=== PATIENT | male | born 1955 | race African-American/Black ===

== ENCOUNTER 2016-09-28 16:22 | Inpatient (IN) | payer MEDICAID ==
[~2016-09-28] VITALS: Ht 157.5 cm; Wt 66.0 kg
[2016-09-28 16:23] VITALS: BP 103/53
--- NOTE | 2016-09-28 16:44 | Emergency Room Report ---
History of Present Illness General Chief Complaint: Multiple Trauma/Fall Source: Patient, EMS Present Illness HPI 60 YO M BIBBOBBY with chest pain at friends house. patient states "my ribs hurt." Patient endorses smoking cocaine from a pipe prior to onset of chest pain. Also c/o SOB. Denies fever/chills, cough, abd pain. Was just discharged from outside hospital [facility] yesterday after 1 week stay. Had HD yesterday. Allergies: Coded Allergies: No Known Allergies (Unverified , 09/28/16) Patient History Past Medical History: DM, HTN Past Surgical History: none Pertinent Family History: none Social History: Reports: drug use, smoking, Denies: alcohol use Immunizations: UTD Reviewed Nursing Documentation: PMH: Agreed, PSxH: Agreed Nursing Documentation-PMH Past Medical History: No History, Except For Hx Hypertension: Yes Hx Diabetes: Yes Review of Systems All Other Systems: negative except mentioned in HPI Physical Exam Vital Signs Date Time Temp Pulse Resp B/P Pulse Ox O2 Delivery O2 Flow Rate FiO2 09/28/16 16:17 90 18 102/69 99 Room Air Sp02 EP Interpretation: reviewed, normal General Appearance: normal inspection, well appearing, no apparent distress, alert, GCS 15, non-toxic, obese, Chronically Ill Head: normocephalic, atraumatic Eyes: right eye EOMI, right eye PERRL, bilateral eye other - Hyphema of left eye. No proptosis. EOMI. PERRLA. No pain to orbit ENT: normal ENT inspection, hearing grossly normal, normal voice Neck: normal inspection, full range of motion, supple, no bony tend Respiratory: normal inspection, normal breath sounds, no respiratory distress, no retraction, no accessory muscle use, no wheezing, crackles Cardiovascular #1: regular rate, rhythm, no edema Gastrointestinal: normal inspection, normal bowel sounds, non tender, soft, no guarding, no hernia Genitourinary: no CVA tenderness Musculoskeletal: other - Pitting edema R>L Neurologic: normal inspection, alert, oriented x3, responsive, white sugar boiler III-XII nml as tested, normal gait, speech normal Psychiatric: normal inspection, judgement/insight normal, mood/affect normal Skin: normal color, no rash, other - extremely dry, excoriated skin Medical Decision Making Diagnostic Impression: Primary Impression: Chest pain Qualified Codes: R07.9 - Chest pain, unspecified Additional Impression: Cocaine abuse ER Course Chest pain s/p cocaine use. VSS. Afebrile. Recent 1 week stay for ? possibly dialysis DDx ACS, angina, cocaine induced ischemia, PTX, PNA PLAN Cardiac, O2 monitor, labs, EKG, CXR Bipap ASA Will HD if significantly abnormal labs Likely admission EKG Diagnostic Results Rate: other - bifasciular block Rhythm: NSR ST Segments: no acute changes ASA given to the pt in ED: Yes Rhythm Strip Diag. Results EP Interpretation: yes Rate: 87 Rhythm: NSR, no ectopy, other - Multiple PVCs Chest X-Ray Diagnostic Results EP Interpretation: Yes Findings: no pneumothorax, other - + cardiomegaly, R>L pulm congestion Reevaluation Time: 17:50 Last Vital Signs Date Time Temp Pulse Resp B/P Pulse Ox O2 Delivery O2 Flow Rate FiO2 09/28/16 16:17 90 18 102/69 99 Room Air Status: improved Reevaluation Impression Labs: No leuks. H&H stable. Troponin 0. SerumCr 4.7 (likely baseline). BNP 68K. Patient has not given urine for Utox. CXR shows bilateral pulm congestion, R>L EKG NSR with atrial complexes, bifascicular block A: Patient given ASA for cocaine induced chest pain. Improved with BIPAP Could not give nitro due to low BP Admitted to [facility] bed under Dr Argueta at 632p, Disposition: ADMITTED INPATIENT Condition: Serious Referrals: NOT CHOSEN JULIOCESAR/,REFERRING (PCP) KESHIA SUÁREZ M.D. Sep 28, 2016 16:44
[2016-09-28 17:15] LABS: BASOPHILS % (AUTO) 1.3 % (0.0-2.0); LYMPHOCYTES % (AUTO) 7.8 % (20.0-45.0); MEAN CORPUSCULAR HEMOGLOBIN 26.8 PG (27.0-31.0); MEAN CORPUSCULAR HGB CONC 30.8 G/DL (32.0-36.0); MEAN CORPUSCULAR VOLUME 87 FL (80-99); MEAN PLATELET VOLUME 7.7 FL (6.5-10.1); MONOCYTES % (AUTO) 8.1 % (1.0-10.0); NEUTROPHILS % (AUTO) 81.8 % (45.0-75.0); PLATELET COUNT 149 K/UL (150-450); RED BLOOD COUNT 3.93 M/UL (4.70-6.10); RED CELL DISTRIBUTION WIDTH 19.1 % (11.6-14.8); WHITE BLOOD COUNT 6.6 K/UL (4.8-10.8)
[2016-09-28 17:30] VITALS: BP 117/69
[2016-09-28 17:31] LABS: TROPONIN I < 0.30 ng/mL (<=0.30)
[2016-09-28 17:35] LABS: ALANINE AMINOTRANSFERASE 6 U/L (3-41); ALBUMIN/GLOBULIN RATIO 0.8 (1.0-2.7); ANION GAP 20 (5-15); ASPARTATE AMINO TRANSFERASE 22 U/L (5-40); CALCIUM 8.5 mg/dL (8.6-10.2); CARBON DIOXIDE 21 mEQ/L (20-30); CHLORIDE 95 mEQ/L (98-107); CREATININE 4.7 mg/dL (0.7-1.2); GLOMERULAR FILTRATION RATE 15.4 mL/min (>60); HEMOLYSIS 0; POTASSIUM 4.1 mEQ/L (3.4-4.9); SODIUM 136 mEQ/L (135-145); TOTAL PROTEIN 6.1 g/dL (6.6-8.7)
[2016-09-28 17:45] LABS: CKMB < 1.5 ng/mL (< 6.7)
[2016-09-28 17:58] LABS: BILIRUBIN,DIRECT 1.2 mg/dL (0.1-0.3)
[2016-09-28] MEDS ORDERED: Aspirin Baby 81mg ORAL ONE (18:00)
[2016-09-28 18:30] VITALS: BP 126/69
[2016-09-28] MEDS ORDERED: Miralax 17gm pkt ORAL PRN (19:30)
[2016-09-28] MEDS ORDERED: DuoNeb 0.5-3(2.5)mg/3ml neb HHN PRN (19:30)
[2016-09-28 19:34] VITALS: BP 128/77
[2016-09-28 21:45] VITALS: BP 123/68
[2016-09-28] MEDS: Heparin 5000 units/ml inj SUBQ SCH (22:30)
[2016-09-28] MEDS: NovoLOG Insulin Flexpen SUBQ SCH (22:30)
[2016-09-29] VITALS (8 sets, daily range): BP systolic 110–131; BP diastolic 54–72
[2016-09-29 06:00] LABS: BASOPHILS % (AUTO) 0.9 % (0.0-2.0); EOSINOPHILS % (AUTO) 1.2 % (0.0-3.0); LYMPHOCYTES % (AUTO) 17.1 % (20.0-45.0); MEAN CORPUSCULAR HEMOGLOBIN 26.9 PG (27.0-31.0); MEAN CORPUSCULAR HGB CONC 30.5 G/DL (32.0-36.0); MEAN CORPUSCULAR VOLUME 88 FL (80-99); MEAN PLATELET VOLUME 8.3 FL (6.5-10.1); MONOCYTES % (AUTO) 8.2 % (1.0-10.0); NEUTROPHILS % (AUTO) 72.6 % (45.0-75.0); PLATELET COUNT 112 K/UL (150-450); RED BLOOD COUNT 3.77 M/UL (4.70-6.10); RED CELL DISTRIBUTION WIDTH 19.2 % (11.6-14.8); WHITE BLOOD COUNT 6.9 K/UL (4.8-10.8)
[2016-09-29 06:29] LABS: CALCIUM 8.6 mg/dL (8.6-10.2); GLOMERULAR FILTRATION RATE 14.4 mL/min (>60); PHOSPHORUS 3.9 mg/dL (2.5-4.8); POTASSIUM 4.5 mEQ/L (3.4-4.9)
[2016-09-29] MEDS: NovoLOG Insulin Flexpen SUBQ SCH ×4 (06:30→20:53)
[2016-09-29 06:48] LABS: TROPONIN I < 0.30 ng/mL (<=0.30)
[2016-09-29] MEDS: Heparin 5000 units/ml inj SUBQ SCH ×2 (09:20→20:52)
--- NOTE | 2016-09-29 09:31 | Diagnostic Imaging Report ---
Indication: PAIN Technique: One view of the chest Comparison: none Findings: There is a right jugular tunneled dialysis catheter in place. The heart is enlarged. There is generalized bilateral interstitial congestion. No definite focal airspace consolidation. The right pleural space is clear. The left pleural space is probably clear. Impression: Cardiomegaly with evidence of congestive heart failure Dialysis catheter
--- NOTE | 2016-09-29 10:13 | Cardiac Electrophysiology PN ---
Subjective Subjective Cardiology consult dictated. [id number]. Avoid Beta blockers for cocaine use. No NC. Bifascicular block. Objective Last 24 Hour Vital Signs Date Time Temp Pulse Resp B/P Pulse Ox O2 Delivery O2 Flow Rate FiO2 09/29/16 04:00 89 09/29/16 04:00 97.9 79 18 117/61 98 Nasal Cannula 09/29/16 00:00 97.7 82 20 120/64 97 Room Air 09/29/16 00:00 76 09/28/16 21:45 97.0 86 20 123/68 100 Nasal Cannula 2.0 09/28/16 21:30 83 09/28/16 21:15 82 16 98 Facial 30 09/28/16 21:00 82 23 118/63 97 Bi-pap 30 09/28/16 19:34 85 17 128/77 100 Bi-pap 30 09/28/16 18:47 86 16 98 Facial 30 09/28/16 18:30 86 20 126/69 100 Bi-pap 30 09/28/16 18:05 83 17 100 Facial 30 09/28/16 18:02 83 17 Bi-pap 30 09/28/16 17:54 30 09/28/16 17:30 84 22 117/69 96 Room Air 09/28/16 16:23 97.0 86 21 103/53 97 Room Air 09/28/16 16:17 90 18 102/69 99 Room Air Laboratory Tests Test 09/28/16 16:48 09/29/16 03:40 White Blood Count 6.6 K/UL (4.8-10.8) 6.9 K/UL (4.8-10.8) Red Blood Count 3.93 M/UL (4.70-6.10) L 3.77 M/UL (4.70-6.10) L Hemoglobin 10.5 G/DL (14.2-18.0) L 10.2 G/DL (14.2-18.0) L Hematocrit 34.2 % (42.0-52.0) L 33.3 % (42.0-52.0) L Mean Corpuscular Volume 87 FL (80-99) 88 FL (80-99) Mean Corpuscular Hemoglobin 26.8 PG (27.0-31.0) L 26.9 PG (27.0-31.0) L Mean Corpuscular Hemoglobin Concent 30.8 G/DL (32.0-36.0) L 30.5 G/DL (32.0-36.0) L Red Cell Distribution Width 19.1 % (11.6-14.8) H 19.2 % (11.6-14.8) H Platelet Count 149 K/UL (150-450) L 112 K/UL (150-450) L Mean Platelet Volume 7.7 FL (6.5-10.1) 8.3 FL (6.5-10.1) Neutrophils (%) (Auto) 81.8 % (45.0-75.0) H 72.6 % (45.0-75.0) Lymphocytes (%) (Auto) 7.8 % (20.0-45.0) L 17.1 % (20.0-45.0) L Monocytes (%) (Auto) 8.1 % (1.0-10.0) 8.2 % (1.0-10.0) Eosinophils (%) (Auto) 1.0 % (0.0-3.0) 1.2 % (0.0-3.0) Basophils (%) (Auto) 1.3 % (0.0-2.0) 0.9 % (0.0-2.0) Sodium Level 136 mEQ/L (135-145) 139 mEQ/L (135-145) Potassium Level 4.1 mEQ/L (3.4-4.9) 4.5 mEQ/L (3.4-4.9) Chloride Level 95 mEQ/L (98-107) L 97 mEQ/L (98-107) L Carbon Dioxide Level 21 mEQ/L (20-30) 22 mEQ/L (20-30) Anion Gap 20 (5-15) H 20 (5-15) H Blood Urea Nitrogen 31 mg/dL (7-23) H 32 mg/dL (7-23) H Creatinine 4.7 mg/dL (0.7-1.2) H 5.0 mg/dL (0.7-1.2) H Estimat Glomerular Filtration Rate 15.4 mL/min (>60) 14.4 mL/min (>60) Glucose Level 75 mg/dL (74-106) 66 mg/dL (74-106) L Calcium Level 8.5 mg/dL (8.6-10.2) L 8.6 mg/dL (8.6-10.2) Total Bilirubin 1.7 mg/dL (0.0-1.2) H Direct Bilirubin 1.2 mg/dL (0.1-0.3) H Aspartate Amino Transf (AST/SGOT) 22 U/L (5-40) Alanine Aminotransferase (ALT/SGPT) 6 U/L (3-41) Alkaline Phosphatase 111 U/L (40-129) Total Creatine Kinase 57 U/L (38-174) Creatine Kinase MB < 1.5 ng/mL (< 6.7) Creatine Kinase MB Relative Index 2.6 Troponin I < 0.30 ng/mL (<=0.30) < 0.30 ng/mL (<=0.30) Pro-B-Type Natriuretic Peptide 55055 pg/mL (0-125) H Total Protein 6.1 g/dL (6.6-8.7) L Albumin 2.8 g/dL (3.5-5.2) L 2.8 g/dL (3.5-5.2) L Globulin 3.3 g/dL Albumin/Globulin Ratio 0.8 (1.0-2.7) L Phosphorus Level 3.9 mg/dL (2.5-4.8) DILIA GUERRERO Sep 29, 2016 10:13
--- NOTE | 2016-09-29 12:36 | Consultation ---
Consult Note Consult Note asked to eval for dialysis management 60 YO M BIBEMS with chest pain at friends house. patient states "my ribs hurt." Patient endorses smoking cocaine from a pipe prior to onset of chest pain. Also c/o SOB. Denies fever/chills, cough, abd pain. Was just discharged from outside hospital [facility]" yesterday after 1 week stay. Had HD yesterday. Past Medical History: DM, HTN Hx Hypertension: Yes Hx Diabetes: Yes ER Physical Exam - General Physical Exam Vital Signs Date Time Temp Pulse Resp B/P Pulse Ox O2 Delivery O2 Flow Rate FiO2 09/28/16 16:17 90 18 102/69 99 Room Air Sp02 EP Interpretation: reviewed, normal General Appearance: normal inspection, well appearing, no apparent distress, alert, GCS 15, non-toxic, obese, Chronically Ill Head: normocephalic, atraumatic Eyes: right eye EOMI, right eye PERRL, bilateral eye other - Hyphema of left eye. No proptosis. EOMI. PERRLA. 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
[2016-09-29 15:23] LABS: INR 1.4 (0.9-1.1); PROTHROMBIN TIME 14.4 SEC (9.30-11.50)
[2016-09-29 15:36] LABS: FERRITIN 711 ng/mL (10-230)
[2016-09-29 15:52] LABS: IRON 74 ug/dL (59-158); TOTAL IRON BINDING CAPACITY 209 ug/dL (250-400)
--- NOTE | 2016-09-29 15:58 | Consultation ---
History of Present Illness General Date patient seen: Sep 29, 2016 Present Illness Allergies: Coded Allergies: No Known Allergies (Unverified , 09/28/16) Patient History Healthcare decision maker Resuscitation status Advanced Directive on File Physical Exam Last 24 Hour Vital Signs Date Time Temp Pulse Resp B/P Pulse Ox O2 Delivery O2 Flow Rate FiO2 09/29/16 12:35 97.3 67 15 114/67 Room Air 09/29/16 12:35 Room Air 09/29/16 12:00 97.2 81 20 127/67 Room Air 09/29/16 08:00 98.2 82 20 131/72 96 09/29/16 08:00 96 09/29/16 04:00 89 09/29/16 04:00 97.9 79 18 117/61 98 Nasal Cannula 09/29/16 00:00 97.7 82 20 120/64 97 Room Air 09/29/16 00:00 76 09/28/16 21:45 97.0 86 20 123/68 100 Nasal Cannula 2.0 09/28/16 21:30 83 09/28/16 21:15 82 16 98 Facial 30 09/28/16 21:00 82 23 118/63 97 Bi-pap 30 09/28/16 19:34 85 17 128/77 100 Bi-pap 30 09/28/16 18:47 86 16 98 Facial 30 09/28/16 18:30 86 20 126/69 100 Bi-pap 30 09/28/16 18:05 83 17 100 Facial 30 09/28/16 18:02 83 17 Bi-pap 30 09/28/16 17:54 30 09/28/16 17:30 84 22 117/69 96 Room Air 09/28/16 16:23 97.0 86 21 103/53 97 Room Air 09/28/16 16:17 90 18 102/69 99 Room Air Laboratory Tests Test 09/28/16 16:48 09/29/16 03:40 09/29/16 14:44 White Blood Count 6.6 K/UL (4.8-10.8) 6.9 K/UL (4.8-10.8) Red Blood Count 3.93 M/UL (4.70-6.10) L 3.77 M/UL (4.70-6.10) L Hemoglobin 10.5 G/DL (14.2-18.0) L 10.2 G/DL (14.2-18.0) L Hematocrit 34.2 % (42.0-52.0) L 33.3 % (42.0-52.0) L Mean Corpuscular Volume 87 FL (80-99) 88 FL (80-99) Mean Corpuscular Hemoglobin 26.8 PG (27.0-31.0) L 26.9 PG (27.0-31.0) L Mean Corpuscular Hemoglobin Concent 30.8 G/DL (32.0-36.0) L 30.5 G/DL (32.0-36.0) L Red Cell Distribution Width 19.1 % (11.6-14.8) H 19.2 % (11.6-14.8) H Platelet Count 149 K/UL (150-450) L 112 K/UL (150-450) L Mean Platelet Volume 7.7 FL (6.5-10.1) 8.3 FL (6.5-10.1) Neutrophils (%) (Auto) 81.8 % (45.0-75.0) H 72.6 % (45.0-75.0) Lymphocytes (%) (Auto) 7.8 % (20.0-45.0) L 17.1 % (20.0-45.0) L Monocytes (%) (Auto) 8.1 % (1.0-10.0) 8.2 % (1.0-10.0) Eosinophils (%) (Auto) 1.0 % (0.0-3.0) 1.2 % (0.0-3.0) Basophils (%) (Auto) 1.3 % (0.0-2.0) 0.9 % (0.0-2.0) Sodium Level 136 mEQ/L (135-145) 139 mEQ/L (135-145) Potassium Level 4.1 mEQ/L (3.4-4.9) 4.5 mEQ/L (3.4-4.9) Chloride Level 95 mEQ/L (98-107) L 97 mEQ/L (98-107) L Carbon Dioxide Level 21 mEQ/L (20-30) 22 mEQ/L (20-30) Anion Gap 20 (5-15) H 20 (5-15) H Blood Urea Nitrogen 31 mg/dL (7-23) H 32 mg/dL (7-23) H Creatinine 4.7 mg/dL (0.7-1.2) H 5.0 mg/dL (0.7-1.2) H Estimat Glomerular Filtration Rate 15.4 mL/min (>60) 14.4 mL/min (>60) Glucose Level 75 mg/dL (74-106) 66 mg/dL (74-106) L Calcium Level 8.5 mg/dL (8.6-10.2) L 8.6 mg/dL (8.6-10.2) Total Bilirubin 1.7 mg/dL (0.0-1.2) H Direct Bilirubin 1.2 mg/dL (0.1-0.3) H Aspartate Amino Transf (AST/SGOT) 22 U/L (5-40) Alanine Aminotransferase (ALT/SGPT) 6 U/L (3-41) Alkaline Phosphatase 111 U/L (40-129) Total Creatine Kinase 57 U/L (38-174) Creatine Kinase MB < 1.5 ng/mL (< 6.7) Creatine Kinase MB Relative Index 2.6 Troponin I < 0.30 ng/mL (<=0.30) < 0.30 ng/mL (<=0.30) Pro-B-Type Natriuretic Peptide 98741 pg/mL (0-125) H Total Protein 6.1 g/dL (6.6-8.7) L Albumin 2.8 g/dL (3.5-5.2) L 2.8 g/dL (3.5-5.2) L Globulin 3.3 g/dL Albumin/Globulin Ratio 0.8 (1.0-2.7) L Neutrophils % (Manual) Pending Lymphocytes % (Manual) Pending Platelet Estimate Pending Platelet Morphology Pending Phosphorus Level 3.9 mg/dL (2.5-4.8) Erythrocyte Sedimentation Rate Pending Prothrombin Time 14.4 SEC (9.30-11.50) H Prothromb Time International Ratio 1.4 (0.9-1.1) H Iron Level 74 ug/dL (59-158) Total Iron Binding Capacity 209 ug/dL (250-400) L Percent Iron Saturation 35 % (15-50) Unsaturated Iron Binding 135 ug/dL (112-346) Ferritin 711 ng/mL (10-230) H Hepatitis A IgM Antibody Pending Hepatitis B Surface Antigen Pending Hepatitis B Core IgM Antibody Pending Hepatitis C Antibody Pending HIV (1&2) Antibody Rapid Negative (NEGATIVE) Microbiology Date/Time Source Procedure Growth Status 09/28/16 21:20 Back Gram Stain - Final Resulted 09/28/16 21:20 Back Wound Culture Pending Resulted Height (Feet): 5 Height (Inches): 2.00 Weight (Pounds): 180 Medications Current Medications Medications (Trade) Dose Ordered Sig/Lillian Route PRN Reason Start Time Stop Time Status Last Admin Dose Admin Acetaminophen (Tylenol) 650 mg Q4H PRN ORAL Fever 09/28/16 19:30 10/28/16 19:29 Albuterol/ Ipratropium (DuoNeb 0.5-3(2.5)mg/3ml) 3 ml EVERY 4 HOURS PRN HHN Shortness of Breath 09/28/16 19:30 10/03/16 19:29 Amlodipine Besylate (Norvasc) 5 mg DAILY ORAL 09/30/16 09:00 10/30/16 08:59 Dextrose (Dextrose 50%) STAT PRN IV Hypoglycemia 09/28/16 19:30 10/28/16 19:29 Heparin Sodium (Porcine) (Heparin 5000 units/ml) 5,000 units EVERY 12 HOURS SUBQ 09/28/16 21:00 10/28/16 20:59 09/29/16 09:20 Insulin Aspart (NovoLOG) BEFORE MEALS AND HS SUBQ 09/28/16 21:00 10/28/16 20:59 Ondansetron HCl (Zofran) 4 mg Q6H PRN IVP Nausea & Vomiting 09/28/16 19:30 10/28/16 19:29 Polyethylene Glycol (Miralax) 17 gm DAILYPRN PRN ORAL Constipation 09/28/16 19:30 10/28/16 19:29 Temazepam (Restoril) 15 mg HSPRN PRN ORAL Insomnia 09/28/16 19:30 10/05/16 19:29 Assessment/Plan Assessment/Plan (1) Cocaine abuse (2) Chest pain (3) CHF (4) ESRD on Hemodialysis Seen Dictated ARRON EDWARD Sep 29, 2016 15:58
[2016-09-29 15:59] LABS: ANISOCYTOSIS 2+; BAND NEUTROPHILS % (MANUAL) 0 % (0-8); BASOPHILS % (MANUAL) 0 % (0-2); EOSINOPHILS % (MANUAL) 0 % (0-3); HYPOCHROMASIA 1+; LYMPHOCYTES % (MANUAL) 15 % (20-45); NEUTROPHILS % (MANUAL) 78 % (45-75); PLATELET CLUMPS 2+; PLATELET ESTIMATE ADEQUATE; TOTAL CELLS COUNTED 100
[2016-09-29 16:00] LABS: BURR CELLS 1+
[2016-09-29 16:06] LABS: PATH BLOOD SMEAR/OMC SENT TO PATHOLOGIST
--- NOTE | 2016-09-29 17:54 | Wound Care Consultation ---
Wound Assessment Wound Assessment : Wound Present on Admission: Yes New Wound: No Status Change of Wound: No Wound Location Body Site Modif: right Wound Location Body Site: back Wound Type: traumatic injury Shari Test: Does not Shari Wound Thickness: Partial Thickness Wound Length: 0.5 Wound Width: 0.5 Wound Depth: 0.2 Percent of Wound Carter/Red: 100 Wound Drainage Description: Serosanguineous Wound Drainage Amount: Scant Wound Drainage Odor: None/Absent Tissue Surrounding Wound: Erythemic Wound General Appearance: Reddened Wound Comment #1 Right Lateral Back wound Recommendation -Keep clean and dry -Turn and reposition -Optimize nutrition -Local wound care as ordered with adaptic and dry drg -Assess and f/u accordingly for any changes MARY KAY IRIZARRY RN Sep 29, 2016 17:54
--- NOTE | 2016-09-29 18:33 | Consultation ---
History of Present Illness General Date patient seen: Sep 29, 2016 Chief Complaint: Multiple Trauma/Fall Reason for Consultation: shortness of breath after smoking cocaine use Present Illness HPI Patient is a 60 y/o man with extensive pmhx including ESRD, polysubstance abuse who presents to the emergency with c/o shortness of breath after most recent smoking cocaine use. Initial CXR in the ER reveals pulmovascular congestive changes. Patient being admitted and treated with oxygen therapy and close observation. Allergies: Coded Allergies: No Known Allergies (Unverified , 09/28/16) Patient History Healthcare decision maker Resuscitation status Advanced Directive on File Review of Systems Respiratory: Reports: BLUM, cough, orthopnea, see HPI, shortness of breath, stridor, wheezing Physical Exam General Appearance: moderate distress Lines, tubes and drains: peripheral HEENT: normocephalic, atraumatic, anicteric, PERRL Neck: non-tender, normal alignment, supple Respiratory/Chest: chest wall non-tender, decreased breath sounds, crackles/ rales, rhonchi - bilaterally Breasts: no masses Cardiovascular/Chest: normal peripheral pulses, regular rhythm, no JVD, tachycardia Abdomen: normal bowel sounds, non tender, soft, no organomegaly Genitourinary/Rectal: normal genital exam, normal rectal exam Extremities: normal range of motion, non-tender Skin Exam: palled 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, no motor/sensory deficits Last 24 Hour Vital Signs Date Time Temp Pulse Resp B/P Pulse Ox O2 Delivery O2 Flow Rate FiO2 09/29/16 17:09 98.1 71 15 117/66 Nasal Cannula 09/29/16 17:08 Room Air 2.0 30 09/29/16 17:04 Room Air 09/29/16 16:00 97.1 90 23 118/54 100 Room Air 09/29/16 16:00 71 09/29/16 12:35 97.3 67 15 114/67 Room Air 09/29/16 12:35 Room Air 09/29/16 12:00 97.2 81 20 127/67 Room Air 09/29/16 08:00 98.2 82 20 131/72 96 09/29/16 08:00 96 09/29/16 04:00 89 09/29/16 04:00 97.9 79 18 117/61 98 Nasal Cannula 09/29/16 00:00 97.7 82 20 120/64 97 Room Air 09/29/16 00:00 76 09/28/16 21:45 97.0 86 20 123/68 100 Nasal Cannula 2.0 09/28/16 21:30 83 09/28/16 21:15 82 16 98 Facial 30 09/28/16 21:00 82 23 118/63 97 Bi-pap 30 09/28/16 19:34 85 17 128/77 100 Bi-pap 30 09/28/16 18:47 86 16 98 Facial 30 Intake and Output 09/28/16 09/29/16 19:00 07:00 # Voids 2 # Bowel Movements 2 Laboratory Tests Test 09/29/16 03:40 09/29/16 14:44 White Blood Count 6.9 K/UL (4.8-10.8) Red Blood Count 3.77 M/UL (4.70-6.10) L Hemoglobin 10.2 G/DL (14.2-18.0) L Hematocrit 33.3 % (42.0-52.0) L Mean Corpuscular Volume 88 FL (80-99) Mean Corpuscular Hemoglobin 26.9 PG (27.0-31.0) L Mean Corpuscular Hemoglobin Concent 30.5 G/DL (32.0-36.0) L Red Cell Distribution Width 19.2 % (11.6-14.8) H Platelet Count 112 K/UL (150-450) L Mean Platelet Volume 8.3 FL (6.5-10.1) Neutrophils (%) (Auto) 72.6 % (45.0-75.0) Lymphocytes (%) (Auto) 17.1 % (20.0-45.0) L Monocytes (%) (Auto) 8.2 % (1.0-10.0) Eosinophils (%) (Auto) 1.2 % (0.0-3.0) Basophils (%) (Auto) 0.9 % (0.0-2.0) Differential Total Cells Counted 100 Neutrophils % (Manual) 78 % (45-75) H Lymphocytes % (Manual) 15 % (20-45) L Monocytes % (Manual) 7 % (1-10) Eosinophils % (Manual) 0 % (0-3) Basophils % (Manual) 0 % (0-2) Band Neutrophils 0 % (0-8) Platelet Estimate Adequate Platelet Morphology Clumped Platelets 2+ Hypochromasia 1+ Anisocytosis 2+ [place] Cells 1+ Sodium Level 139 mEQ/L (135-145) Potassium Level 4.5 mEQ/L (3.4-4.9) Chloride Level 97 mEQ/L (98-107) L Carbon Dioxide Level 22 mEQ/L (20-30) Anion Gap 20 (5-15) H Blood Urea Nitrogen 32 mg/dL (7-23) H Creatinine 5.0 mg/dL (0.7-1.2) H Estimat Glomerular Filtration Rate 14.4 mL/min (>60) Glucose Level 66 mg/dL (74-106) L Calcium Level 8.6 mg/dL (8.6-10.2) Phosphorus Level 3.9 mg/dL (2.5-4.8) Troponin I < 0.30 ng/mL (<=0.30) Albumin 2.8 g/dL (3.5-5.2) L Erythrocyte Sedimentation Rate 18 MM/HR (0-20) Prothrombin Time 14.4 SEC (9.30-11.50) H Prothromb Time International Ratio 1.4 (0.9-1.1) H Iron Level 74 ug/dL (59-158) Total Iron Binding Capacity 209 ug/dL (250-400) L Percent Iron Saturation 35 % (15-50) Unsaturated Iron Binding 135 ug/dL (112-346) Ferritin 711 ng/mL (10-230) H Hepatitis A IgM Antibody Pending Hepatitis B Surface Antigen Pending Hepatitis B Core IgM Antibody Pending Hepatitis C Antibody Pending HIV (1&2) Antibody Rapid Negative (NEGATIVE) Microbiology Date/Time Source Procedure Growth Status 09/28/16 21:20 Back Gram Stain - Final Resulted 09/28/16 21:20 Back Wound Culture Pending Resulted Height (Feet): 5 Height (Inches): 2.00 Weight (Pounds): 180 Medications Current Medications Medications (Trade) Dose Ordered Sig/Lillian Route PRN Reason Start Time Stop Time Status Last Admin Dose Admin Acetaminophen (Tylenol) 650 mg Q4H PRN ORAL Fever 09/28/16 19:30 10/28/16 19:29 Albuterol/ Ipratropium (DuoNeb 0.5-3(2.5)mg/3ml) 3 ml EVERY 4 HOURS PRN HHN Shortness of Breath 09/28/16 19:30 10/03/16 19:29 Amlodipine Besylate (Norvasc) 5 mg DAILY ORAL 09/30/16 09:00 10/30/16 08:59 Dextrose (Dextrose 50%) STAT PRN IV Hypoglycemia 09/28/16 19:30 10/28/16 19:29 Heparin Sodium (Porcine) (Heparin 5000 units/ml) 5,000 units EVERY 12 HOURS SUBQ 09/28/16 21:00 10/28/16 20:59 09/29/16 09:20 Insulin Aspart (NovoLOG) BEFORE MEALS AND HS SUBQ 09/28/16 21:00 10/28/16 20:59 Ondansetron HCl (Zofran) 4 mg Q6H PRN IVP Nausea & Vomiting 09/28/16 19:30 10/28/16 19:29 Polyethylene Glycol (Miralax) 17 gm DAILYPRN PRN ORAL Constipation 09/28/16 19:30 10/28/16 19:29 Temazepam (Restoril) 15 mg HSPRN PRN ORAL Insomnia 09/28/16 19:30 10/05/16 19:29 CARLOS ALBERTO HERMAN Sep 29, 2016 18:33
--- NOTE | 2016-09-29 20:03 | Cardiology Report ---
APPROVED REPORT EXAM: Two-dimensional and M-mode echocardiogram with Doppler and color Doppler. INDICATION Left ventricular function M-Mode DIMENSIONS IVSd0.9 (0.7-1.1cm)Left Atrium (MM)3.7 (1.6-4.0cm) LVDd6.4 (3.5-5.6cm)Aortic Root3.3 (2.0-3.7cm) PWd1.0 (0.7-1.1cm)Aortic Cusp Exc.1.8 (1.5-2.0cm) LVDs5.3 (2.5-4.0cm) PWs1.2 cm Moderate left ventricular enlargement. Global left ventricular hypokinesis. Worse septal apper akinetic s. Left ventricular ejection fraction estimated to be 30-35 %. No evidence of left ventricular hypertrophy. No evidence of pericardial fat or effusion. Severe right atrial enlargement by 2D. Mild right atrial enlargement by 2D. Focal aortic valve sclerosis with adequate cusp excursion Mildly thickened mitral valve leaflets with normal excursion. Mitral annulus and aortic root calcification. Pulmonic valve is well visualized. Normal tricuspid valve structure. IVC dilated at 2.7cm no physiologic collapse with respiration.RA pressure of 20mmHg. A color flow and spectral Doppler study was performed and revealed: No aortic regurgitation. Severe mitral regurgitation. Left ventricular diastolic dysfunction not obtainable due to arrhythmia. Severe tricuspid regurgitation. Tricuspid systolic velocities suggests peak right ventricular systolic pressure of 50 mmHg Consistent with moderate pulmonary hypertension. Pulmonic regurgitation present.
--- NOTE | 2016-09-29 20:28 | Consultation ---
DATE OF CONSULTATION: 09/29/2016 CARDIOLOGY CONSULTATION REFERRING PHYSICIAN: Liu Elizondo M.D. REASON FOR CONSULTATION: Chest pain. HISTORY OF PRESENT ILLNESS: The patient is a 60-year-old gentleman with history of hypertension and end-stage renal disease on hemodialysis as well as diabetes, who was just discharged from outside hospital just yesterday. The patient states that he started getting chest pain after he smoked cocaine from a pipe. The patient came to the emergency room and EKG showed sinus rhythm with PACs and right bundle-branch block and left posterior fascicular block, but no acute ST-T wave changes. Cardiology consultation was obtained for further evaluation. The patient had hemodialysis the day prior to admission. REVIEW OF SYSTEMS: Review of systems was negative other than what was mentioned in the history of present illness. PAST MEDICAL HISTORY: 1. Hypertension. 2. Diabetes. 3. End-stage renal disease, on hemodialysis. FAMILY HISTORY: Noncontributory. SOCIAL HISTORY: He uses cocaine and smokes tobacco. PHYSICAL EXAMINATION: VITAL SIGNS: Blood pressure is 117/61, pulse 79, respirations 18, and he is afebrile. HEAD AND NECK: Showed no jugular venous distention or carotid bruits. LUNGS: Clear. CARDIOVASCULAR: Shows regular S1 and S2 with no gallop or murmur. ABDOMEN: Soft and nontender. EXTREMITIES: No pitting edema. He has a dialysis access in the right chest. LABORATORY DATA: His labs showed a white count 6.9, hematocrit 10.2, hematocrit 33, and platelet count was 112,000. Sodium 139, potassium 4.5, BUN of 32, creatinine 5, and glucose of 66. BNP 8377. Troponins are negative x2. ASSESSMENT AND PLAN: 1. Chest pain after using cocaine. This was likely due to vasospasm. The patient was ruled out for myocardial infarction. EKG showed acute ST and T-wave abnormality. We will avoid beta-david in view of the patient's cocaine use. We will get an echocardiogram to evaluate for ejection fraction and wall motion abnormality. 2. History of hypertension. angiotensin receptor blockers in view of the patient's renal failure and risk of hyperkalemia, beta-david for the patient's cocaine use. The patient is on Norvasc 5 mg daily. 3. End-stage renal disease, on hemodialysis. 4. Diabetes. 5. Substance abuse with cocaine. Thank you very much, Dr. Elizondo, for allowing me to participate in the care of this patient. Please do not hesitate to contact me for any questions regarding my evaluation. Domingo Escalera M.D. DR: AR JOB#: [id number] CC:
--- NOTE | 2016-09-29 20:46 | Cardiology Report ---
APPROVED REPORT EKG Measurement Heart [id number] Sinus rhythm with premature atrial complexes with aberrant conduction Right bundle branch block Left posterior fascicular block Bifascicular block Cannot rule out Anterior infarct, age undetermined Abnormal ECG
--- NOTE | 2016-09-29 23:18 | Consultation ---
DATE OF CONSULTATION: 09/29/2016 HEMATOLOGY/ONCOLOGY CONSULTATION CONSULTING PHYSICIAN: Hugh Lopez M.D REQUESTING PHYSICIAN: Liu Elizondo M.D. REASON FOR CONSULTATION: Evaluation of anemia and thrombocytopenia. IDENTIFICATION: Dear Dr. Caro Hatfield, The patient is a pleasant 60-year-old female with past medical history significant for hypertension, diabetes, end-stage renal disease ____ at this time presents to [facility] with recently smoked cocaine prior to the chest pain. Cardiology service as well as Nephrology was consulted the patient had recently hemodialysis. The patient was noted to be anemic upon presentation with hemoglobin 10.2 and platelet count decreased to 112,000; therefore, service was consulted for further evaluation and treatment. BNP . PAST MEDICAL HISTORY: Hypertension, diabetes mellitus, oliguria, end-stage renal disease. PAST SURGICAL HISTORY: None noted. MEDICATIONS: Reviewed. ALLERGIES: No significant drug allergy. SOCIAL HISTORY: No alcohol or tobacco use however does have illicit drug use of cocaine. REVIEW OF SYSTEMS: Constitutional: No fever, chills, or night sweats. Skin: No rashes, lumps, or itching. HEENT: No headache or vision changes. Breasts: No lumps, pain, or discharge. Pulmonary: No cough, sputum, or shortness of breath. Cardiovascular: The patient does have some chest pain . Gastrointestinal: No nausea, vomiting, or diarrhea. Genitourinary: No dysuria, frequency, or urgency. Musculoskeletal: No joint swelling or muscle pain. Neurological: No dizziness, fainting, or seizures reported. PHYSICAL EXAMINATION: GENERAL: The patient is in no acute distress. VITAL SIGNS: Temperature is 97.8 degrees Fahrenheit , pulse 81, respiratory rate 20, blood pressure 127/67, and pulse oximetry 96% on room air. PULMONARY: Decreased breath sounds. CARDIOVASCULAR: Regular rate. ABDOMEN: Soft, nontender, and nondistended. EXTREMITIES: A 1+ edema. LABORATORY AND DIAGNOSTIC DATA: BUN of 32 and creatinine 5. WBC 6.9, hemoglobin 10.2, and hematocrit 33, platelet count 112,000. Troponin less than 0.02. ASSESSMENT: 1. Anemia secondary to end-stage renal disease. 2. Decreased hemoglobin and hematocrit, rule out gastrointestinal bleed. 3. Thrombocytopenia potentially secondary to underlying infection. 4. Hypertension. 5. Diabetes mellitus. 6. End-stage renal disease on hemodialysis. 7. Cocaine use history. RECOMMENDATIONS: 1. Monitor counts. 2. Transfuse if hemoglobin less than 7.5. 3. We will order HIV and hepatitis panel. 4. INR has been ordered to evaluate coagulopathy 5. Ultrasound of the abdomen ordered to rule out hepatosplenomegaly given thrombocytopenia. 6. Peripheral smear pending. 7. Anemia workup has been sent. 8. We will followup on Nephrology, Pulmonary, and Cardiology recommendation. 9. DVT prophylaxis with heparin. 10. GI prophylaxis as needed. 11. Pain control. 12. Discussed with staff. Thank you, Dr. Liu Elizondo, for this kind referral. Please do not hesitate to contact me with any further questions. Hugh Lopez M.D. DR: Deja JOB#: [id number] CC:
--- NOTE | 2016-09-30 00:17 | History and Physical Report ---
DATE OF ADMISSION: 09/28/2016 HISTORY OF PRESENT ILLNESS: The patient came in with cocaine-induced chest pain and pulmonary edema. Patient since yesterday. BNP was elevated as well, so brought down to [facility]. Basically the patient had chest pain. The patient reported that he had been smoking cocaine prior to the chest pain onset, also he is complaining of shortness of breath. Denies any nausea, vomiting, diarrhea. Denies cough. PAST MEDICAL HISTORY: Malignant hypertension, drug abuse, hypertension, diabetes, insomnia, constipation. PAST SURGICAL HISTORY: Surgery related to dialysis for access. MEDICATIONS: He is on Norvasc. ALLERGIES: No known allergies. SOCIAL HISTORY: Does have a history of drug abuse. FAMILY HISTORY: Unable to obtain. REVIEW OF SYSTEMS: HEENT: Denies headache. Respiratory: Does have shortness of breath. Denies cough. Cardiovascular: Reported chest pain for a couple of days. Gastrointestinal: . Does have occasional heartburn. Extremities: Does have generalized chronic pain. Central Nervous System: Denies change in vision or speech pattern. PHYSICAL EXAMINATION: VITAL SIGNS: Temperature is 97 degrees, pulse 86, and blood pressure is 123/63. HEENT: PERRLA. NECK: Supple. No lymphadenopathy. CHEST: Clear to auscultation. CARDIOVASCULAR: Regular rate and rhythm. No murmurs, rubs, or gallops. GASTROINTESTINAL: Soft, distended, and nontender. No organomegaly. Positive bowel sounds. EXTREMITIES: Moves all four extremities. Reflexes are equal on both sides. LABORATORY DATA: WBC of 6.6, hemoglobin 10.5, and platelets 149,000. Sodium 132, potassium 4.1, BUN of 31, creatinine 0.7, glucose 75. Chest x-ray shows possible pulmonary edema. He has elevated CPK. ASSESSMENT: 1. Pulmonary edema. 2. Chest pain, rule out congestive heart failure exacerbation. 3. End-stage renal disease on hemodialysis, the patient missed dialysis, as well as has a history of drug abuse. I have asked Dr. Mas, Dr. Duran, Dr. Rodriguez, Dr. Escalera to see the patient for the above-mentioned diagnoses and treatment. Liu Elizondo M.D. DR: Krista JOB#: [id number] CC:
[2016-09-30 00:37] VITALS: BP 129/71
--- NOTE | 2016-09-30 01:48 | Consultation ---
DATE OF CONSULTATION: PAIN MANAGEMENT CONSULTATION: CONSULTING PHYSICIAN: Rosario Rodriguez M.D. REFERRING PHYSICIAN: Liu Elizondo M.D. CHIEF COMPLAINT: Chest pain. HISTORY OF PRESENT ILLNESS: The patient is a 60-year-old male, who is being seen in the [facility] for initial comprehensive pain management consultation. The patient has a history of hypertension, end-stage renal disease on hemodialysis, diabetes, had been discharged from outside hospital Patient admits that he smoked cocaine from a pipe and started to have chest pain and was under the care of Dr. Elizondo. He had been seen by camera mechanic and this time, . PAST MEDICAL HISTORY: Hypertension, diabetes, end-stage renal disease on hemodialysis, and CHF. ALLERGIES: No known drug allergies. SOCIAL HISTORY: He is a cocaine abuser and smokes tobacco. Denies alcohol abuse. REVIEW OF SYSTEMS: Denies rash, fever, chills, sweating, dizziness, drowsiness, blurred vision, sore throat, or change in weight. No nausea, vomiting, diarrhea, or blood in the stool or urine. No bowel or bladder incontinence. No dysuria. He is complaining of chest pain. PHYSICAL EXAMINATION: GENERAL: Alert, awake, and oriented. VITAL SIGNS: Blood pressure is 129/70, heart rate 82, respiratory rate 20, and temperature 98 degrees Fahrenheit. HEENT: PERRLA. NECK: Range of motion is full in all directions. No tenderness to paracervical muscles. No adenopathy. LUNGS: Decreased breath sounds bilaterally. HEART: S1 and S2, regular. ABDOMEN: Obese. BACK: Range of motion is decreased in flexion and extension with tenderness to paraspinous and trapezius muscles. EXTREMITIES: Right upper extremity range of motion is reduced due to the catheter placement and swelling. Left upper extremity range of motion is full in all directions. Sensory is intact. Reflexes are normal. No adenopathy. Lower extremity range of motion is full in all directions. No cyanosis, no clubbing, and no edema. Sensory is intact. Reflexes are normal. No adenopathy. ASSESSMENT AND PLAN: This is a 60-year-old male with cocaine abuse, chest pain , CHF, end-stage renal disease on hemodialysis Tylenol 650 mg as needed for pain. The patient was discussed with Dr. Rodriguez and Dr. Rodriguez concurred. We will follow the patient. Thank you very much for the courtesy of this consultation. Rosario Rodriguez M.D. IVETT Henry DR: Shauna JOB#: [id number] CC: JOEY
[2016-09-30 04:00] VITALS: BP 139/80
[2016-09-30 06:14] LABS: BASOPHILS % (AUTO) 0.9 % (0.0-2.0); EOSINOPHILS % (AUTO) 0.6 % (0.0-3.0); MEAN CORPUSCULAR HEMOGLOBIN 26.8 PG (27.0-31.0); MEAN CORPUSCULAR HGB CONC 30.5 G/DL (32.0-36.0); MEAN CORPUSCULAR VOLUME 88 FL (80-99); MONOCYTES % (AUTO) 8.5 % (1.0-10.0); NEUTROPHILS % (AUTO) 78.9 % (45.0-75.0); PLATELET COUNT 153 K/UL (150-450); RED BLOOD COUNT 3.17 M/UL (4.70-6.10); RED CELL DISTRIBUTION WIDTH 19.5 % (11.6-14.8); WHITE BLOOD COUNT 8.9 K/UL (4.8-10.8)
[2016-09-30] MEDS: NovoLOG Insulin Flexpen SUBQ SCH ×4 (06:27→20:05)
[2016-09-30 06:51] LABS: TROPONIN I < 0.30 ng/mL (<=0.30)
[2016-09-30 06:58] LABS: HEMOGLOBIN A1C 5.7 % (< 6.0)
[2016-09-30 06:59] LABS: CRP QUANT 5.3 mg/dL (< 0.5); URIC ACID 3.7 mg/dL (3.0-7.5)
[2016-09-30 07:00] LABS: ALBUMIN/GLOBULIN RATIO 0.8 (1.0-2.7); CALCIUM 8.5 mg/dL (8.6-10.2); CHOLESTEROL/HDL RATIO 4.3 (3.3-4.4); GLOMERULAR FILTRATION RATE 18.5 mL/min (>60); POTASSIUM 4.6 mEQ/L (3.4-4.9); TOTAL PROTEIN 6.3 g/dL (6.6-8.7)
[2016-09-30 07:06] LABS: THYROID STIMULATING HORMONE 4.03 uIU/mL (0.300-4.500)
[2016-09-30 08:00] VITALS: BP 132/68
[2016-09-30] MEDS: Heparin 5000 units/ml inj SUBQ SCH ×2 (08:50→20:05)
[2016-09-30 08:51] LABS: BILIRUBIN,DIRECT 0.8 mg/dL (0.1-0.3)
--- NOTE | 2016-09-30 08:58 | General Progress Note ---
Assessment/Plan Problem List: (1) Cocaine abuse ICD Codes: F14.10 - Cocaine abuse, uncomplicated SNOMED: 86443557, [id number] (2) Chest pain ICD Codes: R07.9 - Chest pain, unspecified SNOMED: 75486526, [id number] Qualifiers: Qualified Codes: R07.9 - Chest pain, unspecified Status: progressing Assessment/Plan afebrile vitals stable reviewed chart and labs no cp afebrile clinically improving Subjective ROS Limited/Unobtainable: Yes Constitutional: Reports: no symptoms Allergies: Coded Allergies: No Known Allergies (Unverified , 09/28/16) Objective Last 24 Hour Vital Signs Date Time Temp Pulse Resp B/P Pulse Ox O2 Delivery O2 Flow Rate FiO2 09/30/16 08:49 96 139/80 09/30/16 04:00 96 09/30/16 04:00 98.2 114 20 139/80 94 Room Air 09/30/16 00:37 97.4 102 28 129/71 90 Room Air 09/30/16 00:00 104 09/29/16 20:00 96.8 98 23 110/60 95 Room Air 09/29/16 20:00 100 09/29/16 17:09 98.1 71 15 117/66 Nasal Cannula 09/29/16 17:08 Room Air 2.0 30 09/29/16 17:04 Room Air 09/29/16 16:00 97.1 90 23 118/54 100 Room Air 09/29/16 16:00 71 09/29/16 12:35 97.3 67 15 114/67 Room Air 09/29/16 12:35 Room Air 09/29/16 12:00 97.2 81 20 127/67 Room Air Intake and Output 09/29/16 09/30/16 19:00 07:00 Intake Total 480 ml Output Total 3100 ml Balance -3100 ml 480 ml Intake Oral 480 ml Output Hemodialysis UF 3100 ml # Voids 5 # Bowel Movements 4 5 Laboratory Tests 09/29/16 14:44: Erythrocyte Sedimentation Rate 18, Prothrombin Time 14.4H, Prothromb Time International Ratio 1.4H, Iron Level 74, Total Iron Binding Capacity 209L, Percent Iron Saturation 35, Unsaturated Iron Binding 135, Ferritin 711H, Hepatitis A IgM Antibody Negative, Hepatitis B Surface Antigen Negative, Hepatitis B Core IgM Antibody Negative, Hepatitis C Antibody <0.1, HIV (1&2) Antibody Rapid Negative 09/30/16 04:55: White Blood Count 8.9, Red Blood Count 3.17L, Hemoglobin 8.5L, Hematocrit 27.9L , Mean Corpuscular Volume 88, Mean Corpuscular Hemoglobin 26.8L, Mean Corpuscular Hemoglobin Concent 30.5L, Red Cell Distribution Width 19.5H, Platelet Count 153, Mean Platelet Volume 8.0, Neutrophils (%) (Auto) 78.9H, Lymphocytes (%) (Auto) 11.0L, Monocytes (%) (Auto) 8.5, Eosinophils (%) (Auto) 0.6, Basophils (%) (Auto) 0.9, Sodium Level 138, Potassium Level 4.6, Chloride Level 94L, Carbon Dioxide Level 27, Anion Gap 17H, Blood Urea Nitrogen 59#H, Creatinine 4.0H, Estimat Glomerular Filtration Rate 18.5, Glucose Level 78, Hemoglobin A1c 5.7, Uric Acid 3.7, Calcium Level 8.5L, Phosphorus Level 3.0, Magnesium Level 2.0, Total Bilirubin 1.5H, Direct Bilirubin [Pending], Gamma Glutamyl Transpeptidase 34, Aspartate Amino Transf (AST/SGOT) 22, Alanine Aminotransferase (ALT/SGPT) 6, Alkaline Phosphatase 108, Ammonia 59, Total Creatine Kinase 49, Troponin I < 0.30, C-Reactive Protein, Quantitative 5.3H, Pro-B-Type Natriuretic Peptide > 90946Y, Total Protein 6.3L, Albumin 2.9L, Globulin 3.4, Albumin/Globulin Ratio 0.8L, Triglycerides Level 75, Cholesterol Level 113, LDL Cholesterol 72, HDL Cholesterol 26, Cholesterol/HDL Ratio 4.3, Thyroid Stimulating Hormone (TSH) 4.030, Free Thyroxine 0.69L Height (Feet): 5 Height (Inches): 2.00 Weight (Pounds): 180 EENT: PERRL/EOMI Neck: supple Cardiovascular: normal rate Respiratory/Chest: lungs clear Abdomen: soft Liu Elizondo MD Sep 30, 2016 08:58
--- NOTE | 2016-09-30 11:06 | General Progress Note ---
Assessment/Plan Assessment/Plan (1) Cocaine abuse (2) Chest pain (3) CHF (4) ESRD on Hemodialysis Pt will be continued on current medication regimen. Pt was d/w Dr. Rodriguez and he concurred. Subjective Allergies: Coded Allergies: No Known Allergies (Unverified , 09/28/16) Subjective REVIEW OF SYSTEMS: Denies rash, fever, chills, sweating, dizziness, drowsiness, blurred vision, sore throat, or change in weight. No nausea, vomiting, diarrhea, or blood in the stool or urine. No bowel or bladder incontinence. No dysuria. SUBJECTIVE: Pt is comfortable in bed in no pain at this time. Objective Last 24 Hour Vital Signs Date Time Temp Pulse Resp B/P Pulse Ox O2 Delivery O2 Flow Rate FiO2 09/30/16 08:49 96 139/80 09/30/16 08:00 97.7 99 20 132/68 97 Room Air 09/30/16 08:00 90 09/30/16 06:41 97 19 Room Air 21 09/30/16 04:00 96 09/30/16 04:00 98.2 114 20 139/80 94 Room Air 09/30/16 00:37 97.4 102 28 129/71 90 Room Air 09/30/16 00:00 104 09/29/16 20:00 96.8 98 23 110/60 95 Room Air 09/29/16 20:00 100 09/29/16 17:09 98.1 71 15 117/66 Nasal Cannula 09/29/16 17:08 Room Air 2.0 30 09/29/16 17:04 Room Air 09/29/16 16:00 97.1 90 23 118/54 100 Room Air 09/29/16 16:00 71 09/29/16 12:35 97.3 67 15 114/67 Room Air 09/29/16 12:35 Room Air 09/29/16 12:00 97.2 81 20 127/67 Room Air Intake and Output 09/29/16 09/30/16 19:00 07:00 Intake Total 480 ml Output Total 3100 ml Balance -3100 ml 480 ml Intake Oral 480 ml Output Hemodialysis UF 3100 ml # Voids 5 # Bowel Movements 4 5 Laboratory Tests 09/29/16 14:44: Erythrocyte Sedimentation Rate 18, Prothrombin Time 14.4H, Prothromb Time International Ratio 1.4H, Iron Level 74, Total Iron Binding Capacity 209L, Percent Iron Saturation 35, Unsaturated Iron Binding 135, Ferritin 711H, Hepatitis A IgM Antibody Negative, Hepatitis B Surface Antigen Negative, Hepatitis B Core IgM Antibody Negative, Hepatitis C Antibody <0.1, HIV (1&2) Antibody Rapid Negative 09/30/16 04:55: White Blood Count 8.9, Red Blood Count 3.17L, Hemoglobin 8.5L, Hematocrit 27.9L , Mean Corpuscular Volume 88, Mean Corpuscular Hemoglobin 26.8L, Mean Corpuscular Hemoglobin Concent 30.5L, Red Cell Distribution Width 19.5H, Platelet Count 153, Mean Platelet Volume 8.0, Neutrophils (%) (Auto) 78.9H, Lymphocytes (%) (Auto) 11.0L, Monocytes (%) (Auto) 8.5, Eosinophils (%) (Auto) 0.6, Basophils (%) (Auto) 0.9, Sodium Level 138, Potassium Level 4.6, Chloride Level 94L, Carbon Dioxide Level 27, Anion Gap 17H, Blood Urea Nitrogen 59#H, Creatinine 4.0H, Estimat Glomerular Filtration Rate 18.5, Glucose Level 78, Hemoglobin A1c 5.7, Uric Acid 3.7, Calcium Level 8.5L, Phosphorus Level 3.0, Magnesium Level 2.0, Total Bilirubin 1.5H, Direct Bilirubin 0.8H, Gamma Glutamyl Transpeptidase 34, Aspartate Amino Transf (AST/SGOT) 22, Alanine Aminotransferase (ALT/SGPT) 6, Alkaline Phosphatase 108, Ammonia 59, Total Creatine Kinase 49, Troponin I < 0.30, C-Reactive Protein, Quantitative 5.3H, Pro-B-Type Natriuretic Peptide > 38945B, Total Protein 6.3L, Albumin 2.9L, Globulin 3.4, Albumin/Globulin Ratio 0.8L, Triglycerides Level 75, Cholesterol Level 113, LDL Cholesterol 72, HDL Cholesterol 26, Cholesterol/HDL Ratio 4.3, Thyroid Stimulating Hormone (TSH) 4.030, Free Thyroxine 0.69L Height (Feet): 5 Height (Inches): 2.00 Weight (Pounds): 180 Objective PHYSICAL EXAMINATION: GENERAL: Alert, awake, and oriented. HEENT: PERRLA. NECK: Range of motion is full in all directions. No tenderness to paracervical muscles. No adenopathy. LUNGS: Decreased breath sounds bilaterally. HEART: S1 and S2, regular. ABDOMEN: Obese. BACK: Range of motion is decreased in flexion and extension with tenderness to paraspinous and trapezius muscles. EXTREMITIES: No cyanosis, no clubbing, and no edema. NEURO: No changes. ARRON EDWARD Sep 30, 2016 11:06
--- NOTE | 2016-09-30 11:49 | General Progress Note ---
Assessment/Plan Assessment/Plan ASSESSMENT: 1. Anemia secondary to end-stage renal disease. Ferritin is 711 2. Decreased hemoglobin and hematocrit, rule out gastrointestinal bleed. 3. Thrombocytopenia potentially secondary to underlying infection. hep and hiv negative 4. Coagulopathy INR is 1.4 5. Diabetes mellitus. 6. End-stage renal disease on hemodialysis. 7. Cocaine use history. RECOMMENDATIONS: 1. Monitor counts. 2. Transfuse if hemoglobin less than 7.5. 4. INR has been ordered to evaluate coagulopathy--> elevated get a US abd 5. Ultrasound of the abdomen 6. Peripheral smear pending. 7. Anemia workup has been reviewed 8. We will followup on Nephrology, Pulmonary, and Cardiology recommendations 9. DVT prophylaxis with heparin. 10. GI prophylaxis as needed. 11. Pain control. 12. Discussed with staff. Thank you, Hugh Lopez MD Subjective Constitutional: Reports: no symptoms HEENT: Reports: no symptoms Cardiovascular: Reports: no symptoms Respiratory: Reports: no symptoms Gastrointestinal/Abdominal: Reports: no symptoms Genitourinary: Reports: no symptoms 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: Reports: no symptoms Endocrine: Reports: no symptoms Hematologic/Lymphatic: Reports: anemia Allergies: Coded Allergies: No Known Allergies (Unverified , 09/28/16) Subjective stable, monitoring h/h Objective Last 24 Hour Vital Signs Date Time Temp Pulse Resp B/P Pulse Ox O2 Delivery O2 Flow Rate FiO2 09/30/16 08:49 96 139/80 09/30/16 08:00 97.7 99 20 132/68 97 Room Air 09/30/16 08:00 90 09/30/16 06:41 97 19 Room Air 21 09/30/16 04:00 96 09/30/16 04:00 98.2 114 20 139/80 94 Room Air 09/30/16 00:37 97.4 102 28 129/71 90 Room Air 09/30/16 00:00 104 09/29/16 20:00 96.8 98 23 110/60 95 Room Air 09/29/16 20:00 100 09/29/16 17:09 98.1 71 15 117/66 Nasal Cannula 09/29/16 17:08 Room Air 2.0 30 09/29/16 17:04 Room Air 09/29/16 16:00 97.1 90 23 118/54 100 Room Air 12/21/16 16:00 71 09/29/16 12:35 97.3 67 15 114/67 Room Air 09/29/16 12:35 Room Air 09/29/16 12:00 97.2 81 20 127/67 Room Air Intake and Output 09/29/16 09/30/16 19:00 07:00 Intake Total 480 ml Output Total 3100 ml Balance -3100 ml 480 ml Intake Oral 480 ml Output Hemodialysis UF 3100 ml # Voids 5 # Bowel Movements 4 5 Laboratory Tests 09/29/16 14:44: Erythrocyte Sedimentation Rate 18, Prothrombin Time 14.4H, Prothromb Time International Ratio 1.4H, Iron Level 74, Total Iron Binding Capacity 209L, Percent Iron Saturation 35, Unsaturated Iron Binding 135, Ferritin 711H, Hepatitis A IgM Antibody Negative, Hepatitis B Surface Antigen Negative, Hepatitis B Core IgM Antibody Negative, Hepatitis C Antibody <0.1, HIV (1&2) Antibody Rapid Negative 09/30/16 04:55: White Blood Count 8.9, Red Blood Count 3.17L, Hemoglobin 8.5L, Hematocrit 27.9L , Mean Corpuscular Volume 88, Mean Corpuscular Hemoglobin 26.8L, Mean Corpuscular Hemoglobin Concent 30.5L, Red Cell Distribution Width 19.5H, Platelet Count 153, Mean Platelet Volume 8.0, Neutrophils (%) (Auto) 78.9H, Lymphocytes (%) (Auto) 11.0L, Monocytes (%) (Auto) 8.5, Eosinophils (%) (Auto) 0.6, Basophils (%) (Auto) 0.9, Sodium Level 138, Potassium Level 4.6, Chloride Level 94L, Carbon Dioxide Level 27, Anion Gap 17H, Blood Urea Nitrogen 59#H, Creatinine 4.0H, Estimat Glomerular Filtration Rate 18.5, Glucose Level 78, Hemoglobin A1c 5.7, Uric Acid 3.7, Calcium Level 8.5L, Phosphorus Level 3.0, Magnesium Level 2.0, Total Bilirubin 1.5H, Direct Bilirubin 0.8H, Gamma Glutamyl Transpeptidase 34, Aspartate Amino Transf (AST/SGOT) 22, Alanine Aminotransferase (ALT/SGPT) 6, Alkaline Phosphatase 108, Ammonia 59, Total Creatine Kinase 49, Troponin I < 0.30, C-Reactive Protein, Quantitative 5.3H, Pro-B-Type Natriuretic Peptide > 28552X, Total Protein 6.3L, Albumin 2.9L, Globulin 3.4, Albumin/Globulin Ratio 0.8L, Triglycerides Level 75, Cholesterol Level 113, LDL Cholesterol 72, HDL Cholesterol 26, Cholesterol/HDL Ratio 4.3, Thyroid Stimulating Hormone (TSH) 4.030, Free Thyroxine 0.69L Height (Feet): 5 Height (Inches): 2.00 Weight (Pounds): 180 General Appearance: no apparent distress EENT: normal ENT inspection Neck: normal alignment Cardiovascular: regular rhythm Respiratory/Chest: no respiratory distress Abdomen: no organomegaly Genitourinary/Rectal: normal rectal exam Extremities: normal inspection Edema: 1+ Leg (L), 1+ Leg (R) Edema: mild edema Neurologic: alert Skin: warm/dry Hugh Lopez Sep 30, 2016 11:49
[2016-09-30 12:00] VITALS: BP 124/62
--- NOTE | 2016-09-30 12:10 | Nephrology Progress Note ---
Assessment/Plan Problem List: (1) ESRD (end stage renal disease) on dialysis (2) Chest pain (3) Cocaine abuse (4) Anemia in chronic kidney disease Plan HD in AM start Epogen Watch BP nephrovite daily Subjective Subjective Some SOB Objective Objective Last 24 Hour Vital Signs Date Time Temp Pulse Resp B/P Pulse Ox O2 Delivery O2 Flow Rate FiO2 09/30/16 08:49 96 139/80 09/30/16 08:00 97.7 99 20 132/68 97 Room Air 09/30/16 08:00 90 09/30/16 06:41 97 19 Room Air 09/30/16 04:00 96 09/30/16 04:00 98.2 114 20 139/80 94 Room Air 09/30/16 00:37 97.4 102 28 129/71 90 Room Air 09/30/16 00:00 104 09/29/16 20:00 96.8 98 23 110/60 95 Room Air 09/29/16 20:00 100 09/29/16 17:09 98.1 71 15 117/66 Nasal Cannula 09/29/16 17:08 Room Air 2.0 30 09/29/16 17:04 Room Air 09/29/16 16:00 97.1 90 23 118/54 100 Room Air 09/29/16 16:00 71 09/29/16 12:35 97.3 67 15 114/67 Room Air 09/29/16 12:35 Room Air Intake and Output 09/29/16 09/30/16 19:00 07:00 Intake Total 480 ml Output Total 3100 ml Balance -3100 ml 480 ml Intake Oral 480 ml Output Hemodialysis UF 3100 ml # Voids 5 # Bowel Movements 4 5 Laboratory Tests 09/29/16 14:44: Erythrocyte Sedimentation Rate 18, Prothrombin Time 14.4H, Prothromb Time International Ratio 1.4H, Iron Level 74, Total Iron Binding Capacity 209L, Percent Iron Saturation 35, Unsaturated Iron Binding 135, Ferritin 711H, Hepatitis A IgM Antibody Negative, Hepatitis B Surface Antigen Negative, Hepatitis B Core IgM Antibody Negative, Hepatitis C Antibody <0.1, HIV (1&2) Antibody Rapid Negative 09/30/16 04:55: White Blood Count 8.9, Red Blood Count 3.17L, Hemoglobin 8.5L, Hematocrit 27.9L , Mean Corpuscular Volume 88, Mean Corpuscular Hemoglobin 26.8L, Mean Corpuscular Hemoglobin Concent 30.5L, Red Cell Distribution Width 19.5H, Platelet Count 153, Mean Platelet Volume 8.0, Neutrophils (%) (Auto) 78.9H, Lymphocytes (%) (Auto) 11.0L, Monocytes (%) (Auto) 8.5, Eosinophils (%) (Auto) 0.6, Basophils (%) (Auto) 0.9, Sodium Level 138, Potassium Level 4.6, Chloride Level 94L, Carbon Dioxide Level 27, Anion Gap 17H, Blood Urea Nitrogen 59#H, Creatinine 4.0H, Estimat Glomerular Filtration Rate 18.5, Glucose Level 78, Hemoglobin A1c 5.7, Uric Acid 3.7, Calcium Level 8.5L, Phosphorus Level 3.0, Magnesium Level 2.0, Total Bilirubin 1.5H, Direct Bilirubin 0.8H, Gamma Glutamyl Transpeptidase 34, Aspartate Amino Transf (AST/SGOT) 22, Alanine Aminotransferase (ALT/SGPT) 6, Alkaline Phosphatase 108, Ammonia 59, Total Creatine Kinase 49, Troponin I < 0.30, C-Reactive Protein, Quantitative 5.3H, Pro-B-Type Natriuretic Peptide > [id number], Total Protein 6.3L, Albumin 2.9L, Globulin 3.4, Albumin/Globulin Ratio 0.8L, Triglycerides Level 75, Cholesterol Level 113, LDL Cholesterol 72, HDL Cholesterol 26, Cholesterol/HDL Ratio 4.3, Thyroid Stimulating Hormone (TSH) 4.030, Free Thyroxine 0.69L Height (Feet): 5 Height (Inches): 2.00 Weight (Pounds): 180 Cardiovascular: regular rhythm Respiratory/Chest: rhonchi - bilaterally Extremities: other - no edema HAI BURGESS Sep 30, 2016 12:10
[2016-09-30] MEDS ORDERED: Morphine Sulfate 2mg/ml Inj IM PRN (13:45)
[2016-09-30] MEDS ORDERED: Nephrovite tab ORAL SCH (14:00)
--- NOTE | 2016-09-30 14:42 | Pulmonology Progress Note ---
Assessment/Plan Problems: (1) Acute respiratory failure (2) Anemia in chronic kidney disease (3) ESRD (end stage renal disease) on dialysis (4) Chest pain (5) Fluid overload (6) Cocaine abuse (7) Back pain Assessment/Plan HD as needed check electrolytes pain control Subjective ROS Limited/Unobtainable: Yes Interval Events: feeling better Allergies: Coded Allergies: No Known Allergies (Unverified , 09/28/16) Objective Last 24 Hour Vital Signs Date Time Temp Pulse Resp B/P Pulse Ox O2 Delivery O2 Flow Rate FiO2 09/30/16 12:00 98 09/30/16 12:00 97.7 97 21 124/62 92 Room Air 09/30/16 08:49 96 139/80 09/30/16 08:00 97.7 99 20 132/68 97 Room Air 09/30/16 08:00 90 09/30/16 06:41 97 19 Room Air 21 09/30/16 04:00 96 09/30/16 04:00 98.2 114 20 139/80 94 Room Air 09/30/16 00:37 97.4 102 28 129/71 90 Room Air 09/30/16 00:00 104 09/29/16 20:00 96.8 98 23 110/60 95 Room Air 09/29/16 20:00 100 09/29/16 17:09 98.1 71 15 117/66 Nasal Cannula 09/29/16 17:08 Room Air 2.0 30 09/29/16 17:04 Room Air 09/29/16 16:00 97.1 90 23 118/54 100 Room Air 09/29/16 16:00 71 Intake and Output 09/29/16 09/30/16 19:00 07:00 Intake Total 480 ml Output Total 3100 ml Balance -3100 ml 480 ml Intake Oral 480 ml Output Hemodialysis UF 3100 ml # Voids 5 # Bowel Movements 4 5 General Appearance: WD/WN HEENT: normocephalic, atraumatic Respiratory/Chest: chest wall non-tender, lungs clear Cardiovascular: normal peripheral pulses, normal rate Abdomen: normal bowel sounds, no organomegaly Extremities: no cyanosis 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: director of enrollment II-XII grossly normal Microbiology Date/Time Source Procedure Growth Status 09/28/16 21:20 Back Gram Stain - Final Resulted 09/28/16 21:20 Back Wound Culture - Preliminary NO GROWTH AFTER 24 HOURS Resulted Laboratory Tests 09/29/16 14:44: Erythrocyte Sedimentation Rate 18, Prothrombin Time 14.4H, Prothromb Time International Ratio 1.4H, Iron Level 74, Total Iron Binding Capacity 209L, Percent Iron Saturation 35, Unsaturated Iron Binding 135, Ferritin 711H, Hepatitis A IgM Antibody Negative, Hepatitis B Surface Antigen Negative, Hepatitis B Core IgM Antibody Negative, Hepatitis C Antibody <0.1, HIV (1&2) Antibody Rapid Negative 09/30/16 04:55: White Blood Count 8.9, Red Blood Count 3.17L, Hemoglobin 8.5L, Hematocrit 27.9L , Mean Corpuscular Volume 88, Mean Corpuscular Hemoglobin 26.8L, Mean Corpuscular Hemoglobin Concent 30.5L, Red Cell Distribution Width 19.5H, Platelet Count 153, Mean Platelet Volume 8.0, Neutrophils (%) (Auto) 78.9H, Lymphocytes (%) (Auto) 11.0L, Monocytes (%) (Auto) 8.5, Eosinophils (%) (Auto) 0.6, Basophils (%) (Auto) 0.9, Sodium Level 138, Potassium Level 4.6, Chloride Level 94L, Carbon Dioxide Level 27, Anion Gap 17H, Blood Urea Nitrogen 59#H, Creatinine 4.0H, Estimat Glomerular Filtration Rate 18.5, Glucose Level 78, Hemoglobin A1c 5.7, Uric Acid 3.7, Calcium Level 8.5L, Phosphorus Level 3.0, Magnesium Level 2.0, Total Bilirubin 1.5H, Direct Bilirubin 0.8H, Gamma Glutamyl Transpeptidase 34, Aspartate Amino Transf (AST/SGOT) 22, Alanine Aminotransferase (ALT/SGPT) 6, Alkaline Phosphatase 108, Ammonia 59, Total Creatine Kinase 49, Troponin I < 0.30, C-Reactive Protein, Quantitative 5.3H, Pro-B-Type Natriuretic Peptide > 51561I, Total Protein 6.3L, Albumin 2.9L, Globulin 3.4, Albumin/Globulin Ratio 0.8L, Triglycerides Level 75, Cholesterol Level 113, LDL Cholesterol 72, HDL Cholesterol 26, Cholesterol/HDL Ratio 4.3, Thyroid Stimulating Hormone (TSH) 4.030, Free Thyroxine 0.69L Current Medications Medications (Trade) Dose Ordered Sig/Lillian Route PRN Reason Start Time Stop Time Status Last Admin Dose Admin Acetaminophen (Tylenol) 650 mg Q4H PRN ORAL Fever 09/28/16 19:30 10/28/16 19:29 Albuterol/ Ipratropium (DuoNeb 0.5-3(2.5)mg/3ml) 3 ml EVERY 4 HOURS PRN HHN Shortness of Breath 09/28/16 19:30 10/03/16 19:29 Amlodipine Besylate (Norvasc) 5 mg DAILY ORAL 09/30/16 09:00 10/30/16 08:59 09/30/16 08:49 Dextrose (Dextrose 50%) STAT PRN IV Hypoglycemia 09/28/16 19:30 10/28/16 19:29 Epoetin Joseph (Procrit (for ESRD on dialysis)) 5,000 units TUE-TUE-TUE SUBQ 10/01/16 21:00 10/31/16 20:59 Heparin Sodium (Porcine) (Heparin 5000 units/ml) 5,000 units EVERY 12 HOURS SUBQ 09/28/16 21:00 10/28/16 20:59 09/30/16 08:50 Heparin Sodium (Porcine) (Heparin Sod 1000 units/ml 10ml) 2,000 unit ONCE PRN IV FOR HD 10/01/16 06:00 10/01/16 23:59 Insulin Aspart (NovoLOG) BEFORE MEALS AND HS SUBQ 09/28/16 21:00 10/28/16 20:59 Morphine Sulfate (Morphine Sulfate) 2 mg Q4H PRN IM For Pain 09/30/16 13:45 10/07/16 13:44 UNV Ondansetron HCl (Zofran) 4 mg Q6H PRN IVP Nausea & Vomiting 09/28/16 19:30 10/28/16 19:29 Polyethylene Glycol (Miralax) 17 gm DAILYPRN PRN ORAL Constipation 09/28/16 19:30 10/28/16 19:29 Sodium Chloride (Sodium Chloride 1000ml bag) 1,000 ml @ 500 mls/hr Q2H PRN IVLG sbp<90 during hd 10/01/16 06:00 10/01/16 23:59 Temazepam (Restoril) 15 mg HSPRN PRN ORAL Insomnia 09/28/16 19:30 10/05/16 19:29 Vitamin B Complex/ Vit C/Folic Acid 1 tab 1 tab DAILY ORAL 09/30/16 14:00 10/30/16 13:59 09/30/16 14:19 CARLOS ALBERTO HERMAN Sep 30, 2016 14:42
[2016-09-30 16:00] VITALS: BP 130/80
[2016-09-30] MEDS ORDERED: Morphine Sulfate 2mg/ml Inj IVP PRN ×3 (16:30→20:30)
[2016-09-30 19:00] VITALS: BP 111/70
[2016-09-30] MEDS ORDERED: DuoNeb 0.5-3(2.5)mg/3ml neb HHN PRN ×2 (19:30→21:00)
[2016-09-30] MEDS ORDERED: Miralax 17gm pkt ORAL PRN ×2 (19:30)
[2016-09-30] MEDS ORDERED: NovoLOG Insulin Flexpen SUBQ SCH (21:00)
[2016-09-30] MEDS ORDERED: Heparin 5000 units/ml inj SUBQ SCH (21:00)
[2016-10-01] VITALS: BP 109/64
[2016-10-01 04:00] VITALS: BP 117/68
[2016-10-01] MEDS ORDERED: Heparin Sod 1000 units/ml 10ml IV PRN (06:00)
[2016-10-01] MEDS: NovoLOG Insulin Flexpen SUBQ SCH ×4 (06:30→21:00)
[2016-10-01] MEDS ORDERED: Heparin Sod 1000 units/ml 10ml INJ ONE (07:30)
[2016-10-01 07:57] VITALS: BP 108/58
[2016-10-01] MEDS: Nephrovite tab ORAL SCH (08:22)
[2016-10-01] MEDS: Heparin 5000 units/ml inj SUBQ SCH ×2 (08:22→21:00)
--- NOTE | 2016-10-01 08:28 | General Progress Note ---
Assessment/Plan Assessment/Plan (1) Cocaine abuse (2) Chest pain (3) CHF (4) ESRD on Hemodialysis (5) Lumbar sprain s/p fall Pt will be discontinued off Morphine will be started on Lidoderm patch Q12H on Q12H off to back and tramadol 50mg q4H PRN pain, Xray of L spine will be ordered. Pt was d/w Dr. Rodriguez and he concurred. Subjective Date patient seen: Oct 01, 2016 Time patient seen: 07:30 - am Allergies: Coded Allergies: No Known Allergies (Unverified , 09/28/16) Subjective REVIEW OF SYSTEMS: Denies rash, fever, chills, sweating, dizziness, drowsiness, blurred vision, sore throat, or change in weight. No nausea, vomiting, diarrhea, or blood in the stool or urine. No bowel or bladder incontinence. No dysuria. c/o back pain SUBJECTIVE: Pt was found by nurse on the floor of bathroom after a fall now c/o back pain. He had a h/o mild back pain however due to fall it has been aggravated. Pt was started Morphine yesterday but has not requested it. Objective Last 24 Hour Vital Signs Date Time Temp Pulse Resp B/P Pulse Ox O2 Delivery O2 Flow Rate FiO2 10/01/16 08:22 98 108/58 10/01/16 07:57 97.4 98 19 108/58 98 Room Air 10/01/16 07:03 74 18 Room Air 10/01/16 04:00 97.9 88 18 117/68 97 Room Air 10/01/16 00:00 98.8 96 20 109/64 96 Room Air 09/30/16 20:12 78 19 Room Air 21 09/30/16 19:00 97.2 95 20 111/70 95 Room Air 09/30/16 16:00 98 09/30/16 16:00 97.8 99 19 130/80 97 09/30/16 12:00 98 09/30/16 12:00 97.7 97 21 124/62 92 Room Air 09/30/16 08:49 96 139/80 Intake and Output 09/30/16 10/01/16 19:00 07:00 Intake Total 800 ml 340 ml Balance 800 ml 340 ml Intake Oral 800 ml 340 ml # Voids 3 3 # Bowel Movements 4 3 Laboratory Tests 10/01/16 05:30: Urine Opiates Screen Negative, Urine Barbiturates Screen Negative, Phencyclidine (PCP) Screen Negative, Urine Amphetamines Screen Negative, Urine Benzodiazepines Screen Negative, Urine Cocaine Screen PositiveH, Urine Marijuana (THC) Screen Negative Height (Feet): 5 Height (Inches): 2.00 Weight (Pounds): 180 Objective PHYSICAL EXAMINATION: GENERAL: Alert, awake, and oriented. HEENT: PERRLA. NECK: Range of motion is full in all directions. No tenderness to paracervical muscles. No adenopathy. LUNGS: Decreased breath sounds bilaterally. HEART: S1 and S2, regular. ABDOMEN: Obese. BACK: Range of motion is decreased in flexion and extension with tenderness to paraspinous and trapezius muscles. EXTREMITIES: No cyanosis, no clubbing, and no edema. NEURO: No changes. ARRON EDWARD Oct 01, 2016 08:28
[2016-10-01] MEDS ORDERED: Nephrovite tab ORAL SCH (09:00)
--- NOTE | 2016-10-01 09:35 | Diagnostic Imaging Report ---
Indication: Abnormal renal function tests and liver function tests Technique: Shafer-scale and duplex images of the upper abdomen were obtained Comparison: None Findings: There is trace ascites fluid. Gallbladder is contracted. There is apparent no bladder wall thickening, although suspect this is an artifact of under distention. No gross gallstones demonstrated.. Sonographic Wilhelm's sign is negative. Common bile duct measures 4 mm in diameter. No intrahepatic biliary ductal dilatation. Liver is somewhat enlarged, demonstrates normal echogenicity, no focal abnormality. Portal vein and hepatic veins are patent. The hepatic veins and inferior vena cava are distended. Pancreas is unremarkable. Spleen is unremarkable. Left kidney measures 7.5 cm in length. Right kidney measures 10.5 cm length. Both kidneys demonstrate normal echogenicity. There is no hydronephrosis. There are cysts within the right kidney. A calcification is seen within the left kidney. Abdominal aorta is partially obscured by bowel gas, visualized portions are non-aneurysmal. Impression: Ascites Contracted gallbladder, limiting visualization. No gross gallstones. Apparent gallbladder wall thickening is probably artifact of under distention Negative for dilated ducts Atrophic left kidney is Distended hepatic veins and inferior vena cava, suggestive of central venous hypertension Calcification within the left kidney, may be calyceal or parenchymal. No evidence of renal obstruction on either side Incidental finding right renal cysts
[2016-10-01 11:13] VITALS: BP 110/66
--- NOTE | 2016-10-01 11:32 | General Progress Note ---
Assessment/Plan Problem List: (1) Cocaine abuse ICD Codes: F14.10 - Cocaine abuse, uncomplicated SNOMED: 35682306, [id number] (2) Chest pain ICD Codes: R07.9 - Chest pain, unspecified SNOMED: 64307367, [id number] Qualifiers: Qualified Codes: R07.9 - Chest pain, unspecified Status: progressing Assessment/Plan s/p fall vre afebrile vitals improving r/o acs Subjective ROS Limited/Unobtainable: Yes Allergies: Coded Allergies: No Known Allergies (Unverified , 09/28/16) Objective Last 24 Hour Vital Signs Date Time Temp Pulse Resp B/P Pulse Ox O2 Delivery O2 Flow Rate FiO2 10/01/16 11:13 97.6 96 20 110/66 97 Room Air 10/01/16 08:22 98 108/58 10/01/16 07:57 97.4 98 19 108/58 98 Room Air 10/01/16 07:03 74 18 Room Air 21 10/01/16 04:00 97.9 88 18 117/68 97 Room Air 10/01/16 00:00 98.8 96 20 109/64 96 Room Air 09/30/16 20:12 78 19 Room Air 21 09/30/16 19:00 97.2 95 20 111/70 95 Room Air 09/30/16 16:00 98 09/30/16 16:00 97.8 99 19 130/80 97 09/30/16 12:00 98 09/30/16 12:00 97.7 97 21 124/62 92 Room Air Intake and Output 09/30/16 10/01/16 19:00 07:00 Intake Total 800 ml 340 ml Balance 800 ml 340 ml Intake Oral 800 ml 340 ml # Voids 3 3 # Bowel Movements 4 3 Laboratory Tests 10/01/16 05:30: Urine Opiates Screen Negative, Urine Barbiturates Screen Negative, Phencyclidine (PCP) Screen Negative, Urine Amphetamines Screen Negative, Urine Benzodiazepines Screen Negative, Urine Cocaine Screen PositiveH, Urine Marijuana (THC) Screen Negative Height (Feet): 5 Height (Inches): 2.00 Weight (Pounds): 180 EENT: PERRL/EOMI Neck: supple Cardiovascular: normal rate Respiratory/Chest: lungs clear Abdomen: soft Liu Elizondo MD Oct 01, 2016 11:32
[2016-10-01 12:30] VITALS: BP 103/56
--- NOTE | 2016-10-01 13:16 | General Progress Note ---
Assessment/Plan Assessment/Plan ASSESSMENT: 1. Anemia secondary to end-stage renal disease. Ferritin is 711. On epogen 2. Decreased hemoglobin and hematocrit, rule out gastrointestinal bleed. 3. Thrombocytopenia potentially secondary to underlying infection. hep and hiv negative 4. Coagulopathy INR is 1.4 5. Diabetes mellitus. 6. End-stage renal disease on hemodialysis. 7. Cocaine use history. RECOMMENDATIONS: 1. Monitor counts. 2. Transfuse if hemoglobin less than 7.5. 3. Started on epogen 4. Does not need iron 5. Ultrasound of the abdomen reviewed 6. Peripheral smear pending. 7. Anemia workup has been reviewed 8. We will followup on Nephrology, Pulmonary, and Cardiology recommendations 9. DVT prophylaxis with heparin. 10. GI prophylaxis as needed. 11. Pain control. 12. Discussed with staff. Thank you, Hugh Lopez MD Subjective Allergies: Coded Allergies: No Known Allergies (Unverified , 09/28/16) Subjective stable, monitoring h/h Objective Last 24 Hour Vital Signs Date Time Temp Pulse Resp B/P Pulse Ox O2 Delivery O2 Flow Rate FiO2 10/01/16 11:13 97.6 96 20 110/66 97 Room Air 10/01/16 08:22 98 108/58 10/01/16 07:57 97.4 98 19 108/58 98 Room Air 10/01/16 07:03 74 18 Room Air 10/01/16 04:00 97.9 88 18 117/68 97 Room Air 10/01/16 00:00 98.8 96 20 109/64 96 Room Air 09/30/16 20:12 78 19 Room Air 09/30/16 19:00 97.2 95 20 111/70 95 Room Air 09/30/16 16:00 98 09/30/16 16:00 97.8 99 19 130/80 97 Intake and Output 09/30/16 10/01/16 19:00 07:00 Intake Total 800 ml 340 ml Balance 800 ml 340 ml Intake Oral 800 ml 340 ml # Voids 3 3 # Bowel Movements 4 3 Laboratory Tests 10/01/16 05:30: Urine Opiates Screen Negative, Urine Barbiturates Screen Negative, Phencyclidine (PCP) Screen Negative, Urine Amphetamines Screen Negative, Urine Benzodiazepines Screen Negative, Urine Cocaine Screen PositiveH, Urine Marijuana (THC) Screen Negative Height (Feet): 5 Height (Inches): 2.00 Weight (Pounds): 180 Hugh Lopez Oct 01, 2016 13:16
--- NOTE | 2016-10-01 13:23 | Nephrology Progress Note ---
Assessment/Plan Problem List: (1) ESRD (end stage renal disease) on dialysis (2) Chest pain (3) Cocaine abuse (4) Anemia in chronic kidney disease Plan HDtoday cont Epogen Watch BP Nephrovite daily Subjective Subjective In NAD Objective Objective Last 24 Hour Vital Signs Date Time Temp Pulse Resp B/P Pulse Ox O2 Delivery O2 Flow Rate FiO2 10/01/16 11:13 97.6 96 20 110/66 97 Room Air 10/01/16 08:22 98 108/58 10/01/16 07:57 97.4 98 19 108/58 98 Room Air 10/01/16 07:03 74 18 Room Air 21 10/01/16 04:00 97.9 88 18 117/68 97 Room Air 10/01/16 00:00 98.8 96 20 109/64 96 Room Air 09/30/16 20:12 78 19 Room Air 21 09/30/16 19:00 97.2 95 20 111/70 95 Room Air 09/30/16 16:00 98 09/30/16 16:00 97.8 99 19 130/80 97 Intake and Output 09/30/16 10/01/16 19:00 07:00 Intake Total 800 ml 340 ml Balance 800 ml 340 ml Intake Oral 800 ml 340 ml # Voids 3 3 # Bowel Movements 4 3 Laboratory Tests 10/01/16 05:30: Urine Opiates Screen Negative, Urine Barbiturates Screen Negative, Phencyclidine (PCP) Screen Negative, Urine Amphetamines Screen Negative, Urine Benzodiazepines Screen Negative, Urine Cocaine Screen PositiveH, Urine Marijuana (THC) Screen Negative Height (Feet): 5 Height (Inches): 2.00 Weight (Pounds): 180 Cardiovascular: normal rate Respiratory/Chest: rhonchi - bilaterally Extremities: trace edema HAI BURGESS Oct 01, 2016 13:23
[2016-10-01 16:00] VITALS: BP 109/59
--- NOTE | 2016-10-01 17:17 | Infectious Diseases Prog Note ---
Assessment/Plan Problems: (1) Colonization with VRE (vancomycin-resistant enterococcus) Assessment & Plan: keep in contact isolation (2) ESRD (end stage renal disease) on dialysis Assessment & Plan: continue HD as per renal. (3) Cocaine abuse Assessment & Plan: recommend counseling and rehab (4) Chest pain Assessment & Plan: evaluation as per primary (5) Anemia in chronic kidney disease Assessment & Plan: stable, monitor H/H transfuse as needed Subjective Allergies: Coded Allergies: No Known Allergies (Unverified , 09/28/16) Objective Vital Signs Last 24 Hour Vital Signs Date Time Temp Pulse Resp B/P Pulse Ox O2 Delivery O2 Flow Rate FiO2 10/01/16 16:45 Room Air 2.0 21 10/01/16 12:30 Room Air 2.0 21 10/01/16 12:30 97.3 93 15 103/56 10/01/16 11:13 97.6 96 20 110/66 97 Room Air 10/01/16 08:22 98 108/58 10/01/16 07:57 97.4 98 19 108/58 98 Room Air 10/01/16 07:03 74 18 Room Air 21 10/01/16 04:00 97.9 88 18 117/68 97 Room Air 10/01/16 00:00 98.8 96 20 109/64 96 Room Air 09/30/16 20:12 78 19 Room Air 21 09/30/16 19:00 97.2 95 20 111/70 95 Room Air Height (Feet): 5 Height (Inches): 2.00 Weight (Pounds): 180 Microbiology Date/Time Source Procedure Growth Status 09/28/16 20:49 Nasal Nares MRSA Culture - Final NO METHICILLIN RESISTANT STAPH AUREUS... Complete 09/28/16 21:20 Back Gram Stain - Final Resulted 09/28/16 21:20 Wound Culture - Preliminary Gram Negative Bacillus 1 Resulted 09/28/16 20:49 Rectum VRE Culture - Final Enterococcus Faecalis - Vre Complete Laboratory Tests Test 10/01/16 05:30 Urine Opiates Screen Negative (NEGATIVE) Urine Barbiturates Screen Negative (NEGATIVE) Phencyclidine (PCP) Screen Negative (NEGATIVE) Urine Amphetamines Screen Negative (NEGATIVE) Urine Benzodiazepines Screen Negative (NEGATIVE) Urine Cocaine Screen Positive (NEGATIVE) H Urine Marijuana (THC) Screen Negative (NEGATIVE) Current Medications Medications (Trade) Dose Ordered Sig/Lillian Route PRN Reason Start Time Stop Time Status Last Admin Dose Admin Acetaminophen (Tylenol) 650 mg Q4H PRN ORAL Fever 09/30/16 19:30 10/30/16 19:29 Albuterol/ Ipratropium (DuoNeb 0.5-3(2.5)mg/3ml) 3 ml Q4H PRN HHN Shortness of Breath 09/30/16 21:00 10/05/16 20:59 Amlodipine Besylate (Norvasc) 5 mg DAILY ORAL 10/01/16 09:00 10/31/16 08:59 Dextrose (Dextrose 50%) STAT PRN IV Hypoglycemia 09/30/16 19:30 10/30/16 19:29 Epoetin Joseph (Procrit (for ESRD on dialysis)) 5,000 units MON-TUE-TUE SUBQ 10/01/16 21:00 10/31/16 20:59 Heparin Sodium (Porcine) (Heparin 5000 units/ml) 5,000 units EVERY 12 HOURS SUBQ 09/30/16 21:00 10/30/16 20:59 Insulin Aspart (NovoLOG) BEFORE MEALS AND HS SUBQ 09/30/16 21:00 10/30/16 20:59 Lidocaine (Lidoderm 5% PATCH) 1 patch DAILY TDERMAL 10/01/16 09:00 10/31/16 08:59 10/01/16 08:34 Ondansetron HCl (Zofran) 4 mg Q6H PRN IVP Nausea & Vomiting 09/30/16 19:30 10/30/16 19:29 Polyethylene Glycol (Miralax) 17 gm DAILYPRN PRN ORAL Constipation 09/30/16 19:30 10/30/16 19:29 Sodium Chloride (Sodium Chloride 1000ml bag) 1,000 ml @ 500 mls/hr Q2H PRN IVLG sbp<90 during hd 10/01/16 06:00 10/31/16 05:59 Temazepam (Restoril) 15 mg HSPRN PRN ORAL Insomnia 09/30/16 19:30 10/07/16 19:29 Tramadol HCl (Ultram) 50 mg Q4H PRN ORAL moderate pain 10/01/16 08:15 10/08/16 08:14 Vitamin B Complex/ Vit C/Folic Acid (Nephrovite) 1 tab DAILY ORAL 12/23/16 09:00 10/31/16 08:59 Ivania Bhardwaj M.D. Oct 01, 2016 17:17
--- NOTE | 2016-10-01 17:19 | Pulmonology Progress Note ---
Assessment/Plan Problems: (1) Acute respiratory failure (2) Anemia in chronic kidney disease (3) ESRD (end stage renal disease) on dialysis (4) Chest pain (5) Fluid overload (6) Cocaine abuse (7) Back pain Assessment/Plan HD as needed check electrolytes pain control dc planning might need placement Subjective ROS Limited/Unobtainable: No Interval Events: back pain Allergies: Coded Allergies: No Known Allergies (Unverified , 09/28/16) Objective Last 24 Hour Vital Signs Date Time Temp Pulse Resp B/P Pulse Ox O2 Delivery O2 Flow Rate FiO2 10/01/16 16:45 Room Air 2.0 21 10/01/16 12:30 Room Air 2.0 21 10/01/16 12:30 97.3 93 15 103/56 10/01/16 11:13 97.6 96 20 110/66 97 Room Air 10/01/16 08:22 98 108/58 10/01/16 07:57 97.4 98 19 108/58 98 Room Air 10/01/16 07:03 74 18 Room Air 21 10/01/16 04:00 97.9 88 18 117/68 97 Room Air 10/01/16 00:00 98.8 96 20 109/64 96 Room Air 09/30/16 20:12 78 19 Room Air 21 09/30/16 19:00 97.2 95 20 111/70 95 Room Air Intake and Output 09/30/16 10/01/16 19:00 07:00 Intake Total 800 ml 340 ml Balance 800 ml 340 ml Intake Oral 800 ml 340 ml # Voids 3 3 # Bowel Movements 4 3 General Appearance: WD/WN HEENT: normocephalic, atraumatic Respiratory/Chest: chest wall non-tender, lungs clear Cardiovascular: normal peripheral pulses, normal rate Abdomen: normal bowel sounds, soft, non tender Genitourinary: normal external genitalia Extremities: no cyanosis Skin: no rash 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 Complete 09/28/16 21:20 Back Gram Stain - Final Resulted 09/28/16 21:20 Wound Culture - Preliminary Gram Negative Bacillus 1 Resulted 09/28/16 20:49 Rectum VRE Culture - Final Enterococcus Faecalis - Vre Complete Laboratory Tests 10/01/16 05:30: Urine Opiates Screen Negative, Urine Barbiturates Screen Negative, Phencyclidine (PCP) Screen Negative, Urine Amphetamines Screen Negative, Urine Benzodiazepines Screen Negative, Urine Cocaine Screen PositiveH, Urine Marijuana (THC) Screen Negative Current Medications Medications (Trade) Dose Ordered Sig/Lillian Route PRN Reason Start Time Stop Time Status Last Admin Dose Admin Acetaminophen (Tylenol) 650 mg Q4H PRN ORAL Fever 09/30/16 19:30 10/30/16 19:29 Albuterol/ Ipratropium (DuoNeb 0.5-3(2.5)mg/3ml) 3 ml Q4H PRN HHN Shortness of Breath 09/30/16 21:00 10/05/16 20:59 Amlodipine Besylate (Norvasc) 5 mg DAILY ORAL 10/01/16 09:00 10/31/16 08:59 Dextrose (Dextrose 50%) STAT PRN IV Hypoglycemia 09/30/16 19:30 10/30/16 19:29 Epoetin Joseph (Procrit (for ESRD on dialysis)) 5,000 units MON-WED-FRI SUBQ 10/01/16 21:00 10/31/16 20:59 Heparin Sodium (Porcine) (Heparin 5000 units/ml) 5,000 units EVERY 12 HOURS SUBQ 09/30/16 21:00 10/30/16 20:59 Insulin Aspart (NovoLOG) BEFORE MEALS AND HS SUBQ 09/30/16 21:00 10/30/16 20:59 Lidocaine (Lidoderm 5% PATCH) 1 patch DAILY TDERMAL 10/01/16 09:00 10/31/16 08:59 10/01/16 08:34 Ondansetron HCl (Zofran) 4 mg Q6H PRN IVP Nausea & Vomiting 09/30/16 19:30 10/30/16 19:29 Polyethylene Glycol (Miralax) 17 gm DAILYPRN PRN ORAL Constipation 09/30/16 19:30 10/30/16 19:29 Sodium Chloride (Sodium Chloride 1000ml bag) 1,000 ml @ 500 mls/hr Q2H PRN IVLG sbp<90 during hd 10/01/16 06:00 10/31/16 05:59 Temazepam (Restoril) 15 mg HSPRN PRN ORAL Insomnia 09/30/16 19:30 10/07/16 19:29 Tramadol HCl (Ultram) 50 mg Q4H PRN ORAL moderate pain 10/01/16 08:15 10/08/16 08:14 Vitamin B Complex/ Vit C/Folic Acid (Nephrovite) 1 tab DAILY ORAL 10/01/16 09:00 10/31/16 08:59 CARLOS ALBERTO HERMAN Oct 01, 2016 17:19
[2016-10-01] MEDS ORDERED: Epogen (for ESRD on dialysis) SUBQ SCH ×2 (21:00)
[2016-10-01] MEDS: Epogen (for ESRD on dialysis) SUBQ SCH (21:41)
[2016-10-02] VITALS: BP 146/60
--- NOTE | 2016-10-02 00:57 | Consultation ---
DATE OF CONSULTATION: CONSULTING PHYSICIAN: Ivania Bhardwaj M.D. REQUESTING PHYSICIAN: Gorge Richard D.O. REASON FOR CONSULTATION: Vancomycin-resistant enterococcus colonization in the rectum. Recommendation for antibiotics therapy. HISTORY OF PRESENT ILLNESS: The patient is a 60-year-old male with end-stage renal disease, diabetes, and hypertension, who presented to [facility] for sudden onset of chest pain. The patient was smoking cocaine before his chest pain onset. He also developed shortness of breath. Denied any cough or recent upper respiratory infection. No fever or chills. No abdominal pain. In ED, his urine screening was positive for cocaine. The patient was admitted to the hospital to rule out myocardial infarction and to be evaluated by Cardiology. He had workup including rectal swab screening and culture, which grew vancomycin-resistant enterococcus, so I was consulted by the primary provider for antibiotics recommendation and further management. PAST MEDICAL HISTORY: Significant for end-stage renal disease, diabetes, hypertension, and drug abuse. PAST SURGICAL HISTORY: Unknown. MEDICATIONS: He is on Procrit, vitamin D, Norvasc, lidocaine, tramadol, heparin, insulin, aspart, DuoNeb, Zofran, MiraLAX, Restoril, Tylenol, and dextrose. ALLERGIES: He has no known drug allergy. SOCIAL HISTORY: The patient use drugs on and off mainly cocaine and smoke tobacco. Drinks alcohol occasionally. FAMILY HISTORY: Not contributory. REVIEW OF SYSTEMS: A 12-point of system reviewed were all negative apart from the one I mentioned above in my History and Physical. PHYSICAL EXAMINATION: VITAL SIGNS: Temperature 97.3 degrees, pulse 93, respirations 15, blood pressure 103/56, and pulse oximetry 97% on room air. GENERAL: The patient is an middle-aged male laying in bed, awake, alert, oriented, getting hemodialysis, and not in distress. HEENT: Normocephalic and atraumatic. Pupils reactive to light equally. Moist oral mucosa. No exudate or thrush. NECK: Supple. No lymphadenopathy. CARDIOVASCULAR: Regular rate and rhythm. No murmur. No gallop. LUNGS: Clear bilaterally. No wheezing. No rhonchi. ABDOMEN: Soft, nontender, and nondistended. Positive bowel sounds. No hepatosplenomegaly. No ascites. EXTREMITIES: No edema. No cyanosis. LABORATORY DATA: White count 8.9, hemoglobin 8.5, hematocrit 27.9, and platelet count of 153,000. BUN of 59 and creatinine of 4. Toxicology screening positive for cocaine. Serology screening negative for hepatitis A, B, and C and negative for HIV. MICROBIOLOGY: His wound of the skin culture grew gram-negative bacillus. His rectal screening grew Enterococcus faecalis, vancomycin-resistant. IMAGING: Chest x-ray on admission showed cardiomegaly with evidence of congestive heart failure. Abdominal ultrasound showed contracted gallbladder and limiting visualization. No gross gallstones. Apparent gallbladder wall thickening is probably artifact or under distention. Negative for dilated ducts and atrophic left kidney. ASSESSMENT AND PLAN: 1. Vancomycin-resistant enterococcus colonization. Recommend no antibiotics treatment. Keep in contact isolation. 2. End-stage renal disease, on hemodialysis. Renal is following. 3. Cocaine abuse. Recommend counseling and rehabilitation. 4. Chest pain, suspect due to cocaine abuse. Management as per Cardiology. 5. Skin wounds with culture growing gram-negative rods. No need for antibiotic therapy. Continue local wound care as per wound care service. 6. Anemia and chronic kidney disease. Monitor hemoglobin and hematocrit. Transfuse as needed. Ivania Bhardwaj M.D. DR: YAZMIN JOB#: [id number] CC:
[2016-10-02 04:00] VITALS: BP 135/70
[2016-10-02] MEDS: NovoLOG Insulin Flexpen SUBQ SCH ×4 (06:30→20:27)
--- NOTE | 2016-10-02 07:41 | General Progress Note ---
Assessment/Plan Assessment/Plan ASSESSMENT: 1. Anemia secondary to end-stage renal disease. Ferritin is 711. On epogen 2. Decreased hemoglobin and hematocrit, rule out gastrointestinal bleed. 3. Thrombocytopenia potentially secondary to underlying infection. hep and hiv negative 4. Coagulopathy INR is 1.4 5. Diabetes mellitus. 6. End-stage renal disease on hemodialysis. 7. Cocaine use history. RECOMMENDATIONS: 1. Monitor counts. 2. Transfuse if hemoglobin less than 7.5. 3. Continue epogen 4. Does not need iron 5. Ultrasound of the abdomen reviewed 6. Peripheral smear shows no abnmls 7. Anemia workup has been reviewed 8. Followup on Nephrology, Pulmonary, and Cardiology recommendations 9. DVT prophylaxis with heparin sq 10. GI prophylaxis as needed. 11. Pain control. 12. Discussed with staff. Thank you, Hugh Lopez MD Subjective Constitutional: Reports: no symptoms HEENT: Reports: no symptoms Cardiovascular: Reports: no symptoms Respiratory: Reports: no symptoms Gastrointestinal/Abdominal: Reports: poor appetite Genitourinary: Reports: no symptoms 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: Reports: no symptoms Endocrine: Reports: no symptoms Hematologic/Lymphatic: Reports: anemia Allergies: Coded Allergies: No Known Allergies (Unverified , 09/28/16) Subjective stable, no hematochenzia, no bleeding Objective Last 24 Hour Vital Signs Date Time Temp Pulse Resp B/P Pulse Ox O2 Delivery O2 Flow Rate FiO2 10/02/16 04:00 96.6 90 20 135/70 94 Room Air 10/02/16 00:00 97.5 85 20 146/60 94 Room Air 10/01/16 18:43 88 18 Room Air 21 10/01/16 16:45 Room Air 2.0 21 10/01/16 16:00 97.0 96 18 109/59 94 Room Air 10/01/16 12:30 Room Air 2.0 21 10/01/16 12:30 97.3 93 15 103/56 10/01/16 11:13 97.6 96 20 110/66 97 Room Air 10/01/16 08:22 98 108/58 10/01/16 07:57 97.4 98 19 108/58 98 Room Air Intake and Output 10/01/16 10/02/16 19:00 07:00 Intake Total 240 ml 240 ml Output Total 2150 ml Balance -1910 ml 240 ml Intake Oral 240 ml 240 ml Output Urine Total 50 ml Hemodialysis UF 2100 ml # Voids 3 # Bowel Movements 3 7 Laboratory Tests 10/01/16 20:25: Stool Occult Blood [Pending] Height (Feet): 5 Height (Inches): 2.00 Weight (Pounds): 180 General Appearance: no apparent distress EENT: normal ENT inspection Neck: supple Cardiovascular: normal rate Respiratory/Chest: lungs clear Abdomen: soft Extremities: non-tender Edema: 1+ Leg (L), 1+ Leg (R) Edema: mild edema Neurologic: alert Skin: warm/dry Hugh Lopez Oct 02, 2016 07:41
[2016-10-02 08:00] VITALS: BP 104/57
[2016-10-02] MEDS: Nephrovite tab ORAL SCH (08:28)
[2016-10-02] MEDS: traMADol 50mg tab ORAL PRN (08:29)
[2016-10-02] MEDS: Heparin 5000 units/ml inj SUBQ SCH (08:30)
--- NOTE | 2016-10-02 10:28 | General Progress Note ---
Assessment/Plan Status: stable Assessment/Plan (1) ESRD (end stage renal disease) on dialysis (2) Chest pain (3) Cocaine abuse (4) Anemia in chronic kidney disease (5) ? DVT right UE Plan: Last HD 10/01 Next HD Vebnous duplex right UE Subjective ROS Limited/Unobtainable: No Constitutional: Reports: malaise Allergies: Coded Allergies: No Known Allergies (Unverified , 09/28/16) Objective Last 24 Hour Vital Signs Date Time Temp Pulse Resp B/P Pulse Ox O2 Delivery O2 Flow Rate FiO2 10/02/16 09:50 96.6 10/02/16 08:31 93 104/57 10/02/16 08:00 97.2 93 20 104/57 96 Room Air 10/02/16 04:00 96.6 90 20 135/70 94 Room Air 10/02/16 00:00 97.5 85 20 146/60 94 Room Air 10/01/16 18:43 88 18 Room Air 21 10/01/16 16:45 Room Air 2.0 21 10/01/16 16:00 97.0 96 18 109/59 94 Room Air 10/01/16 12:30 Room Air 2.0 21 10/01/16 12:30 97.3 93 15 103/56 10/01/16 11:13 97.6 96 20 110/66 97 Room Air Intake and Output 10/01/16 10/02/16 19:00 07:00 Intake Total 240 ml 240 ml Output Total 2150 ml Balance -1910 ml 240 ml Intake Oral 240 ml 240 ml Output Urine Total 50 ml Hemodialysis UF 2100 ml # Voids 3 # Bowel Movements 3 7 Laboratory Tests 10/01/16 20:25: Stool Occult Blood [Pending] Height (Feet): 5 Height (Inches): 2.00 Weight (Pounds): 180 General Appearance: no apparent distress Respiratory/Chest: decreased breath sounds Abdomen: soft Extremities: other - RUE swollen KALEY RIOS Oct 02, 2016 10:28
[2016-10-02 12:00] VITALS: BP 106/58
--- NOTE | 2016-10-02 12:58 | Pulmonology Progress Note ---
Assessment/Plan Assessment/Plan ASSESSMENT chest pain ( after cocaine abuse) 2 to vasospasm cardiomyopathy moderate pulmonary HTN severe MR severe TR acute anemia r/o GI bleeding ESRD, on HD HTN DM cocaine abuse PLAN OF CARE MS floor serial troponin negative, cardio follows, ruled out for ACS CP after cocaine abuse due to vasospasm -as per cardio, ECHO with EF 30-35%, severe MR and TR, RVSP of 50 c/w moderate pulmonary HTN BP management with CCB ,avoid BB due to cocaine use BS management with SS of insulin HH dropped ,will transfuse 2 u PRBC recommend GI eval - per PMD discretion heme follows stool OB x 2 HD as per nephro mortgage counselor on avoidance of cocaine DVT, GI prophylaxis case discussed and evaluated by supervising physician Subjective Allergies: Coded Allergies: No Known Allergies (Unverified , 09/28/16) Subjective HH down-4.9/15.9 afebrile, no leucocytosis on RA no signs of respiratory distress denies dizziness, blackout no SOB, no chest pain Objective Last 24 Hour Vital Signs Date Time Temp Pulse Resp B/P Pulse Ox O2 Delivery O2 Flow Rate FiO2 10/02/16 09:50 96.6 10/02/16 08:31 93 104/57 10/02/16 08:00 97.2 93 20 104/57 96 Room Air 10/02/16 07:38 92 20 Room Air 10/02/16 04:00 96.6 90 20 135/70 94 Room Air 10/02/16 00:00 97.5 85 20 146/60 94 Room Air 10/01/16 18:43 88 18 Room Air 21 10/01/16 16:45 Room Air 2.0 21 10/01/16 16:00 97.0 96 18 109/59 94 Room Air Intake and Output 10/01/16 10/02/16 19:00 07:00 Intake Total 240 ml 240 ml Output Total 2150 ml Balance -1910 ml 240 ml Intake Oral 240 ml 240 ml Output Urine Total 50 ml Hemodialysis UF 2100 ml # Voids 3 # Bowel Movements 3 7 General Appearance: WD/WN, no acute distress HEENT: normocephalic, atraumatic, anicteric Respiratory/Chest: chest wall non-tender, lungs clear - with moderate air entry Cardiovascular: normal rate, regular rhythm Abdomen: normal bowel sounds, soft, non tender Extremities: no edema, pedal pulses normal 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: no motor/sensory deficits, alert, oriented x 3, responsive Musculoskeletal: normal muscle bulk Laboratory Tests 10/01/16 20:25: Stool Occult Blood [Pending] Current Medications Medications (Trade) Dose Ordered Sig/Lillian Route PRN Reason Start Time Stop Time Status Last Admin Dose Admin Acetaminophen (Tylenol) 650 mg Q4H PRN ORAL Fever 09/30/16 19:30 10/30/16 19:29 Albuterol/ Ipratropium (DuoNeb 0.5-3(2.5)mg/3ml) 3 ml Q4H PRN HHN Shortness of Breath 09/30/16 21:00 10/05/16 20:59 Amlodipine Besylate (Norvasc) 5 mg DAILY ORAL 10/01/16 09:00 10/31/16 08:59 Dextrose (Dextrose 50%) STAT PRN IV Hypoglycemia 09/30/16 19:30 10/30/16 19:29 Epoetin Joseph (Procrit (for ESRD on dialysis)) 5,000 units MON-TUE-TUE SUBQ 10/01/16 21:00 10/31/16 20:59 10/01/16 21:41 Heparin Sodium (Porcine) (Heparin 5000 units/ml) 5,000 units EVERY 12 HOURS SUBQ 09/30/16 21:00 10/30/16 20:59 Insulin Aspart (NovoLOG) BEFORE MEALS AND HS SUBQ 09/30/16 21:00 10/30/16 20:59 Lidocaine (Lidoderm 5% PATCH) 1 patch DAILY TDERMAL 10/01/16 09:00 10/31/16 08:59 10/02/16 08:28 Ondansetron HCl (Zofran) 4 mg Q6H PRN IVP Nausea & Vomiting 09/30/16 19:30 10/30/16 19:29 Pantoprazole (Protonix) 40 mg EVERY 12 HOURS ORAL 10/01/16 21:00 10/31/16 20:59 10/02/16 08:30 Polyethylene Glycol (Miralax) 17 gm DAILYPRN PRN ORAL Constipation 09/30/16 19:30 10/30/16 19:29 10/02/16 08:28 Sodium Chloride (Sodium Chloride 1000ml bag) 1,000 ml @ 500 mls/hr Q2H PRN IVLG sbp<90 during hd 10/01/16 06:00 10/31/16 05:59 Temazepam (Restoril) 15 mg HSPRN PRN ORAL Insomnia 09/30/16 19:30 10/07/16 19:29 Tramadol HCl (Ultram) 50 mg Q4H PRN ORAL moderate pain 10/01/16 08:15 10/08/16 08:14 10/02/16 08:29 Vitamin B Complex/ Vit C/Folic Acid (Nephrovite) 1 tab DAILY ORAL 10/01/16 09:00 10/31/16 08:59 10/02/16 08:28 Jevon ([facility])Kate NP Oct 02, 2016 12:58
[2016-10-02 13:15] LABS: MEAN CORPUSCULAR HGB CONC 30.6 G/DL (32.0-36.0); MEAN CORPUSCULAR VOLUME 88 FL (80-99); MEAN PLATELET VOLUME 6.1 FL (6.5-10.1); PLATELET COUNT 239 K/UL (150-450); RED BLOOD COUNT 1.81 M/UL (4.70-6.10); RED CELL DISTRIBUTION WIDTH 19.6 % (11.6-14.8); WHITE BLOOD COUNT 8.4 K/UL (4.8-10.8)
--- NOTE | 2016-10-02 13:55 | General Progress Note ---
Assessment/Plan Problem List: (1) Cocaine abuse ICD Codes: F14.10 - Cocaine abuse, uncomplicated SNOMED: 68380337, [id number] (2) Chest pain ICD Codes: R07.9 - Chest pain, unspecified SNOMED: 77497447, [id number] Qualifiers: Qualified Codes: R07.9 - Chest pain, unspecified Status: progressing Assessment/Plan s/p fall pain is improviing neg trop dc planning Subjective ROS Limited/Unobtainable: Yes Constitutional: Reports: no symptoms Allergies: Coded Allergies: No Known Allergies (Unverified , 09/28/16) Objective Last 24 Hour Vital Signs Date Time Temp Pulse Resp B/P Pulse Ox O2 Delivery O2 Flow Rate FiO2 10/02/16 09:50 96.6 10/02/16 08:31 93 104/57 10/02/16 08:00 97.2 93 20 104/57 96 Room Air 10/02/16 07:38 92 20 Room Air 10/02/16 04:00 96.6 90 20 135/70 94 Room Air 10/02/16 00:00 97.5 85 20 146/60 94 Room Air 10/01/16 18:43 88 18 Room Air 21 10/01/16 16:45 Room Air 2.0 21 10/01/16 16:00 97.0 96 18 109/59 94 Room Air Intake and Output 10/01/16 10/02/16 19:00 07:00 Intake Total 240 ml 240 ml Output Total 2150 ml Balance -1910 ml 240 ml Intake Oral 240 ml 240 ml Output Urine Total 50 ml Hemodialysis UF 2100 ml # Voids 3 # Bowel Movements 3 7 Laboratory Tests 10/01/16 20:25: Stool Occult Blood [Pending] 10/02/16 13:05: White Blood Count 8.4, Red Blood Count 1.81L, Hemoglobin 4.9*L, Hematocrit 15.9L , Mean Corpuscular Volume 88, Mean Corpuscular Hemoglobin 27.0, Mean Corpuscular Hemoglobin Concent 30.6L, Red Cell Distribution Width 19.6H, Platelet Count 239, Mean Platelet Volume 6.1L, Neutrophils (%) (Auto) , Lymphocytes (%) (Auto) , Monocytes (%) (Auto) , Eosinophils (%) (Auto) , Basophils (%) (Auto) , Neutrophils % (Manual) [Pending], Lymphocytes % (Manual) [Pending], Platelet Estimate [Pending], Platelet Morphology [Pending] Height (Feet): 5 Height (Inches): 2.00 Weight (Pounds): 180 Respiratory/Chest: lungs clear Abdomen: soft Liu Elizondo MD Oct 02, 2016 13:55
[2016-10-02 14:29] LABS: BAND NEUTROPHILS % (MANUAL) 1 % (0-8); BASOPHILS % (MANUAL) 0 % (0-2); EOSINOPHILS % (MANUAL) 3 % (0-3); LYMPHOCYTES % (MANUAL) 6 % (20-45); NEUTROPHILS % (MANUAL) 87 % (45-75); PLATELET ESTIMATE ADEQUATE; PLATELET MORPHOLOGY NORMAL; TOTAL CELLS COUNTED 100
[2016-10-02 14:31] LABS: ANISOCYTOSIS 2+
[2016-10-02 14:33] LABS: HYPOCHROMASIA 2+
--- NOTE | 2016-10-02 15:18 | Consultation ---
DATE OF CONSULTATION: 10/02/2016 CHIEF COMPLAINT: Anemia and gastrointestinal bleeding. HISTORY OF PRESENT ILLNESS: This is a 60-year-old male with multiple medical problems including diabetes, hypertension, and end-stage renal disease, on hemodialysis, who was admitted to the hospital. The patient had anemia and black tarry stools, so GI consult was requested for evaluation. PAST MEDICAL HISTORY: 1. End-stage renal disease, on hemodialysis. 2. Diabetes. 3. Hypertension. 4. History of drug abuse. PAST SURGICAL HISTORY: Unknown. ALLERGIES: No known drug allergy. MEDICATIONS: Please see medication reconciliation list. SOCIAL HISTORY: The patient has prior history of drug usage including cocaine and also had history of tobacco usage. He only social drinker. FAMILY HISTORY: Noncontributory. REVIEW OF SYSTEMS: A 10-point review of systems was performed and pertinent positives in the history of present illness. PHYSICAL EXAMINATION: GENERAL: Well developed male, in no acute distress. VITAL SIGNS: Temperature is 96.6 degrees, pulse is 90, respirations 20, and blood pressure is 104/57. HEENT: Normocephalic with mild pale conjunctiva. NECK: Supple. No lymphadenopathy. CARDIOVASCULAR: Regular rhythm. Plus S1 and S2. LUNGS: Decreased breath sounds bilaterally diffusely. ABDOMEN: Soft and mildly distended. No rebound. No guarding. No peritoneal sign. EXTREMITIES: There is edema of the right arm +2. Otherwise, no other findings. LABORATORY AND DIAGNOSTIC DATA: BUN is 59 and creatinine 4.0. White count is 8.9, hemoglobin 8.5, hematocrit 27, and platelet count is 153,000. Stool OB is pending. ASSESSMENT AND PLAN: This is a 60-year-old male with end-stage renal disease, on hemodialysis, anemia, possible gastrointestinal bleeding. PLAN: PPI b.i.d. Check CBC today and transfuse if hemoglobin less than 7.5. Consider endoscopy if the patient shows signs and symptoms of active bleeding. If the stool OB becomes back positive. I want to thank, Dr. Liu Elizondo, for this kind referral. Please . Warner Bal M.D. DR: MARIJA JOB#: [id number] CC:
--- NOTE | 2016-10-02 15:58 | Consultation ---
Consult Note Assessment/Plan HH dropping dangerously low -4.9/15.9 patient needs immediate transfusion of 2 u PRBC will check CBC in am, recommend GI consult as per PMD discretions get stool OB stat Jevon ([facility]),Kate PONCE Oct 02, 2016 15:58
[2016-10-02 16:19] VITALS: BP 107/56
--- NOTE | 2016-10-02 17:52 | Infectious Diseases Prog Note ---
Assessment/Plan Problems: (1) Colonization with VRE (vancomycin-resistant enterococcus) Assessment & Plan: keep in contact isolation (2) ESRD (end stage renal disease) on dialysis Assessment & Plan: continue HD as per renal. (3) Cocaine abuse Assessment & Plan: recommend counseling and rehab (4) Chest pain Assessment & Plan: evaluation as per primary (5) Anemia in chronic kidney disease Assessment & Plan: stable, monitor H/H transfuse as needed Subjective Constitutional: Reports: no symptoms HEENT: Reports: no symptoms Respiratory: Reports: no symptoms Cardiovascular: Reports: no symptoms Gastrointestinal/Abdominal: Reports: no symptoms Genitourinary: Reports: no symptoms Neurologic: Reports: no symptoms Psychiatric: Reports: no symptoms Skin: Reports: no symptoms Allergies: Coded Allergies: No Known Allergies (Unverified , 09/28/16) Subjective he was doing well today, denied any symptoms. Objective Vital Signs Last 24 Hour Vital Signs Date Time Temp Pulse Resp B/P Pulse Ox O2 Delivery O2 Flow Rate FiO2 10/02/16 16:19 97.8 77 14 107/56 92 Room Air 10/02/16 12:00 97.0 80 20 106/58 92 Room Air 10/02/16 09:50 96.6 10/02/16 08:31 93 104/57 10/02/16 08:00 97.2 93 20 104/57 96 Room Air 10/02/16 07:38 92 20 Room Air 10/02/16 04:00 96.6 90 20 135/70 94 Room Air 10/02/16 00:00 97.5 85 20 146/60 94 Room Air 10/01/16 18:43 88 18 Room Air 21 Height (Feet): 5 Height (Inches): 2.00 Weight (Pounds): 180 General Appearance: WD/WN, no acute distress HEENT: normocephalic, atraumatic, anicteric, mucous membranes moist, supple, no JVD Respiratory/Chest: chest wall non-tender, lungs clear, normal breath sounds, no respiratory distress, no accessory muscle use Cardiovascular: normal peripheral pulses, normal rate, regular rhythm, no gallop/murmur Abdomen: normal bowel sounds, soft, non tender, no organomegaly, non distended , no mass Extremities: no cyanosis, no clubbing Skin: no rash, no lesions, ulcers Laboratory Tests Test 10/01/16 20:25 10/02/16 13:05 Stool Occult Blood Positive (NEGATIVE) White Blood Count 8.4 K/UL (4.8-10.8) Red Blood Count 1.81 M/UL (4.70-6.10) L Hemoglobin 4.9 G/DL (14.2-18.0) *L Hematocrit 15.9 % (42.0-52.0) L Mean Corpuscular Volume 88 FL (80-99) Mean Corpuscular Hemoglobin 27.0 PG (27.0-31.0) Mean Corpuscular Hemoglobin Concent 30.6 G/DL (32.0-36.0) L Red Cell Distribution Width 19.6 % (11.6-14.8) H Platelet Count 239 K/UL (150-450) Mean Platelet Volume 6.1 FL (6.5-10.1) L Neutrophils (%) (Auto) % (45.0-75.0) Lymphocytes (%) (Auto) % (20.0-45.0) Monocytes (%) (Auto) % (1.0-10.0) Eosinophils (%) (Auto) % (0.0-3.0) Basophils (%) (Auto) % (0.0-2.0) Differential Total Cells Counted 100 Neutrophils % (Manual) 87 % (45-75) H Lymphocytes % (Manual) 6 % (20-45) L Monocytes % (Manual) 3 % (1-10) Eosinophils % (Manual) 3 % (0-3) Basophils % (Manual) 0 % (0-2) Band Neutrophils 1 % (0-8) Platelet Estimate Adequate Platelet Morphology Normal Hypochromasia 2+ Anisocytosis 2+ Current Medications Medications (Trade) Dose Ordered Sig/Lillian Route PRN Reason Start Time Stop Time Status Last Admin Dose Admin Acetaminophen (Tylenol) 650 mg Q4H PRN ORAL Fever 09/30/16 19:30 10/30/16 19:29 Albuterol/ Ipratropium (DuoNeb 0.5-3(2.5)mg/3ml) 3 ml Q4H PRN HHN Shortness of Breath 09/30/16 21:00 10/05/16 20:59 Amlodipine Besylate (Norvasc) 5 mg DAILY ORAL 10/01/16 09:00 10/31/16 08:59 Dextrose (Dextrose 50%) STAT PRN IV Hypoglycemia 09/30/16 19:30 10/30/16 19:29 Epoetin Joseph (Procrit (for ESRD on dialysis)) 5,000 units TUE-TUE-TUE SUBQ 10/01/16 21:00 10/31/16 20:59 10/01/16 21:41 Insulin Aspart (NovoLOG) BEFORE MEALS AND HS SUBQ 09/30/16 21:00 10/30/16 20:59 Lidocaine (Lidoderm 5% PATCH) 1 patch DAILY TDERMAL 10/01/16 09:00 10/31/16 08:59 10/02/16 08:28 Ondansetron HCl (Zofran) 4 mg Q6H PRN IVP Nausea & Vomiting 09/30/16 19:30 10/30/16 19:29 Pantoprazole (Protonix) 40 mg EVERY 12 HOURS ORAL 10/01/16 21:00 10/31/16 20:59 10/02/16 08:30 Polyethylene Glycol (Miralax) 17 gm DAILYPRN PRN ORAL Constipation 09/30/16 19:30 10/30/16 19:29 10/02/16 08:28 Sodium Chloride (Sodium Chloride 1000ml bag) 1,000 ml @ 500 mls/hr Q2H PRN IVLG sbp<90 during hd 10/01/16 06:00 10/31/16 05:59 Temazepam (Restoril) 15 mg HSPRN PRN ORAL Insomnia 09/30/16 19:30 10/07/16 19:29 Tramadol HCl (Ultram) 50 mg Q4H PRN ORAL moderate pain 10/01/16 08:15 10/08/16 08:14 10/02/16 08:29 Vitamin B Complex/ Vit C/Folic Acid (Nephrovite) 1 tab DAILY ORAL 10/01/16 09:00 10/31/16 08:59 10/02/16 08:28 Ivania Bhardwaj M.D. Oct 02, 2016 17:52
[2016-10-02 20:00] VITALS: BP 111/58
[2016-10-03] VITALS (7 sets, daily range): BP systolic 101–135; BP diastolic 47–70
[2016-10-03] MEDS: NovoLOG Insulin Flexpen SUBQ SCH ×4 (06:30→21:00)
[2016-10-03] MEDS: Nephrovite tab ORAL SCH (08:24)
--- NOTE | 2016-10-03 08:34 | General Progress Note ---
Assessment/Plan Problem List: (1) Cocaine abuse ICD Codes: F14.10 - Cocaine abuse, uncomplicated SNOMED: 86145310, 975843163 (2) Chest pain ICD Codes: R07.9 - Chest pain, unspecified SNOMED: 31550843, 204996210 Qualifiers: Qualified Codes: R07.9 - Chest pain, unspecified Status: progressing Assessment/Plan afebrile clinically improving dc planning reviewed chart and labs Subjective ROS Limited/Unobtainable: Yes Constitutional: Reports: no symptoms Allergies: Coded Allergies: No Known Allergies (Unverified , 09/28/16) Objective Last 24 Hour Vital Signs Date Time Temp Pulse Resp B/P Pulse Ox O2 Delivery O2 Flow Rate FiO2 10/03/16 08:23 46 117/63 10/03/16 08:16 97.2 46 20 117/63 95 Room Air 10/03/16 04:00 97.0 76 16 109/56 100 Room Air 10/03/16 00:00 96.9 78 17 107/47 98 Room Air 10/02/16 20:00 96.9 47 18 111/58 100 Room Air 10/02/16 19:50 75 18 Room Air 21 10/02/16 16:19 97.8 77 14 107/56 92 Room Air 10/02/16 12:00 97.0 80 20 106/58 92 Room Air 10/02/16 09:50 96.6 Intake and Output 10/02/16 10/03/16 19:00 07:00 Intake Total 800 ml 570 ml Balance 800 ml 570 ml Intake Oral 800 ml 280 ml Blood Product 290 ml # Voids 2 2 # Bowel Movements 3 2 Laboratory Tests 10/02/16 13:05: White Blood Count 8.4, Red Blood Count 1.81L, Hemoglobin 4.9*L, Hematocrit 15.9L , Mean Corpuscular Volume 88, Mean Corpuscular Hemoglobin 27.0, Mean Corpuscular Hemoglobin Concent 30.6L, Red Cell Distribution Width 19.6H, Platelet Count 239, Mean Platelet Volume 6.1L, Neutrophils (%) (Auto) , Lymphocytes (%) (Auto) , Monocytes (%) (Auto) , Eosinophils (%) (Auto) , Basophils (%) (Auto) , Differential Total Cells Counted 100, Neutrophils % ( Manual) 87H, Lymphocytes % (Manual) 6L, Monocytes % (Manual) 3, Eosinophils % ( Manual) 3, Basophils % (Manual) 0, Band Neutrophils 1, Platelet Estimate Adequate, Platelet Morphology Normal, Hypochromasia 2+, Anisocytosis 2+ 10/03/16 06:10: Stool Occult Blood [Pending] 10/03/16 08:20: White Blood Count [Pending], Red Blood Count [Pending], Hemoglobin [Pending], Hematocrit [Pending], Mean Corpuscular Volume [Pending], Mean Corpuscular Hemoglobin [Pending], Mean Corpuscular Hemoglobin Concent [Pending], Red Cell Distribution Width [Pending], Platelet Count [Pending], Mean Platelet Volume [ Pending], Neutrophils (%) (Auto) [Pending], Lymphocytes (%) (Auto) [Pending], Monocytes (%) (Auto) [Pending], Eosinophils (%) (Auto) [Pending], Basophils (%) (Auto) [Pending], Prothrombin Time [Pending], Prothromb Time International Ratio [Pending], Activated Partial Thromboplast Time [Pending], Sodium Level [ Pending], Potassium Level [Pending], Chloride Level [Pending], Carbon Dioxide Level [Pending], Blood Urea Nitrogen [Pending], Creatinine [Pending], Estimat Glomerular Filtration Rate [Pending], Glucose Level [Pending], Uric Acid [ Pending], Calcium Level [Pending], Phosphorus Level [Pending], Total Bilirubin [ Pending], Aspartate Amino Transf (AST/SGOT) [Pending], Alanine Aminotransferase (ALT/SGPT) [Pending], Alkaline Phosphatase [Pending], Pro-B-Type Natriuretic Peptide [Pending], Total Protein [Pending], Albumin [Pending], Globulin [Pending ] Height (Feet): 5 Height (Inches): 2.00 Weight (Pounds): 180 EENT: PERRL/EOMI Neck: supple Cardiovascular: normal rate Respiratory/Chest: lungs clear Abdomen: soft Liu Elizondo MD Oct 03, 2016 08:34
[2016-10-03 08:37] LABS: MEAN CORPUSCULAR HEMOGLOBIN 28.5 PG (27.0-31.0); MEAN CORPUSCULAR HGB CONC 32.4 G/DL (32.0-36.0); MEAN CORPUSCULAR VOLUME 88 FL (80-99); MEAN PLATELET VOLUME 6.8 FL (6.5-10.1); PLATELET COUNT 263 K/UL (150-450); RED BLOOD COUNT 2.71 M/UL (4.70-6.10)
[2016-10-03 08:44] LABS: INR 1.3 (0.9-1.1); PROTHROMBIN TIME 13.2 SEC (9.30-11.50)
[2016-10-03 08:50] LABS: ALANINE AMINOTRANSFERASE 6 U/L (3-41); ALBUMIN/GLOBULIN RATIO 0.9 (1.0-2.7); ANION GAP 19 (5-15); ASPARTATE AMINO TRANSFERASE 21 U/L (5-40); CARBON DIOXIDE 24 mEQ/L (20-30); CHLORIDE 93 mEQ/L (98-107); CREATININE 4.3 mg/dL (0.7-1.2); GLOMERULAR FILTRATION RATE 17.1 mL/min (>60); HEMOLYSIS 5; PHOSPHORUS 4.1 mg/dL (2.5-4.8); SODIUM 136 mEQ/L (135-145); TOTAL PROTEIN 6.1 g/dL (6.6-8.7); URIC ACID 5.7 mg/dL (3.0-7.5)
[2016-10-03 09:39] LABS: ANISOCYTOSIS 1+; BAND NEUTROPHILS % (MANUAL) 0 % (0-8); BASOPHILS % (MANUAL) 2 % (0-2); EOSINOPHILS % (MANUAL) 3 % (0-3); HYPOCHROMASIA 3+; LYMPHOCYTES % (MANUAL) 7 % (20-45); NEUTROPHILS % (MANUAL) 83 % (45-75); PLATELET ESTIMATE ADEQUATE; PLATELET MORPHOLOGY NORMAL; POLYCHROMASIA 1+; SPHEROCYTES 1+; TOTAL CELLS COUNTED 100
[2016-10-03 09:41] LABS: BILIRUBIN,DIRECT 0.9 mg/dL (0.1-0.3)
[2016-10-03] MEDS ORDERED: Tubing Blood Filter IV ONE (09:57)
[2016-10-03] MEDS ORDERED: NS 275ml ONE (09:57)
--- NOTE | 2016-10-03 10:08 | General Progress Note ---
Assessment/Plan Problem List: (1) GIB (gastrointestinal bleeding) ICD Codes: K92.2 - Gastrointestinal hemorrhage, unspecified SNOMED: 19624101 (2) Cocaine abuse ICD Codes: F14.10 - Cocaine abuse, uncomplicated SNOMED: 01962843, 731055518 (3) ESRD (end stage renal disease) on dialysis ICD Codes: N18.6 - End stage renal disease; Z99.2 - Dependence on renal dialysis SNOMED: 362171867 (4) Anemia in chronic kidney disease ICD Codes: N18.9 - Chronic kidney disease, unspecified; D63.1 - Anemia in chronic kidney disease SNOMED: 368149546, 305588002 Assessment/Plan clear liquid ppi prn blood transfusion EGD on tuesday Subjective ROS Limited/Unobtainable: Yes Allergies: Coded Allergies: No Known Allergies (Unverified , 09/28/16) All Systems: reviewed and negative except above Objective Last 24 Hour Vital Signs Date Time Temp Pulse Resp B/P Pulse Ox O2 Delivery O2 Flow Rate FiO2 10/03/16 09:00 70 17 101/59 96 Room Air 10/03/16 08:23 46 117/63 10/03/16 08:16 97.2 46 20 117/63 95 Room Air 10/03/16 07:20 68 18 Room Air 21 10/03/16 04:00 97.0 76 16 109/56 100 Room Air 10/03/16 00:00 96.9 78 17 107/47 98 Room Air 10/02/16 20:00 96.9 47 18 111/58 100 Room Air 10/02/16 19:50 75 18 Room Air 21 10/02/16 16:19 97.8 77 14 107/56 92 Room Air 10/02/16 12:00 97.0 80 20 106/58 92 Room Air Intake and Output 10/02/16 10/03/16 19:00 07:00 Intake Total 800 ml 570 ml Balance 800 ml 570 ml Intake Oral 800 ml 280 ml Blood Product 290 ml # Voids 2 2 # Bowel Movements 3 2 Laboratory Tests 10/02/16 13:05: White Blood Count 8.4, Red Blood Count 1.81L, Hemoglobin 4.9*L, Hematocrit 15.9L , Mean Corpuscular Volume 88, Mean Corpuscular Hemoglobin 27.0, Mean Corpuscular Hemoglobin Concent 30.6L, Red Cell Distribution Width 19.6H, Platelet Count 239, Mean Platelet Volume 6.1L, Neutrophils (%) (Auto) , Lymphocytes (%) (Auto) , Monocytes (%) (Auto) , Eosinophils (%) (Auto) , Basophils (%) (Auto) , Differential Total Cells Counted 100, Neutrophils % ( Manual) 87H, Lymphocytes % (Manual) 6L, Monocytes % (Manual) 3, Eosinophils % ( Manual) 3, Basophils % (Manual) 0, Band Neutrophils 1, Platelet Estimate Adequate, Platelet Morphology Normal, Hypochromasia 2+, Anisocytosis 2+ 10/03/16 06:10: Stool Occult Blood [Pending] 10/03/16 08:20: White Blood Count 9.0, Red Blood Count 2.71L, Hemoglobin 7.7#L, Hematocrit 23.8# L, Mean Corpuscular Volume 88, Mean Corpuscular Hemoglobin 28.5, Mean Corpuscular Hemoglobin Concent 32.4, Red Cell Distribution Width 17.0H, Platelet Count 263, Mean Platelet Volume 6.8, Neutrophils (%) (Auto) , Lymphocytes (%) (Auto) , Monocytes (%) (Auto) , Eosinophils (%) (Auto) , Basophils (%) (Auto) , Differential Total Cells Counted 100, Neutrophils % ( Manual) 83H, Lymphocytes % (Manual) 7L, Monocytes % (Manual) 5, Eosinophils % ( Manual) 3, Basophils % (Manual) 2, Band Neutrophils 0, Platelet Estimate Adequate, Platelet Morphology Normal, Hypochromasia 3+, Anisocytosis 1+, Polychromasia 1+, Spherocytes 1+, Prothrombin Time 13.2H, Prothromb Time International Ratio 1.3H, Activated Partial Thromboplast Time 29, Sodium Level 136, Potassium Level 4.0, Chloride Level 93L, Carbon Dioxide Level 24, Anion Gap 19H, Blood Urea Nitrogen 98H, Creatinine 4.3H, Estimat Glomerular Filtration Rate 17.1, Glucose Level 91, Uric Acid 5.7, Calcium Level 9.0, Phosphorus Level 4.1, Total Bilirubin 1.5H, Direct Bilirubin 0.9H, Aspartate Amino Transf (AST/SGOT) 21, Alanine Aminotransferase (ALT/SGPT) 6, Alkaline Phosphatase 97, Pro-B-Type Natriuretic Peptide > 89985U, Total Protein 6.1L, Albumin 3.0L, Globulin 3.1, Albumin/Globulin Ratio 0.9L Height (Feet): 5 Height (Inches): 2.00 Weight (Pounds): 180 General Appearance: alert EENT: normal ENT inspection Neck: supple Cardiovascular: normal rate Respiratory/Chest: decreased breath sounds Abdomen: normal bowel sounds, non tender, soft Extremities: non-tender JEANETTE WILLETT Oct 03, 2016 10:08
--- NOTE | 2016-10-03 10:14 | General Progress Note ---
Assessment/Plan Assessment/Plan (1) Cocaine abuse (2) Chest pain (3) CHF (4) ESRD on Hemodialysis (5) Lumbar sprain s/p fall Pt will be continued on Lidoderm patch and tramadol, Xray results pending. Pt was d/w Dr. Rodriguez and he concurred. Subjective Date patient seen: Oct 03, 2016 Time patient seen: 09:15 - am Allergies: Coded Allergies: No Known Allergies (Unverified , 09/28/16) Subjective REVIEW OF SYSTEMS: Denies rash, fever, chills, sweating, dizziness, drowsiness, blurred vision, sore throat, or change in weight. No nausea, vomiting, diarrhea, or blood in the stool or urine. No bowel or bladder incontinence. No dysuria. c/o back pain SUBJECTIVE: Pt reports that his pain has been stable and is a 3/10. Xray results pending. Objective Last 24 Hour Vital Signs Date Time Temp Pulse Resp B/P Pulse Ox O2 Delivery O2 Flow Rate FiO2 10/03/16 09:00 70 17 101/59 96 Room Air 10/03/16 08:23 46 117/63 10/03/16 08:16 97.2 46 20 117/63 95 Room Air 10/03/16 07:20 68 18 Room Air 21 10/03/16 04:00 97.0 76 16 109/56 100 Room Air 10/03/16 00:00 96.9 78 17 107/47 98 Room Air 10/02/16 20:00 96.9 47 18 111/58 100 Room Air 10/02/16 19:50 75 18 Room Air 21 10/02/16 16:19 97.8 77 14 107/56 92 Room Air 10/02/16 12:00 97.0 80 20 106/58 92 Room Air Intake and Output 10/02/16 10/03/16 19:00 07:00 Intake Total 800 ml 570 ml Balance 800 ml 570 ml Intake Oral 800 ml 280 ml Blood Product 290 ml # Voids 2 2 # Bowel Movements 3 2 Laboratory Tests 10/02/16 13:05: White Blood Count 8.4, Red Blood Count 1.81L, Hemoglobin 4.9*L, Hematocrit 15.9L , Mean Corpuscular Volume 88, Mean Corpuscular Hemoglobin 27.0, Mean Corpuscular Hemoglobin Concent 30.6L, Red Cell Distribution Width 19.6H, Platelet Count 239, Mean Platelet Volume 6.1L, Neutrophils (%) (Auto) , Lymphocytes (%) (Auto) , Monocytes (%) (Auto) , Eosinophils (%) (Auto) , Basophils (%) (Auto) , Differential Total Cells Counted 100, Neutrophils % ( Manual) 87H, Lymphocytes % (Manual) 6L, Monocytes % (Manual) 3, Eosinophils % ( Manual) 3, Basophils % (Manual) 0, Band Neutrophils 1, Platelet Estimate Adequate, Platelet Morphology Normal, Hypochromasia 2+, Anisocytosis 2+ 10/03/16 06:10: Stool Occult Blood [Pending] 10/03/16 08:20: White Blood Count 9.0, Red Blood Count 2.71L, Hemoglobin 7.7#L, Hematocrit 23.8# L, Mean Corpuscular Volume 88, Mean Corpuscular Hemoglobin 28.5, Mean Corpuscular Hemoglobin Concent 32.4, Red Cell Distribution Width 17.0H, Platelet Count 263, Mean Platelet Volume 6.8, Neutrophils (%) (Auto) , Lymphocytes (%) (Auto) , Monocytes (%) (Auto) , Eosinophils (%) (Auto) , Basophils (%) (Auto) , Differential Total Cells Counted 100, Neutrophils % ( Manual) 83H, Lymphocytes % (Manual) 7L, Monocytes % (Manual) 5, Eosinophils % ( Manual) 3, Basophils % (Manual) 2, Band Neutrophils 0, Platelet Estimate Adequate, Platelet Morphology Normal, Hypochromasia 3+, Anisocytosis 1+, Polychromasia 1+, Spherocytes 1+, Prothrombin Time 13.2H, Prothromb Time International Ratio 1.3H, Activated Partial Thromboplast Time 29, Sodium Level 136, Potassium Level 4.0, Chloride Level 93L, Carbon Dioxide Level 24, Anion Gap 19H, Blood Urea Nitrogen 98H, Creatinine 4.3H, Estimat Glomerular Filtration Rate 17.1, Glucose Level 91, Uric Acid 5.7, Calcium Level 9.0, Phosphorus Level 4.1, Total Bilirubin 1.5H, Direct Bilirubin 0.9H, Aspartate Amino Transf (AST/SGOT) 21, Alanine Aminotransferase (ALT/SGPT) 6, Alkaline Phosphatase 97, Pro-B-Type Natriuretic Peptide > 12545O, Total Protein 6.1L, Albumin 3.0L, Globulin 3.1, Albumin/Globulin Ratio 0.9L Height (Feet): 5 Height (Inches): 2.00 Weight (Pounds): 180 Objective PHYSICAL EXAMINATION: GENERAL: Alert, awake, and oriented. HEENT: PERRLA. NECK: Range of motion is full in all directions. No tenderness to paracervical muscles. No adenopathy. LUNGS: Decreased breath sounds bilaterally. HEART: S1 and S2, regular. ABDOMEN: Obese. BACK: Range of motion is decreased in flexion and extension with tenderness to paraspinous and trapezius muscles. EXTREMITIES: No cyanosis, no clubbing, edema noted on RUE. NEURO: No changes. ARRON EDWARD Oct 03, 2016 10:14
--- NOTE | 2016-10-03 11:17 | Diagnostic Imaging Report ---
Indication: Back pain Technique: Lumbar spine 5 views Comparison: None Findings: There is no gross fracture. Lumbar alignment is within normal limits. Minimal degenerative endplate osteophytes are seen. Extensive atherosclerotic changes are noted. Punctate calcification projects over the left midabdomen. Impression: No acute osseous abnormality. Extensive atherosclerotic calcification. Punctate calcification projecting over the left mid abdomen possibly a renal calculus. Further evaluation recommended as indicated.
--- NOTE | 2016-10-03 12:21 | General Progress Note ---
Assessment/Plan Assessment/Plan ASSESSMENT: 1. Anemia secondary to end-stage renal disease. Ferritin is 711. On epogen 2. Acute drop in hgb, consider GI bleed, being seen by GI 3. Thrombocytopenia potentially secondary to underlying infection. hep and hiv negative, now better 4. Coagulopathy INR is 1.4 5. Diabetes mellitus. 6. End-stage renal disease on hemodialysis. 7. Cocaine use history. RECOMMENDATIONS: 1. Monitor counts. 2. Transfuse if hemoglobin less than 7.5. 3. Continue epogen 4. Followup GI recs 5. Ultrasound of the abdomen reviewed 6. Peripheral smear shows no abnmls 7. Anemia workup has been reviewed 8. Followup on Nephrology, Pulmonary, and Cardiology recommendations 9. DVT prophylaxis with scds 10. GI prophylaxis prn 11. Pain control. 12. Discussed with staff. Thank you, Hugh Lopez MD Subjective Constitutional: Reports: no symptoms HEENT: Reports: no symptoms Cardiovascular: Reports: no symptoms Respiratory: Reports: no symptoms Gastrointestinal/Abdominal: Reports: poor appetite Genitourinary: Reports: no symptoms 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: Reports: no symptoms Endocrine: Reports: no symptoms Hematologic/Lymphatic: Reports: anemia Allergies: Coded Allergies: No Known Allergies (Unverified , 09/28/16) Subjective H/H low yesterday, has recieved 2 units prbc Objective Last 24 Hour Vital Signs Date Time Temp Pulse Resp B/P Pulse Ox O2 Delivery O2 Flow Rate FiO2 10/03/16 11:41 97.2 77 19 110/61 95 Room Air 10/03/16 09:00 70 17 101/59 96 Room Air 10/03/16 08:23 46 117/63 10/03/16 08:16 97.2 46 20 117/63 95 Room Air 10/03/16 07:20 68 18 Room Air 21 10/03/16 04:00 97.0 76 16 109/56 100 Room Air 10/03/16 00:00 96.9 78 17 107/47 98 Room Air 10/02/16 20:00 96.9 47 18 111/58 100 Room Air 10/02/16 19:50 75 18 Room Air 21 10/02/16 16:19 97.8 77 14 107/56 92 Room Air Intake and Output 10/02/16 10/03/16 19:00 07:00 Intake Total 800 ml 570 ml Balance 800 ml 570 ml Intake Oral 800 ml 280 ml Blood Product 290 ml # Voids 2 2 # Bowel Movements 3 2 Laboratory Tests 10/02/16 13:05: White Blood Count 8.4, Red Blood Count 1.81L, Hemoglobin 4.9*L, Hematocrit 15.9L , Mean Corpuscular Volume 88, Mean Corpuscular Hemoglobin 27.0, Mean Corpuscular Hemoglobin Concent 30.6L, Red Cell Distribution Width 19.6H, Platelet Count 239, Mean Platelet Volume 6.1L, Neutrophils (%) (Auto) , Lymphocytes (%) (Auto) , Monocytes (%) (Auto) , Eosinophils (%) (Auto) , Basophils (%) (Auto) , Differential Total Cells Counted 100, Neutrophils % ( Manual) 87H, Lymphocytes % (Manual) 6L, Monocytes % (Manual) 3, Eosinophils % ( Manual) 3, Basophils % (Manual) 0, Band Neutrophils 1, Platelet Estimate Adequate, Platelet Morphology Normal, Hypochromasia 2+, Anisocytosis 2+ 10/03/16 06:10: Stool Occult Blood [Pending] 10/03/16 08:20: White Blood Count 9.0, Red Blood Count 2.71L, Hemoglobin 7.7#L, Hematocrit 23.8# L, Mean Corpuscular Volume 88, Mean Corpuscular Hemoglobin 28.5, Mean Corpuscular Hemoglobin Concent 32.4, Red Cell Distribution Width 17.0H, Platelet Count 263, Mean Platelet Volume 6.8, Neutrophils (%) (Auto) , Lymphocytes (%) (Auto) , Monocytes (%) (Auto) , Eosinophils (%) (Auto) , Basophils (%) (Auto) , Differential Total Cells Counted 100, Neutrophils % ( Manual) 83H, Lymphocytes % (Manual) 7L, Monocytes % (Manual) 5, Eosinophils % ( Manual) 3, Basophils % (Manual) 2, Band Neutrophils 0, Platelet Estimate Adequate, Platelet Morphology Normal, Hypochromasia 3+, Anisocytosis 1+, Polychromasia 1+, Spherocytes 1+, Prothrombin Time 13.2H, Prothromb Time International Ratio 1.3H, Activated Partial Thromboplast Time 29, Sodium Level 136, Potassium Level 4.0, Chloride Level 93L, Carbon Dioxide Level 24, Anion Gap 19H, Blood Urea Nitrogen 98H, Creatinine 4.3H, Estimat Glomerular Filtration Rate 17.1, Glucose Level 91, Uric Acid 5.7, Calcium Level 9.0, Phosphorus Level 4.1, Total Bilirubin 1.5H, Direct Bilirubin 0.9H, Aspartate Amino Transf (AST/SGOT) 21, Alanine Aminotransferase (ALT/SGPT) 6, Alkaline Phosphatase 97, Pro-B-Type Natriuretic Peptide > 65577B, Total Protein 6.1L, Albumin 3.0L, Globulin 3.1, Albumin/Globulin Ratio 0.9L Height (Feet): 5 Height (Inches): 2.00 Weight (Pounds): 180 General Appearance: no apparent distress EENT: TMs normal Neck: supple Cardiovascular: regular rhythm Respiratory/Chest: lungs clear Abdomen: normal bowel sounds Extremities: non-tender Edema: 1+ Leg (L), 1+ Leg (R) Edema: mild edema Neurologic: alert Skin: warm/dry Hugh Lopez Oct 03, 2016 12:21
--- NOTE | 2016-10-03 14:23 | Pulmonology Progress Note ---
Assessment/Plan Assessment/Plan ASSESSMENT chest pain ( after cocaine abuse) 2 to vasospasm cardiomyopathy moderate pulmonary HTN severe MR severe TR acute anemia r/o GI bleeding ESRD, on HD HTN DM cocaine abuse PLAN OF CARE MS floor serial troponin negative, cardio follows, ruled out for ACS CP after cocaine abuse due to vasospasm -as per cardio, ECHO with EF 30-35%, severe MR and TR, RVSP of 50 c/w moderate pulmonary HTN BP management with CCB ,avoid BB due to cocaine use BS management with SS of insulin transfuse additional unit of PRBC today GI eval noted CL diet for now EGD planned for 10/05 PPI heme follows stool OB x 2 ( #1 -positive) HD as per nephro classification counselor on avoidance of cocaine DVT, GI prophylaxis case discussed and evaluated by supervising physician Subjective Allergies: Coded Allergies: No Known Allergies (Unverified , 09/28/16) Subjective HH up after 2 u of PRBC on 10/02 till 7.7/23.8 afebrile, no leucocytosis on RA no signs of respiratory distress denies dizziness, blackout no SOB, no chest pain Objective Last 24 Hour Vital Signs Date Time Temp Pulse Resp B/P Pulse Ox O2 Delivery O2 Flow Rate FiO2 10/03/16 11:41 97.2 77 19 110/61 95 Room Air 10/03/16 09:00 70 17 101/59 96 Room Air 10/03/16 08:23 46 117/63 10/03/16 08:16 97.2 46 20 117/63 95 Room Air 10/03/16 07:20 68 18 Room Air 21 10/03/16 04:00 97.0 76 16 109/56 100 Room Air 10/03/16 00:00 96.9 78 17 107/47 98 Room Air 10/02/16 20:00 96.9 47 18 111/58 100 Room Air 10/02/16 19:50 75 18 Room Air 21 10/02/16 16:19 97.8 77 14 107/56 92 Room Air Intake and Output 10/02/16 10/03/16 18:59 06:59 Intake Total 800 ml 570 ml Balance 800 ml 570 ml Intake Oral 800 ml 280 ml Blood Product 290 ml # Voids 2 2 # Bowel Movements 3 2 Objective General Appearance: WD/WN, no acute distress HEENT: normocephalic, atraumatic, anicteric Respiratory/Chest: chest wall non-tender, lungs clear - with moderate air entry Cardiovascular: normal rate, regular rhythm Abdomen: normal bowel sounds, soft, non tender Extremities: no edema, pedal pulses normal 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: no motor/sensory deficits, alert, oriented x 3, responsive Musculoskeletal: normal muscle bulk Laboratory Tests 10/03/16 06:10: Stool Occult Blood [Pending] 10/03/16 08:20: White Blood Count 9.0, Red Blood Count 2.71L, Hemoglobin 7.7#L, Hematocrit 23.8# L, Mean Corpuscular Volume 88, Mean Corpuscular Hemoglobin 28.5, Mean Corpuscular Hemoglobin Concent 32.4, Red Cell Distribution Width 17.0H, Platelet Count 263, Mean Platelet Volume 6.8, Neutrophils (%) (Auto) , Lymphocytes (%) (Auto) , Monocytes (%) (Auto) , Eosinophils (%) (Auto) , Basophils (%) (Auto) , Differential Total Cells Counted 100, Neutrophils % ( Manual) 83H, Lymphocytes % (Manual) 7L, Monocytes % (Manual) 5, Eosinophils % ( Manual) 3, Basophils % (Manual) 2, Band Neutrophils 0, Platelet Estimate Adequate, Platelet Morphology Normal, Polychromasia 1+, Hypochromasia 3+, Anisocytosis 1+, Spherocytes 1+, Prothrombin Time 13.2H, Prothromb Time International Ratio 1.3H, Activated Partial Thromboplast Time 29, Sodium Level 136, Potassium Level 4.0, Chloride Level 93L, Carbon Dioxide Level 24, Anion Gap 19H, Blood Urea Nitrogen 98H, Creatinine 4.3H, Estimat Glomerular Filtration Rate 17.1, Glucose Level 91, Uric Acid 5.7, Calcium Level 9.0, Phosphorus Level 4.1, Total Bilirubin 1.5H, Direct Bilirubin 0.9H, Aspartate Amino Transf (AST/SGOT) 21, Alanine Aminotransferase (ALT/SGPT) 6, Alkaline Phosphatase 97, Pro-B-Type Natriuretic Peptide > 23525F, Total Protein 6.1L, Albumin 3.0L, Globulin 3.1, Albumin/Globulin Ratio 0.9L Current Medications Medications (Trade) Dose Ordered Sig/Lillian Route PRN Reason Start Time Stop Time Status Last Admin Dose Admin Acetaminophen (Tylenol) 650 mg Q4H PRN ORAL Fever 09/30/16 19:30 10/30/16 19:29 Albuterol/ Ipratropium (DuoNeb 0.5-3(2.5)mg/3ml) 3 ml Q4H PRN HHN Shortness of Breath 09/30/16 21:00 10/05/16 20:59 Amlodipine Besylate (Norvasc) 5 mg DAILY ORAL 10/01/16 09:00 10/31/16 08:59 Dextrose (Dextrose 50%) STAT PRN IV Hypoglycemia 09/30/16 19:30 10/30/16 19:29 Epoetin Joseph (Procrit (for ESRD on dialysis)) 5,000 units TUE-TUE-TUE SUBQ 10/01/16 21:00 10/31/16 20:59 10/01/16 21:41 Insulin Aspart (NovoLOG) BEFORE MEALS AND HS SUBQ 09/30/16 21:00 10/30/16 20:59 Lidocaine (Lidoderm 5% PATCH) 1 patch DAILY TDERMAL 10/01/16 09:00 10/31/16 08:59 10/03/16 08:23 Ondansetron HCl (Zofran) 4 mg Q6H PRN IVP Nausea & Vomiting 09/30/16 19:30 10/30/16 19:29 Pantoprazole (Protonix) 40 mg EVERY 12 HOURS ORAL 10/01/16 21:00 10/31/16 20:59 10/03/16 08:23 Polyethylene Glycol (Miralax) 17 gm DAILYPRN PRN ORAL Constipation 09/30/16 19:30 10/30/16 19:29 10/02/16 08:28 Sodium Chloride (Sodium Chloride 1000ml bag) 1,000 ml @ 500 mls/hr Q2H PRN IVLG sbp<90 during hd 10/01/16 06:00 10/31/16 05:59 Temazepam (Restoril) 15 mg HSPRN PRN ORAL Insomnia 09/30/16 19:30 10/07/16 19:29 Tramadol HCl (Ultram) 50 mg Q4H PRN ORAL moderate pain 10/01/16 08:15 10/08/16 08:14 10/02/16 08:29 Vitamin B Complex/ Vit C/Folic Acid (Nephrovite) 1 tab DAILY ORAL 10/01/16 09:00 10/31/16 08:59 10/03/16 08:24 Jevon ([facility])Kate NP Oct 03, 2016 14:23
--- NOTE | 2016-10-03 15:33 | General Progress Note ---
Assessment/Plan Status: stable Assessment/Plan Status: (1) ESRD (end stage renal disease) on dialysis (2) Chest pain (3) Cocaine abuse (4) Anemia in chronic kidney disease (5) ? DVT right UE (6) Cardiomyopathy: Global left ventricular hypokinesis. Worse septal apper akinetic s. Left ventricular ejection fraction estimated to be 30-35 %. Plan: Last HD 10/01 Next HD Vebnous duplex right UE add marcie inhibitors Subjective ROS Limited/Unobtainable: No Constitutional: Reports: malaise, weakness Allergies: Coded Allergies: No Known Allergies (Unverified , 09/28/16) Objective Last 24 Hour Vital Signs Date Time Temp Pulse Resp B/P Pulse Ox O2 Delivery O2 Flow Rate FiO2 10/03/16 11:41 97.2 77 19 110/61 95 Room Air 10/03/16 09:00 70 17 101/59 96 Room Air 10/03/16 08:23 46 117/63 10/03/16 08:16 97.2 46 20 117/63 95 Room Air 10/03/16 07:20 68 18 Room Air 21 10/03/16 04:00 97.0 76 16 109/56 100 Room Air 10/03/16 00:00 96.9 78 17 107/47 98 Room Air 10/02/16 20:00 96.9 47 18 111/58 100 Room Air 10/02/16 19:50 75 18 Room Air 21 10/02/16 16:19 97.8 77 14 107/56 92 Room Air Intake and Output 10/02/16 10/03/16 18:59 06:59 Intake Total 800 ml 570 ml Balance 800 ml 570 ml Intake Oral 800 ml 280 ml Blood Product 290 ml # Voids 2 2 # Bowel Movements 3 2 Laboratory Tests 10/03/16 06:10: Stool Occult Blood [Pending] 10/03/16 08:20: White Blood Count 9.0, Red Blood Count 2.71L, Hemoglobin 7.7#L, Hematocrit 23.8# L, Mean Corpuscular Volume 88, Mean Corpuscular Hemoglobin 28.5, Mean Corpuscular Hemoglobin Concent 32.4, Red Cell Distribution Width 17.0H, Platelet Count 263, Mean Platelet Volume 6.8, Neutrophils (%) (Auto) , Lymphocytes (%) (Auto) , Monocytes (%) (Auto) , Eosinophils (%) (Auto) , Basophils (%) (Auto) , Differential Total Cells Counted 100, Neutrophils % ( Manual) 83H, Lymphocytes % (Manual) 7L, Monocytes % (Manual) 5, Eosinophils % ( Manual) 3, Basophils % (Manual) 2, Band Neutrophils 0, Platelet Estimate Adequate, Platelet Morphology Normal, Polychromasia 1+, Hypochromasia 3+, Anisocytosis 1+, Spherocytes 1+, Prothrombin Time 13.2H, Prothromb Time International Ratio 1.3H, Activated Partial Thromboplast Time 29, Sodium Level 136, Potassium Level 4.0, Chloride Level 93L, Carbon Dioxide Level 24, Anion Gap 19H, Blood Urea Nitrogen 98H, Creatinine 4.3H, Estimat Glomerular Filtration Rate 17.1, Glucose Level 91, Uric Acid 5.7, Calcium Level 9.0, Phosphorus Level 4.1, Total Bilirubin 1.5H, Direct Bilirubin 0.9H, Aspartate Amino Transf (AST/SGOT) 21, Alanine Aminotransferase (ALT/SGPT) 6, Alkaline Phosphatase 97, Pro-B-Type Natriuretic Peptide > 27180C, Total Protein 6.1L, Albumin 3.0L, Globulin 3.1, Albumin/Globulin Ratio 0.9L Height (Feet): 5 Height (Inches): 2.00 Weight (Pounds): 180 General Appearance: no apparent distress Objective no change in PE KALEY RIOS Oct 03, 2016 15:33
--- NOTE | 2016-10-03 16:42 | Infectious Diseases Prog Note ---
Assessment/Plan Problems: (1) Colonization with VRE (vancomycin-resistant enterococcus) Assessment & Plan: keep in contact isolation (2) ESRD (end stage renal disease) on dialysis Assessment & Plan: continue HD as per renal. (3) Cocaine abuse Assessment & Plan: recommend counseling and rehab (4) Chest pain Assessment & Plan: evaluation as per primary (5) Anemia in chronic kidney disease Assessment & Plan: stable, monitor H/H transfuse as needed Subjective Constitutional: Reports: no symptoms HEENT: Reports: no symptoms Respiratory: Reports: no symptoms Breasts: Reports: no symptoms Cardiovascular: Reports: no symptoms Gastrointestinal/Abdominal: Reports: no symptoms Genitourinary: Reports: no symptoms Neurologic: Reports: no symptoms Psychiatric: Reports: no symptoms Skin: Reports: no symptoms Endocrine: Reports: no symptoms Hematologic: Reports: no symptoms Allergies: Coded Allergies: No Known Allergies (Unverified , 09/28/16) Subjective he was doing well today, denied any symptoms. Objective Vital Signs Last 24 Hour Vital Signs Date Time Temp Pulse Resp B/P Pulse Ox O2 Delivery O2 Flow Rate FiO2 10/03/16 11:41 97.2 77 19 110/61 95 Room Air 10/03/16 09:00 70 17 101/59 96 Room Air 10/03/16 08:23 46 117/63 10/03/16 08:16 97.2 46 20 117/63 95 Room Air 10/03/16 07:20 68 18 Room Air 21 10/03/16 04:00 97.0 76 16 109/56 100 Room Air 10/03/16 00:00 96.9 78 17 107/47 98 Room Air 10/02/16 20:00 96.9 47 18 111/58 100 Room Air 10/02/16 19:50 75 18 Room Air 21 Height (Feet): 5 Height (Inches): 2.00 Weight (Pounds): 180 General Appearance: WD/WN, no acute distress HEENT: normocephalic, atraumatic, anicteric, mucous membranes moist, PERRL Respiratory/Chest: chest wall non-tender, lungs clear, normal breath sounds, no respiratory distress, no accessory muscle use Cardiovascular: normal peripheral pulses, normal rate, regular rhythm, no gallop/murmur Abdomen: normal bowel sounds, soft, non tender, no organomegaly, non distended , no mass, no scars Skin: no rash, no lesions, no ulcers Laboratory Tests Test 10/03/16 06:10 10/03/16 08:20 Stool Occult Blood Pending White Blood Count 9.0 K/UL (4.8-10.8) Red Blood Count 2.71 M/UL (4.70-6.10) L Hemoglobin 7.7 G/DL (14.2-18.0) #L Hematocrit 23.8 % (42.0-52.0) #L Mean Corpuscular Volume 88 FL (80-99) Mean Corpuscular Hemoglobin 28.5 PG (27.0-31.0) Mean Corpuscular Hemoglobin Concent 32.4 G/DL (32.0-36.0) Red Cell Distribution Width 17.0 % (11.6-14.8) H Platelet Count 263 K/UL (150-450) Mean Platelet Volume 6.8 FL (6.5-10.1) Neutrophils (%) (Auto) % (45.0-75.0) Lymphocytes (%) (Auto) % (20.0-45.0) Monocytes (%) (Auto) % (1.0-10.0) Eosinophils (%) (Auto) % (0.0-3.0) Basophils (%) (Auto) % (0.0-2.0) Differential Total Cells Counted 100 Neutrophils % (Manual) 83 % (45-75) H Lymphocytes % (Manual) 7 % (20-45) L Monocytes % (Manual) 5 % (1-10) Eosinophils % (Manual) 3 % (0-3) Basophils % (Manual) 2 % (0-2) Band Neutrophils 0 % (0-8) Platelet Estimate Adequate Platelet Morphology Normal Polychromasia 1+ Hypochromasia 3+ Anisocytosis 1+ Spherocytes 1+ Prothrombin Time 13.2 SEC (9.30-11.50) H Prothromb Time International Ratio 1.3 (0.9-1.1) H Activated Partial Thromboplast Time 29 SEC (23-33) Sodium Level 136 mEQ/L (135-145) Potassium Level 4.0 mEQ/L (3.4-4.9) Chloride Level 93 mEQ/L (98-107) L Carbon Dioxide Level 24 mEQ/L (20-30) Anion Gap 19 (5-15) H Blood Urea Nitrogen 98 mg/dL (7-23) H Creatinine 4.3 mg/dL (0.7-1.2) H Estimat Glomerular Filtration Rate 17.1 mL/min (>60) Glucose Level 91 mg/dL (74-106) Uric Acid 5.7 mg/dL (3.0-7.5) Calcium Level 9.0 mg/dL (8.6-10.2) Phosphorus Level 4.1 mg/dL (2.5-4.8) Total Bilirubin 1.5 mg/dL (0.0-1.2) H Direct Bilirubin 0.9 mg/dL (0.1-0.3) H Aspartate Amino Transf (AST/SGOT) 21 U/L (5-40) Alanine Aminotransferase (ALT/SGPT) 6 U/L (3-41) Alkaline Phosphatase 97 U/L (40-129) Pro-B-Type Natriuretic Peptide > 73723 pg/mL (0-125) H Total Protein 6.1 g/dL (6.6-8.7) L Albumin 3.0 g/dL (3.5-5.2) L Globulin 3.1 g/dL Albumin/Globulin Ratio 0.9 (1.0-2.7) L Current Medications Medications (Trade) Dose Ordered Sig/Lillian Route PRN Reason Start Time Stop Time Status Last Admin Dose Admin Acetaminophen (Tylenol) 650 mg Q4H PRN ORAL Fever 09/30/16 19:30 10/30/16 19:29 Albuterol/ Ipratropium (DuoNeb 0.5-3(2.5)mg/3ml) 3 ml Q4H PRN HHN Shortness of Breath 09/30/16 21:00 10/05/16 20:59 Dextrose (Dextrose 50%) STAT PRN IV Hypoglycemia 09/30/16 19:30 10/30/16 19:29 Epoetin Joseph (Procrit (for ESRD on dialysis)) 5,000 units MON-WED-FRI SUBQ 10/01/16 21:00 10/31/16 20:59 10/01/16 21:41 Insulin Aspart (NovoLOG) BEFORE MEALS AND HS SUBQ 09/30/16 21:00 10/30/16 20:59 Lidocaine (Lidoderm 5% PATCH) 1 patch DAILY TDERMAL 10/01/16 09:00 10/31/16 08:59 10/03/16 08:23 Lisinopril (Zestril) 2.5 mg Q12HR ORAL 10/03/16 21:00 11/02/16 20:59 Ondansetron HCl (Zofran) 4 mg Q6H PRN IVP Nausea & Vomiting 09/30/16 19:30 10/30/16 19:29 Pantoprazole (Protonix) 40 mg EVERY 12 HOURS ORAL 10/01/16 21:00 10/31/16 20:59 10/03/16 08:23 Polyethylene Glycol (Miralax) 17 gm DAILYPRN PRN ORAL Constipation 09/30/16 19:30 10/30/16 19:29 10/02/16 08:28 Sodium Chloride (Sodium Chloride 1000ml bag) 1,000 ml @ 500 mls/hr Q2H PRN IVLG sbp<90 during hd 10/01/16 06:00 10/31/16 05:59 Temazepam (Restoril) 15 mg HSPRN PRN ORAL Insomnia 09/30/16 19:30 10/07/16 19:29 Tramadol HCl (Ultram) 50 mg Q4H PRN ORAL moderate pain 10/01/16 08:15 10/08/16 08:14 10/02/16 08:29 Vitamin B Complex/ Vit C/Folic Acid (Nephrovite) 1 tab DAILY ORAL 10/01/16 09:00 10/31/16 08:59 10/03/16 08:24 Ivania Bhardwaj M.D. Oct 03, 2016 16:42
[2016-10-03] MEDS: traMADol 50mg tab ORAL PRN (18:44)
[2016-10-03] MEDS: Lisinopril 2.5mg tab ORAL SCH (21:09)
[2016-10-04] VITALS (9 sets, daily range): BP systolic 100–165; BP diastolic 60–84
[2016-10-04] MEDS: traMADol 50mg tab ORAL PRN ×2 (05:55→17:02)
[2016-10-04] MEDS: NovoLOG Insulin Flexpen SUBQ SCH ×4 (06:30→20:42)
--- NOTE | 2016-10-04 08:15 | General Progress Note ---
Assessment/Plan Assessment/Plan (1) Cocaine abuse (2) Chest pain (3) CHF (4) ESRD on Hemodialysis (5) Lumbar sprain s/p fall Pt will be continued on Lidoderm patch and tramadol. Pt was d/w Dr. Rodriguez and he concurred. Subjective Date patient seen: Oct 04, 2016 Time patient seen: 07:00 - am Allergies: Coded Allergies: No Known Allergies (Unverified , 09/28/16) Subjective REVIEW OF SYSTEMS: Denies rash, fever, chills, sweating, dizziness, drowsiness, blurred vision, sore throat, or change in weight. No nausea, vomiting, diarrhea, or blood in the stool or urine. No bowel or bladder incontinence. No dysuria. c/o back pain SUBJECTIVE: He continues to have pain with movement which he rates a 6/10 reduced to a 4/10 on the the tramadol. Objective Last 24 Hour Vital Signs Date Time Temp Pulse Resp B/P Pulse Ox O2 Delivery O2 Flow Rate FiO2 10/04/16 08:00 97.6 63 17 100/63 97 Room Air 10/04/16 07:30 80 18 Room Air 10/04/16 04:00 97.0 84 20 124/77 97 Room Air 10/04/16 00:00 97.2 84 20 129/80 96 Room Air 10/03/16 21:09 131/69 10/03/16 19:43 97.8 10/03/16 19:00 73 16 Room Air 21 10/03/16 19:00 96.1 79 18 131/69 Room Air 10/03/16 16:35 97.8 73 18 135/70 95 Room Air 10/03/16 11:41 97.2 77 19 110/61 95 Room Air 10/03/16 09:00 70 17 101/59 96 Room Air 10/03/16 08:23 46 117/63 10/03/16 08:16 97.2 46 20 117/63 95 Room Air Intake and Output 10/03/16 10/04/16 19:00 07:00 Intake Total 710 ml 240 ml Output Total 100 ml 50 ml Balance 610 ml 190 ml Intake Oral 360 ml 240 ml Blood Product 350 ml Output Urine Total 100 ml 50 ml # Voids 1 # Bowel Movements 2 1 Laboratory Tests 10/03/16 08:20: White Blood Count 9.0, Red Blood Count 2.71L, Hemoglobin 7.7#L, Hematocrit 23.8# L, Mean Corpuscular Volume 88, Mean Corpuscular Hemoglobin 28.5, Mean Corpuscular Hemoglobin Concent 32.4, Red Cell Distribution Width 17.0H, Platelet Count 263, Mean Platelet Volume 6.8, Neutrophils (%) (Auto) , Lymphocytes (%) (Auto) , Monocytes (%) (Auto) , Eosinophils (%) (Auto) , Basophils (%) (Auto) , Differential Total Cells Counted 100, Neutrophils % ( Manual) 83H, Lymphocytes % (Manual) 7L, Monocytes % (Manual) 5, Eosinophils % ( Manual) 3, Basophils % (Manual) 2, Band Neutrophils 0, Platelet Estimate Adequate, Platelet Morphology Normal, Polychromasia 1+, Hypochromasia 3+, Anisocytosis 1+, Spherocytes 1+, Prothrombin Time 13.2H, Prothromb Time International Ratio 1.3H, Activated Partial Thromboplast Time 29, Sodium Level 136, Potassium Level 4.0, Chloride Level 93L, Carbon Dioxide Level 24, Anion Gap 19H, Blood Urea Nitrogen 98H, Creatinine 4.3H, Estimat Glomerular Filtration Rate 17.1, Glucose Level 91, Uric Acid 5.7, Calcium Level 9.0, Phosphorus Level 4.1, Total Bilirubin 1.5H, Direct Bilirubin 0.9H, Aspartate Amino Transf (AST/SGOT) 21, Alanine Aminotransferase (ALT/SGPT) 6, Alkaline Phosphatase 97, Pro-B-Type Natriuretic Peptide > 29673I, Total Protein 6.1L, Albumin 3.0L, Globulin 3.1, Albumin/Globulin Ratio 0.9L 10/04/16 01:00: Stool Occult Blood Positive Height (Feet): 5 Height (Inches): 2.00 Weight (Pounds): 180 Objective PHYSICAL EXAMINATION: GENERAL: Alert, awake, and oriented. HEENT: PERRLA. NECK: Range of motion is full in all directions. No tenderness to paracervical muscles. No adenopathy. LUNGS: Decreased breath sounds bilaterally. HEART: S1 and S2, regular. ABDOMEN: Obese. BACK: Range of motion is decreased in flexion and extension with tenderness to paraspinous and trapezius muscles. EXTREMITIES: No cyanosis, no clubbing, edema noted on RUE. NEURO: No changes. Procedure: XRAY L Spine Min 4v Impression: No acute osseous abnormality. ARRON EDWARD Oct 04, 2016 08:15
--- NOTE | 2016-10-04 08:31 | General Progress Note ---
Assessment/Plan Problem List: (1) GIB (gastrointestinal bleeding) ICD Codes: K92.2 - Gastrointestinal hemorrhage, unspecified SNOMED: 94320800 (2) Cocaine abuse ICD Codes: F14.10 - Cocaine abuse, uncomplicated SNOMED: 87170912, 237065052 (3) ESRD (end stage renal disease) on dialysis ICD Codes: N18.6 - End stage renal disease; Z99.2 - Dependence on renal dialysis SNOMED: 273084828 (4) Anemia in chronic kidney disease ICD Codes: N18.9 - Chronic kidney disease, unspecified; D63.1 - Anemia in chronic kidney disease SNOMED: 729740121, 093366526 Assessment/Plan iv ppi fu labs prn blood transfusion EGD in AM no GI team available for EGD today Subjective ROS Limited/Unobtainable: Yes Constitutional: Reports: no symptoms HEENT: Reports: no symptoms Cardiovascular: Reports: no symptoms Respiratory: Reports: no symptoms Gastrointestinal/Abdominal: Reports: black stools Genitourinary: Reports: no symptoms 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: Reports: no symptoms Endocrine: Reports: no symptoms Allergies: Coded Allergies: No Known Allergies (Unverified , 09/28/16) Objective Last 24 Hour Vital Signs Date Time Temp Pulse Resp B/P Pulse Ox O2 Delivery O2 Flow Rate FiO2 10/04/16 08:00 97.6 63 17 100/63 97 Room Air 10/04/16 07:30 80 18 Room Air 10/04/16 04:00 97.0 84 20 124/77 97 Room Air 10/04/16 00:00 97.2 84 20 129/80 96 Room Air 10/03/16 21:09 131/69 10/03/16 19:43 97.8 10/03/16 19:00 73 16 Room Air 21 10/03/16 19:00 96.1 79 18 131/69 Room Air 10/03/16 16:35 97.8 73 18 135/70 95 Room Air 10/03/16 11:41 97.2 77 19 110/61 95 Room Air 10/03/16 09:00 70 17 101/59 96 Room Air Intake and Output 10/03/16 10/04/16 19:00 07:00 Intake Total 710 ml 240 ml Output Total 100 ml 50 ml Balance 610 ml 190 ml Intake Oral 360 ml 240 ml Blood Product 350 ml Output Urine Total 100 ml 50 ml # Voids 1 # Bowel Movements 2 1 Laboratory Tests 10/04/16 01:00: Stool Occult Blood Positive Height (Feet): 5 Height (Inches): 2.00 Weight (Pounds): 180 General Appearance: alert EENT: normal ENT inspection Neck: supple Cardiovascular: normal rate Respiratory/Chest: decreased breath sounds Abdomen: normal bowel sounds, non tender, soft Extremities: non-tender JEANETTE WILLETT Oct 04, 2016 08:31
[2016-10-04] MEDS: Nephrovite tab ORAL SCH (08:40)
[2016-10-04] MEDS: Lisinopril 2.5mg tab ORAL SCH ×2 (08:41→21:13)
[2016-10-04] MEDS: Pantoprazole Inj IVP SCH ×2 (08:42→21:14)
[2016-10-04 10:25] LABS: BASOPHILS % (AUTO) 1.5 % (0.0-2.0); LYMPHOCYTES % (AUTO) 10.6 % (20.0-45.0); MEAN CORPUSCULAR HEMOGLOBIN 28.6 PG (27.0-31.0); MEAN CORPUSCULAR HGB CONC 32.8 G/DL (32.0-36.0); MEAN CORPUSCULAR VOLUME 87 FL (80-99); MEAN PLATELET VOLUME 7.9 FL (6.5-10.1); MONOCYTES % (AUTO) 7.7 % (1.0-10.0); NEUTROPHILS % (AUTO) 79.1 % (45.0-75.0); PLATELET COUNT 290 K/UL (150-450); RED BLOOD COUNT 3.27 M/UL (4.70-6.10); RED CELL DISTRIBUTION WIDTH 16.9 % (11.6-14.8); WHITE BLOOD COUNT 8.5 K/UL (4.8-10.8)
--- NOTE | 2016-10-04 12:22 | General Progress Note ---
Assessment/Plan Status: stable Assessment/Plan Status: (1) ESRD (end stage renal disease) on dialysis (2) Chest pain (3) Cocaine abuse (4) Anemia in chronic kidney disease (5) ? DVT right UE (6) Cardiomyopathy: Global left ventricular hypokinesis. Worse septal apper akinetic s. Left ventricular ejection fraction estimated to be 30-35 %. Plan: Last HD 10/01 Next HD done Vebnous duplex right UE add marcie inhibitors- resume norvasc per consultants Subjective ROS Limited/Unobtainable: No Constitutional: Reports: malaise, weakness Allergies: Coded Allergies: No Known Allergies (Unverified , 09/28/16) Objective Last 24 Hour Vital Signs Date Time Temp Pulse Resp B/P Pulse Ox O2 Delivery O2 Flow Rate FiO2 10/04/16 11:27 97.3 76 20 158/81 96 Room Air 10/04/16 08:52 97.0 80 20 113/60 95 Room Air 10/04/16 08:20 97.3 66 18 165/84 96 Room Air 10/04/16 08:20 Room Air 10/04/16 08:00 97.6 63 17 100/63 97 Room Air 10/04/16 07:30 80 18 Room Air 21 10/04/16 04:00 97.0 84 20 124/77 97 Room Air 10/04/16 00:00 97.2 84 20 129/80 96 Room Air 10/03/16 21:09 131/69 10/03/16 19:43 97.8 10/03/16 19:00 73 16 Room Air 21 10/03/16 19:00 96.1 79 18 131/69 Room Air 10/03/16 16:35 97.8 73 18 135/70 95 Room Air Intake and Output 10/03/16 10/04/16 19:00 07:00 Intake Total 710 ml 240 ml Output Total 100 ml 50 ml Balance 610 ml 190 ml Intake Oral 360 ml 240 ml Blood Product 350 ml Output Urine Total 100 ml 50 ml # Voids 1 # Bowel Movements 2 1 Laboratory Tests 10/04/16 01:00: Stool Occult Blood Positive 10/04/16 09:00: White Blood Count 8.5, Red Blood Count 3.27L, Hemoglobin 9.3L, Hematocrit 28.5L , Mean Corpuscular Volume 87, Mean Corpuscular Hemoglobin 28.6, Mean Corpuscular Hemoglobin Concent 32.8, Red Cell Distribution Width 16.9H, Platelet Count 290, Mean Platelet Volume 7.9, Neutrophils (%) (Auto) 79.1H, Lymphocytes (%) (Auto) 10.6L, Monocytes (%) (Auto) 7.7, Eosinophils (%) (Auto) 1.0, Basophils (%) (Auto) 1.5 Height (Feet): 5 Height (Inches): 2.00 Weight (Pounds): 180 General Appearance: no apparent distress Objective no change in PE KALEY RIOS Oct 04, 2016 12:22
--- NOTE | 2016-10-04 14:19 | Pulmonology Progress Note ---
Assessment/Plan Assessment/Plan ASSESSMENT chest pain ( after cocaine abuse) 2 to vasospasm cardiomyopathy moderate pulmonary HTN severe MR severe TR acute anemia, s/p blood transfusion GI bleeding ESRD, on HD HTN DM cocaine abuse PLAN OF CARE [facility] floor serial troponin negative, cardio follows, ruled out for ACS CP after cocaine abuse due to vasospasm -as per cardio, ECHO with EF 30-35%, severe MR and TR, RVSP of 50 c/w moderate pulmonary HTN BP management with CCB ,avoid BB due to cocaine use BS management with SS of insulin stool OB + x 3 GI follows EGD in am CL diet for now PPI heme follows stool OB x 2 ( #1 -positive) HD as per nephro primary counselor on avoidance of cocaine DVT, GI prophylaxis case discussed and evaluated by supervising physician Subjective Allergies: Coded Allergies: No Known Allergies (Unverified , 09/28/16) Subjective HH up to 9.3/28.5 afebrile, no leucocytosis on RA no signs of respiratory distress denies dizziness, blackout no SOB, no chest pain Objective Last 24 Hour Vital Signs Date Time Temp Pulse Resp B/P Pulse Ox O2 Delivery O2 Flow Rate FiO2 10/04/16 12:37 76 158/81 10/04/16 11:30 97.2 77 18 153/84 Room Air 10/04/16 11:30 Room Air 10/04/16 11:27 97.3 76 20 158/81 96 Room Air 10/04/16 08:52 97.0 80 20 113/60 95 Room Air 10/04/16 08:20 97.3 66 18 165/84 96 Room Air 10/04/16 08:20 Room Air 10/04/16 08:00 97.6 63 17 100/63 97 Room Air 10/04/16 07:30 80 18 Room Air 21 10/04/16 04:00 97.0 84 20 124/77 97 Room Air 10/04/16 00:00 97.2 84 20 129/80 96 Room Air 10/03/16 21:09 131/69 10/03/16 19:43 97.8 10/03/16 19:00 73 16 Room Air 21 10/03/16 19:00 96.1 79 18 131/69 Room Air 10/03/16 16:35 97.8 73 18 135/70 95 Room Air Intake and Output 10/03/16 10/04/16 19:00 07:00 Intake Total 710 ml 240 ml Output Total 100 ml 50 ml Balance 610 ml 190 ml Intake Oral 360 ml 240 ml Blood Product 350 ml Output Urine Total 100 ml 50 ml # Voids 1 # Bowel Movements 2 1 Objective General Appearance: WD/WN, no acute distress HEENT: normocephalic, atraumatic, anicteric Respiratory/Chest: chest wall non-tender, lungs clear - with moderate air entry Cardiovascular: normal rate, regular rhythm Abdomen: normal bowel sounds, soft, non tender Extremities: no edema, pedal pulses normal 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: no motor/sensory deficits, alert, oriented x 3, responsive Musculoskeletal: normal muscle bulk Laboratory Tests 10/04/16 01:00: Stool Occult Blood Positive 10/04/16 09:00: White Blood Count 8.5, Red Blood Count 3.27L, Hemoglobin 9.3L, Hematocrit 28.5L , Mean Corpuscular Volume 87, Mean Corpuscular Hemoglobin 28.6, Mean Corpuscular Hemoglobin Concent 32.8, Red Cell Distribution Width 16.9H, Platelet Count 290, Mean Platelet Volume 7.9, Neutrophils (%) (Auto) 79.1H, Lymphocytes (%) (Auto) 10.6L, Monocytes (%) (Auto) 7.7, Eosinophils (%) (Auto) 1.0, Basophils (%) (Auto) 1.5 Current Medications Medications (Trade) Dose Ordered Sig/Lillian Route PRN Reason Start Time Stop Time Status Last Admin Dose Admin Acetaminophen (Tylenol) 650 mg Q4H PRN ORAL Fever 09/30/16 19:30 10/30/16 19:29 Albuterol/ Ipratropium (DuoNeb 0.5-3(2.5)mg/3ml) 3 ml Q4H PRN HHN Shortness of Breath 09/30/16 21:00 10/05/16 20:59 Amlodipine Besylate (Norvasc) 5 mg DAILY ORAL 10/04/16 13:00 11/03/16 12:59 10/04/16 12:37 Dextrose (Dextrose 50%) STAT PRN IV Hypoglycemia 09/30/16 19:30 10/30/16 19:29 Epoetin Joseph (Procrit (for ESRD on dialysis)) 5,000 units TUE-WED-FRI SUBQ 10/01/16 21:00 10/31/16 20:59 10/01/16 21:41 Insulin Aspart (NovoLOG) BEFORE MEALS AND HS SUBQ 09/30/16 21:00 10/30/16 20:59 Lidocaine (Lidoderm 5% PATCH) 1 patch DAILY TDERMAL 10/01/16 09:00 10/31/16 08:59 10/04/16 08:40 Lisinopril (Zestril) 2.5 mg Q12HR ORAL 10/03/16 21:00 11/02/16 20:59 10/03/16 21:09 Ondansetron HCl (Zofran) 4 mg Q6H PRN IVP Nausea & Vomiting 09/30/16 19:30 10/30/16 19:29 Pantoprazole (Protonix) 40 mg EVERY 12 HOURS IVP 10/04/16 09:00 11/03/16 08:59 Polyethylene Glycol (Miralax) 17 gm DAILYPRN PRN ORAL Constipation 09/30/16 19:30 10/30/16 19:29 10/02/16 08:28 Sodium Chloride (Sodium Chloride 1000ml bag) 1,000 ml @ 500 mls/hr Q2H PRN IVLG sbp<90 during hd 10/01/16 06:00 10/31/16 05:59 Temazepam (Restoril) 15 mg HSPRN PRN ORAL Insomnia 09/30/16 19:30 10/07/16 19:29 Tramadol HCl (Ultram) 50 mg Q4H PRN ORAL moderate pain 10/01/16 08:15 10/08/16 08:14 10/04/16 05:55 Vitamin B Complex/ Vit C/Folic Acid (Nephrovite) 1 tab DAILY ORAL 10/01/16 09:00 10/31/16 08:59 10/04/16 08:40 Jevon ([facility])Kate NP Oct 04, 2016 14:19
[2016-10-04] MEDS ORDERED: DuoNeb 0.5-3(2.5)mg/3ml neb HHN PRN (15:00)
--- NOTE | 2016-10-04 15:12 | General Progress Note ---
Assessment/Plan Problem List: (1) Cocaine abuse ICD Codes: F14.10 - Cocaine abuse, uncomplicated SNOMED: 93120692, [id number] (2) Chest pain ICD Codes: R07.9 - Chest pain, unspecified SNOMED: 57656776, [id number] Qualifiers: Qualified Codes: R07.9 - Chest pain, unspecified Status: progressing Assessment/Plan on hd s/p transfusion consulted dr han upton for anemia sepsis chest pain has bleeding is getting endoscopy Subjective ROS Limited/Unobtainable: Yes Allergies: Coded Allergies: No Known Allergies (Unverified , 09/28/16) Objective Last 24 Hour Vital Signs Date Time Temp Pulse Resp B/P Pulse Ox O2 Delivery O2 Flow Rate FiO2 10/04/16 12:37 76 158/81 10/04/16 11:30 97.2 77 18 153/84 Room Air 10/04/16 11:30 Room Air 10/04/16 11:27 97.3 76 20 158/81 96 Room Air 10/04/16 08:52 97.0 80 20 113/60 95 Room Air 10/04/16 08:20 97.3 66 18 165/84 96 Room Air 10/04/16 08:20 Room Air 10/04/16 08:00 97.6 63 17 100/63 97 Room Air 10/04/16 07:30 80 18 Room Air 21 10/04/16 04:00 97.0 84 20 124/77 97 Room Air 10/04/16 00:00 97.2 84 20 129/80 96 Room Air 10/03/16 21:09 131/69 10/03/16 19:43 97.8 10/03/16 19:00 73 16 Room Air 21 10/03/16 19:00 96.1 79 18 131/69 Room Air 10/03/16 16:35 97.8 73 18 135/70 95 Room Air Intake and Output 10/03/16 10/04/16 19:00 07:00 Intake Total 710 ml 240 ml Output Total 100 ml 50 ml Balance 610 ml 190 ml Intake Oral 360 ml 240 ml Blood Product 350 ml Output Urine Total 100 ml 50 ml # Voids 1 # Bowel Movements 2 1 Laboratory Tests 10/04/16 01:00: Stool Occult Blood Positive 10/04/16 09:00: White Blood Count 8.5, Red Blood Count 3.27L, Hemoglobin 9.3L, Hematocrit 28.5L , Mean Corpuscular Volume 87, Mean Corpuscular Hemoglobin 28.6, Mean Corpuscular Hemoglobin Concent 32.8, Red Cell Distribution Width 16.9H, Platelet Count 290, Mean Platelet Volume 7.9, Neutrophils (%) (Auto) 79.1H, Lymphocytes (%) (Auto) 10.6L, Monocytes (%) (Auto) 7.7, Eosinophils (%) (Auto) 1.0, Basophils (%) (Auto) 1.5 Height (Feet): 5 Height (Inches): 2.00 Weight (Pounds): 180 General Appearance: mild distress Neck: supple Cardiovascular: normal rate Respiratory/Chest: lungs clear Liu Elizondo MD Oct 04, 2016 15:12
--- NOTE | 2016-10-04 16:59 | General Progress Note ---
Assessment/Plan Assessment/Plan ASSESSMENT: 1. Anemia secondary to end-stage renal disease. Ferritin is 711. On epogen 2. Acute drop in hgb, consider GI bleed, being seen by GI 3. Thrombocytopenia potentially secondary to underlying infection. hep and hiv - , now better 4. Coagulopathy INR is 1.4 5. Diabetes mellitus. 6. End-stage renal disease on hemodialysis. 7. Cocaine use history. RECOMMENDATIONS: 1. Monitor counts. 2. Transfuse if hemoglobin less than 7.5. 3. Continue epogen 4. Followup GI recs 5. Ultrasound of the abdomen reviewed 6. Gi recs regarding endoscopy 7. Anemia workup has been reviewed 8. Followup on Nephrology, Pulmonary, and Cardiology recommendations 9. DVT prophylaxis with scds 10. GI prophylaxis prn 11. Pain control. 12. Discussed with staff. Thank you, Hugh Lopez MD Subjective Constitutional: Reports: no symptoms HEENT: Reports: no symptoms Cardiovascular: Reports: no symptoms Respiratory: Reports: no symptoms Gastrointestinal/Abdominal: Reports: poor appetite Genitourinary: Reports: no symptoms 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: Reports: no symptoms Endocrine: Reports: no symptoms Hematologic/Lymphatic: Reports: anemia Allergies: Coded Allergies: No Known Allergies (Unverified , 09/28/16) Subjective H/H better, s/p transfusion Objective Last 24 Hour Vital Signs Date Time Temp Pulse Resp B/P Pulse Ox O2 Delivery O2 Flow Rate FiO2 10/04/16 12:37 76 158/81 10/04/16 11:30 97.2 77 18 153/84 Room Air 10/04/16 11:30 Room Air 10/04/16 11:27 97.3 76 20 158/81 96 Room Air 10/04/16 08:52 97.0 80 20 113/60 95 Room Air 10/04/16 08:20 97.3 66 18 165/84 96 Room Air 10/04/16 08:20 Room Air 10/04/16 08:00 97.6 63 17 100/63 97 Room Air 10/04/16 07:30 80 18 Room Air 21 10/04/16 04:00 97.0 84 20 124/77 97 Room Air 10/04/16 00:00 97.2 84 20 129/80 96 Room Air 10/03/16 21:09 131/69 10/03/16 19:43 97.8 10/03/16 19:00 73 16 Room Air 21 10/03/16 19:00 96.1 79 18 131/69 Room Air Intake and Output 10/03/16 10/04/16 19:00 07:00 Intake Total 710 ml 240 ml Output Total 100 ml 50 ml Balance 610 ml 190 ml Intake Oral 360 ml 240 ml Blood Product 350 ml Output Urine Total 100 ml 50 ml # Voids 1 # Bowel Movements 2 1 Laboratory Tests 10/04/16 01:00: Stool Occult Blood Positive 10/04/16 09:00: White Blood Count 8.5, Red Blood Count 3.27L, Hemoglobin 9.3L, Hematocrit 28.5L , Mean Corpuscular Volume 87, Mean Corpuscular Hemoglobin 28.6, Mean Corpuscular Hemoglobin Concent 32.8, Red Cell Distribution Width 16.9H, Platelet Count 290, Mean Platelet Volume 7.9, Neutrophils (%) (Auto) 79.1H, Lymphocytes (%) (Auto) 10.6L, Monocytes (%) (Auto) 7.7, Eosinophils (%) (Auto) 1.0, Basophils (%) (Auto) 1.5 Height (Feet): 5 Height (Inches): 2.00 Weight (Pounds): 180 General Appearance: no apparent distress EENT: normal ENT inspection Neck: supple Cardiovascular: regular rhythm Respiratory/Chest: lungs clear Abdomen: non tender Extremities: non-tender Edema: 1+ Leg (L), 1+ Leg (R) Edema: mild edema Neurologic: alert Skin: warm/dry Hugh Lopez Oct 04, 2016 16:59
--- NOTE | 2016-10-04 17:47 | Cardiac Electrophysiology PN ---
Assessment/Plan Status Narrative Moderate left ventricular enlargement. Global left ventricular hypokinesis. Worse septal apper akinetic s. Left ventricular ejection fraction estimated to be 30-35 %. No evidence of left ventricular hypertrophy. No evidence of pericardial fat or effusion. Severe right atrial enlargement by 2D. Mild right atrial enlargement by 2D. Focal aortic valve sclerosis with adequate cusp excursion Mildly thickened mitral valve leaflets with normal excursion. Mitral annulus and aortic root calcification. Pulmonic valve is well visualized. Normal tricuspid valve structure. IVC dilated at 2.7cm no physiologic collapse with respiration.RA pressure of 20mmHg. Assessment/Plan 1. Chest pain after using cocaine. This was likely due to vasospasm. The patient was ruled out for myocardial infarction. Avoid beta-david in view of the patient's cocaine use. 2. CHF with EF 30-35%.Avoid Betablocker for cocaine use. Start Hydralazine and isordil. 3. History of hypertension. Start Hydralazine and isordil.DC Norvasc. 4. End-stage renal disease, on hemodialysis. 5. Substance abuse with cocaine. 6. Anemia due to GI bleed. Stool OB positive. EGD in AM. 7. Diabetes. ZOHREH RN Subjective Subjective Alert in NAD. No chest pain or SOB. Objective Last 24 Hour Vital Signs Date Time Temp Pulse Resp B/P Pulse Ox O2 Delivery O2 Flow Rate FiO2 10/04/16 16:00 96.9 76 17 113/60 92 Room Air 10/04/16 12:37 76 158/81 10/04/16 11:30 97.2 77 18 153/84 Room Air 10/04/16 11:30 Room Air 10/04/16 11:27 97.3 76 20 158/81 96 Room Air 10/04/16 08:52 97.0 80 20 113/60 95 Room Air 10/04/16 08:20 97.3 66 18 165/84 96 Room Air 10/04/16 08:20 Room Air 10/04/16 08:00 97.6 63 17 100/63 97 Room Air 10/04/16 07:30 80 18 Room Air 21 10/04/16 04:00 97.0 84 20 124/77 97 Room Air 10/04/16 00:00 97.2 84 20 129/80 96 Room Air 10/03/16 21:09 131/69 10/03/16 19:43 97.8 10/03/16 19:00 73 16 Room Air 21 10/03/16 19:00 96.1 79 18 131/69 Room Air Intake and Output 10/03/16 10/04/16 19:00 07:00 Intake Total 710 ml 240 ml Output Total 100 ml 50 ml Balance 610 ml 190 ml Intake Oral 360 ml 240 ml Blood Product 350 ml Output Urine Total 100 ml 50 ml # Voids 1 # Bowel Movements 2 1 Laboratory Tests Test 10/04/16 01:00 10/04/16 09:00 Stool Occult Blood Positive (NEGATIVE) White Blood Count 8.5 K/UL (4.8-10.8) Red Blood Count 3.27 M/UL (4.70-6.10) L Hemoglobin 9.3 G/DL (14.2-18.0) L Hematocrit 28.5 % (42.0-52.0) L Mean Corpuscular Volume 87 FL (80-99) Mean Corpuscular Hemoglobin 28.6 PG (27.0-31.0) Mean Corpuscular Hemoglobin Concent 32.8 G/DL (32.0-36.0) Red Cell Distribution Width 16.9 % (11.6-14.8) H Platelet Count 290 K/UL (150-450) Mean Platelet Volume 7.9 FL (6.5-10.1) Neutrophils (%) (Auto) 79.1 % (45.0-75.0) H Lymphocytes (%) (Auto) 10.6 % (20.0-45.0) L Monocytes (%) (Auto) 7.7 % (1.0-10.0) Eosinophils (%) (Auto) 1.0 % (0.0-3.0) Basophils (%) (Auto) 1.5 % (0.0-2.0) Objective HEAD AND NECK: Showed no jugular venous distention or carotid bruits. LUNGS: Clear. CARDIOVASCULAR: Shows regular S1 and S2 with no gallop or murmur. ABDOMEN: Soft and nontender. EXTREMITIES: No pitting edema. He has a dialysis access in the right chest. DILIA GUERRERO Oct 04, 2016 17:47
--- NOTE | 2016-10-04 18:18 | Infectious Diseases Prog Note ---
Assessment/Plan Problems: (1) Colonization with VRE (vancomycin-resistant enterococcus) Assessment & Plan: keep in contact isolation (2) ESRD (end stage renal disease) on dialysis Assessment & Plan: continue HD as per renal. (3) Cocaine abuse Assessment & Plan: recommend counseling and rehab (4) Chest pain Assessment & Plan: evaluation as per primary (5) Anemia in chronic kidney disease Assessment & Plan: stable, monitor H/H transfuse as needed Subjective Constitutional: Reports: no symptoms HEENT: Reports: no symptoms Respiratory: Reports: no symptoms Breasts: Reports: no symptoms Cardiovascular: Reports: no symptoms Gastrointestinal/Abdominal: Reports: no symptoms Genitourinary: Reports: no symptoms Neurologic: Reports: no symptoms Psychiatric: Reports: no symptoms Skin: Reports: no symptoms Endocrine: Reports: no symptoms Allergies: Coded Allergies: No Known Allergies (Unverified , 09/28/16) Subjective he was doing well today, denied any symptoms. Objective Vital Signs Last 24 Hour Vital Signs Date Time Temp Pulse Resp B/P Pulse Ox O2 Delivery O2 Flow Rate FiO2 10/04/16 18:10 97.2 10/04/16 16:00 96.9 76 17 113/60 92 Room Air 10/04/16 12:37 76 158/81 10/04/16 11:30 97.2 77 18 153/84 Room Air 10/04/16 11:30 Room Air 10/04/16 11:27 97.3 76 20 158/81 96 Room Air 10/04/16 08:52 97.0 80 20 113/60 95 Room Air 10/04/16 08:20 97.3 66 18 165/84 96 Room Air 10/04/16 08:20 Room Air 10/04/16 08:00 97.6 63 17 100/63 97 Room Air 10/04/16 07:30 80 18 Room Air 21 10/04/16 04:00 97.0 84 20 124/77 97 Room Air 10/04/16 00:00 97.2 84 20 129/80 96 Room Air 10/03/16 21:09 131/69 10/03/16 19:00 73 16 Room Air 21 10/03/16 19:00 96.1 79 18 131/69 Room Air Height (Feet): 5 Height (Inches): 2.00 Weight (Pounds): 180 General Appearance: WD/WN, no acute distress HEENT: normocephalic, atraumatic, anicteric, mucous membranes moist Respiratory/Chest: chest wall non-tender, lungs clear, normal breath sounds, no respiratory distress, no accessory muscle use Cardiovascular: normal peripheral pulses, normal rate, regular rhythm, no gallop/murmur Abdomen: normal bowel sounds, soft, non tender, no organomegaly, non distended , no mass, no scars Extremities: no cyanosis, no clubbing Skin: no rash, no lesions, no ulcers Laboratory Tests Test 10/04/16 01:00 10/04/16 09:00 Stool Occult Blood Positive (NEGATIVE) White Blood Count 8.5 K/UL (4.8-10.8) Red Blood Count 3.27 M/UL (4.70-6.10) L Hemoglobin 9.3 G/DL (14.2-18.0) L Hematocrit 28.5 % (42.0-52.0) L Mean Corpuscular Volume 87 FL (80-99) Mean Corpuscular Hemoglobin 28.6 PG (27.0-31.0) Mean Corpuscular Hemoglobin Concent 32.8 G/DL (32.0-36.0) Red Cell Distribution Width 16.9 % (11.6-14.8) H Platelet Count 290 K/UL (150-450) Mean Platelet Volume 7.9 FL (6.5-10.1) Neutrophils (%) (Auto) 79.1 % (45.0-75.0) H Lymphocytes (%) (Auto) 10.6 % (20.0-45.0) L Monocytes (%) (Auto) 7.7 % (1.0-10.0) Eosinophils (%) (Auto) 1.0 % (0.0-3.0) Basophils (%) (Auto) 1.5 % (0.0-2.0) Current Medications Medications (Trade) Dose Ordered Sig/Lillian Route PRN Reason Start Time Stop Time Status Last Admin Dose Admin Acetaminophen (Tylenol) 650 mg Q4H PRN ORAL Fever 09/30/16 19:30 10/30/16 19:29 Albuterol/ Ipratropium (DuoNeb 0.5-3(2.5)mg/3ml) 3 ml Q4H PRN HHN Shortness of Breath 10/04/16 15:00 10/09/16 14:59 Dextrose (Dextrose 50%) STAT PRN IV Hypoglycemia 09/30/16 19:30 10/30/16 19:29 Epoetin Joseph (Procrit (for ESRD on dialysis)) 5,000 units MON-WED-TUE SUBQ 10/01/16 21:00 10/31/16 20:59 10/01/16 21:41 Insulin Aspart (NovoLOG) BEFORE MEALS AND HS SUBQ 09/30/16 21:00 10/30/16 20:59 Lidocaine (Lidoderm 5% PATCH) 1 patch DAILY TDERMAL 10/01/16 09:00 10/31/16 08:59 10/04/16 08:40 Lisinopril (Zestril) 2.5 mg Q12HR ORAL 10/03/16 21:00 11/02/16 20:59 10/03/16 21:09 Ondansetron HCl (Zofran) 4 mg Q6H PRN IVP Nausea & Vomiting 09/30/16 19:30 10/30/16 19:29 Pantoprazole (Protonix) 40 mg EVERY 12 HOURS IVP 10/04/16 09:00 11/03/16 08:59 Polyethylene Glycol (Miralax) 17 gm DAILYPRN PRN ORAL Constipation 09/30/16 19:30 10/30/16 19:29 10/02/16 08:28 Sodium Chloride (Sodium Chloride 1000ml bag) 1,000 ml @ 500 mls/hr Q2H PRN IVLG sbp<90 during hd 10/01/16 06:00 10/31/16 05:59 Temazepam (Restoril) 15 mg HSPRN PRN ORAL Insomnia 09/30/16 19:30 10/07/16 19:29 Tramadol HCl (Ultram) 50 mg Q4H PRN ORAL moderate pain 10/01/16 08:15 10/08/16 08:14 10/04/16 17:02 Vitamin B Complex/ Vit C/Folic Acid (Nephrovite) 1 tab DAILY ORAL 10/01/16 09:00 10/31/16 08:59 10/04/16 08:40 Ivania Bhardwaj M.D. Oct 04, 2016 18:18
[2016-10-04] MEDS: Epogen (for ESRD on dialysis) SUBQ SCH (21:13)
[2016-10-05] VITALS (10 sets, daily range): BP systolic 106–143; BP diastolic 60–90
[2016-10-05] MEDS: NovoLOG Insulin Flexpen SUBQ SCH ×4 (06:13→20:10)
--- NOTE | 2016-10-05 08:02 | General Progress Note ---
Assessment/Plan Assessment/Plan (1) Cocaine abuse (2) Chest pain (3) CHF (4) ESRD on Hemodialysis (5) Lumbar sprain s/p fall Pt will be continued on Lidoderm patch and tramadol. Pt was d/w Dr. Rodriguez and he concurred. Subjective Date patient seen: Oct 05, 2016 Time patient seen: 07:00 - am Allergies: Coded Allergies: No Known Allergies (Unverified , 09/28/16) Subjective REVIEW OF SYSTEMS: Denies rash, fever, chills, sweating, dizziness, drowsiness, blurred vision, sore throat, or change in weight. No nausea, vomiting, diarrhea, or blood in the stool or urine. No bowel or bladder incontinence. No dysuria. c/o back pain SUBJECTIVE: Pt reports that his pain has been stable on the medications, reducing his pain to a 3/10. Objective Last 24 Hour Vital Signs Date Time Temp Pulse Resp B/P Pulse Ox O2 Delivery O2 Flow Rate FiO2 10/05/16 04:02 98.3 69 20 111/60 97 Room Air 10/05/16 00:24 98.6 80 19 110/70 94 Room Air 10/04/16 21:56 48 14 Room Air 10/04/16 21:13 115/62 10/04/16 20:00 96.8 72 16 115/62 94 Room Air 10/04/16 18:10 97.2 10/04/16 16:00 96.9 76 17 113/60 92 Room Air 10/04/16 12:37 76 158/81 10/04/16 11:30 97.2 77 18 153/84 Room Air 10/04/16 11:30 Room Air 10/04/16 11:27 97.3 76 20 158/81 96 Room Air 10/04/16 08:52 97.0 80 20 113/60 95 Room Air 10/04/16 08:20 97.3 66 18 165/84 96 Room Air 10/04/16 08:20 Room Air Intake and Output 10/04/16 10/05/16 19:00 07:00 Intake Total 240 ml 280 ml Output Total 3245 ml 500 ml Balance -3005 ml -220 ml Intake Oral 240 ml 280 ml Output Urine Total 150 ml 500 ml Hemodialysis UF 3095 ml # Voids 3 # Bowel Movements 1 1 Laboratory Tests 10/04/16 09:00: White Blood Count 8.5, Red Blood Count 3.27L, Hemoglobin 9.3L, Hematocrit 28.5L , Mean Corpuscular Volume 87, Mean Corpuscular Hemoglobin 28.6, Mean Corpuscular Hemoglobin Concent 32.8, Red Cell Distribution Width 16.9H, Platelet Count 290, Mean Platelet Volume 7.9, Neutrophils (%) (Auto) 79.1H, Lymphocytes (%) (Auto) 10.6L, Monocytes (%) (Auto) 7.7, Eosinophils (%) (Auto) 1.0, Basophils (%) (Auto) 1.5 Height (Feet): 5 Height (Inches): 5.00 Weight (Pounds): 180 Objective PHYSICAL EXAMINATION: GENERAL: Alert, awake, and oriented. HEENT: PERRLA. NECK: Range of motion is full in all directions. No tenderness to paracervical muscles. No adenopathy. LUNGS: Decreased breath sounds bilaterally. HEART: S1 and S2, regular. ABDOMEN: Obese. BACK: Range of motion is decreased in flexion and extension with tenderness to paraspinous and trapezius muscles. EXTREMITIES: No cyanosis, no clubbing, edema noted on RUE. NEURO: No changes. ARRON EDWARD Oct 05, 2016 08:02
[2016-10-05 08:21] LABS: BASOPHILS % (AUTO) 1.1 % (0.0-2.0); EOSINOPHILS % (AUTO) 0.8 % (0.0-3.0); INR 1.2 (0.9-1.1); LYMPHOCYTES % (AUTO) 6.3 % (20.0-45.0); MEAN CORPUSCULAR HEMOGLOBIN 28.8 PG (27.0-31.0); MEAN CORPUSCULAR HGB CONC 32.7 G/DL (32.0-36.0); MEAN CORPUSCULAR VOLUME 88 FL (80-99); MEAN PLATELET VOLUME 6.8 FL (6.5-10.1); MONOCYTES % (AUTO) 9.3 % (1.0-10.0); NEUTROPHILS % (AUTO) 82.6 % (45.0-75.0); PLATELET COUNT 271 K/UL (150-450); PROTHROMBIN TIME 12.1 SEC (9.30-11.50); WHITE BLOOD COUNT 7.6 K/UL (4.8-10.8)
[2016-10-05 08:28] LABS: CALCIUM 8.8 mg/dL (8.6-10.2); CREATININE 3.6 mg/dL (0.7-1.2); POTASSIUM 3.8 mEQ/L (3.4-4.9)
[2016-10-05] MEDS ORDERED: LR 1000ml 1,000 ML IVLG SCH (08:37)
--- NOTE | 2016-10-05 08:37 | Anethesia Preoperative Eval ---
Anesthesia Pre-op PMH/ROS General Date of Evaluation: Oct 05, 2016 Anesthesiologist: Ryan ASA Score: ASA 3 Mallampati Score Class I : Soft palate, uvula, fauces, pillars visible Class II: Soft palate, uvula, fauces visible Class III: Soft palate, base of uvula visible Class IV: Only hard plate visible Mallampati Classification: Class II Surgeon: Valeriano Diagnosis: GI bleed Surgical Procedure: EGD Anesthesia History: none Family History: no anesthesia problems Allergies: Coded Allergies: No Known Allergies (Unverified , 09/28/16) Medications: see eMAR Past Medical History Cardiovascular: Reports: HTN, Denies: CAD, [place], arrhythmia, other, valve dz Pulmonary: Denies: COPD, CHRISTIAN, asthma, other Gastrointestinal/Genitourinary: Reports: ESRD - on HD, GERD, other - GI bleed, Denies: CRI 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: Denies: CVA, TIA, dementia, depression/anxiety, other Endocrine: Reports: DM, Denies: hypothyroidism, other, steroids HEENT: Denies: [place] (L), [place] (R), cataract (L), cataract (R), glaucoma, other Hematology/Immune: Reports: anemia - acute on chronic, Denies: DVT, bleeding disorder, other Musculoskeletal/Integumentary: Denies: DDD, DJD, OA, RA, edema, other PSxH Narrative: Denies Anesthesia Pre-op Phys. Exam Physician Exam Last Vital Signs Date Time Temp Pulse Resp B/P Pulse Ox O2 Delivery O2 Flow Rate FiO2 10/05/16 08:00 97.0 92 20 113/70 95 Room Air 10/04/16 07:30 21 10/01/16 16:45 2.0 Constitutional: NAD Cardiovascular: RRR Respiratory: CTA Airway Exam Mallampati Score: Class II MO: full ROM: full Anesthesia Pre-op A/P Labs Hematology Test 10/04/16 09:00 10/05/16 07:10 White Blood Count 8.5 K/UL (4.8-10.8) 7.6 K/UL (4.8-10.8) Red Blood Count 3.27 M/UL (4.70-6.10) L 2.90 M/UL (4.70-6.10) L Hemoglobin 9.3 G/DL (14.2-18.0) L 8.4 G/DL (14.2-18.0) L Hematocrit 28.5 % (42.0-52.0) L 25.6 % (42.0-52.0) L Mean Corpuscular Volume 87 FL (80-99) 88 FL (80-99) Mean Corpuscular Hemoglobin 28.6 PG (27.0-31.0) 28.8 PG (27.0-31.0) Mean Corpuscular Hemoglobin Concent 32.8 G/DL (32.0-36.0) 32.7 G/DL (32.0-36.0) Red Cell Distribution Width 16.9 % (11.6-14.8) H 18.0 % (11.6-14.8) H Platelet Count 290 K/UL (150-450) 271 K/UL (150-450) Mean Platelet Volume 7.9 FL (6.5-10.1) 6.8 FL (6.5-10.1) Neutrophils (%) (Auto) 79.1 % (45.0-75.0) H 82.6 % (45.0-75.0) H Lymphocytes (%) (Auto) 10.6 % (20.0-45.0) L 6.3 % (20.0-45.0) L Monocytes (%) (Auto) 7.7 % (1.0-10.0) 9.3 % (1.0-10.0) Eosinophils (%) (Auto) 1.0 % (0.0-3.0) 0.8 % (0.0-3.0) Basophils (%) (Auto) 1.5 % (0.0-2.0) 1.1 % (0.0-2.0) Coagulation Test 10/05/16 07:10 Prothrombin Time 12.1 SEC (9.30-11.50) H Prothromb Time International Ratio 1.2 (0.9-1.1) H Activated Partial Thromboplast Time 30 SEC (23-33) Chemistry Test 10/05/16 07:10 Sodium Level 134 mEQ/L (135-145) L Potassium Level 3.8 mEQ/L (3.4-4.9) Chloride Level 90 mEQ/L (98-107) L Carbon Dioxide Level 29 mEQ/L (20-30) Anion Gap 15 (5-15) Blood Urea Nitrogen 58 mg/dL (7-23) H Creatinine 3.6 mg/dL (0.7-1.2) H Estimat Glomerular Filtration Rate 21.0 mL/min (>60) Glucose Level 72 mg/dL (74-106) L Calcium Level 8.8 mg/dL (8.6-10.2) Studies Pre-op Studies: EKG - st Risk Assessment & Plan Assessment: ASA IIIE Plan: MAC Status Change Before Surgery: No Pre-Antibiotics Drug: N/a ZAFAR ALMEIDA M.D. Oct 05, 2016 08:36
--- NOTE | 2016-10-05 08:37 | Immediate Post-Op Evaluation ---
Immediate Post-Op Evalulation Immediate Post-Op Evalulation Procedure: EGD Date of Evaluation: Oct 05, 2016 Time of Evaluation: 09:24 IV Fluids: 100 Blood Products: 0 Estimated Blood Loss: 0 Urinary Output: 0 Blood Pressure Systolic: 127 Blood Pressure Diastolic: 65 Pulse Rate: 70 Respiratory Rate: 17 O2 Sat by Pulse Oximetry: 99 Temperature (Fahrenheit): 97.1 Pain Score (1-10): 0 Nausea: No Vomiting: No Complications 0 Patient Status: awake, reacts, patent, none Hydration Status: adequate Drug: N/A ZAFAR ALMEIDA M.D. Oct 05, 2016 08:37
--- NOTE | 2016-10-05 08:37 | 48 Hour Post Anesthesia Eval ---
Post Anesthesia Evaluation Procedure: EGD Date of Evaluation: Oct 05, 2016 Blood Pressure Systolic: 138 0: 88 Pulse Rate: 77 Respiratory Rate: 17 O2 Sat by Pulse Oximetry: 96 Airway: patent Nausea: No Vomiting: No Pain Intensity: 0 Hydration Status: adequate Cardiopulmonary Status: at baseline Mental Status/LOC: patient returned to baseline Post-Anesthesia Complications: 0 Follow-up care needed: N/A - further care as per primary team ZAFAR ALMEIDA M.D. Oct 05, 2016 08:37
[2016-10-05] MEDS ORDERED: Labetalol 5mg/ml 20ml vial IV PRN (08:45)
[2016-10-05] MEDS ORDERED: DiphenhydrAMINE 50mg/ml Inj IVP PRN (08:45)
[2016-10-05] MEDS ORDERED: NS 550ML IV ONE (08:55)
--- NOTE | 2016-10-05 08:59 | Pre-Procedure Note/Attestation ---
Pre-Procedure Note/Attestation Complete Prior to Procedure Planned Procedure: not applicable Procedure Narrative: egd Indications for Procedure Pre-Operative Diagnosis: gib Attestation I attest that I discussed the nature of the procedure; its benefits; risks and complications; and alternatives (and the risks and benefits of such alternatives ), prior to the procedure, with the patient (or the patient's legal corporate sales representative). I attest that, if there was a reasonable possibility of needing a blood transfusion, the patient (or the patient's legal corporate sales representative) was given the [facility] standardized written summary, pursuant to the Adán No Blood Safety Act ([place] Health and Safety Code # 1645, as amended). I attest that I re-evaluated the patient just prior to the surgery and that there has been no change in the patient's H&P, except as documented below: JEANETTE WILLETT Oct 05, 2016 08:59
[2016-10-05] MEDS ORDERED: Propofol 10mg/ml 20ml IV ONE (09:00)
[2016-10-05] MEDS ORDERED: Lidocaine 1% MPF 10mg/ml 5ml ONE (09:00)
--- NOTE | 2016-10-05 09:22 | Endoscopy Procedure Note ---
Endoscopy Procedure Note Indication for Procedure: gib Procedures Performed: EGD Operative Findings/Diagnosis: gastritis Specimen: yes Pt Tolerated Procedure Well: Yes Estimated Blood Loss: none Anesthesiologist: roland Anesthesia: MAC Implant(s) used?: No 50 yrs or older w/o bx or poly: Not Applicable 10yrs. F/U not recommended: Not Applicable JEANETTE WILLETT Oct 05, 2016 09:22
[2016-10-05 10:17] LABS: OTHERS PATHOLOGIST COMMENT
[2016-10-05] MEDS: Pantoprazole Inj IVP SCH ×2 (10:18→20:41)
[2016-10-05] MEDS: Lisinopril 2.5mg tab ORAL SCH ×2 (10:18→20:41)
[2016-10-05] MEDS: Nephrovite tab ORAL SCH (10:18)
--- NOTE | 2016-10-05 12:45 | Nephrology Progress Note ---
Assessment/Plan Problem List: (1) ESRD (end stage renal disease) on dialysis (2) Chest pain (3) Cocaine abuse (4) Anemia in chronic kidney disease Assessment R central stenosis ? Plan HD tomorrow cont Epogen Watch BP Discussed with RN consider vascular eval for R arm Subjective Subjective In NAD Objective Objective Last 24 Hour Vital Signs Date Time Temp Pulse Resp B/P Pulse Ox O2 Delivery O2 Flow Rate FiO2 10/05/16 11:28 98.2 75 20 116/68 95 Room Air 10/05/16 10:18 134/65 10/05/16 09:45 97.5 65 21 134/65 99 Nasal Cannula 3.0 10/05/16 09:30 74 21 143/90 99 Simple Mask 6.0 10/05/16 09:26 71 16 132/75 99 Simple Mask 6.0 10/05/16 09:26 77 17 96 10/05/16 09:21 97.1 69 16 127/65 99 Simple Mask 6.0 10/05/16 08:00 97.0 92 20 113/70 95 Room Air 10/05/16 07:48 90 14 Room Air 10/05/16 04:02 98.3 69 20 111/60 97 Room Air 10/05/16 00:24 98.6 80 19 110/70 94 Room Air 10/04/16 21:56 48 14 Room Air 10/04/16 21:13 115/62 10/04/16 20:00 96.8 72 16 115/62 94 Room Air 10/04/16 18:10 97.2 10/04/16 16:00 96.9 76 17 113/60 92 Room Air Intake and Output 10/04/16 10/05/16 19:00 07:00 Intake Total 240 ml 280 ml Output Total 3245 ml 500 ml Balance -3005 ml -220 ml Intake Oral 240 ml 280 ml Output Urine Total 150 ml 500 ml Hemodialysis UF 3095 ml # Voids 3 # Bowel Movements 1 1 Laboratory Tests 10/05/16 07:10: White Blood Count 7.6, Red Blood Count 2.90L, Hemoglobin 8.4L, Hematocrit 25.6L , Mean Corpuscular Volume 88, Mean Corpuscular Hemoglobin 28.8, Mean Corpuscular Hemoglobin Concent 32.7, Red Cell Distribution Width 18.0H, Platelet Count 271, Mean Platelet Volume 6.8, Neutrophils (%) (Auto) 82.6H, Lymphocytes (%) (Auto) 6.3L, Monocytes (%) (Auto) 9.3, Eosinophils (%) (Auto) 0.8, Basophils (%) (Auto) 1.1, Prothrombin Time 12.1H, Prothromb Time International Ratio 1.2H, Activated Partial Thromboplast Time 30, Sodium Level 134L, Potassium Level 3.8, Chloride Level 90L, Carbon Dioxide Level 29, Anion Gap 15, Blood Urea Nitrogen 58H, Creatinine 3.6H, Estimat Glomerular Filtration Rate 21.0, Glucose Level 72L, Calcium Level 8.8 Height (Feet): 5 Height (Inches): 5.00 Weight (Pounds): 180 Cardiovascular: normal rate Respiratory/Chest: lungs clear Extremities: severe edema - R HAI Painting Oct 05, 2016 12:45
--- NOTE | 2016-10-05 13:56 | General Progress Note ---
Assessment/Plan Assessment/Plan ASSESSMENT: 1. Anemia secondary to end-stage renal disease. Ferritin is 711. Remains on epogen 2. Acute drop in hgb, consider GI bleed, being seen by GI 3. Thrombocytopenia potentially secondary to underlying infection. hep and hiv - , now better 4. Coagulopathy INR is 1.4 5. Diabetes mellitus. 6. End-stage renal disease on hemodialysis. 7. Cocaine use history. RECOMMENDATIONS: 1. Monitor counts. 2. Transfuse if hemoglobin less than 7.5. 3. Continue epogen 4. Followup GI recs 5. Ultrasound of the abdomen reviewed 6. Gi recs regarding endoscopy 7. Anemia workup has been reviewed 8. Followup on Nephrology, Pulmonary, and Cardiology recommendations 9. DVT prophylaxis with scds 10. GI prophylaxis prn 11. Pain control. 12. Discussed with staff. Thank you, Hugh Lopez MD Subjective Constitutional: Reports: no symptoms HEENT: Reports: no symptoms Cardiovascular: Reports: no symptoms Respiratory: Reports: no symptoms Gastrointestinal/Abdominal: Reports: poor appetite Genitourinary: Reports: no symptoms 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: Reports: no symptoms Endocrine: Reports: no symptoms Hematologic/Lymphatic: Reports: anemia Allergies: Coded Allergies: No Known Allergies (Unverified , 09/28/16) Subjective H/H is better, is s/p transfusion Objective Last 24 Hour Vital Signs Date Time Temp Pulse Resp B/P Pulse Ox O2 Delivery O2 Flow Rate FiO2 10/05/16 11:28 98.2 75 20 116/68 95 Room Air 10/05/16 10:18 134/65 10/05/16 09:45 97.5 65 21 134/65 99 Nasal Cannula 3.0 10/05/16 09:30 74 21 143/90 99 Simple Mask 6.0 10/05/16 09:26 71 16 132/75 99 Simple Mask 6.0 10/05/16 09:26 77 17 96 10/05/16 09:21 97.1 69 16 127/65 99 Simple Mask 6.0 10/05/16 08:00 97.0 92 20 113/70 95 Room Air 10/05/16 07:48 90 14 Room Air 10/05/16 04:02 98.3 69 20 111/60 97 Room Air 10/05/16 00:24 98.6 80 19 110/70 94 Room Air 10/04/16 21:56 48 14 Room Air 10/04/16 21:13 115/62 10/04/16 20:00 96.8 72 16 115/62 94 Room Air 10/04/16 18:10 97.2 10/04/16 16:00 96.9 76 17 113/60 92 Room Air Intake and Output 10/04/16 10/05/16 19:00 07:00 Intake Total 240 ml 280 ml Output Total 3245 ml 500 ml Balance -3005 ml -220 ml Intake Oral 240 ml 280 ml Output Urine Total 150 ml 500 ml Hemodialysis UF 3095 ml # Voids 3 # Bowel Movements 1 1 Laboratory Tests 10/05/16 07:10: White Blood Count 7.6, Red Blood Count 2.90L, Hemoglobin 8.4L, Hematocrit 25.6L , Mean Corpuscular Volume 88, Mean Corpuscular Hemoglobin 28.8, Mean Corpuscular Hemoglobin Concent 32.7, Red Cell Distribution Width 18.0H, Platelet Count 271, Mean Platelet Volume 6.8, Neutrophils (%) (Auto) 82.6H, Lymphocytes (%) (Auto) 6.3L, Monocytes (%) (Auto) 9.3, Eosinophils (%) (Auto) 0.8, Basophils (%) (Auto) 1.1, Prothrombin Time 12.1H, Prothromb Time International Ratio 1.2H, Activated Partial Thromboplast Time 30, Sodium Level 134L, Potassium Level 3.8, Chloride Level 90L, Carbon Dioxide Level 29, Anion Gap 15, Blood Urea Nitrogen 58H, Creatinine 3.6H, Estimat Glomerular Filtration Rate 21.0, Glucose Level 72L, Calcium Level 8.8 Height (Feet): 5 Height (Inches): 5.00 Weight (Pounds): 180 General Appearance: no apparent distress EENT: normal ENT inspection Neck: normal alignment Cardiovascular: regular rhythm Respiratory/Chest: normal breath sounds Abdomen: non tender Extremities: non-tender Edema: no edema noted Leg (L), no edema noted Leg (R) Hugh Lopez Oct 05, 2016 13:56
[2016-10-05] MEDS ORDERED: Nulytely 4L ORAL ONE (15:00)
--- NOTE | 2016-10-05 15:06 | General Progress Note ---
Assessment/Plan Problem List: (1) Cocaine abuse ICD Codes: F14.10 - Cocaine abuse, uncomplicated SNOMED: 71122095, [id number] (2) Chest pain ICD Codes: R07.9 - Chest pain, unspecified SNOMED: 33270482, [id number] Qualifiers: Qualified Codes: R07.9 - Chest pain, unspecified Status: progressing Assessment/Plan on hd gi bleeding scope by gi reviewed chart and labs afebrile vitals stable no cp Subjective ROS Limited/Unobtainable: Yes Allergies: Coded Allergies: No Known Allergies (Unverified , 09/28/16) Objective Last 24 Hour Vital Signs Date Time Temp Pulse Resp B/P Pulse Ox O2 Delivery O2 Flow Rate FiO2 10/05/16 11:28 98.2 75 20 116/68 95 Room Air 10/05/16 10:18 134/65 10/05/16 09:45 97.5 65 21 134/65 99 Nasal Cannula 3.0 10/05/16 09:30 74 21 143/90 99 Simple Mask 6.0 10/05/16 09:26 71 16 132/75 99 Simple Mask 6.0 10/05/16 09:26 77 17 96 10/05/16 09:21 97.1 69 16 127/65 99 Simple Mask 6.0 10/05/16 08:00 97.0 92 20 113/70 95 Room Air 10/05/16 07:48 90 14 Room Air 10/05/16 04:02 98.3 69 20 111/60 97 Room Air 10/05/16 00:24 98.6 80 19 110/70 94 Room Air 10/04/16 21:56 48 14 Room Air 10/04/16 21:13 115/62 10/04/16 20:00 96.8 72 16 115/62 94 Room Air 10/04/16 18:10 97.2 10/04/16 16:00 96.9 76 17 113/60 92 Room Air Intake and Output 10/04/16 10/05/16 19:00 07:00 Intake Total 240 ml 280 ml Output Total 3245 ml 500 ml Balance -3005 ml -220 ml Intake Oral 240 ml 280 ml Output Urine Total 150 ml 500 ml Hemodialysis UF 3095 ml # Voids 3 # Bowel Movements 1 1 Laboratory Tests 10/05/16 07:10: White Blood Count 7.6, Red Blood Count 2.90L, Hemoglobin 8.4L, Hematocrit 25.6L , Mean Corpuscular Volume 88, Mean Corpuscular Hemoglobin 28.8, Mean Corpuscular Hemoglobin Concent 32.7, Red Cell Distribution Width 18.0H, Platelet Count 271, Mean Platelet Volume 6.8, Neutrophils (%) (Auto) 82.6H, Lymphocytes (%) (Auto) 6.3L, Monocytes (%) (Auto) 9.3, Eosinophils (%) (Auto) 0.8, Basophils (%) (Auto) 1.1, Prothrombin Time 12.1H, Prothromb Time International Ratio 1.2H, Activated Partial Thromboplast Time 30, Sodium Level 134L, Potassium Level 3.8, Chloride Level 90L, Carbon Dioxide Level 29, Anion Gap 15, Blood Urea Nitrogen 58H, Creatinine 3.6H, Estimat Glomerular Filtration Rate 21.0, Glucose Level 72L, Calcium Level 8.8 Height (Feet): 5 Height (Inches): 5.00 Weight (Pounds): 180 EENT: PERRL/EOMI Neck: supple Cardiovascular: normal rate Respiratory/Chest: lungs clear Abdomen: soft Liu Elizondo MD Oct 05, 2016 15:06
--- NOTE | 2016-10-05 15:46 | Pulmonology Progress Note ---
Assessment/Plan Problems: (1) Acute respiratory failure Assessment & Plan: improved (2) Anemia in chronic kidney disease (3) ESRD (end stage renal disease) on dialysis (4) Chest pain (5) Fluid overload (6) Cocaine abuse (7) Back pain Assessment/Plan HD as needed check electrolytes pain control EGD done, results pending dc planning might need placement Subjective ROS Limited/Unobtainable: No Allergies: Coded Allergies: No Known Allergies (Unverified , 09/28/16) Objective Last 24 Hour Vital Signs Date Time Temp Pulse Resp B/P Pulse Ox O2 Delivery O2 Flow Rate FiO2 10/05/16 11:28 98.2 75 20 116/68 95 Room Air 10/05/16 10:18 134/65 10/05/16 09:45 97.5 65 21 134/65 99 Nasal Cannula 3.0 10/05/16 09:30 74 21 143/90 99 Simple Mask 6.0 10/05/16 09:26 71 16 132/75 99 Simple Mask 6.0 10/05/16 09:26 77 17 96 10/05/16 09:21 97.1 69 16 127/65 99 Simple Mask 6.0 10/05/16 08:00 97.0 92 20 113/70 95 Room Air 10/05/16 07:48 90 14 Room Air 10/05/16 04:02 98.3 69 20 111/60 97 Room Air 10/05/16 00:24 98.6 80 19 110/70 94 Room Air 10/04/16 21:56 48 14 Room Air 10/04/16 21:13 115/62 10/04/16 20:00 96.8 72 16 115/62 94 Room Air 10/04/16 18:10 97.2 10/04/16 16:00 96.9 76 17 113/60 92 Room Air Intake and Output 10/04/16 10/05/16 19:00 07:00 Intake Total 240 ml 280 ml Output Total 3245 ml 500 ml Balance -3005 ml -220 ml Intake Oral 240 ml 280 ml Output Urine Total 150 ml 500 ml Hemodialysis UF 3095 ml # Voids 3 # Bowel Movements 1 1 General Appearance: WD/WN HEENT: normocephalic, atraumatic Respiratory/Chest: chest wall non-tender, lungs clear Cardiovascular: normal peripheral pulses, normal rate Abdomen: normal bowel sounds, soft, non tender Extremities: no cyanosis Skin: no rash 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, no motor/sensory deficits Laboratory Tests 10/05/16 07:10: White Blood Count 7.6, Red Blood Count 2.90L, Hemoglobin 8.4L, Hematocrit 25.6L , Mean Corpuscular Volume 88, Mean Corpuscular Hemoglobin 28.8, Mean Corpuscular Hemoglobin Concent 32.7, Red Cell Distribution Width 18.0H, Platelet Count 271, Mean Platelet Volume 6.8, Neutrophils (%) (Auto) 82.6H, Lymphocytes (%) (Auto) 6.3L, Monocytes (%) (Auto) 9.3, Eosinophils (%) (Auto) 0.8, Basophils (%) (Auto) 1.1, Prothrombin Time 12.1H, Prothromb Time International Ratio 1.2H, Activated Partial Thromboplast Time 30, Sodium Level 134L, Potassium Level 3.8, Chloride Level 90L, Carbon Dioxide Level 29, Anion Gap 15, Blood Urea Nitrogen 58H, Creatinine 3.6H, Estimat Glomerular Filtration Rate 21.0, Glucose Level 72L, Calcium Level 8.8 Current Medications Medications (Trade) Dose Ordered Sig/Lillian Route PRN Reason Start Time Stop Time Status Last Admin Dose Admin Acetaminophen (Tylenol) 650 mg Q4H PRN ORAL Fever 09/30/16 19:30 10/30/16 19:29 Acetaminophen (Tylenol) 650 mg Q4H PRN ORAL Mild Pain (Pain Scale 1-3) 10/05/16 08:45 10/05/16 17:00 Albuterol/ Ipratropium (DuoNeb 0.5-3(2.5)mg/3ml) 3 ml Q4H PRN HHN Shortness of Breath 10/04/16 15:00 10/09/16 14:59 Dextrose (Dextrose 50%) STAT PRN IV Hypoglycemia 09/30/16 19:30 10/30/16 19:29 Diphenhydramine HCl 25 mg 25 mg Q15M PRN IVP Itching 10/05/16 08:45 10/05/16 17:00 Epoetin Joseph (Procrit (for ESRD on dialysis)) 5,000 units TUE-TUE-TUE SUBQ 10/01/16 21:00 10/31/16 20:59 10/04/16 21:13 Heparin Sodium (Porcine) (Heparin 5000 units/ml) 5,000 units POSTHD INJ 10/06/16 14:00 11/05/16 13:59 Heparin Sodium (Porcine) (Heparin Sod 1000 units/ml 10ml) 2,000 unit ONCE ONCE IV 10/06/16 14:00 10/06/16 14:01 Hydralazine HCl (Apresoline) 5 mg Q30M PRN IV SBP>160/DBP>90 10/05/16 08:45 10/05/16 17:00 Insulin Aspart (NovoLOG) BEFORE MEALS AND HS SUBQ 09/30/16 21:00 10/30/16 20:59 Labetalol HCl (Normodyne) 5 mg Q10M PRN IV SBP>160 / DBP>90 10/05/16 08:45 10/05/16 17:00 Lactated Ringer's 1,000 ml @ 10 mls/hr Q24H IVLG 10/05/16 08:37 10/05/16 17:00 Lidocaine (Lidoderm 5% PATCH) 1 patch DAILY TDERMAL 10/01/16 09:00 10/31/16 08:59 10/05/16 10:21 Lisinopril (Zestril) 2.5 mg Q12HR ORAL 10/03/16 21:00 11/02/16 20:59 10/05/16 10:18 Ondansetron HCl (Zofran) 4 mg Q1H PRN IVP Nausea & Vomiting 10/05/16 08:45 10/05/16 17:00 Ondansetron HCl (Zofran) 4 mg Q6H PRN IVP Nausea & Vomiting 09/30/16 19:30 10/30/16 19:29 Pantoprazole (Protonix) 40 mg EVERY 12 HOURS IVP 10/04/16 09:00 11/03/16 08:59 10/05/16 10:18 Polyethylene Glycol (Miralax) 17 gm DAILYPRN PRN ORAL Constipation 09/30/16 19:30 10/30/16 19:29 10/02/16 08:28 Sodium Chloride (Sodium Chloride 1000ml bag) 1,000 ml @ 500 mls/hr Q2H PRN IVLG sbp<90 during hd 10/01/16 06:00 10/31/16 05:59 Sodium Chloride (Sodium Chloride 1000ml bag) 1,000 ml @ 500 mls/hr Q2H PRN IVLG sbp<90 during hd 10/06/16 14:00 11/05/16 13:59 Temazepam (Restoril) 15 mg HSPRN PRN ORAL Insomnia 09/30/16 19:30 10/07/16 19:29 Tramadol HCl (Ultram) 50 mg Q4H PRN ORAL moderate pain 10/01/16 08:15 10/08/16 08:14 10/04/16 17:02 Vitamin B Complex/ Vit C/Folic Acid (Nephrovite) 1 tab DAILY ORAL 10/01/16 09:00 10/31/16 08:59 10/05/16 10:18 CARLOS ALBERTO HERMAN Oct 05, 2016 15:46
--- NOTE | 2016-10-05 17:36 | Cardiac Electrophysiology PN ---
Assessment/Plan Status Narrative Moderate left ventricular enlargement. Global left ventricular hypokinesis. Worse septal apper akinetic s. Left ventricular ejection fraction estimated to be 30-35 %. No evidence of left ventricular hypertrophy. No evidence of pericardial fat or effusion. Severe right atrial enlargement by 2D. Mild right atrial enlargement by 2D. Focal aortic valve sclerosis with adequate cusp excursion Mildly thickened mitral valve leaflets with normal excursion. Mitral annulus and aortic root calcification. Pulmonic valve is well visualized. Normal tricuspid valve structure. IVC dilated at 2.7cm no physiologic collapse with respiration.RA pressure of 20mmHg. Assessment/Plan 1. Chest pain after using cocaine. This was likely due to vasospasm. The patient was ruled out for myocardial infarction. Avoid beta-david in view of the patient's cocaine use. 2. CHF with EF 30-35%.Avoid Betablocker for cocaine use. On Lisinopril 2.5 bid. 3. History of hypertension. On Lisinopril 2.5 bid. 4. End-stage renal disease, on hemodialysis. 5. Substance abuse with cocaine. 6. Anemia due to GI bleed. Stool OB positive. Had EGD today. Going for colonoscopy in AM. 7. Diabetes. ZOHREH RN Subjective Subjective Alert in NAD. No chest pain or SOB.Had EGD today. Awaiting Colonoscopy tomorrow. Objective Last 24 Hour Vital Signs Date Time Temp Pulse Resp B/P Pulse Ox O2 Delivery O2 Flow Rate FiO2 10/05/16 16:00 96.9 73 17 106/62 94 Room Air 10/05/16 11:28 98.2 75 20 116/68 95 Room Air 10/05/16 10:18 134/65 10/05/16 09:45 97.5 65 21 134/65 99 Nasal Cannula 3.0 10/05/16 09:30 74 21 143/90 99 Simple Mask 6.0 10/05/16 09:26 71 16 132/75 99 Simple Mask 6.0 10/05/16 09:26 77 17 96 10/05/16 09:21 97.1 69 16 127/65 99 Simple Mask 6.0 10/05/16 08:00 97.0 92 20 113/70 95 Room Air 10/05/16 07:48 90 14 Room Air 10/05/16 04:02 98.3 69 20 111/60 97 Room Air 10/05/16 00:24 98.6 80 19 110/70 94 Room Air 10/04/16 21:56 48 14 Room Air 10/04/16 21:13 115/62 10/04/16 20:00 96.8 72 16 115/62 94 Room Air 10/04/16 18:10 97.2 Intake and Output 10/04/16 10/05/16 19:00 07:00 Intake Total 240 ml 280 ml Output Total 3245 ml 500 ml Balance -3005 ml -220 ml Intake Oral 240 ml 280 ml Output Urine Total 150 ml 500 ml Hemodialysis UF 3095 ml # Voids 3 # Bowel Movements 1 1 Laboratory Tests Test 10/05/16 07:10 White Blood Count 7.6 K/UL (4.8-10.8) Red Blood Count 2.90 M/UL (4.70-6.10) L Hemoglobin 8.4 G/DL (14.2-18.0) L Hematocrit 25.6 % (42.0-52.0) L Mean Corpuscular Volume 88 FL (80-99) Mean Corpuscular Hemoglobin 28.8 PG (27.0-31.0) Mean Corpuscular Hemoglobin Concent 32.7 G/DL (32.0-36.0) Red Cell Distribution Width 18.0 % (11.6-14.8) H Platelet Count 271 K/UL (150-450) Mean Platelet Volume 6.8 FL (6.5-10.1) Neutrophils (%) (Auto) 82.6 % (45.0-75.0) H Lymphocytes (%) (Auto) 6.3 % (20.0-45.0) L Monocytes (%) (Auto) 9.3 % (1.0-10.0) Eosinophils (%) (Auto) 0.8 % (0.0-3.0) Basophils (%) (Auto) 1.1 % (0.0-2.0) Prothrombin Time 12.1 SEC (9.30-11.50) H Prothromb Time International Ratio 1.2 (0.9-1.1) H Activated Partial Thromboplast Time 30 SEC (23-33) Sodium Level 134 mEQ/L (135-145) L Potassium Level 3.8 mEQ/L (3.4-4.9) Chloride Level 90 mEQ/L (98-107) L Carbon Dioxide Level 29 mEQ/L (20-30) Anion Gap 15 (5-15) Blood Urea Nitrogen 58 mg/dL (7-23) H Creatinine 3.6 mg/dL (0.7-1.2) H Estimat Glomerular Filtration Rate 21.0 mL/min (>60) Glucose Level 72 mg/dL (74-106) L Calcium Level 8.8 mg/dL (8.6-10.2) Objective HEAD AND NECK: Showed no jugular venous distention or carotid bruits. LUNGS: Clear. CARDIOVASCULAR: Shows regular S1 and S2 with no gallop or murmur. ABDOMEN: Soft and nontender. EXTREMITIES: No pitting edema. He has a dialysis access in the right chest. DILIA GUERRERO Oct 05, 2016 17:36
--- NOTE | 2016-10-05 18:20 | Infectious Diseases Prog Note ---
Assessment/Plan Problems: (1) Colonization with VRE (vancomycin-resistant enterococcus) Assessment & Plan: keep in contact isolation (2) ESRD (end stage renal disease) on dialysis Assessment & Plan: continue HD as per renal. (3) Cocaine abuse Assessment & Plan: recommend counseling and rehab (4) Chest pain Assessment & Plan: evaluation as per primary (5) Anemia in chronic kidney disease Assessment & Plan: stable, monitor H/H transfuse as needed Subjective Constitutional: Reports: no symptoms HEENT: Reports: no symptoms Respiratory: Reports: no symptoms Breasts: Reports: no symptoms Cardiovascular: Reports: no symptoms Gastrointestinal/Abdominal: Reports: no symptoms Genitourinary: Reports: no symptoms Neurologic: Reports: no symptoms Psychiatric: Reports: no symptoms Allergies: Coded Allergies: No Known Allergies (Unverified , 09/28/16) Subjective he was doing well today, denied any symptoms. Objective Vital Signs Last 24 Hour Vital Signs Date Time Temp Pulse Resp B/P Pulse Ox O2 Delivery O2 Flow Rate FiO2 10/05/16 16:00 96.9 73 17 106/62 94 Room Air 10/05/16 11:28 98.2 75 20 116/68 95 Room Air 10/05/16 10:18 134/65 10/05/16 09:45 97.5 65 21 134/65 99 Nasal Cannula 3.0 10/05/16 09:30 74 21 143/90 99 Simple Mask 6.0 10/05/16 09:26 71 16 132/75 99 Simple Mask 6.0 10/05/16 09:26 77 17 96 10/05/16 09:21 97.1 69 16 127/65 99 Simple Mask 6.0 10/05/16 08:00 97.0 92 20 113/70 95 Room Air 10/05/16 07:48 90 14 Room Air 10/05/16 04:02 98.3 69 20 111/60 97 Room Air 10/05/16 00:24 98.6 80 19 110/70 94 Room Air 10/04/16 21:56 48 14 Room Air 10/04/16 21:13 115/62 10/04/16 20:00 96.8 72 16 115/62 94 Room Air Height (Feet): 5 Height (Inches): 5.00 Weight (Pounds): 180 General Appearance: WD/WN, no acute distress HEENT: normocephalic, atraumatic, anicteric, mucous membranes moist Respiratory/Chest: chest wall non-tender, lungs clear, normal breath sounds, no respiratory distress, no accessory muscle use Cardiovascular: normal peripheral pulses, normal rate, regular rhythm, no gallop/murmur Abdomen: normal bowel sounds, soft, non tender, no organomegaly, non distended , no mass Extremities: no cyanosis, no clubbing Skin: no rash, no lesions, no ulcers Laboratory Tests Test 10/05/16 07:10 White Blood Count 7.6 K/UL (4.8-10.8) Red Blood Count 2.90 M/UL (4.70-6.10) L Hemoglobin 8.4 G/DL (14.2-18.0) L Hematocrit 25.6 % (42.0-52.0) L Mean Corpuscular Volume 88 FL (80-99) Mean Corpuscular Hemoglobin 28.8 PG (27.0-31.0) Mean Corpuscular Hemoglobin Concent 32.7 G/DL (32.0-36.0) Red Cell Distribution Width 18.0 % (11.6-14.8) H Platelet Count 271 K/UL (150-450) Mean Platelet Volume 6.8 FL (6.5-10.1) Neutrophils (%) (Auto) 82.6 % (45.0-75.0) H Lymphocytes (%) (Auto) 6.3 % (20.0-45.0) L Monocytes (%) (Auto) 9.3 % (1.0-10.0) Eosinophils (%) (Auto) 0.8 % (0.0-3.0) Basophils (%) (Auto) 1.1 % (0.0-2.0) Prothrombin Time 12.1 SEC (9.30-11.50) H Prothromb Time International Ratio 1.2 (0.9-1.1) H Activated Partial Thromboplast Time 30 SEC (23-33) Sodium Level 134 mEQ/L (135-145) L Potassium Level 3.8 mEQ/L (3.4-4.9) Chloride Level 90 mEQ/L (98-107) L Carbon Dioxide Level 29 mEQ/L (20-30) Anion Gap 15 (5-15) Blood Urea Nitrogen 58 mg/dL (7-23) H Creatinine 3.6 mg/dL (0.7-1.2) H Estimat Glomerular Filtration Rate 21.0 mL/min (>60) Glucose Level 72 mg/dL (74-106) L Calcium Level 8.8 mg/dL (8.6-10.2) Current Medications Medications (Trade) Dose Ordered Sig/Lillian Route PRN Reason Start Time Stop Time Status Last Admin Dose Admin Acetaminophen (Tylenol) 650 mg Q4H PRN ORAL Fever 09/30/16 19:30 10/30/16 19:29 Albuterol/ Ipratropium 3 ml 3 ml Q4H PRN HHN Shortness of Breath 10/04/16 15:00 10/09/16 14:59 Dextrose (Dextrose 50%) STAT PRN IV Hypoglycemia 09/30/16 19:30 10/30/16 19:29 Epoetin Joseph (Procrit (for ESRD on dialysis)) 5,000 units MON-WED-FRI SUBQ 10/01/16 21:00 10/31/16 20:59 10/04/16 21:13 Heparin Sodium (Porcine) (Heparin 5000 units/ml) 5,000 units POSTHD INJ 10/06/16 14:00 11/05/16 13:59 Heparin Sodium (Porcine) (Heparin Sod 1000 units/ml 10ml) 2,000 unit ONCE ONCE IV 10/06/16 14:00 10/06/16 14:01 Insulin Aspart (NovoLOG) BEFORE MEALS AND HS SUBQ 09/30/16 21:00 10/30/16 20:59 Lidocaine (Lidoderm 5% PATCH) 1 patch DAILY TDERMAL 10/01/16 09:00 10/31/16 08:59 10/05/16 10:21 Lisinopril (Zestril) 2.5 mg Q12HR ORAL 10/03/16 21:00 11/02/16 20:59 10/05/16 10:18 Ondansetron HCl (Zofran) 4 mg Q6H PRN IVP Nausea & Vomiting 09/30/16 19:30 10/30/16 19:29 Pantoprazole (Protonix) 40 mg EVERY 12 HOURS IVP 10/04/16 09:00 11/03/16 08:59 10/05/16 10:18 Polyethylene Glycol (Miralax) 17 gm DAILYPRN PRN ORAL Constipation 09/30/16 19:30 10/30/16 19:29 10/02/16 08:28 Sodium Chloride (Sodium Chloride 1000ml bag) 1,000 ml @ 500 mls/hr Q2H PRN IVLG sbp<90 during hd 10/01/16 06:00 10/31/16 05:59 Sodium Chloride (Sodium Chloride 1000ml bag) 1,000 ml @ 500 mls/hr Q2H PRN IVLG sbp<90 during hd 10/06/16 14:00 11/05/16 13:59 Temazepam (Restoril) 15 mg HSPRN PRN ORAL Insomnia 09/30/16 19:30 10/07/16 19:29 Tramadol HCl (Ultram) 50 mg Q4H PRN ORAL moderate pain 10/01/16 08:15 10/08/16 08:14 10/04/16 17:02 Vitamin B Complex/ Vit C/Folic Acid (Nephrovite) 1 tab DAILY ORAL 10/01/16 09:00 10/31/16 08:59 10/05/16 10:18 Ivania Bhardwaj M.D. Oct 05, 2016 18:20
--- NOTE | 2016-10-05 18:58 | Procedure Note ---
DATE OF PROCEDURE: 10/05/2016 SURGEON: Warner Bal M.D. PROCEDURE: Upper endoscopy with biopsy. ANESTHESIOLOGIST: Dr. Quiroz. INSTRUMENT: Olympus adult flexible upper endoscope. INDICATION: Upper gastrointestinal bleeding. REASON FOR PROCEDURE: The procedure, risks, benefits, and possible consequences, including hemorrhage, aspiration, perforation and infection, and alternative treatments, were explained to the patient/legal guardian by Dr. Warner Bal and the patient/legal guardian understood and accepted these risks. DESCRIPTION OF PROCEDURE: After informed consent was obtained and the patient was adequately sedated, Olympus upper endoscope was advanced from mouth into the second portion of the duodenum and retroflexion was performed in the stomach. The patient had diffuse gastritis, highly suspicious for portal hypertensive gastropathy. Random biopsy from antrum and body of the stomach was obtained to rule out H. pylori infection and also for diagnosis of portal hypertensive gastropathy. Otherwise, there is no evidence of obvious GI bleeding. No esophageal varices. No gastric varices. No obvious ulceration was seen. The patient tolerated the procedure without any complication. SUMMARY OF FINDINGS: Gastritis status post biopsy. No obvious upper gastrointestinal bleeding at this time. RECOMMENDATIONS: Colonoscopy tomorrow. I want to thank, Dr. Liu Elizondo, for this kind referral. Warner Bal M.D. DR: STEFANIA JOB#: [id number] CC: Liu Elizondo M.D.; Fax#: [phone]
[2016-10-05] MEDS: traMADol 50mg tab ORAL PRN (20:43)
[2016-10-05] MEDS ORDERED: Magnesium Citrate Liq Btl ORAL ONE (23:00)
[2016-10-06] VITALS (7 sets, daily range): BP systolic 91–140; BP diastolic 55–79
[2016-10-06] MEDS: NovoLOG Insulin Flexpen SUBQ SCH ×4 (06:30→21:46)
[2016-10-06 07:26] LABS: CREATININE 3.9 mg/dL (0.7-1.2); GLOMERULAR FILTRATION RATE 19.1 mL/min (>60); PHOSPHORUS 4.7 mg/dL (2.5-4.8); POTASSIUM 3.9 mEQ/L (3.4-4.9)
[2016-10-06 07:27] LABS: BASOPHILS % (AUTO) 1.2 % (0.0-2.0); EOSINOPHILS % (AUTO) 0.7 % (0.0-3.0); LYMPHOCYTES % (AUTO) 7.4 % (20.0-45.0); MEAN CORPUSCULAR HEMOGLOBIN 29.6 PG (27.0-31.0); MEAN CORPUSCULAR HGB CONC 31.5 G/DL (32.0-36.0); MEAN CORPUSCULAR VOLUME 94 FL (80-99); MEAN PLATELET VOLUME 6.6 FL (6.5-10.1); MONOCYTES % (AUTO) 7.1 % (1.0-10.0); NEUTROPHILS % (AUTO) 83.7 % (45.0-75.0); PLATELET COUNT 325 K/UL (150-450); RED BLOOD COUNT 3.04 M/UL (4.70-6.10); RED CELL DISTRIBUTION WIDTH 24.1 % (11.6-14.8); WHITE BLOOD COUNT 10.3 K/UL (4.8-10.8)
--- NOTE | 2016-10-06 07:52 | General Progress Note ---
Assessment/Plan Assessment/Plan (1) Cocaine abuse (2) Chest pain (3) CHF (4) ESRD on Hemodialysis (5) Lumbar sprain s/p fall Pt will be continued on Lidoderm patch and tramadol. Pt was d/w Dr. Rodriguez and he concurred. Subjective Date patient seen: Oct 06, 2016 Time patient seen: 07:00 - am Allergies: Coded Allergies: No Known Allergies (Unverified , 09/28/16) Subjective REVIEW OF SYSTEMS: Denies rash, fever, chills, sweating, dizziness, drowsiness, blurred vision, sore throat, or change in weight. No nausea, vomiting, diarrhea, or blood in the stool or urine. No bowel or bladder incontinence. No dysuria. c/o back pain SUBJECTIVE: The pain has been at a moderate level and tolerable on the Tramadol and Lidoderm patch. He has no new complaints. Objective Last 24 Hour Vital Signs Date Time Temp Pulse Resp B/P Pulse Ox O2 Delivery O2 Flow Rate FiO2 10/06/16 04:00 97.9 69 20 129/76 98 Room Air 10/06/16 00:00 95.7 88 20 136/73 98 Room Air 10/05/16 21:47 96.9 10/05/16 20:41 130/69 10/05/16 20:00 97.6 84 16 108/67 100 Room Air 10/05/16 19:52 73 16 Room Air 10/05/16 16:00 96.9 73 17 106/62 94 Room Air 10/05/16 11:28 98.2 75 20 116/68 95 Room Air 10/05/16 10:18 134/65 10/05/16 09:45 97.5 65 21 134/65 99 Nasal Cannula 3.0 10/05/16 09:30 74 21 143/90 99 Simple Mask 6.0 10/05/16 09:26 71 16 132/75 99 Simple Mask 6.0 10/05/16 09:26 77 17 96 10/05/16 09:21 97.1 69 16 127/65 99 Simple Mask 6.0 10/05/16 08:00 97.0 92 20 113/70 95 Room Air Intake and Output 10/05/16 10/06/16 19:00 07:00 Intake Total 340 ml 2880 ml Output Total 100 ml Balance 240 ml 2880 ml Intake Oral 240 ml 2880 ml IV Total 100 ml Output Urine Total 100 ml # Voids 2 # Bowel Movements 12 Laboratory Tests 10/06/16 06:00: White Blood Count 10.3, Red Blood Count 3.04L, Hemoglobin 9.0L, Hematocrit 28.6L , Mean Corpuscular Volume 94, Mean Corpuscular Hemoglobin 29.6, Mean Corpuscular Hemoglobin Concent 31.5L, Red Cell Distribution Width 24.1H, Platelet Count 325, Mean Platelet Volume 6.6, Neutrophils (%) (Auto) 83.7H, Lymphocytes (%) (Auto) 7.4L, Monocytes (%) (Auto) 7.1, Eosinophils (%) (Auto) 0.7, Basophils (%) (Auto) 1.2, Sodium Level 133L, Potassium Level 3.9, Chloride Level 88L, Carbon Dioxide Level 27, Anion Gap 18H, Blood Urea Nitrogen 60H, Creatinine 3.9H, Estimat Glomerular Filtration Rate 19.1, Glucose Level 66L, Calcium Level 9.0, Phosphorus Level 4.7 Height (Feet): 5 Height (Inches): 5.00 Weight (Pounds): 180 Objective PHYSICAL EXAMINATION: GENERAL: Alert, awake, and oriented. HEENT: PERRLA. NECK: Range of motion is full in all directions. No tenderness to paracervical muscles. No adenopathy. LUNGS: Decreased breath sounds bilaterally. HEART: S1 and S2, regular. ABDOMEN: Obese. BACK: Range of motion is decreased in flexion and extension with tenderness to paraspinous and trapezius muscles. EXTREMITIES: No cyanosis, no clubbing, edema noted on RUE. NEURO: No changes. ARRON EDWARD Oct 06, 2016 07:52
[2016-10-06] MEDS: Nephrovite tab ORAL SCH (08:52)
[2016-10-06] MEDS: Lisinopril 2.5mg tab ORAL SCH ×2 (08:52→21:00)
[2016-10-06] MEDS: Pantoprazole Inj IVP SCH (09:00)
[2016-10-06] MEDS ORDERED: Fleet's Enema 133ml RECTAL ONE (10:00)
--- NOTE | 2016-10-06 10:13 | General Progress Note ---
Assessment/Plan Problem List: (1) GIB (gastrointestinal bleeding) ICD Codes: K92.2 - Gastrointestinal hemorrhage, unspecified SNOMED: 26365598 (2) Cocaine abuse ICD Codes: F14.10 - Cocaine abuse, uncomplicated SNOMED: 14571242, 745762266 (3) ESRD (end stage renal disease) on dialysis ICD Codes: N18.6 - End stage renal disease; Z99.2 - Dependence on renal dialysis SNOMED: 189255460 (4) Anemia in chronic kidney disease ICD Codes: N18.9 - Chronic kidney disease, unspecified; D63.1 - Anemia in chronic kidney disease SNOMED: 150263849, 404024240 Assessment/Plan colonoscopy was canceled todat due to chest pain D/W cardiology resume diet f Subjective ROS Limited/Unobtainable: Yes Allergies: Coded Allergies: No Known Allergies (Unverified , 09/28/16) Subjective c/p chest pain Objective Last 24 Hour Vital Signs Date Time Temp Pulse Resp B/P Pulse Ox O2 Delivery O2 Flow Rate FiO2 10/06/16 08:00 96.6 72 18 108/70 97 Room Air 10/06/16 04:00 97.9 69 20 129/76 98 Room Air 10/06/16 00:00 95.7 88 20 136/73 98 Room Air 10/05/16 21:47 96.9 10/05/16 20:41 130/69 10/05/16 20:00 97.6 84 16 108/67 100 Room Air 10/05/16 19:52 73 16 Room Air 10/05/16 16:00 96.9 73 17 106/62 94 Room Air 10/05/16 11:28 98.2 75 20 116/68 95 Room Air 10/05/16 10:18 134/65 Intake and Output 10/05/16 10/06/16 18:59 06:59 Intake Total 340 ml 2880 ml Output Total 100 ml Balance 240 ml 2880 ml Intake Oral 240 ml 2880 ml IV Total 100 ml Output Urine Total 100 ml # Voids 2 # Bowel Movements 12 Laboratory Tests 10/06/16 06:00: White Blood Count 10.3, Red Blood Count 3.04L, Hemoglobin 9.0L, Hematocrit 28.6L , Mean Corpuscular Volume 94, Mean Corpuscular Hemoglobin 29.6, Mean Corpuscular Hemoglobin Concent 31.5L, Red Cell Distribution Width 24.1H, Platelet Count 325, Mean Platelet Volume 6.6, Neutrophils (%) (Auto) 83.7H, Lymphocytes (%) (Auto) 7.4L, Monocytes (%) (Auto) 7.1, Eosinophils (%) (Auto) 0.7, Basophils (%) (Auto) 1.2, Sodium Level 133L, Potassium Level 3.9, Chloride Level 88L, Carbon Dioxide Level 27, Anion Gap 18H, Blood Urea Nitrogen 60H, Creatinine 3.9H, Estimat Glomerular Filtration Rate 19.1, Glucose Level 66L, Calcium Level 9.0, Phosphorus Level 4.7 Height (Feet): 5 Height (Inches): 5.00 Weight (Pounds): 180 General Appearance: alert EENT: normal ENT inspection Neck: supple Cardiovascular: normal rate Respiratory/Chest: decreased breath sounds Abdomen: normal bowel sounds, non tender, soft Extremities: non-tender JEANETTE WILLETT Oct 06, 2016 10:13
[2016-10-06 10:43] LABS: TROPONIN I < 0.30 ng/mL (<=0.30)
--- NOTE | 2016-10-06 13:13 | General Progress Note ---
Assessment/Plan Problem List: (1) Cocaine abuse ICD Codes: F14.10 - Cocaine abuse, uncomplicated SNOMED: 80643236, 756058444 (2) Chest pain ICD Codes: R07.9 - Chest pain, unspecified SNOMED: 58750667, 130128864 Qualifiers: Qualified Codes: R07.9 - Chest pain, unspecified Status: progressing Assessment/Plan he had chest pain and porcedure was cancelled due ot cp check trop Subjective ROS Limited/Unobtainable: Yes Allergies: Coded Allergies: No Known Allergies (Unverified , 09/28/16) Objective Last 24 Hour Vital Signs Date Time Temp Pulse Resp B/P Pulse Ox O2 Delivery O2 Flow Rate FiO2 10/06/16 08:00 96.6 72 18 108/70 97 Room Air 10/06/16 04:00 97.9 69 20 129/76 98 Room Air 10/06/16 00:00 95.7 88 20 136/73 98 Room Air 10/05/16 21:47 96.9 10/05/16 20:41 130/69 10/05/16 20:00 97.6 84 16 108/67 100 Room Air 10/05/16 19:52 73 16 Room Air 10/05/16 16:00 96.9 73 17 106/62 94 Room Air Intake and Output 10/05/16 10/06/16 18:59 06:59 Intake Total 340 ml 2880 ml Output Total 100 ml Balance 240 ml 2880 ml Intake Oral 240 ml 2880 ml IV Total 100 ml Output Urine Total 100 ml # Voids 2 # Bowel Movements 12 Laboratory Tests 10/06/16 06:00: White Blood Count 10.3, Red Blood Count 3.04L, Hemoglobin 9.0L, Hematocrit 28.6L , Mean Corpuscular Volume 94, Mean Corpuscular Hemoglobin 29.6, Mean Corpuscular Hemoglobin Concent 31.5L, Red Cell Distribution Width 24.1H, Platelet Count 325, Mean Platelet Volume 6.6, Neutrophils (%) (Auto) 83.7H, Lymphocytes (%) (Auto) 7.4L, Monocytes (%) (Auto) 7.1, Eosinophils (%) (Auto) 0.7, Basophils (%) (Auto) 1.2, Sodium Level 133L, Potassium Level 3.9, Chloride Level 88L, Carbon Dioxide Level 27, Anion Gap 18H, Blood Urea Nitrogen 60H, Creatinine 3.9H, Estimat Glomerular Filtration Rate 19.1, Glucose Level 66L, Calcium Level 9.0, Phosphorus Level 4.7 10/06/16 10:20: Troponin I < 0.30 Height (Feet): 5 Height (Inches): 5.00 Weight (Pounds): 180 Cardiovascular: normal rate Liu Elizondo MD Oct 06, 2016 13:12
--- NOTE | 2016-10-06 13:32 | Pulmonology Progress Note ---
Assessment/Plan Problems: (1) Chest pain Assessment & Plan: cardiac vs noncardiac (2) Acute respiratory failure Assessment & Plan: improved (3) Anemia in chronic kidney disease (4) ESRD (end stage renal disease) on dialysis (5) Fluid overload (6) Cocaine abuse (7) Back pain Assessment/Plan cardiac evaluation HD as needed check electrolytes pain control Ekg now Subjective ROS Limited/Unobtainable: No Interval Events: brought to telemetry because of chest pain Allergies: Coded Allergies: No Known Allergies (Unverified , 09/28/16) Objective Last 24 Hour Vital Signs Date Time Temp Pulse Resp B/P Pulse Ox O2 Delivery O2 Flow Rate FiO2 10/06/16 12:00 96.4 78 18 106/57 99 Room Air 10/06/16 08:00 96.6 72 18 108/70 97 Room Air 10/06/16 04:00 97.9 69 20 129/76 98 Room Air 10/06/16 00:00 95.7 88 20 136/73 98 Room Air 10/05/16 21:47 96.9 10/05/16 20:41 130/69 10/05/16 20:00 97.6 84 16 108/67 100 Room Air 10/05/16 19:52 73 16 Room Air 10/05/16 16:00 96.9 73 17 106/62 94 Room Air Intake and Output 10/05/16 10/06/16 19:00 07:00 Intake Total 340 ml 2880 ml Output Total 100 ml Balance 240 ml 2880 ml Intake Oral 240 ml 2880 ml IV Total 100 ml Output Urine Total 100 ml # Voids 2 # Bowel Movements 12 General Appearance: WD/WN HEENT: normocephalic, atraumatic Respiratory/Chest: chest wall non-tender, lungs clear Cardiovascular: normal peripheral pulses, normal rate Abdomen: normal bowel sounds, soft, non tender Genitourinary: normal external genitalia Skin: no rash 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: energy assistant II-XII grossly normal Laboratory Tests 10/06/16 06:00: White Blood Count 10.3, Red Blood Count 3.04L, Hemoglobin 9.0L, Hematocrit 28.6L , Mean Corpuscular Volume 94, Mean Corpuscular Hemoglobin 29.6, Mean Corpuscular Hemoglobin Concent 31.5L, Red Cell Distribution Width 24.1H, Platelet Count 325, Mean Platelet Volume 6.6, Neutrophils (%) (Auto) 83.7H, Lymphocytes (%) (Auto) 7.4L, Monocytes (%) (Auto) 7.1, Eosinophils (%) (Auto) 0.7, Basophils (%) (Auto) 1.2, Sodium Level 133L, Potassium Level 3.9, Chloride Level 88L, Carbon Dioxide Level 27, Anion Gap 18H, Blood Urea Nitrogen 60H, Creatinine 3.9H, Estimat Glomerular Filtration Rate 19.1, Glucose Level 66L, Calcium Level 9.0, Phosphorus Level 4.7 10/06/16 10:20: Troponin I < 0.30 Current Medications Medications (Trade) Dose Ordered Sig/Lillian Route PRN Reason Start Time Stop Time Status Last Admin Dose Admin Acetaminophen (Tylenol) 650 mg Q4H PRN ORAL Fever 10/06/16 15:30 11/05/16 15:29 UNV Dextrose (Dextrose 50%) STAT PRN IV Hypoglycemia 10/06/16 19:30 11/05/16 19:29 UNV Epoetin Joseph (Procrit (for ESRD on dialysis)) 5,000 units MON-WED-TUE SUBQ 10/06/16 21:00 11/05/16 20:59 UNV Insulin Aspart (NovoLOG) BEFORE MEALS AND HS SUBQ 10/06/16 16:30 11/05/16 16:29 UNV Lidocaine (Lidoderm 5% PATCH) 1 patch DAILY TDERMAL 10/07/16 09:00 11/06/16 08:59 UNV Lisinopril (Zestril) 2.5 mg Q12HR ORAL 10/06/16 21:00 11/05/16 20:59 UNV Sodium Chloride 1,000 ml @ 500 mls/hr Q2H PRN IVLG sbp<90 during hd 10/06/16 13:30 11/05/16 13:29 UNV Sodium Chloride (Sodium Chloride 1000ml bag) 1,000 ml @ 500 mls/hr Q2H PRN IVLG sbp<90 during hd 10/06/16 14:00 11/05/16 13:59 UNV CARLOS ALBERTO HERMAN Oct 06, 2016 13:32
[2016-10-06] MEDS ORDERED: Heparin 5000 units/ml inj INJ SCH ×2 (14:00)
[2016-10-06] MEDS ORDERED: Heparin Sod 1000 units/ml 10ml IV PRN (14:00)
[2016-10-06] MEDS ORDERED: Heparin Sod 1000 units/ml 10ml IV ONE (14:00)
[2016-10-06] MEDS ORDERED: NS 275ml ONE (14:20)
[2016-10-06] MEDS ORDERED: Tubing Blood Filter IV ONE (14:20)
[2016-10-06] MEDS ORDERED: DuoNeb 0.5-3(2.5)mg/3ml neb HHN PRN (15:00)
--- NOTE | 2016-10-06 15:23 | Cardiac Electrophysiology PN ---
Assessment/Plan Status Narrative Moderate left ventricular enlargement. Global left ventricular hypokinesis. Worse septal apper akinetic s. Left ventricular ejection fraction estimated to be 30-35 %. No evidence of left ventricular hypertrophy. No evidence of pericardial fat or effusion. Severe right atrial enlargement by 2D. Mild right atrial enlargement by 2D. Focal aortic valve sclerosis with adequate cusp excursion Mildly thickened mitral valve leaflets with normal excursion. Mitral annulus and aortic root calcification. Pulmonic valve is well visualized. Normal tricuspid valve structure. IVC dilated at 2.7cm no physiologic collapse with respiration.RA pressure of 20mmHg. Assessment/Plan 1. Chest pain after using cocaine. Was likely due to vasospasm. The patient was ruled out for myocardial infarction. Avoid beta-david in view of the patient's cocaine use. Had recurrence of chest pain before Colonoscopy.ECG and troponin was negative. Will schedule for nuclear stress test in AM. 2. Severe Cardiomyopathy with EF 30-35%.Avoid Betablocker for cocaine use. On Lisinopril 2.5 bid and dialysis. 3. History of hypertension. On Lisinopril 2.5 bid. 4. End-stage renal disease, on hemodialysis. 5. Substance abuse with cocaine. 6. Anemia due to GI bleed. Stool OB positive. Had EGD. Colonoscopy after stress test. 7. Diabetes. ZOHREH RN and Dr. Bal Subjective Subjective Had chest pain earlier prior to colonoscopy and was transferred to [facility]. Had dialysis today. No SOB.Had EGD yesterday. Colonoscopy today cancelled for CP. Objective Last 24 Hour Vital Signs Date Time Temp Pulse Resp B/P Pulse Ox O2 Delivery O2 Flow Rate FiO2 10/06/16 13:10 Room Air 3.0 21 10/06/16 13:10 96.7 75 18 109/55 99 Room Air 10/06/16 12:00 96.7 71 18 140/79 99 Room Air 10/06/16 08:00 96.6 72 18 108/70 97 Room Air 10/06/16 04:00 97.9 69 20 129/76 98 Room Air 10/06/16 00:00 95.7 88 20 136/73 98 Room Air 10/05/16 21:47 96.9 10/05/16 20:41 130/69 10/05/16 20:00 97.6 84 16 108/67 100 Room Air 10/05/16 19:52 73 16 Room Air 10/05/16 16:00 96.9 73 17 106/62 94 Room Air Intake and Output 10/05/16 10/06/16 19:00 07:00 Intake Total 340 ml 2880 ml Output Total 100 ml Balance 240 ml 2880 ml Intake Oral 240 ml 2880 ml IV Total 100 ml Output Urine Total 100 ml # Voids 2 # Bowel Movements 12 Laboratory Tests Test 10/06/16 06:00 10/06/16 10:20 White Blood Count 10.3 K/UL (4.8-10.8) Red Blood Count 3.04 M/UL (4.70-6.10) L Hemoglobin 9.0 G/DL (14.2-18.0) L Hematocrit 28.6 % (42.0-52.0) L Mean Corpuscular Volume 94 FL (80-99) Mean Corpuscular Hemoglobin 29.6 PG (27.0-31.0) Mean Corpuscular Hemoglobin Concent 31.5 G/DL (32.0-36.0) L Red Cell Distribution Width 24.1 % (11.6-14.8) H Platelet Count 325 K/UL (150-450) Mean Platelet Volume 6.6 FL (6.5-10.1) Neutrophils (%) (Auto) 83.7 % (45.0-75.0) H Lymphocytes (%) (Auto) 7.4 % (20.0-45.0) L Monocytes (%) (Auto) 7.1 % (1.0-10.0) Eosinophils (%) (Auto) 0.7 % (0.0-3.0) Basophils (%) (Auto) 1.2 % (0.0-2.0) Sodium Level 133 mEQ/L (135-145) L Potassium Level 3.9 mEQ/L (3.4-4.9) Chloride Level 88 mEQ/L (98-107) L Carbon Dioxide Level 27 mEQ/L (20-30) Anion Gap 18 (5-15) H Blood Urea Nitrogen 60 mg/dL (7-23) H Creatinine 3.9 mg/dL (0.7-1.2) H Estimat Glomerular Filtration Rate 19.1 mL/min (>60) Glucose Level 66 mg/dL (74-106) L Calcium Level 9.0 mg/dL (8.6-10.2) Phosphorus Level 4.7 mg/dL (2.5-4.8) Troponin I < 0.30 ng/mL (<=0.30) Objective HEAD AND NECK: Showed no jugular venous distention or carotid bruits. LUNGS: Clear. CARDIOVASCULAR: Shows regular S1 and S2 with no gallop or murmur. ABDOMEN: Soft and nontender. EXTREMITIES: No pitting edema. He has a dialysis access in the right chest. DILIA GUERRERO Oct 06, 2016 15:23
--- NOTE | 2016-10-06 16:04 | General Progress Note ---
Assessment/Plan Status: stable Assessment/Plan Status: (1) ESRD (end stage renal disease) on dialysis (2) Chest pain (3) Cocaine abuse (4) Anemia in chronic kidney disease (5) ? DVT right UE (6) Cardiomyopathy: Global left ventricular hypokinesis. Worse septal apper akinetic s. Left ventricular ejection fraction estimated to be 30-35 %. Plan: Last HD 10/01 Next HD done Vebnous duplex right UE Onace inhibitors- per consultants ? DC planning Subjective ROS Limited/Unobtainable: No Constitutional: Reports: malaise Allergies: Coded Allergies: No Known Allergies (Unverified , 09/28/16) Objective Last 24 Hour Vital Signs Date Time Temp Pulse Resp B/P Pulse Ox O2 Delivery O2 Flow Rate FiO2 10/06/16 13:10 Room Air 3.0 21 10/06/16 13:10 96.7 75 18 109/55 99 Room Air 10/06/16 12:00 96.7 71 18 140/79 99 Room Air 10/06/16 08:00 96.6 72 18 108/70 97 Room Air 10/06/16 04:00 97.9 69 20 129/76 98 Room Air 10/06/16 00:00 95.7 88 20 136/73 98 Room Air 10/05/16 21:47 96.9 10/05/16 20:41 130/69 10/05/16 20:00 97.6 84 16 108/67 100 Room Air 10/05/16 19:52 73 16 Room Air Intake and Output 10/05/16 10/06/16 19:00 07:00 Intake Total 340 ml 2880 ml Output Total 100 ml Balance 240 ml 2880 ml Intake Oral 240 ml 2880 ml IV Total 100 ml Output Urine Total 100 ml # Voids 2 # Bowel Movements 12 Laboratory Tests 10/06/16 06:00: White Blood Count 10.3, Red Blood Count 3.04L, Hemoglobin 9.0L, Hematocrit 28.6L , Mean Corpuscular Volume 94, Mean Corpuscular Hemoglobin 29.6, Mean Corpuscular Hemoglobin Concent 31.5L, Red Cell Distribution Width 24.1H, Platelet Count 325, Mean Platelet Volume 6.6, Neutrophils (%) (Auto) 83.7H, Lymphocytes (%) (Auto) 7.4L, Monocytes (%) (Auto) 7.1, Eosinophils (%) (Auto) 0.7, Basophils (%) (Auto) 1.2, Sodium Level 133L, Potassium Level 3.9, Chloride Level 88L, Carbon Dioxide Level 27, Anion Gap 18H, Blood Urea Nitrogen 60H, Creatinine 3.9H, Estimat Glomerular Filtration Rate 19.1, Glucose Level 66L, Calcium Level 9.0, Phosphorus Level 4.7 10/06/16 10:20: Troponin I < 0.30 Height (Feet): 5 Height (Inches): 5.00 Weight (Pounds): 180 General Appearance: no apparent distress Objective no change in PE KALEY RIOS Oct 06, 2016 16:04
--- NOTE | 2016-10-06 16:53 | General Progress Note ---
Assessment/Plan Assessment/Plan ASSESSMENT: 1. Anemia secondary to end-stage renal disease. Ferritin is 711. Remains on epogen 2. Acute drop in hgb, consider GI bleed, to have colo/egd after cardiac eval 3. Thrombocytopenia potentially secondary to underlying infection. hep and hiv - , now better 4. Coagulopathy INR is 1.4 5. Diabetes mellitus. 6. End-stage renal disease on hemodialysis. 7. Cocaine use history. RECOMMENDATIONS: 1. Monitor counts. 2. Transfuse if hemoglobin less than 7.5. 3. Continue epogen 4. Followup GI recs 5. Ultrasound of the abdomen reviewed 6. Gi recs regarding endoscopy 7. Anemia workup has been reviewed 8. Followup on Nephrology, Pulmonary, and Cardiology recommendations 9. DVT prophylaxis with scds 10. GI prophylaxis prn 11. Pain control. 12. staff. Thank you, Hugh Lopez MD Subjective Constitutional: Reports: no symptoms HEENT: Reports: no symptoms Cardiovascular: Reports: no symptoms Respiratory: Reports: no symptoms Gastrointestinal/Abdominal: Reports: poor appetite Genitourinary: Reports: no symptoms 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: Reports: no symptoms Endocrine: Reports: no symptoms Hematologic/Lymphatic: Reports: anemia Allergies: Coded Allergies: No Known Allergies (Unverified , 09/28/16) Subjective H/H is stable, pending stress test in am Objective Last 24 Hour Vital Signs Date Time Temp Pulse Resp B/P Pulse Ox O2 Delivery O2 Flow Rate FiO2 10/06/16 16:00 97.5 87 20 91/60 93 Room Air 10/06/16 13:10 Room Air 3.0 21 10/06/16 13:10 96.7 75 18 109/55 99 Room Air 10/06/16 12:00 96.7 71 18 140/79 99 Room Air 10/06/16 08:00 96.6 72 18 108/70 97 Room Air 10/06/16 04:00 97.9 69 20 129/76 98 Room Air 10/06/16 00:00 95.7 88 20 136/73 98 Room Air 10/05/16 21:47 96.9 10/05/16 20:41 130/69 10/05/16 20:00 97.6 84 16 108/67 100 Room Air 10/05/16 19:52 73 16 Room Air Intake and Output 10/05/16 10/06/16 19:00 07:00 Intake Total 340 ml 2880 ml Output Total 100 ml Balance 240 ml 2880 ml Intake Oral 240 ml 2880 ml IV Total 100 ml Output Urine Total 100 ml # Voids 2 # Bowel Movements 12 Laboratory Tests 10/06/16 06:00: White Blood Count 10.3, Red Blood Count 3.04L, Hemoglobin 9.0L, Hematocrit 28.6L , Mean Corpuscular Volume 94, Mean Corpuscular Hemoglobin 29.6, Mean Corpuscular Hemoglobin Concent 31.5L, Red Cell Distribution Width 24.1H, Platelet Count 325, Mean Platelet Volume 6.6, Neutrophils (%) (Auto) 83.7H, Lymphocytes (%) (Auto) 7.4L, Monocytes (%) (Auto) 7.1, Eosinophils (%) (Auto) 0.7, Basophils (%) (Auto) 1.2, Sodium Level 133L, Potassium Level 3.9, Chloride Level 88L, Carbon Dioxide Level 27, Anion Gap 18H, Blood Urea Nitrogen 60H, Creatinine 3.9H, Estimat Glomerular Filtration Rate 19.1, Glucose Level 66L, Calcium Level 9.0, Phosphorus Level 4.7 10/06/16 10:20: Troponin I < 0.30 Height (Feet): 5 Height (Inches): 5.00 Weight (Pounds): 180 General Appearance: no apparent distress EENT: TMs normal Neck: normal alignment Cardiovascular: regular rhythm Respiratory/Chest: normal breath sounds Abdomen: no mass Extremities: non-tender Edema: 1+ Leg (L), 1+ Leg (R) Edema: mild edema Neurologic: alert Skin: warm/dry Hugh Lopez Oct 06, 2016 16:53
[2016-10-06] MEDS: traMADol 50mg tab ORAL PRN (17:06)
--- NOTE | 2016-10-06 17:54 | Infectious Diseases Prog Note ---
Assessment/Plan Problems: (1) Colonization with VRE (vancomycin-resistant enterococcus) Assessment & Plan: keep in contact isolation (2) ESRD (end stage renal disease) on dialysis Assessment & Plan: continue HD as per renal. (3) Cocaine abuse Assessment & Plan: recommend counseling and rehab (4) Chest pain Assessment & Plan: evaluation as per primary (5) Anemia in chronic kidney disease Assessment & Plan: stable, monitor H/H transfuse as needed Subjective Constitutional: Reports: no symptoms HEENT: Reports: no symptoms Respiratory: Reports: no symptoms Breasts: Reports: no symptoms Cardiovascular: Reports: no symptoms Gastrointestinal/Abdominal: Reports: no symptoms Genitourinary: Reports: no symptoms Neurologic: Reports: no symptoms Psychiatric: Reports: no symptoms Skin: Reports: no symptoms Endocrine: Reports: no symptoms Allergies: Coded Allergies: No Known Allergies (Unverified , 09/28/16) Subjective he was doing well today, denied any symptoms. Objective Vital Signs Last 24 Hour Vital Signs Date Time Temp Pulse Resp B/P Pulse Ox O2 Delivery O2 Flow Rate FiO2 10/06/16 16:00 97.5 87 20 91/60 93 Room Air 10/06/16 13:10 Room Air 3.0 21 10/06/16 13:10 96.7 75 18 109/55 99 Room Air 10/06/16 12:00 96.7 71 18 140/79 99 Room Air 10/06/16 08:00 96.6 72 18 108/70 97 Room Air 10/06/16 04:00 97.9 69 20 129/76 98 Room Air 10/06/16 00:00 95.7 88 20 136/73 98 Room Air 10/05/16 21:47 96.9 10/05/16 20:41 130/69 10/05/16 20:00 97.6 84 16 108/67 100 Room Air 10/05/16 19:52 73 16 Room Air Height (Feet): 5 Height (Inches): 5.00 Weight (Pounds): 180 General Appearance: WD/WN, no acute distress HEENT: normocephalic, atraumatic, anicteric, mucous membranes moist Respiratory/Chest: chest wall non-tender, lungs clear, normal breath sounds, no respiratory distress, no accessory muscle use Cardiovascular: normal peripheral pulses, normal rate, regular rhythm, no gallop/murmur Abdomen: normal bowel sounds, soft, non tender, no organomegaly, non distended , no mass Extremities: no cyanosis, no clubbing Skin: no rash, no lesions Laboratory Tests Test 10/06/16 06:00 10/06/16 10:20 White Blood Count 10.3 K/UL (4.8-10.8) Red Blood Count 3.04 M/UL (4.70-6.10) L Hemoglobin 9.0 G/DL (14.2-18.0) L Hematocrit 28.6 % (42.0-52.0) L Mean Corpuscular Volume 94 FL (80-99) Mean Corpuscular Hemoglobin 29.6 PG (27.0-31.0) Mean Corpuscular Hemoglobin Concent 31.5 G/DL (32.0-36.0) L Red Cell Distribution Width 24.1 % (11.6-14.8) H Platelet Count 325 K/UL (150-450) Mean Platelet Volume 6.6 FL (6.5-10.1) Neutrophils (%) (Auto) 83.7 % (45.0-75.0) H Lymphocytes (%) (Auto) 7.4 % (20.0-45.0) L Monocytes (%) (Auto) 7.1 % (1.0-10.0) Eosinophils (%) (Auto) 0.7 % (0.0-3.0) Basophils (%) (Auto) 1.2 % (0.0-2.0) Sodium Level 133 mEQ/L (135-145) L Potassium Level 3.9 mEQ/L (3.4-4.9) Chloride Level 88 mEQ/L (98-107) L Carbon Dioxide Level 27 mEQ/L (20-30) Anion Gap 18 (5-15) H Blood Urea Nitrogen 60 mg/dL (7-23) H Creatinine 3.9 mg/dL (0.7-1.2) H Estimat Glomerular Filtration Rate 19.1 mL/min (>60) Glucose Level 66 mg/dL (74-106) L Calcium Level 9.0 mg/dL (8.6-10.2) Phosphorus Level 4.7 mg/dL (2.5-4.8) Troponin I < 0.30 ng/mL (<=0.30) Current Medications Medications (Trade) Dose Ordered Sig/Lillian Route PRN Reason Start Time Stop Time Status Last Admin Dose Admin Acetaminophen (Tylenol) 650 mg Q4H PRN ORAL Fever 10/06/16 15:30 11/05/16 15:29 Albuterol/ Ipratropium (DuoNeb 0.5-3(2.5)mg/3ml) 3 ml Q4H PRN HHN Shortness of Breath 10/06/16 15:00 10/11/16 14:59 Dextrose (Dextrose 50%) STAT PRN IV Hypoglycemia 10/06/16 19:30 11/05/16 19:29 Epoetin Joseph (Procrit (for ESRD on dialysis)) 5,000 units MON-WED-TUE SUBQ 10/06/16 21:00 11/05/16 20:59 Heparin Sodium (Porcine) (Heparin 5000 units/ml) 5,000 units POSTHD INJ 10/06/16 14:00 10/06/16 23:59 Heparin Sodium (Porcine) (Heparin Sod 1000 units/ml 10ml) 2,000 unit ONCE PRN IV FOR HD 10/06/16 14:00 10/06/16 23:59 Insulin Aspart (NovoLOG) BEFORE MEALS AND HS SUBQ 10/06/16 16:30 11/05/16 16:29 Lidocaine (Lidoderm 5% PATCH) 1 patch DAILY TDERMAL 10/07/16 09:00 11/06/16 08:59 Lisinopril (Zestril) 2.5 mg Q12HR ORAL 10/06/16 21:00 11/05/16 20:59 Ondansetron HCl (Zofran) 4 mg Q6H PRN IVP Nausea & Vomiting 10/06/16 13:30 11/05/16 13:29 Pantoprazole (Protonix) 40 mg DAILY ORAL 10/07/16 09:00 11/06/16 08:59 Polyethylene Glycol (Miralax) 17 gm DAILYPRN PRN ORAL Constipation 10/06/16 19:30 11/05/16 19:29 Sodium Chloride (Sodium Chloride 1000ml bag) 1,000 ml @ 500 mls/hr Q2H PRN IVLG sbp<90 during hd 10/06/16 13:30 10/06/16 23:59 Temazepam (Restoril) 15 mg HSPRN PRN ORAL Insomnia 10/06/16 19:30 10/13/16 19:29 Tramadol HCl (Ultram) 50 mg Q4H PRN ORAL moderate pain 10/06/16 16:15 10/13/16 16:14 10/06/16 17:06 Vitamin B Complex/ Vit C/Folic Acid (Nephrovite) 1 tab DAILY ORAL 10/07/16 09:00 11/06/16 08:59 Ivania Bhardwaj M.D. Oct 06, 2016 17:54
[2016-10-06] MEDS: Epogen (for ESRD on dialysis) SUBQ SCH (21:53)
[2016-10-07 00:24] VITALS: BP 118/68
[2016-10-07 04:10] VITALS: BP 103/58
[2016-10-07] MEDS: NovoLOG Insulin Flexpen SUBQ SCH ×4 (06:52→21:00)
[2016-10-07 08:13] LABS: BASOPHILS % (AUTO) 1.1 % (0.0-2.0); EOSINOPHILS % (AUTO) 1.3 % (0.0-3.0); LYMPHOCYTES % (AUTO) 7.6 % (20.0-45.0); MEAN CORPUSCULAR HEMOGLOBIN 29.5 PG (27.0-31.0); MEAN CORPUSCULAR HGB CONC 31.2 G/DL (32.0-36.0); MEAN CORPUSCULAR VOLUME 95 FL (80-99); MONOCYTES % (AUTO) 9.5 % (1.0-10.0); NEUTROPHILS % (AUTO) 80.6 % (45.0-75.0); PLATELET COUNT 288 K/UL (150-450); RED BLOOD COUNT 2.82 M/UL (4.70-6.10); RED CELL DISTRIBUTION WIDTH 24.4 % (11.6-14.8); WHITE BLOOD COUNT 7.5 K/UL (4.8-10.8)
--- NOTE | 2016-10-07 08:20 | General Progress Note ---
Assessment/Plan Assessment/Plan ASSESSMENT: 1. Anemia secondary to end-stage renal disease. Ferritin is 711. Remains on epogen 2. Acute drop in hgb, consider GI bleed, to have colo/egd after cardiac eval 3. Thrombocytopenia potentially secondary to underlying infection. hep and hiv - , now better 4. Coagulopathy INR is 1.2, improved 5. Diabetes mellitus. 6. End-stage renal disease on hemodialysis. 7. Cocaine use history. RECOMMENDATIONS: 1. Monitor counts. 2. Transfuse if hemoglobin less than 7.5. 3. Continue epogen 4. Followup GI recs 5. Ultrasound of the abdomen reviewed 6. Gi recs regarding endoscopy 7. Anemia workup has been reviewed 8. Followup on Nephrology, Pulmonary, and Cardiology recommendations 9. DVT prophylaxis with scds 10. GI prophylaxis prn 11. Pain control. 12. staff. Thank you, Hugh Lopez MD Subjective Constitutional: Reports: no symptoms HEENT: Reports: no symptoms Cardiovascular: Reports: no symptoms Respiratory: Reports: no symptoms Gastrointestinal/Abdominal: Reports: poor appetite Genitourinary: Reports: no symptoms 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: Reports: no symptoms Endocrine: Reports: no symptoms Hematologic/Lymphatic: Reports: anemia Allergies: Coded Allergies: No Known Allergies (Unverified , 09/28/16) Subjective awake, alert and oriented Objective Last 24 Hour Vital Signs Date Time Temp Pulse Resp B/P Pulse Ox O2 Delivery O2 Flow Rate FiO2 10/07/16 04:10 98.7 86 19 103/58 93 Room Air 10/07/16 00:24 98.3 95 20 118/68 97 Room Air 10/07/16 00:22 80 10/06/16 21:00 97/60 10/06/16 20:00 97.6 92 21 97/60 100 Room Air 10/06/16 19:56 102 10/06/16 19:42 82 18 Room Air 21 10/06/16 16:00 97.5 87 20 91/60 93 Room Air 10/06/16 13:10 Room Air 3.0 21 10/06/16 13:10 96.7 75 18 109/55 99 Room Air 10/06/16 12:00 96.7 71 18 140/79 99 Room Air Intake and Output 10/06/16 10/07/16 19:00 07:00 Intake Total 660 ml Output Total 2600 ml 300 ml Balance -1940 ml -300 ml Intake Oral 660 ml Output Urine Total 300 ml Hemodialysis UF 2600 ml # Voids 3 2 # Bowel Movements 7 Laboratory Tests 10/06/16 10:20: Troponin I < 0.30 10/07/16 07:35: White Blood Count [Pending], Red Blood Count [Pending], Hemoglobin [Pending], Hematocrit [Pending], Mean Corpuscular Volume [Pending], Mean Corpuscular Hemoglobin [Pending], Mean Corpuscular Hemoglobin Concent [Pending], Red Cell Distribution Width [Pending], Platelet Count [Pending], Mean Platelet Volume [ Pending], Neutrophils (%) (Auto) [Pending], Lymphocytes (%) (Auto) [Pending], Monocytes (%) (Auto) [Pending], Eosinophils (%) (Auto) [Pending], Basophils (%) (Auto) [Pending], Sodium Level [Pending], Potassium Level [Pending], Chloride Level [Pending], Carbon Dioxide Level [Pending], Blood Urea Nitrogen [Pending], Creatinine [Pending], Estimat Glomerular Filtration Rate [Pending], Glucose Level [Pending], Uric Acid [Pending], Calcium Level [Pending], Phosphorus Level [Pending], Magnesium Level [Pending], Total Bilirubin [Pending], Aspartate Amino Transf (AST/SGOT) [Pending], Alanine Aminotransferase (ALT/SGPT) [Pending] , Alkaline Phosphatase [Pending], C-Reactive Protein, Quantitative [Pending], Pro-B-Type Natriuretic Peptide [Pending], Total Protein [Pending], Albumin [ Pending], Globulin [Pending] Height (Feet): 5 Height (Inches): 5.00 Weight (Pounds): 180 General Appearance: no apparent distress EENT: normal ENT inspection Neck: normal alignment Cardiovascular: regular rhythm Respiratory/Chest: normal breath sounds Abdomen: soft Extremities: non-tender Edema: no edema noted Leg (L), no edema noted Leg (R) Edema: mild edema Neurologic: alert Skin: warm/dry Hugh Lopez Oct 07, 2016 08:20
[2016-10-07 08:21] LABS: CALCIUM 8.6 mg/dL (8.6-10.2); CREATININE 3.8 mg/dL (0.7-1.2); CRP QUANT 2.8 mg/dL (< 0.5); GLOMERULAR FILTRATION RATE 19.8 mL/min (>60); MAGNESIUM 1.8 mg/dL (1.7-2.5); PHOSPHORUS 4.5 mg/dL (2.5-4.8); TOTAL PROTEIN 6.2 g/dL (6.6-8.7); URIC ACID 5.4 mg/dL (3.0-7.5)
[2016-10-07 08:24] VITALS: BP 117/67
[2016-10-07] MEDS: Nephrovite tab ORAL SCH (09:09)
[2016-10-07] MEDS: Lisinopril 2.5mg tab ORAL SCH ×2 (09:09→21:00)
--- NOTE | 2016-10-07 11:00 | GI Progress Note ---
Assessment/Plan Problems: (1) GIB (gastrointestinal bleeding) ICD Codes: K92.2 - Gastrointestinal hemorrhage, unspecified SNOMED: 25453570 (2) Cocaine abuse ICD Codes: F14.10 - Cocaine abuse, uncomplicated SNOMED: 05778747, 568217146 (3) Anemia in chronic kidney disease ICD Codes: N18.9 - Chronic kidney disease, unspecified; D63.1 - Anemia in chronic kidney disease SNOMED: 771910344, 650570802 (4) Chest pain ICD Codes: R07.9 - Chest pain, unspecified SNOMED: 23773406, 716287110 Qualifiers: Qualified Codes: R07.9 - Chest pain, unspecified Status: unchanged Status Narrative Discussed with Dr. Bal. Assessment/Plan colonoscopy was yesterday due to chest pain stress test pending today D/W cardiology cardiac diet monitor H&H, transfuse prn OB stool positive x 3 ppi fu labs Subjective Subjective chest pain Objective Last 24 Hour Vital Signs Date Time Temp Pulse Resp B/P Pulse Ox O2 Delivery O2 Flow Rate FiO2 10/07/16 09:09 117/67 10/07/16 08:24 96.9 93 20 117/67 98 Room Air 10/07/16 08:00 107 10/07/16 04:10 98.7 86 19 103/58 93 Room Air 10/07/16 00:24 98.3 95 20 118/68 97 Room Air 10/07/16 00:22 80 10/06/16 21:00 97/60 10/06/16 20:00 97.6 92 21 97/60 100 Room Air 10/06/16 19:56 102 10/06/16 19:42 82 18 Room Air 21 10/06/16 16:00 97.5 87 20 91/60 93 Room Air 10/06/16 13:10 Room Air 3.0 21 10/06/16 13:10 96.7 75 18 109/55 99 Room Air 10/06/16 12:00 96.7 71 18 140/79 99 Room Air Intake and Output 10/06/16 10/07/16 19:00 07:00 Intake Total 660 ml Output Total 2600 ml 300 ml Balance -1940 ml -300 ml Intake Oral 660 ml Output Urine Total 300 ml Hemodialysis UF 2600 ml # Voids 3 2 # Bowel Movements 7 Laboratory Tests Test 10/07/16 07:35 White Blood Count 7.5 K/UL (4.8-10.8) Red Blood Count 2.82 M/UL (4.70-6.10) L Hemoglobin 8.3 G/DL (14.2-18.0) L Hematocrit 26.7 % (42.0-52.0) L Mean Corpuscular Volume 95 FL (80-99) Mean Corpuscular Hemoglobin 29.5 PG (27.0-31.0) Mean Corpuscular Hemoglobin Concent 31.2 G/DL (32.0-36.0) L Red Cell Distribution Width 24.4 % (11.6-14.8) H Platelet Count 288 K/UL (150-450) Mean Platelet Volume 7.0 FL (6.5-10.1) Neutrophils (%) (Auto) 80.6 % (45.0-75.0) H Lymphocytes (%) (Auto) 7.6 % (20.0-45.0) L Monocytes (%) (Auto) 9.5 % (1.0-10.0) Eosinophils (%) (Auto) 1.3 % (0.0-3.0) Basophils (%) (Auto) 1.1 % (0.0-2.0) Sodium Level 139 mEQ/L (135-145) Potassium Level 4.0 mEQ/L (3.4-4.9) Chloride Level 95 mEQ/L (98-107) L Carbon Dioxide Level 27 mEQ/L (20-30) Anion Gap 17 (5-15) H Blood Urea Nitrogen 44 mg/dL (7-23) H Creatinine 3.8 mg/dL (0.7-1.2) H Estimat Glomerular Filtration Rate 19.8 mL/min (>60) Glucose Level 86 mg/dL (74-106) Uric Acid 5.4 mg/dL (3.0-7.5) Calcium Level 8.6 mg/dL (8.6-10.2) Phosphorus Level 4.5 mg/dL (2.5-4.8) Magnesium Level 1.8 mg/dL (1.7-2.5) Total Bilirubin 1.8 mg/dL (0.0-1.2) H Direct Bilirubin 1.0 mg/dL (0.1-0.3) H Aspartate Amino Transf (AST/SGOT) 20 U/L (5-40) Alanine Aminotransferase (ALT/SGPT) 7 U/L (3-41) Alkaline Phosphatase 123 U/L (40-129) C-Reactive Protein, Quantitative 2.8 mg/dL (< 0.5) H Pro-B-Type Natriuretic Peptide 42016 pg/mL (0-125) H Total Protein 6.2 g/dL (6.6-8.7) L Albumin 3.1 g/dL (3.5-5.2) L Globulin 3.1 g/dL Albumin/Globulin Ratio 1.0 (1.0-2.7) Height (Feet): 5 Height (Inches): 5.00 Weight (Pounds): 180 General Appearance: no apparent distress, alert, obese Cardiovascular: normal rate Respiratory/Chest: no respiratory distress Abdominal Exam: normal bowel sounds, non tender, soft Sole Lucio N.Hernesto Oct 07, 2016 11:00
[2016-10-07 11:59] VITALS: BP 123/74
--- NOTE | 2016-10-07 12:00 | Pulmonology Progress Note ---
Assessment/Plan Problems: (1) Chest pain Assessment & Plan: cardiac vs noncardiac (2) Acute respiratory failure Assessment & Plan: improved (3) Anemia in chronic kidney disease (4) ESRD (end stage renal disease) on dialysis (5) Fluid overload (6) Cocaine abuse (7) Back pain Assessment/Plan cardiac evaluation HD as needed check electrolytes pain control Ekg now stress test today EGD and colonoscopy after stress test. Subjective ROS Limited/Unobtainable: No Constitutional: Reports: no symptoms HEENT: Repors: no symptoms Respiratory: Reports: no symptoms Allergies: Coded Allergies: No Known Allergies (Unverified , 09/28/16) Objective Last 24 Hour Vital Signs Date Time Temp Pulse Resp B/P Pulse Ox O2 Delivery O2 Flow Rate FiO2 10/07/16 09:09 117/67 10/07/16 08:24 96.9 93 20 117/67 98 Room Air 10/07/16 08:00 107 10/07/16 04:10 98.7 86 19 103/58 93 Room Air 10/07/16 00:24 98.3 95 20 118/68 97 Room Air 10/07/16 00:22 80 10/06/16 21:00 97/60 10/06/16 20:00 97.6 92 21 97/60 100 Room Air 10/06/16 19:56 102 10/06/16 19:42 82 18 Room Air 21 10/06/16 16:00 97.5 87 20 91/60 93 Room Air 10/06/16 13:10 Room Air 3.0 21 10/06/16 13:10 96.7 75 18 109/55 99 Room Air 10/06/16 12:00 96.7 71 18 140/79 99 Room Air Intake and Output 10/06/16 10/07/16 19:00 07:00 Intake Total 660 ml Output Total 2600 ml 300 ml Balance -1940 ml -300 ml Intake Oral 660 ml Output Urine Total 300 ml Hemodialysis UF 2600 ml # Voids 3 2 # Bowel Movements 7 General Appearance: WD/WN Respiratory/Chest: chest wall non-tender, lungs clear Cardiovascular: normal peripheral pulses, normal rate Abdomen: normal bowel sounds, soft, non tender Skin: no rash 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: 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 grossly normal Laboratory Tests 10/07/16 07:35: White Blood Count 7.5, Red Blood Count 2.82L, Hemoglobin 8.3L, Hematocrit 26.7L , Mean Corpuscular Volume 95, Mean Corpuscular Hemoglobin 29.5, Mean Corpuscular Hemoglobin Concent 31.2L, Red Cell Distribution Width 24.4H, Platelet Count 288, Mean Platelet Volume 7.0, Neutrophils (%) (Auto) 80.6H, Lymphocytes (%) (Auto) 7.6L, Monocytes (%) (Auto) 9.5, Eosinophils (%) (Auto) 1.3, Basophils (%) (Auto) 1.1, Sodium Level 139, Potassium Level 4.0, Chloride Level 95L, Carbon Dioxide Level 27, Anion Gap 17H, Blood Urea Nitrogen 44H, Creatinine 3.8H, Estimat Glomerular Filtration Rate 19.8, Glucose Level 86, Uric Acid 5.4, Calcium Level 8.6, Phosphorus Level 4.5, Magnesium Level 1.8, Total Bilirubin 1.8H, Direct Bilirubin 1.0H, Aspartate Amino Transf (AST/SGOT) 20, Alanine Aminotransferase (ALT/SGPT) 7, Alkaline Phosphatase 123, C-Reactive Protein, Quantitative 2.8H, Pro-B-Type Natriuretic Peptide 76901X, Total Protein 6.2L, Albumin 3.1L, Globulin 3.1, Albumin/Globulin Ratio 1.0 Current Medications Medications (Trade) Dose Ordered Sig/Lillian Route PRN Reason Start Time Stop Time Status Last Admin Dose Admin Acetaminophen (Tylenol) 650 mg Q4H PRN ORAL Fever 10/06/16 15:30 11/05/16 15:29 Albuterol/ Ipratropium (DuoNeb 0.5-3(2.5)mg/3ml) 3 ml Q4H PRN HHN Shortness of Breath 10/06/16 15:00 10/11/16 14:59 Dextrose (Dextrose 50%) STAT PRN IV Hypoglycemia 10/06/16 19:30 11/05/16 19:29 Epoetin Joseph (Procrit (for ESRD on dialysis)) 5,000 units MON-WED-TUE SUBQ 10/06/16 21:00 11/05/16 20:59 10/06/16 21:53 Insulin Aspart (NovoLOG) BEFORE MEALS AND HS SUBQ 10/06/16 16:30 11/05/16 16:29 Lidocaine (Lidoderm 5% PATCH) 1 patch DAILY TDERMAL 10/07/16 09:00 11/06/16 08:59 10/07/16 09:10 Lisinopril (Zestril) 2.5 mg Q12HR ORAL 10/06/16 21:00 11/05/16 20:59 10/07/16 09:09 Ondansetron HCl (Zofran) 4 mg Q6H PRN IVP Nausea & Vomiting 10/06/16 13:30 11/05/16 13:29 Pantoprazole (Protonix) 40 mg DAILY ORAL 10/07/16 09:00 11/06/16 08:59 10/07/16 09:09 Polyethylene Glycol (Miralax) 17 gm DAILYPRN PRN ORAL Constipation 10/06/16 19:30 11/05/16 19:29 Temazepam (Restoril) 15 mg HSPRN PRN ORAL Insomnia 10/06/16 19:30 10/13/16 19:29 Tramadol HCl (Ultram) 50 mg Q4H PRN ORAL moderate pain 10/06/16 16:15 10/13/16 16:14 10/06/16 17:06 Vitamin B Complex/ Vit C/Folic Acid (Nephrovite) 1 tab DAILY ORAL 10/07/16 09:00 11/06/16 08:59 10/07/16 09:09 CARLOS ALBERTO HERMAN Oct 07, 2016 12:00
[2016-10-07] MEDS ORDERED: Adenosine 90 mg/30mL vial IVP ONE (13:45)
[2016-10-07 16:00] VITALS: BP 118/73
--- NOTE | 2016-10-07 16:06 | Nephrology Progress Note ---
Assessment/Plan Problem List: (1) ESRD (end stage renal disease) on dialysis (2) Chest pain (3) Cocaine abuse (4) Anemia in chronic kidney disease Plan HD tomorrow cont Epogen follow labs Subjective Subjective In NAD Objective Objective Last 24 Hour Vital Signs Date Time Temp Pulse Resp B/P Pulse Ox O2 Delivery O2 Flow Rate FiO2 10/07/16 13:45 94 10/07/16 11:59 97.0 94 20 123/74 96 Room Air 10/07/16 09:09 117/67 10/07/16 08:24 96.9 93 20 117/67 98 Room Air 10/07/16 08:00 107 10/07/16 07:09 88 18 Room Air 21 10/07/16 04:10 98.7 86 19 103/58 93 Room Air 10/07/16 00:24 98.3 95 20 118/68 97 Room Air 10/07/16 00:22 80 10/06/16 21:00 97/60 10/06/16 20:00 97.6 92 21 97/60 100 Room Air 10/06/16 19:56 102 10/06/16 19:42 82 18 Room Air 21 Intake and Output 10/06/16 10/07/16 19:00 07:00 Intake Total 660 ml Output Total 2600 ml 300 ml Balance -1940 ml -300 ml Intake Oral 660 ml Output Urine Total 300 ml Hemodialysis UF 2600 ml # Voids 3 2 # Bowel Movements 7 Laboratory Tests 10/07/16 07:35: White Blood Count 7.5, Red Blood Count 2.82L, Hemoglobin 8.3L, Hematocrit 26.7L , Mean Corpuscular Volume 95, Mean Corpuscular Hemoglobin 29.5, Mean Corpuscular Hemoglobin Concent 31.2L, Red Cell Distribution Width 24.4H, Platelet Count 288, Mean Platelet Volume 7.0, Neutrophils (%) (Auto) 80.6H, Lymphocytes (%) (Auto) 7.6L, Monocytes (%) (Auto) 9.5, Eosinophils (%) (Auto) 1.3, Basophils (%) (Auto) 1.1, Sodium Level 139, Potassium Level 4.0, Chloride Level 95L, Carbon Dioxide Level 27, Anion Gap 17H, Blood Urea Nitrogen 44H, Creatinine 3.8H, Estimat Glomerular Filtration Rate 19.8, Glucose Level 86, Uric Acid 5.4, Calcium Level 8.6, Phosphorus Level 4.5, Magnesium Level 1.8, Total Bilirubin 1.8H, Direct Bilirubin 1.0H, Aspartate Amino Transf (AST/SGOT) 20, Alanine Aminotransferase (ALT/SGPT) 7, Alkaline Phosphatase 123, C-Reactive Protein, Quantitative 2.8H, Pro-B-Type Natriuretic Peptide 64753G, Total Protein 6.2L, Albumin 3.1L, Globulin 3.1, Albumin/Globulin Ratio 1.0 Height (Feet): 5 Height (Inches): 5.00 Weight (Pounds): 180 Cardiovascular: normal rate Respiratory/Chest: lungs clear Extremities: moderate edema HAI BURGESS Oct 07, 2016 16:06
--- NOTE | 2016-10-07 16:34 | General Progress Note ---
Assessment/Plan Problem List: (1) Cocaine abuse ICD Codes: F14.10 - Cocaine abuse, uncomplicated SNOMED: 96724651, 134056522 (2) Chest pain ICD Codes: R07.9 - Chest pain, unspecified SNOMED: 61767486, 106124343 Qualifiers: Qualified Codes: R07.9 - Chest pain, unspecified Status: progressing Assessment/Plan chest pain intermettent gi bleeding check h/h endoscopy per gi reviewed chart and labs Subjective ROS Limited/Unobtainable: Yes Constitutional: Reports: no symptoms Allergies: Coded Allergies: No Known Allergies (Unverified , 09/28/16) Objective Last 24 Hour Vital Signs Date Time Temp Pulse Resp B/P Pulse Ox O2 Delivery O2 Flow Rate FiO2 10/07/16 16:00 97.9 107 22 118/73 92 Room Air 10/07/16 13:45 94 10/07/16 11:59 97.0 94 20 123/74 96 Room Air 10/07/16 09:09 117/67 10/07/16 08:24 96.9 93 20 117/67 98 Room Air 10/07/16 08:00 107 10/07/16 07:09 88 18 Room Air 21 10/07/16 04:10 98.7 86 19 103/58 93 Room Air 10/07/16 00:24 98.3 95 20 118/68 97 Room Air 10/07/16 00:22 80 10/06/16 21:00 97/60 10/06/16 20:00 97.6 92 21 97/60 100 Room Air 10/06/16 19:56 102 10/06/16 19:42 82 18 Room Air 21 Intake and Output 10/06/16 10/07/16 19:00 07:00 Intake Total 660 ml Output Total 2600 ml 300 ml Balance -1940 ml -300 ml Intake Oral 660 ml Output Urine Total 300 ml Hemodialysis UF 2600 ml # Voids 3 2 # Bowel Movements 7 Laboratory Tests 10/07/16 07:35: White Blood Count 7.5, Red Blood Count 2.82L, Hemoglobin 8.3L, Hematocrit 26.7L , Mean Corpuscular Volume 95, Mean Corpuscular Hemoglobin 29.5, Mean Corpuscular Hemoglobin Concent 31.2L, Red Cell Distribution Width 24.4H, Platelet Count 288, Mean Platelet Volume 7.0, Neutrophils (%) (Auto) 80.6H, Lymphocytes (%) (Auto) 7.6L, Monocytes (%) (Auto) 9.5, Eosinophils (%) (Auto) 1.3, Basophils (%) (Auto) 1.1, Sodium Level 139, Potassium Level 4.0, Chloride Level 95L, Carbon Dioxide Level 27, Anion Gap 17H, Blood Urea Nitrogen 44H, Creatinine 3.8H, Estimat Glomerular Filtration Rate 19.8, Glucose Level 86, Uric Acid 5.4, Calcium Level 8.6, Phosphorus Level 4.5, Magnesium Level 1.8, Total Bilirubin 1.8H, Direct Bilirubin 1.0H, Aspartate Amino Transf (AST/SGOT) 20, Alanine Aminotransferase (ALT/SGPT) 7, Alkaline Phosphatase 123, C-Reactive Protein, Quantitative 2.8H, Pro-B-Type Natriuretic Peptide 89254J, Total Protein 6.2L, Albumin 3.1L, Globulin 3.1, Albumin/Globulin Ratio 1.0 Height (Feet): 5 Height (Inches): 5.00 Weight (Pounds): 180 EENT: PERRL/EOMI Neck: supple Cardiovascular: normal rate Respiratory/Chest: lungs clear Abdomen: soft Liu Elizondo MD Oct 07, 2016 16:34
--- NOTE | 2016-10-07 16:39 | Cardiac Electrophysiology PN ---
Assessment/Plan Status Narrative Moderate left ventricular enlargement. Global left ventricular hypokinesis. Worse septal apper akinetic s. Left ventricular ejection fraction estimated to be 30-35 %. No evidence of left ventricular hypertrophy. No evidence of pericardial fat or effusion. Severe right atrial enlargement by 2D. Mild right atrial enlargement by 2D. Focal aortic valve sclerosis with adequate cusp excursion Mildly thickened mitral valve leaflets with normal excursion. Mitral annulus and aortic root calcification. Pulmonic valve is well visualized. Normal tricuspid valve structure. IVC dilated at 2.7cm no physiologic collapse with respiration.RA pressure of 20mmHg. Assessment/Plan 1. Chest pain after using cocaine. Was likely due to vasospasm. The patient was ruled out for myocardial infarction. Avoid beta-david in view of the patient's cocaine use. Had recurrence of chest pain before Colonoscopy.ECG and troponin was negative. Awaiting nuclear stress test today. 2. Severe Cardiomyopathy with EF 30-35%.Avoid Betablocker for cocaine use. On Lisinopril 2.5 bid and dialysis. 3. History of hypertension. On Lisinopril 2.5 bid. 4. End-stage renal disease, on hemodialysis. 5. Substance abuse with cocaine. 6. Anemia due to GI bleed. Stool OB positive. Had EGD. Colonoscopy after stress test. 7. Diabetes. ZOHREH RN and Dr. Bal Subjective Subjective Awaiting the last part of his stress test. No chest pain. Had dialysis yesterday. No SOB. Objective Last 24 Hour Vital Signs Date Time Temp Pulse Resp B/P Pulse Ox O2 Delivery O2 Flow Rate FiO2 10/07/16 16:00 97.9 107 22 118/73 92 Room Air 10/07/16 13:45 94 10/07/16 11:59 97.0 94 20 123/74 96 Room Air 10/07/16 09:09 117/67 10/07/16 08:24 96.9 93 20 117/67 98 Room Air 10/07/16 08:00 107 10/07/16 07:09 88 18 Room Air 21 10/07/16 04:10 98.7 86 19 103/58 93 Room Air 10/07/16 00:24 98.3 95 20 118/68 97 Room Air 10/07/16 00:22 80 10/06/16 21:00 97/60 10/06/16 20:00 97.6 92 21 97/60 100 Room Air 10/06/16 19:56 102 10/06/16 19:42 82 18 Room Air 21 Intake and Output 10/06/16 10/07/16 19:00 07:00 Intake Total 660 ml Output Total 2600 ml 300 ml Balance -1940 ml -300 ml Intake Oral 660 ml Output Urine Total 300 ml Hemodialysis UF 2600 ml # Voids 3 2 # Bowel Movements 7 Laboratory Tests Test 10/07/16 07:35 White Blood Count 7.5 K/UL (4.8-10.8) Red Blood Count 2.82 M/UL (4.70-6.10) L Hemoglobin 8.3 G/DL (14.2-18.0) L Hematocrit 26.7 % (42.0-52.0) L Mean Corpuscular Volume 95 FL (80-99) Mean Corpuscular Hemoglobin 29.5 PG (27.0-31.0) Mean Corpuscular Hemoglobin Concent 31.2 G/DL (32.0-36.0) L Red Cell Distribution Width 24.4 % (11.6-14.8) H Platelet Count 288 K/UL (150-450) Mean Platelet Volume 7.0 FL (6.5-10.1) Neutrophils (%) (Auto) 80.6 % (45.0-75.0) H Lymphocytes (%) (Auto) 7.6 % (20.0-45.0) L Monocytes (%) (Auto) 9.5 % (1.0-10.0) Eosinophils (%) (Auto) 1.3 % (0.0-3.0) Basophils (%) (Auto) 1.1 % (0.0-2.0) Sodium Level 139 mEQ/L (135-145) Potassium Level 4.0 mEQ/L (3.4-4.9) Chloride Level 95 mEQ/L (98-107) L Carbon Dioxide Level 27 mEQ/L (20-30) Anion Gap 17 (5-15) H Blood Urea Nitrogen 44 mg/dL (7-23) H Creatinine 3.8 mg/dL (0.7-1.2) H Estimat Glomerular Filtration Rate 19.8 mL/min (>60) Glucose Level 86 mg/dL (74-106) Uric Acid 5.4 mg/dL (3.0-7.5) Calcium Level 8.6 mg/dL (8.6-10.2) Phosphorus Level 4.5 mg/dL (2.5-4.8) Magnesium Level 1.8 mg/dL (1.7-2.5) Total Bilirubin 1.8 mg/dL (0.0-1.2) H Direct Bilirubin 1.0 mg/dL (0.1-0.3) H Aspartate Amino Transf (AST/SGOT) 20 U/L (5-40) Alanine Aminotransferase (ALT/SGPT) 7 U/L (3-41) Alkaline Phosphatase 123 U/L (40-129) C-Reactive Protein, Quantitative 2.8 mg/dL (< 0.5) H Pro-B-Type Natriuretic Peptide 44705 pg/mL (0-125) H Total Protein 6.2 g/dL (6.6-8.7) L Albumin 3.1 g/dL (3.5-5.2) L Globulin 3.1 g/dL Albumin/Globulin Ratio 1.0 (1.0-2.7) Objective HEAD AND NECK: Showed no jugular venous distention or carotid bruits. LUNGS: Clear. CARDIOVASCULAR: Shows regular S1 and S2 with no gallop or murmur. ABDOMEN: Soft and nontender. EXTREMITIES: No pitting edema. Dialysis access in the right chest. DILIA GUERRERO Oct 07, 2016 16:39
--- NOTE | 2016-10-07 17:17 | Infectious Diseases Prog Note ---
Assessment/Plan Problems: (1) Colonization with VRE (vancomycin-resistant enterococcus) Assessment & Plan: keep in contact isolation (2) ESRD (end stage renal disease) on dialysis Assessment & Plan: continue HD as per renal. (3) Cocaine abuse Assessment & Plan: recommend counseling and rehab (4) Chest pain Assessment & Plan: evaluation as per primary (5) Anemia in chronic kidney disease Assessment & Plan: stable, monitor H/H transfuse as needed Subjective Constitutional: Reports: no symptoms HEENT: Reports: no symptoms Respiratory: Reports: no symptoms Breasts: Reports: no symptoms Cardiovascular: Reports: no symptoms Gastrointestinal/Abdominal: Reports: no symptoms Genitourinary: Reports: no symptoms Neurologic: Reports: no symptoms Psychiatric: Reports: no symptoms Skin: Reports: no symptoms Allergies: Coded Allergies: No Known Allergies (Unverified , 09/28/16) Subjective he was doing well today, denied any symptoms. Objective Vital Signs Last 24 Hour Vital Signs Date Time Temp Pulse Resp B/P Pulse Ox O2 Delivery O2 Flow Rate FiO2 10/07/16 16:00 97.9 107 22 118/73 92 Room Air 10/07/16 13:45 94 10/07/16 11:59 97.0 94 20 123/74 96 Room Air 10/07/16 09:09 117/67 10/07/16 08:24 96.9 93 20 117/67 98 Room Air 10/07/16 08:00 107 10/07/16 07:09 88 18 Room Air 21 10/07/16 04:10 98.7 86 19 103/58 93 Room Air 10/07/16 00:24 98.3 95 20 118/68 97 Room Air 10/07/16 00:22 80 10/06/16 21:00 97/60 10/06/16 20:00 97.6 92 21 97/60 100 Room Air 10/06/16 19:56 102 10/06/16 19:42 82 18 Room Air 21 Height (Feet): 5 Height (Inches): 5.00 Weight (Pounds): 180 General Appearance: WD/WN, no acute distress HEENT: normocephalic, atraumatic, anicteric, mucous membranes moist Respiratory/Chest: chest wall non-tender, lungs clear, normal breath sounds, no respiratory distress, no accessory muscle use Cardiovascular: normal peripheral pulses, normal rate, regular rhythm, no gallop/murmur Abdomen: normal bowel sounds, soft, non tender, no organomegaly, non distended , no mass, no scars Extremities: no cyanosis, no clubbing Skin: no rash, no lesions Laboratory Tests Test 10/07/16 07:35 White Blood Count 7.5 K/UL (4.8-10.8) Red Blood Count 2.82 M/UL (4.70-6.10) L Hemoglobin 8.3 G/DL (14.2-18.0) L Hematocrit 26.7 % (42.0-52.0) L Mean Corpuscular Volume 95 FL (80-99) Mean Corpuscular Hemoglobin 29.5 PG (27.0-31.0) Mean Corpuscular Hemoglobin Concent 31.2 G/DL (32.0-36.0) L Red Cell Distribution Width 24.4 % (11.6-14.8) H Platelet Count 288 K/UL (150-450) Mean Platelet Volume 7.0 FL (6.5-10.1) Neutrophils (%) (Auto) 80.6 % (45.0-75.0) H Lymphocytes (%) (Auto) 7.6 % (20.0-45.0) L Monocytes (%) (Auto) 9.5 % (1.0-10.0) Eosinophils (%) (Auto) 1.3 % (0.0-3.0) Basophils (%) (Auto) 1.1 % (0.0-2.0) Sodium Level 139 mEQ/L (135-145) Potassium Level 4.0 mEQ/L (3.4-4.9) Chloride Level 95 mEQ/L (98-107) L Carbon Dioxide Level 27 mEQ/L (20-30) Anion Gap 17 (5-15) H Blood Urea Nitrogen 44 mg/dL (7-23) H Creatinine 3.8 mg/dL (0.7-1.2) H Estimat Glomerular Filtration Rate 19.8 mL/min (>60) Glucose Level 86 mg/dL (74-106) Uric Acid 5.4 mg/dL (3.0-7.5) Calcium Level 8.6 mg/dL (8.6-10.2) Phosphorus Level 4.5 mg/dL (2.5-4.8) Magnesium Level 1.8 mg/dL (1.7-2.5) Total Bilirubin 1.8 mg/dL (0.0-1.2) H Direct Bilirubin 1.0 mg/dL (0.1-0.3) H Aspartate Amino Transf (AST/SGOT) 20 U/L (5-40) Alanine Aminotransferase (ALT/SGPT) 7 U/L (3-41) Alkaline Phosphatase 123 U/L (40-129) C-Reactive Protein, Quantitative 2.8 mg/dL (< 0.5) H Pro-B-Type Natriuretic Peptide 03041 pg/mL (0-125) H Total Protein 6.2 g/dL (6.6-8.7) L Albumin 3.1 g/dL (3.5-5.2) L Globulin 3.1 g/dL Albumin/Globulin Ratio 1.0 (1.0-2.7) Current Medications Medications (Trade) Dose Ordered Sig/Lillian Route PRN Reason Start Time Stop Time Status Last Admin Dose Admin Acetaminophen (Tylenol) 650 mg Q4H PRN ORAL Fever 10/06/16 15:30 11/05/16 15:29 Albuterol/ Ipratropium (DuoNeb 0.5-3(2.5)mg/3ml) 3 ml Q4H PRN HHN Shortness of Breath 10/06/16 15:00 10/11/16 14:59 Dextrose (Dextrose 50%) STAT PRN IV Hypoglycemia 10/06/16 19:30 11/05/16 19:29 Epoetin Joseph (Procrit (for ESRD on dialysis)) 5,000 units TUE-TUE-TUE SUBQ 10/06/16 21:00 11/05/16 20:59 10/06/16 21:53 Heparin Sodium (Porcine) (Heparin Sod 1000 units/ml 10ml) 2,000 unit ONCE IV 10/08/16 06:00 10/08/16 23:59 Insulin Aspart (NovoLOG) BEFORE MEALS AND HS SUBQ 10/06/16 16:30 11/05/16 16:29 Lidocaine (Lidoderm 5% PATCH) 1 patch DAILY TDERMAL 10/07/16 09:00 11/06/16 08:59 10/07/16 09:10 Lisinopril (Zestril) 2.5 mg Q12HR ORAL 10/06/16 21:00 11/05/16 20:59 10/07/16 09:09 Ondansetron HCl (Zofran) 4 mg Q6H PRN IVP Nausea & Vomiting 10/06/16 13:30 11/05/16 13:29 Pantoprazole (Protonix) 40 mg DAILY ORAL 10/07/16 09:00 11/06/16 08:59 10/07/16 09:09 Polyethylene Glycol (Miralax) 17 gm DAILYPRN PRN ORAL Constipation 10/06/16 19:30 11/05/16 19:29 Sodium Chloride (Sodium Chloride 1000ml bag) 1,000 ml @ 500 mls/hr Q2H PRN IVLG sbp<90 during hd 10/08/16 06:00 10/08/16 23:59 Temazepam (Restoril) 15 mg HSPRN PRN ORAL Insomnia 10/06/16 19:30 10/13/16 19:29 Tramadol HCl 50 mg 50 mg Q4H PRN ORAL moderate pain 10/06/16 16:15 10/13/16 16:14 10/06/16 17:06 Vitamin B Complex/ Vit C/Folic Acid (Nephrovite) 1 tab DAILY ORAL 10/07/16 09:00 11/06/16 08:59 10/07/16 09:09 Ivania Bhardwaj M.D. Oct 07, 2016 17:17
[2016-10-07] MEDS: traMADol 50mg tab ORAL PRN (18:20)
[2016-10-07 20:00] VITALS: BP 112/56
[2016-10-08] VITALS: BP 135/86
[2016-10-08 04:00] VITALS: BP 124/72
[2016-10-08] MEDS ORDERED: Heparin Sod 1000 units/ml 10ml IV SCH (06:00)
[2016-10-08] MEDS: NovoLOG Insulin Flexpen SUBQ SCH ×4 (06:30→21:00)
[2016-10-08 07:32] LABS: BASOPHILS % (AUTO) 1.4 % (0.0-2.0); EOSINOPHILS % (AUTO) 1.3 % (0.0-3.0); LYMPHOCYTES % (AUTO) 11.2 % (20.0-45.0); MEAN CORPUSCULAR HEMOGLOBIN 29.2 PG (27.0-31.0); MEAN CORPUSCULAR HGB CONC 30.2 G/DL (32.0-36.0); MEAN CORPUSCULAR VOLUME 97 FL (80-99); MONOCYTES % (AUTO) 6.9 % (1.0-10.0); NEUTROPHILS % (AUTO) 79.3 % (45.0-75.0); PLATELET COUNT 319 K/UL (150-450); RED BLOOD COUNT 2.87 M/UL (4.70-6.10); RED CELL DISTRIBUTION WIDTH 25.5 % (11.6-14.8); WHITE BLOOD COUNT 7.7 K/UL (4.8-10.8)
[2016-10-08 07:43] LABS: INR 1.2 (0.9-1.1); PROTHROMBIN TIME 12.2 SEC (9.30-11.50)
[2016-10-08 07:56] LABS: CALCIUM 9.1 mg/dL (8.6-10.2); CREATININE 4.8 mg/dL (0.7-1.2); PHOSPHORUS 4.3 mg/dL (2.5-4.8); POTASSIUM 4.1 mEQ/L (3.4-4.9)
[2016-10-08 08:00] VITALS: BP 125/70
[2016-10-08] MEDS: Nephrovite tab ORAL SCH (08:32)
[2016-10-08] MEDS: Lisinopril 2.5mg tab ORAL SCH ×2 (08:33→21:00)
--- NOTE | 2016-10-08 08:45 | General Progress Note ---
Assessment/Plan Assessment/Plan (1) Cocaine abuse (2) Chest pain (3) CHF (4) ESRD on Hemodialysis (5) Lumbar sprain s/p fall Pt will be continued on Lidoderm patch and tramadol. Pt was d/w Dr. Rodriguez and he concurred. Subjective Date patient seen: Oct 08, 2016 Time patient seen: 07:00 - am Allergies: Coded Allergies: No Known Allergies (Unverified , 09/28/16) Subjective REVIEW OF SYSTEMS: Denies rash, fever, chills, sweating, dizziness, drowsiness, blurred vision, sore throat, or change in weight. No nausea, vomiting, diarrhea, or blood in the stool or urine. No bowel or bladder incontinence. No dysuria. c/o back pain SUBJECTIVE: His pain has been stable on the medications. At this time he is having Dialysis. Objective Last 24 Hour Vital Signs Date Time Temp Pulse Resp B/P Pulse Ox O2 Delivery O2 Flow Rate FiO2 10/08/16 08:33 117/89 10/08/16 04:00 88 10/08/16 04:00 97.0 95 20 124/72 94 Room Air 10/08/16 00:00 95 10/08/16 00:00 97.5 103 18 135/86 96 Room Air 10/07/16 21:00 112/56 10/07/16 20:00 97.7 94 19 112/56 98 Room Air 10/07/16 19:01 86 10/07/16 18:30 94 18 Room Air 21 10/07/16 16:00 97.9 107 22 118/73 92 Room Air 10/07/16 13:45 94 10/07/16 11:59 97.0 94 20 123/74 96 Room Air 10/07/16 09:09 117/67 Intake and Output 10/07/16 10/08/16 19:00 07:00 Intake Total 120 ml 260 ml Balance 120 ml 260 ml Intake Oral 120 ml 260 ml # Voids 1 # Bowel Movements 3 Laboratory Tests 10/08/16 06:30: White Blood Count 7.7, Red Blood Count 2.87L, Hemoglobin 8.4L, Hematocrit 27.7L , Mean Corpuscular Volume 97, Mean Corpuscular Hemoglobin 29.2, Mean Corpuscular Hemoglobin Concent 30.2L, Red Cell Distribution Width 25.5H, Platelet Count 319, Mean Platelet Volume 7.0, Neutrophils (%) (Auto) 79.3H, Lymphocytes (%) (Auto) 11.2L, Monocytes (%) (Auto) 6.9, Eosinophils (%) (Auto) 1.3, Basophils (%) (Auto) 1.4, Prothrombin Time 12.2H, Prothromb Time International Ratio 1.2H, Activated Partial Thromboplast Time 30, Sodium Level 137, Potassium Level 4.1, Chloride Level 95L, Carbon Dioxide Level 25, Anion Gap 17H, Blood Urea Nitrogen 48H, Creatinine 4.8H, Estimat Glomerular Filtration Rate 15.0, Glucose Level 94, Calcium Level 9.1, Phosphorus Level 4.3 Height (Feet): 5 Height (Inches): 5.00 Weight (Pounds): 180 Objective PHYSICAL EXAMINATION: GENERAL: Alert, awake, and oriented. HEENT: PERRLA. NECK: Range of motion is full in all directions. No tenderness to paracervical muscles. No adenopathy. LUNGS: Decreased breath sounds bilaterally. HEART: S1 and S2, regular. ABDOMEN: Obese. BACK: Range of motion is decreased in flexion and extension with tenderness to paraspinous and trapezius muscles. EXTREMITIES: No cyanosis, no clubbing, edema noted on RUE. NEURO: No changes. ARRON EDWARD Oct 08, 2016 08:45
--- NOTE | 2016-10-08 10:33 | GI Progress Note ---
Assessment/Plan Problems: (1) GIB (gastrointestinal bleeding) ICD Codes: K92.2 - Gastrointestinal hemorrhage, unspecified SNOMED: 46842455 (2) Cocaine abuse ICD Codes: F14.10 - Cocaine abuse, uncomplicated SNOMED: 23962863, 263660325 (3) Anemia in chronic kidney disease ICD Codes: N18.9 - Chronic kidney disease, unspecified; D63.1 - Anemia in chronic kidney disease SNOMED: 149026621, 543635579 (4) Chest pain ICD Codes: R07.9 - Chest pain, unspecified SNOMED: 22347111, 693344715 Qualifiers: Qualified Codes: R07.9 - Chest pain, unspecified Status: unchanged Status Narrative Discussed with Dr. Bal. Assessment/Plan plan for colonoscopy after stress test D/W cardiology cardiac diet monitor H&H, transfuse prn OB stool positive x 3 ppi fu labs Subjective Subjective chest pain Objective Last 24 Hour Vital Signs Date Time Temp Pulse Resp B/P Pulse Ox O2 Delivery O2 Flow Rate FiO2 10/08/16 08:40 Room Air 3.0 21 10/08/16 08:33 117/89 10/08/16 08:00 97.0 98 20 125/70 97 Room Air 10/08/16 04:00 88 10/08/16 04:00 97.0 95 20 124/72 94 Room Air 10/08/16 00:00 95 10/08/16 00:00 97.5 103 18 135/86 96 Room Air 10/07/16 21:00 112/56 10/07/16 20:00 97.7 94 19 112/56 98 Room Air 10/07/16 19:01 86 10/07/16 18:30 94 18 Room Air 21 10/07/16 16:00 97.9 107 22 118/73 92 Room Air 10/07/16 13:45 94 10/07/16 11:59 97.0 94 20 123/74 96 Room Air Intake and Output 10/07/16 10/08/16 19:00 07:00 Intake Total 120 ml 260 ml Balance 120 ml 260 ml Intake Oral 120 ml 260 ml # Voids 1 # Bowel Movements 3 Laboratory Tests Test 10/08/16 06:30 White Blood Count 7.7 K/UL (4.8-10.8) Red Blood Count 2.87 M/UL (4.70-6.10) L Hemoglobin 8.4 G/DL (14.2-18.0) L Hematocrit 27.7 % (42.0-52.0) L Mean Corpuscular Volume 97 FL (80-99) Mean Corpuscular Hemoglobin 29.2 PG (27.0-31.0) Mean Corpuscular Hemoglobin Concent 30.2 G/DL (32.0-36.0) L Red Cell Distribution Width 25.5 % (11.6-14.8) H Platelet Count 319 K/UL (150-450) Mean Platelet Volume 7.0 FL (6.5-10.1) Neutrophils (%) (Auto) 79.3 % (45.0-75.0) H Lymphocytes (%) (Auto) 11.2 % (20.0-45.0) L Monocytes (%) (Auto) 6.9 % (1.0-10.0) Eosinophils (%) (Auto) 1.3 % (0.0-3.0) Basophils (%) (Auto) 1.4 % (0.0-2.0) Prothrombin Time 12.2 SEC (9.30-11.50) H Prothromb Time International Ratio 1.2 (0.9-1.1) H Activated Partial Thromboplast Time 30 SEC (23-33) Sodium Level 137 mEQ/L (135-145) Potassium Level 4.1 mEQ/L (3.4-4.9) Chloride Level 95 mEQ/L (98-107) L Carbon Dioxide Level 25 mEQ/L (20-30) Anion Gap 17 (5-15) H Blood Urea Nitrogen 48 mg/dL (7-23) H Creatinine 4.8 mg/dL (0.7-1.2) H Estimat Glomerular Filtration Rate 15.0 mL/min (>60) Glucose Level 94 mg/dL (74-106) Calcium Level 9.1 mg/dL (8.6-10.2) Phosphorus Level 4.3 mg/dL (2.5-4.8) Height (Feet): 5 Height (Inches): 5.00 Weight (Pounds): 180 General Appearance: no apparent distress, alert Cardiovascular: normal rate Respiratory/Chest: normal breath sounds, no respiratory distress Abdominal Exam: normal bowel sounds, non tender, soft Lucio,Sole Sebastian N.P. Oct 08, 2016 10:33
[2016-10-08 12:00] VITALS: BP 129/67
--- NOTE | 2016-10-08 13:40 | General Progress Note ---
Assessment/Plan Assessment/Plan ASSESSMENT: 1. Anemia secondary to end-stage renal disease. Ferritin is 711. Remains on epogen 2. Acute drop in hgb, consider GI bleed, to have colo/egd after cardiac eval 3. Thrombocytopenia potentially secondary to underlying infection. hep and hiv - , now better 4. Coagulopathy INR is 1.2, improved 5. Diabetes mellitus. 6. End-stage renal disease on hemodialysis. 7. Cocaine use history. RECOMMENDATIONS: 1. Monitor counts. 2. Transfuse if hemoglobin less than 7.5. 3. Continue epogen 4. Followup GI recs re endoscopy 5. Ultrasound of the abdomen reviewed 6. Anemia workup has been reviewed 7. Followup on Nephrology, Pulmonary, and Cardiology recommendations 8. Transfuse if plts <20k 9. DVT prophylaxis with scds 10. GI prophylaxis ppi 11. Pain control. 12. staff. Thank you, Hugh Lopez MD Subjective Constitutional: Reports: no symptoms HEENT: Reports: no symptoms Cardiovascular: Reports: no symptoms Respiratory: Reports: no symptoms Gastrointestinal/Abdominal: Reports: poor appetite Genitourinary: Reports: no symptoms 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: Reports: no symptoms Endocrine: Reports: no symptoms Hematologic/Lymphatic: Reports: anemia Allergies: Coded Allergies: No Known Allergies (Unverified , 09/28/16) Subjective awake, stable, no events Objective Last 24 Hour Vital Signs Date Time Temp Pulse Resp B/P Pulse Ox O2 Delivery O2 Flow Rate FiO2 10/08/16 12:08 Room Air 10/08/16 12:00 97.5 107 20 129/67 95 Room Air 10/08/16 12:00 97 10/08/16 08:40 Room Air 3.0 21 10/08/16 08:33 117/89 10/08/16 08:00 97.0 98 20 125/70 97 Room Air 10/08/16 08:00 97 10/08/16 07:30 97 20 Room Air 21 10/08/16 04:00 88 10/08/16 04:00 97.0 95 20 124/72 94 Room Air 10/08/16 00:00 95 10/08/16 00:00 97.5 103 18 135/86 96 Room Air 10/07/16 21:00 112/56 10/07/16 20:00 97.7 94 19 112/56 98 Room Air 10/07/16 19:01 86 10/07/16 18:30 94 18 Room Air 21 10/07/16 16:00 97.9 107 22 118/73 92 Room Air 10/07/16 13:45 94 Intake and Output 10/07/16 10/08/16 19:00 07:00 Intake Total 120 ml 260 ml Balance 120 ml 260 ml Intake Oral 120 ml 260 ml # Voids 1 # Bowel Movements 3 Laboratory Tests 10/08/16 06:30: White Blood Count 7.7, Red Blood Count 2.87L, Hemoglobin 8.4L, Hematocrit 27.7L , Mean Corpuscular Volume 97, Mean Corpuscular Hemoglobin 29.2, Mean Corpuscular Hemoglobin Concent 30.2L, Red Cell Distribution Width 25.5H, Platelet Count 319, Mean Platelet Volume 7.0, Neutrophils (%) (Auto) 79.3H, Lymphocytes (%) (Auto) 11.2L, Monocytes (%) (Auto) 6.9, Eosinophils (%) (Auto) 1.3, Basophils (%) (Auto) 1.4, Prothrombin Time 12.2H, Prothromb Time International Ratio 1.2H, Activated Partial Thromboplast Time 30, Sodium Level 137, Potassium Level 4.1, Chloride Level 95L, Carbon Dioxide Level 25, Anion Gap 17H, Blood Urea Nitrogen 48H, Creatinine 4.8H, Estimat Glomerular Filtration Rate 15.0, Glucose Level 94, Calcium Level 9.1, Phosphorus Level 4.3 Height (Feet): 5 Height (Inches): 5.00 Weight (Pounds): 180 General Appearance: no apparent distress EENT: normal ENT inspection Neck: supple Cardiovascular: regular rhythm Respiratory/Chest: lungs clear Abdomen: normal bowel sounds Extremities: normal range of motion Edema: 1+ Leg (L), 1+ Leg (R) Edema: mild edema Neurologic: alert Skin: warm/dry Hugh Lopez Oct 08, 2016 13:40
--- NOTE | 2016-10-08 15:06 | Cardiac Electrophysiology PN ---
Assessment/Plan Status Narrative Moderate left ventricular enlargement. Global left ventricular hypokinesis. Worse septal apper akinetic s. Left ventricular ejection fraction estimated to be 30-35 %. No evidence of left ventricular hypertrophy. No evidence of pericardial fat or effusion. Severe right atrial enlargement by 2D. Mild right atrial enlargement by 2D. Focal aortic valve sclerosis with adequate cusp excursion Mildly thickened mitral valve leaflets with normal excursion. Mitral annulus and aortic root calcification. Pulmonic valve is well visualized. Normal tricuspid valve structure. IVC dilated at 2.7cm no physiologic collapse with respiration.RA pressure of 20mmHg. Assessment/Plan 1. Chest pain after using cocaine, likely due to vasospasm. The patient was ruled out for myocardial infarction. Avoid beta-david in view of the patient's cocaine use. Had recurrence of chest pain before Colonoscopy.ECG and troponin was negative. Awaiting nuclear stress test result. 2. Severe Cardiomyopathy with EF 30-35%.Avoid Betablocker for cocaine use. On Lisinopril 2.5 bid and dialysis. 3. History of hypertension. On Lisinopril 2.5 bid. 4. End-stage renal disease, on hemodialysis. 5. Substance abuse with cocaine. 6. Anemia due to GI bleed. Stool OB positive. Had EGD. Colonoscopy after stress test. 7. Diabetes. ZOHREH RN and Dr. Bal Subjective Subjective Had last part of his stress test. No chest pain. Had dialysis today. No SOB.Results pending. Objective Last 24 Hour Vital Signs Date Time Temp Pulse Resp B/P Pulse Ox O2 Delivery O2 Flow Rate FiO2 10/08/16 12:08 Room Air 10/08/16 12:00 97.5 107 20 129/67 95 Room Air 10/08/16 12:00 97 10/08/16 08:40 Room Air 3.0 21 10/08/16 08:33 117/89 10/08/16 08:00 97.0 98 20 125/70 97 Room Air 10/08/16 08:00 97 10/08/16 07:30 97 20 Room Air 21 10/08/16 04:00 88 10/08/16 04:00 97.0 95 20 124/72 94 Room Air 10/08/16 00:00 95 10/08/16 00:00 97.5 103 18 135/86 96 Room Air 10/07/16 21:00 112/56 1229/16 20:00 97.7 94 19 112/56 98 Room Air 10/07/16 19:01 86 10/07/16 18:30 94 18 Room Air 21 10/07/16 16:00 97.9 107 22 118/73 92 Room Air Intake and Output 10/07/16 10/08/16 19:00 07:00 Intake Total 120 ml 260 ml Balance 120 ml 260 ml Intake Oral 120 ml 260 ml # Voids 1 # Bowel Movements 3 Laboratory Tests Test 10/08/16 06:30 White Blood Count 7.7 K/UL (4.8-10.8) Red Blood Count 2.87 M/UL (4.70-6.10) L Hemoglobin 8.4 G/DL (14.2-18.0) L Hematocrit 27.7 % (42.0-52.0) L Mean Corpuscular Volume 97 FL (80-99) Mean Corpuscular Hemoglobin 29.2 PG (27.0-31.0) Mean Corpuscular Hemoglobin Concent 30.2 G/DL (32.0-36.0) L Red Cell Distribution Width 25.5 % (11.6-14.8) H Platelet Count 319 K/UL (150-450) Mean Platelet Volume 7.0 FL (6.5-10.1) Neutrophils (%) (Auto) 79.3 % (45.0-75.0) H Lymphocytes (%) (Auto) 11.2 % (20.0-45.0) L Monocytes (%) (Auto) 6.9 % (1.0-10.0) Eosinophils (%) (Auto) 1.3 % (0.0-3.0) Basophils (%) (Auto) 1.4 % (0.0-2.0) Prothrombin Time 12.2 SEC (9.30-11.50) H Prothromb Time International Ratio 1.2 (0.9-1.1) H Activated Partial Thromboplast Time 30 SEC (23-33) Sodium Level 137 mEQ/L (135-145) Potassium Level 4.1 mEQ/L (3.4-4.9) Chloride Level 95 mEQ/L (98-107) L Carbon Dioxide Level 25 mEQ/L (20-30) Anion Gap 17 (5-15) H Blood Urea Nitrogen 48 mg/dL (7-23) H Creatinine 4.8 mg/dL (0.7-1.2) H Estimat Glomerular Filtration Rate 15.0 mL/min (>60) Glucose Level 94 mg/dL (74-106) Calcium Level 9.1 mg/dL (8.6-10.2) Phosphorus Level 4.3 mg/dL (2.5-4.8) Objective HEAD AND NECK: Showed no jugular venous distention or carotid bruits. LUNGS: Clear. CARDIOVASCULAR: Shows regular S1 and S2 with no gallop or murmur. ABDOMEN: Soft and nontender. EXTREMITIES: No pitting edema. Dialysis access in the right chest. DILIA GUERRERO Oct 08, 2016 15:06
--- NOTE | 2016-10-08 15:13 | Pulmonology Progress Note ---
Assessment/Plan Problems: (1) Chest pain Assessment & Plan: cardiac vs noncardiac (2) Acute respiratory failure Assessment & Plan: improved (3) Anemia in chronic kidney disease (4) ESRD (end stage renal disease) on dialysis (5) Fluid overload (6) Cocaine abuse (7) Back pain Assessment/Plan cardiac evaluation appreciated HD as needed check electrolytes pain control Ekg now stress test is negative Subjective ROS Limited/Unobtainable: No Constitutional: Reports: no symptoms Allergies: Coded Allergies: No Known Allergies (Unverified , 09/28/16) Objective Last 24 Hour Vital Signs Date Time Temp Pulse Resp B/P Pulse Ox O2 Delivery O2 Flow Rate FiO2 10/08/16 12:08 Room Air 10/08/16 12:00 97.5 107 20 129/67 95 Room Air 10/08/16 12:00 97 10/08/16 08:40 Room Air 3.0 21 10/08/16 08:33 117/89 10/08/16 08:00 97.0 98 20 125/70 97 Room Air 10/08/16 08:00 97 10/08/16 07:30 97 20 Room Air 21 10/08/16 04:00 88 10/08/16 04:00 97.0 95 20 124/72 94 Room Air 10/08/16 00:00 95 10/08/16 00:00 97.5 103 18 135/86 96 Room Air 10/07/16 21:00 112/56 10/07/16 20:00 97.7 94 19 112/56 98 Room Air 10/07/16 19:01 86 10/07/16 18:30 94 18 Room Air 21 10/07/16 16:00 97.9 107 22 118/73 92 Room Air Intake and Output 10/07/16 10/08/16 19:00 07:00 Intake Total 120 ml 260 ml Balance 120 ml 260 ml Intake Oral 120 ml 260 ml # Voids 1 # Bowel Movements 3 General Appearance: WD/WN HEENT: normocephalic Respiratory/Chest: chest wall non-tender Cardiovascular: normal peripheral pulses, normal rate Abdomen: normal bowel sounds, no organomegaly Extremities: no cyanosis Skin: no rash Laboratory Tests 10/08/16 06:30: White Blood Count 7.7, Red Blood Count 2.87L, Hemoglobin 8.4L, Hematocrit 27.7L , Mean Corpuscular Volume 97, Mean Corpuscular Hemoglobin 29.2, Mean Corpuscular Hemoglobin Concent 30.2L, Red Cell Distribution Width 25.5H, Platelet Count 319, Mean Platelet Volume 7.0, Neutrophils (%) (Auto) 79.3H, Lymphocytes (%) (Auto) 11.2L, Monocytes (%) (Auto) 6.9, Eosinophils (%) (Auto) 1.3, Basophils (%) (Auto) 1.4, Prothrombin Time 12.2H, Prothromb Time International Ratio 1.2H, Activated Partial Thromboplast Time 30, Sodium Level 137, Potassium Level 4.1, Chloride Level 95L, Carbon Dioxide Level 25, Anion Gap 17H, Blood Urea Nitrogen 48H, Creatinine 4.8H, Estimat Glomerular Filtration Rate 15.0, Glucose Level 94, Calcium Level 9.1, Phosphorus Level 4.3 Current Medications Medications (Trade) Dose Ordered Sig/Lillian Route PRN Reason Start Time Stop Time Status Last Admin Dose Admin Acetaminophen (Tylenol) 650 mg Q4H PRN ORAL Fever 10/06/16 15:30 11/05/16 15:29 Albuterol/ Ipratropium (DuoNeb 0.5-3(2.5)mg/3ml) 3 ml Q4H PRN HHN Shortness of Breath 10/06/16 15:00 10/11/16 14:59 Dextrose (Dextrose 50%) STAT PRN IV Hypoglycemia 10/06/16 19:30 11/05/16 19:29 Epoetin Joseph (Procrit (for ESRD on dialysis)) 5,000 units MON-TUE-TUE SUBQ 10/06/16 21:00 11/05/16 20:59 10/06/16 21:53 Heparin Sodium (Porcine) (Heparin Sod 1000 units/ml 10ml) 2,000 unit ONCE IV 10/08/16 06:00 10/08/16 23:59 Insulin Aspart (NovoLOG) BEFORE MEALS AND HS SUBQ 10/06/16 16:30 11/05/16 16:29 Lidocaine (Lidoderm 5% PATCH) 1 patch DAILY TDERMAL 10/07/16 09:00 11/06/16 08:59 10/08/16 08:33 Lisinopril (Zestril) 2.5 mg Q12HR ORAL 10/06/16 21:00 11/05/16 20:59 10/07/16 09:09 Ondansetron HCl (Zofran) 4 mg Q6H PRN IVP Nausea & Vomiting 10/06/16 13:30 11/05/16 13:29 Pantoprazole (Protonix) 40 mg ACBREAKFAST ORAL 10/09/16 06:30 11/06/16 08:59 Polyethylene Glycol (Miralax) 17 gm DAILYPRN PRN ORAL Constipation 10/06/16 19:30 11/05/16 19:29 Sodium Chloride (Sodium Chloride 1000ml bag) 1,000 ml @ 500 mls/hr Q2H PRN IVLG sbp<90 during hd 10/08/16 06:00 10/08/16 23:59 Temazepam (Restoril) 15 mg HSPRN PRN ORAL Insomnia 10/06/16 19:30 10/13/16 19:29 Tramadol HCl 50 mg 50 mg Q4H PRN ORAL moderate pain 10/06/16 16:15 10/13/16 16:14 10/07/16 18:20 Vitamin B Complex/ Vit C/Folic Acid (Nephrovite) 1 tab DAILY ORAL 10/07/16 09:00 11/06/16 08:59 10/08/16 08:32 CARLOS ALBERTO HERMAN Oct 08, 2016 15:12
[2016-10-08 16:00] VITALS: BP 113/63
[2016-10-08] MEDS: traMADol 50mg tab ORAL PRN ×2 (16:06→21:48)
--- NOTE | 2016-10-08 16:20 | Nephrology Progress Note ---
Assessment/Plan Problem List: (1) ESRD (end stage renal disease) on dialysis (2) Chest pain (3) Cocaine abuse (4) Anemia in chronic kidney disease Plan dialyzed today cont Epogen follow labs Subjective Subjective In NAD Objective Objective Last 24 Hour Vital Signs Date Time Temp Pulse Resp B/P Pulse Ox O2 Delivery O2 Flow Rate FiO2 10/08/16 12:08 Room Air 10/08/16 12:00 97.5 107 20 129/67 95 Room Air 10/08/16 12:00 97 10/08/16 08:40 Room Air 3.0 21 10/08/16 08:33 117/89 10/08/16 08:00 97.0 98 20 125/70 97 Room Air 10/08/16 08:00 97 10/08/16 07:30 97 20 Room Air 21 10/08/16 04:00 88 10/08/16 04:00 97.0 95 20 124/72 94 Room Air 10/08/16 00:00 95 10/08/16 00:00 97.5 103 18 135/86 96 Room Air 10/07/16 21:00 112/56 10/07/16 20:00 97.7 94 19 112/56 98 Room Air 10/07/16 19:01 86 10/07/16 18:30 94 18 Room Air 21 Intake and Output 10/07/16 10/08/16 19:00 07:00 Intake Total 120 ml 260 ml Balance 120 ml 260 ml Intake Oral 120 ml 260 ml # Voids 1 # Bowel Movements 3 Laboratory Tests 10/08/16 06:30: White Blood Count 7.7, Red Blood Count 2.87L, Hemoglobin 8.4L, Hematocrit 27.7L , Mean Corpuscular Volume 97, Mean Corpuscular Hemoglobin 29.2, Mean Corpuscular Hemoglobin Concent 30.2L, Red Cell Distribution Width 25.5H, Platelet Count 319, Mean Platelet Volume 7.0, Neutrophils (%) (Auto) 79.3H, Lymphocytes (%) (Auto) 11.2L, Monocytes (%) (Auto) 6.9, Eosinophils (%) (Auto) 1.3, Basophils (%) (Auto) 1.4, Prothrombin Time 12.2H, Prothromb Time International Ratio 1.2H, Activated Partial Thromboplast Time 30, Sodium Level 137, Potassium Level 4.1, Chloride Level 95L, Carbon Dioxide Level 25, Anion Gap 17H, Blood Urea Nitrogen 48H, Creatinine 4.8H, Estimat Glomerular Filtration Rate 15.0, Glucose Level 94, Calcium Level 9.1, Phosphorus Level 4.3 Height (Feet): 5 Height (Inches): 5.00 Weight (Pounds): 180 Cardiovascular: normal rate Respiratory/Chest: lungs clear Extremities: trace edema HAI BURGESS Oct 08, 2016 16:20
--- NOTE | 2016-10-08 16:41 | General Progress Note ---
Assessment/Plan Problem List: (1) Cocaine abuse ICD Codes: F14.10 - Cocaine abuse, uncomplicated SNOMED: 91024571, [id number] (2) Chest pain ICD Codes: R07.9 - Chest pain, unspecified SNOMED: 59636035, [id number] Qualifiers: Qualified Codes: R07.9 - Chest pain, unspecified Status: progressing Assessment/Plan bleeding endoscopy per gi check h/h r/o acs reviewed chart and labs Subjective ROS Limited/Unobtainable: Yes Constitutional: Reports: no symptoms Allergies: Coded Allergies: No Known Allergies (Unverified , 09/28/16) Objective Last 24 Hour Vital Signs Date Time Temp Pulse Resp B/P Pulse Ox O2 Delivery O2 Flow Rate FiO2 10/08/16 12:08 Room Air 10/08/16 12:00 97.5 107 20 129/67 95 Room Air 10/08/16 12:00 97 10/08/16 08:40 Room Air 3.0 21 10/08/16 08:33 117/89 10/08/16 08:00 97.0 98 20 125/70 97 Room Air 10/08/16 08:00 97 10/08/16 07:30 97 20 Room Air 21 10/08/16 04:00 88 10/08/16 04:00 97.0 95 20 124/72 94 Room Air 10/08/16 00:00 95 10/08/16 00:00 97.5 103 18 135/86 96 Room Air 10/07/16 21:00 112/56 10/07/16 20:00 97.7 94 19 112/56 98 Room Air 10/07/16 19:01 86 10/07/16 18:30 94 18 Room Air 21 Intake and Output 10/07/16 10/08/16 19:00 07:00 Intake Total 120 ml 260 ml Balance 120 ml 260 ml Intake Oral 120 ml 260 ml # Voids 1 # Bowel Movements 3 Laboratory Tests 10/08/16 06:30: White Blood Count 7.7, Red Blood Count 2.87L, Hemoglobin 8.4L, Hematocrit 27.7L , Mean Corpuscular Volume 97, Mean Corpuscular Hemoglobin 29.2, Mean Corpuscular Hemoglobin Concent 30.2L, Red Cell Distribution Width 25.5H, Platelet Count 319, Mean Platelet Volume 7.0, Neutrophils (%) (Auto) 79.3H, Lymphocytes (%) (Auto) 11.2L, Monocytes (%) (Auto) 6.9, Eosinophils (%) (Auto) 1.3, Basophils (%) (Auto) 1.4, Prothrombin Time 12.2H, Prothromb Time International Ratio 1.2H, Activated Partial Thromboplast Time 30, Sodium Level 137, Potassium Level 4.1, Chloride Level 95L, Carbon Dioxide Level 25, Anion Gap 17H, Blood Urea Nitrogen 48H, Creatinine 4.8H, Estimat Glomerular Filtration Rate 15.0, Glucose Level 94, Calcium Level 9.1, Phosphorus Level 4.3 Height (Feet): 5 Height (Inches): 5.00 Weight (Pounds): 180 EENT: PERRL/EOMI Cardiovascular: normal rate Abdomen: soft Liu Elizondo MD Oct 08, 2016 16:41
--- NOTE | 2016-10-08 17:43 | Infectious Diseases Prog Note ---
Assessment/Plan Problems: (1) Colonization with VRE (vancomycin-resistant enterococcus) Assessment & Plan: keep in contact isolation (2) ESRD (end stage renal disease) on dialysis Assessment & Plan: continue HD as per renal. (3) Cocaine abuse Assessment & Plan: recommend counseling and rehab (4) Chest pain Assessment & Plan: evaluation as per primary (5) Anemia in chronic kidney disease Assessment & Plan: stable, monitor H/H transfuse as needed Subjective Constitutional: Reports: no symptoms HEENT: Reports: no symptoms Respiratory: Reports: no symptoms Breasts: Reports: no symptoms Cardiovascular: Reports: no symptoms Gastrointestinal/Abdominal: Reports: no symptoms Genitourinary: Reports: no symptoms Neurologic: Reports: no symptoms Psychiatric: Reports: no symptoms Skin: Reports: no symptoms Endocrine: Reports: no symptoms Allergies: Coded Allergies: No Known Allergies (Unverified , 09/28/16) Subjective he was doing well today, denied any symptoms. Objective Vital Signs Last 24 Hour Vital Signs Date Time Temp Pulse Resp B/P Pulse Ox O2 Delivery O2 Flow Rate FiO2 10/08/16 16:00 96.4 94 13 113/63 95 10/08/16 12:08 Room Air 10/08/16 12:00 97.5 107 20 129/67 95 Room Air 10/08/16 12:00 97 10/08/16 08:40 Room Air 3.0 21 10/08/16 08:33 117/89 10/08/16 08:00 97.0 98 20 125/70 97 Room Air 10/08/16 08:00 97 10/08/16 07:30 97 20 Room Air 21 10/08/16 04:00 88 10/08/16 04:00 97.0 95 20 124/72 94 Room Air 10/08/16 00:00 95 10/08/16 00:00 97.5 103 18 135/86 96 Room Air 10/07/16 21:00 112/56 10/07/16 20:00 97.7 94 19 112/56 98 Room Air 10/07/16 19:01 86 10/07/16 18:30 94 18 Room Air 21 Height (Feet): 5 Height (Inches): 5.00 Weight (Pounds): 180 General Appearance: WD/WN, no acute distress HEENT: normocephalic, atraumatic, anicteric Respiratory/Chest: chest wall non-tender, lungs clear, normal breath sounds, no respiratory distress, no accessory muscle use Cardiovascular: normal peripheral pulses, normal rate, regular rhythm, no gallop/murmur Abdomen: normal bowel sounds, soft, non tender, no organomegaly, non distended , no mass Extremities: no cyanosis, no clubbing Skin: no rash, no lesions, no ulcers Laboratory Tests Test 10/08/16 06:30 White Blood Count 7.7 K/UL (4.8-10.8) Red Blood Count 2.87 M/UL (4.70-6.10) L Hemoglobin 8.4 G/DL (14.2-18.0) L Hematocrit 27.7 % (42.0-52.0) L Mean Corpuscular Volume 97 FL (80-99) Mean Corpuscular Hemoglobin 29.2 PG (27.0-31.0) Mean Corpuscular Hemoglobin Concent 30.2 G/DL (32.0-36.0) L Red Cell Distribution Width 25.5 % (11.6-14.8) H Platelet Count 319 K/UL (150-450) Mean Platelet Volume 7.0 FL (6.5-10.1) Neutrophils (%) (Auto) 79.3 % (45.0-75.0) H Lymphocytes (%) (Auto) 11.2 % (20.0-45.0) L Monocytes (%) (Auto) 6.9 % (1.0-10.0) Eosinophils (%) (Auto) 1.3 % (0.0-3.0) Basophils (%) (Auto) 1.4 % (0.0-2.0) Prothrombin Time 12.2 SEC (9.30-11.50) H Prothromb Time International Ratio 1.2 (0.9-1.1) H Activated Partial Thromboplast Time 30 SEC (23-33) Sodium Level 137 mEQ/L (135-145) Potassium Level 4.1 mEQ/L (3.4-4.9) Chloride Level 95 mEQ/L (98-107) L Carbon Dioxide Level 25 mEQ/L (20-30) Anion Gap 17 (5-15) H Blood Urea Nitrogen 48 mg/dL (7-23) H Creatinine 4.8 mg/dL (0.7-1.2) H Estimat Glomerular Filtration Rate 15.0 mL/min (>60) Glucose Level 94 mg/dL (74-106) Calcium Level 9.1 mg/dL (8.6-10.2) Phosphorus Level 4.3 mg/dL (2.5-4.8) Current Medications Medications (Trade) Dose Ordered Sig/Lillian Route PRN Reason Start Time Stop Time Status Last Admin Dose Admin Acetaminophen (Tylenol) 650 mg Q4H PRN ORAL Fever 10/06/16 15:30 11/05/16 15:29 Albuterol/ Ipratropium (DuoNeb 0.5-3(2.5)mg/3ml) 3 ml Q4H PRN HHN Shortness of Breath 10/06/16 15:00 10/11/16 14:59 Dextrose (Dextrose 50%) STAT PRN IV Hypoglycemia 10/06/16 19:30 11/05/16 19:29 Epoetin Joseph (Procrit (for ESRD on dialysis)) 5,000 units TUE-TUE-TUE SUBQ 10/06/16 21:00 11/05/16 20:59 10/06/16 21:53 Heparin Sodium (Porcine) (Heparin Sod 1000 units/ml 10ml) 2,000 unit ONCE IV 10/08/16 06:00 10/08/16 23:59 Insulin Aspart (NovoLOG) BEFORE MEALS AND HS SUBQ 10/06/16 16:30 11/05/16 16:29 Lidocaine (Lidoderm 5% PATCH) 1 patch DAILY TDERMAL 10/07/16 09:00 11/06/16 08:59 10/08/16 08:33 Lisinopril (Zestril) 2.5 mg Q12HR ORAL 10/06/16 21:00 11/05/16 20:59 10/07/16 09:09 Ondansetron HCl (Zofran) 4 mg Q6H PRN IVP Nausea & Vomiting 10/06/16 13:30 11/05/16 13:29 Pantoprazole (Protonix) 40 mg ACBREAKFAST ORAL 10/09/16 06:30 11/06/16 08:59 Polyethylene Glycol (Miralax) 17 gm DAILYPRN PRN ORAL Constipation 10/06/16 19:30 11/05/16 19:29 Sodium Chloride (Sodium Chloride 1000ml bag) 1,000 ml @ 500 mls/hr Q2H PRN IVLG sbp<90 during hd 10/08/16 06:00 10/08/16 23:59 Temazepam (Restoril) 15 mg HSPRN PRN ORAL Insomnia 10/06/16 19:30 10/13/16 19:29 Tramadol HCl 50 mg 50 mg Q4H PRN ORAL moderate pain 10/06/16 16:15 10/13/16 16:14 10/08/16 16:06 Vitamin B Complex/ Vit C/Folic Acid (Nephrovite) 1 tab DAILY ORAL 10/07/16 09:00 11/06/16 08:59 10/08/16 08:32 Ivania Bhardwaj M.D. Oct 08, 2016 17:43
[2016-10-08 20:06] VITALS: BP 112/65
[2016-10-08] MEDS: Epogen (for ESRD on dialysis) SUBQ SCH (21:41)
[2016-10-09 00:22] VITALS: BP 108/65
[2016-10-09 04:09] VITALS: BP 119/65
[2016-10-09] MEDS: NovoLOG Insulin Flexpen SUBQ SCH ×4 (06:15→20:33)
[2016-10-09] MEDS: traMADol 50mg tab ORAL PRN (06:15)
[2016-10-09 07:04] LABS: BASOPHILS % (AUTO) 1.1 % (0.0-2.0); EOSINOPHILS % (AUTO) 1.4 % (0.0-3.0); LYMPHOCYTES % (AUTO) 12.9 % (20.0-45.0); MEAN CORPUSCULAR HEMOGLOBIN 30.1 PG (27.0-31.0); MEAN CORPUSCULAR HGB CONC 30.7 G/DL (32.0-36.0); MEAN CORPUSCULAR VOLUME 98 FL (80-99); MEAN PLATELET VOLUME 6.7 FL (6.5-10.1); MONOCYTES % (AUTO) 10.2 % (1.0-10.0); NEUTROPHILS % (AUTO) 74.4 % (45.0-75.0); PLATELET COUNT 292 K/UL (150-450); RED BLOOD COUNT 2.76 M/UL (4.70-6.10); RED CELL DISTRIBUTION WIDTH 25.2 % (11.6-14.8); WHITE BLOOD COUNT 6.1 K/UL (4.8-10.8)
[2016-10-09 07:33] LABS: CALCIUM 8.9 mg/dL (8.6-10.2); CREATININE 4.2 mg/dL (0.7-1.2); GLOMERULAR FILTRATION RATE 17.6 mL/min (>60); POTASSIUM 3.9 mEQ/L (3.4-4.9)
[2016-10-09 08:07] VITALS: BP 122/79
[2016-10-09] MEDS: Lisinopril 2.5mg tab ORAL SCH ×2 (08:45→20:27)
[2016-10-09] MEDS: Nephrovite tab ORAL SCH (08:45)
[2016-10-09 11:17] VITALS: BP 133/78
--- NOTE | 2016-10-09 12:15 | General Progress Note ---
Assessment/Plan Assessment/Plan ASSESSMENT: 1. Anemia secondary to end-stage renal disease. Ferritin is 711. Is on epogen 2. Acute drop in hgb, consider GI bleed, to have colo/egd after cardiac eval, currently stable 3. Thrombocytopenia potentially secondary to underlying infection. hep and hiv - , now better 4. Coagulopathy INR is 1.2, improved 5. Diabetes mellitus. 6. End-stage renal disease on hemodialysis. 7. Cocaine use history. RECOMMENDATIONS: 1. Monitor counts. 2. Transfuse if hemoglobin less than 7.5. 3. Continue epogen 4. Followup GI recs re endoscopy 5. Ultrasound of the abdomen reviewed 6. Anemia workup has been reviewed 7. Followup on Nephrology, Pulmonary, and Cardiology recommendations 8. Transfuse if plts <20k 9. DVT prophylaxis with scds 10. GI prophylaxis ppi 11. Pain control. 12. staff. Thank you, Hugh Lopez MD Subjective Constitutional: Reports: no symptoms HEENT: Reports: no symptoms Cardiovascular: Reports: no symptoms Respiratory: Reports: no symptoms Gastrointestinal/Abdominal: Reports: poor appetite Genitourinary: Reports: no symptoms 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: Reports: no symptoms Endocrine: Reports: no symptoms Hematologic/Lymphatic: Reports: anemia Allergies: Coded Allergies: No Known Allergies (Unverified , 09/28/16) Subjective awake, stable, no events, no complaints Objective Last 24 Hour Vital Signs Date Time Temp Pulse Resp B/P Pulse Ox O2 Delivery O2 Flow Rate FiO2 10/09/16 11:17 97.6 101 20 133/78 100 Room Air 10/09/16 08:45 122/79 10/09/16 08:11 105 20 Room Air 10/09/16 08:07 97.2 99 20 122/79 100 Room Air 10/09/16 08:00 104 10/09/16 04:09 98.3 83 20 119/65 97 Room Air 10/09/16 04:00 88 10/09/16 00:22 97.5 92 19 108/65 95 Room Air 10/09/16 00:00 105 10/08/16 21:00 119/69 10/08/16 20:08 95 20 Room Air 10/08/16 20:06 97.5 95 15 112/65 93 Room Air 10/08/16 20:00 94 12/30/16 16:00 96.4 94 13 113/63 95 10/08/16 16:00 93 Intake and Output 10/08/16 10/09/16 19:00 07:00 Intake Total 240 ml 240 ml Output Total 2600 ml 300 ml Balance -2360 ml -60 ml Intake Oral 240 ml 240 ml Output Urine Total 300 ml Hemodialysis UF 2600 ml # Voids 3 4 Laboratory Tests 10/09/16 06:25: White Blood Count 6.1, Red Blood Count 2.76L, Hemoglobin 8.3L, Hematocrit 27.1L , Mean Corpuscular Volume 98, Mean Corpuscular Hemoglobin 30.1, Mean Corpuscular Hemoglobin Concent 30.7L, Red Cell Distribution Width 25.2H, Platelet Count 292, Mean Platelet Volume 6.7, Neutrophils (%) (Auto) 74.4, Lymphocytes (%) (Auto) 12.9L, Monocytes (%) (Auto) 10.2H, Eosinophils (%) (Auto ) 1.4, Basophils (%) (Auto) 1.1, Sodium Level 139, Potassium Level 3.9, Chloride Level 94L, Carbon Dioxide Level 30, Anion Gap 15, Blood Urea Nitrogen 34H, Creatinine 4.2H, Estimat Glomerular Filtration Rate 17.6, Glucose Level 87 , Calcium Level 8.9 Height (Feet): 5 Height (Inches): 5.00 Weight (Pounds): 180 General Appearance: no apparent distress EENT: TMs normal Neck: supple Cardiovascular: regular rhythm Respiratory/Chest: no accessory muscle use Abdomen: no organomegaly Extremities: non-tender Edema: 1+ Leg (L), 1+ Leg (R) Edema: mild edema Neurologic: alert Skin: warm/dry Hugh Lopez Oct 09, 2016 12:15
--- NOTE | 2016-10-09 12:48 | Pulmonology Progress Note ---
Assessment/Plan Problems: (1) Chest pain Assessment & Plan: cardiac vs noncardiac (2) Acute respiratory failure Assessment & Plan: improved (3) Anemia in chronic kidney disease (4) ESRD (end stage renal disease) on dialysis (5) Fluid overload (6) Cocaine abuse (7) Back pain Assessment/Plan cardiac evaluation appreciated HD as needed check electrolytes pain control Ekg now med/surg if ok with Cardio dc planning Subjective ROS Limited/Unobtainable: No Constitutional: Reports: no symptoms HEENT: Repors: no symptoms Respiratory: Reports: no symptoms Cardiovascular: Reports: no symptoms Allergies: Coded Allergies: No Known Allergies (Unverified , 09/28/16) Objective Last 24 Hour Vital Signs Date Time Temp Pulse Resp B/P Pulse Ox O2 Delivery O2 Flow Rate FiO2 10/09/16 11:17 97.6 101 20 133/78 100 Room Air 10/09/16 08:45 122/79 10/09/16 08:11 105 20 Room Air 10/09/16 08:07 97.2 99 20 122/79 100 Room Air 10/09/16 08:00 104 10/09/16 04:09 98.3 83 20 119/65 97 Room Air 10/09/16 04:00 88 10/09/16 00:22 97.5 92 19 108/65 95 Room Air 10/09/16 00:00 105 10/08/16 21:00 119/69 10/08/16 20:08 95 20 Room Air 10/08/16 20:06 97.5 95 15 112/65 93 Room Air 10/08/16 20:00 94 10/08/16 16:00 96.4 94 13 113/63 95 10/08/16 16:00 93 Intake and Output 10/08/16 10/09/16 19:00 07:00 Intake Total 240 ml 240 ml Output Total 2600 ml 300 ml Balance -2360 ml -60 ml Intake Oral 240 ml 240 ml Output Urine Total 300 ml Hemodialysis UF 2600 ml # Voids 3 4 General Appearance: WD/WN Respiratory/Chest: chest wall non-tender, lungs clear Cardiovascular: normal peripheral pulses, regular rhythm Abdomen: normal bowel sounds, soft, non tender Extremities: no cyanosis Skin: no rash Laboratory Tests 10/09/16 06:25: White Blood Count 6.1, Red Blood Count 2.76L, Hemoglobin 8.3L, Hematocrit 27.1L , Mean Corpuscular Volume 98, Mean Corpuscular Hemoglobin 30.1, Mean Corpuscular Hemoglobin Concent 30.7L, Red Cell Distribution Width 25.2H, Platelet Count 292, Mean Platelet Volume 6.7, Neutrophils (%) (Auto) 74.4, Lymphocytes (%) (Auto) 12.9L, Monocytes (%) (Auto) 10.2H, Eosinophils (%) (Auto ) 1.4, Basophils (%) (Auto) 1.1, Sodium Level 139, Potassium Level 3.9, Chloride Level 94L, Carbon Dioxide Level 30, Anion Gap 15, Blood Urea Nitrogen 34H, Creatinine 4.2H, Estimat Glomerular Filtration Rate 17.6, Glucose Level 87 , Calcium Level 8.9 Current Medications Medications (Trade) Dose Ordered Sig/Lillian Route PRN Reason Start Time Stop Time Status Last Admin Dose Admin Acetaminophen (Tylenol) 650 mg Q4H PRN ORAL Fever 10/06/16 15:30 11/05/16 15:29 Albuterol/ Ipratropium (DuoNeb 0.5-3(2.5)mg/3ml) 3 ml Q4H PRN HHN Shortness of Breath 10/06/16 15:00 10/11/16 14:59 Dextrose (Dextrose 50%) STAT PRN IV Hypoglycemia 10/06/16 19:30 11/05/16 19:29 Epoetin Joseph (Procrit (for ESRD on dialysis)) 5,000 units TUE-WED-TUE SUBQ 10/06/16 21:00 11/05/16 20:59 10/08/16 21:41 Insulin Aspart (NovoLOG) BEFORE MEALS AND HS SUBQ 10/06/16 16:30 11/05/16 16:29 Lidocaine (Lidoderm 5% PATCH) 1 patch DAILY TDERMAL 10/07/16 09:00 11/06/16 08:59 10/09/16 08:45 Lisinopril (Zestril) 2.5 mg Q12HR ORAL 10/06/16 21:00 11/05/16 20:59 10/09/16 08:45 Ondansetron HCl (Zofran) 4 mg Q6H PRN IVP Nausea & Vomiting 10/06/16 13:30 11/05/16 13:29 Pantoprazole (Protonix) 40 mg ACBREAKFAST ORAL 10/09/16 06:30 11/06/16 08:59 10/09/16 06:15 Polyethylene Glycol (Miralax) 17 gm DAILYPRN PRN ORAL Constipation 10/06/16 19:30 11/05/16 19:29 Temazepam (Restoril) 15 mg HSPRN PRN ORAL Insomnia 10/06/16 19:30 10/13/16 19:29 Tramadol HCl (Ultram) 50 mg Q4H PRN ORAL moderate pain 10/06/16 16:15 10/13/16 16:14 10/09/16 06:15 Vitamin B Complex/ Vit C/Folic Acid (Nephrovite) 1 tab DAILY ORAL 10/07/16 09:00 11/06/16 08:59 10/09/16 08:45 CARLOS ALBERTO HERMAN Oct 09, 2016 12:48
--- NOTE | 2016-10-09 14:31 | Cardiac Electrophysiology PN ---
Assessment/Plan Status Narrative Moderate left ventricular enlargement. Global left ventricular hypokinesis. Worse septal apper akinetic s. Left ventricular ejection fraction estimated to be 30-35 %. No evidence of left ventricular hypertrophy. No evidence of pericardial fat or effusion. Severe right atrial enlargement by 2D. Mild right atrial enlargement by 2D. Focal aortic valve sclerosis with adequate cusp excursion Mildly thickened mitral valve leaflets with normal excursion. Mitral annulus and aortic root calcification. Pulmonic valve is well visualized. Normal tricuspid valve structure. IVC dilated at 2.7cm no physiologic collapse with respiration.RA pressure of 20mmHg. Assessment/Plan 1. Chest pain after using cocaine, likely due to vasospasm. Ruled out for myocardial infarction. Avoid beta-david in view of cocaine use. Had recurrence of chest pain before Colonoscopy.ECG and troponin was negative. Nuclear stress test showed no significant ischemia. 2. Severe Cardiomyopathy with EF 30-35%.Avoid Betablocker for cocaine use. On Lisinopril 2.5 bid and dialysis. 3. History of hypertension. On Lisinopril 2.5 bid. 4. End-stage renal disease, on hemodialysis. 5. Substance abuse with cocaine. 6. Anemia due to GI bleed. Stool OB positive. Had EGD. OK to proceed with Colonoscopy. 7. Diabetes. DW RN Subjective Subjective No chest pain. Had dialysis yesterday. No SOB. Objective Last 24 Hour Vital Signs Date Time Temp Pulse Resp B/P Pulse Ox O2 Delivery O2 Flow Rate FiO2 10/09/16 12:00 100 10/09/16 11:17 97.6 101 20 133/78 100 Room Air 10/09/16 08:45 122/79 10/09/16 08:11 105 20 Room Air 10/09/16 08:07 97.2 99 20 122/79 100 Room Air 10/09/16 08:00 104 10/09/16 04:09 98.3 83 20 119/65 97 Room Air 10/09/16 04:00 88 10/09/16 00:22 97.5 92 19 108/65 95 Room Air 10/09/16 00:00 105 10/08/16 21:00 119/69 10/08/16 20:08 95 20 Room Air 10/08/16 20:06 97.5 95 15 112/65 93 Room Air 10/08/16 20:00 94 10/08/16 16:00 96.4 94 13 113/63 95 10/08/16 16:00 93 Intake and Output 10/08/16 10/09/16 19:00 07:00 Intake Total 240 ml 240 ml Output Total 2600 ml 300 ml Balance -2360 ml -60 ml Intake Oral 240 ml 240 ml Output Urine Total 300 ml Hemodialysis UF 2600 ml # Voids 3 4 Laboratory Tests Test 10/09/16 06:25 White Blood Count 6.1 K/UL (4.8-10.8) Red Blood Count 2.76 M/UL (4.70-6.10) L Hemoglobin 8.3 G/DL (14.2-18.0) L Hematocrit 27.1 % (42.0-52.0) L Mean Corpuscular Volume 98 FL (80-99) Mean Corpuscular Hemoglobin 30.1 PG (27.0-31.0) Mean Corpuscular Hemoglobin Concent 30.7 G/DL (32.0-36.0) L Red Cell Distribution Width 25.2 % (11.6-14.8) H Platelet Count 292 K/UL (150-450) Mean Platelet Volume 6.7 FL (6.5-10.1) Neutrophils (%) (Auto) 74.4 % (45.0-75.0) Lymphocytes (%) (Auto) 12.9 % (20.0-45.0) L Monocytes (%) (Auto) 10.2 % (1.0-10.0) H Eosinophils (%) (Auto) 1.4 % (0.0-3.0) Basophils (%) (Auto) 1.1 % (0.0-2.0) Sodium Level 139 mEQ/L (135-145) Potassium Level 3.9 mEQ/L (3.4-4.9) Chloride Level 94 mEQ/L (98-107) L Carbon Dioxide Level 30 mEQ/L (20-30) Anion Gap 15 (5-15) Blood Urea Nitrogen 34 mg/dL (7-23) H Creatinine 4.2 mg/dL (0.7-1.2) H Estimat Glomerular Filtration Rate 17.6 mL/min (>60) Glucose Level 87 mg/dL (74-106) Calcium Level 8.9 mg/dL (8.6-10.2) Current Medications Medications (Trade) Dose Ordered Sig/Lillian Route PRN Reason Start Time Stop Time Status Last Admin Dose Admin Acetaminophen (Tylenol) 650 mg Q4H PRN ORAL Fever 10/06/16 15:30 11/05/16 15:29 Albuterol/ Ipratropium (DuoNeb 0.5-3(2.5)mg/3ml) 3 ml Q4H PRN HHN Shortness of Breath 10/06/16 15:00 10/11/16 14:59 Dextrose (Dextrose 50%) STAT PRN IV Hypoglycemia 10/06/16 19:30 11/05/16 19:29 Epoetin Joseph (Procrit (for ESRD on dialysis)) 5,000 units MON-TUE-TUE SUBQ 10/06/16 21:00 11/05/16 20:59 10/08/16 21:41 Insulin Aspart (NovoLOG) BEFORE MEALS AND HS SUBQ 10/06/16 16:30 11/05/16 16:29 Lidocaine (Lidoderm 5% PATCH) 1 patch DAILY TDERMAL 10/07/16 09:00 11/06/16 08:59 10/09/16 08:45 Lisinopril (Zestril) 2.5 mg Q12HR ORAL 10/06/16 21:00 11/05/16 20:59 10/09/16 08:45 Ondansetron HCl (Zofran) 4 mg Q6H PRN IVP Nausea & Vomiting 10/06/16 13:30 11/05/16 13:29 Pantoprazole (Protonix) 40 mg ACBREAKFAST ORAL 10/09/16 06:30 11/06/16 08:59 10/09/16 06:15 Polyethylene Glycol (Miralax) 17 gm DAILYPRN PRN ORAL Constipation 10/06/16 19:30 11/05/16 19:29 Temazepam (Restoril) 15 mg HSPRN PRN ORAL Insomnia 10/06/16 19:30 10/13/16 19:29 Tramadol HCl (Ultram) 50 mg Q4H PRN ORAL moderate pain 10/06/16 16:15 10/13/16 16:14 10/09/16 06:15 Vitamin B Complex/ Vit C/Folic Acid (Nephrovite) 1 tab DAILY ORAL 10/07/16 09:00 11/06/16 08:59 10/09/16 08:45 Objective HEAD AND NECK: Showed no jugular venous distention or carotid bruits. LUNGS: Clear. CARDIOVASCULAR: Shows regular S1 and S2 with no gallop or murmur. ABDOMEN: Soft and nontender. EXTREMITIES: No pitting edema. Dialysis access in the right chest. DILIA GUERRERO Oct 09, 2016 14:31
--- NOTE | 2016-10-09 14:37 | Diagnostic Imaging Report ---
Indications: Chest pain, hypertension, 60-year-old male Technique: Single day single isotope protocol utilized. Initially, resting images obtained using IV administration 10.5 millicuries 99M technetium Myoview. Subsequently, patient underwent adenosine stress testing. See cardiology report for details. During adenosine infusion, IV administration 30.5 mCi 99 M technetium Myoview. SPECT and planar images obtained. SPECT images gated to 8 phases of the cardiac cycle were also obtained, and reformatted into cine images for evaluation of ejection fraction. Comparison: None Findings: Per cardiology report, patient experienced no symptoms. Per cardiology report, resting EKG demonstrates normal sinus rhythm with PVCs. No ST changes are reported during infusion. Imaging demonstrates questionable slightly decreased perfusion of anteroseptal wall which does not change on the resting images. No reversible post stress perfusion defects are demonstrated. There is left ventricular dilatation on both image acquisitions. Calculated post stress ejection fraction 32%. There is global decreased wall motion Impression: Nonischemic clinical response to pharmacologic stress, per cardiology report Nonischemic electrocardiographic response to pharmacologic stress, per cardiology report Very questionable anteroseptal fixed perfusion defect, possibly representing an infarct if real, but no findings to suggest ischemia, at level of stress achieved. Calculated post stress ejection fraction 32%. Note that the is degree of left ventricular dilatation and degree of ejection fraction and wall motion abnormality is out of proportion to the perfusion abnormality. The possibility of nonischemic cardiomyopathy should be considered
--- NOTE | 2016-10-09 15:02 | General Progress Note ---
Assessment/Plan Assessment/Plan Assessment/Plan Problems: (1) GIB (gastrointestinal bleeding) ICD Codes: K92.2 - Gastrointestinal hemorrhage, unspecified SNOMED: 67563291 (2) Cocaine abuse ICD Codes: F14.10 - Cocaine abuse, uncomplicated SNOMED: 88310543, 947627750 (3) Anemia in chronic kidney disease ICD Codes: N18.9 - Chronic kidney disease, unspecified; D63.1 - Anemia in chronic kidney disease SNOMED: 761974782, 220465987 (4) Chest pain ICD Codes: R07.9 - Chest pain, unspecified SNOMED: 99438064, 612732185 Qualifiers: Qualified Codes: R07.9 - Chest pain, unspecified Status: unchanged Assessment/Plan plan for colonoscopy after stress test D/W cardiology cardiac diet monitor H&H, transfuse prn OB stool positive x 3 ppi fu labs Subjective Allergies: Coded Allergies: No Known Allergies (Unverified , 09/28/16) Subjective Feels OK no abd pain tolerating PO (+) BM Objective Last 24 Hour Vital Signs Date Time Temp Pulse Resp B/P Pulse Ox O2 Delivery O2 Flow Rate FiO2 10/09/16 12:00 100 10/09/16 11:17 97.6 101 20 133/78 100 Room Air 10/09/16 08:45 122/79 10/09/16 08:11 105 20 Room Air 10/09/16 08:07 97.2 99 20 122/79 100 Room Air 10/09/16 08:00 104 10/09/16 04:09 98.3 83 20 119/65 97 Room Air 10/09/16 04:00 88 10/09/16 00:22 97.5 92 19 108/65 95 Room Air 10/09/16 00:00 105 10/08/16 21:00 119/69 10/08/16 20:08 95 20 Room Air 10/08/16 20:06 97.5 95 15 112/65 93 Room Air 10/08/16 20:00 94 10/08/16 16:00 96.4 94 13 113/63 95 10/08/16 16:00 93 Intake and Output 10/08/16 10/09/16 19:00 07:00 Intake Total 240 ml 240 ml Output Total 2600 ml 300 ml Balance -2360 ml -60 ml Intake Oral 240 ml 240 ml Output Urine Total 300 ml Hemodialysis UF 2600 ml # Voids 3 4 Laboratory Tests 10/09/16 06:25: White Blood Count 6.1, Red Blood Count 2.76L, Hemoglobin 8.3L, Hematocrit 27.1L , Mean Corpuscular Volume 98, Mean Corpuscular Hemoglobin 30.1, Mean Corpuscular Hemoglobin Concent 30.7L, Red Cell Distribution Width 25.2H, Platelet Count 292, Mean Platelet Volume 6.7, Neutrophils (%) (Auto) 74.4, Lymphocytes (%) (Auto) 12.9L, Monocytes (%) (Auto) 10.2H, Eosinophils (%) (Auto ) 1.4, Basophils (%) (Auto) 1.1, Sodium Level 139, Potassium Level 3.9, Chloride Level 94L, Carbon Dioxide Level 30, Anion Gap 15, Blood Urea Nitrogen 34H, Creatinine 4.2H, Estimat Glomerular Filtration Rate 17.6, Glucose Level 87 , Calcium Level 8.9 Height (Feet): 5 Height (Inches): 5.00 Weight (Pounds): 180 Objective WDWN NCAT Supple CTA RR soft ND NT no edema non focal ONESIMO PERALES Oct 09, 2016 15:02
--- NOTE | 2016-10-09 15:08 | General Progress Note ---
Assessment/Plan Problem List: (1) Cocaine abuse ICD Codes: F14.10 - Cocaine abuse, uncomplicated SNOMED: 67856679, 320376319 (2) Chest pain ICD Codes: R07.9 - Chest pain, unspecified SNOMED: 53448216, 502242474 Qualifiers: Qualified Codes: R07.9 - Chest pain, unspecified Status: progressing Assessment/Plan afebrile no wheezing vitals stable no cp moniter for bleeding Subjective ROS Limited/Unobtainable: Yes Allergies: Coded Allergies: No Known Allergies (Unverified , 09/28/16) Objective Last 24 Hour Vital Signs Date Time Temp Pulse Resp B/P Pulse Ox O2 Delivery O2 Flow Rate FiO2 10/09/16 12:00 100 10/09/16 11:17 97.6 101 20 133/78 100 Room Air 10/09/16 08:45 122/79 10/09/16 08:11 105 20 Room Air 10/09/16 08:07 97.2 99 20 122/79 100 Room Air 10/09/16 08:00 104 10/09/16 04:09 98.3 83 20 119/65 97 Room Air 10/09/16 04:00 88 10/09/16 00:22 97.5 92 19 108/65 95 Room Air 10/09/16 00:00 105 10/08/16 21:00 119/69 10/08/16 20:08 95 20 Room Air 10/08/16 20:06 97.5 95 15 112/65 93 Room Air 10/08/16 20:00 94 10/08/16 16:00 96.4 94 13 113/63 95 10/08/16 16:00 93 Intake and Output 10/08/16 10/09/16 19:00 07:00 Intake Total 240 ml 240 ml Output Total 2600 ml 300 ml Balance -2360 ml -60 ml Intake Oral 240 ml 240 ml Output Urine Total 300 ml Hemodialysis UF 2600 ml # Voids 3 4 Laboratory Tests 10/09/16 06:25: White Blood Count 6.1, Red Blood Count 2.76L, Hemoglobin 8.3L, Hematocrit 27.1L , Mean Corpuscular Volume 98, Mean Corpuscular Hemoglobin 30.1, Mean Corpuscular Hemoglobin Concent 30.7L, Red Cell Distribution Width 25.2H, Platelet Count 292, Mean Platelet Volume 6.7, Neutrophils (%) (Auto) 74.4, Lymphocytes (%) (Auto) 12.9L, Monocytes (%) (Auto) 10.2H, Eosinophils (%) (Auto ) 1.4, Basophils (%) (Auto) 1.1, Sodium Level 139, Potassium Level 3.9, Chloride Level 94L, Carbon Dioxide Level 30, Anion Gap 15, Blood Urea Nitrogen 34H, Creatinine 4.2H, Estimat Glomerular Filtration Rate 17.6, Glucose Level 87 , Calcium Level 8.9 Height (Feet): 5 Height (Inches): 5.00 Weight (Pounds): 180 EENT: PERRL/EOMI Neck: supple Cardiovascular: normal rate Respiratory/Chest: lungs clear Abdomen: soft Liu Elizondo MD Oct 09, 2016 15:08
--- NOTE | 2016-10-09 15:33 | General Progress Note ---
Assessment/Plan Status: unchanged Assessment/Plan Status: (1) ESRD (end stage renal disease) on dialysis (2) Chest pain (3) Cocaine abuse (4) Anemia in chronic kidney disease (5) ? DVT right UE (6) Cardiomyopathy: Global left ventricular hypokinesis. Worse septal apper akinetic s. Left ventricular ejection fraction estimated to be 30-35 %. Plan: Next HD Tuesday10/11/16 Vebnous duplex right UE On marcie inhibitors- per consultants ? DC planning Subjective ROS Limited/Unobtainable: No Allergies: Coded Allergies: No Known Allergies (Unverified , 09/28/16) Objective Last 24 Hour Vital Signs Date Time Temp Pulse Resp B/P Pulse Ox O2 Delivery O2 Flow Rate FiO2 10/09/16 12:00 100 10/09/16 11:17 97.6 101 20 133/78 100 Room Air 10/09/16 08:45 122/79 10/09/16 08:11 105 20 Room Air 10/09/16 08:07 97.2 99 20 122/79 100 Room Air 10/09/16 08:00 104 10/09/16 04:09 98.3 83 20 119/65 97 Room Air 10/09/16 04:00 88 10/09/16 00:22 97.5 92 19 108/65 95 Room Air 10/09/16 00:00 105 10/08/16 21:00 119/69 10/08/16 20:08 95 20 Room Air 10/08/16 20:06 97.5 95 15 112/65 93 Room Air 10/08/16 20:00 94 10/08/16 16:00 96.4 94 13 113/63 95 10/08/16 16:00 93 Intake and Output 10/08/16 10/09/16 19:00 07:00 Intake Total 240 ml 240 ml Output Total 2600 ml 300 ml Balance -2360 ml -60 ml Intake Oral 240 ml 240 ml Output Urine Total 300 ml Hemodialysis UF 2600 ml # Voids 3 4 Laboratory Tests 10/09/16 06:25: White Blood Count 6.1, Red Blood Count 2.76L, Hemoglobin 8.3L, Hematocrit 27.1L , Mean Corpuscular Volume 98, Mean Corpuscular Hemoglobin 30.1, Mean Corpuscular Hemoglobin Concent 30.7L, Red Cell Distribution Width 25.2H, Platelet Count 292, Mean Platelet Volume 6.7, Neutrophils (%) (Auto) 74.4, Lymphocytes (%) (Auto) 12.9L, Monocytes (%) (Auto) 10.2H, Eosinophils (%) (Auto ) 1.4, Basophils (%) (Auto) 1.1, Sodium Level 139, Potassium Level 3.9, Chloride Level 94L, Carbon Dioxide Level 30, Anion Gap 15, Blood Urea Nitrogen 34H, Creatinine 4.2H, Estimat Glomerular Filtration Rate 17.6, Glucose Level 87 , Calcium Level 8.9 Height (Feet): 5 Height (Inches): 5.00 Weight (Pounds): 180 General Appearance: mild distress Respiratory/Chest: decreased breath sounds Abdomen: soft Edema: other - right upper ext swollen Objective no change in PE KALEY RIOS Oct 09, 2016 15:33
[2016-10-09 16:00] VITALS: BP 131/77
--- NOTE | 2016-10-09 18:00 | Infectious Diseases Prog Note ---
Assessment/Plan Problems: (1) Colonization with VRE (vancomycin-resistant enterococcus) Assessment & Plan: keep in contact isolation (2) ESRD (end stage renal disease) on dialysis Assessment & Plan: continue HD as per renal. (3) Cocaine abuse Assessment & Plan: recommend counseling and rehab (4) Chest pain Assessment & Plan: had stress test , cardiology is following (5) Anemia in chronic kidney disease Assessment & Plan: stable, monitor H/H transfuse as needed Subjective Constitutional: Reports: no symptoms HEENT: Reports: no symptoms Respiratory: Reports: no symptoms Cardiovascular: Reports: no symptoms Gastrointestinal/Abdominal: Reports: no symptoms Genitourinary: Reports: no symptoms Neurologic: Reports: no symptoms Psychiatric: Reports: no symptoms Skin: Reports: no symptoms Allergies: Coded Allergies: No Known Allergies (Unverified , 09/28/16) Subjective he was doing well today, denied any symptoms. Objective Vital Signs Last 24 Hour Vital Signs Date Time Temp Pulse Resp B/P Pulse Ox O2 Delivery O2 Flow Rate FiO2 10/09/16 12:00 100 10/09/16 11:17 97.6 101 20 133/78 100 Room Air 10/09/16 08:45 122/79 10/09/16 08:11 105 20 Room Air 10/09/16 08:07 97.2 99 20 122/79 100 Room Air 10/09/16 08:00 104 10/09/16 04:09 98.3 83 20 119/65 97 Room Air 10/09/16 04:00 88 10/09/16 00:22 97.5 92 19 108/65 95 Room Air 10/09/16 00:00 105 10/08/16 21:00 119/69 10/08/16 20:08 95 20 Room Air 10/08/16 20:06 97.5 95 15 112/65 93 Room Air 10/08/16 20:00 94 Height (Feet): 5 Height (Inches): 5.00 Weight (Pounds): 180 General Appearance: WD/WN, no acute distress HEENT: normocephalic, atraumatic, anicteric, mucous membranes moist Respiratory/Chest: chest wall non-tender, lungs clear, normal breath sounds, no respiratory distress, no accessory muscle use Cardiovascular: normal peripheral pulses, normal rate, no gallop/murmur Abdomen: normal bowel sounds, soft, non tender, no organomegaly, non distended , no mass, no scars Extremities: no cyanosis Laboratory Tests Test 10/09/16 06:25 White Blood Count 6.1 K/UL (4.8-10.8) Red Blood Count 2.76 M/UL (4.70-6.10) L Hemoglobin 8.3 G/DL (14.2-18.0) L Hematocrit 27.1 % (42.0-52.0) L Mean Corpuscular Volume 98 FL (80-99) Mean Corpuscular Hemoglobin 30.1 PG (27.0-31.0) Mean Corpuscular Hemoglobin Concent 30.7 G/DL (32.0-36.0) L Red Cell Distribution Width 25.2 % (11.6-14.8) H Platelet Count 292 K/UL (150-450) Mean Platelet Volume 6.7 FL (6.5-10.1) Neutrophils (%) (Auto) 74.4 % (45.0-75.0) Lymphocytes (%) (Auto) 12.9 % (20.0-45.0) L Monocytes (%) (Auto) 10.2 % (1.0-10.0) H Eosinophils (%) (Auto) 1.4 % (0.0-3.0) Basophils (%) (Auto) 1.1 % (0.0-2.0) Sodium Level 139 mEQ/L (135-145) Potassium Level 3.9 mEQ/L (3.4-4.9) Chloride Level 94 mEQ/L (98-107) L Carbon Dioxide Level 30 mEQ/L (20-30) Anion Gap 15 (5-15) Blood Urea Nitrogen 34 mg/dL (7-23) H Creatinine 4.2 mg/dL (0.7-1.2) H Estimat Glomerular Filtration Rate 17.6 mL/min (>60) Glucose Level 87 mg/dL (74-106) Calcium Level 8.9 mg/dL (8.6-10.2) Current Medications Medications (Trade) Dose Ordered Sig/Lillian Route PRN Reason Start Time Stop Time Status Last Admin Dose Admin Acetaminophen (Tylenol) 650 mg Q4H PRN ORAL Fever 10/06/16 15:30 11/05/16 15:29 Albuterol/ Ipratropium (DuoNeb 0.5-3(2.5)mg/3ml) 3 ml Q4H PRN HHN Shortness of Breath 10/06/16 15:00 10/11/16 14:59 Dextrose (Dextrose 50%) STAT PRN IV Hypoglycemia 10/06/16 19:30 11/05/16 19:29 Epoetin Joseph (Procrit (for ESRD on dialysis)) 5,000 units TUE-TUE-TUE SUBQ 10/06/16 21:00 11/05/16 20:59 10/08/16 21:41 Insulin Aspart (NovoLOG) BEFORE MEALS AND HS SUBQ 10/06/16 16:30 11/05/16 16:29 Lidocaine (Lidoderm 5% PATCH) 1 patch DAILY TDERMAL 10/07/16 09:00 11/06/16 08:59 10/09/16 08:45 Lisinopril (Zestril) 2.5 mg Q12HR ORAL 10/06/16 21:00 11/05/16 20:59 10/09/16 08:45 Ondansetron HCl (Zofran) 4 mg Q6H PRN IVP Nausea & Vomiting 10/06/16 13:30 11/05/16 13:29 Pantoprazole (Protonix) 40 mg ACBREAKFAST ORAL 10/09/16 06:30 11/06/16 08:59 10/09/16 06:15 Polyethylene Glycol (Miralax) 17 gm DAILYPRN PRN ORAL Constipation 10/06/16 19:30 11/05/16 19:29 Temazepam (Restoril) 15 mg HSPRN PRN ORAL Insomnia 10/06/16 19:30 10/13/16 19:29 Tramadol HCl (Ultram) 50 mg Q4H PRN ORAL moderate pain 10/06/16 16:15 10/13/16 16:14 10/09/16 06:15 Vitamin B Complex/ Vit C/Folic Acid (Nephrovite) 1 tab DAILY ORAL 10/07/16 09:00 11/06/16 08:59 10/09/16 08:45 Ivania Bhardwaj M.D. Oct 09, 2016 18:00
[2016-10-09 20:00] VITALS: BP 129/81
[2016-10-10 00:32] VITALS: BP 123/71
[2016-10-10 04:14] VITALS: BP 121/74
[2016-10-10] MEDS: NovoLOG Insulin Flexpen SUBQ SCH ×4 (06:30→20:35)
[2016-10-10 07:56] VITALS: BP 121/66
[2016-10-10] MEDS: Nephrovite tab ORAL SCH (08:21)
[2016-10-10] MEDS: Lisinopril 2.5mg tab ORAL SCH ×2 (08:21→20:26)
--- NOTE | 2016-10-10 09:44 | General Progress Note ---
Assessment/Plan Assessment/Plan ASSESSMENT: 1. Anemia secondary to end-stage renal disease. Ferritin is 711. Is on epogen 2. Acute drop in hgb, consider GI bleed, to have colo/egd after cardiac eval, currently stable 3. Thrombocytopenia potentially secondary to underlying infection. hep and hiv - , now better 4. Coagulopathy INR is 1.2, improved 5. Diabetes mellitus. 6. End-stage renal disease on hemodialysis. 7. Cocaine use history. RECOMMENDATIONS: 1. Monitor counts. 2. Transfuse if hemoglobin <7.5. 3. Continue epogen 4. Followup GI recs re endoscopy 5. Ultrasound of the abdomen reviewed 6. Anemia workup reviewed 7. Followup on Nephrology, Pulmonary, and Cardiology recs 8. Transfuse if plts <20k 9. DVT prophylaxis with scds 10. GI prophylaxis ppi 11. Pain control. 12. staff. Thank you, Jean-Claude Lopez MD Subjective Constitutional: Reports: no symptoms HEENT: Reports: no symptoms Cardiovascular: Reports: no symptoms Respiratory: Reports: no symptoms Gastrointestinal/Abdominal: Reports: no symptoms Genitourinary: Reports: no symptoms 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: Reports: no symptoms Endocrine: Reports: no symptoms Hematologic/Lymphatic: Reports: anemia Allergies: Coded Allergies: No Known Allergies (Unverified , 09/28/16) Subjective stable, no fevers, or chills reported Objective Last 24 Hour Vital Signs Date Time Temp Pulse Resp B/P Pulse Ox O2 Delivery O2 Flow Rate FiO2 10/10/16 08:21 121/66 10/10/16 07:56 96.6 106 20 121/66 93 Room Air 10/10/16 07:50 106 18 Room Air 10/10/16 04:14 98.3 86 20 121/74 94 Room Air 10/10/16 03:57 104 10/10/16 00:32 98.5 99 21 123/71 96 Room Air 10/09/16 23:57 105 10/09/16 20:27 131/77 10/09/16 20:00 93 10/09/16 20:00 98.3 99 20 129/81 99 Room Air 10/09/16 19:00 92 18 Room Air 10/09/16 16:00 97.2 98 20 131/77 100 Room Air 10/09/16 16:00 97 10/09/16 12:00 100 10/09/16 11:17 97.6 101 20 133/78 100 Room Air Intake and Output 10/09/16 10/10/16 19:00 07:00 Intake Total 440 ml 200 ml Output Total 500 ml Balance 440 ml -300 ml Intake Oral 440 ml 200 ml Output Urine Total 500 ml # Voids 2 1 # Bowel Movements 1 Height (Feet): 5 Height (Inches): 5.00 Weight (Pounds): 180 General Appearance: no apparent distress EENT: TMs normal Neck: supple Cardiovascular: regular rhythm Respiratory/Chest: chest wall non-tender Abdomen: soft Genitourinary/Rectal: heme negative stool Extremities: non-tender Edema: no edema noted Leg (L), no edema noted Leg (R) Edema: mild edema Neurologic: alert Skin: warm/dry JEAN-CLAUDE LOPEZ Oct 10, 2016 09:44
--- NOTE | 2016-10-10 10:29 | General Progress Note ---
Assessment/Plan Assessment/Plan (1) Cocaine abuse (2) Chest pain (3) CHF (4) ESRD on Hemodialysis (5) Lumbar sprain s/p fall Pt will be continued on Lidoderm patch and tramadol. Pt was d/w Dr. Rodriguez and he concurred. Subjective Date patient seen: Oct 10, 2016 Time patient seen: 09:00 - am Allergies: Coded Allergies: No Known Allergies (Unverified , 09/28/16) Subjective REVIEW OF SYSTEMS: Denies rash, fever, chills, sweating, dizziness, drowsiness, blurred vision, sore throat, or change in weight. No nausea, vomiting, diarrhea, or blood in the stool or urine. No bowel or bladder incontinence. No dysuria. c/o back pain SUBJECTIVE: Pain has been unchanged and he uses the tramadol as needed. Objective Last 24 Hour Vital Signs Date Time Temp Pulse Resp B/P Pulse Ox O2 Delivery O2 Flow Rate FiO2 10/10/16 08:21 121/66 10/10/16 07:56 96.6 106 20 121/66 93 Room Air 10/10/16 07:50 106 18 Room Air 10/10/16 04:14 98.3 86 20 121/74 94 Room Air 10/10/16 03:57 104 10/10/16 00:32 98.5 99 21 123/71 96 Room Air 10/09/16 23:57 105 10/09/16 20:27 131/77 10/09/16 20:00 93 10/09/16 20:00 98.3 99 20 129/81 99 Room Air 10/09/16 19:00 92 18 Room Air 10/09/16 16:00 97.2 98 20 131/77 100 Room Air 10/09/16 16:00 97 10/09/16 12:00 100 10/09/16 11:17 97.6 101 20 133/78 100 Room Air Intake and Output 10/09/16 10/10/16 19:00 07:00 Intake Total 440 ml 200 ml Output Total 500 ml Balance 440 ml -300 ml Intake Oral 440 ml 200 ml Output Urine Total 500 ml # Voids 2 1 # Bowel Movements 1 Height (Feet): 5 Height (Inches): 5.00 Weight (Pounds): 180 Objective PHYSICAL EXAMINATION: GENERAL: Alert, awake, and oriented. HEENT: PERRLA. NECK: Range of motion is full in all directions. No tenderness to paracervical muscles. No adenopathy. LUNGS: Decreased breath sounds bilaterally. HEART: S1 and S2, regular. ABDOMEN: Obese. BACK: Range of motion is decreased in flexion and extension with tenderness to paraspinous and trapezius muscles. EXTREMITIES: No cyanosis, no clubbing, edema noted on RUE. NEURO: No changes. ARRON EDWARD Oct 10, 2016 10:29
[2016-10-10 11:41] VITALS: BP 123/74
--- NOTE | 2016-10-10 12:48 | General Progress Note ---
Assessment/Plan Assessment/Plan Assessment/Plan Problems: (1) GIB (gastrointestinal bleeding) ICD Codes: K92.2 - Gastrointestinal hemorrhage, unspecified SNOMED: 77977745 (2) Cocaine abuse ICD Codes: F14.10 - Cocaine abuse, uncomplicated SNOMED: 02833942, 137568834 (3) Anemia in chronic kidney disease ICD Codes: N18.9 - Chronic kidney disease, unspecified; D63.1 - Anemia in chronic kidney disease SNOMED: 499764126, 005931031 (4) Chest pain ICD Codes: R07.9 - Chest pain, unspecified SNOMED: 71498774, 664648259 Qualifiers: Qualified Codes: R07.9 - Chest pain, unspecified Status: unchanged Assessment/Plan plan for colonoscopy after stress test D/W cardiology cardiac diet monitor H&H, transfuse prn OB stool positive x 3 ppi fu labs Subjective Allergies: Coded Allergies: No Known Allergies (Unverified , 09/28/16) Subjective Feels OK no abd pain tolerating PO (+) BM Objective Last 24 Hour Vital Signs Date Time Temp Pulse Resp B/P Pulse Ox O2 Delivery O2 Flow Rate FiO2 10/10/16 11:41 96.8 96 20 123/74 94 Room Air 10/10/16 08:21 121/66 10/10/16 08:00 117 10/10/16 07:56 96.6 106 20 121/66 93 Room Air 10/10/16 07:50 106 18 Room Air 10/10/16 04:14 98.3 86 20 121/74 94 Room Air 10/10/16 03:57 104 10/10/16 00:32 98.5 99 21 123/71 96 Room Air 10/09/16 23:57 105 10/09/16 20:27 131/77 10/09/16 20:00 93 10/09/16 20:00 98.3 99 20 129/81 99 Room Air 10/09/16 19:00 92 18 Room Air 10/09/16 16:00 97.2 98 20 131/77 100 Room Air 10/09/16 16:00 97 Intake and Output 10/09/16 10/10/16 19:00 07:00 Intake Total 440 ml 200 ml Output Total 500 ml Balance 440 ml -300 ml Intake Oral 440 ml 200 ml Output Urine Total 500 ml # Voids 2 1 # Bowel Movements 1 Height (Feet): 5 Height (Inches): 5.00 Weight (Pounds): 180 Objective WDWN NCAT Supple CTA RR soft ND NT no edema non focal ONESIMO PERALES Oct 10, 2016 12:48
[2016-10-10] MEDS: Analgesic Balm 15gm TOPIC SCH ×3 (12:57→20:36)
[2016-10-10 16:00] VITALS: BP 120/72
[2016-10-10 20:00] VITALS: BP 111/79
[2016-10-10] MEDS: traMADol 50mg tab ORAL PRN (20:26)
[2016-10-11 00:16] VITALS: BP 115/74
[2016-10-11 04:08] VITALS: BP 121/74
[2016-10-11] MEDS ORDERED: Heparin Sod 1000 units/ml 10ml IV SCH (06:00)
[2016-10-11] MEDS: NovoLOG Insulin Flexpen SUBQ SCH ×4 (06:29→21:00)
[2016-10-11 08:06] LABS: INR 1.3 (0.9-1.1); PROTHROMBIN TIME 12.9 SEC (9.30-11.50)
[2016-10-11 09:00] VITALS: BP 132/79
--- NOTE | 2016-10-11 10:03 | General Progress Note ---
Assessment/Plan Assessment/Plan (1) Cocaine abuse (2) Chest pain (3) CHF (4) ESRD on Hemodialysis (5) Lumbar sprain s/p fall Pt will be continued on Bengay cream, Lidoderm patch and tramadol. Pt was d/w Dr. Rodriguez and he concurred. Subjective Date patient seen: Oct 11, 2016 Time patient seen: 07:15 - am Allergies: Coded Allergies: No Known Allergies (Unverified , 09/28/16) Subjective REVIEW OF SYSTEMS: Denies rash, fever, chills, sweating, dizziness, drowsiness, blurred vision, sore throat, or change in weight. No nausea, vomiting, diarrhea, or blood in the stool or urine. No bowel or bladder incontinence. No dysuria. c/o back pain SUBJECTIVE: His pain has been better tolerated on the Bengay cream and uses the Tramadol reducing his pain from a 5/10 to a 1/10. Objective Last 24 Hour Vital Signs Date Time Temp Pulse Resp B/P Pulse Ox O2 Delivery O2 Flow Rate FiO2 10/11/16 08:35 88 18 Room Air 10/11/16 04:08 98.3 88 21 121/74 96 Room Air 10/11/16 04:00 103 10/11/16 00:16 98.6 97 20 115/74 98 Room Air 10/10/16 20:26 111/79 10/10/16 20:00 97.3 101 31 111/79 97 Room Air 10/10/16 20:00 99 10/10/16 19:31 98 18 Room Air 10/10/16 16:00 96.3 101 23 120/72 100 Room Air 10/10/16 16:00 93 10/10/16 12:00 100 10/10/16 11:41 96.8 96 20 123/74 94 Room Air Intake and Output 10/10/16 10/11/16 19:00 07:00 Intake Total 390 ml 200 ml Output Total 100 ml Balance 390 ml 100 ml Intake Oral 390 ml 200 ml Output Urine Total 100 ml # Voids 1 4 # Bowel Movements 1 1 Laboratory Tests 10/11/16 06:30: Prothrombin Time 12.9H, Prothromb Time International Ratio 1.3H, Activated Partial Thromboplast Time 29 Height (Feet): 5 Height (Inches): 5.00 Weight (Pounds): 180 Objective PHYSICAL EXAMINATION: GENERAL: Alert, awake, and oriented. HEENT: PERRLA. NECK: Range of motion is full in all directions. No tenderness to paracervical muscles. No adenopathy. LUNGS: Decreased breath sounds bilaterally. HEART: S1 and S2, regular. ABDOMEN: Obese. BACK: Range of motion is decreased in flexion and extension with tenderness to paraspinous and trapezius muscles. EXTREMITIES: No cyanosis, no clubbing, edema noted on RUE. NEURO: No changes. ARRON EDWARD Oct 11, 2016 10:03
[2016-10-11] MEDS: Nephrovite tab ORAL SCH (10:33)
[2016-10-11] MEDS: Analgesic Balm 15gm TOPIC SCH ×4 (10:36→21:19)
[2016-10-11] MEDS: Lisinopril 2.5mg tab ORAL SCH ×2 (10:38→21:18)
--- NOTE | 2016-10-11 11:03 | General Progress Note ---
Assessment/Plan Assessment/Plan ASSESSMENT: 1. Anemia secondary to end-stage renal disease. Ferritin is 711. Is on epogen and HD prn 2. Acute drop in hgb, consider GI bleed, to have colo/egd after cardiac eval, currently stable 3. Thrombocytopenia potentially secondary to underlying infection. hep and hiv - , now better 4. Coagulopathy INR is 1.2, improved 5. Diabetes mellitus. 6. End-stage renal disease on hemodialysis. 7. Cocaine use history. RECOMMENDATIONS: 1. Monitor counts. 2. Transfuse if hemoglobin less than 7.5. 3. Continue epogen 4. Followup GI recs re endoscopy 5. Ultrasound of the abdomen reviewed 6. Anemia workup has been reviewed 7. Followup on Nephrology, Pulmonary, and Cardiology recs 8. Transfuse if plts <20k 9. DVT prophylaxis with scds 10. GI prophylaxis ppi 11. Pain control. 12. staff. Thank you, Hugh Lopez MD Subjective Constitutional: Reports: no symptoms HEENT: Reports: no symptoms Cardiovascular: Reports: no symptoms Respiratory: Reports: no symptoms Gastrointestinal/Abdominal: Reports: poor appetite Genitourinary: Reports: no symptoms 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: Reports: no symptoms Endocrine: Reports: no symptoms Hematologic/Lymphatic: Reports: anemia Allergies: Coded Allergies: No Known Allergies (Unverified , 09/28/16) Subjective awake, pain better controlled, no complaints Objective Last 24 Hour Vital Signs Date Time Temp Pulse Resp B/P Pulse Ox O2 Delivery O2 Flow Rate FiO2 10/11/16 10:38 132/79 10/11/16 08:35 88 18 Room Air 10/11/16 04:08 98.3 88 21 121/74 96 Room Air 10/11/16 04:00 103 10/11/16 00:16 98.6 97 20 115/74 98 Room Air 10/10/16 20:26 111/79 10/10/16 20:00 97.3 101 31 111/79 97 Room Air 10/10/16 20:00 99 10/10/16 19:31 98 18 Room Air 10/10/16 16:00 96.3 101 23 120/72 100 Room Air 10/10/16 16:00 93 10/10/16 12:00 100 10/10/16 11:41 96.8 96 20 123/74 94 Room Air Intake and Output 10/10/16 10/11/16 19:00 07:00 Intake Total 390 ml 200 ml Output Total 100 ml Balance 390 ml 100 ml Intake Oral 390 ml 200 ml Output Urine Total 100 ml # Voids 1 4 # Bowel Movements 1 1 Laboratory Tests 10/11/16 06:30: Prothrombin Time 12.9H, Prothromb Time International Ratio 1.3H, Activated Partial Thromboplast Time 29 Height (Feet): 5 Height (Inches): 5.00 Weight (Pounds): 180 General Appearance: no apparent distress EENT: TMs normal Neck: non-tender Cardiovascular: regular rhythm Respiratory/Chest: normal breath sounds Abdomen: non tender Extremities: non-tender Edema: no edema noted Leg (L), no edema noted Leg (R) Edema: mild edema Neurologic: alert Skin: normal pigmentation Hugh Lopez Oct 11, 2016 11:02
--- NOTE | 2016-10-11 11:22 | General Progress Note ---
Assessment/Plan Status: unchanged Assessment/Plan Status: (1) ESRD (end stage renal disease) on dialysis (2) Chest pain (3) Cocaine abuse (4) Anemia in chronic kidney disease (5) ? DVT right UE (6) Cardiomyopathy: Global left ventricular hypokinesis. Worse septal apper akinetic s. Left ventricular ejection fraction estimated to be 30-35 %. Plan: Next HD Tuesday10/11/16- is held as the permacath is out ! Will be replaced on 10/12 per radiology Vebnous duplex right UE On marcie inhibitors- per consultants ? DC planning Subjective ROS Limited/Unobtainable: No Constitutional: Reports: malaise, weakness Allergies: Coded Allergies: No Known Allergies (Unverified , 09/28/16) Objective Last 24 Hour Vital Signs Date Time Temp Pulse Resp B/P Pulse Ox O2 Delivery O2 Flow Rate FiO2 10/11/16 10:38 132/79 10/11/16 08:35 88 18 Room Air 10/11/16 04:08 98.3 88 21 121/74 96 Room Air 10/11/16 04:00 103 10/11/16 00:16 98.6 97 20 115/74 98 Room Air 10/10/16 20:26 111/79 10/10/16 20:00 97.3 101 31 111/79 97 Room Air 10/10/16 20:00 99 10/10/16 19:31 98 18 Room Air 10/10/16 16:00 96.3 101 23 120/72 100 Room Air 10/10/16 16:00 93 10/10/16 12:00 100 10/10/16 11:41 96.8 96 20 123/74 94 Room Air Intake and Output 10/10/16 10/11/16 19:00 07:00 Intake Total 390 ml 200 ml Output Total 100 ml Balance 390 ml 100 ml Intake Oral 390 ml 200 ml Output Urine Total 100 ml # Voids 1 4 # Bowel Movements 1 1 Laboratory Tests 10/11/16 06:30: Prothrombin Time 12.9H, Prothromb Time International Ratio 1.3H, Activated Partial Thromboplast Time 29 Height (Feet): 5 Height (Inches): 5.00 Weight (Pounds): 180 General Appearance: no apparent distress Respiratory/Chest: other - permacath out since last night Abdomen: distended Objective no change in PE FOULADIAN,KALEY Oct 11, 2016 11:22
--- NOTE | 2016-10-11 11:36 | General Progress Note ---
Assessment/Plan Problem List: (1) Cocaine abuse ICD Codes: F14.10 - Cocaine abuse, uncomplicated SNOMED: 53109869, 197195608 (2) Chest pain ICD Codes: R07.9 - Chest pain, unspecified SNOMED: 68305625, 489483398 Qualifiers: Qualified Codes: R07.9 - Chest pain, unspecified Status: progressing Assessment/Plan pulled out permacath replacement per renal reviewed chart and labs gi bleed moniter Subjective ROS Limited/Unobtainable: Yes Allergies: Coded Allergies: No Known Allergies (Unverified , 09/28/16) Objective Last 24 Hour Vital Signs Date Time Temp Pulse Resp B/P Pulse Ox O2 Delivery O2 Flow Rate FiO2 10/11/16 10:38 132/79 10/11/16 08:35 88 18 Room Air 10/11/16 04:08 98.3 88 21 121/74 96 Room Air 10/11/16 04:00 103 10/11/16 00:16 98.6 97 20 115/74 98 Room Air 10/10/16 20:26 111/79 10/10/16 20:00 97.3 101 31 111/79 97 Room Air 10/10/16 20:00 99 10/10/16 19:31 98 18 Room Air 10/10/16 16:00 96.3 101 23 120/72 100 Room Air 10/10/16 16:00 93 10/10/16 12:00 100 10/10/16 11:41 96.8 96 20 123/74 94 Room Air Intake and Output 10/10/16 10/11/16 19:00 07:00 Intake Total 390 ml 200 ml Output Total 100 ml Balance 390 ml 100 ml Intake Oral 390 ml 200 ml Output Urine Total 100 ml # Voids 1 4 # Bowel Movements 1 1 Laboratory Tests 10/11/16 06:30: Prothrombin Time 12.9H, Prothromb Time International Ratio 1.3H, Activated Partial Thromboplast Time 29 Height (Feet): 5 Height (Inches): 5.00 Weight (Pounds): 180 General Appearance: confused Cardiovascular: normal rate Respiratory/Chest: lungs clear Abdomen: soft Liu Elizondo MD Oct 11, 2016 11:36
[2016-10-11 13:00] VITALS: BP 138/72
--- NOTE | 2016-10-11 14:35 | Pulmonology Progress Note ---
Assessment/Plan Problems: (1) Chest pain Assessment & Plan: stress study was negative (2) Acute respiratory failure Assessment & Plan: improved (3) Anemia in chronic kidney disease (4) ESRD (end stage renal disease) on dialysis (5) Fluid overload (6) Cocaine abuse (7) Back pain Assessment/Plan Hd access fell off, Needs a new access cardiac evaluation appreciated HD as needed med/surg if ok with Cardio Subjective ROS Limited/Unobtainable: No Constitutional: Reports: no symptoms HEENT: Repors: no symptoms Respiratory: Reports: no symptoms Allergies: Coded Allergies: No Known Allergies (Unverified , 09/28/16) Objective Last 24 Hour Vital Signs Date Time Temp Pulse Resp B/P Pulse Ox O2 Delivery O2 Flow Rate FiO2 10/11/16 10:38 132/79 10/11/16 08:35 88 18 Room Air 10/11/16 04:08 98.3 88 21 121/74 96 Room Air 10/11/16 04:00 103 10/11/16 00:16 98.6 97 20 115/74 98 Room Air 10/10/16 20:26 111/79 10/10/16 20:00 97.3 101 31 111/79 97 Room Air 10/10/16 20:00 99 10/10/16 19:31 98 18 Room Air 10/10/16 16:00 96.3 101 23 120/72 100 Room Air 10/10/16 16:00 93 Intake and Output 10/10/16 10/11/16 19:00 07:00 Intake Total 390 ml 200 ml Output Total 100 ml Balance 390 ml 100 ml Intake Oral 390 ml 200 ml Output Urine Total 100 ml # Voids 1 4 # Bowel Movements 1 1 General Appearance: WD/WN HEENT: normocephalic, atraumatic Respiratory/Chest: chest wall non-tender, lungs clear Cardiovascular: normal peripheral pulses, normal rate Abdomen: normal bowel sounds, soft, non tender Genitourinary: normal external genitalia Extremities: no cyanosis Skin: no rash, no lesions 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 Laboratory Tests 10/11/16 06:30: Prothrombin Time 12.9H, Prothromb Time International Ratio 1.3H, Activated Partial Thromboplast Time 29 Current Medications Medications (Trade) Dose Ordered Sig/Lillian Route PRN Reason Start Time Stop Time Status Last Admin Dose Admin Acetaminophen (Tylenol) 650 mg Q4H PRN ORAL Fever 10/06/16 15:30 11/05/16 15:29 10/10/16 06:37 Albuterol/ Ipratropium (DuoNeb 0.5-3(2.5)mg/3ml) 3 ml Q4H PRN HHN Shortness of Breath 10/06/16 15:00 10/11/16 14:59 Dextrose (Dextrose 50%) STAT PRN IV Hypoglycemia 10/06/16 19:30 11/05/16 19:29 Epoetin Joseph (Procrit (for ESRD on dialysis)) 5,000 units MON-WED-TUE SUBQ 10/06/16 21:00 11/05/16 20:59 10/08/16 21:41 Heparin Sodium (Porcine) (Heparin Sod 1000 units/ml 10ml) 2,000 unit ONCE IV 10/11/16 06:00 10/11/16 18:00 Insulin Aspart (NovoLOG) BEFORE MEALS AND HS SUBQ 10/06/16 16:30 11/05/16 16:29 Lidocaine (Lidoderm 5% PATCH) 1 patch DAILY TDERMAL 10/07/16 09:00 11/06/16 08:59 10/11/16 10:35 Lisinopril (Zestril) 2.5 mg Q12HR ORAL 10/06/16 21:00 11/05/16 20:59 10/11/16 10:38 Menthol/Methyl Salicylate (Bengay) 1 applic FOUR TIMES A DAY TOPIC 10/10/16 13:00 11/09/16 12:59 10/11/16 10:36 Ondansetron HCl (Zofran) 4 mg Q6H PRN IVP Nausea & Vomiting 10/06/16 13:30 11/05/16 13:29 Pantoprazole 40 mg 40 mg ACBREAKFAST ORAL 10/09/16 06:30 11/06/16 08:59 10/11/16 06:39 Polyethylene Glycol (Miralax) 17 gm DAILYPRN PRN ORAL Constipation 10/06/16 19:30 11/05/16 19:29 Sodium Chloride (Sodium Chloride 1000ml bag) 1,000 ml @ 500 mls/hr Q2H PRN IVLG sbp<90 during hd 10/11/16 06:00 10/11/16 18:00 Temazepam (Restoril) 15 mg HSPRN PRN ORAL Insomnia 10/06/16 19:30 10/13/16 19:29 Tramadol HCl (Ultram) 50 mg Q4H PRN ORAL moderate pain 10/06/16 16:15 10/13/16 16:14 10/10/16 20:26 Vitamin B Complex/ Vit C/Folic Acid (Nephrovite) 1 tab DAILY ORAL 10/07/16 09:00 11/06/16 08:59 10/11/16 10:33 CARLOS ALBERTO HERMAN Oct 11, 2016 14:35
--- NOTE | 2016-10-11 15:06 | Infectious Diseases Prog Note ---
Assessment/Plan Problems: (1) Colonization with VRE (vancomycin-resistant enterococcus) Assessment & Plan: keep in contact isolation (2) ESRD (end stage renal disease) on dialysis Assessment & Plan: continue HD as per renal. (3) Cocaine abuse Assessment & Plan: recommend counseling and rehab (4) Chest pain Assessment & Plan: had stress test , cardiology is following (5) Anemia in chronic kidney disease Assessment & Plan: stable, monitor H/H transfuse as needed Subjective Constitutional: Reports: no symptoms HEENT: Reports: no symptoms Respiratory: Reports: no symptoms Breasts: Reports: no symptoms Cardiovascular: Reports: no symptoms Gastrointestinal/Abdominal: Reports: no symptoms Genitourinary: Reports: no symptoms Neurologic: Reports: no symptoms Psychiatric: Reports: no symptoms Skin: Reports: no symptoms Endocrine: Reports: no symptoms Hematologic: Reports: no symptoms Allergies: Coded Allergies: No Known Allergies (Unverified , 09/28/16) Subjective he was doing well today, denied any symptoms. Objective Vital Signs Last 24 Hour Vital Signs Date Time Temp Pulse Resp B/P Pulse Ox O2 Delivery O2 Flow Rate FiO2 10/11/16 10:38 132/79 10/11/16 08:35 88 18 Room Air 10/11/16 04:08 98.3 88 21 121/74 96 Room Air 10/11/16 04:00 103 10/11/16 00:16 98.6 97 20 115/74 98 Room Air 10/10/16 20:26 111/79 10/10/16 20:00 97.3 101 31 111/79 97 Room Air 10/10/16 20:00 99 10/10/16 19:31 98 18 Room Air 10/10/16 16:00 96.3 101 23 120/72 100 Room Air 10/10/16 16:00 93 Height (Feet): 5 Height (Inches): 5.00 Weight (Pounds): 180 General Appearance: WD/WN, no acute distress HEENT: normocephalic, atraumatic, anicteric Respiratory/Chest: chest wall non-tender, lungs clear, normal breath sounds, no respiratory distress, no accessory muscle use Cardiovascular: normal peripheral pulses, normal rate, regular rhythm Abdomen: normal bowel sounds, soft, non tender, no organomegaly, non distended , no mass Extremities: no cyanosis, no clubbing Skin: no rash, no lesions Laboratory Tests Test 10/11/16 06:30 Prothrombin Time 12.9 SEC (9.30-11.50) H Prothromb Time International Ratio 1.3 (0.9-1.1) H Activated Partial Thromboplast Time 29 SEC (23-33) Current Medications Medications (Trade) Dose Ordered Sig/Lillian Route PRN Reason Start Time Stop Time Status Last Admin Dose Admin Acetaminophen (Tylenol) 650 mg Q4H PRN ORAL Fever 10/06/16 15:30 11/05/16 15:29 10/10/16 06:37 Dextrose (Dextrose 50%) STAT PRN IV Hypoglycemia 10/06/16 19:30 11/05/16 19:29 Epoetin Joseph (Procrit (for ESRD on dialysis)) 5,000 units MON-TUE-TUE SUBQ 10/06/16 21:00 11/05/16 20:59 10/08/16 21:41 Heparin Sodium (Porcine) (Heparin Sod 1000 units/ml 10ml) 2,000 unit ONCE IV 10/11/16 06:00 10/11/16 18:00 Insulin Aspart (NovoLOG) BEFORE MEALS AND HS SUBQ 10/06/16 16:30 11/05/16 16:29 Lidocaine (Lidoderm 5% PATCH) 1 patch DAILY TDERMAL 10/07/16 09:00 11/06/16 08:59 10/11/16 10:35 Lisinopril (Zestril) 2.5 mg Q12HR ORAL 10/06/16 21:00 11/05/16 20:59 10/11/16 10:38 Menthol/Methyl Salicylate (Bengay) 1 applic FOUR TIMES A DAY TOPIC 10/10/16 13:00 11/09/16 12:59 10/11/16 14:45 Ondansetron HCl (Zofran) 4 mg Q6H PRN IVP Nausea & Vomiting 10/06/16 13:30 11/05/16 13:29 Pantoprazole 40 mg 40 mg ACBREAKFAST ORAL 10/09/16 06:30 11/06/16 08:59 10/11/16 06:39 Polyethylene Glycol (Miralax) 17 gm DAILYPRN PRN ORAL Constipation 10/06/16 19:30 11/05/16 19:29 Sodium Chloride (Sodium Chloride 1000ml bag) 1,000 ml @ 500 mls/hr Q2H PRN IVLG sbp<90 during hd 10/11/16 06:00 10/11/16 18:00 Temazepam (Restoril) 15 mg HSPRN PRN ORAL Insomnia 10/06/16 19:30 10/13/16 19:29 Tramadol HCl (Ultram) 50 mg Q4H PRN ORAL moderate pain 10/06/16 16:15 10/13/16 16:14 10/10/16 20:26 Vitamin B Complex/ Vit C/Folic Acid (Nephrovite) 1 tab DAILY ORAL 10/07/16 09:00 11/06/16 08:59 10/11/16 10:33 Ivania Bhardwaj M.D. Oct 11, 2016 15:06
--- NOTE | 2016-10-11 15:55 | General Progress Note ---
Assessment/Plan Assessment/Plan Assessment/Plan Problems: (1) GIB (gastrointestinal bleeding) ICD Codes: K92.2 - Gastrointestinal hemorrhage, unspecified SNOMED: 07078544 (2) Cocaine abuse ICD Codes: F14.10 - Cocaine abuse, uncomplicated SNOMED: 55158890, 450935968 (3) Anemia in chronic kidney disease ICD Codes: N18.9 - Chronic kidney disease, unspecified; D63.1 - Anemia in chronic kidney disease SNOMED: 864347408, 295609412 (4) Chest pain ICD Codes: R07.9 - Chest pain, unspecified SNOMED: 82096008, 139454032 Qualifiers: Qualified Codes: R07.9 - Chest pain, unspecified Status: unchanged Assessment/Plan plan for colonoscopy this week D/W cardiology cardiac diet monitor H&H, transfuse prn ppi fu labs Subjective Allergies: Coded Allergies: No Known Allergies (Unverified , 09/28/16) Subjective Feels OK no abd pain tolerating PO (+) BM Objective Last 24 Hour Vital Signs Date Time Temp Pulse Resp B/P Pulse Ox O2 Delivery O2 Flow Rate FiO2 10/11/16 10:38 132/79 10/11/16 08:35 88 18 Room Air 10/11/16 04:08 98.3 88 21 121/74 96 Room Air 10/11/16 04:00 103 10/11/16 00:16 98.6 97 20 115/74 98 Room Air 10/10/16 20:26 111/79 10/10/16 20:00 97.3 101 31 111/79 97 Room Air 10/10/16 20:00 99 10/10/16 19:31 98 18 Room Air 10/10/16 16:00 96.3 101 23 120/72 100 Room Air 10/10/16 16:00 93 Intake and Output 10/10/16 10/11/16 19:00 07:00 Intake Total 390 ml 200 ml Output Total 100 ml Balance 390 ml 100 ml Intake Oral 390 ml 200 ml Output Urine Total 100 ml # Voids 1 4 # Bowel Movements 1 1 Laboratory Tests 10/11/16 06:30: Prothrombin Time 12.9H, Prothromb Time International Ratio 1.3H, Activated Partial Thromboplast Time 29 Height (Feet): 5 Height (Inches): 5.00 Weight (Pounds): 180 Objective WDWN NCAT Supple CTA RR soft ND NT no edema non focal ONESIMO PERALES Oct 11, 2016 15:55
[2016-10-11 16:00] VITALS: BP 137/83
--- NOTE | 2016-10-11 16:08 | Cardiac Electrophysiology PN ---
Assessment/Plan Status Narrative Moderate left ventricular enlargement. Global left ventricular hypokinesis. Worse septal apper akinetic s. Left ventricular ejection fraction estimated to be 30-35 %. No evidence of left ventricular hypertrophy. No evidence of pericardial fat or effusion. Severe right atrial enlargement by 2D. Mild right atrial enlargement by 2D. Focal aortic valve sclerosis with adequate cusp excursion Mildly thickened mitral valve leaflets with normal excursion. Mitral annulus and aortic root calcification. Pulmonic valve is well visualized. Normal tricuspid valve structure. IVC dilated at 2.7cm no physiologic collapse with respiration.RA pressure of 20mmHg. Assessment/Plan 1. Chest pain after cocaine, due to vasospasm. Ruled out for myocardial infarction. Avoid beta-david in view of cocaine use. Had chest pain before Colonoscopy but Nuclear stress test showed no significant ischemia. 2. Severe Cardiomyopathy with EF 30-35%.Avoid Beta david for cocaine use. On Lisinopril 2.5 bid and dialysis. 3. History of hypertension. On Lisinopril 2.5 bid. 4. End-stage renal disease, on hemodialysis. 5. Substance abuse with cocaine. 6. Anemia due to GI bleed. Stool OB positive. S/P EGD. OK to proceed with Colonoscopy. 7. Diabetes. DW RN Subjective Subjective No chest pain or SOB. Getting prep for colonoscopy tomorrow. Objective Last 24 Hour Vital Signs Date Time Temp Pulse Resp B/P Pulse Ox O2 Delivery O2 Flow Rate FiO2 10/11/16 10:38 132/79 10/11/16 08:35 88 18 Room Air 10/11/16 04:08 98.3 88 21 121/74 96 Room Air 10/11/16 04:00 103 10/11/16 00:16 98.6 97 20 115/74 98 Room Air 10/10/16 20:26 111/79 10/10/16 20:00 97.3 101 31 111/79 97 Room Air 10/10/16 20:00 99 10/10/16 19:31 98 18 Room Air Intake and Output 10/10/16 10/11/16 19:00 07:00 Intake Total 390 ml 200 ml Output Total 100 ml Balance 390 ml 100 ml Intake Oral 390 ml 200 ml Output Urine Total 100 ml # Voids 1 4 # Bowel Movements 1 1 Laboratory Tests Test 10/11/16 06:30 Prothrombin Time 12.9 SEC (9.30-11.50) H Prothromb Time International Ratio 1.3 (0.9-1.1) H Activated Partial Thromboplast Time 29 SEC (23-33) Objective HEAD AND NECK: Showed no jugular venous distention or carotid bruits. LUNGS: Clear. CARDIOVASCULAR: Regular S1 and S2 with no gallop or murmur. ABDOMEN: Soft and nontender. EXTREMITIES: No pitting edema. Dialysis access in the right chest. DILIA GUERRERO Oct 11, 2016 16:08
[2016-10-11 20:00] VITALS: BP 144/75
[2016-10-11] MEDS: Epogen (for ESRD on dialysis) SUBQ SCH (21:18)
[2016-10-12] VITALS (11 sets, daily range): BP systolic 108–137; BP diastolic 66–92
[2016-10-12] MEDS: NovoLOG Insulin Flexpen SUBQ SCH ×5 (06:14→22:05)
[2016-10-12 06:34] LABS: BASOPHILS % (AUTO) 2.1 % (0.0-2.0); EOSINOPHILS % (AUTO) 1.6 % (0.0-3.0); LYMPHOCYTES % (AUTO) 9.2 % (20.0-45.0); MEAN CORPUSCULAR HEMOGLOBIN 29.7 PG (27.0-31.0); MEAN CORPUSCULAR HGB CONC 29.1 G/DL (32.0-36.0); MEAN CORPUSCULAR VOLUME 102 FL (80-99); MEAN PLATELET VOLUME 6.2 FL (6.5-10.1); NEUTROPHILS % (AUTO) 77.1 % (45.0-75.0); PLATELET COUNT 388 K/UL (150-450); RED BLOOD COUNT 2.98 M/UL (4.70-6.10); RED CELL DISTRIBUTION WIDTH 24.3 % (11.6-14.8); WHITE BLOOD COUNT 7.5 K/UL (4.8-10.8)
[2016-10-12 06:53] LABS: ALBUMIN/GLOBULIN RATIO 0.9 (1.0-2.7); CALCIUM 9.5 mg/dL (8.6-10.2); CREATININE 6.3 mg/dL (0.7-1.2); MAGNESIUM 1.8 mg/dL (1.7-2.5); PHOSPHORUS 5.9 mg/dL (2.5-4.8); POTASSIUM 5.2 mEQ/L (3.4-4.9); TOTAL PROTEIN 6.9 g/dL (6.6-8.7)
[2016-10-12 07:10] LABS: BILIRUBIN,DIRECT 0.8 mg/dL (0.1-0.3)
--- NOTE | 2016-10-12 08:18 | General Progress Note ---
Assessment/Plan Assessment/Plan (1) Cocaine abuse (2) Chest pain (3) CHF (4) ESRD on Hemodialysis (5) Lumbar sprain s/p fall We will order Xray of thoracic spine. Pt will be continued on Bengay cream, Lidoderm patch and tramadol. Pt was d/w Dr. Rodriguez and he concurred. Subjective Date patient seen: Oct 12, 2016 Time patient seen: 07:15 - am Allergies: Coded Allergies: No Known Allergies (Unverified , 09/28/16) Subjective REVIEW OF SYSTEMS: Denies rash, fever, chills, sweating, dizziness, drowsiness, blurred vision, sore throat, or change in weight. No nausea, vomiting, diarrhea, or blood urine. No bowel or bladder incontinence. No dysuria. c/o back pain SUBJECTIVE: Patient reports that he started to have mid back pain which is worse with getting from a sitting to standing position. He will be going for colonoscopy as per GI due to GI bleed. Objective Last 24 Hour Vital Signs Date Time Temp Pulse Resp B/P Pulse Ox O2 Delivery O2 Flow Rate FiO2 10/12/16 04:13 97.0 100 20 115/77 96 Room Air 10/12/16 03:34 93 10/12/16 00:25 97.0 119 20 131/86 99 Room Air 10/12/16 00:11 96 10/11/16 21:18 144/75 10/11/16 20:00 104 10/11/16 20:00 97.1 96 19 144/75 95 Room Air 10/11/16 19:47 90 20 Room Air 21 10/11/16 16:18 87 10/11/16 16:00 97.6 94 21 137/83 96 Room Air 10/11/16 13:00 97.5 110 18 138/72 95 Room Air 10/11/16 12:04 112 10/11/16 10:38 132/79 10/11/16 09:00 95.0 114 20 132/79 94 Room Air 10/11/16 08:35 88 18 Room Air Intake and Output 10/11/16 10/12/16 18:59 06:59 Intake Total 600 ml Output Total 110 ml Balance 490 ml Intake Oral 600 ml Output Urine Total 110 ml # Voids 2 3 # Bowel Movements 2 2 Laboratory Tests 10/12/16 05:45: White Blood Count 7.5, Red Blood Count 2.98L, Hemoglobin 8.8L, Hematocrit 30.3L , Mean Corpuscular Volume 102H, Mean Corpuscular Hemoglobin 29.7, Mean Corpuscular Hemoglobin Concent 29.1L, Red Cell Distribution Width 24.3H, Platelet Count 388, Mean Platelet Volume 6.2L, Neutrophils (%) (Auto) 77.1H, Lymphocytes (%) (Auto) 9.2L, Monocytes (%) (Auto) 10.0, Eosinophils (%) (Auto) 1.6, Basophils (%) (Auto) 2.1H, Sodium Level 135, Potassium Level 5.2H, Chloride Level 88L, Carbon Dioxide Level 26, Anion Gap 21H, Blood Urea Nitrogen 53H, Creatinine 6.3H, Estimat Glomerular Filtration Rate 11.0, Glucose Level 84 , Calcium Level 9.5, Phosphorus Level 5.9H, Magnesium Level 1.8, Total Bilirubin 1.6H, Direct Bilirubin 0.8H, Aspartate Amino Transf (AST/SGOT) 17, Alanine Aminotransferase (ALT/SGPT) 7, Alkaline Phosphatase 136H, Total Protein 6.9, Albumin 3.3L, Globulin 3.6, Albumin/Globulin Ratio 0.9L Height (Feet): 5 Height (Inches): 5.00 Weight (Pounds): 180 Objective PHYSICAL EXAMINATION: GENERAL: Alert, awake, and oriented. HEENT: PERRLA. NECK: Range of motion is full in all directions. No tenderness to paracervical muscles. No adenopathy. LUNGS: Decreased breath sounds bilaterally. HEART: S1 and S2, regular. ABDOMEN: Obese. BACK: Range of motion is decreased in flexion and extension with tenderness to paraspinous and trapezius muscles. EXTREMITIES: No cyanosis, no clubbing, edema noted on RUE. NEURO: No changes. ARRON EDWARD Oct 12, 2016 08:18
[2016-10-12] MEDS: Nephrovite tab ORAL SCH (08:30)
[2016-10-12] MEDS: Analgesic Balm 15gm TOPIC SCH ×4 (08:31→21:12)
[2016-10-12] MEDS: Lisinopril 2.5mg tab ORAL SCH ×2 (08:34→21:21)
--- NOTE | 2016-10-12 08:52 | General Progress Note ---
Assessment/Plan Assessment/Plan ASSESSMENT: 1. Anemia secondary to end-stage renal disease. Ferritin is 711. Is on epogen and HD prn 2. Acute drop in hgb, consider GI bleed, has been cleared by cards, pending today colo 3. Thrombocytopenia potentially secondary to underlying infection. hep and hiv - , now better 4. Coagulopathy INR is 1.2, improved 5. Diabetes mellitus. 6. End-stage renal disease on hemodialysis. 7. Cocaine use history. RECOMMENDATIONS: 1. Monitor counts. 2. Transfuse if hemoglobin less than 7.5. 3. Continue epogen 4. Followup GI recs re endoscopy (today colo potentially) 5. Ultrasound of the abdomen reviewed 6. Anemia workup has been reviewed 7. Followup on Nephrology, Pulmonary, and Cardiology recs 8. Transfuse if plts <20k 9. DVT prophylaxis with scds 10. GI prophylaxis ppi 11. Pain control. 12. staff. Thank you, Hugh Lopez MD Subjective Constitutional: Reports: no symptoms HEENT: Reports: no symptoms Cardiovascular: Reports: no symptoms Respiratory: Reports: no symptoms Gastrointestinal/Abdominal: Reports: poor appetite Genitourinary: Reports: no symptoms 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: Reports: no symptoms Endocrine: Reports: no symptoms Hematologic/Lymphatic: Reports: anemia Allergies: Coded Allergies: No Known Allergies (Unverified , 09/28/16) Subjective awake, pain better controlled, no complaints, plan for colo today Objective Last 24 Hour Vital Signs Date Time Temp Pulse Resp B/P Pulse Ox O2 Delivery O2 Flow Rate FiO2 10/12/16 08:34 122/83 10/12/16 04:13 97.0 100 20 115/77 96 Room Air 10/12/16 03:34 93 10/12/16 00:25 97.0 119 20 131/86 99 Room Air 10/12/16 00:11 96 10/11/16 21:18 144/75 10/11/16 20:00 104 10/11/16 20:00 97.1 96 19 144/75 95 Room Air 10/11/16 19:47 90 20 Room Air 21 10/11/16 16:18 87 10/11/16 16:00 97.6 94 21 137/83 96 Room Air 10/11/16 13:00 97.5 110 18 138/72 95 Room Air 10/11/16 12:04 112 10/11/16 10:38 132/79 10/11/16 09:00 95.0 114 20 132/79 94 Room Air Intake and Output 10/11/16 10/12/16 19:00 07:00 Intake Total 600 ml Output Total 110 ml Balance 490 ml Intake Oral 600 ml Output Urine Total 110 ml # Voids 2 3 # Bowel Movements 2 2 Laboratory Tests 10/12/16 05:45: White Blood Count 7.5, Red Blood Count 2.98L, Hemoglobin 8.8L, Hematocrit 30.3L , Mean Corpuscular Volume 102H, Mean Corpuscular Hemoglobin 29.7, Mean Corpuscular Hemoglobin Concent 29.1L, Red Cell Distribution Width 24.3H, Platelet Count 388, Mean Platelet Volume 6.2L, Neutrophils (%) (Auto) 77.1H, Lymphocytes (%) (Auto) 9.2L, Monocytes (%) (Auto) 10.0, Eosinophils (%) (Auto) 1.6, Basophils (%) (Auto) 2.1H, Sodium Level 135, Potassium Level 5.2H, Chloride Level 88L, Carbon Dioxide Level 26, Anion Gap 21H, Blood Urea Nitrogen 53H, Creatinine 6.3H, Estimat Glomerular Filtration Rate 11.0, Glucose Level 84 , Calcium Level 9.5, Phosphorus Level 5.9H, Magnesium Level 1.8, Total Bilirubin 1.6H, Direct Bilirubin 0.8H, Aspartate Amino Transf (AST/SGOT) 17, Alanine Aminotransferase (ALT/SGPT) 7, Alkaline Phosphatase 136H, Total Protein 6.9, Albumin 3.3L, Globulin 3.6, Albumin/Globulin Ratio 0.9L Height (Feet): 5 Height (Inches): 5.00 Weight (Pounds): 180 General Appearance: no apparent distress EENT: TMs normal Neck: supple Cardiovascular: regular rhythm Respiratory/Chest: lungs clear Abdomen: non tender Extremities: non-tender Edema: no edema noted Leg (L), no edema noted Leg (R) Edema: mild edema Neurologic: alert Skin: warm/dry Hugh Lopez Oct 12, 2016 08:52
--- NOTE | 2016-10-12 10:06 | GI Progress Note ---
Assessment/Plan Problems: (1) GIB (gastrointestinal bleeding) ICD Codes: K92.2 - Gastrointestinal hemorrhage, unspecified SNOMED: 07528682 (2) Cocaine abuse ICD Codes: F14.10 - Cocaine abuse, uncomplicated SNOMED: 33288675, 728985228 (3) Anemia in chronic kidney disease ICD Codes: N18.9 - Chronic kidney disease, unspecified; D63.1 - Anemia in chronic kidney disease SNOMED: 868451682, 291077740 (4) Chest pain ICD Codes: R07.9 - Chest pain, unspecified SNOMED: 22034105, 224202794 Qualifiers: Qualified Codes: R07.9 - Chest pain, unspecified Status: stable Status Narrative Discussed with Dr. Bal. Assessment/Plan colonoscopy scheduled for tomorrow stress test negative D/W cardiology cardiac diet monitor H&H, transfuse prn OB stool positive x 3 ppi fu labs Subjective Subjective denies any symptoms Objective Last 24 Hour Vital Signs Date Time Temp Pulse Resp B/P Pulse Ox O2 Delivery O2 Flow Rate FiO2 10/12/16 08:34 122/83 10/12/16 04:13 97.0 100 20 115/77 96 Room Air 10/12/16 03:34 93 10/12/16 00:25 97.0 119 20 131/86 99 Room Air 10/12/16 00:11 96 10/11/16 21:18 144/75 10/11/16 20:00 104 10/11/16 20:00 97.1 96 19 144/75 95 Room Air 10/11/16 19:47 90 20 Room Air 21 10/11/16 16:18 87 10/11/16 16:00 97.6 94 21 137/83 96 Room Air 10/11/16 13:00 97.5 110 18 138/72 95 Room Air 10/11/16 12:04 112 10/11/16 10:38 132/79 Intake and Output 10/11/16 10/12/16 19:00 07:00 Intake Total 600 ml Output Total 110 ml Balance 490 ml Intake Oral 600 ml Output Urine Total 110 ml # Voids 2 3 # Bowel Movements 2 2 Laboratory Tests Test 10/12/16 05:45 White Blood Count 7.5 K/UL (4.8-10.8) Red Blood Count 2.98 M/UL (4.70-6.10) L Hemoglobin 8.8 G/DL (14.2-18.0) L Hematocrit 30.3 % (42.0-52.0) L Mean Corpuscular Volume 102 FL (80-99) H Mean Corpuscular Hemoglobin 29.7 PG (27.0-31.0) Mean Corpuscular Hemoglobin Concent 29.1 G/DL (32.0-36.0) L Red Cell Distribution Width 24.3 % (11.6-14.8) H Platelet Count 388 K/UL (150-450) Mean Platelet Volume 6.2 FL (6.5-10.1) L Neutrophils (%) (Auto) 77.1 % (45.0-75.0) H Lymphocytes (%) (Auto) 9.2 % (20.0-45.0) L Monocytes (%) (Auto) 10.0 % (1.0-10.0) Eosinophils (%) (Auto) 1.6 % (0.0-3.0) Basophils (%) (Auto) 2.1 % (0.0-2.0) H Sodium Level 135 mEQ/L (135-145) Potassium Level 5.2 mEQ/L (3.4-4.9) H Chloride Level 88 mEQ/L (98-107) L Carbon Dioxide Level 26 mEQ/L (20-30) Anion Gap 21 (5-15) H Blood Urea Nitrogen 53 mg/dL (7-23) H Creatinine 6.3 mg/dL (0.7-1.2) H Estimat Glomerular Filtration Rate 11.0 mL/min (>60) Glucose Level 84 mg/dL (74-106) Calcium Level 9.5 mg/dL (8.6-10.2) Phosphorus Level 5.9 mg/dL (2.5-4.8) H Magnesium Level 1.8 mg/dL (1.7-2.5) Total Bilirubin 1.6 mg/dL (0.0-1.2) H Direct Bilirubin 0.8 mg/dL (0.1-0.3) H Aspartate Amino Transf (AST/SGOT) 17 U/L (5-40) Alanine Aminotransferase (ALT/SGPT) 7 U/L (3-41) Alkaline Phosphatase 136 U/L (40-129) H Total Protein 6.9 g/dL (6.6-8.7) Albumin 3.3 g/dL (3.5-5.2) L Globulin 3.6 g/dL Albumin/Globulin Ratio 0.9 (1.0-2.7) L Height (Feet): 5 Height (Inches): 5.00 Weight (Pounds): 180 General Appearance: no apparent distress, alert, overweight Cardiovascular: normal rate Respiratory/Chest: normal breath sounds, no respiratory distress Abdominal Exam: normal bowel sounds, non tender, soft Sole Lucio N.PTanvir Oct 12, 2016 10:06
[2016-10-12] MEDS ORDERED: Heparin 2000 units/Ns 1000ml INJ PRN (10:15)
[2016-10-12] MEDS ORDERED: Lidocaine 1% Plain 30 ml INJ PRN (10:15)
[2016-10-12] MEDS ORDERED: Sodium Bicarbonate 8.4% 50ml Inj IV PRN (10:15)
[2016-10-12] MEDS ORDERED: Heparin Sod 1000 units/ml 10ml ONE (12:42)
--- NOTE | 2016-10-12 13:39 | Diagnostic Imaging Report ---
APPROVED REPORT CPT Code: 49778 Present Symptoms Upper Extremity Pain: Right Upper Extremity Edema: Right RIGHT UPPER EXTREMITY: Venous imaging reveals patency of the internal jugular, subclavian, axillary and brachial veins. The cephalic vein was also patent. Doppler indicates normal spontaneous flow within these venous segments. The basilic vein is thrombosed.
--- NOTE | 2016-10-12 14:52 | Diagnostic Imaging Report ---
Indication: Patient requires hemodialysis. Findings: After the indications, procedure, risks, complications, and alternatives of the procedure were explained, written informed consent was obtained. The neck was prepped with alcohol. All elements of maximal sterile barrier technique were followed including usage of a cap, mask, sterile gown, sterile gloves, hand hygiene and a large sterile sheet. 1% lidocaine was used to anesthetize the skin. Sonographic evaluation of the neck was performed demonstrating a patent and compressible jugular vein. Access was obtained under real-time ultrasound guidance using an 18 gauge needle and a digital image was saved in archive. An 035 wire was then advanced into the vein. Needle exchanged or a dilator. A temporary hemodialysis catheter was then advanced over the wire such that the tip resides in the SVC. Wire was removed. Catheter was secured to the skin using 2-0 Prolene suture. Both ports aspirate and flush easily. Fluoroscopic imaging was utilized to negotiate the 035 wire into the IVC. Final position of the hemodialysis catheter was confirmed by fluoroscopy. Total fluoroscopic time 1.3 minutes. The catheter is cleared for use. Impression: Successful placement of left jugular hemodialysis catheter.
--- NOTE | 2016-10-12 14:56 | General Progress Note ---
Assessment/Plan Problem List: (1) Cocaine abuse ICD Codes: F14.10 - Cocaine abuse, uncomplicated SNOMED: 61244584, 453081412 (2) Chest pain ICD Codes: R07.9 - Chest pain, unspecified SNOMED: 44679984, 523175067 Qualifiers: Qualified Codes: R07.9 - Chest pain, unspecified Status: progressing Assessment/Plan esrd on hd chest pain gi bleed reviewed chart and labs check h/h Subjective ROS Limited/Unobtainable: Yes Constitutional: Reports: no symptoms Allergies: Coded Allergies: No Known Allergies (Unverified , 09/28/16) Objective Last 24 Hour Vital Signs Date Time Temp Pulse Resp B/P Pulse Ox O2 Delivery O2 Flow Rate FiO2 10/12/16 12:28 98 28 2.0 10/12/16 12:00 97.9 98 18 108/69 97 Room Air 10/12/16 08:34 122/83 10/12/16 08:00 97.0 104 18 122/83 Room Air 10/12/16 04:13 97.0 100 20 115/77 96 Room Air 10/12/16 03:34 93 10/12/16 00:25 97.0 119 20 131/86 99 Room Air 10/12/16 00:11 96 10/11/16 21:18 144/75 10/11/16 20:00 104 10/11/16 20:00 97.1 96 19 144/75 95 Room Air 10/11/16 19:47 90 20 Room Air 21 10/11/16 16:18 87 10/11/16 16:00 97.6 94 21 137/83 96 Room Air Intake and Output 10/11/16 10/12/16 18:59 06:59 Intake Total 600 ml Output Total 110 ml Balance 490 ml Intake Oral 600 ml Output Urine Total 110 ml # Voids 2 3 # Bowel Movements 2 2 Laboratory Tests 10/12/16 05:45: White Blood Count 7.5, Red Blood Count 2.98L, Hemoglobin 8.8L, Hematocrit 30.3L , Mean Corpuscular Volume 102H, Mean Corpuscular Hemoglobin 29.7, Mean Corpuscular Hemoglobin Concent 29.1L, Red Cell Distribution Width 24.3H, Platelet Count 388, Mean Platelet Volume 6.2L, Neutrophils (%) (Auto) 77.1H, Lymphocytes (%) (Auto) 9.2L, Monocytes (%) (Auto) 10.0, Eosinophils (%) (Auto) 1.6, Basophils (%) (Auto) 2.1H, Sodium Level 135, Potassium Level 5.2H, Chloride Level 88L, Carbon Dioxide Level 26, Anion Gap 21H, Blood Urea Nitrogen 53H, Creatinine 6.3H, Estimat Glomerular Filtration Rate 11.0, Glucose Level 84 , Calcium Level 9.5, Phosphorus Level 5.9H, Magnesium Level 1.8, Total Bilirubin 1.6H, Direct Bilirubin 0.8H, Aspartate Amino Transf (AST/SGOT) 17, Alanine Aminotransferase (ALT/SGPT) 7, Alkaline Phosphatase 136H, Total Protein 6.9, Albumin 3.3L, Globulin 3.6, Albumin/Globulin Ratio 0.9L Height (Feet): 5 Height (Inches): 5.00 Weight (Pounds): 180 General Appearance: confused EENT: PERRL/EOMI Cardiovascular: normal rate Respiratory/Chest: lungs clear Liu Elizondo MD Oct 12, 2016 14:56
--- NOTE | 2016-10-12 15:28 | General Progress Note ---
Assessment/Plan Status: stable Assessment/Plan Status: (1) ESRD (end stage renal disease) on dialysis (2) Chest pain (3) Cocaine abuse (4) Anemia in chronic kidney disease (5) ? DVT right UE (6) Cardiomyopathy: Global left ventricular hypokinesis. Worse septal apper akinetic s. Left ventricular ejection fraction estimated to be 30-35 %. Plan: Next HD Tuesday10/11/16- was held as the permacath is out ! had dialysis access placed today and is due for dialysis today- On marcie inhibitors- per consultants ? DC planning Subjective ROS Limited/Unobtainable: No Constitutional: Reports: malaise, weakness Allergies: Coded Allergies: No Known Allergies (Unverified , 09/28/16) Objective Last 24 Hour Vital Signs Date Time Temp Pulse Resp B/P Pulse Ox O2 Delivery O2 Flow Rate FiO2 10/12/16 12:28 98 28 2.0 10/12/16 12:00 97.9 98 18 108/69 97 Room Air 10/12/16 08:34 122/83 10/12/16 08:00 97.0 104 18 122/83 Room Air 10/12/16 04:13 97.0 100 20 115/77 96 Room Air 10/12/16 03:34 93 10/12/16 00:25 97.0 119 20 131/86 99 Room Air 10/12/16 00:11 96 10/11/16 21:18 144/75 10/11/16 20:00 104 10/11/16 20:00 97.1 96 19 144/75 95 Room Air 10/11/16 19:47 90 20 Room Air 21 10/11/16 16:18 87 10/11/16 16:00 97.6 94 21 137/83 96 Room Air Intake and Output 10/11/16 10/12/16 18:59 06:59 Intake Total 600 ml Output Total 110 ml Balance 490 ml Intake Oral 600 ml Output Urine Total 110 ml # Voids 2 3 # Bowel Movements 2 2 Laboratory Tests 10/12/16 05:45: White Blood Count 7.5, Red Blood Count 2.98L, Hemoglobin 8.8L, Hematocrit 30.3L , Mean Corpuscular Volume 102H, Mean Corpuscular Hemoglobin 29.7, Mean Corpuscular Hemoglobin Concent 29.1L, Red Cell Distribution Width 24.3H, Platelet Count 388, Mean Platelet Volume 6.2L, Neutrophils (%) (Auto) 77.1H, Lymphocytes (%) (Auto) 9.2L, Monocytes (%) (Auto) 10.0, Eosinophils (%) (Auto) 1.6, Basophils (%) (Auto) 2.1H, Sodium Level 135, Potassium Level 5.2H, Chloride Level 88L, Carbon Dioxide Level 26, Anion Gap 21H, Blood Urea Nitrogen 53H, Creatinine 6.3H, Estimat Glomerular Filtration Rate 11.0, Glucose Level 84 , Calcium Level 9.5, Phosphorus Level 5.9H, Magnesium Level 1.8, Total Bilirubin 1.6H, Direct Bilirubin 0.8H, Aspartate Amino Transf (AST/SGOT) 17, Alanine Aminotransferase (ALT/SGPT) 7, Alkaline Phosphatase 136H, Total Protein 6.9, Albumin 3.3L, Globulin 3.6, Albumin/Globulin Ratio 0.9L Height (Feet): 5 Height (Inches): 5.00 Weight (Pounds): 180 General Appearance: no apparent distress Neck: other - left Jugular dialysis access- Objective no change in PE KALEY RIOS Oct 12, 2016 15:28
--- NOTE | 2016-10-12 15:39 | Pulmonology Progress Note ---
Assessment/Plan Problems: (1) Chest pain Assessment & Plan: stress study was negative (2) Acute respiratory failure Assessment & Plan: improved (3) Anemia in chronic kidney disease (4) ESRD (end stage renal disease) on dialysis (5) Fluid overload (6) Cocaine abuse (7) Back pain Assessment/Plan Hd access fell off, Needs a new access cardiac evaluation appreciated HD as needed med/surg if ok with Cardio Subjective Constitutional: Reports: anorexia, fatigue Allergies: Coded Allergies: No Known Allergies (Unverified , 09/28/16) Objective Last 24 Hour Vital Signs Date Time Temp Pulse Resp B/P Pulse Ox O2 Delivery O2 Flow Rate FiO2 10/12/16 12:40 94 28 129/82 100 Nasal Cannula 2.0 10/12/16 12:35 94 30 125/90 99 Nasal Cannula 2.0 10/12/16 12:28 98 28 133/92 100 Nasal Cannula 2.0 10/12/16 12:28 98 28 2.0 10/12/16 12:00 97.9 98 18 108/69 97 Room Air 10/12/16 08:34 122/83 10/12/16 08:00 97.0 104 18 122/83 Room Air 10/12/16 04:13 97.0 100 20 115/77 96 Room Air 10/12/16 03:34 93 10/12/16 00:25 97.0 119 20 131/86 99 Room Air 10/12/16 00:11 96 10/11/16 21:18 144/75 10/11/16 20:00 104 10/11/16 20:00 97.1 96 19 144/75 95 Room Air 10/11/16 19:47 90 20 Room Air 21 10/11/16 16:18 87 10/11/16 16:00 97.6 94 21 137/83 96 Room Air Intake and Output 10/11/16 10/12/16 19:00 07:00 Intake Total 600 ml Output Total 110 ml Balance 490 ml Intake Oral 600 ml Output Urine Total 110 ml # Voids 2 3 # Bowel Movements 2 2 General Appearance: no acute distress HEENT: normocephalic, atraumatic, anicteric, PERRL Respiratory/Chest: chest wall non-tender, lungs clear, normal breath sounds Cardiovascular: normal peripheral pulses, normal rate, regular rhythm Abdomen: normal bowel sounds, soft, non tender, no organomegaly Genitourinary: normal external genitalia Extremities: no cyanosis Skin: no rash, no lesions 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: 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 grossly normal, no motor/sensory deficits Laboratory Tests 10/12/16 05:45: White Blood Count 7.5, Red Blood Count 2.98L, Hemoglobin 8.8L, Hematocrit 30.3L , Mean Corpuscular Volume 102H, Mean Corpuscular Hemoglobin 29.7, Mean Corpuscular Hemoglobin Concent 29.1L, Red Cell Distribution Width 24.3H, Platelet Count 388, Mean Platelet Volume 6.2L, Neutrophils (%) (Auto) 77.1H, Lymphocytes (%) (Auto) 9.2L, Monocytes (%) (Auto) 10.0, Eosinophils (%) (Auto) 1.6, Basophils (%) (Auto) 2.1H, Sodium Level 135, Potassium Level 5.2H, Chloride Level 88L, Carbon Dioxide Level 26, Anion Gap 21H, Blood Urea Nitrogen 53H, Creatinine 6.3H, Estimat Glomerular Filtration Rate 11.0, Glucose Level 84 , Calcium Level 9.5, Phosphorus Level 5.9H, Magnesium Level 1.8, Total Bilirubin 1.6H, Direct Bilirubin 0.8H, Aspartate Amino Transf (AST/SGOT) 17, Alanine Aminotransferase (ALT/SGPT) 7, Alkaline Phosphatase 136H, Total Protein 6.9, Albumin 3.3L, Globulin 3.6, Albumin/Globulin Ratio 0.9L Current Medications Medications (Trade) Dose Ordered Sig/Lillian Route PRN Reason Start Time Stop Time Status Last Admin Dose Admin Acetaminophen (Tylenol) 650 mg Q4H PRN ORAL Fever 10/06/16 15:30 11/05/16 15:29 10/10/16 06:37 Bisacodyl (Dulcolax) 10 mg ONCE ONCE ORAL 10/12/16 16:00 10/12/16 16:01 Dextrose (Dextrose 50%) STAT PRN IV Hypoglycemia 10/06/16 19:30 11/05/16 19:29 Epoetin Joseph (Procrit (for ESRD on dialysis)) 5,000 units MON-WED-TUE SUBQ 10/06/16 21:00 11/05/16 20:59 10/11/16 21:18 Heparin Sodium/ Sodium Chloride (Heparin 2000 units/Ns 1000ml premix) 2,000 unit ONCE ONCE INJ 10/12/16 10:15 10/12/16 10:16 UNV Insulin Aspart (NovoLOG) BEFORE MEALS AND HS SUBQ 10/06/16 16:30 11/05/16 16:29 Lidocaine (Lidoderm 5% PATCH) 1 patch DAILY TDERMAL 10/07/16 09:00 11/06/16 08:59 10/12/16 08:31 Lidocaine HCl (Xylocaine 1% 30ml) 30 ml ONCE ONCE INJ 10/12/16 10:15 10/12/16 10:16 UNV Lisinopril (Zestril) 2.5 mg Q12HR ORAL 10/06/16 21:00 11/05/16 20:59 10/12/16 08:34 Menthol/Methyl Salicylate (Bengay) 1 applic FOUR TIMES A DAY TOPIC 10/10/16 13:00 11/09/16 12:59 10/12/16 08:31 Ondansetron HCl (Zofran) 4 mg Q6H PRN IVP Nausea & Vomiting 10/06/16 13:30 11/05/16 13:29 Pantoprazole (Protonix) 40 mg ACBREAKFAST ORAL 10/09/16 06:30 11/06/16 08:59 10/12/16 06:12 Polyethylene Glycol (Miralax) 17 gm DAILYPRN PRN ORAL Constipation 10/06/16 19:30 11/05/16 19:29 Polyethylene Glycol (Miralax) 238 gm ONCE ONCE ORAL 10/12/16 16:00 10/12/16 16:01 Sodium Bicarbonate (Sodium Bicarbonate) 50 ml ONCE ONCE IV 10/12/16 10:15 10/12/16 10:16 UNV Temazepam (Restoril) 15 mg HSPRN PRN ORAL Insomnia 10/06/16 19:30 10/13/16 19:29 Tramadol HCl (Ultram) 50 mg Q4H PRN ORAL moderate pain 10/06/16 16:15 10/13/16 16:14 10/10/16 20:26 Vitamin B Complex/ Vit C/Folic Acid (Nephrovite) 1 tab DAILY ORAL 10/07/16 09:00 11/06/16 08:59 10/12/16 08:30 CARLOS ALBERTO HERMAN Oct 12, 2016 15:39
[2016-10-12] MEDS ORDERED: Polyethylene Glycol 238gm bottle ORAL ONE (16:00)
[2016-10-12] MEDS ORDERED: Bisacodyl EC 5mg tab ORAL ONE (16:00)
--- NOTE | 2016-10-12 16:29 | Cardiac Electrophysiology PN ---
Assessment/Plan Status Narrative Moderate left ventricular enlargement. Global left ventricular hypokinesis. Worse septal apper akinetic s. Left ventricular ejection fraction estimated to be 30-35 %. No evidence of left ventricular hypertrophy. No evidence of pericardial fat or effusion. Severe right atrial enlargement by 2D. Mild right atrial enlargement by 2D. Focal aortic valve sclerosis with adequate cusp excursion Mildly thickened mitral valve leaflets with normal excursion. Mitral annulus and aortic root calcification. Pulmonic valve is well visualized. Normal tricuspid valve structure. IVC dilated at 2.7cm no physiologic collapse with respiration.RA pressure of 20mmHg. Assessment/Plan 1. Chest pain after cocaine, due to vasospasm. Ruled out for myocardial infarction. Avoid beta-david in view of cocaine use. Had chest pain before Colonoscopy but Nuclear stress test showed no significant ischemia. 2. Severe Cardiomyopathy with EF 30-35%. Avoid Beta david for cocaine use. On Lisinopril 2.5 bid and dialysis. 3. History of hypertension. On Lisinopril 2.5 bid. 4. End-stage renal disease, on hemodialysis. 5. Substance abuse with cocaine. 6. Anemia due to GI bleed. Stool OB positive. S/P EGD.Refused Colonoscopy. 7. Diabetes. ZOHREH RN DC tele. Subjective Subjective No chest pain or SOB. In SR with PVCs.Getting dialysis now.Complains of back pain. Objective Last 24 Hour Vital Signs Date Time Temp Pulse Resp B/P Pulse Ox O2 Delivery O2 Flow Rate FiO2 10/12/16 12:40 94 28 129/82 100 Nasal Cannula 2.0 10/12/16 12:35 94 30 125/90 99 Nasal Cannula 2.0 10/12/16 12:28 98 28 133/92 100 Nasal Cannula 2.0 10/12/16 12:28 98 28 2.0 10/12/16 12:00 97.9 98 18 108/69 97 Room Air 10/12/16 09:44 93 10/12/16 08:34 122/83 10/12/16 08:00 97.0 104 18 122/83 Room Air 10/12/16 04:13 97.0 100 20 115/77 96 Room Air 10/12/16 03:34 93 10/12/16 00:25 97.0 119 20 131/86 99 Room Air 10/12/16 00:11 96 10/11/16 21:18 144/75 12/17 20:00 104 10/11/16 20:00 97.1 96 19 144/75 95 Room Air 10/11/16 19:47 90 20 Room Air 21 Intake and Output 10/11/16 10/12/16 19:00 07:00 Intake Total 600 ml Output Total 110 ml Balance 490 ml Intake Oral 600 ml Output Urine Total 110 ml # Voids 2 3 # Bowel Movements 2 2 Laboratory Tests Test 10/12/16 05:45 White Blood Count 7.5 K/UL (4.8-10.8) Red Blood Count 2.98 M/UL (4.70-6.10) L Hemoglobin 8.8 G/DL (14.2-18.0) L Hematocrit 30.3 % (42.0-52.0) L Mean Corpuscular Volume 102 FL (80-99) H Mean Corpuscular Hemoglobin 29.7 PG (27.0-31.0) Mean Corpuscular Hemoglobin Concent 29.1 G/DL (32.0-36.0) L Red Cell Distribution Width 24.3 % (11.6-14.8) H Platelet Count 388 K/UL (150-450) Mean Platelet Volume 6.2 FL (6.5-10.1) L Neutrophils (%) (Auto) 77.1 % (45.0-75.0) H Lymphocytes (%) (Auto) 9.2 % (20.0-45.0) L Monocytes (%) (Auto) 10.0 % (1.0-10.0) Eosinophils (%) (Auto) 1.6 % (0.0-3.0) Basophils (%) (Auto) 2.1 % (0.0-2.0) H Sodium Level 135 mEQ/L (135-145) Potassium Level 5.2 mEQ/L (3.4-4.9) H Chloride Level 88 mEQ/L (98-107) L Carbon Dioxide Level 26 mEQ/L (20-30) Anion Gap 21 (5-15) H Blood Urea Nitrogen 53 mg/dL (7-23) H Creatinine 6.3 mg/dL (0.7-1.2) H Estimat Glomerular Filtration Rate 11.0 mL/min (>60) Glucose Level 84 mg/dL (74-106) Calcium Level 9.5 mg/dL (8.6-10.2) Phosphorus Level 5.9 mg/dL (2.5-4.8) H Magnesium Level 1.8 mg/dL (1.7-2.5) Total Bilirubin 1.6 mg/dL (0.0-1.2) H Direct Bilirubin 0.8 mg/dL (0.1-0.3) H Aspartate Amino Transf (AST/SGOT) 17 U/L (5-40) Alanine Aminotransferase (ALT/SGPT) 7 U/L (3-41) Alkaline Phosphatase 136 U/L (40-129) H Total Protein 6.9 g/dL (6.6-8.7) Albumin 3.3 g/dL (3.5-5.2) L Globulin 3.6 g/dL Albumin/Globulin Ratio 0.9 (1.0-2.7) L Objective HEAD AND NECK: Showed no jugular venous distention or carotid bruits. LUNGS: Clear. CARDIOVASCULAR: Regular S1 and S2 with no gallop or murmur. ABDOMEN: Soft and nontender. EXTREMITIES: No pitting edema. Dialysis access in the right chest. DILIA GUERRERO Oct 12, 2016 16:29
--- NOTE | 2016-10-12 17:20 | Infectious Diseases Prog Note ---
Assessment/Plan Problems: (1) Colonization with VRE (vancomycin-resistant enterococcus) Assessment & Plan: keep in contact isolation (2) ESRD (end stage renal disease) on dialysis Assessment & Plan: continue HD as per renal. (3) Cocaine abuse Assessment & Plan: recommend counseling and rehab (4) Chest pain Assessment & Plan: had stress test , cardiology is following (5) Anemia in chronic kidney disease Assessment & Plan: stable, monitor H/H transfuse as needed Subjective Constitutional: Reports: no symptoms HEENT: Reports: no symptoms Respiratory: Reports: no symptoms Breasts: Reports: no symptoms Cardiovascular: Reports: no symptoms Gastrointestinal/Abdominal: Reports: no symptoms Genitourinary: Reports: no symptoms Neurologic: Reports: no symptoms Psychiatric: Reports: no symptoms Skin: Reports: no symptoms Endocrine: Reports: no symptoms Allergies: Coded Allergies: No Known Allergies (Unverified , 09/28/16) Subjective he was doing well today, denied any symptoms. Objective Vital Signs Last 24 Hour Vital Signs Date Time Temp Pulse Resp B/P Pulse Ox O2 Delivery O2 Flow Rate FiO2 10/12/16 16:30 Room Air 2.0 21 10/12/16 16:00 97.5 113 22 137/78 97 Room Air 10/12/16 13:12 93 10/12/16 12:40 94 28 129/82 100 Nasal Cannula 2.0 10/12/16 12:35 94 30 125/90 99 Nasal Cannula 2.0 10/12/16 12:28 98 28 133/92 100 Nasal Cannula 2.0 10/12/16 12:28 98 28 2.0 10/12/16 12:00 97.9 98 18 108/69 97 Room Air 10/12/16 09:44 93 10/12/16 08:34 122/83 10/12/16 08:00 97.0 104 18 122/83 Room Air 10/12/16 04:13 97.0 100 20 115/77 96 Room Air 10/12/16 03:34 93 10/12/16 00:25 97.0 119 20 131/86 99 Room Air 10/12/16 00:11 96 10/11/16 21:18 144/75 10/11/16 20:00 104 10/11/16 20:00 97.1 96 19 144/75 95 Room Air 10/11/16 19:47 90 20 Room Air 21 Height (Feet): 5 Height (Inches): 5.00 Weight (Pounds): 180 General Appearance: WD/WN, no acute distress HEENT: normocephalic, atraumatic, anicteric, mucous membranes moist Respiratory/Chest: chest wall non-tender, lungs clear, normal breath sounds, no respiratory distress, no accessory muscle use Cardiovascular: normal peripheral pulses, normal rate, regular rhythm, no gallop/murmur Abdomen: normal bowel sounds, soft, non tender, no organomegaly, non distended , no mass Extremities: no cyanosis, no clubbing Skin: no rash, no lesions, no ulcers Laboratory Tests Test 10/12/16 05:45 White Blood Count 7.5 K/UL (4.8-10.8) Red Blood Count 2.98 M/UL (4.70-6.10) L Hemoglobin 8.8 G/DL (14.2-18.0) L Hematocrit 30.3 % (42.0-52.0) L Mean Corpuscular Volume 102 FL (80-99) H Mean Corpuscular Hemoglobin 29.7 PG (27.0-31.0) Mean Corpuscular Hemoglobin Concent 29.1 G/DL (32.0-36.0) L Red Cell Distribution Width 24.3 % (11.6-14.8) H Platelet Count 388 K/UL (150-450) Mean Platelet Volume 6.2 FL (6.5-10.1) L Neutrophils (%) (Auto) 77.1 % (45.0-75.0) H Lymphocytes (%) (Auto) 9.2 % (20.0-45.0) L Monocytes (%) (Auto) 10.0 % (1.0-10.0) Eosinophils (%) (Auto) 1.6 % (0.0-3.0) Basophils (%) (Auto) 2.1 % (0.0-2.0) H Sodium Level 135 mEQ/L (135-145) Potassium Level 5.2 mEQ/L (3.4-4.9) H Chloride Level 88 mEQ/L (98-107) L Carbon Dioxide Level 26 mEQ/L (20-30) Anion Gap 21 (5-15) H Blood Urea Nitrogen 53 mg/dL (7-23) H Creatinine 6.3 mg/dL (0.7-1.2) H Estimat Glomerular Filtration Rate 11.0 mL/min (>60) Glucose Level 84 mg/dL (74-106) Calcium Level 9.5 mg/dL (8.6-10.2) Phosphorus Level 5.9 mg/dL (2.5-4.8) H Magnesium Level 1.8 mg/dL (1.7-2.5) Total Bilirubin 1.6 mg/dL (0.0-1.2) H Direct Bilirubin 0.8 mg/dL (0.1-0.3) H Aspartate Amino Transf (AST/SGOT) 17 U/L (5-40) Alanine Aminotransferase (ALT/SGPT) 7 U/L (3-41) Alkaline Phosphatase 136 U/L (40-129) H Total Protein 6.9 g/dL (6.6-8.7) Albumin 3.3 g/dL (3.5-5.2) L Globulin 3.6 g/dL Albumin/Globulin Ratio 0.9 (1.0-2.7) L Current Medications Medications (Trade) Dose Ordered Sig/Lillian Route PRN Reason Start Time Stop Time Status Last Admin Dose Admin Acetaminophen (Tylenol) 650 mg Q4H PRN ORAL Fever 10/06/16 15:30 11/05/16 15:29 10/10/16 06:37 Dextrose (Dextrose 50%) STAT PRN IV Hypoglycemia 10/06/16 19:30 11/05/16 19:29 Epoetin Joseph (Procrit (for ESRD on dialysis)) 5,000 units TUE-TUE-TUE SUBQ 10/06/16 21:00 11/05/16 20:59 10/11/16 21:18 Heparin Sodium/ Sodium Chloride (Heparin 2000 units/Ns 1000ml premix) 2,000 unit ONCE ONCE INJ 10/12/16 10:15 10/12/16 10:16 UNV Insulin Aspart (NovoLOG) BEFORE MEALS AND HS SUBQ 10/06/16 16:30 11/05/16 16:29 Lidocaine (Lidoderm 5% PATCH) 1 patch DAILY TDERMAL 10/07/16 09:00 11/06/16 08:59 10/12/16 08:31 Lidocaine HCl (Xylocaine 1% 30ml) 30 ml ONCE ONCE INJ 10/12/16 10:15 1/3/17 10:16 UNV Lisinopril (Zestril) 2.5 mg Q12HR ORAL 10/06/16 21:00 11/05/16 20:59 10/12/16 08:34 Menthol/Methyl Salicylate (Bengay) 1 applic FOUR TIMES A DAY TOPIC 10/10/16 13:00 11/09/16 12:59 10/12/16 08:31 Ondansetron HCl (Zofran) 4 mg Q6H PRN IVP Nausea & Vomiting 10/06/16 13:30 11/05/16 13:29 Pantoprazole (Protonix) 40 mg ACBREAKFAST ORAL 10/09/16 06:30 11/06/16 08:59 10/12/16 06:12 Polyethylene Glycol (Miralax) 17 gm DAILYPRN PRN ORAL Constipation 10/06/16 19:30 11/05/16 19:29 Sodium Bicarbonate (Sodium Bicarbonate) 50 ml ONCE ONCE IV 10/12/16 10:15 10/12/16 10:16 UNV Temazepam (Restoril) 15 mg HSPRN PRN ORAL Insomnia 10/06/16 19:30 10/13/16 19:29 Tramadol HCl (Ultram) 50 mg Q4H PRN ORAL moderate pain 10/06/16 16:15 10/13/16 16:14 10/10/16 20:26 Vitamin B Complex/ Vit C/Folic Acid (Nephrovite) 1 tab DAILY ORAL 10/07/16 09:00 11/06/16 08:59 10/12/16 08:30 Ivania Bhardwaj M.D. Oct 12, 2016 17:20
[2016-10-12] MEDS: Miralax 17gm pkt ORAL PRN ×3 (18:48→21:13)
[2016-10-13] VITALS (10 sets, daily range): BP systolic 121–139; BP diastolic 56–90
--- NOTE | 2016-10-13 05:52 | General Progress Note ---
Assessment/Plan Assessment/Plan ASSESSMENT: 1. Anemia secondary to end-stage renal disease. Ferritin is 711. Is on epogen and HD prn 2. Acute drop in hgb, consider GI bleed, has been cleared by cards, pending colo 3. Thrombocytopenia potentially secondary to underlying infection. hep and hiv - , now improved 4. Coagulopathy INR is 1.2, improved 5. Diabetes mellitus. 6. End-stage renal disease on hemodialysis. 7. Cocaine use history. RECOMMENDATIONS: 1. Monitor counts. 2. Transfuse if hemoglobin less than 7.5. 3. Continue epogen 4. Followup GI recs re endoscopy (today colo potentially) 5. Ultrasound of the abdomen reviewed 6. Anemia workup has reviewed 7. Followup on Nephrology, Pulmonary, GI, Cardiology recs 8. Transfuse if plts <20k 9. DVT prophylaxis with scds 10. GI prophylaxis ppi 11. Pain control. 12. staff. Thank you, Hugh Lopez MD Subjective Constitutional: Reports: no symptoms HEENT: Reports: mouth pain Cardiovascular: Reports: no symptoms Respiratory: Reports: no symptoms Gastrointestinal/Abdominal: Reports: poor appetite Genitourinary: Reports: no symptoms 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: Reports: no symptoms Endocrine: Reports: no symptoms Hematologic/Lymphatic: Reports: anemia Allergies: Coded Allergies: No Known Allergies (Unverified , 09/28/16) Subjective awake, pain better controlled, no complaints, plan for colo today Objective Last 24 Hour Vital Signs Date Time Temp Pulse Resp B/P Pulse Ox O2 Delivery O2 Flow Rate FiO2 10/13/16 04:01 96.9 101 20 124/67 Room Air 10/13/16 00:00 97.0 94 20 121/68 94 Room Air 10/12/16 21:21 114/80 10/12/16 21:18 96.4 107 20 114/80 92 Room Air 10/12/16 20:00 97.5 103 19 120/70 96 Room Air 10/12/16 19:05 Room Air 2.0 21 10/12/16 18:59 97.5 75 19 119/66 Room Air 10/12/16 16:30 Room Air 2.0 21 10/12/16 16:00 97.5 113 22 137/78 97 Room Air 10/12/16 16:00 94 10/12/16 13:12 93 10/12/16 12:40 94 28 129/82 100 Nasal Cannula 2.0 10/12/16 12:35 94 30 125/90 99 Nasal Cannula 2.0 10/12/16 12:28 98 28 133/92 100 Nasal Cannula 2.0 10/12/16 12:28 98 28 2.0 10/12/16 12:00 97.9 98 18 108/69 97 Room Air 10/12/16 09:44 93 10/12/16 08:34 122/83 10/12/16 08:00 97.0 104 18 122/83 Room Air Intake and Output 10/12/16 10/13/16 19:00 07:00 Intake Total 450 ml Output Total 2100 ml Balance 450 ml -2100 ml Intake Oral 450 ml Hemodialysis UF 2100 ml # Voids 1 1 # Bowel Movements 1 7 Height (Feet): 5 Height (Inches): 5.00 Weight (Pounds): 180 General Appearance: no apparent distress EENT: TMs normal Neck: supple Cardiovascular: regular rhythm Respiratory/Chest: lungs clear Abdomen: soft Extremities: non-tender Edema: mild edema Neurologic: alert Skin: warm/dry Hugh Lopez Oct 13, 2016 05:52
[2016-10-13 06:18] LABS: BASOPHILS % (AUTO) 1.6 % (0.0-2.0); EOSINOPHILS % (AUTO) 2.1 % (0.0-3.0); LYMPHOCYTES % (AUTO) 9.4 % (20.0-45.0); MEAN CORPUSCULAR HEMOGLOBIN 30.7 PG (27.0-31.0); MEAN CORPUSCULAR HGB CONC 29.7 G/DL (32.0-36.0); MEAN CORPUSCULAR VOLUME 104 FL (80-99); MEAN PLATELET VOLUME 6.7 FL (6.5-10.1); MONOCYTES % (AUTO) 14.5 % (1.0-10.0); NEUTROPHILS % (AUTO) 72.4 % (45.0-75.0); PLATELET COUNT 350 K/UL (150-450); RED BLOOD COUNT 2.94 M/UL (4.70-6.10); RED CELL DISTRIBUTION WIDTH 24.3 % (11.6-14.8); WHITE BLOOD COUNT 8.9 K/UL (4.8-10.8)
--- NOTE | 2016-10-13 08:07 | General Progress Note ---
Assessment/Plan Assessment/Plan (1) Cocaine abuse (2) Chest pain (3) CHF (4) ESRD on Hemodialysis (5) Lumbar sprain s/p fall Xray of thoracic spine results pending. Pt will be continued on Bengay cream, Lidoderm patch and tramadol. Pt was d/w Dr. Rodriguez and he concurred. Subjective Date patient seen: Oct 13, 2016 Time patient seen: 07:15 - am Allergies: Coded Allergies: No Known Allergies (Unverified , 09/28/16) Subjective REVIEW OF SYSTEMS: Denies rash, fever, chills, sweating, dizziness, drowsiness, blurred vision, sore throat, or change in weight. No nausea, vomiting, diarrhea, or blood urine. No bowel or bladder incontinence. No dysuria. c/o back pain SUBJECTIVE: Pt is sitting up in chair. He continues to have pain which he rates a 5/10 and is tolerated on the Lidoderm patch, Bengay and Tramadol as needed. Xray of T spine was taken however results are pending. Objective Last 24 Hour Vital Signs Date Time Temp Pulse Resp B/P Pulse Ox O2 Delivery O2 Flow Rate FiO2 10/13/16 04:01 96.9 101 20 124/67 Room Air 10/13/16 00:00 97.0 94 20 121/68 94 Room Air 10/12/16 21:21 114/80 10/12/16 21:18 96.4 107 20 114/80 92 Room Air 10/12/16 20:00 97.5 103 19 120/70 96 Room Air 10/12/16 19:05 Room Air 2.0 10/12/16 18:59 97.5 75 19 119/66 Room Air 10/12/16 16:30 Room Air 2.0 21 10/12/16 16:00 97.5 113 22 137/78 97 Room Air 10/12/16 16:00 94 10/12/16 13:12 93 10/12/16 12:40 94 28 129/82 100 Nasal Cannula 2.0 10/12/16 12:35 94 30 125/90 99 Nasal Cannula 2.0 10/12/16 12:28 98 28 133/92 100 Nasal Cannula 2.0 10/12/16 12:28 98 28 2.0 10/12/16 12:00 97.9 98 18 108/69 97 Room Air 10/12/16 09:44 93 10/12/16 08:34 122/83 Intake and Output 10/12/16 10/13/16 19:00 07:00 Intake Total 450 ml Output Total 2100 ml Balance 450 ml -2100 ml Intake Oral 450 ml Hemodialysis UF 2100 ml # Voids 1 1 # Bowel Movements 1 8 Laboratory Tests 10/13/16 04:45: White Blood Count 8.9, Red Blood Count 2.94L, Hemoglobin 9.0L, Hematocrit 30.4L , Mean Corpuscular Volume 104H, Mean Corpuscular Hemoglobin 30.7, Mean Corpuscular Hemoglobin Concent 29.7L, Red Cell Distribution Width 24.3H, Platelet Count 350, Mean Platelet Volume 6.7, Neutrophils (%) (Auto) 72.4, Lymphocytes (%) (Auto) 9.4L, Monocytes (%) (Auto) 14.5H, Eosinophils (%) (Auto) 2.1, Basophils (%) (Auto) 1.6 Height (Feet): 5 Height (Inches): 2.00 Weight (Pounds): 73 Objective PHYSICAL EXAMINATION: GENERAL: Alert, awake, and oriented. HEENT: PERRLA. NECK: Range of motion is full in all directions. No tenderness to paracervical muscles. No adenopathy. LUNGS: Decreased breath sounds bilaterally. HEART: S1 and S2, regular. ABDOMEN: Obese. BACK: Range of motion is decreased in flexion and extension with tenderness to paraspinous and trapezius muscles. EXTREMITIES: No cyanosis, no clubbing, edema noted on RUE. NEURO: No changes. ARRON EDWARD Oct 13, 2016 08:07
--- NOTE | 2016-10-13 08:17 | Anethesia Preoperative Eval ---
Anesthesia Pre-op PMH/ROS General Date of Evaluation: Oct 13, 2016 Time of Evaluation: 08:17 Anesthesiologist: rosibel ASA Score: ASA 4 Mallampati Score Class I : Soft palate, uvula, fauces, pillars visible Class II: Soft palate, uvula, fauces visible Class III: Soft palate, base of uvula visible Class IV: Only hard plate visible Mallampati Classification: Class III Surgeon: maria c Diagnosis: anemia Surgical Procedure: colonoscopy Social History: drug use - cocaine use Family History: no anesthesia problems Allergies: Coded Allergies: No Known Allergies (Unverified , 09/28/16) Medications: see eMAR Past Medical History Cardiovascular: Reports: HTN Pulmonary: Denies: COPD, CHRISTIAN, asthma, other Gastrointestinal/Genitourinary: Reports: ESRD 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: Denies: CVA, TIA, dementia, depression/anxiety, other Endocrine: Reports: DM HEENT: Denies: UNALAKLEET (L), UNALAKLEET (R), cataract (L), cataract (R), glaucoma, other Hematology/Immune: Reports: anemia - s/p blood transfusion Musculoskeletal/Integumentary: Denies: DDD, DJD, OA, RA, edema, other PMH Narrative: 1. Chest pain after cocaine, due to vasospasm. Ruled out for myocardial infarction. Avoid beta-david in view of cocaine use. Had chest pain before Colonoscopy but Nuclear stress test showed no significant ischemia. 2. Severe Cardiomyopathy with EF 30-35%. Avoid Beta david for cocaine use. On Lisinopril 2.5 bid and dialysis. 3. History of hypertension. On Lisinopril 2.5 bid. 4. End-stage renal disease, on hemodialysis. 5. Substance abuse with cocaine. 6. Anemia due to GI bleed. Stool OB positive. S/P EGD. 7. Diabetes. Anesthesia Pre-op Phys. Exam Physician Exam Last Vital Signs Date Time Temp Pulse Resp B/P Pulse Ox O2 Delivery O2 Flow Rate FiO2 10/13/16 04:01 96.9 101 20 124/67 Room Air 10/13/16 00:00 94 10/12/16 19:05 2.0 21 Airway Exam Mallampati Score: Class II Anesthesia Pre-op A/P Labs Hematology Test 10/13/16 04:45 White Blood Count 8.9 K/UL (4.8-10.8) Red Blood Count 2.94 M/UL (4.70-6.10) L Hemoglobin 9.0 G/DL (14.2-18.0) L Hematocrit 30.4 % (42.0-52.0) L Mean Corpuscular Volume 104 FL (80-99) H Mean Corpuscular Hemoglobin 30.7 PG (27.0-31.0) Mean Corpuscular Hemoglobin Concent 29.7 G/DL (32.0-36.0) L Red Cell Distribution Width 24.3 % (11.6-14.8) H Platelet Count 350 K/UL (150-450) Mean Platelet Volume 6.7 FL (6.5-10.1) Neutrophils (%) (Auto) 72.4 % (45.0-75.0) Lymphocytes (%) (Auto) 9.4 % (20.0-45.0) L Monocytes (%) (Auto) 14.5 % (1.0-10.0) H Eosinophils (%) (Auto) 2.1 % (0.0-3.0) Basophils (%) (Auto) 1.6 % (0.0-2.0) Risk Assessment & Plan Plan: mac Status Change Before Surgery: No Pre-Antibiotics Drug: none REJI DELVALLE CRNA Oct 13, 2016 08:17
--- NOTE | 2016-10-13 08:38 | Pre-Procedure Note/Attestation ---
Pre-Procedure Note/Attestation Complete Prior to Procedure Planned Procedure: not applicable Procedure Narrative: colonoscopy Indications for Procedure Pre-Operative Diagnosis: gib Attestation I attest that I discussed the nature of the procedure; its benefits; risks and complications; and alternatives (and the risks and benefits of such alternatives ), prior to the procedure, with the patient (or the patient's legal veterans employment representative). I attest that, if there was a reasonable possibility of needing a blood transfusion, the patient (or the patient's legal veterans employment representative) was given the [facility] standardized written summary, pursuant to the [place]án No Blood Safety Act ([place] Health and Safety Code # 1645, as amended). I attest that I re-evaluated the patient just prior to the surgery and that there has been no change in the patient's H&P, except as documented below: JEANETTE WILLETT Oct 13, 2016 08:38
[2016-10-13] MEDS ORDERED: NS 550ML IV ONE (08:48)
[2016-10-13] MEDS: Lisinopril 2.5mg tab ORAL SCH ×2 (09:00→21:02)
--- NOTE | 2016-10-13 09:10 | Endoscopy Procedure Note ---
Endoscopy Procedure Note Indication for Procedure: anemia Procedures Performed: colonoscopy Operative Findings/Diagnosis: 2 polyps Specimen: yes Pt Tolerated Procedure Well: Yes Estimated Blood Loss: none Anesthesiologist: rosie Anesthesia: MAC Implant(s) used?: No 50 yrs or older w/o bx or poly: Not Applicable 10yrs. F/U not recommended: Not Applicable JEANETTE WILLETT Oct 13, 2016 09:10
[2016-10-13 09:34] LABS: CALCIUM 9.3 mg/dL (8.6-10.2); CREATININE 5.2 mg/dL (0.7-1.2); GLOMERULAR FILTRATION RATE 13.7 mL/min (>60); POTASSIUM 4.4 mEQ/L (3.4-4.9)
[2016-10-13 09:36] LABS: INR 1.4 (0.9-1.1); PROTHROMBIN TIME 14.3 SEC (9.30-11.50)
--- NOTE | 2016-10-13 09:46 | 48 Hour Post Anesthesia Eval ---
Post Anesthesia Evaluation Procedure: EGD Date of Evaluation: Oct 13, 2016 Time of Evaluation: 09:44 Blood Pressure Systolic: 129 0: 67 Pulse Rate: 70 Respiratory Rate: 14 O2 Sat by Pulse Oximetry: 100 Airway: patent Nausea: No Vomiting: No Hydration Status: adequate Mental Status/LOC: patient returned to baseline Post-Anesthesia Complications: none Follow-up care needed: N/A REJI DELVALLE CRNA Oct 13, 2016 09:46
[2016-10-13] MEDS ORDERED: Lidocaine 1% MPF 10mg/ml 5ml ONE (10:00)
[2016-10-13] MEDS ORDERED: Propofol 10mg/ml 20ml IV ONE (10:00)
[2016-10-13] MEDS: Analgesic Balm 15gm TOPIC SCH ×4 (11:10→21:00)
[2016-10-13] MEDS: Nephrovite tab ORAL SCH (11:10)
[2016-10-13] MEDS: NovoLOG Insulin Flexpen SUBQ SCH ×3 (11:30→21:00)
--- NOTE | 2016-10-13 11:30 | Immediate Post-Op Evaluation ---
Immediate Post-Op Evalulation Immediate Post-Op Evalulation Procedure: EGD Date of Evaluation: Oct 13, 2016 Time of Evaluation: 09:20 IV Fluids: 200 Blood Pressure Systolic: 143 Blood Pressure Diastolic: 92 Pulse Rate: 90 Respiratory Rate: 14 O2 Sat by Pulse Oximetry: 99 Temperature (Fahrenheit): 96.9 Nausea: No Vomiting: No Complications none Patient Status: awake, reacts, patent Hydration Status: adequate Drug: none REJI DELVALLE CRNA Oct 13, 2016 11:30
--- NOTE | 2016-10-13 12:30 | General Progress Note ---
Assessment/Plan Status: stable Assessment/Plan Status: (1) ESRD (end stage renal disease) on dialysis (2) Chest pain (3) Cocaine abuse (4) Anemia in chronic kidney disease (5) ? DVT right UE (6) Cardiomyopathy: Global left ventricular hypokinesis. Worse septal apper akinetic s. Left ventricular ejection fraction estimated to be 30-35 %. Plan: Next HD Tuesday10/11/16- was held as the permacath is out ! had dialysis access placed 10/12 and dialysed 10/12 next HD 10/14 On marcie inhibitors- per consultants ? DC planning Subjective ROS Limited/Unobtainable: No Constitutional: Reports: malaise Allergies: Coded Allergies: No Known Allergies (Unverified , 09/28/16) Objective Last 24 Hour Vital Signs Date Time Temp Pulse Resp B/P Pulse Ox O2 Delivery O2 Flow Rate FiO2 10/13/16 11:30 90 14 99 10/13/16 10:15 97.0 86 20 128/66 98 Simple Mask 5.0 10/13/16 10:00 84 20 127/64 98 Simple Mask 5.0 10/13/16 09:46 70 14 100 10/13/16 09:25 86 20 133/61 98 Simple Mask 5.0 10/13/16 09:20 96.8 87 20 139/79 98 Simple Mask 5.0 10/13/16 08:47 97.8 85 20 129/67 94 Room Air 10/13/16 04:01 96.9 101 20 124/67 Room Air 10/13/16 00:00 97.0 94 20 121/68 94 Room Air 10/12/16 21:21 114/80 10/12/16 21:18 96.4 107 20 114/80 92 Room Air 10/12/16 20:00 97.5 103 19 120/70 96 Room Air 10/12/16 19:05 Room Air 2.0 10/12/16 18:59 97.5 75 19 119/66 Room Air 10/12/16 16:30 Room Air 2.0 10/12/16 16:00 97.5 113 22 137/78 97 Room Air 10/12/16 16:00 94 10/12/16 13:12 93 10/12/16 12:40 94 28 129/82 100 Nasal Cannula 2.0 10/12/16 12:35 94 30 125/90 99 Nasal Cannula 2.0 Intake and Output 10/12/16 10/13/16 19:00 07:00 Intake Total 450 ml Output Total 2100 ml Balance 450 ml -2100 ml Intake Oral 450 ml Hemodialysis UF 2100 ml # Voids 1 1 # Bowel Movements 1 8 Laboratory Tests 10/13/16 04:45: White Blood Count 8.9, Red Blood Count 2.94L, Hemoglobin 9.0L, Hematocrit 30.4L , Mean Corpuscular Volume 104H, Mean Corpuscular Hemoglobin 30.7, Mean Corpuscular Hemoglobin Concent 29.7L, Red Cell Distribution Width 24.3H, Platelet Count 350, Mean Platelet Volume 6.7, Neutrophils (%) (Auto) 72.4, Lymphocytes (%) (Auto) 9.4L, Monocytes (%) (Auto) 14.5H, Eosinophils (%) (Auto) 2.1, Basophils (%) (Auto) 1.6 10/13/16 08:40: Prothrombin Time 14.3H, Prothromb Time International Ratio 1.4H, Activated Partial Thromboplast Time 29, Sodium Level 136, Potassium Level 4.4, Chloride Level 90L, Carbon Dioxide Level 25, Anion Gap 21H, Blood Urea Nitrogen 39H, Creatinine 5.2H, Estimat Glomerular Filtration Rate 13.7, Glucose Level 83, Calcium Level 9.3 Height (Feet): 5 Height (Inches): 2.00 Weight (Pounds): 73 General Appearance: no apparent distress Objective no change in PE KALEY RIOS Oct 13, 2016 12:30
--- NOTE | 2016-10-13 12:47 | Procedure Note ---
DATE OF PROCEDURE: 10/13/2016 SURGEON: Warner Bal M.D. PROCEDURE: Upper endoscopy with biopsy and colonoscopy with snare polypectomy and biopsy. ANESTHESIA: Per CHIEF CONTROLLER TOWER, Jody. INSTRUMENT: Olympus adult flexible colonoscope. INDICATION: Anemia. DESCRIPTION OF PROCEDURE: The procedure, risks, benefits, and possible consequences, including hemorrhage, aspiration, perforation and infection, and alternative treatments, were explained to the patient/legal guardian by Dr. Warner Bal and the patient/legal guardian understood and accepted these risks. After informed consent was obtained and the patient was adequately sedated, first rectal exam was performed, which was normal. Then, the scope was advanced from the rectum into the cecum documented by appendiceal orifice, ileocecal valve, and right upper quadrant palpation. Quality of prep was very good. The patient has significant diverticulosis both in the left and right of course left more than right. He has severe diverticulosis. There was two polyps in this colonoscopy examination, one diminutive polyp in the ascending colon, removed with the cold biopsy forcep technique, and another polyp which was about centimeters sessile in the transverse colon, removed with the snare polypectomy technique. There is no further polyp seen. There is no active bleeding at this time. Retroflexion of rectum showed evidence of medium-sized internal hemorrhoids. SUMMARY OF FINDINGS: 1. Significant diverticulosis. 2. Two polyps removed, see above for details. 3. Internal hemorrhoids. RECOMMENDATIONS: 1. Follow up biopsy results and treat accordingly. 2. Recommend repeat colonoscopy in three years. I want to thank, Dr. Elizondo, for this kind referral. Please see copies of Dr. Elizondo. Warner Bal M.D. DR: MARIJA JOB#: [id number] CC: JOEY
--- NOTE | 2016-10-13 14:53 | General Progress Note ---
Assessment/Plan Problem List: (1) Cocaine abuse ICD Codes: F14.10 - Cocaine abuse, uncomplicated SNOMED: 63115999, [id number] (2) Chest pain ICD Codes: R07.9 - Chest pain, unspecified SNOMED: 82885851, [id number] Qualifiers: Qualified Codes: R07.9 - Chest pain, unspecified Status: progressing Assessment/Plan chest pain esrd on hd check lytes chekc h/h Subjective ROS Limited/Unobtainable: Yes Constitutional: Reports: no symptoms Allergies: Coded Allergies: No Known Allergies (Unverified , 09/28/16) Objective Last 24 Hour Vital Signs Date Time Temp Pulse Resp B/P Pulse Ox O2 Delivery O2 Flow Rate FiO2 10/13/16 12:00 97.8 105 20 133/86 99 Room Air 10/13/16 11:30 90 14 99 10/13/16 10:15 97.0 86 20 128/66 98 Simple Mask 5.0 10/13/16 10:00 84 20 127/64 98 Simple Mask 5.0 10/13/16 09:46 70 14 100 10/13/16 09:25 86 20 133/61 98 Simple Mask 5.0 10/13/16 09:20 96.8 87 20 139/79 98 Simple Mask 5.0 10/13/16 08:47 97.8 85 20 129/67 94 Room Air 10/13/16 04:01 96.9 101 20 124/67 Room Air 10/13/16 00:00 97.0 94 20 121/68 94 Room Air 10/12/16 21:21 114/80 10/12/16 21:18 96.4 107 20 114/80 92 Room Air 10/12/16 20:00 97.5 103 19 120/70 96 Room Air 10/12/16 19:05 Room Air 2.0 21 10/12/16 18:59 97.5 75 19 119/66 Room Air 10/12/16 16:30 Room Air 2.0 21 10/12/16 16:00 97.5 113 22 137/78 97 Room Air 10/12/16 16:00 94 Intake and Output 10/12/16 10/13/16 19:00 07:00 Intake Total 450 ml Output Total 2100 ml Balance 450 ml -2100 ml Intake Oral 450 ml Hemodialysis UF 2100 ml # Voids 1 1 # Bowel Movements 1 8 Laboratory Tests 10/13/16 04:45: White Blood Count 8.9, Red Blood Count 2.94L, Hemoglobin 9.0L, Hematocrit 30.4L , Mean Corpuscular Volume 104H, Mean Corpuscular Hemoglobin 30.7, Mean Corpuscular Hemoglobin Concent 29.7L, Red Cell Distribution Width 24.3H, Platelet Count 350, Mean Platelet Volume 6.7, Neutrophils (%) (Auto) 72.4, Lymphocytes (%) (Auto) 9.4L, Monocytes (%) (Auto) 14.5H, Eosinophils (%) (Auto) 2.1, Basophils (%) (Auto) 1.6 10/13/16 08:40: Prothrombin Time 14.3H, Prothromb Time International Ratio 1.4H, Activated Partial Thromboplast Time 29, Sodium Level 136, Potassium Level 4.4, Chloride Level 90L, Carbon Dioxide Level 25, Anion Gap 21H, Blood Urea Nitrogen 39H, Creatinine 5.2H, Estimat Glomerular Filtration Rate 13.7, Glucose Level 83, Calcium Level 9.3 Height (Feet): 5 Height (Inches): 2.00 Weight (Pounds): 73 EENT: PERRL/EOMI Neck: supple Cardiovascular: normal rate Respiratory/Chest: lungs clear Abdomen: soft Liu Elizondo MD Oct 13, 2016 14:53
--- NOTE | 2016-10-13 16:07 | Cardiac Electrophysiology PN ---
Assessment/Plan Status Narrative Moderate left ventricular enlargement. Global left ventricular hypokinesis. Worse septal apper akinetic s. Left ventricular ejection fraction estimated to be 30-35 %. No evidence of left ventricular hypertrophy. No evidence of pericardial fat or effusion. Severe right atrial enlargement by 2D. Mild right atrial enlargement by 2D. Focal aortic valve sclerosis with adequate cusp excursion Mildly thickened mitral valve leaflets with normal excursion. Mitral annulus and aortic root calcification. Pulmonic valve is well visualized. Normal tricuspid valve structure. IVC dilated at 2.7cm no physiologic collapse with respiration.RA pressure of 20mmHg. Assessment/Plan 1. Chest pain due to cocaine vasospasm. Ruled out for myocardial infarction. Avoid beta-david in view of cocaine use. Nuclear stress test showed no significant ischemia. 2. Severe Cardiomyopathy with EF 30-35%. Avoid Beta david for cocaine use. On Lisinopril 2.5 bid and dialysis. 3. History of hypertension. On Lisinopril 2.5 bid. 4. End-stage renal disease, on hemodialysis. 5. Substance abuse with cocaine. 6. Anemia due to GI bleed. Stool OB positive. S/P EGD.Refused Colonoscopy. 7. Diabetes. ZOHREH RN Offtele. Subjective Subjective No chest pain or SOB. Transferred to nonmonitored bed.Complains of back pain. Objective Last 24 Hour Vital Signs Date Time Temp Pulse Resp B/P Pulse Ox O2 Delivery O2 Flow Rate FiO2 10/13/16 12:00 97.8 105 20 133/86 99 Room Air 10/13/16 11:30 90 14 99 10/13/16 10:15 97.0 86 20 128/66 98 Simple Mask 5.0 10/13/16 10:00 84 20 127/64 98 Simple Mask 5.0 10/13/16 09:46 70 14 100 10/13/16 09:25 86 20 133/61 98 Simple Mask 5.0 10/13/16 09:20 96.8 87 20 139/79 98 Simple Mask 5.0 10/13/16 08:47 97.8 85 20 129/67 94 Room Air 10/13/16 04:01 96.9 101 20 124/67 Room Air 10/13/16 00:00 97.0 94 20 121/68 94 Room Air 10/12/16 21:21 114/80 10/12/16 21:18 96.4 107 20 114/80 92 Room Air 10/12/16 20:00 97.5 103 19 120/70 96 Room Air 10/12/16 19:05 Room Air 2.0 21 10/12/16 18:59 97.5 75 19 119/66 Room Air 10/12/16 16:30 Room Air 2.0 21 Intake and Output 10/12/16 10/13/16 19:00 07:00 Intake Total 450 ml Output Total 2100 ml Balance 450 ml -2100 ml Intake Oral 450 ml Hemodialysis UF 2100 ml # Voids 1 1 # Bowel Movements 1 8 Laboratory Tests Test 10/13/16 04:45 10/13/16 08:40 White Blood Count 8.9 K/UL (4.8-10.8) Red Blood Count 2.94 M/UL (4.70-6.10) L Hemoglobin 9.0 G/DL (14.2-18.0) L Hematocrit 30.4 % (42.0-52.0) L Mean Corpuscular Volume 104 FL (80-99) H Mean Corpuscular Hemoglobin 30.7 PG (27.0-31.0) Mean Corpuscular Hemoglobin Concent 29.7 G/DL (32.0-36.0) L Red Cell Distribution Width 24.3 % (11.6-14.8) H Platelet Count 350 K/UL (150-450) Mean Platelet Volume 6.7 FL (6.5-10.1) Neutrophils (%) (Auto) 72.4 % (45.0-75.0) Lymphocytes (%) (Auto) 9.4 % (20.0-45.0) L Monocytes (%) (Auto) 14.5 % (1.0-10.0) H Eosinophils (%) (Auto) 2.1 % (0.0-3.0) Basophils (%) (Auto) 1.6 % (0.0-2.0) Prothrombin Time 14.3 SEC (9.30-11.50) H Prothromb Time International Ratio 1.4 (0.9-1.1) H Activated Partial Thromboplast Time 29 SEC (23-33) Sodium Level 136 mEQ/L (135-145) Potassium Level 4.4 mEQ/L (3.4-4.9) Chloride Level 90 mEQ/L (98-107) L Carbon Dioxide Level 25 mEQ/L (20-30) Anion Gap 21 (5-15) H Blood Urea Nitrogen 39 mg/dL (7-23) H Creatinine 5.2 mg/dL (0.7-1.2) H Estimat Glomerular Filtration Rate 13.7 mL/min (>60) Glucose Level 83 mg/dL (74-106) Calcium Level 9.3 mg/dL (8.6-10.2) Objective HEAD AND NECK: Showed no jugular venous distention or carotid bruits. LUNGS: Clear. CARDIOVASCULAR: Regular S1 and S2 with no gallop or murmur. ABDOMEN: Soft and nontender. EXTREMITIES: No pitting edema. Dialysis access in the right chest. DILIA GUERRERO Oct 13, 2016 16:07
--- NOTE | 2016-10-13 17:19 | Infectious Diseases Prog Note ---
Assessment/Plan Problems: (1) Colonization with VRE (vancomycin-resistant enterococcus) Assessment & Plan: keep in contact isolation (2) ESRD (end stage renal disease) on dialysis Assessment & Plan: continue HD as per renal. (3) Cocaine abuse Assessment & Plan: recommend counseling and rehab (4) Chest pain Assessment & Plan: had stress test , cardiology is following (5) Anemia in chronic kidney disease Assessment & Plan: stable, monitor H/H transfuse as needed (6) GIB (gastrointestinal bleeding) Assessment & Plan: monitor H/H transfuse blood as needed Subjective Constitutional: Reports: no symptoms HEENT: Reports: no symptoms Respiratory: Reports: no symptoms Breasts: Reports: no symptoms Cardiovascular: Reports: no symptoms Gastrointestinal/Abdominal: Reports: no symptoms Genitourinary: Reports: no symptoms Neurologic: Reports: no symptoms Psychiatric: Reports: no symptoms Skin: Reports: no symptoms Allergies: Coded Allergies: No Known Allergies (Unverified , 09/28/16) Subjective he was doing well today, denied any symptoms. Objective Vital Signs Last 24 Hour Vital Signs Date Time Temp Pulse Resp B/P Pulse Ox O2 Delivery O2 Flow Rate FiO2 10/13/16 12:00 97.8 105 20 133/86 99 Room Air 10/13/16 11:30 90 14 99 10/13/16 10:15 97.0 86 20 128/66 98 Simple Mask 5.0 10/13/16 10:00 84 20 127/64 98 Simple Mask 5.0 10/13/16 09:46 70 14 100 10/13/16 09:25 86 20 133/61 98 Simple Mask 5.0 10/13/16 09:20 96.8 87 20 139/79 98 Simple Mask 5.0 10/13/16 08:47 97.8 85 20 129/67 94 Room Air 10/13/16 04:01 96.9 101 20 124/67 Room Air 10/13/16 00:00 97.0 94 20 121/68 94 Room Air 10/12/16 21:21 114/80 10/12/16 21:18 96.4 107 20 114/80 92 Room Air 10/12/16 20:00 97.5 103 19 120/70 96 Room Air 10/12/16 19:05 Room Air 2.0 21 10/12/16 18:59 97.5 75 19 119/66 Room Air Height (Feet): 5 Height (Inches): 2.00 Weight (Pounds): 73 General Appearance: WD/WN, no acute distress HEENT: normocephalic, atraumatic, anicteric, mucous membranes moist Respiratory/Chest: chest wall non-tender, lungs clear, normal breath sounds, no respiratory distress, no accessory muscle use Cardiovascular: normal peripheral pulses, normal rate, regular rhythm, no gallop/murmur Abdomen: normal bowel sounds, soft, non tender, no organomegaly, non distended , no mass Extremities: no cyanosis, no clubbing Skin: no rash, no lesions Laboratory Tests Test 10/13/16 04:45 10/13/16 08:40 White Blood Count 8.9 K/UL (4.8-10.8) Red Blood Count 2.94 M/UL (4.70-6.10) L Hemoglobin 9.0 G/DL (14.2-18.0) L Hematocrit 30.4 % (42.0-52.0) L Mean Corpuscular Volume 104 FL (80-99) H Mean Corpuscular Hemoglobin 30.7 PG (27.0-31.0) Mean Corpuscular Hemoglobin Concent 29.7 G/DL (32.0-36.0) L Red Cell Distribution Width 24.3 % (11.6-14.8) H Platelet Count 350 K/UL (150-450) Mean Platelet Volume 6.7 FL (6.5-10.1) Neutrophils (%) (Auto) 72.4 % (45.0-75.0) Lymphocytes (%) (Auto) 9.4 % (20.0-45.0) L Monocytes (%) (Auto) 14.5 % (1.0-10.0) H Eosinophils (%) (Auto) 2.1 % (0.0-3.0) Basophils (%) (Auto) 1.6 % (0.0-2.0) Prothrombin Time 14.3 SEC (9.30-11.50) H Prothromb Time International Ratio 1.4 (0.9-1.1) H Activated Partial Thromboplast Time 29 SEC (23-33) Sodium Level 136 mEQ/L (135-145) Potassium Level 4.4 mEQ/L (3.4-4.9) Chloride Level 90 mEQ/L (98-107) L Carbon Dioxide Level 25 mEQ/L (20-30) Anion Gap 21 (5-15) H Blood Urea Nitrogen 39 mg/dL (7-23) H Creatinine 5.2 mg/dL (0.7-1.2) H Estimat Glomerular Filtration Rate 13.7 mL/min (>60) Glucose Level 83 mg/dL (74-106) Calcium Level 9.3 mg/dL (8.6-10.2) Current Medications Medications (Trade) Dose Ordered Sig/Lillian Route PRN Reason Start Time Stop Time Status Last Admin Dose Admin Acetaminophen (Tylenol) 650 mg Q4H PRN ORAL Fever 10/06/16 15:30 11/05/16 15:29 10/10/16 06:37 Dextrose (Dextrose 50%) STAT PRN IV Hypoglycemia 10/06/16 19:30 11/05/16 19:29 Epoetin Jsoeph (Procrit (for ESRD on dialysis)) 5,000 units TUE-TUE-TUE SUBQ 10/06/16 21:00 11/05/16 20:59 10/11/16 21:18 Insulin Aspart (NovoLOG) BEFORE MEALS AND HS SUBQ 10/06/16 16:30 11/05/16 16:29 Lidocaine (Lidoderm 5% PATCH) 1 patch DAILY TDERMAL 10/07/16 09:00 11/06/16 08:59 10/13/16 11:10 Lidocaine HCl (Xylocaine 1% 30ml) 30 ml ONCE PRN INJ FOR PICC LINE INSERTION 10/12/16 10:15 10/13/16 23:59 Lisinopril (Zestril) 2.5 mg Q12HR ORAL 10/06/16 21:00 11/05/16 20:59 10/12/16 21:21 Menthol/Methyl Salicylate (Bengay) 1 applic FOUR TIMES A DAY TOPIC 10/10/16 13:00 11/09/16 12:59 10/13/16 11:10 Ondansetron HCl (Zofran) 4 mg Q6H PRN IVP Nausea & Vomiting 10/06/16 13:30 11/05/16 13:29 Pantoprazole (Protonix) 40 mg ACBREAKFAST ORAL 10/09/16 06:30 1/28/17 08:59 10/12/16 06:12 Polyethylene Glycol (Miralax) 17 gm DAILYPRN PRN ORAL Constipation 10/06/16 19:30 11/05/16 19:29 10/12/16 21:13 Temazepam (Restoril) 15 mg HSPRN PRN ORAL Insomnia 10/06/16 19:30 10/13/16 19:29 Vitamin B Complex/ Vit C/Folic Acid (Nephrovite) 1 tab DAILY ORAL 10/07/16 09:00 11/06/16 08:59 10/13/16 11:10 Ivania Bhardwaj M.D. Oct 13, 2016 17:19
--- NOTE | 2016-10-13 18:11 | Pulmonology Progress Note ---
Assessment/Plan Problems: (1) Chest pain Assessment & Plan: stress study was negative (2) Acute respiratory failure Assessment & Plan: improved (3) Anemia in chronic kidney disease (4) ESRD (end stage renal disease) on dialysis (5) Fluid overload (6) Cocaine abuse (7) Back pain Assessment/Plan Hd access fell off, Needs a new access cardiac evaluation appreciated HD as needed med/surg if ok with Cardio Subjective ROS Limited/Unobtainable: No Cardiovascular: Reports: chest pain, palpitations Allergies: Coded Allergies: No Known Allergies (Unverified , 09/28/16) Objective Last 24 Hour Vital Signs Date Time Temp Pulse Resp B/P Pulse Ox O2 Delivery O2 Flow Rate FiO2 10/13/16 16:00 97.2 47 18 127/90 95 Room Air 10/13/16 12:00 97.8 105 20 133/86 99 Room Air 10/13/16 11:30 90 14 99 10/13/16 10:15 97.0 86 20 128/66 98 Simple Mask 5.0 10/13/16 10:00 84 20 127/64 98 Simple Mask 5.0 10/13/16 09:46 70 14 100 10/13/16 09:25 86 20 133/61 98 Simple Mask 5.0 10/13/16 09:20 96.8 87 20 139/79 98 Simple Mask 5.0 10/13/16 08:47 97.8 85 20 129/67 94 Room Air 10/13/16 04:01 96.9 101 20 124/67 Room Air 10/13/16 00:00 97.0 94 20 121/68 94 Room Air 10/12/16 21:21 114/80 10/12/16 21:18 96.4 107 20 114/80 92 Room Air 10/12/16 20:00 97.5 103 19 120/70 96 Room Air 10/12/16 19:05 Room Air 2.0 21 10/12/16 18:59 97.5 75 19 119/66 Room Air Intake and Output 10/12/16 10/13/16 19:00 07:00 Intake Total 450 ml Output Total 2100 ml Balance 450 ml -2100 ml Intake Oral 450 ml Hemodialysis UF 2100 ml # Voids 1 1 # Bowel Movements 1 8 General Appearance: no acute distress HEENT: normocephalic, atraumatic, anicteric, PERRL Respiratory/Chest: chest wall non-tender, lungs clear, no respiratory distress Cardiovascular: normal peripheral pulses, normal rate, regular rhythm, no JVD Abdomen: normal bowel sounds, soft, non tender, no organomegaly Genitourinary: normal external genitalia Extremities: no cyanosis Skin: no rash, no lesions 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: 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 grossly normal, no motor/sensory deficits Laboratory Tests 10/13/16 04:45: White Blood Count 8.9, Red Blood Count 2.94L, Hemoglobin 9.0L, Hematocrit 30.4L , Mean Corpuscular Volume 104H, Mean Corpuscular Hemoglobin 30.7, Mean Corpuscular Hemoglobin Concent 29.7L, Red Cell Distribution Width 24.3H, Platelet Count 350, Mean Platelet Volume 6.7, Neutrophils (%) (Auto) 72.4, Lymphocytes (%) (Auto) 9.4L, Monocytes (%) (Auto) 14.5H, Eosinophils (%) (Auto) 2.1, Basophils (%) (Auto) 1.6 10/13/16 08:40: Prothrombin Time 14.3H, Prothromb Time International Ratio 1.4H, Activated Partial Thromboplast Time 29, Sodium Level 136, Potassium Level 4.4, Chloride Level 90L, Carbon Dioxide Level 25, Anion Gap 21H, Blood Urea Nitrogen 39H, Creatinine 5.2H, Estimat Glomerular Filtration Rate 13.7, Glucose Level 83, Calcium Level 9.3 Current Medications Medications (Trade) Dose Ordered Sig/Lillian Route PRN Reason Start Time Stop Time Status Last Admin Dose Admin Acetaminophen (Tylenol) 650 mg Q4H PRN ORAL Fever 10/06/16 15:30 11/05/16 15:29 10/10/16 06:37 Dextrose (Dextrose 50%) STAT PRN IV Hypoglycemia 10/06/16 19:30 11/05/16 19:29 Epoetin Joseph (Procrit (for ESRD on dialysis)) 5,000 units MON-WED-TUE SUBQ 10/06/16 21:00 11/05/16 20:59 10/11/16 21:18 Insulin Aspart (NovoLOG) BEFORE MEALS AND HS SUBQ 10/06/16 16:30 11/05/16 16:29 Lidocaine (Lidoderm 5% PATCH) 1 patch DAILY TDERMAL 10/07/16 09:00 11/06/16 08:59 10/13/16 11:10 Lidocaine HCl (Xylocaine 1% 30ml) 30 ml ONCE PRN INJ FOR PICC LINE INSERTION 10/12/16 10:15 10/13/16 23:59 Lisinopril (Zestril) 2.5 mg Q12HR ORAL 10/06/16 21:00 11/05/16 20:59 10/12/16 21:21 Menthol/Methyl Salicylate (Bengay) 1 applic FOUR TIMES A DAY TOPIC 10/10/16 13:00 11/09/16 12:59 10/13/16 11:10 Ondansetron HCl (Zofran) 4 mg Q6H PRN IVP Nausea & Vomiting 10/06/16 13:30 11/05/16 13:29 Pantoprazole (Protonix) 40 mg ACBREAKFAST ORAL 10/09/16 06:30 11/06/16 08:59 10/12/16 06:12 Polyethylene Glycol (Miralax) 17 gm DAILYPRN PRN ORAL Constipation 10/06/16 19:30 11/05/16 19:29 10/12/16 21:13 Temazepam (Restoril) 15 mg HSPRN PRN ORAL Insomnia 10/06/16 19:30 10/13/16 19:29 Vitamin B Complex/ Vit C/Folic Acid (Nephrovite) 1 tab DAILY ORAL 10/07/16 09:00 11/06/16 08:59 10/13/16 11:10 CARLOS ALBERTO HERMAN Oct 13, 2016 18:11
--- NOTE | 2016-10-13 21:59 | Nephrology Progress Note ---
Assessment/Plan Problem List: (1) ESRD (end stage renal disease) on dialysis (2) Chest pain (3) Cocaine abuse (4) Anemia in chronic kidney disease Plan dialysis on 10/11 Dr Mas follows Subjective Subjective Pt was seen on 10/10/16 note is missing Objective Objective Last 24 Hour Vital Signs Date Time Temp Pulse Resp B/P Pulse Ox O2 Delivery O2 Flow Rate FiO2 10/13/16 21:02 126/56 10/13/16 20:15 96.6 69 20 126/56 99 Room Air 10/13/16 16:00 97.2 47 18 127/90 95 Room Air 10/13/16 12:00 97.8 105 20 133/86 99 Room Air 10/13/16 11:30 90 14 99 10/13/16 10:15 97.0 86 20 128/66 98 Simple Mask 5.0 10/13/16 10:00 84 20 127/64 98 Simple Mask 5.0 10/13/16 09:46 70 14 100 10/13/16 09:25 86 20 133/61 98 Simple Mask 5.0 10/13/16 09:20 96.8 87 20 139/79 98 Simple Mask 5.0 10/13/16 08:47 97.8 85 20 129/67 94 Room Air 10/13/16 04:01 96.9 101 20 124/67 Room Air 10/13/16 00:00 97.0 94 20 121/68 94 Room Air Intake and Output 10/12/16 10/13/16 19:00 07:00 Intake Total 450 ml Output Total 2100 ml Balance 450 ml -2100 ml Intake Oral 450 ml Hemodialysis UF 2100 ml # Voids 1 1 # Bowel Movements 1 8 Laboratory Tests 10/13/16 04:45: White Blood Count 8.9, Red Blood Count 2.94L, Hemoglobin 9.0L, Hematocrit 30.4L , Mean Corpuscular Volume 104H, Mean Corpuscular Hemoglobin 30.7, Mean Corpuscular Hemoglobin Concent 29.7L, Red Cell Distribution Width 24.3H, Platelet Count 350, Mean Platelet Volume 6.7, Neutrophils (%) (Auto) 72.4, Lymphocytes (%) (Auto) 9.4L, Monocytes (%) (Auto) 14.5H, Eosinophils (%) (Auto) 2.1, Basophils (%) (Auto) 1.6 1/4/17 08:40: Prothrombin Time 14.3H, Prothromb Time International Ratio 1.4H, Activated Partial Thromboplast Time 29, Sodium Level 136, Potassium Level 4.4, Chloride Level 90L, Carbon Dioxide Level 25, Anion Gap 21H, Blood Urea Nitrogen 39H, Creatinine 5.2H, Estimat Glomerular Filtration Rate 13.7, Glucose Level 83, Calcium Level 9.3 Height (Feet): 5 Height (Inches): 2.00 Weight (Pounds): 73 HAI BURGESS Oct 13, 2016 21:59
[2016-10-13] MEDS: Epogen (for ESRD on dialysis) SUBQ SCH (22:30)
[2016-10-14] VITALS (8 sets, daily range): BP systolic 105–130; BP diastolic 56–68
[2016-10-14] MEDS: NovoLOG Insulin Flexpen SUBQ SCH ×4 (06:08→21:00)
[2016-10-14 07:08] LABS: BASOPHILS % (AUTO) 1.1 % (0.0-2.0); EOSINOPHILS % (AUTO) 2.4 % (0.0-3.0); MEAN CORPUSCULAR HEMOGLOBIN 31.2 PG (27.0-31.0); MEAN CORPUSCULAR HGB CONC 30.1 G/DL (32.0-36.0); MEAN CORPUSCULAR VOLUME 104 FL (80-99); MEAN PLATELET VOLUME 6.2 FL (6.5-10.1); MONOCYTES % (AUTO) 8.9 % (1.0-10.0); NEUTROPHILS % (AUTO) 77.5 % (45.0-75.0); PLATELET COUNT 345 K/UL (150-450); RED BLOOD COUNT 2.65 M/UL (4.70-6.10); RED CELL DISTRIBUTION WIDTH 24.2 % (11.6-14.8); WHITE BLOOD COUNT 7.8 K/UL (4.8-10.8)
[2016-10-14 07:21] LABS: ALBUMIN/GLOBULIN RATIO 0.8 (1.0-2.7); CREATININE 5.8 mg/dL (0.7-1.2); GLOMERULAR FILTRATION RATE 12.1 mL/min (>60); POTASSIUM 4.1 mEQ/L (3.4-4.9); TOTAL PROTEIN 6.2 g/dL (6.6-8.7)
--- NOTE | 2016-10-14 08:34 | General Progress Note ---
Assessment/Plan Assessment/Plan (1) Cocaine abuse (2) Chest pain (3) CHF (4) ESRD on Hemodialysis (5) Lumbar sprain s/p fall (6) T spine compression fracture MRI of T spine w/o contrast ordered to evaluate T7 compression fx. Pt will be continued on Bengay cream, Lidoderm patch and tramadol. Pt was d/w Dr. Rodriguez and he concurred. Subjective Date patient seen: Oct 14, 2016 Time patient seen: 07:15 - am Allergies: Coded Allergies: No Known Allergies (Unverified , 09/28/16) Subjective REVIEW OF SYSTEMS: Denies rash, fever, chills, sweating, dizziness, drowsiness, blurred vision, sore throat, or change in weight. No nausea, vomiting, diarrhea, or blood urine. No bowel or bladder incontinence. No dysuria. c/o back pain SUBJECTIVE: Pain has been stable on the current medications. Xray was reviewed with patient and d/w him about MRI. Objective Last 24 Hour Vital Signs Date Time Temp Pulse Resp B/P Pulse Ox O2 Delivery O2 Flow Rate FiO2 10/14/16 04:00 97.9 97 18 130/58 97 Room Air 10/14/16 00:00 98.0 105 20 113/68 92 Room Air 10/13/16 21:02 126/56 10/13/16 20:15 96.6 69 20 126/56 99 Room Air 10/13/16 16:00 97.2 47 18 127/90 95 Room Air 10/13/16 12:00 97.8 105 20 133/86 99 Room Air 10/13/16 11:30 90 14 99 10/13/16 10:15 97.0 86 20 128/66 98 Simple Mask 5.0 10/13/16 10:00 84 20 127/64 98 Simple Mask 5.0 10/13/16 09:46 70 14 100 10/13/16 09:25 86 20 133/61 98 Simple Mask 5.0 10/13/16 09:20 96.8 87 20 139/79 98 Simple Mask 5.0 10/13/16 08:47 97.8 85 20 129/67 94 Room Air Intake and Output 10/13/16 10/14/16 19:00 07:00 Intake Total 240 ml 660 ml Balance 240 ml 660 ml Intake Oral 240 ml 660 ml # Voids 3 # Bowel Movements 2 1 Laboratory Tests 10/13/16 08:40: Prothrombin Time 14.3H, Prothromb Time International Ratio 1.4H, Activated Partial Thromboplast Time 29, Sodium Level 136, Potassium Level 4.4, Chloride Level 90L, Carbon Dioxide Level 25, Anion Gap 21H, Blood Urea Nitrogen 39H, Creatinine 5.2H, Estimat Glomerular Filtration Rate 13.7, Glucose Level 83, Calcium Level 9.3 10/14/16 05:35: Sodium Level 134L, Potassium Level 4.1, Chloride Level 91L, Carbon Dioxide Level 25, Anion Gap 18H, Blood Urea Nitrogen 42H, Creatinine 5.8H, Estimat Glomerular Filtration Rate 12.1, Glucose Level 88, Calcium Level 9.0, White Blood Count 7.8, Red Blood Count 2.65L, Hemoglobin 8.3L, Hematocrit 27.5L, Mean Corpuscular Volume 104H, Mean Corpuscular Hemoglobin 31.2H, Mean Corpuscular Hemoglobin Concent 30.1L, Red Cell Distribution Width 24.2H, Platelet Count 345 , Mean Platelet Volume 6.2L, Neutrophils (%) (Auto) 77.5H, Lymphocytes (%) (Auto ) 10.0L, Monocytes (%) (Auto) 8.9, Eosinophils (%) (Auto) 2.4, Basophils (%) ( Auto) 1.1, Total Bilirubin 2.0H, Direct Bilirubin 1.0H, Aspartate Amino Transf ( AST/SGOT) 15, Alanine Aminotransferase (ALT/SGPT) 6, Alkaline Phosphatase 134H, Total Protein 6.2L, Albumin 2.9L, Globulin 3.3, Albumin/Globulin Ratio 0.8L Height (Feet): 5 Height (Inches): 2.00 Weight (Pounds): 73 Objective PHYSICAL EXAMINATION: GENERAL: Alert, awake, and oriented. HEENT: PERRLA. NECK: Range of motion is full in all directions. No tenderness to paracervical muscles. No adenopathy. LUNGS: Decreased breath sounds bilaterally. HEART: S1 and S2, regular. ABDOMEN: Obese. BACK: Range of motion is decreased in flexion and extension with tenderness to paraspinous and trapezius muscles. EXTREMITIES: No cyanosis, no clubbing, edema noted on RUE. NEURO: No changes. Xray of T spine: Impression: T7 compression fracture age indeterminate. ARRON EDWARD. Oct 14, 2016 08:34
[2016-10-14] MEDS: Lisinopril 2.5mg tab ORAL SCH ×4 (08:54→22:31)
[2016-10-14] MEDS: Nephrovite tab ORAL SCH (08:54)
[2016-10-14] MEDS: Analgesic Balm 15gm TOPIC SCH ×5 (08:54→21:51)
--- NOTE | 2016-10-14 10:23 | General Progress Note ---
Assessment/Plan Status: stable Assessment/Plan Status: (1) ESRD (end stage renal disease) on dialysis (2) Chest pain (3) Cocaine abuse (4) Anemia in chronic kidney disease (5) ? DVT right UE (6) Cardiomyopathy: Global left ventricular hypokinesis. Worse septal apper akinetic s. Left ventricular ejection fraction estimated to be 30-35 %. Plan: Next HD Tuesday10/11/16- was held as the permacath is out ! had dialysis access placed 10/12 and dialysed 10/12 HD 10/14 due shortly On marcie inhibitors- per consultants ? DC planning Subjective ROS Limited/Unobtainable: No Constitutional: Reports: malaise, weakness Allergies: Coded Allergies: No Known Allergies (Unverified , 09/28/16) Objective Last 24 Hour Vital Signs Date Time Temp Pulse Resp B/P Pulse Ox O2 Delivery O2 Flow Rate FiO2 10/14/16 08:43 98.2 52 20 110/63 93 Room Air 10/14/16 04:00 97.9 97 18 130/58 97 Room Air 10/14/16 00:00 98.0 105 20 113/68 92 Room Air 10/13/16 21:02 126/56 10/13/16 20:15 96.6 69 20 126/56 99 Room Air 10/13/16 16:00 97.2 47 18 127/90 95 Room Air 10/13/16 12:00 97.8 105 20 133/86 99 Room Air 10/13/16 11:30 90 14 99 Intake and Output 10/13/16 10/14/16 19:00 07:00 Intake Total 240 ml 660 ml Balance 240 ml 660 ml Intake Oral 240 ml 660 ml # Voids 3 # Bowel Movements 2 1 Laboratory Tests 10/14/16 05:35: White Blood Count 7.8, Red Blood Count 2.65L, Hemoglobin 8.3L, Hematocrit 27.5L , Mean Corpuscular Volume 104H, Mean Corpuscular Hemoglobin 31.2H, Mean Corpuscular Hemoglobin Concent 30.1L, Red Cell Distribution Width 24.2H, Platelet Count 345, Mean Platelet Volume 6.2L, Neutrophils (%) (Auto) 77.5H, Lymphocytes (%) (Auto) 10.0L, Monocytes (%) (Auto) 8.9, Eosinophils (%) (Auto) 2.4, Basophils (%) (Auto) 1.1, Sodium Level 134L, Potassium Level 4.1, Chloride Level 91L, Carbon Dioxide Level 25, Anion Gap 18H, Blood Urea Nitrogen 42H, Creatinine 5.8H, Estimat Glomerular Filtration Rate 12.1, Glucose Level 88, Calcium Level 9.0, Total Bilirubin 2.0H, Direct Bilirubin 1.0H, Aspartate Amino Transf (AST/SGOT) 15, Alanine Aminotransferase (ALT/SGPT) 6, Alkaline Phosphatase 134H, Total Protein 6.2L, Albumin 2.9L, Globulin 3.3, Albumin/ Globulin Ratio 0.8L Height (Feet): 5 Height (Inches): 2.00 Weight (Pounds): 73 General Appearance: no apparent distress Objective no change in PE KALEY RIOS Oct 14, 2016 10:23
--- NOTE | 2016-10-14 11:45 | GI Progress Note ---
Assessment/Plan Problems: (1) GIB (gastrointestinal bleeding) ICD Codes: K92.2 - Gastrointestinal hemorrhage, unspecified SNOMED: 60879295 (2) Cocaine abuse ICD Codes: F14.10 - Cocaine abuse, uncomplicated SNOMED: 53415016, 950783703 (3) Anemia in chronic kidney disease ICD Codes: N18.9 - Chronic kidney disease, unspecified; D63.1 - Anemia in chronic kidney disease SNOMED: 730168378, 144511906 (4) Chest pain ICD Codes: R07.9 - Chest pain, unspecified SNOMED: 14068764, [id number] Qualifiers: Qualified Codes: R07.9 - Chest pain, unspecified Status: stable Status Narrative Discussed with Dr. Bal. Assessment/Plan SUMMARY OF FINDINGS: 1. Significant diverticulosis. 2. Two polyps removed, see above for details. 3. Internal hemorrhoids. RECOMMENDATIONS: ok for DC per GI standpoint cardiac diet monitor H&H, transfuse prn PPI fu biopsy for HP repeat colon x 3 years fu labs fu outpatient The patient was seen and examined at bedside and all new and available data was reviewed in the patients chart. I agree with the above findings, impression and plan. (Patient seen earlier today. Signature stamp does not reflect patient encounter time.). -Warner Bal MD Subjective Subjective denies any symptoms Objective Last 24 Hour Vital Signs Date Time Temp Pulse Resp B/P Pulse Ox O2 Delivery O2 Flow Rate FiO2 10/14/16 08:43 98.2 52 20 110/63 93 Room Air 10/14/16 04:00 97.9 97 18 130/58 97 Room Air 10/14/16 00:00 98.0 105 20 113/68 92 Room Air 10/13/16 21:02 126/56 10/13/16 20:15 96.6 69 20 126/56 99 Room Air 10/13/16 16:00 97.2 47 18 127/90 95 Room Air 10/13/16 12:00 97.8 105 20 133/86 99 Room Air Intake and Output 10/13/16 10/14/16 19:00 07:00 Intake Total 240 ml 660 ml Balance 240 ml 660 ml Intake Oral 240 ml 660 ml # Voids 3 # Bowel Movements 2 1 Laboratory Tests Test 10/14/16 05:35 White Blood Count 7.8 K/UL (4.8-10.8) Red Blood Count 2.65 M/UL (4.70-6.10) L Hemoglobin 8.3 G/DL (14.2-18.0) L Hematocrit 27.5 % (42.0-52.0) L Mean Corpuscular Volume 104 FL (80-99) H Mean Corpuscular Hemoglobin 31.2 PG (27.0-31.0) H Mean Corpuscular Hemoglobin Concent 30.1 G/DL (32.0-36.0) L Red Cell Distribution Width 24.2 % (11.6-14.8) H Platelet Count 345 K/UL (150-450) Mean Platelet Volume 6.2 FL (6.5-10.1) L Neutrophils (%) (Auto) 77.5 % (45.0-75.0) H Lymphocytes (%) (Auto) 10.0 % (20.0-45.0) L Monocytes (%) (Auto) 8.9 % (1.0-10.0) Eosinophils (%) (Auto) 2.4 % (0.0-3.0) Basophils (%) (Auto) 1.1 % (0.0-2.0) Sodium Level 134 mEQ/L (135-145) L Potassium Level 4.1 mEQ/L (3.4-4.9) Chloride Level 91 mEQ/L (98-107) L Carbon Dioxide Level 25 mEQ/L (20-30) Anion Gap 18 (5-15) H Blood Urea Nitrogen 42 mg/dL (7-23) H Creatinine 5.8 mg/dL (0.7-1.2) H Estimat Glomerular Filtration Rate 12.1 mL/min (>60) Glucose Level 88 mg/dL (74-106) Calcium Level 9.0 mg/dL (8.6-10.2) Total Bilirubin 2.0 mg/dL (0.0-1.2) H Direct Bilirubin 1.0 mg/dL (0.1-0.3) H Aspartate Amino Transf (AST/SGOT) 15 U/L (5-40) Alanine Aminotransferase (ALT/SGPT) 6 U/L (3-41) Alkaline Phosphatase 134 U/L (40-129) H Total Protein 6.2 g/dL (6.6-8.7) L Albumin 2.9 g/dL (3.5-5.2) L Globulin 3.3 g/dL Albumin/Globulin Ratio 0.8 (1.0-2.7) L Height (Feet): 5 Height (Inches): 2.00 Weight (Pounds): 73 General Appearance: no apparent distress, alert Cardiovascular: normal rate Respiratory/Chest: normal breath sounds, no respiratory distress Abdominal Exam: normal bowel sounds, non tender Sole Lucio N.PTanvir Oct 14, 2016 11:44 WARNER BAL Oct 14, 2016 14:04
--- NOTE | 2016-10-14 12:53 | General Progress Note ---
Assessment/Plan Problem List: (1) Cocaine abuse ICD Codes: F14.10 - Cocaine abuse, uncomplicated SNOMED: 57332214, 043863995 (2) Chest pain ICD Codes: R07.9 - Chest pain, unspecified SNOMED: 07530159, 147768081 Qualifiers: Qualified Codes: R07.9 - Chest pain, unspecified Status: progressing Assessment/Plan afebrile no cp no bleeding vitals stable no source of bleeding check h/h Subjective ROS Limited/Unobtainable: Yes Constitutional: Reports: no symptoms Allergies: Coded Allergies: No Known Allergies (Unverified , 09/28/16) Objective Last 24 Hour Vital Signs Date Time Temp Pulse Resp B/P Pulse Ox O2 Delivery O2 Flow Rate FiO2 10/14/16 12:06 98.0 98 20 114/67 97 Room Air 10/14/16 08:43 98.2 52 20 110/63 93 Room Air 10/14/16 04:00 97.9 97 18 130/58 97 Room Air 10/14/16 00:00 98.0 105 20 113/68 92 Room Air 10/13/16 21:02 126/56 10/13/16 20:15 96.6 69 20 126/56 99 Room Air 10/13/16 16:00 97.2 47 18 127/90 95 Room Air Intake and Output 10/13/16 10/14/16 19:00 07:00 Intake Total 240 ml 660 ml Balance 240 ml 660 ml Intake Oral 240 ml 660 ml # Voids 3 # Bowel Movements 2 1 Laboratory Tests 10/14/16 05:35: White Blood Count 7.8, Red Blood Count 2.65L, Hemoglobin 8.3L, Hematocrit 27.5L , Mean Corpuscular Volume 104H, Mean Corpuscular Hemoglobin 31.2H, Mean Corpuscular Hemoglobin Concent 30.1L, Red Cell Distribution Width 24.2H, Platelet Count 345, Mean Platelet Volume 6.2L, Neutrophils (%) (Auto) 77.5H, Lymphocytes (%) (Auto) 10.0L, Monocytes (%) (Auto) 8.9, Eosinophils (%) (Auto) 2.4, Basophils (%) (Auto) 1.1, Sodium Level 134L, Potassium Level 4.1, Chloride Level 91L, Carbon Dioxide Level 25, Anion Gap 18H, Blood Urea Nitrogen 42H, Creatinine 5.8H, Estimat Glomerular Filtration Rate 12.1, Glucose Level 88, Calcium Level 9.0, Total Bilirubin 2.0H, Direct Bilirubin 1.0H, Aspartate Amino Transf (AST/SGOT) 15, Alanine Aminotransferase (ALT/SGPT) 6, Alkaline Phosphatase 134H, Total Protein 6.2L, Albumin 2.9L, Globulin 3.3, Albumin/ Globulin Ratio 0.8L Height (Feet): 5 Height (Inches): 2.00 Weight (Pounds): 73 EENT: PERRL/EOMI Cardiovascular: normal rate Respiratory/Chest: lungs clear Abdomen: soft Liu Elizondo MD Oct 14, 2016 12:53
[2016-10-14] MEDS: traMADol 50mg tab ORAL PRN (14:21)
--- NOTE | 2016-10-14 16:54 | General Progress Note ---
Assessment/Plan Assessment/Plan ASSESSMENT: 1. Anemia secondary to end-stage renal disease. Ferritin is 711. Is on epogen and HD prn 2. Acute drop in hgb, consider GI bleed, has been cleared by cards, pending colo 3. Thrombocytopenia potentially secondary to underlying infection. hep and hiv - , now improved 4. Coagulopathy INR is 1.2, improved 5. Diabetes mellitus. 6. End-stage renal disease on hemodialysis. 7. Cocaine use history. RECOMMENDATIONS: 1. Monitor counts. 2. Transfuse if hemoglobin less than 7.5. 3. Continue epogen 4. Followup GI recs - now s/p colo 5. Ultrasound of the abdomen reviewed 6. Anemia workup has reviewed 7. Followup on Nephrology, Pulmonary, GI, Cards recs 8. Transfuse if plts <20k 9. DVT prophylaxis with scds 10. GI prophylaxis ppi 11. Pain control. 12. staff. Thank you, Hugh Lopez MD Subjective Constitutional: Reports: no symptoms Cardiovascular: Reports: no symptoms Respiratory: Reports: no symptoms Gastrointestinal/Abdominal: Reports: poor appetite Genitourinary: Reports: no symptoms 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: Reports: no symptoms Endocrine: Reports: no symptoms Hematologic/Lymphatic: Reports: anemia Allergies: Coded Allergies: No Known Allergies (Unverified , 09/28/16) Subjective awake, pain better controlled, no complaints, not bleeding Objective Last 24 Hour Vital Signs Date Time Temp Pulse Resp B/P Pulse Ox O2 Delivery O2 Flow Rate FiO2 10/14/16 16:10 97.7 80 16 111/56 94 Room Air 10/14/16 15:20 98.0 10/14/16 13:30 Room Air 10/14/16 13:30 98.1 90 18 119/65 98 Room Air 10/14/16 12:06 98.0 98 20 114/67 97 Room Air 10/14/16 08:43 98.2 52 20 110/63 93 Room Air 10/14/16 04:00 97.9 97 18 130/58 97 Room Air 10/14/16 00:00 98.0 105 20 113/68 92 Room Air 10/13/16 21:02 126/56 10/13/16 20:15 96.6 69 20 126/56 99 Room Air Intake and Output 10/13/16 10/14/16 19:00 07:00 Intake Total 240 ml 660 ml Balance 240 ml 660 ml Intake Oral 240 ml 660 ml # Voids 3 # Bowel Movements 2 1 Laboratory Tests 10/14/16 05:35: White Blood Count 7.8, Red Blood Count 2.65L, Hemoglobin 8.3L, Hematocrit 27.5L , Mean Corpuscular Volume 104H, Mean Corpuscular Hemoglobin 31.2H, Mean Corpuscular Hemoglobin Concent 30.1L, Red Cell Distribution Width 24.2H, Platelet Count 345, Mean Platelet Volume 6.2L, Neutrophils (%) (Auto) 77.5H, Lymphocytes (%) (Auto) 10.0L, Monocytes (%) (Auto) 8.9, Eosinophils (%) (Auto) 2.4, Basophils (%) (Auto) 1.1, Sodium Level 134L, Potassium Level 4.1, Chloride Level 91L, Carbon Dioxide Level 25, Anion Gap 18H, Blood Urea Nitrogen 42H, Creatinine 5.8H, Estimat Glomerular Filtration Rate 12.1, Glucose Level 88, Calcium Level 9.0, Total Bilirubin 2.0H, Direct Bilirubin 1.0H, Aspartate Amino Transf (AST/SGOT) 15, Alanine Aminotransferase (ALT/SGPT) 6, Alkaline Phosphatase 134H, Total Protein 6.2L, Albumin 2.9L, Globulin 3.3, Albumin/ Globulin Ratio 0.8L Height (Feet): 5 Height (Inches): 2.00 Weight (Pounds): 73 General Appearance: no apparent distress EENT: TMs normal Neck: supple Cardiovascular: normal rate Respiratory/Chest: normal breath sounds Abdomen: non tender Extremities: non-tender Edema: 1+ Leg (L), 1+ Leg (R) Edema: mild edema Neurologic: alert Skin: warm/dry Hugh Lopez Oct 14, 2016 16:53
--- NOTE | 2016-10-14 17:01 | Infectious Diseases Prog Note ---
Assessment/Plan Problems: (1) Colonization with VRE (vancomycin-resistant enterococcus) Assessment & Plan: keep in contact isolation (2) ESRD (end stage renal disease) on dialysis Assessment & Plan: continue HD as per renal. (3) Cocaine abuse Assessment & Plan: recommend counseling and rehab (4) Chest pain Assessment & Plan: had stress test , cardiology is following (5) Anemia in chronic kidney disease Assessment & Plan: stable, monitor H/H transfuse as needed (6) GIB (gastrointestinal bleeding) Assessment & Plan: monitor H/H transfuse blood as needed Subjective Constitutional: Reports: no symptoms HEENT: Reports: no symptoms Respiratory: Reports: no symptoms Breasts: Reports: no symptoms Cardiovascular: Reports: no symptoms Gastrointestinal/Abdominal: Reports: no symptoms Genitourinary: Reports: no symptoms Neurologic: Reports: no symptoms Psychiatric: Reports: no symptoms Skin: Reports: no symptoms Endocrine: Reports: no symptoms Hematologic: Reports: no symptoms Musculoskeletal: Reports: no symptoms Allergies: Coded Allergies: No Known Allergies (Unverified , 09/28/16) Subjective he was doing well today, denied any symptoms. Objective Vital Signs Last 24 Hour Vital Signs Date Time Temp Pulse Resp B/P Pulse Ox O2 Delivery O2 Flow Rate FiO2 10/14/16 16:10 97.7 80 16 111/56 94 Room Air 10/14/16 15:20 98.0 10/14/16 13:30 Room Air 10/14/16 13:30 98.1 90 18 119/65 98 Room Air 10/14/16 12:06 98.0 98 20 114/67 97 Room Air 10/14/16 08:43 98.2 52 20 110/63 93 Room Air 10/14/16 04:00 97.9 97 18 130/58 97 Room Air 10/14/16 00:00 98.0 105 20 113/68 92 Room Air 10/13/16 21:02 126/56 10/13/16 20:15 96.6 69 20 126/56 99 Room Air Height (Feet): 5 Height (Inches): 2.00 Weight (Pounds): 73 General Appearance: WD/WN, no acute distress HEENT: normocephalic, atraumatic, anicteric, mucous membranes moist Respiratory/Chest: chest wall non-tender, lungs clear, normal breath sounds, no respiratory distress, no accessory muscle use Cardiovascular: normal peripheral pulses, normal rate, regular rhythm, no gallop/murmur Abdomen: normal bowel sounds, soft, non tender, no organomegaly, non distended , no mass Extremities: no cyanosis, no clubbing Skin: no rash, no lesions, no ulcers Laboratory Tests Test 10/14/16 05:35 White Blood Count 7.8 K/UL (4.8-10.8) Red Blood Count 2.65 M/UL (4.70-6.10) L Hemoglobin 8.3 G/DL (14.2-18.0) L Hematocrit 27.5 % (42.0-52.0) L Mean Corpuscular Volume 104 FL (80-99) H Mean Corpuscular Hemoglobin 31.2 PG (27.0-31.0) H Mean Corpuscular Hemoglobin Concent 30.1 G/DL (32.0-36.0) L Red Cell Distribution Width 24.2 % (11.6-14.8) H Platelet Count 345 K/UL (150-450) Mean Platelet Volume 6.2 FL (6.5-10.1) L Neutrophils (%) (Auto) 77.5 % (45.0-75.0) H Lymphocytes (%) (Auto) 10.0 % (20.0-45.0) L Monocytes (%) (Auto) 8.9 % (1.0-10.0) Eosinophils (%) (Auto) 2.4 % (0.0-3.0) Basophils (%) (Auto) 1.1 % (0.0-2.0) Sodium Level 134 mEQ/L (135-145) L Potassium Level 4.1 mEQ/L (3.4-4.9) Chloride Level 91 mEQ/L (98-107) L Carbon Dioxide Level 25 mEQ/L (20-30) Anion Gap 18 (5-15) H Blood Urea Nitrogen 42 mg/dL (7-23) H Creatinine 5.8 mg/dL (0.7-1.2) H Estimat Glomerular Filtration Rate 12.1 mL/min (>60) Glucose Level 88 mg/dL (74-106) Calcium Level 9.0 mg/dL (8.6-10.2) Total Bilirubin 2.0 mg/dL (0.0-1.2) H Direct Bilirubin 1.0 mg/dL (0.1-0.3) H Aspartate Amino Transf (AST/SGOT) 15 U/L (5-40) Alanine Aminotransferase (ALT/SGPT) 6 U/L (3-41) Alkaline Phosphatase 134 U/L (40-129) H Total Protein 6.2 g/dL (6.6-8.7) L Albumin 2.9 g/dL (3.5-5.2) L Globulin 3.3 g/dL Albumin/Globulin Ratio 0.8 (1.0-2.7) L Current Medications Medications (Trade) Dose Ordered Sig/Lillian Route PRN Reason Start Time Stop Time Status Last Admin Dose Admin Acetaminophen (Tylenol) 650 mg Q4H PRN ORAL Fever 10/06/16 15:30 11/05/16 15:29 10/10/16 06:37 Dextrose (Dextrose 50%) STAT PRN IV Hypoglycemia 10/06/16 19:30 11/05/16 19:29 Epoetin Joseph (Procrit (for ESRD on dialysis)) 5,000 units TUE-TUE-TUE SUBQ 10/06/16 21:00 11/05/16 20:59 10/13/16 22:30 Insulin Aspart (NovoLOG) BEFORE MEALS AND HS SUBQ 10/06/16 16:30 11/05/16 16:29 Lidocaine (Lidoderm 5% PATCH) 1 patch DAILY TDERMAL 10/07/16 09:00 11/06/16 08:59 10/14/16 08:54 Lisinopril (Zestril) 2.5 mg Q12HR ORAL 10/06/16 21:00 11/05/16 20:59 10/13/16 21:02 Menthol/Methyl Salicylate (Bengay) 1 applic FOUR TIMES A DAY TOPIC 10/10/16 13:00 11/09/16 12:59 10/14/16 11:54 Ondansetron HCl (Zofran) 4 mg Q6H PRN IVP Nausea & Vomiting 10/06/16 13:30 11/05/16 13:29 Pantoprazole (Protonix) 40 mg ACBREAKFAST ORAL 10/09/16 06:30 11/06/16 08:59 10/14/16 06:31 Polyethylene Glycol (Miralax) 17 gm DAILYPRN PRN ORAL Constipation 10/06/16 19:30 11/05/16 19:29 10/12/16 21:13 Temazepam (Restoril) 15 mg HSPRN PRN ORAL Insomnia 10/14/16 08:15 10/21/16 08:14 Tramadol HCl (Ultram) 50 mg Q4H PRN ORAL moderate to severe pain 10/14/16 08:15 10/21/16 08:14 10/14/16 14:21 Vitamin B Complex/ Vit C/Folic Acid (Nephrovite) 1 tab DAILY ORAL 10/07/16 09:00 11/06/16 08:59 10/14/16 08:54 Ivania Bhardwaj M.D. Oct 14, 2016 17:01
--- NOTE | 2016-10-14 18:28 | Cardiac Electrophysiology PN ---
Assessment/Plan Status Narrative Moderate left ventricular enlargement. Global left ventricular hypokinesis. Worse septal apper akinetic s. Left ventricular ejection fraction estimated to be 30-35 %. No evidence of left ventricular hypertrophy. No evidence of pericardial fat or effusion. Severe right atrial enlargement by 2D. Mild right atrial enlargement by 2D. Focal aortic valve sclerosis with adequate cusp excursion Mildly thickened mitral valve leaflets with normal excursion. Mitral annulus and aortic root calcification. Pulmonic valve is well visualized. Normal tricuspid valve structure. IVC dilated at 2.7cm no physiologic collapse with respiration.RA pressure of 20mmHg. Assessment/Plan 1. Chest pain due to cocaine vasospasm. Ruled out for myocardial infarction. Avoid beta-david in view of cocaine use. Nuclear stress test showed no significant ischemia. 2. Severe Cardiomyopathy with EF 30-35%. Avoid Beta david for cocaine use. On Lisinopril 2.5 bid and dialysis. 3. History of hypertension. On Lisinopril 2.5 bid. 4. End-stage renal disease, on hemodialysis. 5. Substance abuse with cocaine. 6. Anemia due to GI bleed. Stool OB positive. S/P EGD.Refused Colonoscopy. 7. Diabetes. ZOHREH RN Off tele. OK to transfer Subjective Subjective No chest pain or SOB. Objective Last 24 Hour Vital Signs Date Time Temp Pulse Resp B/P Pulse Ox O2 Delivery O2 Flow Rate FiO2 10/14/16 16:30 98.0 93 16 111/60 96 Room Air 10/14/16 16:30 Room Air 10/14/16 16:10 97.7 80 16 111/56 94 Room Air 10/14/16 15:20 98.0 10/14/16 13:30 Room Air 10/14/16 13:30 98.1 90 18 119/65 98 Room Air 10/14/16 12:06 98.0 98 20 114/67 97 Room Air 10/14/16 08:43 98.2 52 20 110/63 93 Room Air 10/14/16 04:00 97.9 97 18 130/58 97 Room Air 10/14/16 00:00 98.0 105 20 113/68 92 Room Air 10/13/16 21:02 126/56 10/13/16 20:15 96.6 69 20 126/56 99 Room Air Intake and Output 10/13/16 10/14/16 19:00 07:00 Intake Total 240 ml 660 ml Balance 240 ml 660 ml Intake Oral 240 ml 660 ml # Voids 3 # Bowel Movements 2 1 Laboratory Tests Test 10/14/16 05:35 White Blood Count 7.8 K/UL (4.8-10.8) Red Blood Count 2.65 M/UL (4.70-6.10) L Hemoglobin 8.3 G/DL (14.2-18.0) L Hematocrit 27.5 % (42.0-52.0) L Mean Corpuscular Volume 104 FL (80-99) H Mean Corpuscular Hemoglobin 31.2 PG (27.0-31.0) H Mean Corpuscular Hemoglobin Concent 30.1 G/DL (32.0-36.0) L Red Cell Distribution Width 24.2 % (11.6-14.8) H Platelet Count 345 K/UL (150-450) Mean Platelet Volume 6.2 FL (6.5-10.1) L Neutrophils (%) (Auto) 77.5 % (45.0-75.0) H Lymphocytes (%) (Auto) 10.0 % (20.0-45.0) L Monocytes (%) (Auto) 8.9 % (1.0-10.0) Eosinophils (%) (Auto) 2.4 % (0.0-3.0) Basophils (%) (Auto) 1.1 % (0.0-2.0) Sodium Level 134 mEQ/L (135-145) L Potassium Level 4.1 mEQ/L (3.4-4.9) Chloride Level 91 mEQ/L (98-107) L Carbon Dioxide Level 25 mEQ/L (20-30) Anion Gap 18 (5-15) H Blood Urea Nitrogen 42 mg/dL (7-23) H Creatinine 5.8 mg/dL (0.7-1.2) H Estimat Glomerular Filtration Rate 12.1 mL/min (>60) Glucose Level 88 mg/dL (74-106) Calcium Level 9.0 mg/dL (8.6-10.2) Total Bilirubin 2.0 mg/dL (0.0-1.2) H Direct Bilirubin 1.0 mg/dL (0.1-0.3) H Aspartate Amino Transf (AST/SGOT) 15 U/L (5-40) Alanine Aminotransferase (ALT/SGPT) 6 U/L (3-41) Alkaline Phosphatase 134 U/L (40-129) H Total Protein 6.2 g/dL (6.6-8.7) L Albumin 2.9 g/dL (3.5-5.2) L Globulin 3.3 g/dL Albumin/Globulin Ratio 0.8 (1.0-2.7) L Objective HEAD AND NECK: No jugular venous distention or carotid bruits. LUNGS: Clear. CARDIOVASCULAR: Regular S1 and S2 with no gallop or murmur. ABDOMEN: Soft and nontender. EXTREMITIES: No pitting edema. Dialysis access in the right chest. DILIA GUERRERO Oct 14, 2016 18:28
--- NOTE | 2016-10-14 18:33 | Pulmonology Progress Note ---
Assessment/Plan Problems: (1) Chest pain Assessment & Plan: stress study was negative (2) Acute respiratory failure Assessment & Plan: improved (3) Anemia in chronic kidney disease (4) ESRD (end stage renal disease) on dialysis (5) Fluid overload (6) Cocaine abuse (7) Back pain Assessment/Plan Hd access fell off, Needs a new access cardiac evaluation appreciated HD as needed med/surg if ok with Cardio Subjective ROS Limited/Unobtainable: No Cardiovascular: Reports: chest pain Allergies: Coded Allergies: No Known Allergies (Unverified , 09/28/16) Objective Last 24 Hour Vital Signs Date Time Temp Pulse Resp B/P Pulse Ox O2 Delivery O2 Flow Rate FiO2 10/14/16 16:30 98.0 93 16 111/60 96 Room Air 10/14/16 16:30 Room Air 10/14/16 16:10 97.7 80 16 111/56 94 Room Air 10/14/16 15:20 98.0 10/14/16 13:30 Room Air 10/14/16 13:30 98.1 90 18 119/65 98 Room Air 10/14/16 12:06 98.0 98 20 114/67 97 Room Air 10/14/16 08:43 98.2 52 20 110/63 93 Room Air 10/14/16 04:00 97.9 97 18 130/58 97 Room Air 10/14/16 00:00 98.0 105 20 113/68 92 Room Air 10/13/16 21:02 126/56 10/13/16 20:15 96.6 69 20 126/56 99 Room Air Intake and Output 10/13/16 10/14/16 19:00 07:00 Intake Total 240 ml 660 ml Balance 240 ml 660 ml Intake Oral 240 ml 660 ml # Voids 3 # Bowel Movements 2 1 General Appearance: no acute distress HEENT: normocephalic, atraumatic, PERRL Respiratory/Chest: chest wall non-tender, decreased breath sounds, accessory muscle use Cardiovascular: normal peripheral pulses, normal rate, regular rhythm, no JVD Abdomen: normal bowel sounds, soft, non tender, no organomegaly Genitourinary: normal external genitalia Extremities: no cyanosis 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: levi maker II-XII grossly normal, no motor/sensory deficits Laboratory Tests 10/14/16 05:35: White Blood Count 7.8, Red Blood Count 2.65L, Hemoglobin 8.3L, Hematocrit 27.5L , Mean Corpuscular Volume 104H, Mean Corpuscular Hemoglobin 31.2H, Mean Corpuscular Hemoglobin Concent 30.1L, Red Cell Distribution Width 24.2H, Platelet Count 345, Mean Platelet Volume 6.2L, Neutrophils (%) (Auto) 77.5H, Lymphocytes (%) (Auto) 10.0L, Monocytes (%) (Auto) 8.9, Eosinophils (%) (Auto) 2.4, Basophils (%) (Auto) 1.1, Sodium Level 134L, Potassium Level 4.1, Chloride Level 91L, Carbon Dioxide Level 25, Anion Gap 18H, Blood Urea Nitrogen 42H, Creatinine 5.8H, Estimat Glomerular Filtration Rate 12.1, Glucose Level 88, Calcium Level 9.0, Total Bilirubin 2.0H, Direct Bilirubin 1.0H, Aspartate Amino Transf (AST/SGOT) 15, Alanine Aminotransferase (ALT/SGPT) 6, Alkaline Phosphatase 134H, Total Protein 6.2L, Albumin 2.9L, Globulin 3.3, Albumin/ Globulin Ratio 0.8L Current Medications Medications (Trade) Dose Ordered Sig/Lillian Route PRN Reason Start Time Stop Time Status Last Admin Dose Admin Acetaminophen (Tylenol) 650 mg Q4H PRN ORAL Fever 10/06/16 15:30 11/05/16 15:29 10/10/16 06:37 Dextrose (Dextrose 50%) STAT PRN IV Hypoglycemia 10/06/16 19:30 11/05/16 19:29 Epoetin Joseph (Procrit (for ESRD on dialysis)) 5,000 units TUE-TUE-TUE SUBQ 10/06/16 21:00 11/05/16 20:59 10/13/16 22:30 Insulin Aspart (NovoLOG) BEFORE MEALS AND HS SUBQ 10/06/16 16:30 11/05/16 16:29 Lidocaine (Lidoderm 5% PATCH) 1 patch DAILY TDERMAL 10/07/16 09:00 11/06/16 08:59 10/14/16 08:54 Lisinopril (Zestril) 2.5 mg Q12HR ORAL 10/06/16 21:00 11/05/16 20:59 10/13/16 21:02 Menthol/Methyl Salicylate (Bengay) 1 applic FOUR TIMES A DAY TOPIC 10/10/16 13:00 11/09/16 12:59 10/14/16 11:54 Ondansetron HCl (Zofran) 4 mg Q6H PRN IVP Nausea & Vomiting 10/06/16 13:30 11/05/16 13:29 Pantoprazole (Protonix) 40 mg ACBREAKFAST ORAL 10/09/16 06:30 11/06/16 08:59 10/14/16 06:31 Polyethylene Glycol (Miralax) 17 gm DAILYPRN PRN ORAL Constipation 10/06/16 19:30 11/05/16 19:29 10/12/16 21:13 Temazepam (Restoril) 15 mg HSPRN PRN ORAL Insomnia 10/14/16 08:15 10/21/16 08:14 Tramadol HCl (Ultram) 50 mg Q4H PRN ORAL moderate to severe pain 10/14/16 08:15 10/21/16 08:14 10/14/16 14:21 Vitamin B Complex/ Vit C/Folic Acid (Nephrovite) 1 tab DAILY ORAL 10/07/16 09:00 11/06/16 08:59 10/14/16 08:54 CARLOS ALBERTO HERMAN Oct 14, 2016 18:33
[2016-10-15] VITALS: BP 109/57
[2016-10-15 04:00] VITALS: BP_SYST 110; BP_SYST 114; BP_DIAS 48; BP_DIAS 76
[2016-10-15] MEDS: NovoLOG Insulin Flexpen SUBQ SCH ×4 (06:10→21:00)
[2016-10-15 08:00] VITALS: BP 115/62
[2016-10-15] MEDS: Nephrovite tab ORAL SCH (08:44)
--- NOTE | 2016-10-15 09:30 | Pulmonology Progress Note ---
Assessment/Plan Assessment/Plan ASSESSMENT atypical chest pain ( after cocaine abuse) 2 to vasospasm severe cardiomyopathy moderate pulmonary HTN severe MR severe TR acute anemia 2 to GI bleeding and anemia of chronic disease s/p blood transfusion s/p EGD and colonoscopy ESRD, on HD HTN DM cocaine abuse T 7 vertebral compression fracture PLAN OF CARE [facility] floor serial troponin negative, cardio follows, ruled out for ACS CP after cocaine abuse due to vasospasm -as per cardio, ECHO with EF 30-35%, severe MR and TR, RVSP of 50 c/w moderate pulmonary HTN stress test no significant ischemia as per cardio O2 HHN prn CXR with cardiomegaly, CHF BP management with CCB ,avoid BB due to cocaine use BS management with SS of insulin stool OB + x 3 GI follows s/p EGD and colon with findings of diverticulosis, 2 polyps, s/p biopsy, internal hemorrhoids gastric biopsy no H pylori, no dysplasia, no metaplasia PPI heme follows stool OB + x 3 monitor HH, transfuse prn , remains in baseline on EPO, continue HD as per nephro hepatitis panel negative Abdominal US + ascites MTI T spine -positive for acute or subacute T7 vertebral body compression fracture, pain management, pain specialist follows Venous Duplex RUE negative 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 on avoidance of cocaine DVT, GI prophylaxis case discussed and evaluated by supervising physician Subjective Allergies: Coded Allergies: No Known Allergies (Unverified , 09/28/16) Subjective afebrile, no leucocytosis on RA no signs of respiratory distress denies dizziness, blackout no SOB, no chest pain s/p EGD and colon, HH stable Objective Last 24 Hour Vital Signs Date Time Temp Pulse Resp B/P Pulse Ox O2 Delivery O2 Flow Rate FiO2 10/15/16 04:00 96.6 89 19 110/76 95 Room Air 10/15/16 00:00 97.3 92 20 109/57 98 Room Air 10/14/16 21:00 105/63 10/14/16 21:00 105/63 10/14/16 20:00 97.0 85 14 105/63 96 Room Air 10/14/16 16:30 98.0 93 16 111/60 96 Room Air 10/14/16 16:30 Room Air 10/14/16 16:10 97.7 80 16 111/56 94 Room Air 10/14/16 15:20 98.0 10/14/16 13:30 Room Air 10/14/16 13:30 98.1 90 18 119/65 98 Room Air 10/14/16 12:06 98.0 98 20 114/67 97 Room Air Intake and Output 10/14/16 10/15/16 19:00 07:00 Intake Total 600 ml 640 ml Output Total 2340 ml Balance -1740 ml 640 ml Intake Oral 600 ml 640 ml Hemodialysis UF 2340 ml # Voids 1 1 # Bowel Movements 1 Objective General Appearance: WD/WN, no acute distress HEENT: normocephalic, atraumatic, anicteric Respiratory/Chest: chest wall non-tender, lungs clear with moderate air entry Cardiovascular: normal rate, regular rhythm Abdomen: normal bowel sounds, soft, non tender Extremities: no edema, pedal pulses normal 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: no motor/sensory deficits, alert, oriented x 3, responsive Musculoskeletal: normal muscle bulk Current Medications Medications (Trade) Dose Ordered Sig/Lillian Route PRN Reason Start Time Stop Time Status Last Admin Dose Admin Acetaminophen (Tylenol) 650 mg Q4H PRN ORAL Fever 10/06/16 15:30 11/05/16 15:29 10/10/16 06:37 Dextrose (Dextrose 50%) STAT PRN IV Hypoglycemia 10/06/16 19:30 11/05/16 19:29 Epoetin Joseph (Procrit (for ESRD on dialysis)) 5,000 units MON-WED-FRI SUBQ 10/06/16 21:00 11/05/16 20:59 10/13/16 22:30 Insulin Aspart (NovoLOG) BEFORE MEALS AND HS SUBQ 10/06/16 16:30 11/05/16 16:29 Lidocaine (Lidoderm 5% PATCH) 1 patch DAILY TDERMAL 10/07/16 09:00 11/06/16 08:59 10/15/16 08:44 Lisinopril (Zestril) 2.5 mg Q12HR ORAL 10/06/16 21:00 11/05/16 20:59 10/13/16 21:02 Menthol/Methyl Salicylate (Bengay) 1 applic FOUR TIMES A DAY TOPIC 10/10/16 13:00 11/09/16 12:59 10/14/16 18:34 Ondansetron HCl (Zofran) 4 mg Q6H PRN IVP Nausea & Vomiting 10/06/16 13:30 11/05/16 13:29 Pantoprazole (Protonix) 40 mg ACBREAKFAST ORAL 10/09/16 06:30 11/06/16 08:59 10/15/16 05:45 Polyethylene Glycol (Miralax) 17 gm DAILYPRN PRN ORAL Constipation 10/06/16 19:30 11/05/16 19:29 10/12/16 21:13 Temazepam (Restoril) 15 mg HSPRN PRN ORAL Insomnia 10/14/16 08:15 10/21/16 08:14 Tramadol HCl (Ultram) 50 mg Q4H PRN ORAL moderate to severe pain 10/14/16 08:15 10/21/16 08:14 10/14/16 14:21 Vitamin B Complex/ Vit C/Folic Acid (Nephrovite) 1 tab DAILY ORAL 10/07/16 09:00 11/06/16 08:59 10/15/16 08:44 [facility])Kate NP Oct 15, 2016 09:30
--- NOTE | 2016-10-15 09:51 | Cardiac Electrophysiology PN ---
Assessment/Plan Status Narrative Moderate left ventricular enlargement. Global left ventricular hypokinesis. Worse septal apper akinetic s. Left ventricular ejection fraction estimated to be 30-35 %. No evidence of left ventricular hypertrophy. No evidence of pericardial fat or effusion. Severe right atrial enlargement by 2D. Mild right atrial enlargement by 2D. Focal aortic valve sclerosis with adequate cusp excursion Mildly thickened mitral valve leaflets with normal excursion. Mitral annulus and aortic root calcification. Pulmonic valve is well visualized. Normal tricuspid valve structure. IVC dilated at 2.7cm no physiologic collapse with respiration.RA pressure of 20mmHg. Assessment/Plan 1. Chest pain due to cocaine vasospasm. Ruled out for myocardial infarction. Nuclear stress test showed no significant ischemia.Avoid beta-david in view of cocaine use. 2. Severe Cardiomyopathy with EF 30-35%. Avoid Beta david for cocaine use. On Lisinopril 2.5 bid and dialysis. 3. History of hypertension. On Lisinopril 2.5 bid. 4. End-stage renal disease, on hemodialysis. 5. Substance abuse with cocaine. 6. Anemia due to GI bleed. Stool OB positive. S/P EGD and colonoscopy that showed significant diverticulosis, Two polyps removed and Internal hemorrhoid per Dr Bal 7. Diabetes. DW RN Subjective Subjective Feeling better. No chest pain or SOB.Had dialysis yesterday. RN at bedside. Objective Last 24 Hour Vital Signs Date Time Temp Pulse Resp B/P Pulse Ox O2 Delivery O2 Flow Rate FiO2 10/15/16 08:00 97.9 87 18 115/62 96 Room Air 10/15/16 04:00 96.6 89 19 110/76 95 Room Air 10/15/16 00:00 97.3 92 20 109/57 98 Room Air 10/14/16 21:00 105/63 10/14/16 21:00 105/63 10/14/16 20:00 97.0 85 14 105/63 96 Room Air 10/14/16 16:30 98.0 93 16 111/60 96 Room Air 10/14/16 16:30 Room Air 10/14/16 16:10 97.7 80 16 111/56 94 Room Air 10/14/16 15:20 98.0 10/14/16 13:30 Room Air 10/14/16 13:30 98.1 90 18 119/65 98 Room Air 10/14/16 12:06 98.0 98 20 114/67 97 Room Air Intake and Output 10/14/16 10/15/16 19:00 07:00 Intake Total 600 ml 640 ml Output Total 2340 ml Balance -1740 ml 640 ml Intake Oral 600 ml 640 ml Hemodialysis UF 2340 ml # Voids 1 1 # Bowel Movements 1 Labs Test 10/14/16 05:35 White Blood Count 7.8 K/UL (4.8-10.8) Red Blood Count 2.65 M/UL (4.70-6.10) Hemoglobin 8.3 G/DL (14.2-18.0) Hematocrit 27.5 % (42.0-52.0) Mean Corpuscular Volume 104 FL (80-99) Mean Corpuscular Hemoglobin 31.2 PG (27.0-31.0) Mean Corpuscular Hemoglobin Concent 30.1 G/DL (32.0-36.0) Red Cell Distribution Width 24.2 % (11.6-14.8) Platelet Count 345 K/UL (150-450) Mean Platelet Volume 6.2 FL (6.5-10.1) Neutrophils (%) (Auto) 77.5 % (45.0-75.0) Lymphocytes (%) (Auto) 10.0 % (20.0-45.0) Monocytes (%) (Auto) 8.9 % (1.0-10.0) Eosinophils (%) (Auto) 2.4 % (0.0-3.0) Basophils (%) (Auto) 1.1 % (0.0-2.0) Sodium Level 134 mEQ/L (135-145) Potassium Level 4.1 mEQ/L (3.4-4.9) Chloride Level 91 mEQ/L (98-107) Carbon Dioxide Level 25 mEQ/L (20-30) Anion Gap 18 (5-15) Blood Urea Nitrogen 42 mg/dL (7-23) Creatinine 5.8 mg/dL (0.7-1.2) Estimat Glomerular Filtration Rate 12.1 mL/min (>60) Glucose Level 88 mg/dL (74-106) Calcium Level 9.0 mg/dL (8.6-10.2) Total Bilirubin 2.0 mg/dL (0.0-1.2) Direct Bilirubin 1.0 mg/dL (0.1-0.3) Aspartate Amino Transf (AST/SGOT) 15 U/L (5-40) Alanine Aminotransferase (ALT/SGPT) 6 U/L (3-41) Alkaline Phosphatase 134 U/L (40-129) Total Protein 6.2 g/dL (6.6-8.7) Albumin 2.9 g/dL (3.5-5.2) Globulin 3.3 g/dL Albumin/Globulin Ratio 0.8 (1.0-2.7) Objective HEAD AND NECK: No jugular venous distention or carotid bruits. LUNGS: Clear. CARDIOVASCULAR: Regular S1 and S2 with no gallop or murmur. ABDOMEN: Soft and nontender. EXTREMITIES: No pitting edema. Dialysis access in the right chest. DILIA GUERRERO Oct 15, 2016 09:51
--- NOTE | 2016-10-15 09:57 | Diagnostic Imaging Report ---
Indication: 60-year-old male inpatient with back pain x1 week, possible vertebral body compression fracture Technique: Sagittal T1 fast spin echo, sagittal T2 fast echo, sagittal STIR, axial T1, axial T2 FRFSE , axial T2 fat saturated images were obtained through the thoracic spine Comparison: Reference made to plain radiographs dated 10/12/2016 Findings: There is a wedge compression fracture deformity of the T7 vertebral body, resulting in approximately 40% height loss anteriorly. There is minimal resultant focal kyphotic deformity at this level There is minimal retropulsion of the superior-posterior wall, by a few millimeters. This does not significantly impinge upon the spinal canal. There is marrow edema, manifested by decreased T1 and increased STIR signal. Within the T10 vertebral body, there is a 14 mm long axis dimension focus of signal abnormality. This is isointense on the T1-weighted images, but is high signal on the T2 and STIR images. The remainder of the vertebral body marrow signal is normal. The remaining vertebral body heights are preserved. The remaining bony alignment is normal. No significant disc bulge or protrusion, spinal stenosis, or neural foraminal stenosis. The included extraspinal soft tissues are unremarkable. Impression: Positive for acute or subacute T7 vertebral body compression fracture. If clinically indicated, this would be amenable to percutaneous kyphoplasty. T10 vertebral body 14 mm abnormal high T2 signal focus. While possibly an atypical hemangioma, the possibility of neoplasm such as metastatic disease should also be considered. Consider bone scanning for better characterization. Findings discussed by phone with Dr. Elizondo at the time of interpretation
--- NOTE | 2016-10-15 10:18 | General Progress Note ---
Assessment/Plan Assessment/Plan (1) Cocaine abuse (2) Chest pain (3) CHF (4) ESRD on Hemodialysis (5) Lumbar sprain s/p fall (6) T spine compression fracture We will ordered Whole body bone scan to r/o hemangioma vs neoplasm at T10. Kyphoplasty as per spinal surgeon. Pt will be continued on Bengay cream, Lidoderm patch and tramadol. Pt was d/w Dr. Rodriguez and he concurred. Subjective Date patient seen: Oct 15, 2016 Time patient seen: 08:15 - am Allergies: Coded Allergies: No Known Allergies (Unverified , 09/28/16) Subjective REVIEW OF SYSTEMS: Denies rash, fever, chills, sweating, dizziness, drowsiness, blurred vision, sore throat, or change in weight. No nausea, vomiting, diarrhea, or blood urine. No bowel or bladder incontinence. No dysuria. c/o back pain SUBJECTIVE: His pain has been stable. MRI was reviewed with patient acute thoracic spine compression 40% height loss and hemangioma noted at T10 possible neoplasm recommending bone scan. Dr. Elizondo has requested Dr. Mitchell to asses for need of Kypholasty for compression fx. Objective Last 24 Hour Vital Signs Date Time Temp Pulse Resp B/P Pulse Ox O2 Delivery O2 Flow Rate FiO2 10/15/16 08:00 97.9 87 18 115/62 96 Room Air 10/15/16 04:00 96.6 89 19 110/76 95 Room Air 10/15/16 00:00 97.3 92 20 109/57 98 Room Air 10/14/16 21:00 105/63 10/14/16 21:00 105/63 10/14/16 20:00 97.0 85 14 105/63 96 Room Air 10/14/16 16:30 98.0 93 16 111/60 96 Room Air 10/14/16 16:30 Room Air 10/14/16 16:10 97.7 80 16 111/56 94 Room Air 10/14/16 15:20 98.0 10/14/16 13:30 Room Air 10/14/16 13:30 98.1 90 18 119/65 98 Room Air 10/14/16 12:06 98.0 98 20 114/67 97 Room Air Intake and Output 10/14/16 10/15/16 19:00 07:00 Intake Total 600 ml 640 ml Output Total 2340 ml Balance -1740 ml 640 ml Intake Oral 600 ml 640 ml Hemodialysis UF 2340 ml # Voids 1 1 # Bowel Movements 1 Height (Feet): 5 Height (Inches): 2.00 Weight (Pounds): 176 Objective PHYSICAL EXAMINATION: GENERAL: Alert, awake, and oriented. HEENT: PERRLA. NECK: Range of motion is full in all directions. No tenderness to paracervical muscles. No adenopathy. LUNGS: Decreased breath sounds bilaterally. HEART: S1 and S2, regular. ABDOMEN: Obese. BACK: Range of motion is decreased in flexion and extension with tenderness to paraspinous and trapezius muscles. EXTREMITIES: No cyanosis, no clubbing, edema noted on RUE. NEURO: No changes. Procedure: MRI T Spine no Contrast Impression: Positive for acute or subacute T7 vertebral body compression fracture. T10 vertebral body 14 mm abnormal high T2 signal focus. While possibly an atypical hemangioma, the possibility of neoplasm such as metastatic disease should also be considered. ARRON EDWARD Oct 15, 2016 10:18
[2016-10-15 12:00] VITALS: BP 108/68
[2016-10-15] MEDS: Analgesic Balm 15gm TOPIC SCH ×3 (13:00→21:00)
--- NOTE | 2016-10-15 13:10 | GI Progress Note ---
Assessment/Plan Problems: (1) GIB (gastrointestinal bleeding) ICD Codes: K92.2 - Gastrointestinal hemorrhage, unspecified SNOMED: 66213384 (2) Cocaine abuse ICD Codes: F14.10 - Cocaine abuse, uncomplicated SNOMED: 69634167, 328213914 (3) Anemia in chronic kidney disease ICD Codes: N18.9 - Chronic kidney disease, unspecified; D63.1 - Anemia in chronic kidney disease SNOMED: 394998062, 862509773 (4) Chest pain ICD Codes: R07.9 - Chest pain, unspecified SNOMED: 16626731, 935431371 Qualifiers: Qualified Codes: R07.9 - Chest pain, unspecified Status: stable Status Narrative Discussed with Dr. Bal. Assessment/Plan SUMMARY OF FINDINGS: 1. Significant diverticulosis. 2. Two polyps removed, see above for details. 3. Internal hemorrhoids. RECOMMENDATIONS: ok for DC per GI standpoint cardiac diet monitor H&H, transfuse prn PPI fu biopsy for HP repeat colon x 3 years fu labs fu with PCP Subjective Subjective denies any GI symptoms. back pain Objective Last 24 Hour Vital Signs Date Time Temp Pulse Resp B/P Pulse Ox O2 Delivery O2 Flow Rate FiO2 10/15/16 08:00 97.9 87 18 115/62 96 Room Air 10/15/16 04:00 96.6 89 19 110/76 95 Room Air 10/15/16 00:00 97.3 92 20 109/57 98 Room Air 10/14/16 21:00 105/63 10/14/16 21:00 105/63 10/14/16 20:00 97.0 85 14 105/63 96 Room Air 10/14/16 16:30 98.0 93 16 111/60 96 Room Air 10/14/16 16:30 Room Air 10/14/16 16:10 97.7 80 16 111/56 94 Room Air 10/14/16 15:20 98.0 10/14/16 13:30 Room Air 10/14/16 13:30 98.1 90 18 119/65 98 Room Air Intake and Output 10/14/16 10/15/16 19:00 07:00 Intake Total 600 ml 640 ml Output Total 2340 ml Balance -1740 ml 640 ml Intake Oral 600 ml 640 ml Hemodialysis UF 2340 ml # Voids 1 1 # Bowel Movements 1 Height (Feet): 5 Height (Inches): 2.00 Weight (Pounds): 176 General Appearance: no apparent distress, alert Cardiovascular: normal rate Respiratory/Chest: normal breath sounds, no respiratory distress Abdominal Exam: normal bowel sounds, non tender, soft Sole Lucio N.P. Oct 15, 2016 13:10
--- NOTE | 2016-10-15 13:30 | General Progress Note ---
Assessment/Plan Status: stable Status Narrative Positive for acute or subacute T7 vertebral body compression fracture. Assessment/Plan Status: (1) ESRD (end stage renal disease) on dialysis (2) Chest pain (3) Cocaine abuse (4) Anemia in chronic kidney disease (5) ? DVT right UE (6) Cardiomyopathy: Global left ventricular hypokinesis. Worse septal apper akinetic s. Left ventricular ejection fraction estimated to be 30-35 %. MR: Positive for acute or subacute T7 vertebral body compression fracture. Plan: had dialysis access placed / HD 10/16 in am- Due Kyphoplasty On marcie inhibitors- per consultants ? DC planning Subjective ROS Limited/Unobtainable: No Constitutional: Reports: malaise 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: Reports: other - back pain Allergies: Coded Allergies: No Known Allergies (Unverified , 09/28/16) Objective Last 24 Hour Vital Signs Date Time Temp Pulse Resp B/P Pulse Ox O2 Delivery O2 Flow Rate FiO2 10/15/16 08:00 97.9 87 18 115/62 96 Room Air 10/15/16 04:00 96.6 89 19 110/76 95 Room Air 10/15/16 00:00 97.3 92 20 109/57 98 Room Air 10/14/16 21:00 105/63 10/14/16 21:00 105/63 10/14/16 20:00 97.0 85 14 105/63 96 Room Air 10/14/16 16:30 98.0 93 16 111/60 96 Room Air 10/14/16 16:30 Room Air 10/14/16 16:10 97.7 80 16 111/56 94 Room Air 10/14/16 15:20 98.0 10/14/16 13:30 Room Air 10/14/16 13:30 98.1 90 18 119/65 98 Room Air Intake and Output 10/14/16 10/15/16 19:00 07:00 Intake Total 600 ml 640 ml Output Total 2340 ml Balance -1740 ml 640 ml Intake Oral 600 ml 640 ml Hemodialysis UF 2340 ml # Voids 1 1 # Bowel Movements 1 Height (Feet): 5 Height (Inches): 2.00 Weight (Pounds): 176 General Appearance: no apparent distress, mild distress Neurologic: other - back pain Objective no change in PE KALEY RIOS Oct 15, 2016 13:30
--- NOTE | 2016-10-15 14:42 | Consultation ---
Consult Note Consult Note NEUROLOGY CONSULTATION: Full note dictated #[id number] 60 y/ o, RH, BM with PH of HTN, DM, ESRD on HD, and polysubstance abuse with THC and Crack Cocaine. He was hospitalized at another hospital a few days prior to hospitalization at [facility] on 09/29/16. He has had some mid back pain since he came here. He denies any specific trauma to his back. He had a MRI of the T spine performed on 10/14/16 which revealed an acute vs subacute T7 vertebral body compression fracture. A T10 vertebral body 14 mm abnormal high T2 signal focus, most probably an atypical hemangioma vs a neoplasm. He denies any weakness in his legs, myelopathic discomfort or problems with incontinence. ON EXAM: Point tenderness over mid-spine on percussion. Globally absent reflexes. IMPRESSION: T 7 compression fracture with no involvement of spinal cord. REC: Agree with spine surgery evaluation. Decision regarding kyphoplasty after evaluation by Dr. Mitchell. Patricia Barron M.D., M.S.P.H. PATRICIA BARRON Oct 15, 2016 14:42
--- NOTE | 2016-10-15 15:58 | General Progress Note ---
Assessment/Plan Problem List: (1) Cocaine abuse ICD Codes: F14.10 - Cocaine abuse, uncomplicated SNOMED: 20377842, 235790403 (2) Chest pain ICD Codes: R07.9 - Chest pain, unspecified SNOMED: 61577486, 226760878 Qualifiers: Qualified Codes: R07.9 - Chest pain, unspecified Status: progressing Assessment/Plan back pain has acute t7 compression fx consulted dr evelyne aceves for above radiology dr ayala might do the hyphoplasty as well once cleared by dr stubbs not stable for transfer due to above Subjective ROS Limited/Unobtainable: Yes Constitutional: Reports: no symptoms Allergies: Coded Allergies: No Known Allergies (Unverified , 09/28/16) Objective Last 24 Hour Vital Signs Date Time Temp Pulse Resp B/P Pulse Ox O2 Delivery O2 Flow Rate FiO2 10/15/16 12:00 96.6 16 108/68 97 Room Air 10/15/16 08:00 97.9 87 18 115/62 96 Room Air 10/15/16 04:00 96.6 89 19 110/76 95 Room Air 10/15/16 00:00 97.3 92 20 109/57 98 Room Air 10/14/16 21:00 105/63 10/14/16 21:00 105/63 10/14/16 20:00 97.0 85 14 105/63 96 Room Air 10/14/16 16:30 98.0 93 16 111/60 96 Room Air 10/14/16 16:30 Room Air 10/14/16 16:10 97.7 80 16 111/56 94 Room Air Intake and Output 10/14/16 10/15/16 19:00 07:00 Intake Total 600 ml 640 ml Output Total 2340 ml Balance -1740 ml 640 ml Intake Oral 600 ml 640 ml Hemodialysis UF 2340 ml # Voids 1 1 # Bowel Movements 1 Height (Feet): 5 Height (Inches): 2.00 Weight (Pounds): 176 EENT: PERRL/EOMI Neck: supple Cardiovascular: normal rate Respiratory/Chest: lungs clear Abdomen: soft Liu Elizondo MD Oct 15, 2016 15:57
[2016-10-15 16:30] VITALS: BP 118/71
--- NOTE | 2016-10-15 16:49 | Infectious Diseases Prog Note ---
Assessment/Plan Problems: (1) Colonization with VRE (vancomycin-resistant enterococcus) Assessment & Plan: keep in contact isolation (2) ESRD (end stage renal disease) on dialysis Assessment & Plan: continue HD as per renal. (3) Cocaine abuse Assessment & Plan: recommend counseling and rehab (4) Chest pain Assessment & Plan: had stress test , cardiology is following (5) Anemia in chronic kidney disease Assessment & Plan: stable, monitor H/H transfuse as needed (6) GIB (gastrointestinal bleeding) Assessment & Plan: monitor H/H transfuse blood as needed Subjective Constitutional: Reports: no symptoms HEENT: Reports: no symptoms Respiratory: Reports: no symptoms Breasts: Reports: no symptoms Cardiovascular: Reports: no symptoms Gastrointestinal/Abdominal: Reports: no symptoms Genitourinary: Reports: no symptoms Neurologic: Reports: no symptoms Psychiatric: Reports: no symptoms Skin: Reports: no symptoms Endocrine: Reports: no symptoms Hematologic: Reports: no symptoms Allergies: Coded Allergies: No Known Allergies (Unverified , 09/28/16) Subjective he was doing well today, denied any symptoms. Objective Vital Signs Last 24 Hour Vital Signs Date Time Temp Pulse Resp B/P Pulse Ox O2 Delivery O2 Flow Rate FiO2 10/15/16 12:00 96.6 16 108/68 97 Room Air 10/15/16 08:00 97.9 87 18 115/62 96 Room Air 10/15/16 04:00 96.6 89 19 110/76 95 Room Air 10/15/16 00:00 97.3 92 20 109/57 98 Room Air 10/14/16 21:00 105/63 10/14/16 21:00 105/63 10/14/16 20:00 97.0 85 14 105/63 96 Room Air Height (Feet): 5 Height (Inches): 2.00 Weight (Pounds): 176 General Appearance: WD/WN, no acute distress HEENT: normocephalic, atraumatic, anicteric, mucous membranes moist Respiratory/Chest: chest wall non-tender, lungs clear, normal breath sounds, no respiratory distress Cardiovascular: normal peripheral pulses, normal rate, regular rhythm, no gallop/murmur Abdomen: normal bowel sounds, soft, non tender, no organomegaly, non distended , no mass Extremities: no cyanosis, no clubbing Skin: no rash, no lesions, no ulcers Current Medications Medications (Trade) Dose Ordered Sig/Lillian Route PRN Reason Start Time Stop Time Status Last Admin Dose Admin Acetaminophen (Tylenol) 650 mg Q4H PRN ORAL Fever 10/06/16 15:30 11/05/16 15:29 10/10/16 06:37 Dextrose (Dextrose 50%) STAT PRN IV Hypoglycemia 10/06/16 19:30 11/05/16 19:29 Epoetin Joseph (Procrit (for ESRD on dialysis)) 5,000 units TUE-TUE-TUE SUBQ 10/06/16 21:00 11/05/16 20:59 10/13/16 22:30 Insulin Aspart (NovoLOG) BEFORE MEALS AND HS SUBQ 10/06/16 16:30 11/05/16 16:29 Lidocaine (Lidoderm 5% PATCH) 1 patch DAILY TDERMAL 10/07/16 09:00 11/06/16 08:59 10/15/16 08:44 Lisinopril (Zestril) 2.5 mg Q12HR ORAL 10/06/16 21:00 11/05/16 20:59 10/13/16 21:02 Menthol/Methyl Salicylate (Bengay) 1 applic FOUR TIMES A DAY TOPIC 10/10/16 13:00 11/09/16 12:59 10/14/16 18:34 Ondansetron HCl (Zofran) 4 mg Q6H PRN IVP Nausea & Vomiting 10/06/16 13:30 11/05/16 13:29 Pantoprazole (Protonix) 40 mg ACBREAKFAST ORAL 10/09/16 06:30 11/06/16 08:59 10/15/16 05:45 Polyethylene Glycol (Miralax) 17 gm DAILYPRN PRN ORAL Constipation 10/06/16 19:30 11/05/16 19:29 10/12/16 21:13 Temazepam (Restoril) 15 mg HSPRN PRN ORAL Insomnia 10/14/16 08:15 10/21/16 08:14 Tramadol HCl (Ultram) 50 mg Q4H PRN ORAL moderate to severe pain 10/14/16 08:15 10/21/16 08:14 10/14/16 14:21 Vitamin B Complex/ Vit C/Folic Acid (Nephrovite) 1 tab DAILY ORAL 10/07/16 09:00 11/06/16 08:59 10/15/16 08:44 Ivania Bhardwaj M.D. Oct 15, 2016 16:49
--- NOTE | 2016-10-15 18:58 | General Progress Note ---
Progress Note Progress Note Consulted by Dr. Shearer for possible T7 Kyphoplasty Mr. Hines is a pleasant 60-year-old male. He experienced sudden onset of mid back pain while in an outside hospital recently. This was not associated with any trauma. He describes the pain as radiating slightly to the left ribs, but not to the lower extremities. It has improved somewhat since the intial onset but is still severe. MRI performed today demonstrates an acute or subacute T7 compression fracture, with mild posterior retropulsion. On exam, he is tender in the expected region of the mid thoracic spine I feel he is a good candidate for kyphoplasty. Benefits, alternatives, and risks , including but not limited to hemorrhage, infection, nerve damage, clinical failure discussed with patient, all questions answered. He wishes to proceed. Understands Dr. Elkins likely to perform. DEVAN MALIK M.D. Oct 15, 2016 18:58
--- NOTE | 2016-10-15 18:59 | Pre-Procedure Note/Attestation ---
Pre-Procedure Note/Attestation Complete Prior to Procedure Planned Procedure: not applicable Procedure Narrative: T7 kyphoplasty Indications for Procedure Pre-Operative Diagnosis: Acute T7 compression fx Attestation I attest that I discussed the nature of the procedure; its benefits; risks and complications; and alternatives (and the risks and benefits of such alternatives ), prior to the procedure, with the patient (or the patient's legal auto service representative). I attest that, if there was a reasonable possibility of needing a blood transfusion, the patient (or the patient's legal auto service representative) was given the [facility] standardized written summary, pursuant to the Ad[place] No Blood Safety Act ([place] Health and Safety Code # 1645, as amended). I attest that I re-evaluated the patient just prior to the surgery and that there has been no change in the patient's H&P, except as documented below: DEVAN MALIK M.D. Oct 15, 2016 18:59
--- NOTE | 2016-10-15 19:49 | General Progress Note ---
Assessment/Plan Assessment/Plan ASSESSMENT: 1. Anemia secondary to end-stage renal disease. Ferritin is 711. Is on epogen and HD prn 2. Acute drop in hgb, consider GI bleed, has been cleared by cards, pending colo 3. Thrombocytopenia potentially secondary to underlying infection. hep and hiv - , now improved 4. Coagulopathy INR is 1.2, improved 5. Diabetes mellitus. 6. End-stage renal disease on hemodialysis. 7. Cocaine use history. RECOMMENDATIONS: 1. Monitor counts. 2. Transfuse if hemoglobin less than 7.5. 3. Continue epogen 4. Followup GI recs - is now s/p colo 5. Ultrasound of the abdomen has been reviewed 6. Anemia workup has reviewed 7. Followup on Nephrology, Pulmonary, GI, Cards recs 8. Transfuse if plts <20k 9. DVT prophylaxis with scds 10. GI prophylaxis ppi 11. Pain control. 12. staff. Thank you, Hugh Lopez MD Subjective Constitutional: Reports: no symptoms HEENT: Reports: no symptoms Cardiovascular: Reports: no symptoms Respiratory: Reports: no symptoms Gastrointestinal/Abdominal: Reports: poor appetite Genitourinary: Reports: no symptoms 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: Reports: no symptoms Endocrine: Reports: no symptoms Hematologic/Lymphatic: Reports: anemia Allergies: Coded Allergies: No Known Allergies (Unverified , 09/28/16) Subjective awake, pain better controlled, is not bleeding Objective Last 24 Hour Vital Signs Date Time Temp Pulse Resp B/P Pulse Ox O2 Delivery O2 Flow Rate FiO2 10/15/16 16:30 96.9 18 118/71 95 Room Air 10/15/16 12:00 96.6 16 108/68 97 Room Air 10/15/16 08:00 97.9 87 18 115/62 96 Room Air 10/15/16 04:00 96.6 89 19 110/76 95 Room Air 10/15/16 00:00 97.3 92 20 109/57 98 Room Air 10/14/16 21:00 105/63 10/14/16 21:00 105/63 10/14/16 20:00 97.0 85 14 105/63 96 Room Air Intake and Output 10/14/16 10/15/16 19:00 07:00 Intake Total 600 ml 640 ml Output Total 2340 ml Balance -1740 ml 640 ml Intake Oral 600 ml 640 ml Hemodialysis UF 2340 ml # Voids 1 1 # Bowel Movements 1 Height (Feet): 5 Height (Inches): 2.00 Weight (Pounds): 176 General Appearance: no apparent distress EENT: normal ENT inspection Neck: supple Cardiovascular: regular rhythm Respiratory/Chest: no respiratory distress Abdomen: non tender Extremities: non-tender Edema: no edema noted Leg (L), no edema noted Leg (R) Edema: mild edema Neurologic: no motor/sensory deficits Skin: warm/dry Hugh Lopez Oct 15, 2016 19:49
--- NOTE | 2016-10-15 20:17 | Consultation ---
DATE OF CONSULTATION: 10/15/2016 NEUROLOGY CONSULTATION CONSULTING PHYSICIAN: Mario Alberto Barron M.D. REQUESTING PHYSICIAN: Liu Elizondo M.D. HISTORY: Mr. Demetrius Hines is a 60-year-old, right-handed, black gentleman, who does have a past history of hypertension, diabetes mellitus, end-stage renal disease for which he is hemodialysis dependent and polysubstance abuse with tetrahydrocannabinols and crack cocaine. He was functioning relatively well until the middle of September 2016 when he was taken to the [facility] for pain and discomfort involving his back, he was evaluated there and then sent home but he re-presented to [facility] on 09/29/2016 for the same problem. The pain is predominantly in his mid back and does not spread elsewhere. He denies any specific trauma to his back. He has been worked up for this problem and an MRI scan of the thoracic spine was performed on 10/14/2016. MRI scan revealed an acute versus subacute T7 vertebral body compression fracture. In addition, at the T10 vertebral body a 40 mm abnormal high T2 signal focus was also seen thought to be an atypical hemangioma versus a neoplasm. This consultation was requested to evaluate the patient from a neurological point of view for his T7 vertebral compression fracture. The patient feels that his back pain has improved significantly in the last day or so. He has never noticed any weakness in his legs, any myelopathic discomfort, specifically sharp shooting pain going from his back downwards, or problems with controlling his sphincters. PAST MEDICAL HISTORY: Significant for hypertension, diabetes mellitus, end-stage renal disease for which he is on hemodialysis, polysubstance abuse with cannabinoids and crack cocaine. FAMILY HISTORY: Significant for high blood pressure and diabetes mellitus in other family members. PERSONAL HISTORY: Home: He lives alone. 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 Habits: He used to smoke cigarettes but has stopped smoking for quite some time. He does drink alcohol from time to time. He also consumes tetrahydrocannabinol and crack cocaine on a regular basis. PRESENT MEDICATIONS: Include tramadol, temazepam, Protonix, Lidoderm patch, Nephro-Joseph, Procrit, Zestril, MiraLAX, Aspartinsulin, Tylenol, and Zofran. PHYSICAL EXAMINATION: GENERAL: He is a well-developed, well-nourished, pleasant black gentleman, lying in bed, in no acute distress. VITAL SIGNS: Pulse 98 per minute, blood pressure 108/68 mmHg, respirations 16 per minute, temperature 96.6 degrees Fahrenheit. HEAD: Normocephalic and atraumatic. EENT: Examination benign NECK: No neck rigidity was observed. NEUROLOGICAL EXAMINATION: MENTAL STATUS EXAMINATION: He was alert and awake. He was oriented to self, hospital, and October. He did not know the date, year, or name of the hospital. He was able to recall 3/3 words immediately, but could only remember 2/3 words in 1 minute and 3 minutes. He knew that Obama was President, but could not remember presidents prior to that. His mathematical skills were impaired. His visuospatial function was also impaired. SPEECH: He had no dysarthria. LANGUAGE: He had anomia for low frequency words. CRANIAL NERVE EXAMINATION: II: The visual glaser were intact in the right eye. In the left eye vision was poor . III, IV & : External ocular movements are full in the right eye and restricted in the left eye. V: He had normal facial sensations and the temporales, masseters, and pterygoids function normally. VII: He had normal facial expressions and no facial asymmetry. VIII: He was able to hear well bilaterally and had no nystagmus. IX: The palate moved symmetrically on phonation. X: He had no hoarseness of voice. XI: The sternocleidomastoids and trapezii functioned normally. XII: The tongue was in the midline without any fasciculations or atrophy. MOTOR SYSTEM: The tone was normal in all four extremities. Examination of muscle mass revealed no definite focal wasting however it should be noticed that his right upper extremity was significantly swollen. Examination of power revealed grade 5/5 power in all muscle groups tested. SENSORY EXAMINATION: He had intact sensations to pinprick, light touch, and graphesthesia. COORDINATION: He performed well on [id number] and [id number]-[id number] testing. REFLEXES: 0 at the biceps, triceps, brachioradialis, knees, and ankles. The plantar responses were flexor bilaterally. STANCE: He stood up with contact guard. GAIT: He walked well with contact guard. DIAGNOSTIC IMPRESSION: 1. Mr. Demetrius Hines is a 60-year-old, right-handed, black gentleman, with past history of hypertension, diabetes mellitus, end-stage renal disease, and polysubstance abuse with tetrahydrocannabinol and cocaine who was hospitalized at another hospital prior to his hospitalization at [facility] on 09/29/2016. When he came in he did have some mid back pain which was quite severe for the first few days, but has been much better in the last few days. He was evaluated for this pain and was found to have a T7 compression fracture. 2. On neurological examination, at this time, he does have significant problems with orientation, recent and remote memory, higher cognitive function, and language. He also has point tenderness over his mid thoracic spine predominantly in the T6 and T7 region. In addition, the deep tendon reflexes are globally absent. 3. An MRI scan of thoracic spine revealed an acute versus subacute T7 vertebral body compression fracture with reduction of the vertebral height by approximately 40%, a T10 vertebral body abnormal high T2 signal area is also seen which most probably represents either a hemangioma or a neoplasm. 4. The patient's history and neurological examination are most compatible with a T7 compression fracture which is most probably traumatic in nature. He does not demonstrate any signs of spinal cord dysfunction at this point in time. RECOMMENDATIONS: 1. Agree with management thus far. 2. Depending on how symptomatic the patient is, a decision may have to be made as to whether a kyphoplasty should be performed or not. 3. The patient is going to be seen by Dr. Matty Mitchell for spinal evaluation and at that time the patient was told to make a decision as to whether he wants a kyphoplasty or not. Thank you for entrusting me with the care of Mr. Hines. I shall follow him with you. Mario Alberto Barron M.D., M.S.P.H. DR: Shlomo JOB#: [id number] JOEY
[2016-10-15] MEDS: Epogen (for ESRD on dialysis) SUBQ SCH (20:58)
[2016-10-16] VITALS: BP 114/66
[2016-10-16 04:00] VITALS: BP 121/76
[2016-10-16] MEDS: traMADol 50mg tab ORAL PRN (05:40)
[2016-10-16] MEDS: NovoLOG Insulin Flexpen SUBQ SCH ×4 (06:08→20:25)
[2016-10-16 07:17] LABS: CALCIUM 9.2 mg/dL (8.6-10.2); GLOMERULAR FILTRATION RATE 14.4 mL/min (>60); POTASSIUM 5.4 mEQ/L (3.4-4.9)
[2016-10-16 07:21] LABS: BASOPHILS % (AUTO) 2.8 % (0.0-2.0); EOSINOPHILS % (AUTO) 3.8 % (0.0-3.0); LYMPHOCYTES % (AUTO) 9.6 % (20.0-45.0); MEAN CORPUSCULAR HEMOGLOBIN 31.6 PG (27.0-31.0); MEAN CORPUSCULAR HGB CONC 29.8 G/DL (32.0-36.0); MEAN CORPUSCULAR VOLUME 106 FL (80-99); MEAN PLATELET VOLUME 6.9 FL (6.5-10.1); MONOCYTES % (AUTO) 19.3 % (1.0-10.0); NEUTROPHILS % (AUTO) 64.5 % (45.0-75.0); PLATELET COUNT 437 K/UL (150-450); RED BLOOD COUNT 2.89 M/UL (4.70-6.10); RED CELL DISTRIBUTION WIDTH 24.1 % (11.6-14.8); WHITE BLOOD COUNT 6.8 K/UL (4.8-10.8)
[2016-10-16 08:00] VITALS: BP 135/58
[2016-10-16] MEDS: Lisinopril 2.5mg tab ORAL SCH ×2 (09:00→20:27)
[2016-10-16] MEDS: Nephrovite tab ORAL SCH (09:00)
[2016-10-16] MEDS: Analgesic Balm 15gm TOPIC SCH ×4 (09:11→20:27)
[2016-10-16] MEDS ORDERED: DuoNeb 0.5-3(2.5)mg/3ml neb HHN PRN (09:15)
--- NOTE | 2016-10-16 09:18 | Pulmonology Progress Note ---
Assessment/Plan Assessment/Plan ASSESSMENT atypical chest pain ( after cocaine abuse) 2 to vasospasm severe cardiomyopathy moderate pulmonary HTN severe MR severe TR acute anemia 2 to GI bleeding and anemia of chronic disease s/p blood transfusion s/p EGD and colonoscopy ESRD, on HD HTN DM cocaine abuse T 7 vertebral compression fracture -acute vs subacute PLAN OF CARE MS floor serial troponin negative, cardio follows, ruled out for ACS CP after cocaine abuse due to vasospasm -as per cardio, ECHO with EF 30-35%, severe MR and TR, RVSP of 50 c/w moderate pulmonary HTN stress test no significant ischemia as per cardio O2 HHN prn CXR with cardiomegaly, CHF BP management with CCB ,avoid BB due to cocaine use BS management with SS of insulin stool OB + x 3 GI follows s/p EGD and colon with findings of diverticulosis, 2 polyps, s/p biopsy, internal hemorrhoids gastric biopsy no H pylori, no dysplasia, no metaplasia PPI heme follows stool OB + x 3 monitor HH, transfuse prn , remains in baseline on EPO, continue HD as per nephro hyperkalemia management - as per nephro hepatitis panel negative Abdominal US + ascites MTI T spine -positive for acute or subacute T7 vertebral body compression fracture, pain management, pain specialist follows Venous Duplex RUE negative 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 on avoidance of cocaine DVT, GI prophylaxis case discussed and evaluated by supervising physician Subjective Allergies: Coded Allergies: No Known Allergies (Unverified , 09/28/16) Subjective afebrile, no leucocytosis on RA no signs of respiratory distress denies dizziness, blackout no SOB, no chest pain HH stable , at baseline still c/o back pain Objective Last 24 Hour Vital Signs Date Time Temp Pulse Resp B/P Pulse Ox O2 Delivery O2 Flow Rate FiO2 10/16/16 06:39 96.9 10/16/16 04:00 97.5 18 121/76 95 Room Air 10/16/16 00:00 97.3 18 114/66 96 Room Air 10/15/16 16:30 96.9 18 118/71 95 Room Air 10/15/16 12:00 96.6 16 108/68 97 Room Air Intake and Output 10/15/16 10/16/16 19:00 07:00 Intake Total 740 ml 600 ml Balance 740 ml 600 ml Intake Oral 740 ml 600 ml # Voids 3 3 # Bowel Movements 2 Objective General Appearance: WD/WN, no acute distress HEENT: normocephalic, atraumatic, anicteric Respiratory/Chest: chest wall non-tender, lungs clear with moderate air entry Cardiovascular: normal rate, regular rhythm Abdomen: normal bowel sounds, soft, non tender Extremities: no edema, pedal pulses normal 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: no motor/sensory deficits, alert, oriented x 3, responsive Musculoskeletal: normal muscle bulk Laboratory Tests 10/16/16 05:00: White Blood Count 6.8, Red Blood Count 2.89L, Hemoglobin 9.1L, Hematocrit 30.6L , Mean Corpuscular Volume 106H, Mean Corpuscular Hemoglobin 31.6H, Mean Corpuscular Hemoglobin Concent 29.8L, Red Cell Distribution Width 24.1H, Platelet Count 437, Mean Platelet Volume 6.9, Neutrophils (%) (Auto) 64.5, Lymphocytes (%) (Auto) 9.6L, Monocytes (%) (Auto) 19.3H, Eosinophils (%) (Auto) 3.8H, Basophils (%) (Auto) 2.8H, Sodium Level 134L, Potassium Level 5.4H, Chloride Level 94L, Carbon Dioxide Level 19L, Anion Gap 21H, Blood Urea Nitrogen 29H, Creatinine 5.0H, Estimat Glomerular Filtration Rate 14.4, Glucose Level 63L, Calcium Level 9.2, Phosphorus Level 4.3 Current Medications Medications (Trade) Dose Ordered Sig/Lillian Route PRN Reason Start Time Stop Time Status Last Admin Dose Admin Acetaminophen (Tylenol) 650 mg Q4H PRN ORAL Fever 10/06/16 15:30 11/05/16 15:29 10/10/16 06:37 Dextrose (Dextrose 50%) STAT PRN IV Hypoglycemia 10/06/16 19:30 11/05/16 19:29 Epoetin Joseph (Procrit (for ESRD on dialysis)) 5,000 units MON-WED-FRI SUBQ 10/06/16 21:00 11/05/16 20:59 10/15/16 20:58 Insulin Aspart (NovoLOG) BEFORE MEALS AND HS SUBQ 10/06/16 16:30 11/05/16 16:29 Lidocaine (Lidoderm 5% PATCH) 1 patch DAILY TDERMAL 10/07/16 09:00 11/06/16 08:59 10/16/16 09:11 Lisinopril (Zestril) 2.5 mg Q12HR ORAL 10/06/16 21:00 11/05/16 20:59 10/13/16 21:02 Menthol/Methyl Salicylate (Bengay) 1 applic FOUR TIMES A DAY TOPIC 10/10/16 13:00 11/09/16 12:59 10/16/16 09:11 Ondansetron HCl (Zofran) 4 mg Q6H PRN IVP Nausea & Vomiting 10/06/16 13:30 11/05/16 13:29 Pantoprazole (Protonix) 40 mg ACBREAKFAST ORAL 10/09/16 06:30 11/06/16 08:59 10/16/16 05:41 Polyethylene Glycol (Miralax) 17 gm DAILYPRN PRN ORAL Constipation 10/06/16 19:30 11/05/16 19:29 10/12/16 21:13 Temazepam (Restoril) 15 mg HSPRN PRN ORAL Insomnia 10/14/16 08:15 10/21/16 08:14 Tramadol HCl (Ultram) 50 mg Q4H PRN ORAL moderate to severe pain 10/14/16 08:15 10/21/16 08:14 10/16/16 05:40 Vitamin B Complex/ Vit C/Folic Acid (Nephrovite) 1 tab DAILY ORAL 10/07/16 09:00 11/06/16 08:59 10/15/16 08:44 Jevon ([facility])Kate NP Oct 16, 2016 09:18
--- NOTE | 2016-10-16 10:23 | General Progress Note ---
Assessment/Plan Status: stable Assessment/Plan Status: (1) ESRD (end stage renal disease) on dialysis (2) Chest pain (3) Cocaine abuse (4) Anemia in chronic kidney disease (5) ? DVT right UE (6) Cardiomyopathy: Global left ventricular hypokinesis. Worse septal apper akinetic s. Left ventricular ejection fraction estimated to be 30-35 %. MR: Positive for acute or subacute T7 vertebral body compression fracture. Plan: had dialysis access placed 10/12 HD 10/16 will begin shortly Due Kyphoplasty On marcie inhibitors- per consultants ? DC planning after Kyphoplasty? Subjective ROS Limited/Unobtainable: No Constitutional: Reports: malaise Allergies: Coded Allergies: No Known Allergies (Unverified , 09/28/16) Objective Last 24 Hour Vital Signs Date Time Temp Pulse Resp B/P Pulse Ox O2 Delivery O2 Flow Rate FiO2 10/16/16 06:39 96.9 10/16/16 04:00 97.5 18 121/76 95 Room Air 10/16/16 00:00 97.3 18 114/66 96 Room Air 10/15/16 16:30 96.9 18 118/71 95 Room Air 10/15/16 12:00 96.6 16 108/68 97 Room Air Intake and Output 10/15/16 10/16/16 19:00 07:00 Intake Total 740 ml 600 ml Balance 740 ml 600 ml Intake Oral 740 ml 600 ml # Voids 3 3 # Bowel Movements 2 Laboratory Tests 10/16/16 05:00: White Blood Count 6.8, Red Blood Count 2.89L, Hemoglobin 9.1L, Hematocrit 30.6L , Mean Corpuscular Volume 106H, Mean Corpuscular Hemoglobin 31.6H, Mean Corpuscular Hemoglobin Concent 29.8L, Red Cell Distribution Width 24.1H, Platelet Count 437, Mean Platelet Volume 6.9, Neutrophils (%) (Auto) 64.5, Lymphocytes (%) (Auto) 9.6L, Monocytes (%) (Auto) 19.3H, Eosinophils (%) (Auto) 3.8H, Basophils (%) (Auto) 2.8H, Sodium Level 134L, Potassium Level 5.4H, Chloride Level 94L, Carbon Dioxide Level 19L, Anion Gap 21H, Blood Urea Nitrogen 29H, Creatinine 5.0H, Estimat Glomerular Filtration Rate 14.4, Glucose Level 63L, Calcium Level 9.2, Phosphorus Level 4.3 Height (Feet): 5 Height (Inches): 2.00 Weight (Pounds): 165 General Appearance: no apparent distress Objective no change in PE KALEY RIOS Oct 16, 2016 10:23
--- NOTE | 2016-10-16 10:25 | General Progress Note ---
Assessment/Plan Assessment/Plan ASSESSMENT: 1. Anemia secondary to end-stage renal disease. Ferritin is 711. Is on epogen and HD prn basis 2. Acute drop in hgb, consider GI bleed, has been cleared by cards, pending colo 3. Thrombocytopenia potentially secondary to underlying infection. hep and hiv - , now improved 4. Coagulopathy INR is 1.2, improved 5. Diabetes mellitus. 6. End-stage renal disease on hemodialysis. 7. Cocaine use history. RECOMMENDATIONS: 1. Monitor counts. 2. Transfuse if hemoglobin less than 7.0 3. Continue epogen 4. Followup GI recs - is now s/p colo 5. Ultrasound of the abdomen has been reviewed 6. Anemia workup has reviewed 7. Followup on Nephrology, Pulmonary, GI, Cards recs 8. Transfuse if plts <20k 9. DVT prophylaxis with scds 10. GI prophylaxis ppi 11. Pain control. 12. staff. Thank you, Jean-Claude Lopez MD Subjective Constitutional: Reports: no symptoms HEENT: Reports: no symptoms Cardiovascular: Reports: no symptoms Respiratory: Reports: no symptoms Gastrointestinal/Abdominal: Reports: poor appetite Genitourinary: Reports: no symptoms 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: Reports: no symptoms Endocrine: Reports: no symptoms Hematologic/Lymphatic: Reports: anemia Allergies: Coded Allergies: No Known Allergies (Unverified , 09/28/16) Subjective stable, no fevers, or chills reported. no bleeding Objective Last 24 Hour Vital Signs Date Time Temp Pulse Resp B/P Pulse Ox O2 Delivery O2 Flow Rate FiO2 10/16/16 06:39 96.9 10/16/16 04:00 97.5 18 121/76 95 Room Air 10/16/16 00:00 97.3 18 114/66 96 Room Air 10/15/16 16:30 96.9 18 118/71 95 Room Air 10/15/16 12:00 96.6 16 108/68 97 Room Air Intake and Output 10/15/16 10/16/16 19:00 07:00 Intake Total 740 ml 600 ml Balance 740 ml 600 ml Intake Oral 740 ml 600 ml # Voids 3 3 # Bowel Movements 2 Laboratory Tests 10/16/16 05:00: White Blood Count 6.8, Red Blood Count 2.89L, Hemoglobin 9.1L, Hematocrit 30.6L , Mean Corpuscular Volume 106H, Mean Corpuscular Hemoglobin 31.6H, Mean Corpuscular Hemoglobin Concent 29.8L, Red Cell Distribution Width 24.1H, Platelet Count 437, Mean Platelet Volume 6.9, Neutrophils (%) (Auto) 64.5, Lymphocytes (%) (Auto) 9.6L, Monocytes (%) (Auto) 19.3H, Eosinophils (%) (Auto) 3.8H, Basophils (%) (Auto) 2.8H, Sodium Level 134L, Potassium Level 5.4H, Chloride Level 94L, Carbon Dioxide Level 19L, Anion Gap 21H, Blood Urea Nitrogen 29H, Creatinine 5.0H, Estimat Glomerular Filtration Rate 14.4, Glucose Level 63L, Calcium Level 9.2, Phosphorus Level 4.3 Height (Feet): 5 Height (Inches): 2.00 Weight (Pounds): 165 General Appearance: no apparent distress EENT: pharynx normal Neck: supple Cardiovascular: regular rhythm Respiratory/Chest: lungs clear Abdomen: non tender Extremities: normal inspection Edema: 1+ Leg (L), 1+ Leg (R) Edema: mild edema Neurologic: alert Skin: warm/dry JEAN-CLAUDE LOPEZ Oct 16, 2016 10:25
[2016-10-16 11:57] VITALS: BP 115/71
--- NOTE | 2016-10-16 12:26 | General Progress Note ---
Assessment/Plan Problem List: (1) Cocaine abuse ICD Codes: F14.10 - Cocaine abuse, uncomplicated SNOMED: 63477552, [id number] (2) Chest pain ICD Codes: R07.9 - Chest pain, unspecified SNOMED: 08400176, [id number] Qualifiers: Qualified Codes: R07.9 - Chest pain, unspecified Status: progressing Assessment/Plan vitals stable acute compression fracture kyphoplasty by radiologist Subjective ROS Limited/Unobtainable: Yes Constitutional: Reports: no symptoms Allergies: Coded Allergies: No Known Allergies (Unverified , 09/28/16) Objective Last 24 Hour Vital Signs Date Time Temp Pulse Resp B/P Pulse Ox O2 Delivery O2 Flow Rate FiO2 10/16/16 11:57 97.0 21 115/71 97 Room Air 10/16/16 08:00 96.8 20 135/58 96 Room Air 10/16/16 06:39 96.9 10/16/16 04:00 97.5 18 121/76 95 Room Air 10/16/16 00:00 97.3 18 114/66 96 Room Air 10/15/16 16:30 96.9 18 118/71 95 Room Air Intake and Output 10/15/16 10/16/16 19:00 07:00 Intake Total 740 ml 600 ml Balance 740 ml 600 ml Intake Oral 740 ml 600 ml # Voids 3 3 # Bowel Movements 2 Laboratory Tests 10/16/16 05:00: White Blood Count 6.8, Red Blood Count 2.89L, Hemoglobin 9.1L, Hematocrit 30.6L , Mean Corpuscular Volume 106H, Mean Corpuscular Hemoglobin 31.6H, Mean Corpuscular Hemoglobin Concent 29.8L, Red Cell Distribution Width 24.1H, Platelet Count 437, Mean Platelet Volume 6.9, Neutrophils (%) (Auto) 64.5, Lymphocytes (%) (Auto) 9.6L, Monocytes (%) (Auto) 19.3H, Eosinophils (%) (Auto) 3.8H, Basophils (%) (Auto) 2.8H, Sodium Level 134L, Potassium Level 5.4H, Chloride Level 94L, Carbon Dioxide Level 19L, Anion Gap 21H, Blood Urea Nitrogen 29H, Creatinine 5.0H, Estimat Glomerular Filtration Rate 14.4, Glucose Level 63L, Calcium Level 9.2, Phosphorus Level 4.3 Height (Feet): 5 Height (Inches): 2.00 Weight (Pounds): 165 General Appearance: lethargic EENT: PERRL/EOMI Neck: supple Cardiovascular: normal rate Respiratory/Chest: lungs clear Abdomen: soft Liu Elizondo MD Oct 16, 2016 12:26
--- NOTE | 2016-10-16 13:21 | Cardiac Electrophysiology PN ---
Assessment/Plan Status Narrative Moderate left ventricular enlargement. Global left ventricular hypokinesis. Worse septal apper akinetic s. Left ventricular ejection fraction estimated to be 30-35 %. No evidence of left ventricular hypertrophy. No evidence of pericardial fat or effusion. Severe right atrial enlargement by 2D. Mild right atrial enlargement by 2D. Focal aortic valve sclerosis with adequate cusp excursion Mildly thickened mitral valve leaflets with normal excursion. Mitral annulus and aortic root calcification. Pulmonic valve is well visualized. Normal tricuspid valve structure. IVC dilated at 2.7cm no physiologic collapse with respiration.RA pressure of 20mmHg. Assessment/Plan 1. Chest pain due to cocaine vasospasm. Ruled out for myocardial infarction. Nuclear stress test showed no significant ischemia.Avoid beta-david in view of cocaine use. 2. Severe Cardiomyopathy with EF 30-35%. Avoid Beta david for cocaine use. On Lisinopril 2.5 bid and dialysis. 3. History of hypertension. On Lisinopril 2.5 bid. 4. End-stage renal disease, on hemodialysis. 5. Substance abuse with cocaine. 6. Anemia due to GI bleed. Stool OB positive. S/P EGD and colonoscopy that showed significant diverticulosis, Two polyps removed and Internal hemorrhoid per Dr Bal 7. Diabetes. 8. Back pain getting Kyphoplasty next week. ZOHREH RN Subjective Subjective Still has back pain. No chest pain or SOB. Getting dialysis. Scheduled for kyphoplasty next week. Objective Last 24 Hour Vital Signs Date Time Temp Pulse Resp B/P Pulse Ox O2 Delivery O2 Flow Rate FiO2 10/16/16 11:57 97.0 21 115/71 97 Room Air 10/16/16 08:00 96.8 20 135/58 96 Room Air 10/16/16 06:39 96.9 10/16/16 04:00 97.5 18 121/76 95 Room Air 10/16/16 00:00 97.3 18 114/66 96 Room Air 10/15/16 16:30 96.9 18 118/71 95 Room Air Intake and Output 10/15/16 10/16/16 19:00 07:00 Intake Total 740 ml 600 ml Balance 740 ml 600 ml Intake Oral 740 ml 600 ml # Voids 3 3 # Bowel Movements 2 Laboratory Tests Test 10/16/16 05:00 White Blood Count 6.8 K/UL (4.8-10.8) Red Blood Count 2.89 M/UL (4.70-6.10) L Hemoglobin 9.1 G/DL (14.2-18.0) L Hematocrit 30.6 % (42.0-52.0) L Mean Corpuscular Volume 106 FL (80-99) H Mean Corpuscular Hemoglobin 31.6 PG (27.0-31.0) H Mean Corpuscular Hemoglobin Concent 29.8 G/DL (32.0-36.0) L Red Cell Distribution Width 24.1 % (11.6-14.8) H Platelet Count 437 K/UL (150-450) Mean Platelet Volume 6.9 FL (6.5-10.1) Neutrophils (%) (Auto) 64.5 % (45.0-75.0) Lymphocytes (%) (Auto) 9.6 % (20.0-45.0) L Monocytes (%) (Auto) 19.3 % (1.0-10.0) H Eosinophils (%) (Auto) 3.8 % (0.0-3.0) H Basophils (%) (Auto) 2.8 % (0.0-2.0) H Sodium Level 134 mEQ/L (135-145) L Potassium Level 5.4 mEQ/L (3.4-4.9) H Chloride Level 94 mEQ/L (98-107) L Carbon Dioxide Level 19 mEQ/L (20-30) L Anion Gap 21 (5-15) H Blood Urea Nitrogen 29 mg/dL (7-23) H Creatinine 5.0 mg/dL (0.7-1.2) H Estimat Glomerular Filtration Rate 14.4 mL/min (>60) Glucose Level 63 mg/dL (74-106) L Calcium Level 9.2 mg/dL (8.6-10.2) Phosphorus Level 4.3 mg/dL (2.5-4.8) Objective HEAD AND NECK: No jugular venous distention or carotid bruits. LUNGS: Clear. CARDIOVASCULAR: Regular S1 and S2 with no gallop or murmur. ABDOMEN: Soft and nontender. EXTREMITIES: No pitting edema. Dialysis access in the right chest. DILIA GUERRERO Oct 16, 2016 13:21
--- NOTE | 2016-10-16 14:22 | Neurology Progress Note ---
Interim History Interim History Interim History Mr. Hines feels about the same as yesterday. The back pain is about the same. The legs are strong. He denies any new neurologic symptoms. He is undergoing HD now. Review of Systems Neuro Review of Systems Benign. Objective Physical Exam Last Vital Signs Date Time Temp Pulse Resp B/P Pulse Ox O2 Delivery O2 Flow Rate FiO2 10/16/16 12:45 Room Air 10/16/16 11:57 97.0 21 115/71 97 10/15/16 08:00 87 10/13/16 10:15 5.0 10/12/16 19:05 21 Laboratory Tests Test 10/16/16 05:00 White Blood Count 6.8 K/UL (4.8-10.8) Red Blood Count 2.89 M/UL (4.70-6.10) L Hemoglobin 9.1 G/DL (14.2-18.0) L Hematocrit 30.6 % (42.0-52.0) L Mean Corpuscular Volume 106 FL (80-99) H Mean Corpuscular Hemoglobin 31.6 PG (27.0-31.0) H Mean Corpuscular Hemoglobin Concent 29.8 G/DL (32.0-36.0) L Red Cell Distribution Width 24.1 % (11.6-14.8) H Platelet Count 437 K/UL (150-450) Mean Platelet Volume 6.9 FL (6.5-10.1) Neutrophils (%) (Auto) 64.5 % (45.0-75.0) Lymphocytes (%) (Auto) 9.6 % (20.0-45.0) L Monocytes (%) (Auto) 19.3 % (1.0-10.0) H Eosinophils (%) (Auto) 3.8 % (0.0-3.0) H Basophils (%) (Auto) 2.8 % (0.0-2.0) H Sodium Level 134 mEQ/L (135-145) L Potassium Level 5.4 mEQ/L (3.4-4.9) H Chloride Level 94 mEQ/L (98-107) L Carbon Dioxide Level 19 mEQ/L (20-30) L Anion Gap 21 (5-15) H Blood Urea Nitrogen 29 mg/dL (7-23) H Creatinine 5.0 mg/dL (0.7-1.2) H Estimat Glomerular Filtration Rate 14.4 mL/min (>60) Glucose Level 63 mg/dL (74-106) L Calcium Level 9.2 mg/dL (8.6-10.2) Phosphorus Level 4.3 mg/dL (2.5-4.8) Neurologic Exam Objective PHYSICAL EXAMINATION: GENERAL: He is a well-developed, well-nourished, pleasant black gentleman, lying in bed, in no acute distress. HEAD: Normocephalic and atraumatic. EENT: Examination benign NECK: No neck rigidity was observed. NEUROLOGICAL EXAMINATION: MENTAL STATUS EXAMINATION: He was alert and awake. He was oriented to self, hospital, and October. He did not know the date, year , or name of the hospital. He was able to recall 3/3 words immediately, but could only remember 2/3 words in 1 minute and 3 minutes. He knew that Obkulwinder was President, but could not remember presidents prior to that. His mathematical skills were impaired. His visuospatial function was also impaired. SPEECH: He had no dysarthria. LANGUAGE: He had anomia for low frequency words. CRANIAL NERVE EXAMINATION: II: The visual glaser were intact in the right eye. In the left eye vision was poor . III, IV & : External ocular movements are full in the right eye and restricted in the left eye. V: He had normal facial sensations and the temporales, masseters, and pterygoids function normally. VII: He had normal facial expressions and no facial asymmetry. VIII: He was able to hear well bilaterally and had no nystagmus. IX: The palate moved symmetrically on phonation. X: He had no hoarseness of voice. XI: The sternocleidomastoids and trapezii functioned normally. XII: The tongue was in the midline without any fasciculations or atrophy. MOTOR SYSTEM: The tone was normal in all four extremities. Examination of muscle mass revealed no definite focal wasting however it should be noticed that his right upper extremity was significantly swollen. Examination of power revealed grade 5/5 power in all muscle groups tested. SENSORY EXAMINATION: He had intact sensations to pinprick, light touch, and graphesthesia. COORDINATION: He performed well on [id number] and [id number]-[id number] testing. REFLEXES: 0 at the biceps, triceps, brachioradialis, knees, and ankles. The plantar responses were flexor bilaterally. STANCE & GAIT: Could not be tested as he was undergoing HD. Impression/Recommendations Diagnostic Impression 1. Mr. Demetrius Hines is a 60-year-old, right-handed, black gentleman, with past history of hypertension, diabetes mellitus, end-stage renal disease, and polysubstance abuse with tetrahydrocannabinol and cocaine who was hospitalized at another hospital prior to his hospitalization at [facility] on 09/29/2016. When he came in he did have some mid back pain which was quite severe for the first few days, but has been much better in the last few days. He was evaluated for this pain and was found to have a T7 compression fracture. 2. He feels about the same as yesterday and has not developed any new neurologic symptoms. 3. On neurological examination, at this time, he does have significant problems with orientation, recent and remote memory, higher cognitive function, and language. He also has point tenderness over his mid thoracic spine predominantly in the T6 and T7 region. In addition, the deep tendon reflexes are globally absent. 4. An MRI scan of thoracic spine revealed an acute versus subacute T7 vertebral body compression fracture with reduction of the vertebral height by approximately 40%, a T10 vertebral body abnormal high T2 signal area is also seen which most probably represents either a hemangioma or a neoplasm. 5. The patient's history and neurological examination are most compatible with a T7 compression fracture which is most probably traumatic in nature. He does not demonstrate any signs of spinal cord dysfunction at this point in time. Recommendations 1. Continue present management. 2. Arrange kyphoplasty by radiologist as patient is still in significant pain and desires getting it. Patricia Barron M.D., M.S.P.Neema. PATRICIA BARRON Oct 16, 2016 14:22
--- NOTE | 2016-10-16 15:16 | Infectious Diseases Prog Note ---
Assessment/Plan Problems: (1) Colonization with VRE (vancomycin-resistant enterococcus) Assessment & Plan: keep in contact isolation (2) ESRD (end stage renal disease) on dialysis Assessment & Plan: continue HD as per renal. (3) Cocaine abuse Assessment & Plan: recommend counseling and rehab (4) Chest pain Assessment & Plan: had stress test , cardiology is following (5) Anemia in chronic kidney disease Assessment & Plan: stable, monitor H/H transfuse as needed (6) GIB (gastrointestinal bleeding) Assessment & Plan: monitor H/H transfuse blood as needed Subjective Constitutional: Reports: no symptoms HEENT: Reports: no symptoms Respiratory: Reports: no symptoms Breasts: Reports: no symptoms Cardiovascular: Reports: no symptoms Gastrointestinal/Abdominal: Reports: no symptoms Genitourinary: Reports: no symptoms Neurologic: Reports: no symptoms Psychiatric: Reports: no symptoms Skin: Reports: no symptoms Endocrine: Reports: no symptoms Allergies: Coded Allergies: No Known Allergies (Unverified , 09/28/16) Subjective he was doing well today, denied any symptoms. Objective Vital Signs Last 24 Hour Vital Signs Date Time Temp Pulse Resp B/P Pulse Ox O2 Delivery O2 Flow Rate FiO2 10/16/16 12:45 Room Air 10/16/16 11:57 97.0 21 115/71 97 Room Air 10/16/16 08:00 96.8 20 135/58 96 Room Air 10/16/16 06:39 96.9 10/16/16 04:00 97.5 18 121/76 95 Room Air 10/16/16 00:00 97.3 18 114/66 96 Room Air 10/15/16 16:30 96.9 18 118/71 95 Room Air Height (Feet): 5 Height (Inches): 2.00 Weight (Pounds): 165 General Appearance: WD/WN, no acute distress HEENT: normocephalic, atraumatic, anicteric, mucous membranes moist Respiratory/Chest: chest wall non-tender, lungs clear, normal breath sounds, no respiratory distress, no accessory muscle use Cardiovascular: normal peripheral pulses, normal rate, regular rhythm, no gallop/murmur Abdomen: normal bowel sounds, soft, non tender, no organomegaly, non distended , no mass Extremities: no cyanosis, no clubbing Skin: no rash, no lesions Laboratory Tests Test 10/16/16 05:00 White Blood Count 6.8 K/UL (4.8-10.8) Red Blood Count 2.89 M/UL (4.70-6.10) L Hemoglobin 9.1 G/DL (14.2-18.0) L Hematocrit 30.6 % (42.0-52.0) L Mean Corpuscular Volume 106 FL (80-99) H Mean Corpuscular Hemoglobin 31.6 PG (27.0-31.0) H Mean Corpuscular Hemoglobin Concent 29.8 G/DL (32.0-36.0) L Red Cell Distribution Width 24.1 % (11.6-14.8) H Platelet Count 437 K/UL (150-450) Mean Platelet Volume 6.9 FL (6.5-10.1) Neutrophils (%) (Auto) 64.5 % (45.0-75.0) Lymphocytes (%) (Auto) 9.6 % (20.0-45.0) L Monocytes (%) (Auto) 19.3 % (1.0-10.0) H Eosinophils (%) (Auto) 3.8 % (0.0-3.0) H Basophils (%) (Auto) 2.8 % (0.0-2.0) H Sodium Level 134 mEQ/L (135-145) L Potassium Level 5.4 mEQ/L (3.4-4.9) H Chloride Level 94 mEQ/L (98-107) L Carbon Dioxide Level 19 mEQ/L (20-30) L Anion Gap 21 (5-15) H Blood Urea Nitrogen 29 mg/dL (7-23) H Creatinine 5.0 mg/dL (0.7-1.2) H Estimat Glomerular Filtration Rate 14.4 mL/min (>60) Glucose Level 63 mg/dL (74-106) L Calcium Level 9.2 mg/dL (8.6-10.2) Phosphorus Level 4.3 mg/dL (2.5-4.8) Current Medications Medications (Trade) Dose Ordered Sig/Lillian Route PRN Reason Start Time Stop Time Status Last Admin Dose Admin Acetaminophen (Tylenol) 650 mg Q4H PRN ORAL Fever 10/06/16 15:30 11/05/16 15:29 10/10/16 06:37 Albuterol/ Ipratropium (DuoNeb 0.5-3(2.5)mg/3ml) 3 ml Q4H PRN HHN Shortness of Breath 10/16/16 09:15 10/21/16 09:14 Dextrose (Dextrose 50%) STAT PRN IV Hypoglycemia 10/06/16 19:30 11/05/16 19:29 Epoetin Joseph (Procrit (for ESRD on dialysis)) 5,000 units TUE-TUE-TUE SUBQ 10/06/16 21:00 11/05/16 20:59 10/15/16 20:58 Insulin Aspart (NovoLOG) BEFORE MEALS AND HS SUBQ 10/06/16 16:30 11/05/16 16:29 Lidocaine (Lidoderm 5% PATCH) 1 patch DAILY TDERMAL 10/07/16 09:00 11/06/16 08:59 10/16/16 09:11 Lisinopril (Zestril) 2.5 mg Q12HR ORAL 10/06/16 21:00 11/05/16 20:59 10/13/16 21:02 Menthol/Methyl Salicylate (Bengay) 1 applic FOUR TIMES A DAY TOPIC 10/10/16 13:00 11/09/16 12:59 10/16/16 09:11 Ondansetron HCl (Zofran) 4 mg Q6H PRN IVP Nausea & Vomiting 10/06/16 13:30 11/05/16 13:29 Pantoprazole (Protonix) 40 mg ACBREAKFAST ORAL 10/09/16 06:30 11/06/16 08:59 10/16/16 05:41 Polyethylene Glycol (Miralax) 17 gm DAILYPRN PRN ORAL Constipation 10/06/16 19:30 11/05/16 19:29 10/12/16 21:13 Temazepam (Restoril) 15 mg HSPRN PRN ORAL Insomnia 10/14/16 08:15 10/21/16 08:14 Tramadol HCl (Ultram) 50 mg Q4H PRN ORAL moderate to severe pain 10/14/16 08:15 10/21/16 08:14 10/16/16 05:40 Vitamin B Complex/ Vit C/Folic Acid (Nephrovite) 1 tab DAILY ORAL 10/07/16 09:00 11/06/16 08:59 10/15/16 08:44 Ivania Bhardwaj M.D. Oct 16, 2016 15:16
[2016-10-16 15:45] VITALS: BP 123/56
--- NOTE | 2016-10-16 18:28 | Consultation ---
Consult Note Consult Note T7 compression fx. multiple medical issues. Full note dictated Assessment/Plan Kyphoplasty being scheduled by interventional radiology next week I discussed with patient that due to medical comorbidities, he is high risk for procedure and alternative is bracing. Pt indicated that he wants to proceed with kyphoplast and does not want a brace. ALEXANDRA CHANDRA Oct 16, 2016 18:28
[2016-10-16 20:08] VITALS: BP 123/73
[2016-10-17] VITALS: BP 126/70
--- NOTE | 2016-10-17 01:07 | Consultation ---
DATE OF CONSULTATION: 10/16/2016 SPINE SURGICAL CONSULTATION: REASON FOR CONSULTATION: Spinal compression fracture. HISTORY OF PRESENT ILLNESS: The patient is a 60-year-old gentleman, who was admitted to the hospital with cocaine induced chest pain, pulmonary edema with renal failure, who has been complaining of back pain during the course of workup. It was identified that the patient does have a mid thoracic (T7) compression fracture. The patient is scheduled to undergo kyphoplasty next week per Interventional Radiology. Spine surgical consultation was requested. The patient does not have any neurologic complaints. PAST MEDICAL HISTORY: Significant for malignant hypertension, drug abuse includes a lot of cocaine, hypertension, diabetes, insomnia, constipation, renal failure, cardiac dysfunction with ejection fraction of 30 to 35. PAST SURGICAL HISTORY: Related to dialysis and access. MEDICATIONS: I have reviewed the medication reconciliation report. ALLERGIES: No known drug allergies. PHYSICAL EXAMINATION: GENERAL: The patient is lying flat in the hospital bed. He is complaining of back pain. EXTREMITIES: Formal range of motion was not performed due to the patient's severe pain. I attempted to examine the patient's lower extremities. He does have full sensation in his lower extremities. He does not appear to have any obvious weakness. However, he became upset at the fact that I was examining his lower extremities where his complaint is in the back only. The reflexes appear symmetric. No evidence of Babinski or clonus. DIAGNOSTIC DATA: MRI of the thoracic spine reviewed confirming mid level thoracic compression fracture approximately at or about T7. This appears to be acute on chronic. DIAGNOSES: 1. Spinal compression fracture, mid thoracic level at or about T7, which appears to be subacute. 2. History of hypertension. 3. Hyperthermia, per the records. 4. Cardiac dysfunction, being followed by Cardiology. 5. Renal failure. PLAN: I had a discussion with the patient discussing his options, bracing versus kyphoplasty. The patient is eager to have a kyphoplasty. I did explain that he is at high risk for this procedure. However, he would like to still proceed with this. The kyphoplasty has been scheduled by Interventional Radiology to be performed this upcoming week. At this point, no specific other spine surgical intervention is required. I will sign off. Please reconsult if still necessary. Matty Karo Mitchell DR: Vanessa JOB#: [id number] CC:
[2016-10-17 04:00] VITALS: BP 131/75
[2016-10-17] MEDS: NovoLOG Insulin Flexpen SUBQ SCH ×4 (06:30→21:00)
--- NOTE | 2016-10-17 07:14 | General Progress Note ---
Assessment/Plan Assessment/Plan ASSESSMENT: 1. Anemia secondary to end-stage renal disease. Ferritin is 711. Is on epogen and HD prn basis 2. Acute drop in hgb, consider GI bleed, has been cleared by cards, pending colo 3. Thrombocytopenia potentially secondary to underlying infection. hep and hiv - , now improved 4. Coagulopathy INR is 1.2, improved 5. Diabetes mellitus. 6. End-stage renal disease on hemodialysis. 7. Cocaine use history. RECOMMENDATIONS: 1. Monitor counts. 2. Transfuse if hemoglobin < 7.0 3. Continue epogen 4. Followup GI recs - is now s/p colo 5. Ultrasound of the abdomen has been reviewed 6. Anemia workup has reviewed 7. Followup on Nephrology, Pulmonary, GI, Cards recs 8. Transfuse if plts <20k 9. DVT prophylaxis with scds 10. GI prophylaxis ppi 11. Pain control. 12. staff. Thank you, Jean-Calude Lopez MD Subjective Constitutional: Reports: no symptoms HEENT: Reports: no symptoms Cardiovascular: Reports: no symptoms Respiratory: Reports: no symptoms Gastrointestinal/Abdominal: Reports: poor appetite Genitourinary: Reports: no symptoms 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: Reports: no symptoms Endocrine: Reports: no symptoms Hematologic/Lymphatic: Reports: anemia Allergies: Coded Allergies: No Known Allergies (Unverified , 09/28/16) Subjective stable, no fevers, not bleeding Objective Last 24 Hour Vital Signs Date Time Temp Pulse Resp B/P Pulse Ox O2 Delivery O2 Flow Rate FiO2 10/17/16 04:00 97.5 97 20 131/75 96 Room Air 10/17/16 00:00 97.7 99 20 126/70 96 Room Air 10/16/16 22:35 102 18 Room Air 10/16/16 20:27 123/73 10/16/16 20:08 97.9 92 21 123/73 94 Room Air 10/16/16 15:45 96.9 94 18 123/56 97 Room Air 10/16/16 15:45 Room Air 10/16/16 12:45 Room Air 10/16/16 11:57 97.0 21 115/71 97 Room Air 10/16/16 08:00 96.8 20 135/58 96 Room Air Intake and Output 10/16/16 10/17/16 19:00 07:00 Intake Total 360 ml 598 ml Output Total 1790 ml Balance -1430 ml 598 ml Intake Oral 360 ml 598 ml Hemodialysis UF 1790 ml # Voids 2 2 # Bowel Movements 1 Height (Feet): 5 Height (Inches): 2.00 Weight (Pounds): 161 General Appearance: no apparent distress EENT: TMs normal Neck: normal alignment Cardiovascular: regular rhythm Respiratory/Chest: lungs clear Abdomen: normal bowel sounds Extremities: non-tender Edema: 1+ Leg (L), 1+ Leg (R) Edema: mild edema Neurologic: alert Skin: warm/dry JEAN-CLAUDE LOPEZ Oct 17, 2016 07:14
[2016-10-17 08:00] VITALS: BP 121/73
[2016-10-17] MEDS: Nephrovite tab ORAL SCH (09:06)
[2016-10-17] MEDS: Lisinopril 2.5mg tab ORAL SCH ×2 (09:06→21:21)
[2016-10-17] MEDS: Analgesic Balm 15gm TOPIC SCH ×4 (09:10→21:00)
--- NOTE | 2016-10-17 09:54 | General Progress Note ---
Assessment/Plan Assessment/Plan (1) Cocaine abuse (2) Chest pain (3) CHF (4) ESRD on Hemodialysis (5) Lumbar sprain s/p fall (6) T spine compression fracture Whole body bone scan results pending. Kyphoplasty as per spinal surgeon. Pt will be continued on Bengay cream, Lidoderm patch and tramadol. Pt was d/w Dr. Rodriguez and he concurred. Subjective Date patient seen: Oct 17, 2016 Time patient seen: 08:45 - am Allergies: Coded Allergies: No Known Allergies (Unverified , 09/28/16) Subjective REVIEW OF SYSTEMS: Denies rash, fever, chills, sweating, dizziness, drowsiness, blurred vision, sore throat, or change in weight. No nausea, vomiting, diarrhea, or blood urine. No bowel or bladder incontinence. No dysuria. c/o back pain SUBJECTIVE: Pt was seen by surgeon and will be sent for kyphoplasty Body scan pending. Pain is tolerated on the medications. Objective Last 24 Hour Vital Signs Date Time Temp Pulse Resp B/P Pulse Ox O2 Delivery O2 Flow Rate FiO2 10/17/16 09:06 121/73 10/17/16 08:00 96.4 97 20 121/73 97 Room Air 10/17/16 07:55 81 18 Room Air 21 10/17/16 04:00 97.5 97 20 131/75 96 Room Air 10/17/16 00:00 97.7 99 20 126/70 96 Room Air 10/16/16 22:35 102 18 Room Air 10/16/16 20:27 123/73 10/16/16 20:08 97.9 92 21 123/73 94 Room Air 10/16/16 15:45 96.9 94 18 123/56 97 Room Air 10/16/16 15:45 Room Air 10/16/16 12:45 Room Air 10/16/16 11:57 97.0 21 115/71 97 Room Air Intake and Output 10/16/16 10/17/16 19:00 07:00 Intake Total 360 ml 598 ml Output Total 1790 ml Balance -1430 ml 598 ml Intake Oral 360 ml 598 ml Hemodialysis UF 1790 ml # Voids 2 2 # Bowel Movements 1 Height (Feet): 5 Height (Inches): 2.00 Weight (Pounds): 161 Objective PHYSICAL EXAMINATION: GENERAL: Alert, awake, and oriented. HEENT: PERRLA. NECK: Range of motion is full in all directions. No tenderness to paracervical muscles. No adenopathy. LUNGS: Decreased breath sounds bilaterally. HEART: S1 and S2, regular. ABDOMEN: Obese. BACK: Range of motion is decreased in flexion and extension with tenderness to paraspinous and trapezius muscles. EXTREMITIES: No cyanosis, no clubbing, edema noted on RUE. NEURO: No changes. Procedure: MRI T Spine no Contrast Impression: Positive for acute or subacute T7 vertebral body compression fracture. T10 vertebral body 14 mm abnormal high T2 signal focus. While possibly an atypical hemangioma, the possibility of neoplasm such as metastatic disease should also be considered. ARRON EDWARD Oct 17, 2016 09:54
--- NOTE | 2016-10-17 10:02 | General Progress Note ---
Assessment/Plan Status: stable Assessment/Plan Status: (1) ESRD (end stage renal disease) on dialysis (2) Chest pain (3) Cocaine abuse (4) Anemia in chronic kidney disease (5) ? DVT right UE (6) Cardiomyopathy: Global left ventricular hypokinesis. Worse septal apper akinetic s. Left ventricular ejection fraction estimated to be 30-35 %. MR: Positive for acute or subacute T7 vertebral body compression fracture. Plan: had dialysis access placed 10/12 HD 10/16 next 10/19 Due Kyphoplasty On marcie inhibitors- per consultants ? DC planning after Kyphoplasty? Subjective ROS Limited/Unobtainable: Yes Allergies: Coded Allergies: No Known Allergies (Unverified , 09/28/16) Objective Last 24 Hour Vital Signs Date Time Temp Pulse Resp B/P Pulse Ox O2 Delivery O2 Flow Rate FiO2 10/17/16 09:06 121/73 10/17/16 08:00 96.4 97 20 121/73 97 Room Air 10/17/16 07:55 81 18 Room Air 21 10/17/16 04:00 97.5 97 20 131/75 96 Room Air 10/17/16 00:00 97.7 99 20 126/70 96 Room Air 10/16/16 22:35 102 18 Room Air 10/16/16 20:27 123/73 10/16/16 20:08 97.9 92 21 123/73 94 Room Air 10/16/16 15:45 96.9 94 18 123/56 97 Room Air 10/16/16 15:45 Room Air 10/16/16 12:45 Room Air 10/16/16 11:57 97.0 21 115/71 97 Room Air Intake and Output 10/16/16 10/17/16 19:00 07:00 Intake Total 360 ml 598 ml Output Total 1790 ml Balance -1430 ml 598 ml Intake Oral 360 ml 598 ml Hemodialysis UF 1790 ml # Voids 2 2 # Bowel Movements 1 Height (Feet): 5 Height (Inches): 2.00 Weight (Pounds): 161 General Appearance: no apparent distress Objective no change in PE KALEY RIOS Oct 17, 2016 10:02
--- NOTE | 2016-10-17 10:31 | Diagnostic Imaging Report ---
Indication: Back pain Findings: 2 views of the thoracic spine were obtained. There is a fracture of the T7 vertebra which is diminished in height. Acuity of this injury is unknown. Please correlate clinically. The bones appears osteopenic. There is no malalignment. Mild calcification of aorta noted. Impression: T7 vertebral compression fracture age indeterminate. Consider MR for further evaluation as warranted.
--- NOTE | 2016-10-17 11:55 | General Progress Note ---
Assessment/Plan Problem List: (1) GIB (gastrointestinal bleeding) ICD Codes: K92.2 - Gastrointestinal hemorrhage, unspecified SNOMED: 28512988 (2) Cocaine abuse ICD Codes: F14.10 - Cocaine abuse, uncomplicated SNOMED: 87384703, 906958766 (3) ESRD (end stage renal disease) on dialysis ICD Codes: N18.6 - End stage renal disease; Z99.2 - Dependence on renal dialysis SNOMED: 665675631 (4) Anemia in chronic kidney disease ICD Codes: N18.9 - Chronic kidney disease, unspecified; D63.1 - Anemia in chronic kidney disease SNOMED: 276147335, 582589196 Assessment/Plan s/p EGD and colonoscopy no active GIB fu labs Subjective ROS Limited/Unobtainable: Yes Allergies: Coded Allergies: No Known Allergies (Unverified , 09/28/16) Subjective no event Objective Last 24 Hour Vital Signs Date Time Temp Pulse Resp B/P Pulse Ox O2 Delivery O2 Flow Rate FiO2 10/17/16 09:06 121/73 10/17/16 08:00 96.4 97 20 121/73 97 Room Air 10/17/16 07:55 81 18 Room Air 21 10/17/16 04:00 97.5 97 20 131/75 96 Room Air 10/17/16 00:00 97.7 99 20 126/70 96 Room Air 10/16/16 22:35 102 18 Room Air 10/16/16 20:27 123/73 10/16/16 20:08 97.9 92 21 123/73 94 Room Air 10/16/16 15:45 96.9 94 18 123/56 97 Room Air 10/16/16 15:45 Room Air 10/16/16 12:45 Room Air 10/16/16 11:57 97.0 21 115/71 97 Room Air Intake and Output 10/16/16 10/17/16 19:00 07:00 Intake Total 360 ml 598 ml Output Total 1790 ml Balance -1430 ml 598 ml Intake Oral 360 ml 598 ml Hemodialysis UF 1790 ml # Voids 2 2 # Bowel Movements 1 Height (Feet): 5 Height (Inches): 2.00 Weight (Pounds): 161 General Appearance: alert EENT: normal ENT inspection Neck: supple Cardiovascular: normal rate Respiratory/Chest: decreased breath sounds Abdomen: normal bowel sounds, non tender, soft Extremities: non-tender JEANETTE WILLETT Oct 17, 2016 11:55
[2016-10-17 12:00] VITALS: BP 117/73
--- NOTE | 2016-10-17 13:29 | Pulmonology Progress Note ---
Assessment/Plan Assessment/Plan ASSESSMENT atypical chest pain ( after cocaine abuse) 2 to vasospasm severe cardiomyopathy moderate pulmonary HTN severe MR severe TR acute anemia 2 to GI bleeding and anemia of chronic disease s/p blood transfusion s/p EGD and colonoscopy ESRD, on HD HTN DM cocaine abuse T 7 vertebral compression fracture -acute vs subacute PLAN OF CARE MS floor serial troponin negative, cardio follows, ruled out for ACS CP after cocaine abuse due to vasospasm -as per cardio, ECHO with EF 30-35%, severe MR and TR, RVSP of 50 c/w moderate pulmonary HTN stress test no significant ischemia as per cardio O2 HHN prn CXR with cardiomegaly, CHF BP management with CCB ,avoid BB due to cocaine use BS management with SS of insulin stool OB + x 3 GI follows s/p EGD and colon with findings of diverticulosis, 2 polyps, s/p biopsy, internal hemorrhoids gastric biopsy no H pylori, no dysplasia, no metaplasia PPI heme follows stool OB + x 3 monitor HH, transfuse prn , remains in baseline on EPO, continue HD as per nephro hyperkalemia management - as per nephro hepatitis panel negative Abdominal US + ascites MTI T spine -positive for acute or subacute T7 vertebral body compression fracture, pain management, pain specialist follows Venous Duplex RUE negative juvenile counselor on avoidance of cocaine DVT, GI prophylaxis dc plan as per PMD case discussed and evaluated by supervising physician Subjective Allergies: Coded Allergies: No Known Allergies (Unverified , 09/28/16) Subjective afebrile, no leucocytosis on RA no signs of respiratory distress denies dizziness, blackout no SOB, no chest pain HH stable , at baseline intermittent c/o back pain Objective Last 24 Hour Vital Signs Date Time Temp Pulse Resp B/P Pulse Ox O2 Delivery O2 Flow Rate FiO2 10/17/16 09:06 121/73 10/17/16 08:00 96.4 97 20 121/73 97 Room Air 10/17/16 07:55 81 18 Room Air 21 10/17/16 04:00 97.5 97 20 131/75 96 Room Air 10/17/16 00:00 97.7 99 20 126/70 96 Room Air 10/16/16 22:35 102 18 Room Air 10/16/16 20:27 123/73 10/16/16 20:08 97.9 92 21 123/73 94 Room Air 10/16/16 15:45 96.9 94 18 123/56 97 Room Air 10/16/16 15:45 Room Air Intake and Output 10/16/16 10/17/16 19:00 07:00 Intake Total 360 ml 598 ml Output Total 1790 ml Balance -1430 ml 598 ml Intake Oral 360 ml 598 ml Hemodialysis UF 1790 ml # Voids 2 2 # Bowel Movements 1 Objective General Appearance: WD/WN, no acute distress HEENT: normocephalic, atraumatic, anicteric Respiratory/Chest: chest wall non-tender, lungs clear with moderate air entry Cardiovascular: normal rate, regular rhythm Abdomen: normal bowel sounds, soft, non tender Extremities: no edema, pedal pulses normal 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: no motor/sensory deficits, alert, oriented x 3, responsive Musculoskeletal: normal muscle bulk Current Medications Medications (Trade) Dose Ordered Sig/Lillian Route PRN Reason Start Time Stop Time Status Last Admin Dose Admin Acetaminophen (Tylenol) 650 mg Q4H PRN ORAL Fever 10/06/16 15:30 11/05/16 15:29 10/10/16 06:37 Albuterol/ Ipratropium (DuoNeb 0.5-3(2.5)mg/3ml) 3 ml Q4H PRN HHN Shortness of Breath 10/16/16 09:15 10/21/16 09:14 Dextrose (Dextrose 50%) STAT PRN IV Hypoglycemia 10/06/16 19:30 11/05/16 19:29 Epoetin Joseph (Procrit (for ESRD on dialysis)) 5,000 units TUE-TUE-TUE SUBQ 10/06/16 21:00 11/05/16 20:59 10/15/16 20:58 Insulin Aspart (NovoLOG) BEFORE MEALS AND HS SUBQ 10/06/16 16:30 11/05/16 16:29 Lidocaine (Lidoderm 5% PATCH) 1 patch DAILY TDERMAL 10/07/16 09:00 11/06/16 08:59 10/17/16 09:07 Lisinopril (Zestril) 2.5 mg Q12HR ORAL 10/06/16 21:00 11/05/16 20:59 10/17/16 09:06 Menthol/Methyl Salicylate (Bengay) 1 applic FOUR TIMES A DAY TOPIC 10/10/16 13:00 11/09/16 12:59 10/17/16 09:10 Ondansetron HCl (Zofran) 4 mg Q6H PRN IVP Nausea & Vomiting 10/06/16 13:30 11/05/16 13:29 Pantoprazole (Protonix) 40 mg ACBREAKFAST ORAL 10/09/16 06:30 11/06/16 08:59 10/17/16 06:56 Polyethylene Glycol (Miralax) 17 gm DAILYPRN PRN ORAL Constipation 10/06/16 19:30 11/05/16 19:29 10/12/16 21:13 Temazepam (Restoril) 15 mg HSPRN PRN ORAL Insomnia 10/14/16 08:15 10/21/16 08:14 10/17/16 02:33 Tramadol HCl (Ultram) 50 mg Q4H PRN ORAL moderate to severe pain 10/14/16 08:15 10/21/16 08:14 10/16/16 05:40 Vitamin B Complex/ Vit C/Folic Acid (Nephrovite) 1 tab DAILY ORAL 10/07/16 09:00 11/06/16 08:59 10/17/16 09:06 Jevon ([facility])Kate NP Oct 17, 2016 13:29
--- NOTE | 2016-10-17 13:34 | Neurology Progress Note ---
Interim History Interim History Interim History Mr. Hines feels a little better. The back pain is better - but still bothersome. The legs are strong. He denies any new neurologic symptoms. He specifically denies any new weakness, numbness, speech or language problems. Review of Systems Neuro Review of Systems Benign. Objective Physical Exam Last Vital Signs Date Time Temp Pulse Resp B/P Pulse Ox O2 Delivery O2 Flow Rate FiO2 10/17/16 09:06 121/73 10/17/16 08:00 96.4 97 20 97 Room Air 10/17/16 07:55 21 10/13/16 10:15 5.0 Neurologic Exam Objective PHYSICAL EXAMINATION: GENERAL: He is a well-developed, well-nourished, pleasant black gentleman, sitting on a commode, in no acute distress. HEAD: Normocephalic and atraumatic. EENT: Examination benign NECK: No neck rigidity was observed. NEUROLOGICAL EXAMINATION: MENTAL STATUS EXAMINATION: He was alert and awake. He was oriented to self, hospital, and October. He did not know the date, year , or name of the hospital. He was able to recall 3/3 words immediately, but could only remember 2/3 words in 1 minute and 3 minutes. He knew that Obama was President, but could not remember presidents prior to that. His mathematical skills were impaired. His visuospatial function was also impaired. SPEECH: He had no dysarthria. LANGUAGE: He had anomia for low frequency words. CRANIAL NERVE EXAMINATION: II: The visual glaser were intact in the right eye. In the left eye vision was poor . III, IV & : External ocular movements are full in the right eye and restricted in the left eye. V: He had normal facial sensations and the temporales, masseters, and pterygoids function normally. VII: He had normal facial expressions and no facial asymmetry. VIII: He was able to hear well bilaterally and had no nystagmus. IX: The palate moved symmetrically on phonation. X: He had no hoarseness of voice. XI: The sternocleidomastoids and trapezii functioned normally. XII: The tongue was in the midline without any fasciculations or atrophy. MOTOR SYSTEM: The tone was normal in all four extremities. Examination of muscle mass revealed no definite focal wasting however it should be noticed that his right upper extremity was significantly swollen. Examination of power revealed grade 5/5 power in all muscle groups tested. SENSORY EXAMINATION: He had intact sensations to pinprick, light touch, and graphesthesia. COORDINATION: He performed well on [id number] and [id number] testing. REFLEXES: 0 at the biceps, triceps, brachioradialis, knees, and ankles. The plantar responses were flexor bilaterally. STANCE & GAIT: Were deferred as he was on the commode. Impression/Recommendations Diagnostic Impression 1. Mr. Demetrius Hines is a 60-year-old, right-handed, black gentleman, with past history of hypertension, diabetes mellitus, end-stage renal disease, and polysubstance abuse with tetrahydrocannabinol and cocaine who was hospitalized at another hospital prior to his hospitalization at [facility] on 09/29/2016. When he came in he did have some mid back pain which was quite severe for the first few days, but has been much better in the last few days. He was evaluated for this pain and was found to have a T7 compression fracture. 2. He feels a little better with regards to the back pain and has not developed any new neurologic symptoms. 3. On neurological examination, at this time, he does have significant problems with orientation, recent and remote memory, higher cognitive function, and language. He also has point tenderness over his mid thoracic spine predominantly in the T6 and T7 region. In addition, the deep tendon reflexes are globally absent. 4. An MRI scan of thoracic spine revealed an acute versus subacute T7 vertebral body compression fracture with reduction of the vertebral height by approximately 40%, a T10 vertebral body abnormal high T2 signal area is also seen which most probably represents either a hemangioma or a neoplasm. 5. The patient's history and neurological examination are most compatible with a T7 compression fracture which is most probably traumatic in nature. He does not demonstrate any signs of spinal cord dysfunction at this point in time. Recommendations 1. Continue present management. 2. Kyphoplasty by radiologist as patient is still in significant pain and desires getting it. Patricia Barron M.D., M.S.P.PATRICIA ANGUIANO Oct 17, 2016 13:34
--- NOTE | 2016-10-17 13:53 | Cardiac Electrophysiology PN ---
Assessment/Plan Status Narrative Moderate left ventricular enlargement. Global left ventricular hypokinesis. Worse septal apper akinetic s. Left ventricular ejection fraction estimated to be 30-35 %. No evidence of left ventricular hypertrophy. No evidence of pericardial fat or effusion. Severe right atrial enlargement by 2D. Mild right atrial enlargement by 2D. Focal aortic valve sclerosis with adequate cusp excursion Mildly thickened mitral valve leaflets with normal excursion. Mitral annulus and aortic root calcification. Pulmonic valve is well visualized. Normal tricuspid valve structure. IVC dilated at 2.7cm no physiologic collapse with respiration.RA pressure of 20mmHg. Assessment/Plan 1. Chest pain due to cocaine vasospasm. Ruled out for myocardial infarction. Nuclear stress test showed no significant ischemia. Avoid beta-david in view of cocaine use. 2. Severe Cardiomyopathy with EF 30-35%. Off Beta david for cocaine use. On Lisinopril 2.5 bid and dialysis. 3. History of hypertension. On Lisinopril 2.5 bid. 4. End-stage renal disease, on hemodialysis. 5. Substance abuse with cocaine. 6. Anemia due to GI bleed. Stool OB positive. S/P EGD and colonoscopy that showed significant diverticulosis, Two polyps removed and Internal hemorrhoid per Dr Bal 7. Diabetes. 8. Back pain, awaiting Kyphoplasty by radiology as MRI scan of thoracic spine revealed an acute versus subacute T7 vertebral body compression fracture with reduction of the vertebral height by approximately 40%, ZOHREH RN Subjective Subjective Still has back pain but better. No chest pain or SOB. S/P dialysis yesterday. Scheduled for kyphoplasty next week. Objective Last 24 Hour Vital Signs Date Time Temp Pulse Resp B/P Pulse Ox O2 Delivery O2 Flow Rate FiO2 10/17/16 09:06 121/73 10/17/16 08:00 96.4 97 20 121/73 97 Room Air 10/17/16 07:55 81 18 Room Air 21 10/17/16 04:00 97.5 97 20 131/75 96 Room Air 10/17/16 00:00 97.7 99 20 126/70 96 Room Air 10/16/16 22:35 102 18 Room Air 10/16/16 20:27 123/73 10/16/16 20:08 97.9 92 21 123/73 94 Room Air 10/16/16 15:45 96.9 94 18 123/56 97 Room Air 10/16/16 15:45 Room Air Intake and Output 10/16/16 10/17/16 19:00 07:00 Intake Total 360 ml 598 ml Output Total 1790 ml Balance -1430 ml 598 ml Intake Oral 360 ml 598 ml Hemodialysis UF 1790 ml # Voids 2 2 # Bowel Movements 1 Labs Test 10/16/16 05:00 White Blood Count 6.8 K/UL (4.8-10.8) Red Blood Count 2.89 M/UL (4.70-6.10) Hemoglobin 9.1 G/DL (14.2-18.0) Hematocrit 30.6 % (42.0-52.0) Mean Corpuscular Volume 106 FL (80-99) Mean Corpuscular Hemoglobin 31.6 PG (27.0-31.0) Mean Corpuscular Hemoglobin Concent 29.8 G/DL (32.0-36.0) Red Cell Distribution Width 24.1 % (11.6-14.8) Platelet Count 437 K/UL (150-450) Mean Platelet Volume 6.9 FL (6.5-10.1) Neutrophils (%) (Auto) 64.5 % (45.0-75.0) Lymphocytes (%) (Auto) 9.6 % (20.0-45.0) Monocytes (%) (Auto) 19.3 % (1.0-10.0) Eosinophils (%) (Auto) 3.8 % (0.0-3.0) Basophils (%) (Auto) 2.8 % (0.0-2.0) Sodium Level 134 mEQ/L (135-145) Potassium Level 5.4 mEQ/L (3.4-4.9) Chloride Level 94 mEQ/L (98-107) Carbon Dioxide Level 19 mEQ/L (20-30) Anion Gap 21 (5-15) Blood Urea Nitrogen 29 mg/dL (7-23) Creatinine 5.0 mg/dL (0.7-1.2) Estimat Glomerular Filtration Rate 14.4 mL/min (>60) Glucose Level 63 mg/dL (74-106) Calcium Level 9.2 mg/dL (8.6-10.2) Phosphorus Level 4.3 mg/dL (2.5-4.8) Current Medications Medications (Trade) Dose Ordered Sig/Lillian Route PRN Reason Start Time Stop Time Status Last Admin Dose Admin Acetaminophen (Tylenol) 650 mg Q4H PRN ORAL Fever 10/06/16 15:30 11/05/16 15:29 10/10/16 06:37 Albuterol/ Ipratropium (DuoNeb 0.5-3(2.5)mg/3ml) 3 ml Q4H PRN HHN Shortness of Breath 10/16/16 09:15 10/21/16 09:14 Dextrose (Dextrose 50%) STAT PRN IV Hypoglycemia 10/06/16 19:30 11/05/16 19:29 Epoetin Joseph (Procrit (for ESRD on dialysis)) 5,000 units MON-WED-TUE SUBQ 10/06/16 21:00 11/05/16 20:59 10/15/16 20:58 Insulin Aspart (NovoLOG) BEFORE MEALS AND HS SUBQ 10/06/16 16:30 11/05/16 16:29 Lidocaine (Lidoderm 5% PATCH) 1 patch DAILY TDERMAL 10/07/16 09:00 11/06/16 08:59 10/17/16 09:07 Lisinopril (Zestril) 2.5 mg Q12HR ORAL 10/06/16 21:00 11/05/16 20:59 10/17/16 09:06 Menthol/Methyl Salicylate (Bengay) 1 applic FOUR TIMES A DAY TOPIC 10/10/16 13:00 11/09/16 12:59 10/17/16 09:10 Ondansetron HCl (Zofran) 4 mg Q6H PRN IVP Nausea & Vomiting 10/06/16 13:30 11/05/16 13:29 Pantoprazole (Protonix) 40 mg ACBREAKFAST ORAL 10/09/16 06:30 11/06/16 08:59 10/17/16 06:56 Polyethylene Glycol (Miralax) 17 gm DAILYPRN PRN ORAL Constipation 10/06/16 19:30 11/05/16 19:29 10/12/16 21:13 Temazepam (Restoril) 15 mg HSPRN PRN ORAL Insomnia 10/14/16 08:15 10/21/16 08:14 10/17/16 02:33 Tramadol HCl (Ultram) 50 mg Q4H PRN ORAL moderate to severe pain 10/14/16 08:15 10/21/16 08:14 10/16/16 05:40 Vitamin B Complex/ Vit C/Folic Acid (Nephrovite) 1 tab DAILY ORAL 10/07/16 09:00 11/06/16 08:59 10/17/16 09:06 Objective HEAD AND NECK: No jugular venous distention or carotid bruits. LUNGS: Clear. CARDIOVASCULAR: Regular S1 and S2 with no gallop or murmur. ABDOMEN: Soft and nontender. EXTREMITIES: No pitting edema. Dialysis access in the right chest. DILIA GUERRERO Oct 17, 2016 13:53
[2016-10-17 16:00] VITALS: BP 115/70
--- NOTE | 2016-10-17 18:16 | Infectious Diseases Prog Note ---
Assessment/Plan Problems: (1) Colonization with VRE (vancomycin-resistant enterococcus) Assessment & Plan: keep in contact isolation (2) ESRD (end stage renal disease) on dialysis Assessment & Plan: continue HD as per renal. (3) Cocaine abuse Assessment & Plan: recommend counseling and rehab (4) Chest pain Assessment & Plan: had stress test , cardiology is following (5) Anemia in chronic kidney disease Assessment & Plan: stable, monitor H/H transfuse as needed (6) GIB (gastrointestinal bleeding) Assessment & Plan: monitor H/H transfuse blood as needed Subjective Constitutional: Reports: no symptoms HEENT: Reports: no symptoms Respiratory: Reports: no symptoms Breasts: Reports: no symptoms Cardiovascular: Reports: no symptoms Gastrointestinal/Abdominal: Reports: no symptoms Genitourinary: Reports: no symptoms Neurologic: Reports: no symptoms Psychiatric: Reports: no symptoms Skin: Reports: no symptoms Endocrine: Reports: no symptoms Allergies: Coded Allergies: No Known Allergies (Unverified , 09/28/16) Subjective he was doing well today, denied any symptoms. Objective Vital Signs Last 24 Hour Vital Signs Date Time Temp Pulse Resp B/P Pulse Ox O2 Delivery O2 Flow Rate FiO2 10/17/16 16:00 97.2 101 20 115/70 93 Room Air 10/17/16 12:00 96.6 108 20 117/73 100 Room Air 10/17/16 09:06 121/73 10/17/16 08:00 96.4 97 20 121/73 97 Room Air 10/17/16 07:55 81 18 Room Air 21 10/17/16 04:00 97.5 97 20 131/75 96 Room Air 10/17/16 00:00 97.7 99 20 126/70 96 Room Air 10/16/16 22:35 102 18 Room Air 10/16/16 20:27 123/73 10/16/16 20:08 97.9 92 21 123/73 94 Room Air Height (Feet): 5 Height (Inches): 2.00 Weight (Pounds): 161 General Appearance: WD/WN, no acute distress HEENT: normocephalic Respiratory/Chest: normal breath sounds, no respiratory distress, no accessory muscle use Cardiovascular: normal peripheral pulses, normal rate, regular rhythm Abdomen: normal bowel sounds, soft, non tender, no organomegaly, non distended , no mass Extremities: no cyanosis, no clubbing Skin: no rash, no lesions, no ulcers Current Medications Medications (Trade) Dose Ordered Sig/Lillian Route PRN Reason Start Time Stop Time Status Last Admin Dose Admin Acetaminophen (Tylenol) 650 mg Q4H PRN ORAL Fever 10/06/16 15:30 11/05/16 15:29 10/10/16 06:37 Albuterol/ Ipratropium (DuoNeb 0.5-3(2.5)mg/3ml) 3 ml Q4H PRN HHN Shortness of Breath 10/16/16 09:15 10/21/16 09:14 Dextrose (Dextrose 50%) STAT PRN IV Hypoglycemia 10/06/16 19:30 11/05/16 19:29 Epoetin Joseph (Procrit (for ESRD on dialysis)) 5,000 units TUE-TUE-TUE SUBQ 10/06/16 21:00 11/05/16 20:59 10/15/16 20:58 Insulin Aspart (NovoLOG) BEFORE MEALS AND HS SUBQ 10/06/16 16:30 11/05/16 16:29 Lidocaine (Lidoderm 5% PATCH) 1 patch DAILY TDERMAL 10/07/16 09:00 11/06/16 08:59 10/17/16 09:07 Lisinopril (Zestril) 2.5 mg Q12HR ORAL 10/06/16 21:00 11/05/16 20:59 10/17/16 09:06 Menthol/Methyl Salicylate (Bengay) 1 applic FOUR TIMES A DAY TOPIC 10/10/16 13:00 11/09/16 12:59 10/17/16 09:10 Ondansetron HCl (Zofran) 4 mg Q6H PRN IVP Nausea & Vomiting 10/06/16 13:30 11/05/16 13:29 Pantoprazole (Protonix) 40 mg ACBREAKFAST ORAL 10/09/16 06:30 11/06/16 08:59 10/17/16 06:56 Polyethylene Glycol (Miralax) 17 gm DAILYPRN PRN ORAL Constipation 10/06/16 19:30 11/05/16 19:29 10/12/16 21:13 Temazepam (Restoril) 15 mg HSPRN PRN ORAL Insomnia 10/14/16 08:15 10/21/16 08:14 10/17/16 02:33 Tramadol HCl (Ultram) 50 mg Q4H PRN ORAL moderate to severe pain 10/14/16 08:15 10/21/16 08:14 10/16/16 05:40 Vitamin B Complex/ Vit C/Folic Acid (Nephrovite) 1 tab DAILY ORAL 10/07/16 09:00 11/06/16 08:59 10/17/16 09:06 Ivania Bhardwaj M.D. Oct 17, 2016 18:16
[2016-10-17 20:00] VITALS: BP 135/59
[2016-10-18] VITALS (7 sets, daily range): BP systolic 106–128; BP diastolic 60–90
[2016-10-18 04:40] LABS: BASOPHILS % (AUTO) 2.6 % (0.0-2.0); EOSINOPHILS % (AUTO) 1.5 % (0.0-3.0); LYMPHOCYTES % (AUTO) 8.5 % (20.0-45.0); MEAN CORPUSCULAR HEMOGLOBIN 31.9 PG (27.0-31.0); MEAN CORPUSCULAR HGB CONC 29.1 G/DL (32.0-36.0); MEAN CORPUSCULAR VOLUME 110 FL (80-99); MEAN PLATELET VOLUME 5.8 FL (6.5-10.1); MONOCYTES % (AUTO) 11.3 % (1.0-10.0); NEUTROPHILS % (AUTO) 76.2 % (45.0-75.0); PLATELET COUNT 359 K/UL (150-450); RED BLOOD COUNT 2.59 M/UL (4.70-6.10); RED CELL DISTRIBUTION WIDTH 23.7 % (11.6-14.8); WHITE BLOOD COUNT 8.6 K/UL (4.8-10.8)
[2016-10-18 04:54] LABS: INR 1.3 (0.9-1.1); PROTHROMBIN TIME 13.3 SEC (9.30-11.50)
[2016-10-18] MEDS: NovoLOG Insulin Flexpen SUBQ SCH ×4 (06:22→20:25)
[2016-10-18 07:20] LABS: CALCIUM 9.3 mg/dL (8.6-10.2); CREATININE 5.3 mg/dL (0.7-1.2); CRP QUANT 4.1 mg/dL (< 0.5); GLOMERULAR FILTRATION RATE 13.5 mL/min (>60); MAGNESIUM 1.7 mg/dL (1.7-2.5); PHOSPHORUS 4.3 mg/dL (2.5-4.8); POTASSIUM 4.3 mEQ/L (3.4-4.9); TOTAL PROTEIN 6.5 g/dL (6.6-8.7)
[2016-10-18 07:53] LABS: BILIRUBIN,DIRECT 1.1 mg/dL (0.1-0.3)
--- NOTE | 2016-10-18 08:33 | General Progress Note ---
Assessment/Plan Assessment/Plan (1) Cocaine abuse (2) Chest pain (3) CHF (4) ESRD on Hemodialysis (5) Lumbar sprain s/p fall (6) T spine compression fracture Whole body bone scan results pending. Kyphoplasty as per spinal surgeon. Pt will be continued on Bengay cream, Lidoderm patch and tramadol. Pt was d/w Dr. Rodriguez and he concurred. Subjective Date patient seen: Oct 18, 2016 Time patient seen: 07:45 - am Allergies: Coded Allergies: No Known Allergies (Unverified , 09/28/16) Subjective REVIEW OF SYSTEMS: Denies rash, fever, chills, sweating, dizziness, drowsiness, blurred vision, sore throat, or change in weight. No nausea, vomiting, diarrhea, or blood urine. No bowel or bladder incontinence. No dysuria. c/o back pain SUBJECTIVE: Pain is a 4/10. Whole body scan pending results. Objective Last 24 Hour Vital Signs Date Time Temp Pulse Resp B/P Pulse Ox O2 Delivery O2 Flow Rate FiO2 10/18/16 04:00 97.6 102 19 126/74 95 Room Air 10/18/16 00:00 97.7 105 20 128/80 95 Room Air 10/17/16 21:21 135/59 10/17/16 20:13 98 18 Room Air 21 10/17/16 20:00 98.3 72 20 135/59 97 Room Air 10/17/16 16:00 97.2 101 20 115/70 93 Room Air 10/17/16 12:00 96.6 108 20 117/73 100 Room Air 10/17/16 09:06 121/73 Intake and Output 10/17/16 10/18/16 19:00 07:00 Intake Total 350 ml 440 ml Balance 350 ml 440 ml Intake Oral 350 ml 440 ml # Voids 2 2 # Bowel Movements 2 Laboratory Tests 10/18/16 03:40: White Blood Count 8.6, Red Blood Count 2.59L, Hemoglobin 8.3L, Hematocrit 28.4L , Mean Corpuscular Volume 110H, Mean Corpuscular Hemoglobin 31.9H, Mean Corpuscular Hemoglobin Concent 29.1L, Red Cell Distribution Width 23.7H, Platelet Count 359, Mean Platelet Volume 5.8L, Neutrophils (%) (Auto) 76.2H, Lymphocytes (%) (Auto) 8.5L, Monocytes (%) (Auto) 11.3H, Eosinophils (%) (Auto) 1.5, Basophils (%) (Auto) 2.6H, Prothrombin Time 13.3H, Prothromb Time International Ratio 1.3H, Activated Partial Thromboplast Time 31, Sodium Level 130L, Potassium Level 4.3, Chloride Level 88L, Carbon Dioxide Level 22, Anion Gap 20H, Blood Urea Nitrogen 28H, Creatinine 5.3H, Estimat Glomerular Filtration Rate 13.5, Glucose Level 96, Uric Acid 6.0, Calcium Level 9.3, Phosphorus Level 4.3, Magnesium Level 1.7, Total Bilirubin 2.4H, Direct Bilirubin 1.1H, Aspartate Amino Transf (AST/SGOT) 16, Alanine Aminotransferase ( ALT/SGPT) 7, Alkaline Phosphatase 131H, C-Reactive Protein, Quantitative 4.1H, Pro-B-Type Natriuretic Peptide 11182J, Total Protein 6.5L, Albumin 3.3L, Globulin 3.2, Albumin/Globulin Ratio 1.0 Height (Feet): 5 Height (Inches): 2.00 Weight (Pounds): 162 Objective PHYSICAL EXAMINATION: GENERAL: Alert, awake, and oriented. HEENT: PERRLA. NECK: Range of motion is full in all directions. No tenderness to paracervical muscles. No adenopathy. LUNGS: Decreased breath sounds bilaterally. HEART: S1 and S2, regular. ABDOMEN: Obese. BACK: Range of motion is decreased in flexion and extension with tenderness to paraspinous and trapezius muscles. EXTREMITIES: No cyanosis, no clubbing, edema noted on RUE. NEURO: No changes. Procedure: MRI T Spine no Contrast Impression: Positive for acute or subacute T7 vertebral body compression fracture. T10 vertebral body 14 mm abnormal high T2 signal focus. While possibly an atypical hemangioma, the possibility of neoplasm such as metastatic disease should also be considered. ARRON EDWARD Oct 18, 2016 08:33
[2016-10-18] MEDS: Nephrovite tab ORAL SCH (08:54)
[2016-10-18] MEDS: Lisinopril 2.5mg tab ORAL SCH ×2 (08:56→20:25)
[2016-10-18] MEDS: traMADol 50mg tab ORAL PRN (08:57)
[2016-10-18] MEDS: Analgesic Balm 15gm TOPIC SCH ×4 (08:58→20:27)
--- NOTE | 2016-10-18 10:09 | General Progress Note ---
Assessment/Plan Status: stable Assessment/Plan Status: (1) ESRD (end stage renal disease) on dialysis (2) Chest pain (3) Cocaine abuse (4) Anemia in chronic kidney disease (5) ? DVT right UE (6) Cardiomyopathy: Global left ventricular hypokinesis. Worse septal apper akinetic s. Left ventricular ejection fraction estimated to be 30-35 %. MR: Positive for acute or subacute T7 vertebral body compression fracture. Plan: had dialysis access placed 10/12 HD 10/16 next 10/19 Due Kyphoplasty On marcie inhibitors- per consultants ? DC planning after Kyphoplasty? Subjective ROS Limited/Unobtainable: No Allergies: Coded Allergies: No Known Allergies (Unverified , 09/28/16) Objective Last 24 Hour Vital Signs Date Time Temp Pulse Resp B/P Pulse Ox O2 Delivery O2 Flow Rate FiO2 10/18/16 08:56 120/71 10/18/16 08:20 80 18 Room Air 21 10/18/16 08:00 97.0 101 20 120/ 98 Room Air 10/18/16 04:00 97.6 102 19 126/74 95 Room Air 10/18/16 00:00 97.7 105 20 128/80 95 Room Air 10/17/16 21:21 135/59 10/17/16 20:13 98 18 Room Air 21 10/17/16 20:00 98.3 72 20 135/59 97 Room Air 10/17/16 16:00 97.2 101 20 115/70 93 Room Air 10/17/16 12:00 96.6 108 20 117/73 100 Room Air Intake and Output 10/17/16 10/18/16 19:00 07:00 Intake Total 350 ml 440 ml Balance 350 ml 440 ml Intake Oral 350 ml 440 ml # Voids 2 2 # Bowel Movements 2 Laboratory Tests 10/18/16 03:40: White Blood Count 8.6, Red Blood Count 2.59L, Hemoglobin 8.3L, Hematocrit 28.4L , Mean Corpuscular Volume 110H, Mean Corpuscular Hemoglobin 31.9H, Mean Corpuscular Hemoglobin Concent 29.1L, Red Cell Distribution Width 23.7H, Platelet Count 359, Mean Platelet Volume 5.8L, Neutrophils (%) (Auto) 76.2H, Lymphocytes (%) (Auto) 8.5L, Monocytes (%) (Auto) 11.3H, Eosinophils (%) (Auto) 1.5, Basophils (%) (Auto) 2.6H, Prothrombin Time 13.3H, Prothromb Time International Ratio 1.3H, Activated Partial Thromboplast Time 31, Sodium Level 130L, Potassium Level 4.3, Chloride Level 88L, Carbon Dioxide Level 22, Anion Gap 20H, Blood Urea Nitrogen 28H, Creatinine 5.3H, Estimat Glomerular Filtration Rate 13.5, Glucose Level 96, Uric Acid 6.0, Calcium Level 9.3, Phosphorus Level 4.3, Magnesium Level 1.7, Total Bilirubin 2.4H, Direct Bilirubin 1.1H, Aspartate Amino Transf (AST/SGOT) 16, Alanine Aminotransferase ( ALT/SGPT) 7, Alkaline Phosphatase 131H, C-Reactive Protein, Quantitative 4.1H, Pro-B-Type Natriuretic Peptide 67719H, Total Protein 6.5L, Albumin 3.3L, Globulin 3.2, Albumin/Globulin Ratio 1.0 Height (Feet): 5 Height (Inches): 2.00 Weight (Pounds): 162 General Appearance: no apparent distress Objective no change in PE KALEY RIOS Oct 18, 2016 10:09
--- NOTE | 2016-10-18 11:10 | GI Progress Note ---
Assessment/Plan Problems: (1) GIB (gastrointestinal bleeding) ICD Codes: K92.2 - Gastrointestinal hemorrhage, unspecified SNOMED: 60220383 (2) Cocaine abuse ICD Codes: F14.10 - Cocaine abuse, uncomplicated SNOMED: 83001078, 123250847 (3) Anemia in chronic kidney disease ICD Codes: N18.9 - Chronic kidney disease, unspecified; D63.1 - Anemia in chronic kidney disease SNOMED: 177480001, 235922311 (4) Chest pain ICD Codes: R07.9 - Chest pain, unspecified SNOMED: 92102135, [id number] Qualifiers: Qualified Codes: R07.9 - Chest pain, unspecified Status: unchanged Status Narrative Discussed with Dr. Bal. Assessment/Plan SUMMARY OF FINDINGS: 1. Significant diverticulosis. 2. Two polyps removed, see above for details. 3. Internal hemorrhoids. RECOMMENDATIONS: ok for DC per GI standpoint cardiac diet monitor H&H, transfuse prn PPI fu biopsy for HP repeat colon x 3 years fu labs fu with PCP Subjective Subjective denies any GI symptoms. back pain Objective Last 24 Hour Vital Signs Date Time Temp Pulse Resp B/P Pulse Ox O2 Delivery O2 Flow Rate FiO2 10/18/16 08:56 120/71 10/18/16 08:20 80 18 Room Air 21 10/18/16 08:00 97.0 101 20 120/ 98 Room Air 10/18/16 04:00 97.6 102 19 126/74 95 Room Air 10/18/16 00:00 97.7 105 20 128/80 95 Room Air 10/17/16 21:21 135/59 10/17/16 20:13 98 18 Room Air 21 10/17/16 20:00 98.3 72 20 135/59 97 Room Air 10/17/16 16:00 97.2 101 20 115/70 93 Room Air 10/17/16 12:00 96.6 108 20 117/73 100 Room Air Intake and Output 10/17/16 10/18/16 19:00 07:00 Intake Total 350 ml 440 ml Balance 350 ml 440 ml Intake Oral 350 ml 440 ml # Voids 2 2 # Bowel Movements 2 Laboratory Tests Test 10/18/16 03:40 White Blood Count 8.6 K/UL (4.8-10.8) Red Blood Count 2.59 M/UL (4.70-6.10) L Hemoglobin 8.3 G/DL (14.2-18.0) L Hematocrit 28.4 % (42.0-52.0) L Mean Corpuscular Volume 110 FL (80-99) H Mean Corpuscular Hemoglobin 31.9 PG (27.0-31.0) H Mean Corpuscular Hemoglobin Concent 29.1 G/DL (32.0-36.0) L Red Cell Distribution Width 23.7 % (11.6-14.8) H Platelet Count 359 K/UL (150-450) Mean Platelet Volume 5.8 FL (6.5-10.1) L Neutrophils (%) (Auto) 76.2 % (45.0-75.0) H Lymphocytes (%) (Auto) 8.5 % (20.0-45.0) L Monocytes (%) (Auto) 11.3 % (1.0-10.0) H Eosinophils (%) (Auto) 1.5 % (0.0-3.0) Basophils (%) (Auto) 2.6 % (0.0-2.0) H Prothrombin Time 13.3 SEC (9.30-11.50) H Prothromb Time International Ratio 1.3 (0.9-1.1) H Activated Partial Thromboplast Time 31 SEC (23-33) Sodium Level 130 mEQ/L (135-145) L Potassium Level 4.3 mEQ/L (3.4-4.9) Chloride Level 88 mEQ/L (98-107) L Carbon Dioxide Level 22 mEQ/L (20-30) Anion Gap 20 (5-15) H Blood Urea Nitrogen 28 mg/dL (7-23) H Creatinine 5.3 mg/dL (0.7-1.2) H Estimat Glomerular Filtration Rate 13.5 mL/min (>60) Glucose Level 96 mg/dL (74-106) Uric Acid 6.0 mg/dL (3.0-7.5) Calcium Level 9.3 mg/dL (8.6-10.2) Phosphorus Level 4.3 mg/dL (2.5-4.8) Magnesium Level 1.7 mg/dL (1.7-2.5) Total Bilirubin 2.4 mg/dL (0.0-1.2) H Direct Bilirubin 1.1 mg/dL (0.1-0.3) H Aspartate Amino Transf (AST/SGOT) 16 U/L (5-40) Alanine Aminotransferase (ALT/SGPT) 7 U/L (3-41) Alkaline Phosphatase 131 U/L (40-129) H C-Reactive Protein, Quantitative 4.1 mg/dL (< 0.5) H Pro-B-Type Natriuretic Peptide 08668 pg/mL (0-125) H Total Protein 6.5 g/dL (6.6-8.7) L Albumin 3.3 g/dL (3.5-5.2) L Globulin 3.2 g/dL Albumin/Globulin Ratio 1.0 (1.0-2.7) Height (Feet): 5 Height (Inches): 2.00 Weight (Pounds): 162 General Appearance: alert Cardiovascular: normal rate Respiratory/Chest: normal breath sounds, no respiratory distress Abdominal Exam: normal bowel sounds, non tender, soft Sole Lucio N.PTanvir Oct 18, 2016 11:10
--- NOTE | 2016-10-18 12:39 | General Progress Note ---
Assessment/Plan Assessment/Plan ASSESSMENT: 1. Anemia secondary to end-stage renal disease. Ferritin is 711. Is on epogen and HD prn basis 2. Acute drop in hgb, consider GI bleed, has been cleared by cards, pending colo 3. Thrombocytopenia potentially secondary to underlying infection. hep and hiv - , now has improved 4. Coagulopathy INR is 1.2, improved 5. Diabetes mellitus. 6. End-stage renal disease on hemodialysis. 7. Cocaine use history. RECOMMENDATIONS: 1. Monitor counts. 2. Transfuse if hemoglobin < 7.0 3. Continue epogen 4. Followup GI recs - is now s/p colo 5. Ultrasound of the abdomen has been reviewed 6. Anemia workup has reviewed 7. Followup on Nephrology, Pulmonary, GI, Cards recs 8. Transfuse if plts <20k 9. DVT prophylaxis with scds 10. GI prophylaxis ppi 11. Pain control. 12. staff. Thank you, Hugh Lopez MD Subjective Constitutional: Reports: no symptoms HEENT: Reports: no symptoms Cardiovascular: Reports: no symptoms Respiratory: Reports: no symptoms Gastrointestinal/Abdominal: Reports: no symptoms Genitourinary: Reports: no symptoms 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: Reports: no symptoms Endocrine: Reports: no symptoms Hematologic/Lymphatic: Reports: anemia Allergies: Coded Allergies: No Known Allergies (Unverified , 09/28/16) Subjective awake, not bleeding Objective Last 24 Hour Vital Signs Date Time Temp Pulse Resp B/P Pulse Ox O2 Delivery O2 Flow Rate FiO2 10/18/16 12:10 97.0 100 19 122/64 98 Room Air 10/18/16 08:56 120/71 10/18/16 08:20 80 18 Room Air 21 10/18/16 08:05 97.0 101 20 120/71 98 Room Air 10/18/16 04:00 97.6 102 19 126/74 95 Room Air 10/18/16 00:00 97.7 105 20 128/80 95 Room Air 10/17/16 21:21 135/59 10/17/16 20:13 98 18 Room Air 21 10/17/16 20:00 98.3 72 20 135/59 97 Room Air 10/17/16 16:00 97.2 101 20 115/70 93 Room Air Intake and Output 10/17/16 10/18/16 19:00 07:00 Intake Total 350 ml 440 ml Balance 350 ml 440 ml Intake Oral 350 ml 440 ml # Voids 2 2 # Bowel Movements 2 Laboratory Tests 10/18/16 03:40: White Blood Count 8.6, Red Blood Count 2.59L, Hemoglobin 8.3L, Hematocrit 28.4L , Mean Corpuscular Volume 110H, Mean Corpuscular Hemoglobin 31.9H, Mean Corpuscular Hemoglobin Concent 29.1L, Red Cell Distribution Width 23.7H, Platelet Count 359, Mean Platelet Volume 5.8L, Neutrophils (%) (Auto) 76.2H, Lymphocytes (%) (Auto) 8.5L, Monocytes (%) (Auto) 11.3H, Eosinophils (%) (Auto) 1.5, Basophils (%) (Auto) 2.6H, Prothrombin Time 13.3H, Prothromb Time International Ratio 1.3H, Activated Partial Thromboplast Time 31, Sodium Level 130L, Potassium Level 4.3, Chloride Level 88L, Carbon Dioxide Level 22, Anion Gap 20H, Blood Urea Nitrogen 28H, Creatinine 5.3H, Estimat Glomerular Filtration Rate 13.5, Glucose Level 96, Uric Acid 6.0, Calcium Level 9.3, Phosphorus Level 4.3, Magnesium Level 1.7, Total Bilirubin 2.4H, Direct Bilirubin 1.1H, Aspartate Amino Transf (AST/SGOT) 16, Alanine Aminotransferase ( ALT/SGPT) 7, Alkaline Phosphatase 131H, C-Reactive Protein, Quantitative 4.1H, Pro-B-Type Natriuretic Peptide 17652A, Total Protein 6.5L, Albumin 3.3L, Globulin 3.2, Albumin/Globulin Ratio 1.0 Height (Feet): 5 Height (Inches): 2.00 Weight (Pounds): 162 General Appearance: no apparent distress EENT: normal ENT inspection Neck: normal alignment Cardiovascular: regular rhythm Respiratory/Chest: normal breath sounds Abdomen: soft Extremities: non-tender Edema: 1+ Leg (L), 1+ Leg (R) Edema: mild edema Neurologic: alert Skin: warm/dry Hugh Lopez Oct 18, 2016 12:39
--- NOTE | 2016-10-18 12:46 | Neurology Progress Note ---
Interim History Interim History Interim History Mr. Hines feels a little better. He was sitting at the edge of his bed eating his lunch. The back pain is better - but still bothersome. The legs are strong. He denies any new neurologic symptoms. He specifically denies any new weakness, numbness, speech or language problems. Review of Systems Neuro Review of Systems Benign. Objective Physical Exam Last Vital Signs Date Time Temp Pulse Resp B/P Pulse Ox O2 Delivery O2 Flow Rate FiO2 10/18/16 12:10 97.0 100 19 122/64 98 Room Air 10/18/16 08:20 21 10/13/16 10:15 5.0 Laboratory Tests Test 10/18/16 03:40 White Blood Count 8.6 K/UL (4.8-10.8) Red Blood Count 2.59 M/UL (4.70-6.10) L Hemoglobin 8.3 G/DL (14.2-18.0) L Hematocrit 28.4 % (42.0-52.0) L Mean Corpuscular Volume 110 FL (80-99) H Mean Corpuscular Hemoglobin 31.9 PG (27.0-31.0) H Mean Corpuscular Hemoglobin Concent 29.1 G/DL (32.0-36.0) L Red Cell Distribution Width 23.7 % (11.6-14.8) H Platelet Count 359 K/UL (150-450) Mean Platelet Volume 5.8 FL (6.5-10.1) L Neutrophils (%) (Auto) 76.2 % (45.0-75.0) H Lymphocytes (%) (Auto) 8.5 % (20.0-45.0) L Monocytes (%) (Auto) 11.3 % (1.0-10.0) H Eosinophils (%) (Auto) 1.5 % (0.0-3.0) Basophils (%) (Auto) 2.6 % (0.0-2.0) H Prothrombin Time 13.3 SEC (9.30-11.50) H Prothromb Time International Ratio 1.3 (0.9-1.1) H Activated Partial Thromboplast Time 31 SEC (23-33) Sodium Level 130 mEQ/L (135-145) L Potassium Level 4.3 mEQ/L (3.4-4.9) Chloride Level 88 mEQ/L (98-107) L Carbon Dioxide Level 22 mEQ/L (20-30) Anion Gap 20 (5-15) H Blood Urea Nitrogen 28 mg/dL (7-23) H Creatinine 5.3 mg/dL (0.7-1.2) H Estimat Glomerular Filtration Rate 13.5 mL/min (>60) Glucose Level 96 mg/dL (74-106) Uric Acid 6.0 mg/dL (3.0-7.5) Calcium Level 9.3 mg/dL (8.6-10.2) Phosphorus Level 4.3 mg/dL (2.5-4.8) Magnesium Level 1.7 mg/dL (1.7-2.5) Total Bilirubin 2.4 mg/dL (0.0-1.2) H Direct Bilirubin 1.1 mg/dL (0.1-0.3) H Aspartate Amino Transf (AST/SGOT) 16 U/L (5-40) Alanine Aminotransferase (ALT/SGPT) 7 U/L (3-41) Alkaline Phosphatase 131 U/L (40-129) H C-Reactive Protein, Quantitative 4.1 mg/dL (< 0.5) H Pro-B-Type Natriuretic Peptide 99978 pg/mL (0-125) H Total Protein 6.5 g/dL (6.6-8.7) L Albumin 3.3 g/dL (3.5-5.2) L Globulin 3.2 g/dL Albumin/Globulin Ratio 1.0 (1.0-2.7) Neurologic Exam Objective PHYSICAL EXAMINATION: GENERAL: He is a well-developed, well-nourished, pleasant black gentleman, sitting at the edge of his bed, in no acute distress. HEAD: Normocephalic and atraumatic. EENT: Examination benign NECK: No neck rigidity was observed. NEUROLOGICAL EXAMINATION: MENTAL STATUS EXAMINATION: He was alert and awake. He was oriented to self, hospital, and October 18, 2016. He did not know the name of the hospital. He was able to recall 3/3 words immediately, but could only remember 2/3 words in 1 minute and 3 minutes. He knew that Obama was President, but could not remember presidents prior to that. His mathematical skills were impaired. His visuospatial function was also impaired. SPEECH: He had no dysarthria. LANGUAGE: He had anomia for low frequency words. CRANIAL NERVE EXAMINATION: II: The visual glaser were intact in the right eye. In the left eye vision was poor . III, IV & : External ocular movements are full in the right eye and restricted in the left eye. V: He had normal facial sensations and the temporales, masseters, and pterygoids function normally. VII: He had normal facial expressions and no facial asymmetry. VIII: He was able to hear well bilaterally and had no nystagmus. IX: The palate moved symmetrically on phonation. X: He had no hoarseness of voice. XI: The sternocleidomastoids and trapezii functioned normally. XII: The tongue was in the midline without any fasciculations or atrophy. MOTOR SYSTEM: The tone was normal in all four extremities. Examination of muscle mass revealed no definite focal wasting however it should be noticed that his right upper extremity was significantly swollen. Examination of power revealed grade 5/5 power in all muscle groups tested. SENSORY EXAMINATION: He had intact sensations to pinprick, light touch, and graphesthesia. COORDINATION: He performed well on [id number] and [id number] testing. REFLEXES: 0 at the biceps, triceps, brachioradialis, knees, and ankles. The plantar responses were flexor bilaterally. STANCE: He stood up with contact guard. GAIT: He walked well with contact guard. Impression/Recommendations Diagnostic Impression 1. Mr. Demetrius Hines is a 60-year-old, right-handed, black gentleman, with past history of hypertension, diabetes mellitus, end-stage renal disease, and polysubstance abuse with tetrahydrocannabinol and cocaine who was hospitalized at another hospital prior to his hospitalization at [facility] on 09/29/2016. When he came in he did have some mid back pain which was quite severe for the first few days, but has been much better in the last few days. He was evaluated for this pain and was found to have a T7 compression fracture. 2. He feels a little better with regards to the back pain and has not developed any new neurologic symptoms. 3. On neurological examination, at this time, he does have problems with recent and remote memory, higher cognitive function, and language. He also has point tenderness over his mid thoracic spine predominantly in the T6 and T7 region. In addition, the deep tendon reflexes are globally absent. 4. An MRI scan of thoracic spine revealed an acute versus subacute T7 vertebral body compression fracture with reduction of the vertebral height by approximately 40%, a T10 vertebral body abnormal high T2 signal area is also seen which most probably represents either a hemangioma or a neoplasm. 5. The patient's history and neurological examination are most compatible with a T7 compression fracture which is most probably traumatic in nature. He does not demonstrate any signs of spinal cord dysfunction at this point in time. Recommendations 1. Continue present management. 2. Kyphoplasty by radiologist as patient is still in significant pain and desires getting it. Patricia Barron M.D., M.S.P.H. PATRICIA BARRON Oct 18, 2016 12:46
--- NOTE | 2016-10-18 13:03 | General Progress Note ---
Assessment/Plan Problem List: (1) Cocaine abuse ICD Codes: F14.10 - Cocaine abuse, uncomplicated SNOMED: 27448942, 131960426 (2) Chest pain ICD Codes: R07.9 - Chest pain, unspecified SNOMED: 92722925, [id number] Qualifiers: Qualified Codes: R07.9 - Chest pain, unspecified Assessment/Plan vitals stable acute compression fracture t7 kyphoplasty by radiologist Subjective Constitutional: Reports: no symptoms Allergies: Coded Allergies: No Known Allergies (Unverified , 09/28/16) Objective Last 24 Hour Vital Signs Date Time Temp Pulse Resp B/P Pulse Ox O2 Delivery O2 Flow Rate FiO2 10/18/16 12:10 97.0 100 19 122/64 98 Room Air 10/18/16 08:56 120/71 10/18/16 08:20 80 18 Room Air 21 10/18/16 08:05 97.0 101 20 120/71 98 Room Air 10/18/16 04:00 97.6 102 19 126/74 95 Room Air 10/18/16 00:00 97.7 105 20 128/80 95 Room Air 10/17/16 21:21 135/59 10/17/16 20:13 98 18 Room Air 21 10/17/16 20:00 98.3 72 20 135/59 97 Room Air 10/17/16 16:00 97.2 101 20 115/70 93 Room Air Intake and Output 10/17/16 10/18/16 19:00 07:00 Intake Total 350 ml 440 ml Balance 350 ml 440 ml Intake Oral 350 ml 440 ml # Voids 2 2 # Bowel Movements 2 Laboratory Tests 10/18/16 03:40: White Blood Count 8.6, Red Blood Count 2.59L, Hemoglobin 8.3L, Hematocrit 28.4L , Mean Corpuscular Volume 110H, Mean Corpuscular Hemoglobin 31.9H, Mean Corpuscular Hemoglobin Concent 29.1L, Red Cell Distribution Width 23.7H, Platelet Count 359, Mean Platelet Volume 5.8L, Neutrophils (%) (Auto) 76.2H, Lymphocytes (%) (Auto) 8.5L, Monocytes (%) (Auto) 11.3H, Eosinophils (%) (Auto) 1.5, Basophils (%) (Auto) 2.6H, Prothrombin Time 13.3H, Prothromb Time International Ratio 1.3H, Activated Partial Thromboplast Time 31, Sodium Level 130L, Potassium Level 4.3, Chloride Level 88L, Carbon Dioxide Level 22, Anion Gap 20H, Blood Urea Nitrogen 28H, Creatinine 5.3H, Estimat Glomerular Filtration Rate 13.5, Glucose Level 96, Uric Acid 6.0, Calcium Level 9.3, Phosphorus Level 4.3, Magnesium Level 1.7, Total Bilirubin 2.4H, Direct Bilirubin 1.1H, Aspartate Amino Transf (AST/SGOT) 16, Alanine Aminotransferase ( ALT/SGPT) 7, Alkaline Phosphatase 131H, C-Reactive Protein, Quantitative 4.1H, Pro-B-Type Natriuretic Peptide 79276I, Total Protein 6.5L, Albumin 3.3L, Globulin 3.2, Albumin/Globulin Ratio 1.0 Height (Feet): 5 Height (Inches): 2.00 Weight (Pounds): 162 Abdomen: soft Liu Elizondo MD Oct 18, 2016 13:03
--- NOTE | 2016-10-18 15:54 | Diagnostic Imaging Report ---
Indication: Pain Technique: 25 mCi of technetium 99 M-MDP was injected intravenously. A whole-body bone scan was then performed in anterior and posterior projections. Several spot images were also obtained. Comparison: MRI thoracic spine 10/14/16 Findings: . Focus of abnormal uptake demonstrated within the mid thoracic spine at T7 corresponding to the fracture demonstrated on recent MRI. Note was also made of abnormality at T10 which appears normal on this exam. Metastatic disease is not likely to be present at T10. Otherwise, there is normal uptake demonstrated throughout the axial skeleton. There are no focal lesions identified to indicate metastatic neoplasm. Impression: T7 uptake corresponding to relatively recent fracture. Negative exam otherwise. No evidence of metastatic neoplasm
--- NOTE | 2016-10-18 17:05 | Infectious Diseases Prog Note ---
Assessment/Plan Problems: (1) Colonization with VRE (vancomycin-resistant enterococcus) Assessment & Plan: keep in contact isolation (2) ESRD (end stage renal disease) on dialysis Assessment & Plan: continue HD as per renal. (3) Cocaine abuse Assessment & Plan: recommend counseling and rehab (4) Chest pain Assessment & Plan: had stress test , cardiology is following (5) Anemia in chronic kidney disease Assessment & Plan: stable, monitor H/H transfuse as needed (6) GIB (gastrointestinal bleeding) Assessment & Plan: due to diverticulosis and polyps, S/P EGD/colonoscopy , monitor H/H and transfuse blood as needed Subjective Constitutional: Reports: no symptoms HEENT: Reports: no symptoms Respiratory: Reports: no symptoms Breasts: Reports: no symptoms Cardiovascular: Reports: no symptoms Gastrointestinal/Abdominal: Reports: no symptoms Genitourinary: Reports: no symptoms Neurologic: Reports: no symptoms Psychiatric: Reports: no symptoms Skin: Reports: no symptoms Endocrine: Reports: no symptoms Hematologic: Reports: no symptoms Allergies: Coded Allergies: No Known Allergies (Unverified , 09/28/16) Subjective he was up in bed, doing well , denied any fever or chills, no diarrhea Objective Vital Signs Last 24 Hour Vital Signs Date Time Temp Pulse Resp B/P Pulse Ox O2 Delivery O2 Flow Rate FiO2 10/18/16 12:10 97.0 100 19 122/64 98 Room Air 10/18/16 08:56 120/71 10/18/16 08:20 80 18 Room Air 21 10/18/16 08:05 97.0 101 20 120/71 98 Room Air 10/18/16 04:00 97.6 102 19 126/74 95 Room Air 10/18/16 00:00 97.7 105 20 128/80 95 Room Air 10/17/16 21:21 135/59 10/17/16 20:13 98 18 Room Air 21 10/17/16 20:00 98.3 72 20 135/59 97 Room Air Height (Feet): 5 Height (Inches): 2.00 Weight (Pounds): 162 General Appearance: WD/WN, no acute distress HEENT: normocephalic, atraumatic, anicteric Respiratory/Chest: chest wall non-tender, lungs clear, normal breath sounds, no respiratory distress, no accessory muscle use Cardiovascular: normal peripheral pulses, normal rate, regular rhythm, no gallop/murmur Abdomen: normal bowel sounds, soft, non tender, no organomegaly, non distended , no mass Extremities: no cyanosis, no clubbing Skin: no rash, no lesions, no ulcers Laboratory Tests Test 10/18/16 03:40 White Blood Count 8.6 K/UL (4.8-10.8) Red Blood Count 2.59 M/UL (4.70-6.10) L Hemoglobin 8.3 G/DL (14.2-18.0) L Hematocrit 28.4 % (42.0-52.0) L Mean Corpuscular Volume 110 FL (80-99) H Mean Corpuscular Hemoglobin 31.9 PG (27.0-31.0) H Mean Corpuscular Hemoglobin Concent 29.1 G/DL (32.0-36.0) L Red Cell Distribution Width 23.7 % (11.6-14.8) H Platelet Count 359 K/UL (150-450) Mean Platelet Volume 5.8 FL (6.5-10.1) L Neutrophils (%) (Auto) 76.2 % (45.0-75.0) H Lymphocytes (%) (Auto) 8.5 % (20.0-45.0) L Monocytes (%) (Auto) 11.3 % (1.0-10.0) H Eosinophils (%) (Auto) 1.5 % (0.0-3.0) Basophils (%) (Auto) 2.6 % (0.0-2.0) H Prothrombin Time 13.3 SEC (9.30-11.50) H Prothromb Time International Ratio 1.3 (0.9-1.1) H Activated Partial Thromboplast Time 31 SEC (23-33) Sodium Level 130 mEQ/L (135-145) L Potassium Level 4.3 mEQ/L (3.4-4.9) Chloride Level 88 mEQ/L (98-107) L Carbon Dioxide Level 22 mEQ/L (20-30) Anion Gap 20 (5-15) H Blood Urea Nitrogen 28 mg/dL (7-23) H Creatinine 5.3 mg/dL (0.7-1.2) H Estimat Glomerular Filtration Rate 13.5 mL/min (>60) Glucose Level 96 mg/dL (74-106) Uric Acid 6.0 mg/dL (3.0-7.5) Calcium Level 9.3 mg/dL (8.6-10.2) Phosphorus Level 4.3 mg/dL (2.5-4.8) Magnesium Level 1.7 mg/dL (1.7-2.5) Total Bilirubin 2.4 mg/dL (0.0-1.2) H Direct Bilirubin 1.1 mg/dL (0.1-0.3) H Aspartate Amino Transf (AST/SGOT) 16 U/L (5-40) Alanine Aminotransferase (ALT/SGPT) 7 U/L (3-41) Alkaline Phosphatase 131 U/L (40-129) H C-Reactive Protein, Quantitative 4.1 mg/dL (< 0.5) H Pro-B-Type Natriuretic Peptide 19720 pg/mL (0-125) H Total Protein 6.5 g/dL (6.6-8.7) L Albumin 3.3 g/dL (3.5-5.2) L Globulin 3.2 g/dL Albumin/Globulin Ratio 1.0 (1.0-2.7) Current Medications Medications (Trade) Dose Ordered Sig/Lillian Route PRN Reason Start Time Stop Time Status Last Admin Dose Admin Acetaminophen (Tylenol) 650 mg Q4H PRN ORAL Fever 10/06/16 15:30 11/05/16 15:29 10/10/16 06:37 Albuterol/ Ipratropium (DuoNeb 0.5-3(2.5)mg/3ml) 3 ml Q4H PRN HHN Shortness of Breath 10/16/16 09:15 10/21/16 09:14 Dextrose (Dextrose 50%) STAT PRN IV Hypoglycemia 10/06/16 19:30 11/05/16 19:29 Epoetin Joseph (Procrit (for ESRD on dialysis)) 5,000 units MON-WED-TUE SUBQ 10/06/16 21:00 11/05/16 20:59 10/15/16 20:58 Insulin Aspart (NovoLOG) BEFORE MEALS AND HS SUBQ 10/06/16 16:30 11/05/16 16:29 Lidocaine (Lidoderm 5% PATCH) 1 patch DAILY TDERMAL 10/07/16 09:00 11/06/16 08:59 10/17/16 09:07 Lisinopril (Zestril) 2.5 mg Q12HR ORAL 10/06/16 21:00 11/05/16 20:59 10/18/16 08:56 Menthol/Methyl Salicylate (Bengay) 1 applic FOUR TIMES A DAY TOPIC 10/10/16 13:00 11/09/16 12:59 10/17/16 09:10 Ondansetron HCl (Zofran) 4 mg Q6H PRN IVP Nausea & Vomiting 10/06/16 13:30 11/05/16 13:29 Pantoprazole (Protonix) 40 mg ACBREAKFAST ORAL 10/09/16 06:30 11/06/16 08:59 10/18/16 05:58 Polyethylene Glycol (Miralax) 17 gm DAILYPRN PRN ORAL Constipation 10/06/16 19:30 11/05/16 19:29 10/12/16 21:13 Temazepam (Restoril) 15 mg HSPRN PRN ORAL Insomnia 10/14/16 08:15 10/21/16 08:14 10/17/16 02:33 Tramadol HCl (Ultram) 50 mg Q4H PRN ORAL moderate to severe pain 10/14/16 08:15 10/21/16 08:14 10/18/16 08:57 Vitamin B Complex/ Vit C/Folic Acid (Nephrovite) 1 tab DAILY ORAL 10/07/16 09:00 11/06/16 08:59 10/18/16 08:54 Ivania Bhardwaj M.D. Oct 18, 2016 17:05
--- NOTE | 2016-10-18 17:34 | Pulmonology Progress Note ---
Assessment/Plan Problems: (1) Chest pain Assessment & Plan: stress study was negative (2) Acute respiratory failure Assessment & Plan: improved (3) Anemia in chronic kidney disease (4) ESRD (end stage renal disease) on dialysis (5) Fluid overload (6) Cocaine abuse (7) Back pain Assessment/Plan Hd access fell off, Needs a new access cardiac evaluation appreciated HD as needed med/surg if ok with Cardio Subjective ROS Limited/Unobtainable: Yes Cardiovascular: Reports: chest pain, palpitations Musculoskeletal: Reports: pain, stiffness Allergies: Coded Allergies: No Known Allergies (Unverified , 09/28/16) Objective Last 24 Hour Vital Signs Date Time Temp Pulse Resp B/P Pulse Ox O2 Delivery O2 Flow Rate FiO2 10/18/16 12:10 97.0 100 19 122/64 98 Room Air 10/18/16 08:56 120/71 10/18/16 08:20 80 18 Room Air 21 10/18/16 08:05 97.0 101 20 120/71 98 Room Air 10/18/16 04:00 97.6 102 19 126/74 95 Room Air 10/18/16 00:00 97.7 105 20 128/80 95 Room Air 10/17/16 21:21 135/59 10/17/16 20:13 98 18 Room Air 21 10/17/16 20:00 98.3 72 20 135/59 97 Room Air Intake and Output 10/17/16 10/18/16 19:00 07:00 Intake Total 350 ml 440 ml Balance 350 ml 440 ml Intake Oral 350 ml 440 ml # Voids 2 2 # Bowel Movements 2 General Appearance: no acute distress HEENT: normocephalic, atraumatic, anicteric, PERRL Respiratory/Chest: chest wall non-tender, decreased breath sounds, accessory muscle use Cardiovascular: normal peripheral pulses, normal rate, regular rhythm, no JVD Abdomen: normal bowel sounds, soft, non tender, no organomegaly Genitourinary: normal external genitalia Extremities: no cyanosis Skin: no rash, no lesions 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: caddymaster II-XII grossly normal, no motor/sensory deficits Laboratory Tests 10/18/16 03:40: White Blood Count 8.6, Red Blood Count 2.59L, Hemoglobin 8.3L, Hematocrit 28.4L , Mean Corpuscular Volume 110H, Mean Corpuscular Hemoglobin 31.9H, Mean Corpuscular Hemoglobin Concent 29.1L, Red Cell Distribution Width 23.7H, Platelet Count 359, Mean Platelet Volume 5.8L, Neutrophils (%) (Auto) 76.2H, Lymphocytes (%) (Auto) 8.5L, Monocytes (%) (Auto) 11.3H, Eosinophils (%) (Auto) 1.5, Basophils (%) (Auto) 2.6H, Prothrombin Time 13.3H, Prothromb Time International Ratio 1.3H, Activated Partial Thromboplast Time 31, Sodium Level 130L, Potassium Level 4.3, Chloride Level 88L, Carbon Dioxide Level 22, Anion Gap 20H, Blood Urea Nitrogen 28H, Creatinine 5.3H, Estimat Glomerular Filtration Rate 13.5, Glucose Level 96, Uric Acid 6.0, Calcium Level 9.3, Phosphorus Level 4.3, Magnesium Level 1.7, Total Bilirubin 2.4H, Direct Bilirubin 1.1H, Aspartate Amino Transf (AST/SGOT) 16, Alanine Aminotransferase ( ALT/SGPT) 7, Alkaline Phosphatase 131H, C-Reactive Protein, Quantitative 4.1H, Pro-B-Type Natriuretic Peptide 27358N, Total Protein 6.5L, Albumin 3.3L, Globulin 3.2, Albumin/Globulin Ratio 1.0 Current Medications Medications (Trade) Dose Ordered Sig/Lillian Route PRN Reason Start Time Stop Time Status Last Admin Dose Admin Acetaminophen (Tylenol) 650 mg Q4H PRN ORAL Fever 10/06/16 15:30 11/05/16 15:29 10/10/16 06:37 Albuterol/ Ipratropium (DuoNeb 0.5-3(2.5)mg/3ml) 3 ml Q4H PRN HHN Shortness of Breath 10/16/16 09:15 10/21/16 09:14 Dextrose (Dextrose 50%) STAT PRN IV Hypoglycemia 10/06/16 19:30 11/05/16 19:29 Epoetin Joseph (Procrit (for ESRD on dialysis)) 5,000 units MON-WED-FRI SUBQ 10/06/16 21:00 11/05/16 20:59 10/15/16 20:58 Insulin Aspart (NovoLOG) BEFORE MEALS AND HS SUBQ 10/06/16 16:30 11/05/16 16:29 Lidocaine (Lidoderm 5% PATCH) 1 patch DAILY TDERMAL 10/07/16 09:00 11/06/16 08:59 10/17/16 09:07 Lisinopril (Zestril) 2.5 mg Q12HR ORAL 10/06/16 21:00 11/05/16 20:59 10/18/16 08:56 Menthol/Methyl Salicylate (Bengay) 1 applic FOUR TIMES A DAY TOPIC 10/10/16 13:00 11/09/16 12:59 10/17/16 09:10 Ondansetron HCl (Zofran) 4 mg Q6H PRN IVP Nausea & Vomiting 10/06/16 13:30 11/05/16 13:29 Pantoprazole (Protonix) 40 mg ACBREAKFAST ORAL 10/09/16 06:30 11/06/16 08:59 10/18/16 05:58 Polyethylene Glycol (Miralax) 17 gm DAILYPRN PRN ORAL Constipation 10/06/16 19:30 11/05/16 19:29 10/12/16 21:13 Temazepam (Restoril) 15 mg HSPRN PRN ORAL Insomnia 10/14/16 08:15 10/21/16 08:14 10/17/16 02:33 Tramadol HCl (Ultram) 50 mg Q4H PRN ORAL moderate to severe pain 10/14/16 08:15 10/21/16 08:14 10/18/16 08:57 Vitamin B Complex/ Vit C/Folic Acid (Nephrovite) 1 tab DAILY ORAL 10/07/16 09:00 11/06/16 08:59 10/18/16 08:54 CARLOS ALBERTO HERMAN Oct 18, 2016 17:33
[2016-10-18] MEDS: Epogen (for ESRD on dialysis) SUBQ SCH (22:02)
[2016-10-19] VITALS (8 sets, daily range): BP systolic 115–130; BP diastolic 66–76
[2016-10-19] MEDS: NovoLOG Insulin Flexpen SUBQ SCH ×4 (06:22→20:33)
[2016-10-19 07:42] LABS: BASOPHILS % (AUTO) 1.7 % (0.0-2.0); LYMPHOCYTES % (AUTO) 11.2 % (20.0-45.0); MEAN CORPUSCULAR HEMOGLOBIN 30.5 PG (27.0-31.0); MEAN CORPUSCULAR HGB CONC 28.1 G/DL (32.0-36.0); MEAN CORPUSCULAR VOLUME 109 FL (80-99); MONOCYTES % (AUTO) 12.7 % (1.0-10.0); NEUTROPHILS % (AUTO) 72.3 % (45.0-75.0); PLATELET COUNT 423 K/UL (150-450); RED BLOOD COUNT 2.77 M/UL (4.70-6.10); RED CELL DISTRIBUTION WIDTH 22.5 % (11.6-14.8); WHITE BLOOD COUNT 7.7 K/UL (4.8-10.8)
[2016-10-19 08:05] LABS: CALCIUM 9.4 mg/dL (8.6-10.2); CREATININE 6.3 mg/dL (0.7-1.2); POTASSIUM 4.5 mEQ/L (3.4-4.9)
[2016-10-19] MEDS: Analgesic Balm 15gm TOPIC SCH ×4 (08:23→20:30)
--- NOTE | 2016-10-19 08:24 | General Progress Note ---
Assessment/Plan Assessment/Plan (1) Cocaine abuse (2) Chest pain (3) CHF (4) ESRD on Hemodialysis (5) Lumbar sprain s/p fall (6) T spine compression fracture Kyphoplasty pending. Pt will be continued on Bengay cream, Lidoderm patch and tramadol. Pt was d/w Dr. Rodriguez and he concurred. Subjective Date patient seen: Oct 19, 2016 Time patient seen: 08:15 - am Allergies: Coded Allergies: No Known Allergies (Unverified , 09/28/16) Subjective REVIEW OF SYSTEMS: Denies rash, fever, chills, sweating, dizziness, drowsiness, blurred vision, sore throat, or change in weight. No nausea, vomiting, diarrhea, or blood urine. No bowel or bladder incontinence. No dysuria. c/o back pain SUBJECTIVE: His pain has been stable using the tramadol as needed. Having dialysis today. Objective Last 24 Hour Vital Signs Date Time Temp Pulse Resp B/P Pulse Ox O2 Delivery O2 Flow Rate FiO2 10/19/16 06:30 Room Air 10/19/16 06:20 97.0 98 20 130/66 93 Room Air 10/19/16 04:00 97.2 95 20 126/72 100 Room Air 10/19/16 00:00 96.1 102 22 122/66 90 Room Air 10/18/16 20:25 126/78 10/18/16 20:00 95 18 126/90 98 Room Air 10/18/16 19:30 90 20 Room Air 21 10/18/16 16:00 18 106/60 98 Room Air 10/18/16 12:10 97.0 100 19 122/64 98 Room Air 10/18/16 08:56 120/71 Intake and Output 10/18/16 10/19/16 19:00 07:00 Intake Total 400 ml 150 ml Output Total 50 ml Balance 400 ml 100 ml Intake Oral 400 ml 150 ml Output Urine Total 50 ml # Voids 1 2 # Bowel Movements 1 Laboratory Tests 10/19/16 06:35: White Blood Count 7.7, Red Blood Count 2.77L, Hemoglobin 8.5L, Hematocrit 30.1L , Mean Corpuscular Volume 109H, Mean Corpuscular Hemoglobin 30.5, Mean Corpuscular Hemoglobin Concent 28.1L, Red Cell Distribution Width 22.5H, Platelet Count 423, Mean Platelet Volume 6.0L, Neutrophils (%) (Auto) 72.3, Lymphocytes (%) (Auto) 11.2L, Monocytes (%) (Auto) 12.7H, Eosinophils (%) (Auto ) 2.0, Basophils (%) (Auto) 1.7, Sodium Level 132L, Potassium Level 4.5, Chloride Level 90L, Carbon Dioxide Level 22, Anion Gap 20H, Blood Urea Nitrogen 36H, Creatinine 6.3H, Estimat Glomerular Filtration Rate 11.0, Glucose Level 89 , Calcium Level 9.4 Height (Feet): 5 Height (Inches): 2.00 Weight (Pounds): 163 Objective PHYSICAL EXAMINATION: GENERAL: Alert, awake, and oriented. HEENT: PERRLA. NECK: Range of motion is full in all directions. No tenderness to paracervical muscles. No adenopathy. LUNGS: Decreased breath sounds bilaterally. HEART: S1 and S2, regular. ABDOMEN: Obese. BACK: Range of motion is decreased in flexion and extension with tenderness to paraspinous and trapezius muscles. EXTREMITIES: No cyanosis, no clubbing, edema noted on RUE. NEURO: No changes. Procedure: NM Bone Scan Whole body Impression: T7 uptake corresponding to relatively recent fracture. Negative exam otherwise. No evidence of metastatic neoplasm ARRON EDWARD Oct 19, 2016 08:24
[2016-10-19] MEDS: Lisinopril 2.5mg tab ORAL SCH ×2 (10:29→20:30)
[2016-10-19] MEDS: Nephrovite tab ORAL SCH (10:29)
--- NOTE | 2016-10-19 11:06 | General Progress Note ---
Assessment/Plan Status: stable Assessment/Plan Status: (1) ESRD (end stage renal disease) on dialysis (2) Chest pain (3) Cocaine abuse (4) Anemia in chronic kidney disease (5) ? DVT right UE (6) Cardiomyopathy: Global left ventricular hypokinesis. Worse septal apper akinetic s. Left ventricular ejection fraction estimated to be 30-35 %. MR: Positive for acute or subacute T7 vertebral body compression fracture. Plan: had dialysis access placed 10/12 HD 10/16 next 10/19- done- Due Kyphoplasty ?? On marcie inhibitors- per consultants ? DC planning after Kyphoplasty? Subjective ROS Limited/Unobtainable: No Allergies: Coded Allergies: No Known Allergies (Unverified , 09/28/16) Objective Last 24 Hour Vital Signs Date Time Temp Pulse Resp B/P Pulse Ox O2 Delivery O2 Flow Rate FiO2 10/19/16 10:29 127/66 10/19/16 09:39 Room Air 10/19/16 09:37 97.2 102 18 127/66 94 Room Air 10/19/16 08:00 96.3 98 18 123/68 95 Room Air 10/19/16 07:55 102 20 Room Air 21 10/19/16 06:30 Room Air 10/19/16 06:20 97.0 98 20 130/66 93 Room Air 10/19/16 04:00 97.2 95 20 126/72 100 Room Air 10/19/16 00:00 96.1 102 22 122/66 90 Room Air 10/18/16 20:25 126/78 10/18/16 20:00 95 18 126/90 98 Room Air 10/18/16 19:30 90 20 Room Air 21 10/18/16 16:00 18 106/60 98 Room Air 10/18/16 12:10 97.0 100 19 122/64 98 Room Air Intake and Output 10/18/16 10/19/16 18:59 06:59 Intake Total 400 ml 150 ml Output Total 50 ml Balance 400 ml 100 ml Intake Oral 400 ml 150 ml Output Urine Total 50 ml # Voids 1 2 # Bowel Movements 1 Laboratory Tests 10/19/16 06:35: White Blood Count 7.7, Red Blood Count 2.77L, Hemoglobin 8.5L, Hematocrit 30.1L , Mean Corpuscular Volume 109H, Mean Corpuscular Hemoglobin 30.5, Mean Corpuscular Hemoglobin Concent 28.1L, Red Cell Distribution Width 22.5H, Platelet Count 423, Mean Platelet Volume 6.0L, Neutrophils (%) (Auto) 72.3, Lymphocytes (%) (Auto) 11.2L, Monocytes (%) (Auto) 12.7H, Eosinophils (%) (Auto ) 2.0, Basophils (%) (Auto) 1.7, Sodium Level 132L, Potassium Level 4.5, Chloride Level 90L, Carbon Dioxide Level 22, Anion Gap 20H, Blood Urea Nitrogen 36H, Creatinine 6.3H, Estimat Glomerular Filtration Rate 11.0, Glucose Level 89 , Calcium Level 9.4 Height (Feet): 5 Height (Inches): 2.00 Weight (Pounds): 163 General Appearance: no apparent distress Respiratory/Chest: decreased breath sounds Objective no change in PE KALEY RIOS Oct 19, 2016 11:06
--- NOTE | 2016-10-19 11:31 | GI Progress Note ---
Assessment/Plan Problems: (1) GIB (gastrointestinal bleeding) ICD Codes: K92.2 - Gastrointestinal hemorrhage, unspecified SNOMED: 99821536 (2) Cocaine abuse ICD Codes: F14.10 - Cocaine abuse, uncomplicated SNOMED: 54562047, 553252867 (3) Anemia in chronic kidney disease ICD Codes: N18.9 - Chronic kidney disease, unspecified; D63.1 - Anemia in chronic kidney disease SNOMED: 668653483, 736798000 (4) Chest pain ICD Codes: R07.9 - Chest pain, unspecified SNOMED: 25119439, 405434357 Qualifiers: Qualified Codes: R07.9 - Chest pain, unspecified Status: unchanged Status Narrative Discussed with Dr. Bal. Assessment/Plan SUMMARY OF FINDINGS: 1. Significant diverticulosis. 2. Two polyps removed, see above for details. 3. Internal hemorrhoids. RECOMMENDATIONS: ok for DC per GI standpoint cardiac diet monitor H&H, transfuse prn PPI fu biopsy for HP >> negative repeat colon x 3 years fu labs fu with PCP Subjective Subjective denies any GI symptoms. back pain Objective Last 24 Hour Vital Signs Date Time Temp Pulse Resp B/P Pulse Ox O2 Delivery O2 Flow Rate FiO2 10/19/16 10:29 127/66 10/19/16 09:39 Room Air 10/19/16 09:37 97.2 102 18 127/66 94 Room Air 10/19/16 08:00 96.3 98 18 123/68 95 Room Air 10/19/16 07:55 102 20 Room Air 21 10/19/16 06:30 Room Air 10/19/16 06:20 97.0 98 20 130/66 93 Room Air 10/19/16 04:00 97.2 95 20 126/72 100 Room Air 10/19/16 00:00 96.1 102 22 122/66 90 Room Air 10/18/16 20:25 126/78 10/18/16 20:00 95 18 126/90 98 Room Air 10/18/16 19:30 90 20 Room Air 21 10/18/16 16:00 18 106/60 98 Room Air 10/18/16 12:10 97.0 100 19 122/64 98 Room Air Intake and Output 10/18/16 10/19/16 19:00 07:00 Intake Total 400 ml 150 ml Output Total 50 ml Balance 400 ml 100 ml Intake Oral 400 ml 150 ml Output Urine Total 50 ml # Voids 1 2 # Bowel Movements 1 Laboratory Tests Test 10/19/16 06:35 White Blood Count 7.7 K/UL (4.8-10.8) Red Blood Count 2.77 M/UL (4.70-6.10) L Hemoglobin 8.5 G/DL (14.2-18.0) L Hematocrit 30.1 % (42.0-52.0) L Mean Corpuscular Volume 109 FL (80-99) H Mean Corpuscular Hemoglobin 30.5 PG (27.0-31.0) Mean Corpuscular Hemoglobin Concent 28.1 G/DL (32.0-36.0) L Red Cell Distribution Width 22.5 % (11.6-14.8) H Platelet Count 423 K/UL (150-450) Mean Platelet Volume 6.0 FL (6.5-10.1) L Neutrophils (%) (Auto) 72.3 % (45.0-75.0) Lymphocytes (%) (Auto) 11.2 % (20.0-45.0) L Monocytes (%) (Auto) 12.7 % (1.0-10.0) H Eosinophils (%) (Auto) 2.0 % (0.0-3.0) Basophils (%) (Auto) 1.7 % (0.0-2.0) Sodium Level 132 mEQ/L (135-145) L Potassium Level 4.5 mEQ/L (3.4-4.9) Chloride Level 90 mEQ/L (98-107) L Carbon Dioxide Level 22 mEQ/L (20-30) Anion Gap 20 (5-15) H Blood Urea Nitrogen 36 mg/dL (7-23) H Creatinine 6.3 mg/dL (0.7-1.2) H Estimat Glomerular Filtration Rate 11.0 mL/min (>60) Glucose Level 89 mg/dL (74-106) Calcium Level 9.4 mg/dL (8.6-10.2) Height (Feet): 5 Height (Inches): 2.00 Weight (Pounds): 163 General Appearance: no apparent distress, alert Cardiovascular: normal rate Respiratory/Chest: normal breath sounds, no respiratory distress Abdominal Exam: normal bowel sounds, non tender Lucio,Sole Sebastian N.P. Oct 19, 2016 11:31
--- NOTE | 2016-10-19 11:34 | General Progress Note ---
Assessment/Plan Problem List: (1) Cocaine abuse ICD Codes: F14.10 - Cocaine abuse, uncomplicated SNOMED: 81515820, [id number] (2) Chest pain ICD Codes: R07.9 - Chest pain, unspecified SNOMED: 45386242, [id number] Qualifiers: Qualified Codes: R07.9 - Chest pain, unspecified Status: progressing Assessment/Plan acute compression fracture t7 kyphoplasty by radiologist insurance wants up to transfer the patient to contracted hospital so i gave order to transfer to contracted hospital if ok w dr stubbs Subjective Allergies: Coded Allergies: No Known Allergies (Unverified , 09/28/16) Subjective back pain Objective Last 24 Hour Vital Signs Date Time Temp Pulse Resp B/P Pulse Ox O2 Delivery O2 Flow Rate FiO2 10/19/16 10:29 127/66 10/19/16 09:39 Room Air 10/19/16 09:37 97.2 102 18 127/66 94 Room Air 10/19/16 08:00 96.3 98 18 123/68 95 Room Air 10/19/16 07:55 102 20 Room Air 21 10/19/16 06:30 Room Air 10/19/16 06:20 97.0 98 20 130/66 93 Room Air 10/19/16 04:00 97.2 95 20 126/72 100 Room Air 10/19/16 00:00 96.1 102 22 122/66 90 Room Air 10/18/16 20:25 126/78 10/18/16 20:00 95 18 126/90 98 Room Air 10/18/16 19:30 90 20 Room Air 21 10/18/16 16:00 18 106/60 98 Room Air 10/18/16 12:10 97.0 100 19 122/64 98 Room Air Intake and Output 10/18/16 10/19/16 19:00 07:00 Intake Total 400 ml 150 ml Output Total 50 ml Balance 400 ml 100 ml Intake Oral 400 ml 150 ml Output Urine Total 50 ml # Voids 1 2 # Bowel Movements 1 Laboratory Tests 10/19/16 06:35: White Blood Count 7.7, Red Blood Count 2.77L, Hemoglobin 8.5L, Hematocrit 30.1L , Mean Corpuscular Volume 109H, Mean Corpuscular Hemoglobin 30.5, Mean Corpuscular Hemoglobin Concent 28.1L, Red Cell Distribution Width 22.5H, Platelet Count 423, Mean Platelet Volume 6.0L, Neutrophils (%) (Auto) 72.3, Lymphocytes (%) (Auto) 11.2L, Monocytes (%) (Auto) 12.7H, Eosinophils (%) (Auto ) 2.0, Basophils (%) (Auto) 1.7, Sodium Level 132L, Potassium Level 4.5, Chloride Level 90L, Carbon Dioxide Level 22, Anion Gap 20H, Blood Urea Nitrogen 36H, Creatinine 6.3H, Estimat Glomerular Filtration Rate 11.0, Glucose Level 89 , Calcium Level 9.4 Height (Feet): 5 Height (Inches): 2.00 Weight (Pounds): 163 Cardiovascular: normal rate Respiratory/Chest: lungs clear Liu Elizondo MD Oct 19, 2016 11:34
--- NOTE | 2016-10-19 17:33 | General Progress Note ---
Assessment/Plan Assessment/Plan ASSESSMENT: 1. Anemia secondary to end-stage renal disease. Ferritin is 711. Is on epogen and HD prn basis 2. Acute drop in hgb, consider GI bleed, has been cleared by cards, pending colo 3. Thrombocytopenia potentially secondary to underlying infection. hep and hiv - , now has improved 4. Coagulopathy INR is 1.2, improved 5. Diabetes mellitus. 6. End-stage renal disease on hemodialysis. 7. Cocaine use history. RECOMMENDATIONS: 1. Monitor counts. 2. Transfuse if hemoglobin < 7.0 3. Continue epogen 4. Followup GI recs - is now s/p colo 5. Followup on Nephrology, Pulmonary, GI, Cards recs 6. Transfuse if plts <20k 7. DVT prophylaxis with scds 8. GI prophylaxis ppi 9. Pain control. 10. staff. Thank you, Hugh Lopez MD Subjective Constitutional: Reports: no symptoms HEENT: Reports: no symptoms Cardiovascular: Reports: no symptoms Respiratory: Reports: cough Gastrointestinal/Abdominal: Reports: no symptoms Genitourinary: Reports: no symptoms 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: Reports: no symptoms Endocrine: Reports: no symptoms Hematologic/Lymphatic: Reports: anemia Allergies: Coded Allergies: No Known Allergies (Unverified , 09/28/16) Subjective awake, is not bleeding Objective Last 24 Hour Vital Signs Date Time Temp Pulse Resp B/P Pulse Ox O2 Delivery O2 Flow Rate FiO2 10/19/16 16:00 97.3 100 20 118/75 100 Room Air 10/19/16 12:00 95.5 115 20 115/76 100 Room Air 10/19/16 10:29 127/66 10/19/16 09:39 Room Air 10/19/16 09:37 97.2 102 18 127/66 94 Room Air 10/19/16 08:00 96.3 98 18 123/68 95 Room Air 10/19/16 07:55 102 20 Room Air 21 10/19/16 06:30 Room Air 10/19/16 06:20 97.0 98 20 130/66 93 Room Air 10/19/16 04:00 97.2 95 20 126/72 100 Room Air 10/19/16 00:00 96.1 102 22 122/66 90 Room Air 10/18/16 20:25 126/78 10/18/16 20:00 95 18 126/90 98 Room Air 10/18/16 19:30 90 20 Room Air 21 Intake and Output 10/18/16 10/19/16 19:00 07:00 Intake Total 400 ml 150 ml Output Total 50 ml Balance 400 ml 100 ml Intake Oral 400 ml 150 ml Output Urine Total 50 ml # Voids 1 2 # Bowel Movements 1 Laboratory Tests 10/19/16 06:35: White Blood Count 7.7, Red Blood Count 2.77L, Hemoglobin 8.5L, Hematocrit 30.1L , Mean Corpuscular Volume 109H, Mean Corpuscular Hemoglobin 30.5, Mean Corpuscular Hemoglobin Concent 28.1L, Red Cell Distribution Width 22.5H, Platelet Count 423, Mean Platelet Volume 6.0L, Neutrophils (%) (Auto) 72.3, Lymphocytes (%) (Auto) 11.2L, Monocytes (%) (Auto) 12.7H, Eosinophils (%) (Auto ) 2.0, Basophils (%) (Auto) 1.7, Sodium Level 132L, Potassium Level 4.5, Chloride Level 90L, Carbon Dioxide Level 22, Anion Gap 20H, Blood Urea Nitrogen 36H, Creatinine 6.3H, Estimat Glomerular Filtration Rate 11.0, Glucose Level 89 , Calcium Level 9.4 Height (Feet): 5 Height (Inches): 2.00 Weight (Pounds): 163 General Appearance: alert EENT: TMs normal Neck: normal inspection Cardiovascular: regular rhythm Respiratory/Chest: normal breath sounds Abdomen: non tender Extremities: non-tender Edema: no edema noted Leg (L), no edema noted Leg (R) Edema: mild edema Neurologic: no motor/sensory deficits Skin: warm/dry Hugh Lopez Oct 19, 2016 17:33
--- NOTE | 2016-10-19 18:16 | Neurology Progress Note ---
Interim History Interim History Interim History Mr. Hines feels a little better. He was lying in bed. The back pain is better - but still bothersome. The legs are strong. He denies any new neurologic symptoms. He specifically denies any new weakness, numbness, speech or language problems. Review of Systems Neuro Review of Systems Benign. Objective Physical Exam Last Vital Signs Date Time Temp Pulse Resp B/P Pulse Ox O2 Delivery O2 Flow Rate FiO2 10/19/16 16:00 97.3 100 20 118/75 100 Room Air 10/19/16 07:55 21 10/13/16 10:15 5.0 Laboratory Tests Test 10/19/16 06:35 White Blood Count 7.7 K/UL (4.8-10.8) Red Blood Count 2.77 M/UL (4.70-6.10) L Hemoglobin 8.5 G/DL (14.2-18.0) L Hematocrit 30.1 % (42.0-52.0) L Mean Corpuscular Volume 109 FL (80-99) H Mean Corpuscular Hemoglobin 30.5 PG (27.0-31.0) Mean Corpuscular Hemoglobin Concent 28.1 G/DL (32.0-36.0) L Red Cell Distribution Width 22.5 % (11.6-14.8) H Platelet Count 423 K/UL (150-450) Mean Platelet Volume 6.0 FL (6.5-10.1) L Neutrophils (%) (Auto) 72.3 % (45.0-75.0) Lymphocytes (%) (Auto) 11.2 % (20.0-45.0) L Monocytes (%) (Auto) 12.7 % (1.0-10.0) H Eosinophils (%) (Auto) 2.0 % (0.0-3.0) Basophils (%) (Auto) 1.7 % (0.0-2.0) Sodium Level 132 mEQ/L (135-145) L Potassium Level 4.5 mEQ/L (3.4-4.9) Chloride Level 90 mEQ/L (98-107) L Carbon Dioxide Level 22 mEQ/L (20-30) Anion Gap 20 (5-15) H Blood Urea Nitrogen 36 mg/dL (7-23) H Creatinine 6.3 mg/dL (0.7-1.2) H Estimat Glomerular Filtration Rate 11.0 mL/min (>60) Glucose Level 89 mg/dL (74-106) Calcium Level 9.4 mg/dL (8.6-10.2) Neurologic Exam Objective PHYSICAL EXAMINATION: GENERAL: He is a well-developed, well-nourished, pleasant black gentleman, sitting at the edge of his bed, in no acute distress. HEAD: Normocephalic and atraumatic. EENT: Examination benign NECK: No neck rigidity was observed. NEUROLOGICAL EXAMINATION: MENTAL STATUS EXAMINATION: He was alert and awake. He was oriented to [facility], [facility], and October 19, 2016. He was able to recall 3/3 words immediately, but could only remember 2/3 words in 1 minute and 3 minutes. He knew that Obkulwinder was President, but could not remember presidents prior to that. His mathematical skills were impaired. His visuospatial function was also impaired. SPEECH: He had no dysarthria. LANGUAGE: He had anomia for low frequency words. CRANIAL NERVE EXAMINATION: II: The visual glaser were intact in the right eye. In the left eye vision was poor . III, IV & : External ocular movements are full in the right eye and restricted in the left eye. V: He had normal facial sensations and the temporales, masseters, and pterygoids function normally. VII: He had normal facial expressions and no facial asymmetry. VIII: He was able to hear well bilaterally and had no nystagmus. IX: The palate moved symmetrically on phonation. X: He had no hoarseness of voice. XI: The sternocleidomastoids and trapezii functioned normally. XII: The tongue was in the midline without any fasciculations or atrophy. MOTOR SYSTEM: The tone was normal in all four extremities. Examination of muscle mass revealed no definite focal wasting however it should be noticed that his right upper extremity was significantly swollen. Examination of power revealed grade 5/5 power in all muscle groups tested. SENSORY EXAMINATION: He had intact sensations to pinprick, light touch, and graphesthesia. COORDINATION: He performed well on [id number] and [id number] testing. REFLEXES: 0 at the biceps, triceps, brachioradialis, knees, and ankles. The plantar responses were flexor bilaterally. STANCE: He stood up with contact guard. GAIT: He walked well with contact guard. Impression/Recommendations Diagnostic Impression 1. Mr. Demetrius Hines is a 60-year-old, right-handed, black gentleman, with past history of hypertension, diabetes mellitus, end-stage renal disease, and polysubstance abuse with tetrahydrocannabinol and cocaine who was hospitalized at another hospital prior to his hospitalization at [facility] on 09/29/2016. When he came in he did have some mid back pain which was quite severe for the first few days, but has been much better in the last few days. He was evaluated for this pain and was found to have a T7 compression fracture. 2. He feels a little better with regards to the back pain and has not developed any new neurologic symptoms. 3. On neurological examination, at this time, he does have problems with recent and remote memory, higher cognitive function, and language. He also has point tenderness over his mid thoracic spine predominantly in the T6 and T7 region. In addition, the deep tendon reflexes are globally absent. 4. An MRI scan of thoracic spine revealed an acute versus subacute T7 vertebral body compression fracture with reduction of the vertebral height by approximately 40%, a T10 vertebral body abnormal high T2 signal area is also seen which most probably represents either a hemangioma or a neoplasm. 5. The patient's history and neurological examination are most compatible with a subacute T7 compression fracture which is most probably traumatic in nature. He does not demonstrate any signs of spinal cord dysfunction at this point in time. Recommendations 1. Continue present management. 2. Kyphoplasty by radiologist as patient is still in significant pain and desires getting it. Patricia Barron M.D., M.S.P.H. PATRICIA BARRON Oct 19, 2016 18:16
--- NOTE | 2016-10-19 18:22 | Pulmonology Progress Note ---
Assessment/Plan Problems: (1) Chest pain Assessment & Plan: stress study was negative (2) Acute respiratory failure Assessment & Plan: improved (3) Anemia in chronic kidney disease (4) ESRD (end stage renal disease) on dialysis (5) Fluid overload (6) Cocaine abuse (7) Back pain Assessment/Plan Hd access fell off, Needs a new access cardiac evaluation appreciated HD as needed med/surg if ok with Cardio Subjective ROS Limited/Unobtainable: No Respiratory: Reports: dry cough, shortness of breath, wheezing Musculoskeletal: Reports: pain, stiffness, swelling Allergies: Coded Allergies: No Known Allergies (Unverified , 09/28/16) Objective Last 24 Hour Vital Signs Date Time Temp Pulse Resp B/P Pulse Ox O2 Delivery O2 Flow Rate FiO2 10/19/16 16:00 97.3 100 20 118/75 100 Room Air 10/19/16 12:00 95.5 115 20 115/76 100 Room Air 10/19/16 10:29 127/66 10/19/16 09:39 Room Air 10/19/16 09:37 97.2 102 18 127/66 94 Room Air 10/19/16 08:00 96.3 98 18 123/68 95 Room Air 10/19/16 07:55 102 20 Room Air 21 10/19/16 06:30 Room Air 10/19/16 06:20 97.0 98 20 130/66 93 Room Air 10/19/16 04:00 97.2 95 20 126/72 100 Room Air 10/19/16 00:00 96.1 102 22 122/66 90 Room Air 10/18/16 20:25 126/78 10/18/16 20:00 95 18 126/90 98 Room Air 10/18/16 19:30 90 20 Room Air 21 Intake and Output 10/18/16 10/19/16 19:00 07:00 Intake Total 400 ml 150 ml Output Total 50 ml Balance 400 ml 100 ml Intake Oral 400 ml 150 ml Output Urine Total 50 ml # Voids 1 2 # Bowel Movements 1 General Appearance: no acute distress HEENT: normocephalic, atraumatic, mucous membranes moist Respiratory/Chest: chest wall non-tender, decreased breath sounds, accessory muscle use Cardiovascular: normal peripheral pulses, normal rate, regular rhythm Abdomen: normal bowel sounds, soft, non tender, no organomegaly Genitourinary: normal external genitalia Extremities: no cyanosis, no clubbing Skin: no rash, lesions 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, no motor/sensory deficits Laboratory Tests 10/19/16 06:35: White Blood Count 7.7, Red Blood Count 2.77L, Hemoglobin 8.5L, Hematocrit 30.1L , Mean Corpuscular Volume 109H, Mean Corpuscular Hemoglobin 30.5, Mean Corpuscular Hemoglobin Concent 28.1L, Red Cell Distribution Width 22.5H, Platelet Count 423, Mean Platelet Volume 6.0L, Neutrophils (%) (Auto) 72.3, Lymphocytes (%) (Auto) 11.2L, Monocytes (%) (Auto) 12.7H, Eosinophils (%) (Auto ) 2.0, Basophils (%) (Auto) 1.7, Sodium Level 132L, Potassium Level 4.5, Chloride Level 90L, Carbon Dioxide Level 22, Anion Gap 20H, Blood Urea Nitrogen 36H, Creatinine 6.3H, Estimat Glomerular Filtration Rate 11.0, Glucose Level 89 , Calcium Level 9.4 Current Medications Medications (Trade) Dose Ordered Sig/Lillian Route PRN Reason Start Time Stop Time Status Last Admin Dose Admin Acetaminophen (Tylenol) 650 mg Q4H PRN ORAL Fever 10/06/16 15:30 11/05/16 15:29 10/10/16 06:37 Albuterol/ Ipratropium (DuoNeb 0.5-3(2.5)mg/3ml) 3 ml Q4H PRN HHN Shortness of Breath 10/16/16 09:15 10/21/16 09:14 Dextrose (Dextrose 50%) STAT PRN IV Hypoglycemia 10/06/16 19:30 11/05/16 19:29 Epoetin Joseph (Procrit (for ESRD on dialysis)) 5,000 units MON-WED-FRI SUBQ 10/06/16 21:00 11/05/16 20:59 10/18/16 22:02 Insulin Aspart (NovoLOG) BEFORE MEALS AND HS SUBQ 10/06/16 16:30 11/05/16 16:29 Lidocaine (Lidoderm 5% PATCH) 1 patch DAILY TDERMAL 10/07/16 09:00 11/06/16 08:59 10/17/16 09:07 Lisinopril (Zestril) 2.5 mg Q12HR ORAL 10/06/16 21:00 11/05/16 20:59 10/19/16 10:29 Menthol/Methyl Salicylate (Bengay) 1 applic FOUR TIMES A DAY TOPIC 10/10/16 13:00 11/09/16 12:59 10/17/16 09:10 Ondansetron HCl (Zofran) 4 mg Q6H PRN IVP Nausea & Vomiting 10/06/16 13:30 11/05/16 13:29 Pantoprazole (Protonix) 40 mg ACBREAKFAST ORAL 10/09/16 06:30 11/06/16 08:59 10/18/16 05:58 Polyethylene Glycol (Miralax) 17 gm DAILYPRN PRN ORAL Constipation 10/06/16 19:30 11/05/16 19:29 10/12/16 21:13 Temazepam (Restoril) 15 mg HSPRN PRN ORAL Insomnia 10/14/16 08:15 10/21/16 08:14 10/17/16 02:33 Tramadol HCl (Ultram) 50 mg Q4H PRN ORAL moderate to severe pain 10/14/16 08:15 10/21/16 08:14 10/18/16 08:57 Vitamin B Complex/ Vit C/Folic Acid (Nephrovite) 1 tab DAILY ORAL 10/07/16 09:00 11/06/16 08:59 10/19/16 10:29 CARLOS ALBERTO HERMAN Oct 19, 2016 18:22
--- NOTE | 2016-10-19 18:25 | Infectious Diseases Prog Note ---
Assessment/Plan Problems: (1) Colonization with VRE (vancomycin-resistant enterococcus) Assessment & Plan: keep in contact isolation (2) ESRD (end stage renal disease) on dialysis Assessment & Plan: continue HD as per renal. (3) Cocaine abuse Assessment & Plan: recommend counseling and rehab (4) Chest pain Assessment & Plan: had stress test , cardiology is following (5) Anemia in chronic kidney disease Assessment & Plan: stable, monitor H/H transfuse as needed (6) GIB (gastrointestinal bleeding) Assessment & Plan: due to diverticulosis and polyps, S/P EGD/colonoscopy , monitor H/H and transfuse blood as needed Subjective Constitutional: Reports: no symptoms HEENT: Reports: no symptoms Respiratory: Reports: no symptoms Breasts: Reports: no symptoms Cardiovascular: Reports: no symptoms Gastrointestinal/Abdominal: Reports: no symptoms Genitourinary: Reports: no symptoms Neurologic: Reports: no symptoms Psychiatric: Reports: no symptoms Skin: Reports: no symptoms Allergies: Coded Allergies: No Known Allergies (Unverified , 09/28/16) Subjective he was up in bed, doing well , denied any fever or chills, no diarrhea Objective Vital Signs Last 24 Hour Vital Signs Date Time Temp Pulse Resp B/P Pulse Ox O2 Delivery O2 Flow Rate FiO2 10/19/16 16:00 97.3 100 20 118/75 100 Room Air 10/19/16 12:00 95.5 115 20 115/76 100 Room Air 10/19/16 10:29 127/66 10/19/16 09:39 Room Air 10/19/16 09:37 97.2 102 18 127/66 94 Room Air 10/19/16 08:00 96.3 98 18 123/68 95 Room Air 10/19/16 07:55 102 20 Room Air 21 10/19/16 06:30 Room Air 10/19/16 06:20 97.0 98 20 130/66 93 Room Air 10/19/16 04:00 97.2 95 20 126/72 100 Room Air 10/19/16 00:00 96.1 102 22 122/66 90 Room Air 10/18/16 20:25 126/78 10/18/16 20:00 95 18 126/90 98 Room Air 10/18/16 19:30 90 20 Room Air 21 Height (Feet): 5 Height (Inches): 2.00 Weight (Pounds): 163 General Appearance: WD/WN, no acute distress HEENT: normocephalic, atraumatic, anicteric Respiratory/Chest: chest wall non-tender, lungs clear, normal breath sounds, no respiratory distress, no accessory muscle use Cardiovascular: normal peripheral pulses, normal rate, regular rhythm, no gallop/murmur Abdomen: normal bowel sounds, soft, non tender, no organomegaly, non distended , no mass Extremities: no cyanosis, no clubbing Skin: no rash, no lesions, no ulcers Laboratory Tests Test 10/19/16 06:35 White Blood Count 7.7 K/UL (4.8-10.8) Red Blood Count 2.77 M/UL (4.70-6.10) L Hemoglobin 8.5 G/DL (14.2-18.0) L Hematocrit 30.1 % (42.0-52.0) L Mean Corpuscular Volume 109 FL (80-99) H Mean Corpuscular Hemoglobin 30.5 PG (27.0-31.0) Mean Corpuscular Hemoglobin Concent 28.1 G/DL (32.0-36.0) L Red Cell Distribution Width 22.5 % (11.6-14.8) H Platelet Count 423 K/UL (150-450) Mean Platelet Volume 6.0 FL (6.5-10.1) L Neutrophils (%) (Auto) 72.3 % (45.0-75.0) Lymphocytes (%) (Auto) 11.2 % (20.0-45.0) L Monocytes (%) (Auto) 12.7 % (1.0-10.0) H Eosinophils (%) (Auto) 2.0 % (0.0-3.0) Basophils (%) (Auto) 1.7 % (0.0-2.0) Sodium Level 132 mEQ/L (135-145) L Potassium Level 4.5 mEQ/L (3.4-4.9) Chloride Level 90 mEQ/L (98-107) L Carbon Dioxide Level 22 mEQ/L (20-30) Anion Gap 20 (5-15) H Blood Urea Nitrogen 36 mg/dL (7-23) H Creatinine 6.3 mg/dL (0.7-1.2) H Estimat Glomerular Filtration Rate 11.0 mL/min (>60) Glucose Level 89 mg/dL (74-106) Calcium Level 9.4 mg/dL (8.6-10.2) Current Medications Medications (Trade) Dose Ordered Sig/Lillian Route PRN Reason Start Time Stop Time Status Last Admin Dose Admin Acetaminophen (Tylenol) 650 mg Q4H PRN ORAL Fever 10/06/16 15:30 11/05/16 15:29 10/10/16 06:37 Albuterol/ Ipratropium (DuoNeb 0.5-3(2.5)mg/3ml) 3 ml Q4H PRN HHN Shortness of Breath 10/16/16 09:15 10/21/16 09:14 Dextrose (Dextrose 50%) STAT PRN IV Hypoglycemia 10/06/16 19:30 11/05/16 19:29 Epoetin Josehp (Procrit (for ESRD on dialysis)) 5,000 units TUE-WED-TUE SUBQ 10/06/16 21:00 11/05/16 20:59 10/18/16 22:02 Insulin Aspart (NovoLOG) BEFORE MEALS AND HS SUBQ 10/06/16 16:30 11/05/16 16:29 Lidocaine (Lidoderm 5% PATCH) 1 patch DAILY TDERMAL 10/07/16 09:00 11/06/16 08:59 10/17/16 09:07 Lisinopril (Zestril) 2.5 mg Q12HR ORAL 10/06/16 21:00 11/05/16 20:59 10/19/16 10:29 Menthol/Methyl Salicylate (Bengay) 1 applic FOUR TIMES A DAY TOPIC 10/10/16 13:00 11/09/16 12:59 10/17/16 09:10 Ondansetron HCl (Zofran) 4 mg Q6H PRN IVP Nausea & Vomiting 10/06/16 13:30 11/05/16 13:29 Pantoprazole (Protonix) 40 mg ACBREAKFAST ORAL 10/09/16 06:30 11/06/16 08:59 10/18/16 05:58 Polyethylene Glycol (Miralax) 17 gm DAILYPRN PRN ORAL Constipation 10/06/16 19:30 11/05/16 19:29 10/12/16 21:13 Temazepam (Restoril) 15 mg HSPRN PRN ORAL Insomnia 10/14/16 08:15 10/21/16 08:14 10/17/16 02:33 Tramadol HCl (Ultram) 50 mg Q4H PRN ORAL moderate to severe pain 10/14/16 08:15 10/21/16 08:14 10/18/16 08:57 Vitamin B Complex/ Vit C/Folic Acid (Nephrovite) 1 tab DAILY ORAL 10/07/16 09:00 11/06/16 08:59 10/19/16 10:29 Ivania Bhardwaj M.D. Oct 19, 2016 18:25
--- NOTE | 2016-10-19 18:38 | Cardiac Electrophysiology PN ---
Assessment/Plan Status Narrative Moderate left ventricular enlargement. Global left ventricular hypokinesis. Worse septal apper akinetic s. Left ventricular ejection fraction estimated to be 30-35 %. No evidence of left ventricular hypertrophy. No evidence of pericardial fat or effusion. Severe right atrial enlargement by 2D. Mild right atrial enlargement by 2D. Focal aortic valve sclerosis with adequate cusp excursion Mildly thickened mitral valve leaflets with normal excursion. Mitral annulus and aortic root calcification. Pulmonic valve is well visualized. Normal tricuspid valve structure. IVC dilated at 2.7cm no physiologic collapse with respiration.RA pressure of 20mmHg. Assessment/Plan 1. Chest pain due to cocaine vasospasm. Ruled out for myocardial infarction. Nuclear stress test showed no significant ischemia. Avoid beta-david in view of cocaine use. 2. Severe Cardiomyopathy with EF 30-35%. Off Beta david for cocaine use. On Lisinopril 2.5 bid and dialysis. 3. History of hypertension. On Lisinopril 2.5 bid. 4. End-stage renal disease, on hemodialysis. 5. Substance abuse with cocaine. 6. Anemia due to GI bleed. Stool OB positive. S/P EGD and colonoscopy that showed significant diverticulosis, Two polyps removed and Internal hemorrhoid per Dr Bal 7. Diabetes. 8. Back pain, awaiting Kyphoplasty by radiology as MRI scan of thoracic spine revealed an acute versus subacute T7 vertebral body compression fracture with reduction of the vertebral height by approximately 40%, DW RN Stable from cardiac standpoint Subjective Subjective Still has back pain. No chest pain or SOB. S/P dialysis yesterday. Objective Last 24 Hour Vital Signs Date Time Temp Pulse Resp B/P Pulse Ox O2 Delivery O2 Flow Rate FiO2 10/19/16 16:00 97.3 100 20 118/75 100 Room Air 10/19/16 12:00 95.5 115 20 115/76 100 Room Air 10/19/16 10:29 127/66 10/19/16 09:39 Room Air 10/19/16 09:37 97.2 102 18 127/66 94 Room Air 10/19/16 08:00 96.3 98 18 123/68 95 Room Air 10/19/16 07:55 102 20 Room Air 21 10/19/16 06:30 Room Air 10/19/16 06:20 97.0 98 20 130/66 93 Room Air 10/19/16 04:00 97.2 95 20 126/72 100 Room Air 10/19/16 00:00 96.1 102 22 122/66 90 Room Air 10/18/16 20:25 126/78 10/18/16 20:00 95 18 126/90 98 Room Air 10/18/16 19:30 90 20 Room Air 21 Intake and Output 10/18/16 10/19/16 19:00 07:00 Intake Total 400 ml 150 ml Output Total 50 ml Balance 400 ml 100 ml Intake Oral 400 ml 150 ml Output Urine Total 50 ml # Voids 1 2 # Bowel Movements 1 Laboratory Tests Test 10/19/16 06:35 White Blood Count 7.7 K/UL (4.8-10.8) Red Blood Count 2.77 M/UL (4.70-6.10) L Hemoglobin 8.5 G/DL (14.2-18.0) L Hematocrit 30.1 % (42.0-52.0) L Mean Corpuscular Volume 109 FL (80-99) H Mean Corpuscular Hemoglobin 30.5 PG (27.0-31.0) Mean Corpuscular Hemoglobin Concent 28.1 G/DL (32.0-36.0) L Red Cell Distribution Width 22.5 % (11.6-14.8) H Platelet Count 423 K/UL (150-450) Mean Platelet Volume 6.0 FL (6.5-10.1) L Neutrophils (%) (Auto) 72.3 % (45.0-75.0) Lymphocytes (%) (Auto) 11.2 % (20.0-45.0) L Monocytes (%) (Auto) 12.7 % (1.0-10.0) H Eosinophils (%) (Auto) 2.0 % (0.0-3.0) Basophils (%) (Auto) 1.7 % (0.0-2.0) Sodium Level 132 mEQ/L (135-145) L Potassium Level 4.5 mEQ/L (3.4-4.9) Chloride Level 90 mEQ/L (98-107) L Carbon Dioxide Level 22 mEQ/L (20-30) Anion Gap 20 (5-15) H Blood Urea Nitrogen 36 mg/dL (7-23) H Creatinine 6.3 mg/dL (0.7-1.2) H Estimat Glomerular Filtration Rate 11.0 mL/min (>60) Glucose Level 89 mg/dL (74-106) Calcium Level 9.4 mg/dL (8.6-10.2) Objective HEAD AND NECK: No jugular venous distention or carotid bruits. LUNGS: Clear. CARDIOVASCULAR: Regular S1 and S2 with no gallop or murmur. ABDOMEN: Soft and nontender. EXTREMITIES: No pitting edema. Dialysis access in the right chest. DILIA GUERRERO Oct 19, 2016 18:38
[2016-10-20 00:10] VITALS: BP 115/78
[2016-10-20 04:00] VITALS: BP 108/74
[2016-10-20] MEDS: traMADol 50mg tab ORAL PRN (04:26)
[2016-10-20] MEDS: NovoLOG Insulin Flexpen SUBQ SCH ×4 (06:18→21:00)
[2016-10-20 08:00] VITALS: BP 122/79
[2016-10-20] MEDS: Lisinopril 2.5mg tab ORAL SCH ×2 (08:18→22:16)
[2016-10-20] MEDS: Nephrovite tab ORAL SCH (08:18)
[2016-10-20] MEDS: Analgesic Balm 15gm TOPIC SCH ×6 (08:19→21:00)
--- NOTE | 2016-10-20 09:04 | General Progress Note ---
Assessment/Plan Assessment/Plan (1) Cocaine abuse (2) Chest pain (3) CHF (4) ESRD on Hemodialysis (5) Lumbar sprain s/p fall (6) T spine compression fracture Kyphoplasty pending. Pt will be continued on Bengay cream, Lidoderm patch and tramadol. Pt was d/w Dr. Rodriguez and he concurred. Subjective Date patient seen: Oct 20, 2016 Time patient seen: 07:45 - am Allergies: Coded Allergies: No Known Allergies (Unverified , 09/28/16) Subjective REVIEW OF SYSTEMS: Denies rash, fever, chills, sweating, dizziness, drowsiness, blurred vision, sore throat, or change in weight. No nausea, vomiting, diarrhea, or blood urine. No bowel or bladder incontinence. No dysuria. c/o back pain SUBJECTIVE: Pt reports that he continues to have pain his back worse with movement waiting for kyphoplasty procedure. Objective Last 24 Hour Vital Signs Date Time Temp Pulse Resp B/P Pulse Ox O2 Delivery O2 Flow Rate FiO2 10/20/16 08:18 122/79 10/20/16 08:00 97.6 94 19 122/79 96 Room Air 10/20/16 04:00 97.0 101 20 108/74 97 Room Air 10/20/16 00:10 97.0 106 20 115/78 95 Room Air 10/19/16 20:35 105 20 Room Air 21 10/19/16 20:30 122/66 10/19/16 19:00 97.5 100 20 122/66 100 Room Air 10/19/16 16:00 97.3 100 20 118/75 100 Room Air 10/19/16 12:00 95.5 115 20 115/76 100 Room Air 10/19/16 10:29 127/66 10/19/16 09:39 Room Air 10/19/16 09:37 97.2 102 18 127/66 94 Room Air Intake and Output 10/19/16 10/20/16 19:00 07:00 Intake Total 440 ml 120 ml Output Total 1800 ml Balance -1360 ml 120 ml Intake Oral 440 ml 120 ml Hemodialysis UF 1800 ml # Voids 4 # Bowel Movements 1 Height (Feet): 5 Height (Inches): 2.00 Weight (Pounds): 165 Objective PHYSICAL EXAMINATION: GENERAL: Alert, awake, and oriented. HEENT: PERRLA. NECK: Range of motion is full in all directions. No tenderness to paracervical muscles. No adenopathy. LUNGS: Decreased breath sounds bilaterally. HEART: S1 and S2, regular. ABDOMEN: Obese. BACK: Range of motion is decreased in flexion and extension with tenderness to paraspinous and trapezius muscles. EXTREMITIES: No cyanosis, no clubbing, edema noted on RUE. NEURO: No changes. Procedure: NM Bone Scan Whole body Impression: T7 uptake corresponding to relatively recent fracture. Negative exam otherwise. No evidence of metastatic neoplasm ARRON EDWARD Oct 20, 2016 09:04
--- NOTE | 2016-10-20 10:30 | Cardiac Electrophysiology PN ---
Assessment/Plan Status Narrative Moderate left ventricular enlargement. Global left ventricular hypokinesis. Worse septal apper akinetic s. Left ventricular ejection fraction estimated to be 30-35 %. No evidence of left ventricular hypertrophy. No evidence of pericardial fat or effusion. Severe right atrial enlargement by 2D. Mild right atrial enlargement by 2D. Focal aortic valve sclerosis with adequate cusp excursion Mildly thickened mitral valve leaflets with normal excursion. Mitral annulus and aortic root calcification. Pulmonic valve is well visualized. Normal tricuspid valve structure. IVC dilated at 2.7cm no physiologic collapse with respiration.RA pressure of 20mmHg. Assessment/Plan 1. Chest pain due to cocaine vasospasm. Ruled out for myocardial infarction. Nuclear stress test showed no significant ischemia. Avoid beta-david for cocaine use. 2. Severe Cardiomyopathy with EF 30-35%. Off Beta david for cocaine use. On Lisinopril 2.5 bid and dialysis. 3. History of hypertension. On Lisinopril 2.5 bid. 4. End-stage renal disease, on hemodialysis. 5. Substance abuse with cocaine. 6. Anemia due to GI bleed. Stool OB positive. S/P EGD and colonoscopy that showed significant diverticulosis, Two polyps removed and Internal hemorrhoid per Dr Bal 7. Diabetes. 8. Back pain, MRI scan of thoracic spine revealed an acute versus subacute T7 vertebral body compression fracture with reduction of the vertebral height by approximately 40%, Awaiting Kyphoplasty. Stable from cardiac standpoint. ZOHREH RN Subjective Subjective Still has back pain and awaiting kyphoplasty. No chest pain or SOB. RN at bedside. Objective Last 24 Hour Vital Signs Date Time Temp Pulse Resp B/P Pulse Ox O2 Delivery O2 Flow Rate FiO2 10/20/16 08:18 122/79 10/20/16 08:00 97.6 94 19 122/79 96 Room Air 10/20/16 04:00 97.0 101 20 108/74 97 Room Air 10/20/16 00:10 97.0 106 20 115/78 95 Room Air 10/19/16 20:35 105 20 Room Air 21 10/19/16 20:30 122/66 10/19/16 19:00 97.5 100 20 122/66 100 Room Air 10/19/16 16:00 97.3 100 20 118/75 100 Room Air 10/19/16 12:00 95.5 115 20 115/76 100 Room Air 10/19/16 10:29 127/66 Intake and Output 10/19/16 10/20/16 19:00 07:00 Intake Total 440 ml 120 ml Output Total 1800 ml Balance -1360 ml 120 ml Intake Oral 440 ml 120 ml Hemodialysis UF 1800 ml # Voids 4 # Bowel Movements 1 Labs Test 10/19/16 06:35 White Blood Count 7.7 K/UL (4.8-10.8) Red Blood Count 2.77 M/UL (4.70-6.10) Hemoglobin 8.5 G/DL (14.2-18.0) Hematocrit 30.1 % (42.0-52.0) Mean Corpuscular Volume 109 FL (80-99) Mean Corpuscular Hemoglobin 30.5 PG (27.0-31.0) Mean Corpuscular Hemoglobin Concent 28.1 G/DL (32.0-36.0) Red Cell Distribution Width 22.5 % (11.6-14.8) Platelet Count 423 K/UL (150-450) Mean Platelet Volume 6.0 FL (6.5-10.1) Neutrophils (%) (Auto) 72.3 % (45.0-75.0) Lymphocytes (%) (Auto) 11.2 % (20.0-45.0) Monocytes (%) (Auto) 12.7 % (1.0-10.0) Eosinophils (%) (Auto) 2.0 % (0.0-3.0) Basophils (%) (Auto) 1.7 % (0.0-2.0) Sodium Level 132 mEQ/L (135-145) Potassium Level 4.5 mEQ/L (3.4-4.9) Chloride Level 90 mEQ/L (98-107) Carbon Dioxide Level 22 mEQ/L (20-30) Anion Gap 20 (5-15) Blood Urea Nitrogen 36 mg/dL (7-23) Creatinine 6.3 mg/dL (0.7-1.2) Estimat Glomerular Filtration Rate 11.0 mL/min (>60) Glucose Level 89 mg/dL (74-106) Calcium Level 9.4 mg/dL (8.6-10.2) Current Medications Medications (Trade) Dose Ordered Sig/Lillian Route PRN Reason Start Time Stop Time Status Last Admin Dose Admin Acetaminophen (Tylenol) 650 mg Q4H PRN ORAL Fever 10/06/16 15:30 11/05/16 15:29 10/10/16 06:37 Albuterol/ Ipratropium (DuoNeb 0.5-3(2.5)mg/3ml) 3 ml Q4H PRN HHN Shortness of Breath 10/16/16 09:15 10/21/16 09:14 Dextrose (Dextrose 50%) STAT PRN IV Hypoglycemia 10/06/16 19:30 11/05/16 19:29 Epoetin Joseph (Procrit (for ESRD on dialysis)) 5,000 units TUE-TUE-TUE SUBQ 10/06/16 21:00 11/05/16 20:59 10/18/16 22:02 Insulin Aspart (NovoLOG) BEFORE MEALS AND HS SUBQ 10/06/16 16:30 11/05/16 16:29 Lidocaine (Lidoderm 5% PATCH) 1 patch DAILY TDERMAL 10/07/16 09:00 11/06/16 08:59 10/20/16 08:19 Lisinopril (Zestril) 2.5 mg Q12HR ORAL 10/06/16 21:00 11/05/16 20:59 10/20/16 08:18 Menthol/Methyl Salicylate (Bengay) 1 applic FOUR TIMES A DAY TOPIC 10/10/16 13:00 11/09/16 12:59 10/20/16 08:19 Ondansetron HCl (Zofran) 4 mg Q6H PRN IVP Nausea & Vomiting 10/06/16 13:30 11/05/16 13:29 Pantoprazole (Protonix) 40 mg ACBREAKFAST ORAL 10/09/16 06:30 11/06/16 08:59 10/20/16 06:00 Polyethylene Glycol (Miralax) 17 gm DAILYPRN PRN ORAL Constipation 10/06/16 19:30 11/05/16 19:29 10/12/16 21:13 Temazepam (Restoril) 15 mg HSPRN PRN ORAL Insomnia 10/14/16 08:15 10/21/16 08:14 10/17/16 02:33 Tramadol HCl (Ultram) 50 mg Q4H PRN ORAL moderate to severe pain 10/14/16 08:15 10/21/16 08:14 10/20/16 04:26 Vitamin B Complex/ Vit C/Folic Acid (Nephrovite) 1 tab DAILY ORAL 10/07/16 09:00 11/06/16 08:59 10/20/16 08:18 Objective HEAD AND NECK: No jugular venous distention or carotid bruits. LUNGS: Clear. CARDIOVASCULAR: Regular S1 and S2 with no gallop or murmur. ABDOMEN: Soft and nontender. EXTREMITIES: No pitting edema. Dialysis access in the right chest. DILIA GUERRERO Oct 20, 2016 10:30
[2016-10-20 12:00] VITALS: BP 116/74
--- NOTE | 2016-10-20 13:43 | General Progress Note ---
Assessment/Plan Status: stable Assessment/Plan Status: (1) ESRD (end stage renal disease) on dialysis (2) Chest pain (3) Cocaine abuse (4) Anemia in chronic kidney disease (5) ? DVT right UE (6) Cardiomyopathy: Global left ventricular hypokinesis. Worse septal apper akinetic s. Left ventricular ejection fraction estimated to be 30-35 %. MR: Positive for acute or subacute T7 vertebral body compression fracture. Plan: had dialysis access placed / HD 10/19- next 10/21 On marcie inhibitors- per consultants ? DC planning ?? Kyphoplasty? Subjective ROS Limited/Unobtainable: No Constitutional: Reports: malaise Allergies: Coded Allergies: No Known Allergies (Unverified , 09/28/16) Objective Last 24 Hour Vital Signs Date Time Temp Pulse Resp B/P Pulse Ox O2 Delivery O2 Flow Rate FiO2 10/20/16 12:00 97.2 98 20 116/74 97 Room Air 10/20/16 08:18 122/79 10/20/16 08:00 97.6 94 19 122/79 96 Room Air 10/20/16 04:00 97.0 101 20 108/74 97 Room Air 10/20/16 00:10 97.0 106 20 115/78 95 Room Air 10/19/16 20:35 105 20 Room Air 21 10/19/16 20:30 122/66 10/19/16 19:00 97.5 100 20 122/66 100 Room Air 10/19/16 16:00 97.3 100 20 118/75 100 Room Air Intake and Output 10/19/16 10/20/16 19:00 07:00 Intake Total 440 ml 120 ml Output Total 1800 ml Balance -1360 ml 120 ml Intake Oral 440 ml 120 ml Hemodialysis UF 1800 ml # Voids 4 # Bowel Movements 1 Height (Feet): 5 Height (Inches): 2.00 Weight (Pounds): 165 General Appearance: no apparent distress Objective no change in PE KALEY RIOS Oct 20, 2016 13:43
[2016-10-20 16:00] VITALS: BP 122/72
--- NOTE | 2016-10-20 16:02 | GI Progress Note ---
Assessment/Plan Problems: (1) GIB (gastrointestinal bleeding) ICD Codes: K92.2 - Gastrointestinal hemorrhage, unspecified SNOMED: 50992129 (2) Cocaine abuse ICD Codes: F14.10 - Cocaine abuse, uncomplicated SNOMED: 76406397, 143275990 (3) Anemia in chronic kidney disease ICD Codes: N18.9 - Chronic kidney disease, unspecified; D63.1 - Anemia in chronic kidney disease SNOMED: 403136063, 125969821 (4) Chest pain ICD Codes: R07.9 - Chest pain, unspecified SNOMED: 14904554, 482081394 Qualifiers: Qualified Codes: R07.9 - Chest pain, unspecified Status: stable, unchanged Status Narrative Discussed with Dr. Bal. Assessment/Plan SUMMARY OF FINDINGS: 1. Significant diverticulosis. 2. Two polyps removed, see above for details. 3. Internal hemorrhoids. RECOMMENDATIONS: ok for DC per GI standpoint cardiac diet monitor H&H, transfuse prn PPI fu biopsy for HP >> negative repeat colon x 3 years fu labs fu with PCP Subjective Subjective denies any GI symptoms. back pain Objective Last 24 Hour Vital Signs Date Time Temp Pulse Resp B/P Pulse Ox O2 Delivery O2 Flow Rate FiO2 10/20/16 12:00 97.2 98 20 116/74 97 Room Air 10/20/16 08:18 122/79 10/20/16 08:00 97.6 94 19 122/79 96 Room Air 10/20/16 04:00 97.0 101 20 108/74 97 Room Air 10/20/16 00:10 97.0 106 20 115/78 95 Room Air 10/19/16 20:35 105 20 Room Air 21 10/19/16 20:30 122/66 10/19/16 19:00 97.5 100 20 122/66 100 Room Air 10/19/16 16:00 97.3 100 20 118/75 100 Room Air Intake and Output 10/19/16 10/20/16 19:00 07:00 Intake Total 440 ml 120 ml Output Total 1800 ml Balance -1360 ml 120 ml Intake Oral 440 ml 120 ml Hemodialysis UF 1800 ml # Voids 4 # Bowel Movements 1 Height (Feet): 5 Height (Inches): 2.00 Weight (Pounds): 165 General Appearance: no apparent distress, alert Cardiovascular: normal rate Respiratory/Chest: normal breath sounds, no respiratory distress Abdominal Exam: normal bowel sounds, non tender, soft Sole Lucio N.P. Oct 20, 2016 16:02
--- NOTE | 2016-10-20 17:09 | General Progress Note ---
Assessment/Plan Assessment/Plan ASSESSMENT: 1. Anemia secondary to end-stage renal disease. Ferritin is 711. Is on epogen and HD on prn basis 2. Acute drop in hgb, consider GI bleed, has been cleared by cards, pending colo 3. Thrombocytopenia potentially secondary to underlying infection. hep and hiv - , has improved 4. Coagulopathy INR is 1.2, improved 5. Diabetes mellitus. 6. End-stage renal disease on hemodialysis. 7. Cocaine use history. RECOMMENDATIONS: 1. Monitor counts. 2. Transfuse if hemoglobin < 7.0 3. Continue epogen 4. Followup GI recs - is now s/p colo 5. Followup on Nephrology, Pulmonary, GI, Cards recs 6. Transfuse if plts <20k 7. DVT prophylaxis with scds 8. GI prophylaxis ppi 9. Pain control. 10. staff. Thank you, Hugh Lopez MD Subjective Constitutional: Reports: no symptoms HEENT: Reports: no symptoms Cardiovascular: Reports: no symptoms Respiratory: Reports: no symptoms Gastrointestinal/Abdominal: Reports: poor appetite Genitourinary: Reports: no symptoms 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: Reports: no symptoms Endocrine: Reports: no symptoms Hematologic/Lymphatic: Reports: anemia Allergies: Coded Allergies: No Known Allergies (Unverified , 09/28/16) Subjective awake, is not bleeding Objective Last 24 Hour Vital Signs Date Time Temp Pulse Resp B/P Pulse Ox O2 Delivery O2 Flow Rate FiO2 10/20/16 16:00 98.1 98 20 122/72 97 Room Air 10/20/16 12:00 97.2 98 20 116/74 97 Room Air 10/20/16 08:18 122/79 10/20/16 08:00 97.6 94 19 122/79 96 Room Air 10/20/16 04:00 97.0 101 20 108/74 97 Room Air 10/20/16 00:10 97.0 106 20 115/78 95 Room Air 10/19/16 20:35 105 20 Room Air 21 10/19/16 20:30 122/66 10/19/16 19:00 97.5 100 20 122/66 100 Room Air Intake and Output 10/19/16 10/20/16 19:00 07:00 Intake Total 440 ml 120 ml Output Total 1800 ml Balance -1360 ml 120 ml Intake Oral 440 ml 120 ml Hemodialysis UF 1800 ml # Voids 4 # Bowel Movements 1 Height (Feet): 5 Height (Inches): 2.00 Weight (Pounds): 165 General Appearance: no apparent distress EENT: TMs normal Neck: supple Cardiovascular: regular rhythm Respiratory/Chest: lungs clear Abdomen: soft Extremities: non-tender Edema: no edema noted Leg (L), no edema noted Leg (R) Edema: mild edema Neurologic: alert Skin: warm/dry Hugh Lopez Oct 20, 2016 17:09
--- NOTE | 2016-10-20 18:23 | General Progress Note ---
Assessment/Plan Problem List: (1) Cocaine abuse ICD Codes: F14.10 - Cocaine abuse, uncomplicated SNOMED: 84247014, 698770369 (2) Chest pain ICD Codes: R07.9 - Chest pain, unspecified SNOMED: 26641471, 282741296 Qualifiers: Qualified Codes: R07.9 - Chest pain, unspecified Status: progressing Assessment/Plan acute compression fracture t7 kyphoplasty vitals stable no bleeding no cp Subjective ROS Limited/Unobtainable: Yes HEENT: Reports: no symptoms Allergies: Coded Allergies: No Known Allergies (Unverified , 09/28/16) Subjective back pain Objective Last 24 Hour Vital Signs Date Time Temp Pulse Resp B/P Pulse Ox O2 Delivery O2 Flow Rate FiO2 10/20/16 16:00 98.1 98 20 122/72 97 Room Air 10/20/16 12:00 97.2 98 20 116/74 97 Room Air 10/20/16 08:18 122/79 10/20/16 08:00 97.6 94 19 122/79 96 Room Air 10/20/16 07:17 101 18 Room Air 21 10/20/16 04:00 97.0 101 20 108/74 97 Room Air 10/20/16 00:10 97.0 106 20 115/78 95 Room Air 10/19/16 20:35 105 20 Room Air 21 10/19/16 20:30 122/66 10/19/16 19:00 97.5 100 20 122/66 100 Room Air Intake and Output 10/19/16 10/20/16 19:00 07:00 Intake Total 440 ml 120 ml Output Total 1800 ml Balance -1360 ml 120 ml Intake Oral 440 ml 120 ml Hemodialysis UF 1800 ml # Voids 4 # Bowel Movements 1 Height (Feet): 5 Height (Inches): 2.00 Weight (Pounds): 165 EENT: PERRL/EOMI Neck: supple Cardiovascular: normal rate Respiratory/Chest: lungs clear Liu Elizondo MD Oct 20, 2016 18:22
--- NOTE | 2016-10-20 18:25 | Neurology Progress Note ---
Interim History Interim History Interim History Mr. Hines feels about the same as yesterday. He was sitting up at the edge of he bed. The back pain is about the same - still bothersome. The legs are strong. He denies any new neurologic symptoms. He specifically denies any new weakness, numbness, speech or language problems. Review of Systems Neuro Review of Systems Benign. Objective Physical Exam Last Vital Signs Date Time Temp Pulse Resp B/P Pulse Ox O2 Delivery O2 Flow Rate FiO2 10/20/16 16:00 98.1 98 20 122/72 97 Room Air 10/20/16 07:17 21 10/13/16 10:15 5.0 Neurologic Exam Objective PHYSICAL EXAMINATION: GENERAL: He is a well-developed, well-nourished, pleasant black gentleman, sitting at the edge of his bed, in no acute distress. HEAD: Normocephalic and atraumatic. EENT: Examination benign NECK: No neck rigidity was observed. NEUROLOGICAL EXAMINATION: MENTAL STATUS EXAMINATION: He was alert and awake. He was oriented to [facility], [facility], and October 20, 2016. He was able to recall 3/3 words immediately, but could only remember 2/3 words in 1 minute and 3 minutes. He knew that Obama was President, but could not remember presidents prior to that. His mathematical skills were impaired. His visuospatial function was also impaired. SPEECH: He had no dysarthria. LANGUAGE: He had anomia for low frequency words. CRANIAL NERVE EXAMINATION: II: The visual glaser were intact in the right eye. In the left eye vision was poor . III, IV & : External ocular movements are full in the right eye and restricted in the left eye. V: He had normal facial sensations and the temporales, masseters, and pterygoids function normally. VII: He had normal facial expressions and no facial asymmetry. VIII: He was able to hear well bilaterally and had no nystagmus. IX: The palate moved symmetrically on phonation. X: He had no hoarseness of voice. XI: The sternocleidomastoids and trapezii functioned normally. XII: The tongue was in the midline without any fasciculations or atrophy. MOTOR SYSTEM: The tone was normal in all four extremities. Examination of muscle mass revealed no definite focal wasting however it should be noticed that his right upper extremity was significantly swollen. Examination of power revealed grade 5/5 power in all muscle groups tested. SENSORY EXAMINATION: He had intact sensations to pinprick, light touch, and graphesthesia. COORDINATION: He performed well on [id number] and [id number] testing. REFLEXES: 0 at the biceps, triceps, brachioradialis, knees, and ankles. The plantar responses were flexor bilaterally. STANCE: He stood up with contact guard. GAIT: He walked well with contact guard. Impression/Recommendations Diagnostic Impression 1. Mr. Demetrius Hines is a 60-year-old, right-handed, black gentleman, with past history of hypertension, diabetes mellitus, end-stage renal disease, and polysubstance abuse with tetrahydrocannabinol and cocaine who was hospitalized at another hospital prior to his hospitalization at [facility] on 09/29/2016. When he came in he did have some mid back pain which was quite severe for the first few days, but has been much better in the last few days. He was evaluated for this pain and was found to have a T7 compression fracture. 2. The back pain is stable and has not developed any new neurologic symptoms. 3. On neurological examination, at this time, he does have problems with recent and remote memory, higher cognitive function, and language. He also has point tenderness over his mid thoracic spine predominantly in the T6 and T7 region. In addition, the deep tendon reflexes are globally absent. 4. An MRI scan of thoracic spine revealed an acute versus subacute T7 vertebral body compression fracture with reduction of the vertebral height by approximately 40%, a T10 vertebral body abnormal high T2 signal area is also seen which most probably represents either a hemangioma or a neoplasm. 5. The patient's history and neurological examination are most compatible with a subacute T7 compression fracture which is most probably traumatic in nature. He does not demonstrate any signs of spinal cord dysfunction at this point in time. Recommendations 1. Continue present management. 2. Kyphoplasty by radiologist on 10/21/16. Patricia Barron M.D., M.S.P.H. PATRICIA BARRON Oct 20, 2016 18:25
--- NOTE | 2016-10-20 18:32 | Infectious Diseases Prog Note ---
Assessment/Plan Problems: (1) Colonization with VRE (vancomycin-resistant enterococcus) Assessment & Plan: keep in contact isolation (2) ESRD (end stage renal disease) on dialysis Assessment & Plan: continue HD as per renal. (3) Cocaine abuse Assessment & Plan: recommend counseling and rehab (4) Chest pain Assessment & Plan: had stress test , cardiology is following (5) Anemia in chronic kidney disease Assessment & Plan: stable, monitor H/H transfuse as needed (6) GIB (gastrointestinal bleeding) Assessment & Plan: due to diverticulosis and polyps, S/P EGD/colonoscopy , monitor H/H and transfuse blood as needed Subjective Constitutional: Reports: no symptoms HEENT: Reports: no symptoms Respiratory: Reports: no symptoms Breasts: Reports: no symptoms Cardiovascular: Reports: no symptoms Gastrointestinal/Abdominal: Reports: no symptoms Genitourinary: Reports: no symptoms Neurologic: Reports: no symptoms Psychiatric: Reports: no symptoms Skin: Reports: no symptoms Endocrine: Reports: no symptoms Hematologic: Reports: no symptoms Musculoskeletal: Reports: no symptoms Allergies: Coded Allergies: No Known Allergies (Unverified , 09/28/16) Subjective he was up in bed, doing well , denied any fever or chills, no diarrhea Objective Vital Signs Last 24 Hour Vital Signs Date Time Temp Pulse Resp B/P Pulse Ox O2 Delivery O2 Flow Rate FiO2 10/20/16 16:00 98.1 98 20 122/72 97 Room Air 10/20/16 12:00 97.2 98 20 116/74 97 Room Air 10/20/16 08:18 122/79 10/20/16 08:00 97.6 94 19 122/79 96 Room Air 10/20/16 07:17 101 18 Room Air 10/20/16 04:00 97.0 101 20 108/74 97 Room Air 10/20/16 00:10 97.0 106 20 115/78 95 Room Air 10/19/16 20:35 105 20 Room Air 21 10/19/16 20:30 122/66 10/19/16 19:00 97.5 100 20 122/66 100 Room Air Height (Feet): 5 Height (Inches): 2.00 Weight (Pounds): 165 General Appearance: WD/WN, no acute distress HEENT: normocephalic, atraumatic, anicteric Respiratory/Chest: chest wall non-tender, lungs clear, normal breath sounds, no respiratory distress, no accessory muscle use Cardiovascular: normal peripheral pulses, normal rate, regular rhythm, no gallop/murmur Abdomen: normal bowel sounds, soft, non tender, no organomegaly, non distended , no mass, no scars Skin: no rash, no lesions Current Medications Medications (Trade) Dose Ordered Sig/Lillian Route PRN Reason Start Time Stop Time Status Last Admin Dose Admin Acetaminophen (Tylenol) 650 mg Q4H PRN ORAL Fever 10/06/16 15:30 11/05/16 15:29 10/10/16 06:37 Albuterol/ Ipratropium (DuoNeb 0.5-3(2.5)mg/3ml) 3 ml Q4H PRN HHN Shortness of Breath 10/16/16 09:15 10/21/16 09:14 Dextrose (Dextrose 50%) STAT PRN IV Hypoglycemia 10/06/16 19:30 11/05/16 19:29 Epoetin Joseph (Procrit (for ESRD on dialysis)) 5,000 units TUE-TUE-TUE SUBQ 10/06/16 21:00 11/05/16 20:59 10/18/16 22:02 Insulin Aspart (NovoLOG) BEFORE MEALS AND HS SUBQ 10/06/16 16:30 11/05/16 16:29 Lidocaine (Lidoderm 5% PATCH) 1 patch DAILY TDERMAL 10/07/16 09:00 11/06/16 08:59 10/20/16 08:19 Lisinopril (Zestril) 2.5 mg Q12HR ORAL 10/06/16 21:00 11/05/16 20:59 10/20/16 08:18 Menthol/Methyl Salicylate (Bengay) 1 applic FOUR TIMES A DAY TOPIC 10/10/16 13:00 11/09/16 12:59 10/20/16 18:22 Ondansetron HCl (Zofran) 4 mg Q6H PRN IVP Nausea & Vomiting 10/06/16 13:30 11/05/16 13:29 Pantoprazole (Protonix) 40 mg ACBREAKFAST ORAL 10/09/16 06:30 11/06/16 08:59 10/20/16 06:00 Polyethylene Glycol (Miralax) 17 gm DAILYPRN PRN ORAL Constipation 10/06/16 19:30 11/05/16 19:29 10/12/16 21:13 Temazepam (Restoril) 15 mg HSPRN PRN ORAL Insomnia 10/14/16 08:15 10/21/16 08:14 10/17/16 02:33 Tramadol HCl (Ultram) 50 mg Q4H PRN ORAL moderate to severe pain 10/14/16 08:15 10/21/16 08:14 10/20/16 04:26 Vitamin B Complex/ Vit C/Folic Acid (Nephrovite) 1 tab DAILY ORAL 10/07/16 09:00 11/06/16 08:59 10/20/16 08:18 Ivania Bhardwaj M.D. Oct 20, 2016 18:32
--- NOTE | 2016-10-20 19:00 | Pulmonology Progress Note ---
Assessment/Plan Problems: (1) Chest pain Assessment & Plan: stress study was negative (2) Acute respiratory failure Assessment & Plan: improved (3) Anemia in chronic kidney disease (4) ESRD (end stage renal disease) on dialysis (5) Fluid overload (6) Cocaine abuse (7) Back pain Assessment/Plan Hd access fell off, Needs a new access cardiac evaluation appreciated HD as needed med/surg if ok with Cardio Subjective ROS Limited/Unobtainable: No Constitutional: Reports: anorexia, fatigue Respiratory: Reports: dry cough, dyspnea at rest, dyspnea on exertion, shortness of breath, wheezing Cardiovascular: Reports: chest pain, palpitations Allergies: Coded Allergies: No Known Allergies (Unverified , 09/28/16) Objective Last 24 Hour Vital Signs Date Time Temp Pulse Resp B/P Pulse Ox O2 Delivery O2 Flow Rate FiO2 10/20/16 16:00 98.1 98 20 122/72 97 Room Air 10/20/16 12:00 97.2 98 20 116/74 97 Room Air 10/20/16 08:18 122/79 10/20/16 08:00 97.6 94 19 122/79 96 Room Air 10/20/16 07:17 101 18 Room Air 21 10/20/16 04:00 97.0 101 20 108/74 97 Room Air 10/20/16 00:10 97.0 106 20 115/78 95 Room Air 10/19/16 20:35 105 20 Room Air 21 10/19/16 20:30 122/66 Intake and Output 10/19/16 10/20/16 19:00 07:00 Intake Total 440 ml 120 ml Output Total 1800 ml Balance -1360 ml 120 ml Intake Oral 440 ml 120 ml Hemodialysis UF 1800 ml # Voids 4 # Bowel Movements 1 General Appearance: no acute distress HEENT: normocephalic, atraumatic, PERRL Respiratory/Chest: decreased breath sounds, accessory muscle use Cardiovascular: normal peripheral pulses, normal rate, regular rhythm, no JVD Abdomen: normal bowel sounds, soft, non tender, no organomegaly, non distended Genitourinary: normal external genitalia Extremities: no cyanosis 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: developmental therapist II-XII grossly normal, no motor/sensory deficits Current Medications Medications (Trade) Dose Ordered Sig/Lillian Route PRN Reason Start Time Stop Time Status Last Admin Dose Admin Acetaminophen (Tylenol) 650 mg Q4H PRN ORAL Fever 10/06/16 15:30 11/05/16 15:29 10/10/16 06:37 Albuterol/ Ipratropium (DuoNeb 0.5-3(2.5)mg/3ml) 3 ml Q4H PRN HHN Shortness of Breath 10/16/16 09:15 10/21/16 09:14 Dextrose (Dextrose 50%) STAT PRN IV Hypoglycemia 10/06/16 19:30 11/05/16 19:29 Epoetin Joseph (Procrit (for ESRD on dialysis)) 5,000 units TUE-TUE-TUE SUBQ 10/06/16 21:00 11/05/16 20:59 10/18/16 22:02 Insulin Aspart (NovoLOG) BEFORE MEALS AND HS SUBQ 10/06/16 16:30 11/05/16 16:29 Lidocaine (Lidoderm 5% PATCH) 1 patch DAILY TDERMAL 10/07/16 09:00 11/06/16 08:59 10/20/16 08:19 Lisinopril (Zestril) 2.5 mg Q12HR ORAL 10/06/16 21:00 11/05/16 20:59 10/20/16 08:18 Menthol/Methyl Salicylate (Bengay) 1 applic FOUR TIMES A DAY TOPIC 10/10/16 13:00 11/09/16 12:59 10/20/16 18:22 Ondansetron HCl (Zofran) 4 mg Q6H PRN IVP Nausea & Vomiting 10/06/16 13:30 11/05/16 13:29 Pantoprazole (Protonix) 40 mg ACBREAKFAST ORAL 10/09/16 06:30 11/06/16 08:59 10/20/16 06:00 Polyethylene Glycol (Miralax) 17 gm DAILYPRN PRN ORAL Constipation 10/06/16 19:30 11/05/16 19:29 10/12/16 21:13 Temazepam (Restoril) 15 mg HSPRN PRN ORAL Insomnia 10/14/16 08:15 10/21/16 08:14 10/17/16 02:33 Tramadol HCl (Ultram) 50 mg Q4H PRN ORAL moderate to severe pain 10/14/16 08:15 10/21/16 08:14 10/20/16 04:26 Vitamin B Complex/ Vit C/Folic Acid (Nephrovite) 1 tab DAILY ORAL 10/07/16 09:00 11/06/16 08:59 10/20/16 08:18 CARLOS ALBERTO HERMAN Oct 20, 2016 19:00
[2016-10-20 20:00] VITALS: BP 120/75
[2016-10-20] MEDS: Epogen (for ESRD on dialysis) SUBQ SCH (22:16)
[2016-10-21] VITALS (16 sets, daily range): BP systolic 103–122; BP diastolic 56–84
[2016-10-21] MEDS: NovoLOG Insulin Flexpen SUBQ SCH ×4 (06:26→20:31)
[2016-10-21 07:42] LABS: BASOPHILS % (AUTO) 1.4 % (0.0-2.0); EOSINOPHILS % (AUTO) 1.7 % (0.0-3.0); LYMPHOCYTES % (AUTO) 8.7 % (20.0-45.0); MEAN CORPUSCULAR HEMOGLOBIN 32.2 PG (27.0-31.0); MEAN CORPUSCULAR HGB CONC 29.6 G/DL (32.0-36.0); MEAN CORPUSCULAR VOLUME 109 FL (80-99); MEAN PLATELET VOLUME 6.1 FL (6.5-10.1); MONOCYTES % (AUTO) 11.8 % (1.0-10.0); NEUTROPHILS % (AUTO) 76.4 % (45.0-75.0); PLATELET COUNT 351 K/UL (150-450); RED BLOOD COUNT 2.74 M/UL (4.70-6.10); RED CELL DISTRIBUTION WIDTH 22.8 % (11.6-14.8); WHITE BLOOD COUNT 7.5 K/UL (4.8-10.8)
[2016-10-21 07:57] LABS: INR 1.3 (0.9-1.1); PROTHROMBIN TIME 12.8 SEC (9.30-11.50)
[2016-10-21 08:19] LABS: ALBUMIN/GLOBULIN RATIO 0.9 (1.0-2.7); CALCIUM 9.7 mg/dL (8.6-10.2); CREATININE 5.8 mg/dL (0.7-1.2); CRP QUANT 3.8 mg/dL (< 0.5); GLOMERULAR FILTRATION RATE 12.1 mL/min (>60); PHOSPHORUS 5.2 mg/dL (2.5-4.8); POTASSIUM 4.7 mEQ/L (3.4-4.9); TOTAL PROTEIN 6.7 g/dL (6.6-8.7)
--- NOTE | 2016-10-21 08:55 | General Progress Note ---
Assessment/Plan Assessment/Plan (1) Cocaine abuse (2) Chest pain (3) CHF (4) ESRD on Hemodialysis (5) Lumbar sprain s/p fall (6) T spine compression fracture Kyphoplasty pending. Pt will be continued on Bengay cream, Lidoderm patch and tramadol. Pt was d/w Dr. Rodriguez and he concurred. Subjective Date patient seen: Oct 21, 2016 Time patient seen: 08:30 - am Allergies: Coded Allergies: No Known Allergies (Unverified , 09/28/16) Subjective REVIEW OF SYSTEMS: Denies rash, fever, chills, sweating, dizziness, drowsiness, blurred vision, sore throat, or change in weight. No nausea, vomiting, diarrhea, or blood urine. No bowel or bladder incontinence. No dysuria. c/o back pain SUBJECTIVE: No new changes as per pt the pain is reduced on the tramadol. Objective Last 24 Hour Vital Signs Date Time Temp Pulse Resp B/P Pulse Ox O2 Delivery O2 Flow Rate FiO2 10/21/16 07:15 98 18 Room Air 21 10/21/16 04:00 97.0 98 18 107/72 94 Room Air 10/21/16 00:00 97.2 100 20 106/84 98 Room Air 10/20/16 22:16 120/75 10/20/16 20:00 92 18 Room Air 21 10/20/16 20:00 98.4 93 20 120/75 98 Room Air 10/20/16 16:00 98.1 98 20 122/72 97 Room Air 10/20/16 12:00 97.2 98 20 116/74 97 Room Air Intake and Output 10/20/16 10/21/16 19:00 07:00 Intake Total 118 ml 250 ml Output Total 75 ml 150 ml Balance 43 ml 100 ml Intake Oral 118 ml 250 ml Output Urine Total 75 ml 150 ml # Voids 1 3 # Bowel Movements 1 Laboratory Tests 10/21/16 05:45: White Blood Count 7.5, Red Blood Count 2.74L, Hemoglobin 8.8L, Hematocrit 29.9L , Mean Corpuscular Volume 109H, Mean Corpuscular Hemoglobin 32.2H, Mean Corpuscular Hemoglobin Concent 29.6L, Red Cell Distribution Width 22.8H, Platelet Count 351, Mean Platelet Volume 6.1L, Neutrophils (%) (Auto) 76.4H, Lymphocytes (%) (Auto) 8.7L, Monocytes (%) (Auto) 11.8H, Eosinophils (%) (Auto) 1.7, Basophils (%) (Auto) 1.4, Prothrombin Time 12.8H, Prothromb Time International Ratio 1.3H, Activated Partial Thromboplast Time 31, Sodium Level 132L, Potassium Level 4.7, Chloride Level 90L, Carbon Dioxide Level 18L, Anion Gap 24H, Blood Urea Nitrogen 36H, Creatinine 5.8H, Estimat Glomerular Filtration Rate 12.1, Glucose Level 86, Calcium Level 9.7, Phosphorus Level 5.2H , Total Bilirubin 1.9H, Direct Bilirubin 1.0H, Aspartate Amino Transf (AST/SGOT ) 17, Alanine Aminotransferase (ALT/SGPT) 7, Alkaline Phosphatase 125, C- Reactive Protein, Quantitative 3.8H, Pro-B-Type Natriuretic Peptide 64498C, Total Protein 6.7, Albumin 3.3L, Globulin 3.4, Albumin/Globulin Ratio 0.9L Height (Feet): 5 Height (Inches): 2.00 Weight (Pounds): 162 Objective PHYSICAL EXAMINATION: GENERAL: Alert, awake, and oriented. HEENT: PERRLA. NECK: Range of motion is full in all directions. No tenderness to paracervical muscles. No adenopathy. LUNGS: Decreased breath sounds bilaterally. HEART: S1 and S2, regular. ABDOMEN: Obese. BACK: Range of motion is decreased in flexion and extension with tenderness to paraspinous and trapezius muscles. EXTREMITIES: No cyanosis, no clubbing, edema noted on RUE. NEURO: No changes. Procedure: NM Bone Scan Whole body Impression: T7 uptake corresponding to relatively recent fracture. Negative exam otherwise. No evidence of metastatic neoplasm ARRON EDWARD Oct 21, 2016 08:55
[2016-10-21] MEDS: Lisinopril 2.5mg tab ORAL SCH ×2 (09:00→20:31)
[2016-10-21] MEDS: Nephrovite tab ORAL SCH (09:00)
[2016-10-21] MEDS ORDERED: Propofol 10mg/ml 100ml btl IV ONE (09:00)
[2016-10-21] MEDS: Analgesic Balm 15gm TOPIC SCH ×4 (09:00→20:31)
[2016-10-21] MEDS ORDERED: Hydromorphone 0.5mg/0.5ml inj ONE ×2 (09:18→09:19)
--- NOTE | 2016-10-21 09:35 | Anethesia Preoperative Eval ---
Anesthesia Pre-op PMH/ROS General Date of Evaluation: Oct 21, 2016 Time of Evaluation: 09:32 Anesthesiologist: Cornell ASA Score: ASA 4 Mallampati Score Class I : Soft palate, uvula, fauces, pillars visible Class II: Soft palate, uvula, fauces visible Class III: Soft palate, base of uvula visible Class IV: Only hard plate visible Mallampati Classification: Class II Surgeon: Brittni Diagnosis: Vertebral Fracture Surgical Procedure: Kyphoplasty Anesthesia History: none Family History: no anesthesia problems Allergies: Coded Allergies: No Known Allergies (Unverified , 09/28/16) Medications: see eMAR Past Medical History Cardiovascular: Reports: CAD, HTN, other - EF 32%, Non ischemic stress test Pulmonary: Reports: COPD Gastrointestinal/Genitourinary: Reports: ESRD 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: Denies: CVA, TIA, dementia, depression/anxiety, other Endocrine: Reports: DM HEENT: Denies: [place] (L), [place] (R), cataract (L), cataract (R), glaucoma, other Hematology/Immune: Reports: anemia Musculoskeletal/Integumentary: Reports: DJD Anesthesia Pre-op Phys. Exam Physician Exam Last Vital Signs Date Time Temp Pulse Resp B/P Pulse Ox O2 Delivery O2 Flow Rate FiO2 10/21/16 08:00 97.7 99 19 119/75 98 Room Air 10/21/16 07:15 21 10/13/16 10:15 5.0 Constitutional: NAD Cardiovascular: RRR Airway Exam Mallampati Score: Class II Anesthesia Pre-op A/P Labs Hematology Test 10/21/16 05:45 White Blood Count 7.5 K/UL (4.8-10.8) Red Blood Count 2.74 M/UL (4.70-6.10) L Hemoglobin 8.8 G/DL (14.2-18.0) L Hematocrit 29.9 % (42.0-52.0) L Mean Corpuscular Volume 109 FL (80-99) H Mean Corpuscular Hemoglobin 32.2 PG (27.0-31.0) H Mean Corpuscular Hemoglobin Concent 29.6 G/DL (32.0-36.0) L Red Cell Distribution Width 22.8 % (11.6-14.8) H Platelet Count 351 K/UL (150-450) Mean Platelet Volume 6.1 FL (6.5-10.1) L Neutrophils (%) (Auto) 76.4 % (45.0-75.0) H Lymphocytes (%) (Auto) 8.7 % (20.0-45.0) L Monocytes (%) (Auto) 11.8 % (1.0-10.0) H Eosinophils (%) (Auto) 1.7 % (0.0-3.0) Basophils (%) (Auto) 1.4 % (0.0-2.0) Coagulation Test 10/21/16 05:45 Prothrombin Time 12.8 SEC (9.30-11.50) H Prothromb Time International Ratio 1.3 (0.9-1.1) H Activated Partial Thromboplast Time 31 SEC (23-33) Chemistry Test 10/21/16 05:45 Sodium Level 132 mEQ/L (135-145) L Potassium Level 4.7 mEQ/L (3.4-4.9) Chloride Level 90 mEQ/L (98-107) L Carbon Dioxide Level 18 mEQ/L (20-30) L Anion Gap 24 (5-15) H Blood Urea Nitrogen 36 mg/dL (7-23) H Creatinine 5.8 mg/dL (0.7-1.2) H Estimat Glomerular Filtration Rate 12.1 mL/min (>60) Glucose Level 86 mg/dL (74-106) Calcium Level 9.7 mg/dL (8.6-10.2) Phosphorus Level 5.2 mg/dL (2.5-4.8) H Total Bilirubin 1.9 mg/dL (0.0-1.2) H Direct Bilirubin 1.0 mg/dL (0.1-0.3) H Aspartate Amino Transf (AST/SGOT) 17 U/L (5-40) Alanine Aminotransferase (ALT/SGPT) 7 U/L (3-41) Alkaline Phosphatase 125 U/L (40-129) C-Reactive Protein, Quantitative 3.8 mg/dL (< 0.5) H Pro-B-Type Natriuretic Peptide 78216 pg/mL (0-125) H Total Protein 6.7 g/dL (6.6-8.7) Albumin 3.3 g/dL (3.5-5.2) L Globulin 3.4 g/dL Albumin/Globulin Ratio 0.9 (1.0-2.7) ERIC KIM M.D. Oct 21, 2016 09:34
[2016-10-21] MEDS ORDERED: Lidocaine 1% Plain 30 ml INJ ONE (09:37)
[2016-10-21] MEDS ORDERED: Sodium Bicarbonate 8.4% 50ml Inj ONE (09:38)
[2016-10-21] MEDS ORDERED: Ketorolac 30mg Inj IV PRN (09:45)
[2016-10-21] MEDS ORDERED: Norco 5mg/325mg tab ORAL PRN (09:45)
[2016-10-21] MEDS ORDERED: fentaNYL 100 mcg/2 mL IV PRN (09:45)
--- NOTE | 2016-10-21 11:44 | General Progress Note ---
Assessment/Plan Problem List: (1) Cocaine abuse ICD Codes: F14.10 - Cocaine abuse, uncomplicated SNOMED: 78665629, 724576564 (2) Chest pain ICD Codes: R07.9 - Chest pain, unspecified SNOMED: 95670048, [id number] Qualifiers: Qualified Codes: R07.9 - Chest pain, unspecified Status: progressing Assessment/Plan compression fracture kyphoplasty dc of [place] by dr stubbs Subjective Constitutional: Reports: no symptoms Allergies: Coded Allergies: No Known Allergies (Unverified , 09/28/16) Subjective back pain Objective Last 24 Hour Vital Signs Date Time Temp Pulse Resp B/P Pulse Ox O2 Delivery O2 Flow Rate FiO2 10/21/16 10:22 98 19 4.0 10/21/16 09:59 98 19 4.0 10/21/16 08:00 97.7 99 19 119/75 98 Room Air 10/21/16 07:15 98 18 Room Air 21 10/21/16 04:00 97.0 98 18 107/72 94 Room Air 10/21/16 00:00 97.2 100 20 106/84 98 Room Air 10/20/16 22:16 120/75 10/20/16 20:00 92 18 Room Air 21 10/20/16 20:00 98.4 93 20 120/75 98 Room Air 10/20/16 16:00 98.1 98 20 122/72 97 Room Air 10/20/16 12:00 97.2 98 20 116/74 97 Room Air Intake and Output 10/20/16 10/21/16 19:00 07:00 Intake Total 118 ml 250 ml Output Total 75 ml 150 ml Balance 43 ml 100 ml Intake Oral 118 ml 250 ml Output Urine Total 75 ml 150 ml # Voids 1 3 # Bowel Movements 1 Laboratory Tests 10/21/16 05:45: White Blood Count 7.5, Red Blood Count 2.74L, Hemoglobin 8.8L, Hematocrit 29.9L , Mean Corpuscular Volume 109H, Mean Corpuscular Hemoglobin 32.2H, Mean Corpuscular Hemoglobin Concent 29.6L, Red Cell Distribution Width 22.8H, Platelet Count 351, Mean Platelet Volume 6.1L, Neutrophils (%) (Auto) 76.4H, Lymphocytes (%) (Auto) 8.7L, Monocytes (%) (Auto) 11.8H, Eosinophils (%) (Auto) 1.7, Basophils (%) (Auto) 1.4, Prothrombin Time 12.8H, Prothromb Time International Ratio 1.3H, Activated Partial Thromboplast Time 31, Sodium Level 132L, Potassium Level 4.7, Chloride Level 90L, Carbon Dioxide Level 18L, Anion Gap 24H, Blood Urea Nitrogen 36H, Creatinine 5.8H, Estimat Glomerular Filtration Rate 12.1, Glucose Level 86, Calcium Level 9.7, Phosphorus Level 5.2H , Total Bilirubin 1.9H, Direct Bilirubin 1.0H, Aspartate Amino Transf (AST/SGOT ) 17, Alanine Aminotransferase (ALT/SGPT) 7, Alkaline Phosphatase 125, C- Reactive Protein, Quantitative 3.8H, Pro-B-Type Natriuretic Peptide 29541H, Total Protein 6.7, Albumin 3.3L, Globulin 3.4, Albumin/Globulin Ratio 0.9L Height (Feet): 5 Height (Inches): 2.00 Weight (Pounds): 162 EENT: PERRL/EOMI Neck: supple Cardiovascular: normal rate Respiratory/Chest: lungs clear Liu Elizondo MD Oct 21, 2016 11:44
--- NOTE | 2016-10-21 11:59 | Immediate Post-Op Evaluation ---
Immediate Post-Op Evalulation Immediate Post-Op Evalulation Procedure: Kyphoplasty Date of Evaluation: Oct 21, 2016 Time of Evaluation: 11:57 IV Fluids: 300 Blood Products: 0 Estimated Blood Loss: 5 Urinary Output: 0 Blood Pressure Systolic: 103 Blood Pressure Diastolic: 77 Pulse Rate: 90 Respiratory Rate: 22 O2 Sat by Pulse Oximetry: 98 Temperature (Fahrenheit): 98 Pain Score (1-10): 2 Nausea: No Vomiting: No Complications na Patient Status: awake Drug: Ancef 1 G Given Within 1 Hr of Incision: Yes Time Given: 10:00 ERIC MICHAEL M.D. Oct 21, 2016 11:59
[2016-10-21] MEDS: Hydromorphone 0.5mg/0.5ml inj IVP PRN ×2 (12:09→14:20)
[2016-10-21] MEDS ORDERED: Midazolam 2mg/2ml Inj IVP ONE (12:15)
--- NOTE | 2016-10-21 13:10 | Neurology Progress Note ---
Interim History Interim History Interim History Mr. Hines is still sedated. His cerebration is slow. He just got back from his kyphoplasty. The back pain is minimally worse. The legs feel strong. He denies any numbness in the legs. He denies any new neurologic symptoms. He specifically denies any new weakness, numbness, speech or language problems. Review of Systems Neuro Review of Systems Benign. Objective Physical Exam Last Vital Signs Date Time Temp Pulse Resp B/P Pulse Ox O2 Delivery O2 Flow Rate FiO2 10/21/16 12:46 97.2 76 20 103/56 96 Nasal Cannula 3.0 10/21/16 07:15 21 Laboratory Tests Test 10/21/16 05:45 White Blood Count 7.5 K/UL (4.8-10.8) Red Blood Count 2.74 M/UL (4.70-6.10) L Hemoglobin 8.8 G/DL (14.2-18.0) L Hematocrit 29.9 % (42.0-52.0) L Mean Corpuscular Volume 109 FL (80-99) H Mean Corpuscular Hemoglobin 32.2 PG (27.0-31.0) H Mean Corpuscular Hemoglobin Concent 29.6 G/DL (32.0-36.0) L Red Cell Distribution Width 22.8 % (11.6-14.8) H Platelet Count 351 K/UL (150-450) Mean Platelet Volume 6.1 FL (6.5-10.1) L Neutrophils (%) (Auto) 76.4 % (45.0-75.0) H Lymphocytes (%) (Auto) 8.7 % (20.0-45.0) L Monocytes (%) (Auto) 11.8 % (1.0-10.0) H Eosinophils (%) (Auto) 1.7 % (0.0-3.0) Basophils (%) (Auto) 1.4 % (0.0-2.0) Prothrombin Time 12.8 SEC (9.30-11.50) H Prothromb Time International Ratio 1.3 (0.9-1.1) H Activated Partial Thromboplast Time 31 SEC (23-33) Sodium Level 132 mEQ/L (135-145) L Potassium Level 4.7 mEQ/L (3.4-4.9) Chloride Level 90 mEQ/L (98-107) L Carbon Dioxide Level 18 mEQ/L (20-30) L Anion Gap 24 (5-15) H Blood Urea Nitrogen 36 mg/dL (7-23) H Creatinine 5.8 mg/dL (0.7-1.2) H Estimat Glomerular Filtration Rate 12.1 mL/min (>60) Glucose Level 86 mg/dL (74-106) Calcium Level 9.7 mg/dL (8.6-10.2) Phosphorus Level 5.2 mg/dL (2.5-4.8) H Total Bilirubin 1.9 mg/dL (0.0-1.2) H Direct Bilirubin 1.0 mg/dL (0.1-0.3) H Aspartate Amino Transf (AST/SGOT) 17 U/L (5-40) Alanine Aminotransferase (ALT/SGPT) 7 U/L (3-41) Alkaline Phosphatase 125 U/L (40-129) C-Reactive Protein, Quantitative 3.8 mg/dL (< 0.5) H Pro-B-Type Natriuretic Peptide 78181 pg/mL (0-125) H Total Protein 6.7 g/dL (6.6-8.7) Albumin 3.3 g/dL (3.5-5.2) L Globulin 3.4 g/dL Albumin/Globulin Ratio 0.9 (1.0-2.7) L Neurologic Exam Objective PHYSICAL EXAMINATION: GENERAL: He is a well-developed, well-nourished, pleasant black gentleman, sitting at the edge of his bed, in no acute distress. HEAD: Normocephalic and atraumatic. EENT: Examination benign NECK: No neck rigidity was observed. NEUROLOGICAL EXAMINATION: MENTAL STATUS EXAMINATION: He was alert and awake. He was oriented to self and [facility] only. He was unable to cooperate for further mental staus tests. SPEECH: He had a mild dysarthria. LANGUAGE: Could not be tested. CRANIAL NERVE EXAMINATION: II: The visual glaser were intact in the right eye. In the left eye vision was poor . III, IV & : External ocular movements are full in the right eye and restricted in the left eye. V: He had normal facial sensations and the temporales, masseters, and pterygoids function normally. VII: He had normal facial expressions and no facial asymmetry. VIII: He was able to hear well bilaterally and had no nystagmus. IX: The palate moved symmetrically on phonation. X: He had no hoarseness of voice. XI: The sternocleidomastoids and trapezii functioned normally. XII: The tongue was in the midline without any fasciculations or atrophy. MOTOR SYSTEM: The tone was normal in all four extremities. Examination of muscle mass revealed no definite focal wasting however it should be noticed that his right upper extremity was significantly swollen. Examination of power revealed ~grade 5/5 power in all muscle groups tested. The effort was suboptimal in all muscle groups. SENSORY EXAMINATION: He had intact sensations to light touch. REFLEXES: 0 at the biceps, triceps, brachioradialis, knees, and ankles. The plantar responses were flexor bilaterally. COORDINATION, STANCE & GAIT: Could not be tested. Impression/Recommendations Diagnostic Impression 1. Mr. Demetrius Hines is a 60-year-old, right-handed, black gentleman, with past history of hypertension, diabetes mellitus, end-stage renal disease, and polysubstance abuse with tetrahydrocannabinol and cocaine who was hospitalized at another hospital prior to his hospitalization at [facility] on 09/29/2016. When he came in he did have some mid back pain which was quite severe for the first few days, but has been much better in the last few days. He was evaluated for this pain and was found to have a T7 compression fracture. 2. He just came back from his kyphoplasty. 3. The back pain is minimally worse and he is still sedated from the anesthesia. 4. On neurological examination, at this time, he does have global cerebral dysfunction. He also has point tenderness over his mid thoracic spine predominantly in the T6 and T7 region. In addition, the deep tendon reflexes are globally absent. 5. An MRI scan of thoracic spine revealed an acute versus subacute T7 vertebral body compression fracture with reduction of the vertebral height by approximately 40%, a T10 vertebral body abnormal high T2 signal area is also seen which most probably represents either a hemangioma or a neoplasm. 6. The patient's history and neurological examination are most compatible with a subacute T7 compression fracture which is most probably traumatic in nature. He does not demonstrate any signs of spinal cord dysfunction at this point in time. He is now S/P a kyphoplasty. Recommendations 1. Continue present management. 2. Mobilize rapidly. Patricia Barron M.D., M.S.P.H. PATRICIA BARRON Oct 21, 2016 13:10
--- NOTE | 2016-10-21 14:31 | General Progress Note ---
Assessment/Plan Status: stable Assessment/Plan Status: (1) ESRD (end stage renal disease) on dialysis (2) Chest pain (3) Cocaine abuse (4) Anemia in chronic kidney disease (5) ? DVT right UE (6) Cardiomyopathy: Global left ventricular hypokinesis. Worse septal apper akinetic s. Left ventricular ejection fraction estimated to be 30-35 %. MR: Positive for acute or subacute T7 vertebral body compression fracture. Plan: had dialysis access placed / HD 10/19- next 10/21 On marcie inhibitors- per consultants ? DC planning ?? Kyphoplasty? Subjective ROS Limited/Unobtainable: No Constitutional: Reports: malaise Allergies: Coded Allergies: No Known Allergies (Unverified , 09/28/16) Objective Last 24 Hour Vital Signs Date Time Temp Pulse Resp B/P Pulse Ox O2 Delivery O2 Flow Rate FiO2 10/21/16 14:00 97.8 78 18 111/81 98 Nasal Cannula 3.0 10/21/16 13:30 97.8 90 18 106/69 97 Nasal Cannula 2.0 10/21/16 12:55 97.0 10/21/16 12:46 97.2 76 20 103/56 96 Nasal Cannula 3.0 10/21/16 12:40 78 19 111/69 96 Nasal Cannula 3.0 10/21/16 12:30 75 14 110/66 97 Nasal Cannula 3.0 10/21/16 12:20 78 16 104/65 98 Nasal Cannula 3.0 10/21/16 12:10 86 18 106/71 98 Nasal Cannula 3.0 10/21/16 12:05 95 19 105/61 100 Nasal Cannula 3.0 10/21/16 12:00 92 14 105/61 98 Nasal Cannula 3.0 10/21/16 11:59 90 22 98 10/21/16 11:55 97.6 88 14 103/77 99 Nasal Cannula 3.0 10/21/16 10:22 98 19 4.0 10/21/16 09:59 98 19 4.0 10/21/16 08:00 97.7 99 19 119/75 98 Room Air 10/21/16 07:15 98 18 Room Air 21 10/21/16 04:00 97.0 98 18 107/72 94 Room Air 10/21/16 00:00 97.2 100 20 106/84 98 Room Air 10/20/16 22:16 120/75 10/20/16 20:00 92 18 Room Air 21 10/20/16 20:00 98.4 93 20 120/75 98 Room Air 10/20/16 16:00 98.1 98 20 122/72 97 Room Air Intake and Output 10/20/16 10/21/16 19:00 07:00 Intake Total 118 ml 250 ml Output Total 75 ml 150 ml Balance 43 ml 100 ml Intake Oral 118 ml 250 ml Output Urine Total 75 ml 150 ml # Voids 1 3 # Bowel Movements 1 Laboratory Tests 10/21/16 05:45: White Blood Count 7.5, Red Blood Count 2.74L, Hemoglobin 8.8L, Hematocrit 29.9L , Mean Corpuscular Volume 109H, Mean Corpuscular Hemoglobin 32.2H, Mean Corpuscular Hemoglobin Concent 29.6L, Red Cell Distribution Width 22.8H, Platelet Count 351, Mean Platelet Volume 6.1L, Neutrophils (%) (Auto) 76.4H, Lymphocytes (%) (Auto) 8.7L, Monocytes (%) (Auto) 11.8H, Eosinophils (%) (Auto) 1.7, Basophils (%) (Auto) 1.4, Prothrombin Time 12.8H, Prothromb Time International Ratio 1.3H, Activated Partial Thromboplast Time 31, Sodium Level 132L, Potassium Level 4.7, Chloride Level 90L, Carbon Dioxide Level 18L, Anion Gap 24H, Blood Urea Nitrogen 36H, Creatinine 5.8H, Estimat Glomerular Filtration Rate 12.1, Glucose Level 86, Calcium Level 9.7, Phosphorus Level 5.2H , Total Bilirubin 1.9H, Direct Bilirubin 1.0H, Aspartate Amino Transf (AST/SGOT ) 17, Alanine Aminotransferase (ALT/SGPT) 7, Alkaline Phosphatase 125, C- Reactive Protein, Quantitative 3.8H, Pro-B-Type Natriuretic Peptide 42175Z, Total Protein 6.7, Albumin 3.3L, Globulin 3.4, Albumin/Globulin Ratio 0.9L Height (Feet): 5 Height (Inches): 2.00 Weight (Pounds): 162 General Appearance: no apparent distress Objective no change in PE KALEY RIOS Oct 21, 2016 14:31
--- NOTE | 2016-10-21 15:08 | GI Progress Note ---
Assessment/Plan Problems: (1) GIB (gastrointestinal bleeding) ICD Codes: K92.2 - Gastrointestinal hemorrhage, unspecified SNOMED: 01081804 (2) Cocaine abuse ICD Codes: F14.10 - Cocaine abuse, uncomplicated SNOMED: 70157697, 577374162 (3) Anemia in chronic kidney disease ICD Codes: N18.9 - Chronic kidney disease, unspecified; D63.1 - Anemia in chronic kidney disease SNOMED: 263427186, 223767543 (4) Chest pain ICD Codes: R07.9 - Chest pain, unspecified SNOMED: 22437022, 241792372 Qualifiers: Qualified Codes: R07.9 - Chest pain, unspecified Status: stable, unchanged Status Narrative Discussed with Dr. Bal. Assessment/Plan SUMMARY OF FINDINGS: 1. Significant diverticulosis. 2. Two polyps removed, see above for details. 3. Internal hemorrhoids. RECOMMENDATIONS: ok for DC per GI standpoint cardiac diet monitor H&H, transfuse prn PPI fu biopsy for HP >> negative repeat colon x 3 years fu labs fu with PCP Subjective Subjective denies any GI symptoms. back pain Objective Last 24 Hour Vital Signs Date Time Temp Pulse Resp B/P Pulse Ox O2 Delivery O2 Flow Rate FiO2 10/21/16 14:00 97.8 78 18 111/81 98 Nasal Cannula 3.0 10/21/16 13:30 97.8 90 18 106/69 97 Nasal Cannula 2.0 10/21/16 12:55 97.0 10/21/16 12:46 97.2 76 20 103/56 96 Nasal Cannula 3.0 10/21/16 12:40 78 19 111/69 96 Nasal Cannula 3.0 10/21/16 12:30 75 14 110/66 97 Nasal Cannula 3.0 10/21/16 12:20 78 16 104/65 98 Nasal Cannula 3.0 10/21/16 12:10 86 18 106/71 98 Nasal Cannula 3.0 10/21/16 12:05 95 19 105/61 100 Nasal Cannula 3.0 10/21/16 12:00 92 14 105/61 98 Nasal Cannula 3.0 10/21/16 11:59 90 22 98 10/21/16 11:55 97.6 88 14 103/77 99 Nasal Cannula 3.0 10/21/16 10:22 98 19 4.0 10/21/16 09:59 98 19 4.0 10/21/16 08:00 97.7 99 19 119/75 98 Room Air 10/21/16 07:15 98 18 Room Air 21 10/21/16 04:00 97.0 98 18 107/72 94 Room Air 10/21/16 00:00 97.2 100 20 106/84 98 Room Air 10/20/16 22:16 120/75 10/20/16 20:00 92 18 Room Air 21 10/20/16 20:00 98.4 93 20 120/75 98 Room Air 10/20/16 16:00 98.1 98 20 122/72 97 Room Air Intake and Output 10/20/16 10/21/16 19:00 07:00 Intake Total 118 ml 250 ml Output Total 75 ml 150 ml Balance 43 ml 100 ml Intake Oral 118 ml 250 ml Output Urine Total 75 ml 150 ml # Voids 1 3 # Bowel Movements 1 Laboratory Tests Test 10/21/16 05:45 White Blood Count 7.5 K/UL (4.8-10.8) Red Blood Count 2.74 M/UL (4.70-6.10) L Hemoglobin 8.8 G/DL (14.2-18.0) L Hematocrit 29.9 % (42.0-52.0) L Mean Corpuscular Volume 109 FL (80-99) H Mean Corpuscular Hemoglobin 32.2 PG (27.0-31.0) H Mean Corpuscular Hemoglobin Concent 29.6 G/DL (32.0-36.0) L Red Cell Distribution Width 22.8 % (11.6-14.8) H Platelet Count 351 K/UL (150-450) Mean Platelet Volume 6.1 FL (6.5-10.1) L Neutrophils (%) (Auto) 76.4 % (45.0-75.0) H Lymphocytes (%) (Auto) 8.7 % (20.0-45.0) L Monocytes (%) (Auto) 11.8 % (1.0-10.0) H Eosinophils (%) (Auto) 1.7 % (0.0-3.0) Basophils (%) (Auto) 1.4 % (0.0-2.0) Prothrombin Time 12.8 SEC (9.30-11.50) H Prothromb Time International Ratio 1.3 (0.9-1.1) H Activated Partial Thromboplast Time 31 SEC (23-33) Sodium Level 132 mEQ/L (135-145) L Potassium Level 4.7 mEQ/L (3.4-4.9) Chloride Level 90 mEQ/L (98-107) L Carbon Dioxide Level 18 mEQ/L (20-30) L Anion Gap 24 (5-15) H Blood Urea Nitrogen 36 mg/dL (7-23) H Creatinine 5.8 mg/dL (0.7-1.2) H Estimat Glomerular Filtration Rate 12.1 mL/min (>60) Glucose Level 86 mg/dL (74-106) Calcium Level 9.7 mg/dL (8.6-10.2) Phosphorus Level 5.2 mg/dL (2.5-4.8) H Total Bilirubin 1.9 mg/dL (0.0-1.2) H Direct Bilirubin 1.0 mg/dL (0.1-0.3) H Aspartate Amino Transf (AST/SGOT) 17 U/L (5-40) Alanine Aminotransferase (ALT/SGPT) 7 U/L (3-41) Alkaline Phosphatase 125 U/L (40-129) C-Reactive Protein, Quantitative 3.8 mg/dL (< 0.5) H Pro-B-Type Natriuretic Peptide 70218 pg/mL (0-125) H Total Protein 6.7 g/dL (6.6-8.7) Albumin 3.3 g/dL (3.5-5.2) L Globulin 3.4 g/dL Albumin/Globulin Ratio 0.9 (1.0-2.7) L Height (Feet): 5 Height (Inches): 2.00 Weight (Pounds): 162 General Appearance: no apparent distress, alert Cardiovascular: normal rate Respiratory/Chest: other - 2LNC Abdominal Exam: normal bowel sounds, non tender, soft Extremities: normal range of motion Sole Lucio N.P. Oct 21, 2016 15:08
--- NOTE | 2016-10-21 15:41 | Infectious Diseases Prog Note ---
Assessment/Plan Problems: (1) Colonization with VRE (vancomycin-resistant enterococcus) Assessment & Plan: keep in contact isolation (2) ESRD (end stage renal disease) on dialysis Assessment & Plan: continue HD as per renal. (3) Cocaine abuse Assessment & Plan: recommend counseling and rehab (4) Chest pain Assessment & Plan: had stress test , cardiology is following (5) Anemia in chronic kidney disease Assessment & Plan: stable, monitor H/H transfuse as needed (6) GIB (gastrointestinal bleeding) Assessment & Plan: due to diverticulosis and polyps, S/P EGD/colonoscopy , monitor H/H and transfuse blood as needed Subjective Allergies: Coded Allergies: No Known Allergies (Unverified , 09/28/16) All Systems: reviewed and negative except above Subjective he was up in bed, doing well , denied any fever or chills, no diarrhea Objective Vital Signs Last 24 Hour Vital Signs Date Time Temp Pulse Resp B/P Pulse Ox O2 Delivery O2 Flow Rate FiO2 10/21/16 14:00 97.8 78 18 111/81 98 Nasal Cannula 3.0 10/21/16 13:30 97.8 90 18 106/69 97 Nasal Cannula 2.0 10/21/16 12:55 97.0 10/21/16 12:46 97.2 76 20 103/56 96 Nasal Cannula 3.0 10/21/16 12:40 78 19 111/69 96 Nasal Cannula 3.0 10/21/16 12:30 75 14 110/66 97 Nasal Cannula 3.0 10/21/16 12:20 78 16 104/65 98 Nasal Cannula 3.0 10/21/16 12:10 86 18 106/71 98 Nasal Cannula 3.0 10/21/16 12:05 95 19 105/61 100 Nasal Cannula 3.0 10/21/16 12:00 92 14 105/61 98 Nasal Cannula 3.0 10/21/16 11:59 90 22 98 10/21/16 11:55 97.6 88 14 103/77 99 Nasal Cannula 3.0 10/21/16 10:22 98 19 4.0 10/21/16 09:59 98 19 4.0 10/21/16 08:00 97.7 99 19 119/75 98 Room Air 10/21/16 07:15 98 18 Room Air 21 10/21/16 04:00 97.0 98 18 107/72 94 Room Air 10/21/16 00:00 97.2 100 20 106/84 98 Room Air 10/20/16 22:16 120/75 10/20/16 20:00 92 18 Room Air 21 10/20/16 20:00 98.4 93 20 120/75 98 Room Air 10/20/16 16:00 98.1 98 20 122/72 97 Room Air Height (Feet): 5 Height (Inches): 2.00 Weight (Pounds): 162 General Appearance: WD/WN, no acute distress HEENT: normocephalic, atraumatic, anicteric, mucous membranes moist, PERRL Respiratory/Chest: chest wall non-tender, normal breath sounds, no respiratory distress, no accessory muscle use Cardiovascular: normal peripheral pulses, normal rate, regular rhythm, no gallop/murmur, no JVD Abdomen: normal bowel sounds, soft, non tender, no organomegaly, non distended , no mass, no scars Extremities: no cyanosis, no clubbing Skin: no rash, no lesions Laboratory Tests Test 10/21/16 05:45 White Blood Count 7.5 K/UL (4.8-10.8) Red Blood Count 2.74 M/UL (4.70-6.10) L Hemoglobin 8.8 G/DL (14.2-18.0) L Hematocrit 29.9 % (42.0-52.0) L Mean Corpuscular Volume 109 FL (80-99) H Mean Corpuscular Hemoglobin 32.2 PG (27.0-31.0) H Mean Corpuscular Hemoglobin Concent 29.6 G/DL (32.0-36.0) L Red Cell Distribution Width 22.8 % (11.6-14.8) H Platelet Count 351 K/UL (150-450) Mean Platelet Volume 6.1 FL (6.5-10.1) L Neutrophils (%) (Auto) 76.4 % (45.0-75.0) H Lymphocytes (%) (Auto) 8.7 % (20.0-45.0) L Monocytes (%) (Auto) 11.8 % (1.0-10.0) H Eosinophils (%) (Auto) 1.7 % (0.0-3.0) Basophils (%) (Auto) 1.4 % (0.0-2.0) Prothrombin Time 12.8 SEC (9.30-11.50) H Prothromb Time International Ratio 1.3 (0.9-1.1) H Activated Partial Thromboplast Time 31 SEC (23-33) Sodium Level 132 mEQ/L (135-145) L Potassium Level 4.7 mEQ/L (3.4-4.9) Chloride Level 90 mEQ/L (98-107) L Carbon Dioxide Level 18 mEQ/L (20-30) L Anion Gap 24 (5-15) H Blood Urea Nitrogen 36 mg/dL (7-23) H Creatinine 5.8 mg/dL (0.7-1.2) H Estimat Glomerular Filtration Rate 12.1 mL/min (>60) Glucose Level 86 mg/dL (74-106) Calcium Level 9.7 mg/dL (8.6-10.2) Phosphorus Level 5.2 mg/dL (2.5-4.8) H Total Bilirubin 1.9 mg/dL (0.0-1.2) H Direct Bilirubin 1.0 mg/dL (0.1-0.3) H Aspartate Amino Transf (AST/SGOT) 17 U/L (5-40) Alanine Aminotransferase (ALT/SGPT) 7 U/L (3-41) Alkaline Phosphatase 125 U/L (40-129) C-Reactive Protein, Quantitative 3.8 mg/dL (< 0.5) H Pro-B-Type Natriuretic Peptide 61119 pg/mL (0-125) H Total Protein 6.7 g/dL (6.6-8.7) Albumin 3.3 g/dL (3.5-5.2) L Globulin 3.4 g/dL Albumin/Globulin Ratio 0.9 (1.0-2.7) L Current Medications Medications (Trade) Dose Ordered Sig/Lillian Route PRN Reason Start Time Stop Time Status Last Admin Dose Admin Acetaminophen (Tylenol) 650 mg Q4H PRN ORAL Fever 10/06/16 15:30 11/05/16 15:29 10/10/16 06:37 Acetaminophen/ Hydrocodone Bitart ([place] 5/325) 1 tab Q1H PRN ORAL Mild Pain (Pain Scale 1-3) 10/21/16 09:45 10/21/16 17:00 Dextrose (Dextrose 50%) STAT PRN IV Hypoglycemia 10/06/16 19:30 11/05/16 19:29 Epoetin Joseph (Procrit (for ESRD on dialysis)) 5,000 units TUE-TUE-TUE SUBQ 10/06/16 21:00 11/05/16 20:59 10/20/16 22:16 Fentanyl Citrate (Sublimaze 100 mcg/2 mL) 25 mcg Q10M PRN IV Moderate Pain (Pain Scale 4-6) 10/21/16 09:45 10/21/16 17:00 Hydromorphone HCl (Dilaudid) 0.5 mg Q15M PRN IVP Severe Pain (Pain Scale 7-10) 10/21/16 09:45 10/21/16 17:00 10/21/16 12:09 Insulin Aspart (NovoLOG) BEFORE MEALS AND HS SUBQ 10/06/16 16:30 11/05/16 16:29 Ketorolac Tromethamine (Toradol 30mg) 15 mg Q1H PRN IV Moderate Breakthru Pain (5-7) 10/21/16 09:45 10/21/16 17:00 Lidocaine (Lidoderm 5% PATCH) 1 patch DAILY TDERMAL 10/07/16 09:00 11/06/16 08:59 10/20/16 08:19 Lisinopril (Zestril) 2.5 mg Q12HR ORAL 10/06/16 21:00 11/05/16 20:59 10/20/16 22:16 Menthol/Methyl Salicylate (Bengay) 1 applic FOUR TIMES A DAY TOPIC 10/10/16 13:00 11/09/16 12:59 10/20/16 18:22 Ondansetron HCl (Zofran) 4 mg Q1H PRN IVP Nausea & Vomiting 10/21/16 09:45 10/21/16 17:00 Ondansetron HCl (Zofran) 4 mg Q6H PRN IVP Nausea & Vomiting 10/06/16 13:30 11/05/16 13:29 Pantoprazole (Protonix) 40 mg ACBREAKFAST ORAL 10/09/16 06:30 11/06/16 08:59 10/20/16 06:00 Polyethylene Glycol (Miralax) 17 gm DAILYPRN PRN ORAL Constipation 10/06/16 19:30 11/05/16 19:29 10/12/16 21:13 Vitamin B Complex/ Vit C/Folic Acid (Nephrovite) 1 tab DAILY ORAL 10/07/16 09:00 11/06/16 08:59 10/20/16 08:18 Ivania Bhardwaj M.D. Oct 21, 2016 15:41
--- NOTE | 2016-10-21 17:29 | Cardiac Electrophysiology PN ---
Assessment/Plan Status Narrative Moderate left ventricular enlargement. Global left ventricular hypokinesis. Worse septal apper akinetic s. Left ventricular ejection fraction estimated to be 30-35 %. No evidence of left ventricular hypertrophy. No evidence of pericardial fat or effusion. Severe right atrial enlargement by 2D. Mild right atrial enlargement by 2D. Focal aortic valve sclerosis with adequate cusp excursion Mildly thickened mitral valve leaflets with normal excursion. Mitral annulus and aortic root calcification. Pulmonic valve is well visualized. Normal tricuspid valve structure. IVC dilated at 2.7cm no physiologic collapse with respiration.RA pressure of 20mmHg. Assessment/Plan 1. Chest pain due to cocaine vasospasm. Ruled out for myocardial infarction. Nuclear stress test showed no significant ischemia. Avoid beta-david for cocaine use. 2. Severe Cardiomyopathy with EF 30-35%. Off Beta david for cocaine use. On Lisinopril 2.5 bid and dialysis. 3. History of hypertension. On Lisinopril 2.5 bid. 4. End-stage renal disease, on hemodialysis.Had dialysis today 5. Substance abuse with cocaine. 6. Anemia due to GI bleed. Stool OB positive. S/P EGD and colonoscopy that showed significant diverticulosis, Two polyps removed and Internal hemorrhoid per Dr Bal 7. Diabetes. 8. Acute versus subacute T7 vertebral body compression fracture with reduction of the vertebral height by approximately 40%, S/P Kyphoplasty today. DW RN Subjective Subjective Had kyphoplasty. No chest pain or SOB. Getting dialysis. RN at bedside. Objective Last 24 Hour Vital Signs Date Time Temp Pulse Resp B/P Pulse Ox O2 Delivery O2 Flow Rate FiO2 10/21/16 14:55 Nasal Cannula 3.0 21 10/21/16 14:00 97.8 78 18 111/81 98 Nasal Cannula 3.0 10/21/16 13:30 97.8 90 18 106/69 97 Nasal Cannula 2.0 10/21/16 12:55 97.0 10/21/16 12:46 97.2 76 20 103/56 96 Nasal Cannula 3.0 10/21/16 12:40 78 19 111/69 96 Nasal Cannula 3.0 10/21/16 12:30 75 14 110/66 97 Nasal Cannula 3.0 10/21/16 12:20 78 16 104/65 98 Nasal Cannula 3.0 10/21/16 12:10 86 18 106/71 98 Nasal Cannula 3.0 10/21/16 12:05 95 19 105/61 100 Nasal Cannula 3.0 10/21/16 12:00 92 14 105/61 98 Nasal Cannula 3.0 10/21/16 11:59 90 22 98 10/21/16 11:55 97.6 88 14 103/77 99 Nasal Cannula 3.0 10/21/16 10:22 98 19 4.0 10/21/16 09:59 98 19 4.0 10/21/16 08:00 97.7 99 19 119/75 98 Room Air 10/21/16 07:15 98 18 Room Air 21 10/21/16 04:00 97.0 98 18 107/72 94 Room Air 10/21/16 00:00 97.2 100 20 106/84 98 Room Air 10/20/16 22:16 120/75 10/20/16 20:00 92 18 Room Air 21 10/20/16 20:00 98.4 93 20 120/75 98 Room Air Intake and Output 10/20/16 10/21/16 18:59 06:59 Intake Total 118 ml 250 ml Output Total 75 ml 150 ml Balance 43 ml 100 ml Intake Oral 118 ml 250 ml Output Urine Total 75 ml 150 ml # Voids 1 3 # Bowel Movements 1 Laboratory Tests Test 10/21/16 05:45 White Blood Count 7.5 K/UL (4.8-10.8) Red Blood Count 2.74 M/UL (4.70-6.10) L Hemoglobin 8.8 G/DL (14.2-18.0) L Hematocrit 29.9 % (42.0-52.0) L Mean Corpuscular Volume 109 FL (80-99) H Mean Corpuscular Hemoglobin 32.2 PG (27.0-31.0) H Mean Corpuscular Hemoglobin Concent 29.6 G/DL (32.0-36.0) L Red Cell Distribution Width 22.8 % (11.6-14.8) H Platelet Count 351 K/UL (150-450) Mean Platelet Volume 6.1 FL (6.5-10.1) L Neutrophils (%) (Auto) 76.4 % (45.0-75.0) H Lymphocytes (%) (Auto) 8.7 % (20.0-45.0) L Monocytes (%) (Auto) 11.8 % (1.0-10.0) H Eosinophils (%) (Auto) 1.7 % (0.0-3.0) Basophils (%) (Auto) 1.4 % (0.0-2.0) Prothrombin Time 12.8 SEC (9.30-11.50) H Prothromb Time International Ratio 1.3 (0.9-1.1) H Activated Partial Thromboplast Time 31 SEC (23-33) Sodium Level 132 mEQ/L (135-145) L Potassium Level 4.7 mEQ/L (3.4-4.9) Chloride Level 90 mEQ/L (98-107) L Carbon Dioxide Level 18 mEQ/L (20-30) L Anion Gap 24 (5-15) H Blood Urea Nitrogen 36 mg/dL (7-23) H Creatinine 5.8 mg/dL (0.7-1.2) H Estimat Glomerular Filtration Rate 12.1 mL/min (>60) Glucose Level 86 mg/dL (74-106) Calcium Level 9.7 mg/dL (8.6-10.2) Phosphorus Level 5.2 mg/dL (2.5-4.8) H Total Bilirubin 1.9 mg/dL (0.0-1.2) H Direct Bilirubin 1.0 mg/dL (0.1-0.3) H Aspartate Amino Transf (AST/SGOT) 17 U/L (5-40) Alanine Aminotransferase (ALT/SGPT) 7 U/L (3-41) Alkaline Phosphatase 125 U/L (40-129) C-Reactive Protein, Quantitative 3.8 mg/dL (< 0.5) H Pro-B-Type Natriuretic Peptide 06245 pg/mL (0-125) H Total Protein 6.7 g/dL (6.6-8.7) Albumin 3.3 g/dL (3.5-5.2) L Globulin 3.4 g/dL Albumin/Globulin Ratio 0.9 (1.0-2.7) L Objective HEAD AND NECK: No jugular venous distention or carotid bruits. LUNGS: Clear. CARDIOVASCULAR: Regular S1 and S2 with no gallop or murmur. ABDOMEN: Soft and nontender. EXTREMITIES: No pitting edema. Dialysis access in the right chest. DILIA GUERRERO Oct 21, 2016 17:29
--- NOTE | 2016-10-21 17:38 | General Progress Note ---
Assessment/Plan Assessment/Plan ASSESSMENT: 1. Anemia secondary to end-stage renal disease. Ferritin is 711. Is on epogen and HD 2. Acute drop in hgb, consider GI bleed, has been cleared by cards, pending colo in future 3. Thrombocytopenia potentially secondary to underlying infection. hep and hiv - , has improved 4. Coagulopathy INR is 1.2, improved 5. Diabetes mellitus. 6. End-stage renal disease on hemodialysis. 7. Cocaine use history. RECOMMENDATIONS: 1. Monitor counts. 2. Transfuse if hemoglobin < 7 3. Continue epogen 4. Followup GI recs - is now s/p colo 5. Followup on Nephrology, Pulmonary, GI, Cards recs 6. Transfuse if plts <20k 7. DVT prophylaxis with scds 8. GI prophylaxis ppi 9. Pain control. 10. staff. Thank you, Hugh Lopez MD Subjective Constitutional: Reports: no symptoms HEENT: Reports: no symptoms Cardiovascular: Reports: no symptoms Respiratory: Reports: no symptoms Gastrointestinal/Abdominal: Reports: poor appetite Genitourinary: Reports: no symptoms 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: Reports: no symptoms Endocrine: Reports: no symptoms Hematologic/Lymphatic: Reports: anemia Allergies: Coded Allergies: No Known Allergies (Unverified , 09/28/16) Subjective awake, is not bleeding, pain improved Objective Last 24 Hour Vital Signs Date Time Temp Pulse Resp B/P Pulse Ox O2 Delivery O2 Flow Rate FiO2 10/21/16 14:55 Nasal Cannula 3.0 21 10/21/16 14:00 97.8 78 18 111/81 98 Nasal Cannula 3.0 10/21/16 13:30 97.8 90 18 106/69 97 Nasal Cannula 2.0 10/21/16 12:55 97.0 10/21/16 12:46 97.2 76 20 103/56 96 Nasal Cannula 3.0 10/21/16 12:40 78 19 111/69 96 Nasal Cannula 3.0 10/21/16 12:30 75 14 110/66 97 Nasal Cannula 3.0 10/21/16 12:20 78 16 104/65 98 Nasal Cannula 3.0 10/21/16 12:10 86 18 106/71 98 Nasal Cannula 3.0 10/21/16 12:05 95 19 105/61 100 Nasal Cannula 3.0 10/21/16 12:00 92 14 105/61 98 Nasal Cannula 3.0 10/21/16 11:59 90 22 98 10/21/16 11:55 97.6 88 14 103/77 99 Nasal Cannula 3.0 10/21/16 10:22 98 19 4.0 10/21/16 09:59 98 19 4.0 10/21/16 08:00 97.7 99 19 119/75 98 Room Air 10/21/16 07:15 98 18 Room Air 21 10/21/16 04:00 97.0 98 18 107/72 94 Room Air 10/21/16 00:00 97.2 100 20 106/84 98 Room Air 10/20/16 22:16 120/75 10/20/16 20:00 92 18 Room Air 21 10/20/16 20:00 98.4 93 20 120/75 98 Room Air Intake and Output 10/20/16 10/21/16 19:00 07:00 Intake Total 118 ml 250 ml Output Total 75 ml 150 ml Balance 43 ml 100 ml Intake Oral 118 ml 250 ml Output Urine Total 75 ml 150 ml # Voids 1 3 # Bowel Movements 1 Laboratory Tests 10/21/16 05:45: White Blood Count 7.5, Red Blood Count 2.74L, Hemoglobin 8.8L, Hematocrit 29.9L , Mean Corpuscular Volume 109H, Mean Corpuscular Hemoglobin 32.2H, Mean Corpuscular Hemoglobin Concent 29.6L, Red Cell Distribution Width 22.8H, Platelet Count 351, Mean Platelet Volume 6.1L, Neutrophils (%) (Auto) 76.4H, Lymphocytes (%) (Auto) 8.7L, Monocytes (%) (Auto) 11.8H, Eosinophils (%) (Auto) 1.7, Basophils (%) (Auto) 1.4, Prothrombin Time 12.8H, Prothromb Time International Ratio 1.3H, Activated Partial Thromboplast Time 31, Sodium Level 132L, Potassium Level 4.7, Chloride Level 90L, Carbon Dioxide Level 18L, Anion Gap 24H, Blood Urea Nitrogen 36H, Creatinine 5.8H, Estimat Glomerular Filtration Rate 12.1, Glucose Level 86, Calcium Level 9.7, Phosphorus Level 5.2H , Total Bilirubin 1.9H, Direct Bilirubin 1.0H, Aspartate Amino Transf (AST/SGOT ) 17, Alanine Aminotransferase (ALT/SGPT) 7, Alkaline Phosphatase 125, C- Reactive Protein, Quantitative 3.8H, Pro-B-Type Natriuretic Peptide 31294U, Total Protein 6.7, Albumin 3.3L, Globulin 3.4, Albumin/Globulin Ratio 0.9L Height (Feet): 5 Height (Inches): 2.00 Weight (Pounds): 162 EENT: normal ENT inspection Neck: supple Cardiovascular: regular rhythm Respiratory/Chest: lungs clear Abdomen: soft Extremities: normal range of motion Edema: 1+ Leg (L), 1+ Leg (R) Edema: mild edema Neurologic: alert Skin: warm/dry Hugh Lopez Oct 21, 2016 17:38
--- NOTE | 2016-10-21 19:16 | Pulmonology Progress Note ---
Assessment/Plan Problems: (1) Chest pain Assessment & Plan: stress study was negative (2) Acute respiratory failure Assessment & Plan: improved (3) Anemia in chronic kidney disease (4) ESRD (end stage renal disease) on dialysis (5) Fluid overload (6) Cocaine abuse (7) Back pain Assessment/Plan Hd access fell off, Needs a new access cardiac evaluation appreciated HD as needed med/surg if ok with Cardio Subjective Allergies: Coded Allergies: No Known Allergies (Unverified , 09/28/16) Objective Last 24 Hour Vital Signs Date Time Temp Pulse Resp B/P Pulse Ox O2 Delivery O2 Flow Rate FiO2 10/21/16 18:16 Nasal Cannula 3.0 21 10/21/16 14:55 Nasal Cannula 3.0 21 10/21/16 14:00 97.8 78 18 111/81 98 Nasal Cannula 3.0 10/21/16 13:30 97.8 90 18 106/69 97 Nasal Cannula 2.0 10/21/16 12:55 97.0 10/21/16 12:46 97.2 76 20 103/56 96 Nasal Cannula 3.0 10/21/16 12:40 78 19 111/69 96 Nasal Cannula 3.0 10/21/16 12:30 75 14 110/66 97 Nasal Cannula 3.0 10/21/16 12:20 78 16 104/65 98 Nasal Cannula 3.0 10/21/16 12:10 86 18 106/71 98 Nasal Cannula 3.0 10/21/16 12:05 95 19 105/61 100 Nasal Cannula 3.0 10/21/16 12:00 92 14 105/61 98 Nasal Cannula 3.0 10/21/16 11:59 90 22 98 10/21/16 11:55 97.6 88 14 103/77 99 Nasal Cannula 3.0 10/21/16 10:22 98 19 4.0 10/21/16 09:59 98 19 4.0 10/21/16 08:00 97.7 99 19 119/75 98 Room Air 10/21/16 07:15 98 18 Room Air 21 10/21/16 04:00 97.0 98 18 107/72 94 Room Air 10/21/16 00:00 97.2 100 20 106/84 98 Room Air 10/20/16 22:16 120/75 10/20/16 20:00 92 18 Room Air 21 10/20/16 20:00 98.4 93 20 120/75 98 Room Air Intake and Output 10/20/16 10/21/16 19:00 07:00 Intake Total 118 ml 250 ml Output Total 75 ml 150 ml Balance 43 ml 100 ml Intake Oral 118 ml 250 ml Output Urine Total 75 ml 150 ml # Voids 1 3 # Bowel Movements 1 Laboratory Tests 10/21/16 05:45: White Blood Count 7.5, Red Blood Count 2.74L, Hemoglobin 8.8L, Hematocrit 29.9L , Mean Corpuscular Volume 109H, Mean Corpuscular Hemoglobin 32.2H, Mean Corpuscular Hemoglobin Concent 29.6L, Red Cell Distribution Width 22.8H, Platelet Count 351, Mean Platelet Volume 6.1L, Neutrophils (%) (Auto) 76.4H, Lymphocytes (%) (Auto) 8.7L, Monocytes (%) (Auto) 11.8H, Eosinophils (%) (Auto) 1.7, Basophils (%) (Auto) 1.4, Prothrombin Time 12.8H, Prothromb Time International Ratio 1.3H, Activated Partial Thromboplast Time 31, Sodium Level 132L, Potassium Level 4.7, Chloride Level 90L, Carbon Dioxide Level 18L, Anion Gap 24H, Blood Urea Nitrogen 36H, Creatinine 5.8H, Estimat Glomerular Filtration Rate 12.1, Glucose Level 86, Calcium Level 9.7, Phosphorus Level 5.2H , Total Bilirubin 1.9H, Direct Bilirubin 1.0H, Aspartate Amino Transf (AST/SGOT ) 17, Alanine Aminotransferase (ALT/SGPT) 7, Alkaline Phosphatase 125, C- Reactive Protein, Quantitative 3.8H, Pro-B-Type Natriuretic Peptide 13413X, Total Protein 6.7, Albumin 3.3L, Globulin 3.4, Albumin/Globulin Ratio 0.9L Current Medications Medications (Trade) Dose Ordered Sig/Lillian Route PRN Reason Start Time Stop Time Status Last Admin Dose Admin Acetaminophen (Tylenol) 650 mg Q4H PRN ORAL Fever 10/06/16 15:30 11/05/16 15:29 10/10/16 06:37 Dextrose (Dextrose 50%) STAT PRN IV Hypoglycemia 10/06/16 19:30 11/05/16 19:29 Epoetin Joseph (Procrit (for ESRD on dialysis)) 5,000 units TUE-TUE-TUE SUBQ 10/06/16 21:00 11/05/16 20:59 10/20/16 22:16 Insulin Aspart (NovoLOG) BEFORE MEALS AND HS SUBQ 10/06/16 16:30 11/05/16 16:29 Lidocaine (Lidoderm 5% PATCH) 1 patch DAILY TDERMAL 10/07/16 09:00 11/06/16 08:59 10/20/16 08:19 Lisinopril (Zestril) 2.5 mg Q12HR ORAL 10/06/16 21:00 11/05/16 20:59 10/20/16 22:16 Menthol/Methyl Salicylate (Bengay) 1 applic FOUR TIMES A DAY TOPIC 10/10/16 13:00 11/09/16 12:59 10/20/16 18:22 Ondansetron HCl (Zofran) 4 mg Q6H PRN IVP Nausea & Vomiting 10/06/16 13:30 11/05/16 13:29 Pantoprazole (Protonix) 40 mg ACBREAKFAST ORAL 10/09/16 06:30 11/06/16 08:59 10/20/16 06:00 Polyethylene Glycol (Miralax) 17 gm DAILYPRN PRN ORAL Constipation 10/06/16 19:30 11/05/16 19:29 10/12/16 21:13 Vitamin B Complex/ Vit C/Folic Acid (Nephrovite) 1 tab DAILY ORAL 10/07/16 09:00 11/06/16 08:59 10/20/16 08:18 CARLOS ALBERTO HERMAN Oct 21, 2016 19:16
[2016-10-21] MEDS ORDERED: HYDROmorphone 1mg/ml Carpuject IM PRN (21:15)
[2016-10-22] VITALS: BP 126/69
[2016-10-22] MEDS: traMADol 50mg tab ORAL PRN ×3 (00:35→21:05)
[2016-10-22] MEDS ORDERED: Hydromorphone 0.5mg/0.5ml inj IVP PRN (01:15)
[2016-10-22 04:38] VITALS: BP 127/71
[2016-10-22] MEDS: NovoLOG Insulin Flexpen SUBQ SCH ×4 (06:30→21:00)
[2016-10-22 06:41] LABS: ALBUMIN/GLOBULIN RATIO 0.9 (1.0-2.7); CALCIUM 9.2 mg/dL (8.6-10.2); CREATININE 5.9 mg/dL (0.7-1.2); GLOMERULAR FILTRATION RATE 11.9 mL/min (>60); POTASSIUM 5.3 mEQ/L (3.4-4.9); TOTAL PROTEIN 6.1 g/dL (6.6-8.7)
[2016-10-22 06:46] LABS: BASOPHILS % (AUTO) 1.9 % (0.0-2.0); EOSINOPHILS % (AUTO) 1.5 % (0.0-3.0); MEAN CORPUSCULAR HEMOGLOBIN 31.3 PG (27.0-31.0); MEAN CORPUSCULAR HGB CONC 28.4 G/DL (32.0-36.0); MEAN CORPUSCULAR VOLUME 110 FL (80-99); MEAN PLATELET VOLUME 6.3 FL (6.5-10.1); NEUTROPHILS % (AUTO) 78.5 % (45.0-75.0); PLATELET COUNT 297 K/UL (150-450); RED BLOOD COUNT 2.72 M/UL (4.70-6.10); RED CELL DISTRIBUTION WIDTH 22.1 % (11.6-14.8); WHITE BLOOD COUNT 7.3 K/UL (4.8-10.8)
[2016-10-22 08:00] VITALS: BP 115/74
[2016-10-22] MEDS: Nephrovite tab ORAL SCH (09:45)
[2016-10-22] MEDS: Lisinopril 2.5mg tab ORAL SCH ×2 (09:46→20:11)
[2016-10-22] MEDS: Analgesic Balm 15gm TOPIC SCH ×4 (09:54→20:59)
--- NOTE | 2016-10-22 10:05 | General Progress Note ---
Assessment/Plan Assessment/Plan (1) Cocaine abuse (2) Chest pain (3) CHF (4) ESRD on Hemodialysis (5) Lumbar sprain s/p fall (6) T spine compression fracture S/P Kyphoplasty. Pt will be continued on tramadol and dilaudid will be discontinued. Pt was d/w Dr. Rodriguez and he concurred. Subjective Date patient seen: Oct 22, 2016 Time patient seen: 08:15 - am Allergies: Coded Allergies: No Known Allergies (Unverified , 09/28/16) Subjective REVIEW OF SYSTEMS: Denies rash, fever, chills, sweating, dizziness, drowsiness, blurred vision, sore throat, or change in weight. No nausea, vomiting, diarrhea, or blood urine. No bowel or bladder incontinence. No dysuria. c/o back pain SUBJECTIVE: Pain has been at a mild level and is s/p kyphoplasty which has reduced his pain . Was started on Dilaudid but says that the tramadol has been beneficial. Objective Last 24 Hour Vital Signs Date Time Temp Pulse Resp B/P Pulse Ox O2 Delivery O2 Flow Rate FiO2 10/22/16 09:46 115/74 10/22/16 08:00 96.6 103 18 115/74 100 Nasal Cannula 2.0 10/22/16 04:38 97.5 100 19 127/71 98 Nasal Cannula 10/22/16 00:00 97.2 104 21 126/69 93 Nasal Cannula 10/21/16 20:31 122/70 10/21/16 20:00 18 122/70 98 Nasal Cannula 3.0 10/21/16 18:16 Nasal Cannula 3.0 21 10/21/16 14:55 Nasal Cannula 3.0 21 10/21/16 14:00 97.8 78 18 111/81 98 Nasal Cannula 3.0 10/21/16 13:30 97.8 90 18 106/69 97 Nasal Cannula 2.0 10/21/16 12:55 97.0 10/21/16 12:46 97.2 76 20 103/56 96 Nasal Cannula 3.0 10/21/16 12:40 78 19 111/69 96 Nasal Cannula 3.0 10/21/16 12:30 75 14 110/66 97 Nasal Cannula 3.0 10/21/16 12:20 78 16 104/65 98 Nasal Cannula 3.0 10/21/16 12:10 86 18 106/71 98 Nasal Cannula 3.0 10/21/16 12:05 95 19 105/61 100 Nasal Cannula 3.0 10/21/16 12:00 92 14 105/61 98 Nasal Cannula 3.0 10/21/16 11:59 90 22 98 10/21/16 11:55 97.6 88 14 103/77 99 Nasal Cannula 3.0 10/21/16 10:22 98 19 4.0 Intake and Output 10/21/16 10/22/16 19:00 07:00 Intake Total 350 ml 150 ml Output Total 1810 ml 0 ml Balance -1460 ml 150 ml Intake Oral 150 ml IV Total 350 ml Output Urine Total 0 ml Hemodialysis UF 1800 ml Estimated Blood Loss 10 ml Laboratory Tests 10/22/16 04:50: White Blood Count 7.3, Red Blood Count 2.72L, Hemoglobin 8.5L, Hematocrit 30.0L , Mean Corpuscular Volume 110H, Mean Corpuscular Hemoglobin 31.3H, Mean Corpuscular Hemoglobin Concent 28.4L, Red Cell Distribution Width 22.1H, Platelet Count 297, Mean Platelet Volume 6.3L, Neutrophils (%) (Auto) 78.5H, Lymphocytes (%) (Auto) 6.0L, Monocytes (%) (Auto) 12.0H, Eosinophils (%) (Auto) 1.5, Basophils (%) (Auto) 1.9, Sodium Level 136, Potassium Level 5.3H, Chloride Level 93L, Carbon Dioxide Level 26, Anion Gap 17H, Blood Urea Nitrogen 34H, Creatinine 5.9H, Estimat Glomerular Filtration Rate 11.9, Glucose Level 62L, Calcium Level 9.2, Total Bilirubin 1.8H, Direct Bilirubin 1.0H, Aspartate Amino Transf (AST/SGOT) 15, Alanine Aminotransferase (ALT/SGPT) 5, Alkaline Phosphatase 113, Total Protein 6.1L, Albumin 2.9L, Globulin 3.2, Albumin/ Globulin Ratio 0.9L Height (Feet): 5 Height (Inches): 2.00 Weight (Pounds): 161 Objective PHYSICAL EXAMINATION: GENERAL: Alert, awake, and oriented. HEENT: PERRLA. NECK: Range of motion is full in all directions. No tenderness to paracervical muscles. No adenopathy. LUNGS: Decreased breath sounds bilaterally. HEART: S1 and S2, regular. ABDOMEN: Obese. BACK: Range of motion is decreased in flexion and extension with tenderness to paraspinous and trapezius muscles. EXTREMITIES: No cyanosis, no clubbing, edema noted on RUE. NEURO: No changes. Procedure: NM Bone Scan Whole body Impression: T7 uptake corresponding to relatively recent fracture. Negative exam otherwise. No evidence of metastatic neoplasm ARRON EDWARD Oct 22, 2016 10:05
--- NOTE | 2016-10-22 11:08 | Cardiac Electrophysiology PN ---
Assessment/Plan Status Narrative Moderate left ventricular enlargement. Global left ventricular hypokinesis. Worse septal apper akinetic s. Left ventricular ejection fraction estimated to be 30-35 %. No evidence of left ventricular hypertrophy. No evidence of pericardial fat or effusion. Severe right atrial enlargement by 2D. Mild right atrial enlargement by 2D. Focal aortic valve sclerosis with adequate cusp excursion Mildly thickened mitral valve leaflets with normal excursion. Mitral annulus and aortic root calcification. Pulmonic valve is well visualized. Normal tricuspid valve structure. IVC dilated at 2.7cm no physiologic collapse with respiration.RA pressure of 20mmHg. Assessment/Plan 1. Chest pain due to cocaine vasospasm. Ruled out for myocardial infarction. Nuclear stress test showed no significant ischemia. Avoid beta-david for cocaine use. 2. Severe Cardiomyopathy with EF 30-35%. Off Beta david for cocaine use. On Lisinopril 2.5 bid and dialysis. 3. History of hypertension. On Lisinopril 2.5 bid. 4. End-stage renal disease, on hemodialysis. 5. Substance abuse with cocaine.Keep off betablockers 6. Anemia due to GI bleed. Stool OB positive. S/P EGD and colonoscopy that showed significant diverticulosis, Two polyps removed and Internal hemorrhoid per Dr Bal 7. Diabetes. 8. Acute versus subacute T7 vertebral body compression fracture with reduction of the vertebral height by approximately 40%, S/P Kyphoplasty 10/21/16. ZOHREH RN Subjective Subjective Had kyphoplasty yesterday. No chest pain or SOB. Had dialysis yesterday Objective Last 24 Hour Vital Signs Date Time Temp Pulse Resp B/P Pulse Ox O2 Delivery O2 Flow Rate FiO2 10/22/16 09:46 115/74 10/22/16 08:00 96.6 103 18 115/74 100 Nasal Cannula 2.0 10/22/16 04:38 97.5 100 19 127/71 98 Nasal Cannula 10/22/16 00:00 97.2 104 21 126/69 93 Nasal Cannula 10/21/16 20:31 122/70 10/21/16 20:00 18 122/70 98 Nasal Cannula 3.0 10/21/16 18:16 Nasal Cannula 3.0 21 10/21/16 14:55 Nasal Cannula 3.0 21 10/21/16 14:00 97.8 78 18 111/81 98 Nasal Cannula 3.0 10/21/16 13:30 97.8 90 18 106/69 97 Nasal Cannula 2.0 10/21/16 12:55 97.0 10/21/16 12:46 97.2 76 20 103/56 96 Nasal Cannula 3.0 10/21/16 12:40 78 19 111/69 96 Nasal Cannula 3.0 10/21/16 12:30 75 14 110/66 97 Nasal Cannula 3.0 10/21/16 12:20 78 16 104/65 98 Nasal Cannula 3.0 10/21/16 12:10 86 18 106/71 98 Nasal Cannula 3.0 10/21/16 12:05 95 19 105/61 100 Nasal Cannula 3.0 10/21/16 12:00 92 14 105/61 98 Nasal Cannula 3.0 10/21/16 11:59 90 22 98 10/21/16 11:55 97.6 88 14 103/77 99 Nasal Cannula 3.0 Intake and Output 10/21/16 10/22/16 19:00 07:00 Intake Total 350 ml 150 ml Output Total 1810 ml 0 ml Balance -1460 ml 150 ml Intake Oral 150 ml IV Total 350 ml Output Urine Total 0 ml Hemodialysis UF 1800 ml Estimated Blood Loss 10 ml Laboratory Tests Test 10/22/16 04:50 White Blood Count 7.3 K/UL (4.8-10.8) Red Blood Count 2.72 M/UL (4.70-6.10) L Hemoglobin 8.5 G/DL (14.2-18.0) L Hematocrit 30.0 % (42.0-52.0) L Mean Corpuscular Volume 110 FL (80-99) H Mean Corpuscular Hemoglobin 31.3 PG (27.0-31.0) H Mean Corpuscular Hemoglobin Concent 28.4 G/DL (32.0-36.0) L Red Cell Distribution Width 22.1 % (11.6-14.8) H Platelet Count 297 K/UL (150-450) Mean Platelet Volume 6.3 FL (6.5-10.1) L Neutrophils (%) (Auto) 78.5 % (45.0-75.0) H Lymphocytes (%) (Auto) 6.0 % (20.0-45.0) L Monocytes (%) (Auto) 12.0 % (1.0-10.0) H Eosinophils (%) (Auto) 1.5 % (0.0-3.0) Basophils (%) (Auto) 1.9 % (0.0-2.0) Sodium Level 136 mEQ/L (135-145) Potassium Level 5.3 mEQ/L (3.4-4.9) H Chloride Level 93 mEQ/L (98-107) L Carbon Dioxide Level 26 mEQ/L (20-30) Anion Gap 17 (5-15) H Blood Urea Nitrogen 34 mg/dL (7-23) H Creatinine 5.9 mg/dL (0.7-1.2) H Estimat Glomerular Filtration Rate 11.9 mL/min (>60) Glucose Level 62 mg/dL (74-106) L Calcium Level 9.2 mg/dL (8.6-10.2) Total Bilirubin 1.8 mg/dL (0.0-1.2) H Direct Bilirubin 1.0 mg/dL (0.1-0.3) H Aspartate Amino Transf (AST/SGOT) 15 U/L (5-40) Alanine Aminotransferase (ALT/SGPT) 5 U/L (3-41) Alkaline Phosphatase 113 U/L (40-129) Total Protein 6.1 g/dL (6.6-8.7) L Albumin 2.9 g/dL (3.5-5.2) L Globulin 3.2 g/dL Albumin/Globulin Ratio 0.9 (1.0-2.7) L Objective HEAD AND NECK: No jugular venous distention or carotid bruits. LUNGS: Clear. CARDIOVASCULAR: Regular S1 and S2 with no gallop or murmur. ABDOMEN: Soft and nontender. EXTREMITIES: No pitting edema. Dialysis access in the right chest. DILIA GUERRERO Oct 22, 2016 11:08
--- NOTE | 2016-10-22 11:11 | General Progress Note ---
Assessment/Plan Status: stable Assessment/Plan Status: (1) ESRD (end stage renal disease) on dialysis (2) Chest pain (3) Cocaine abuse (4) Anemia in chronic kidney disease (5) ? DVT right UE (6) Cardiomyopathy: Global left ventricular hypokinesis. Worse septal apper akinetic s. Left ventricular ejection fraction estimated to be 30-35 %. MR: Positive for acute or subacute T7 vertebral body compression fracture. Plan: had dialysis access placed / HD 10/19- next 10/21 On marcie inhibitors- per consultants ? DC planning ?? Kyphoplasty? Subjective ROS Limited/Unobtainable: No Constitutional: Reports: malaise Allergies: Coded Allergies: No Known Allergies (Unverified , 09/28/16) Objective Last 24 Hour Vital Signs Date Time Temp Pulse Resp B/P Pulse Ox O2 Delivery O2 Flow Rate FiO2 10/22/16 09:46 115/74 10/22/16 08:00 96.6 103 18 115/74 100 Nasal Cannula 2.0 10/22/16 04:38 97.5 100 19 127/71 98 Nasal Cannula 10/22/16 00:00 97.2 104 21 126/69 93 Nasal Cannula 10/21/16 20:31 122/70 10/21/16 20:00 18 122/70 98 Nasal Cannula 3.0 10/21/16 18:16 Nasal Cannula 3.0 21 10/21/16 14:55 Nasal Cannula 3.0 21 10/21/16 14:00 97.8 78 18 111/81 98 Nasal Cannula 3.0 10/21/16 13:30 97.8 90 18 106/69 97 Nasal Cannula 2.0 10/21/16 12:55 97.0 10/21/16 12:46 97.2 76 20 103/56 96 Nasal Cannula 3.0 10/21/16 12:40 78 19 111/69 96 Nasal Cannula 3.0 10/21/16 12:30 75 14 110/66 97 Nasal Cannula 3.0 10/21/16 12:20 78 16 104/65 98 Nasal Cannula 3.0 10/21/16 12:10 86 18 106/71 98 Nasal Cannula 3.0 10/21/16 12:05 95 19 105/61 100 Nasal Cannula 3.0 10/21/16 12:00 92 14 105/61 98 Nasal Cannula 3.0 10/21/16 11:59 90 22 98 10/21/16 11:55 97.6 88 14 103/77 99 Nasal Cannula 3.0 Intake and Output 10/21/16 10/22/16 19:00 07:00 Intake Total 350 ml 150 ml Output Total 1810 ml 0 ml Balance -1460 ml 150 ml Intake Oral 150 ml IV Total 350 ml Output Urine Total 0 ml Hemodialysis UF 1800 ml Estimated Blood Loss 10 ml Laboratory Tests 10/22/16 04:50: White Blood Count 7.3, Red Blood Count 2.72L, Hemoglobin 8.5L, Hematocrit 30.0L , Mean Corpuscular Volume 110H, Mean Corpuscular Hemoglobin 31.3H, Mean Corpuscular Hemoglobin Concent 28.4L, Red Cell Distribution Width 22.1H, Platelet Count 297, Mean Platelet Volume 6.3L, Neutrophils (%) (Auto) 78.5H, Lymphocytes (%) (Auto) 6.0L, Monocytes (%) (Auto) 12.0H, Eosinophils (%) (Auto) 1.5, Basophils (%) (Auto) 1.9, Sodium Level 136, Potassium Level 5.3H, Chloride Level 93L, Carbon Dioxide Level 26, Anion Gap 17H, Blood Urea Nitrogen 34H, Creatinine 5.9H, Estimat Glomerular Filtration Rate 11.9, Glucose Level 62L, Calcium Level 9.2, Total Bilirubin 1.8H, Direct Bilirubin 1.0H, Aspartate Amino Transf (AST/SGOT) 15, Alanine Aminotransferase (ALT/SGPT) 5, Alkaline Phosphatase 113, Total Protein 6.1L, Albumin 2.9L, Globulin 3.2, Albumin/ Globulin Ratio 0.9L Height (Feet): 5 Height (Inches): 2.00 Weight (Pounds): 161 General Appearance: no apparent distress Objective no change in PE KALEY RIOS Oct 22, 2016 11:11
--- NOTE | 2016-10-22 11:28 | General Progress Note ---
Assessment/Plan Assessment/Plan ASSESSMENT: 1. Anemia secondary to end-stage renal disease. Ferritin is 711. Is on epogen and HD 2. Acute drop in hgb, consider GI bleed, has been cleared by cards, pending colo in future 3. Thrombocytopenia potentially secondary to underlying infection. hep and hiv - , has improved 4. Coagulopathy INR is 1.2, improved 5. Diabetes mellitus. 6. End-stage renal disease on hemodialysis. 7. Cocaine use history. RECOMMENDATIONS: 1. Monitor counts. 2. Transfuse if hemoglobin < 7 3. Continue epogen 4. Followup GI recs - is now s/p colo 5. Followup on Nephrology, Pulmonary, GI, Cards recs 6. Transfuse if plts <20k 7. DVT prophylaxis with scds 8. GI prophylaxis ppi 9. Pain control. 10. staff. Thank you, Hugh Lopez MD Subjective Constitutional: Reports: no symptoms HEENT: Reports: no symptoms Cardiovascular: Reports: no symptoms Respiratory: Reports: no symptoms Gastrointestinal/Abdominal: Reports: poor appetite Genitourinary: Reports: no symptoms 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: Reports: no symptoms Endocrine: Reports: no symptoms Hematologic/Lymphatic: Reports: anemia Allergies: Coded Allergies: No Known Allergies (Unverified , 09/28/16) Subjective awake, is not bleeding, pain has improved Objective Last 24 Hour Vital Signs Date Time Temp Pulse Resp B/P Pulse Ox O2 Delivery O2 Flow Rate FiO2 10/22/16 09:46 115/74 10/22/16 08:00 96.6 103 18 115/74 100 Nasal Cannula 2.0 10/22/16 04:38 97.5 100 19 127/71 98 Nasal Cannula 10/22/16 00:00 97.2 104 21 126/69 93 Nasal Cannula 10/21/16 20:31 122/70 10/21/16 20:00 18 122/70 98 Nasal Cannula 3.0 10/21/16 18:16 Nasal Cannula 3.0 21 10/21/16 14:55 Nasal Cannula 3.0 21 10/21/16 14:00 97.8 78 18 111/81 98 Nasal Cannula 3.0 10/21/16 13:30 97.8 90 18 106/69 97 Nasal Cannula 2.0 10/21/16 12:55 97.0 10/21/16 12:46 97.2 76 20 103/56 96 Nasal Cannula 3.0 10/21/16 12:40 78 19 111/69 96 Nasal Cannula 3.0 10/21/16 12:30 75 14 110/66 97 Nasal Cannula 3.0 10/21/16 12:20 78 16 104/65 98 Nasal Cannula 3.0 10/21/16 12:10 86 18 106/71 98 Nasal Cannula 3.0 10/21/16 12:05 95 19 105/61 100 Nasal Cannula 3.0 10/21/16 12:00 92 14 105/61 98 Nasal Cannula 3.0 10/21/16 11:59 90 22 98 10/21/16 11:55 97.6 88 14 103/77 99 Nasal Cannula 3.0 Intake and Output 10/21/16 10/22/16 19:00 07:00 Intake Total 350 ml 150 ml Output Total 1810 ml 0 ml Balance -1460 ml 150 ml Intake Oral 150 ml IV Total 350 ml Output Urine Total 0 ml Hemodialysis UF 1800 ml Estimated Blood Loss 10 ml Laboratory Tests 10/22/16 04:50: White Blood Count 7.3, Red Blood Count 2.72L, Hemoglobin 8.5L, Hematocrit 30.0L , Mean Corpuscular Volume 110H, Mean Corpuscular Hemoglobin 31.3H, Mean Corpuscular Hemoglobin Concent 28.4L, Red Cell Distribution Width 22.1H, Platelet Count 297, Mean Platelet Volume 6.3L, Neutrophils (%) (Auto) 78.5H, Lymphocytes (%) (Auto) 6.0L, Monocytes (%) (Auto) 12.0H, Eosinophils (%) (Auto) 1.5, Basophils (%) (Auto) 1.9, Sodium Level 136, Potassium Level 5.3H, Chloride Level 93L, Carbon Dioxide Level 26, Anion Gap 17H, Blood Urea Nitrogen 34H, Creatinine 5.9H, Estimat Glomerular Filtration Rate 11.9, Glucose Level 62L, Calcium Level 9.2, Total Bilirubin 1.8H, Direct Bilirubin 1.0H, Aspartate Amino Transf (AST/SGOT) 15, Alanine Aminotransferase (ALT/SGPT) 5, Alkaline Phosphatase 113, Total Protein 6.1L, Albumin 2.9L, Globulin 3.2, Albumin/ Globulin Ratio 0.9L Height (Feet): 5 Height (Inches): 2.00 Weight (Pounds): 161 General Appearance: alert EENT: TMs normal Neck: normal inspection Cardiovascular: normal rate Respiratory/Chest: lungs clear Abdomen: soft Extremities: non-tender Edema: no edema noted Leg (L), no edema noted Leg (R) Edema: mild edema Neurologic: alert Skin: warm/dry Hugh Lopez Oct 22, 2016 11:28
[2016-10-22 12:00] VITALS: BP 110/53
--- NOTE | 2016-10-22 13:42 | GI Progress Note ---
Assessment/Plan Problems: (1) GIB (gastrointestinal bleeding) ICD Codes: K92.2 - Gastrointestinal hemorrhage, unspecified SNOMED: 50100624 (2) Cocaine abuse ICD Codes: F14.10 - Cocaine abuse, uncomplicated SNOMED: 18503064, 263384127 (3) Anemia in chronic kidney disease ICD Codes: N18.9 - Chronic kidney disease, unspecified; D63.1 - Anemia in chronic kidney disease SNOMED: 465210317, 570452524 (4) Chest pain ICD Codes: R07.9 - Chest pain, unspecified SNOMED: 18628737, 256804413 Qualifiers: Qualified Codes: R07.9 - Chest pain, unspecified Status: unchanged Status Narrative Discussed with Dr. Bal. Assessment/Plan SUMMARY OF FINDINGS: 1. Significant diverticulosis. 2. Two polyps removed, see above for details. 3. Internal hemorrhoids. RECOMMENDATIONS: ok for DC per GI standpoint cardiac diet monitor H&H, transfuse prn PPI fu biopsy for HP >> negative repeat colon x 3 years fu labs fu with PCP Subjective Subjective denies any GI symptoms. back pain Objective Last 24 Hour Vital Signs Date Time Temp Pulse Resp B/P Pulse Ox O2 Delivery O2 Flow Rate FiO2 10/22/16 12:00 96.1 114 20 110/53 96 Nasal Cannula 2.0 10/22/16 09:46 115/74 10/22/16 08:00 96.6 103 18 115/74 100 Nasal Cannula 2.0 10/22/16 04:38 97.5 100 19 127/71 98 Nasal Cannula 10/22/16 00:00 97.2 104 21 126/69 93 Nasal Cannula 10/21/16 20:31 122/70 10/21/16 20:00 18 122/70 98 Nasal Cannula 3.0 10/21/16 18:16 Nasal Cannula 3.0 21 10/21/16 14:55 Nasal Cannula 3.0 21 10/21/16 14:00 97.8 78 18 111/81 98 Nasal Cannula 3.0 Intake and Output 10/21/16 10/22/16 19:00 07:00 Intake Total 350 ml 150 ml Output Total 1810 ml 0 ml Balance -1460 ml 150 ml Intake Oral 150 ml IV Total 350 ml Output Urine Total 0 ml Hemodialysis UF 1800 ml Estimated Blood Loss 10 ml Laboratory Tests Test 10/22/16 04:50 White Blood Count 7.3 K/UL (4.8-10.8) Red Blood Count 2.72 M/UL (4.70-6.10) L Hemoglobin 8.5 G/DL (14.2-18.0) L Hematocrit 30.0 % (42.0-52.0) L Mean Corpuscular Volume 110 FL (80-99) H Mean Corpuscular Hemoglobin 31.3 PG (27.0-31.0) H Mean Corpuscular Hemoglobin Concent 28.4 G/DL (32.0-36.0) L Red Cell Distribution Width 22.1 % (11.6-14.8) H Platelet Count 297 K/UL (150-450) Mean Platelet Volume 6.3 FL (6.5-10.1) L Neutrophils (%) (Auto) 78.5 % (45.0-75.0) H Lymphocytes (%) (Auto) 6.0 % (20.0-45.0) L Monocytes (%) (Auto) 12.0 % (1.0-10.0) H Eosinophils (%) (Auto) 1.5 % (0.0-3.0) Basophils (%) (Auto) 1.9 % (0.0-2.0) Sodium Level 136 mEQ/L (135-145) Potassium Level 5.3 mEQ/L (3.4-4.9) H Chloride Level 93 mEQ/L (98-107) L Carbon Dioxide Level 26 mEQ/L (20-30) Anion Gap 17 (5-15) H Blood Urea Nitrogen 34 mg/dL (7-23) H Creatinine 5.9 mg/dL (0.7-1.2) H Estimat Glomerular Filtration Rate 11.9 mL/min (>60) Glucose Level 62 mg/dL (74-106) L Calcium Level 9.2 mg/dL (8.6-10.2) Total Bilirubin 1.8 mg/dL (0.0-1.2) H Direct Bilirubin 1.0 mg/dL (0.1-0.3) H Aspartate Amino Transf (AST/SGOT) 15 U/L (5-40) Alanine Aminotransferase (ALT/SGPT) 5 U/L (3-41) Alkaline Phosphatase 113 U/L (40-129) Total Protein 6.1 g/dL (6.6-8.7) L Albumin 2.9 g/dL (3.5-5.2) L Globulin 3.2 g/dL Albumin/Globulin Ratio 0.9 (1.0-2.7) L Height (Feet): 5 Height (Inches): 2.00 Weight (Pounds): 161 General Appearance: no apparent distress, alert Cardiovascular: normal rate Respiratory/Chest: normal breath sounds, no respiratory distress Abdominal Exam: normal bowel sounds, non tender, soft Objective s/p Kyphoplasty Sole Lucio N.P. Oct 22, 2016 13:42
[2016-10-22 15:30] VITALS: BP 108/69
--- NOTE | 2016-10-22 15:36 | Neurology Progress Note ---
Interim History Interim History Interim History Mr. Hines feels better today. The mind has cleared up. The back pain is better compared to before he had his kyphoplasty. The legs feel strong. He denies any numbness in the legs. He denies any new neurologic symptoms. He specifically denies any new weakness, numbness, speech or language problems. Review of Systems Neuro Review of Systems Benign. Objective Physical Exam Last Vital Signs Date Time Temp Pulse Resp B/P Pulse Ox O2 Delivery O2 Flow Rate FiO2 10/22/16 12:00 96.1 114 20 110/53 96 Nasal Cannula 2.0 10/21/16 18:16 21 Laboratory Tests Test 10/22/16 04:50 White Blood Count 7.3 K/UL (4.8-10.8) Red Blood Count 2.72 M/UL (4.70-6.10) L Hemoglobin 8.5 G/DL (14.2-18.0) L Hematocrit 30.0 % (42.0-52.0) L Mean Corpuscular Volume 110 FL (80-99) H Mean Corpuscular Hemoglobin 31.3 PG (27.0-31.0) H Mean Corpuscular Hemoglobin Concent 28.4 G/DL (32.0-36.0) L Red Cell Distribution Width 22.1 % (11.6-14.8) H Platelet Count 297 K/UL (150-450) Mean Platelet Volume 6.3 FL (6.5-10.1) L Neutrophils (%) (Auto) 78.5 % (45.0-75.0) H Lymphocytes (%) (Auto) 6.0 % (20.0-45.0) L Monocytes (%) (Auto) 12.0 % (1.0-10.0) H Eosinophils (%) (Auto) 1.5 % (0.0-3.0) Basophils (%) (Auto) 1.9 % (0.0-2.0) Sodium Level 136 mEQ/L (135-145) Potassium Level 5.3 mEQ/L (3.4-4.9) H Chloride Level 93 mEQ/L (98-107) L Carbon Dioxide Level 26 mEQ/L (20-30) Anion Gap 17 (5-15) H Blood Urea Nitrogen 34 mg/dL (7-23) H Creatinine 5.9 mg/dL (0.7-1.2) H Estimat Glomerular Filtration Rate 11.9 mL/min (>60) Glucose Level 62 mg/dL (74-106) L Calcium Level 9.2 mg/dL (8.6-10.2) Total Bilirubin 1.8 mg/dL (0.0-1.2) H Direct Bilirubin 1.0 mg/dL (0.1-0.3) H Aspartate Amino Transf (AST/SGOT) 15 U/L (5-40) Alanine Aminotransferase (ALT/SGPT) 5 U/L (3-41) Alkaline Phosphatase 113 U/L (40-129) Total Protein 6.1 g/dL (6.6-8.7) L Albumin 2.9 g/dL (3.5-5.2) L Globulin 3.2 g/dL Albumin/Globulin Ratio 0.9 (1.0-2.7) L Neurologic Exam Objective PHYSICAL EXAMINATION: GENERAL: He is a well-developed, well-nourished, pleasant black gentleman, lying in bed, in no acute distress. HEAD: Normocephalic and atraumatic. EENT: Examination benign NECK: No neck rigidity was observed. NEUROLOGICAL EXAMINATION: MENTAL STATUS EXAMINATION: He was alert and awake. He was oriented to [facility], and October 22, 2016. He was able to recall 3/3 words immediately, but could only remember 2/3 words in 1 minute and 3 minutes. He knew that Koko was President, but could not remember presidents prior to that. His mathematical skills were impaired. His visuospatial function was also impaired. SPEECH: He had no dysarthria. LANGUAGE: He had anomia for low frequency words. CRANIAL NERVE EXAMINATION: II: The visual glaser were intact in the right eye. In the left eye vision was poor . III, IV & : External ocular movements are full in the right eye and restricted in the left eye. V: He had normal facial sensations and the temporales, masseters, and pterygoids function normally. VII: He had normal facial expressions and no facial asymmetry. VIII: He was able to hear well bilaterally and had no nystagmus. IX: The palate moved symmetrically on phonation. X: He had no hoarseness of voice. XI: The sternocleidomastoids and trapezii functioned normally. XII: The tongue was in the midline without any fasciculations or atrophy. MOTOR SYSTEM: The tone was normal in all four extremities. Examination of muscle mass revealed no definite focal wasting however it should be noticed that his right upper extremity was significantly swollen. Examination of power revealed grade 5/5 power in all muscle groups tested. SENSORY EXAMINATION: He had intact sensations to pinprick, light touch, and graphesthesia. COORDINATION: He performed well on [id number] and [id number] testing. REFLEXES: 0 at the biceps, triceps, brachioradialis, knees, and ankles. The plantar responses were flexor bilaterally. STANCE: He stood up with contact guard. GAIT: He walked well with contact guard. Impression/Recommendations Diagnostic Impression 1. Mr. Demetrius Hines is a 60-year-old, right-handed, black gentleman, with past history of hypertension, diabetes mellitus, end-stage renal disease, and polysubstance abuse with tetrahydrocannabinol and cocaine who was hospitalized at another hospital prior to his hospitalization at [facility] on 09/29/2016. When he came in he did have some mid back pain which was quite severe for the first few days, but has been much better in the last few days. He was evaluated for this pain and was found to have a T7 compression fracture. 2. He had a kyphoplasty on 10/21/16. The procedure was uneventful. 3. The back pain is minimally better today. 4. On neurological examination, at this time, he does have problems with recent and remote memory, higher cognitive function, and language. He also has point tenderness over his mid thoracic spine predominantly in the T6 and T7 region. In addition, the deep tendon reflexes are globally absent. 5. An MRI scan of thoracic spine revealed an acute versus subacute T7 vertebral body compression fracture with reduction of the vertebral height by approximately 40%, a T10 vertebral body abnormal high T2 signal area is also seen which most probably represents either a hemangioma or a neoplasm. 6. The patient's history and neurological examination are most compatible with a subacute T7 compression fracture which is most probably traumatic in nature. He does not demonstrate any signs of spinal cord dysfunction. He is now S/P a kyphoplasty. Recommendations 1. Continue present management. 2. Mobilize rapidly. [place]. Anderson, M.D., Prateek. PATRICIA LONGORIA Oct 22, 2016 15:36
--- NOTE | 2016-10-22 16:54 | Pulmonology Progress Note ---
Assessment/Plan Problems: (1) Chest pain Assessment & Plan: stress study was negative (2) Acute respiratory failure Assessment & Plan: improved (3) Anemia in chronic kidney disease (4) ESRD (end stage renal disease) on dialysis (5) Fluid overload (6) Cocaine abuse (7) Back pain Assessment/Plan Hd access fell off, Needs a new access cardiac evaluation appreciated HD as needed med/surg if ok with Cardio Subjective Cardiovascular: Reports: chest pain, palpitations Allergies: Coded Allergies: No Known Allergies (Unverified , 09/28/16) Objective Last 24 Hour Vital Signs Date Time Temp Pulse Resp B/P Pulse Ox O2 Delivery O2 Flow Rate FiO2 10/22/16 15:30 96.4 101 20 108/69 98 Room Air 10/22/16 12:00 96.1 114 20 110/53 96 Nasal Cannula 2.0 10/22/16 09:46 115/74 10/22/16 08:00 96.6 103 18 115/74 100 Nasal Cannula 2.0 10/22/16 04:38 97.5 100 19 127/71 98 Nasal Cannula 10/22/16 00:00 97.2 104 21 126/69 93 Nasal Cannula 10/21/16 20:31 122/70 10/21/16 20:00 18 122/70 98 Nasal Cannula 3.0 10/21/16 18:16 Nasal Cannula 3.0 21 Intake and Output 10/21/16 10/22/16 19:00 07:00 Intake Total 350 ml 150 ml Output Total 1810 ml 0 ml Balance -1460 ml 150 ml Intake Oral 150 ml IV Total 350 ml Output Urine Total 0 ml Hemodialysis UF 1800 ml Estimated Blood Loss 10 ml General Appearance: no acute distress HEENT: normocephalic, atraumatic, PERRL Respiratory/Chest: chest wall non-tender, decreased breath sounds, accessory muscle use Cardiovascular: normal peripheral pulses, normal rate, regular rhythm, no JVD Abdomen: normal bowel sounds, soft, non tender, no organomegaly Genitourinary: normal external genitalia Extremities: no cyanosis Skin: no rash, no lesions 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: reaming machine tender II-XII grossly normal, no motor/sensory deficits Laboratory Tests 10/22/16 04:50: White Blood Count 7.3, Red Blood Count 2.72L, Hemoglobin 8.5L, Hematocrit 30.0L , Mean Corpuscular Volume 110H, Mean Corpuscular Hemoglobin 31.3H, Mean Corpuscular Hemoglobin Concent 28.4L, Red Cell Distribution Width 22.1H, Platelet Count 297, Mean Platelet Volume 6.3L, Neutrophils (%) (Auto) 78.5H, Lymphocytes (%) (Auto) 6.0L, Monocytes (%) (Auto) 12.0H, Eosinophils (%) (Auto) 1.5, Basophils (%) (Auto) 1.9, Sodium Level 136, Potassium Level 5.3H, Chloride Level 93L, Carbon Dioxide Level 26, Anion Gap 17H, Blood Urea Nitrogen 34H, Creatinine 5.9H, Estimat Glomerular Filtration Rate 11.9, Glucose Level 62L, Calcium Level 9.2, Total Bilirubin 1.8H, Direct Bilirubin 1.0H, Aspartate Amino Transf (AST/SGOT) 15, Alanine Aminotransferase (ALT/SGPT) 5, Alkaline Phosphatase 113, Total Protein 6.1L, Albumin 2.9L, Globulin 3.2, Albumin/ Globulin Ratio 0.9L Current Medications Medications (Trade) Dose Ordered Sig/Lillian Route PRN Reason Start Time Stop Time Status Last Admin Dose Admin Acetaminophen (Tylenol) 650 mg Q4H PRN ORAL Fever 10/06/16 15:30 11/05/16 15:29 10/10/16 06:37 Dextrose (Dextrose 50%) STAT PRN IV Hypoglycemia 10/06/16 19:30 11/05/16 19:29 Epoetin Joseph (Procrit (for ESRD on dialysis)) 5,000 units TUE-WED-TUE SUBQ 10/06/16 21:00 11/05/16 20:59 10/20/16 22:16 Insulin Aspart (NovoLOG) BEFORE MEALS AND HS SUBQ 10/06/16 16:30 11/05/16 16:29 Lidocaine (Lidoderm 5% PATCH) 1 patch DAILY TDERMAL 10/07/16 09:00 11/06/16 08:59 10/22/16 09:45 Lisinopril (Zestril) 2.5 mg Q12HR ORAL 10/06/16 21:00 11/05/16 20:59 10/22/16 09:46 Menthol/Methyl Salicylate (Bengay) 1 applic FOUR TIMES A DAY TOPIC 10/10/16 13:00 11/09/16 12:59 10/20/16 18:22 Ondansetron HCl (Zofran) 4 mg Q6H PRN IVP Nausea & Vomiting 10/06/16 13:30 11/05/16 13:29 Pantoprazole (Protonix) 40 mg ACBREAKFAST ORAL 10/09/16 06:30 11/06/16 08:59 10/22/16 06:35 Polyethylene Glycol (Miralax) 17 gm DAILYPRN PRN ORAL Constipation 10/06/16 19:30 11/05/16 19:29 10/12/16 21:13 Tramadol HCl (Ultram) 50 mg Q4H PRN ORAL moderate pain 10/21/16 21:15 10/28/16 21:14 10/22/16 09:55 Vitamin B Complex/ Vit C/Folic Acid (Nephrovite) 1 tab DAILY ORAL 10/07/16 09:00 11/06/16 08:59 10/22/16 09:45 CARLOS ALBERTO HERMAN Oct 22, 2016 16:54
--- NOTE | 2016-10-22 19:21 | Infectious Diseases Prog Note ---
Assessment/Plan Problems: (1) Colonization with VRE (vancomycin-resistant enterococcus) Assessment & Plan: keep in contact isolation (2) ESRD (end stage renal disease) on dialysis Assessment & Plan: continue HD as per renal. (3) Cocaine abuse Assessment & Plan: recommend counseling and rehab (4) Chest pain Assessment & Plan: had stress test which was negative for CAD, cardiology is following (5) Anemia in chronic kidney disease Assessment & Plan: stable, monitor H/H transfuse as needed (6) GIB (gastrointestinal bleeding) Assessment & Plan: due to diverticulosis and polyps, S/P EGD/colonoscopy , monitor H/H and transfuse blood as needed (7) Back pain Assessment & Plan: due to compression fracture , may benefit from kyphoplasty Subjective Musculoskeletal: Reports: pain Allergies: Coded Allergies: No Known Allergies (Unverified , 09/28/16) All Systems: reviewed and negative except above Subjective he was up in bed, doing well , denied any fever or chills, no diarrhea Objective Vital Signs Last 24 Hour Vital Signs Date Time Temp Pulse Resp B/P Pulse Ox O2 Delivery O2 Flow Rate FiO2 10/22/16 18:45 Room Air 2.0 21 10/22/16 15:30 96.4 101 20 108/69 98 Room Air 10/22/16 12:00 96.1 114 20 110/53 96 Nasal Cannula 2.0 10/22/16 09:46 115/74 10/22/16 08:00 96.6 103 18 115/74 100 Nasal Cannula 2.0 10/22/16 04:38 97.5 100 19 127/71 98 Nasal Cannula 10/22/16 00:00 97.2 104 21 126/69 93 Nasal Cannula 10/21/16 20:31 122/70 10/21/16 20:00 18 122/70 98 Nasal Cannula 3.0 Height (Feet): 5 Height (Inches): 2.00 Weight (Pounds): 161 General Appearance: WD/WN, no acute distress HEENT: normocephalic, atraumatic, anicteric, mucous membranes moist, PERRL Respiratory/Chest: chest wall non-tender, lungs clear, normal breath sounds, no respiratory distress, no accessory muscle use Cardiovascular: normal peripheral pulses, normal rate, regular rhythm, no gallop/murmur, no JVD Abdomen: normal bowel sounds, soft, non tender, no organomegaly, non distended , no mass, no scars Extremities: no cyanosis, no clubbing Laboratory Tests Test 10/22/16 04:50 White Blood Count 7.3 K/UL (4.8-10.8) Red Blood Count 2.72 M/UL (4.70-6.10) L Hemoglobin 8.5 G/DL (14.2-18.0) L Hematocrit 30.0 % (42.0-52.0) L Mean Corpuscular Volume 110 FL (80-99) H Mean Corpuscular Hemoglobin 31.3 PG (27.0-31.0) H Mean Corpuscular Hemoglobin Concent 28.4 G/DL (32.0-36.0) L Red Cell Distribution Width 22.1 % (11.6-14.8) H Platelet Count 297 K/UL (150-450) Mean Platelet Volume 6.3 FL (6.5-10.1) L Neutrophils (%) (Auto) 78.5 % (45.0-75.0) H Lymphocytes (%) (Auto) 6.0 % (20.0-45.0) L Monocytes (%) (Auto) 12.0 % (1.0-10.0) H Eosinophils (%) (Auto) 1.5 % (0.0-3.0) Basophils (%) (Auto) 1.9 % (0.0-2.0) Sodium Level 136 mEQ/L (135-145) Potassium Level 5.3 mEQ/L (3.4-4.9) H Chloride Level 93 mEQ/L (98-107) L Carbon Dioxide Level 26 mEQ/L (20-30) Anion Gap 17 (5-15) H Blood Urea Nitrogen 34 mg/dL (7-23) H Creatinine 5.9 mg/dL (0.7-1.2) H Estimat Glomerular Filtration Rate 11.9 mL/min (>60) Glucose Level 62 mg/dL (74-106) L Calcium Level 9.2 mg/dL (8.6-10.2) Total Bilirubin 1.8 mg/dL (0.0-1.2) H Direct Bilirubin 1.0 mg/dL (0.1-0.3) H Aspartate Amino Transf (AST/SGOT) 15 U/L (5-40) Alanine Aminotransferase (ALT/SGPT) 5 U/L (3-41) Alkaline Phosphatase 113 U/L (40-129) Total Protein 6.1 g/dL (6.6-8.7) L Albumin 2.9 g/dL (3.5-5.2) L Globulin 3.2 g/dL Albumin/Globulin Ratio 0.9 (1.0-2.7) L Current Medications Medications (Trade) Dose Ordered Sig/Lillian Route PRN Reason Start Time Stop Time Status Last Admin Dose Admin Acetaminophen (Tylenol) 650 mg Q4H PRN ORAL Fever 10/06/16 15:30 11/05/16 15:29 10/10/16 06:37 Dextrose (Dextrose 50%) STAT PRN IV Hypoglycemia 10/06/16 19:30 11/05/16 19:29 Epoetin Joseph (Procrit (for ESRD on dialysis)) 5,000 units MON-WED-TUE SUBQ 10/06/16 21:00 11/05/16 20:59 10/20/16 22:16 Insulin Aspart (NovoLOG) BEFORE MEALS AND HS SUBQ 10/06/16 16:30 11/05/16 16:29 Lidocaine (Lidoderm 5% PATCH) 1 patch DAILY TDERMAL 10/07/16 09:00 11/06/16 08:59 10/22/16 09:45 Lisinopril (Zestril) 2.5 mg Q12HR ORAL 10/06/16 21:00 11/05/16 20:59 10/22/16 09:46 Menthol/Methyl Salicylate (Bengay) 1 applic FOUR TIMES A DAY TOPIC 10/10/16 13:00 11/09/16 12:59 10/20/16 18:22 Ondansetron HCl (Zofran) 4 mg Q6H PRN IVP Nausea & Vomiting 10/06/16 13:30 11/05/16 13:29 Pantoprazole (Protonix) 40 mg ACBREAKFAST ORAL 10/09/16 06:30 11/06/16 08:59 10/22/16 06:35 Polyethylene Glycol (Miralax) 17 gm DAILYPRN PRN ORAL Constipation 10/06/16 19:30 11/05/16 19:29 10/12/16 21:13 Tramadol HCl (Ultram) 50 mg Q4H PRN ORAL moderate pain 10/21/16 21:15 10/28/16 21:14 10/22/16 09:55 Vitamin B Complex/ Vit C/Folic Acid (Nephrovite) 1 tab DAILY ORAL 10/07/16 09:00 11/06/16 08:59 10/22/16 09:45 Ivania Bhardwaj M.D. Oct 22, 2016 19:21
[2016-10-22 20:00] VITALS: BP 121/74
[2016-10-22] MEDS: Epogen (for ESRD on dialysis) SUBQ SCH (21:00)
[2016-10-23] VITALS (9 sets, daily range): BP systolic 104–126; BP diastolic 58–71
[2016-10-23] MEDS: NovoLOG Insulin Flexpen SUBQ SCH ×4 (06:17→21:00)
[2016-10-23 07:25] LABS: MEAN CORPUSCULAR HEMOGLOBIN 32.4 PG (27.0-31.0); MEAN CORPUSCULAR HGB CONC 29.2 G/DL (32.0-36.0); MEAN CORPUSCULAR VOLUME 111 FL (80-99); MEAN PLATELET VOLUME 6.1 FL (6.5-10.1); PLATELET COUNT 275 K/UL (150-450); RED BLOOD COUNT 2.64 M/UL (4.70-6.10); RED CELL DISTRIBUTION WIDTH 21.6 % (11.6-14.8); WHITE BLOOD COUNT 6.2 K/UL (4.8-10.8)
[2016-10-23 07:40] LABS: CALCIUM 9.2 mg/dL (8.6-10.2); CREATININE 6.3 mg/dL (0.7-1.2); POTASSIUM 4.8 mEQ/L (3.4-4.9); TOTAL PROTEIN 6.3 g/dL (6.6-8.7)
[2016-10-23 08:05] LABS: BILIRUBIN,DIRECT 0.9 mg/dL (0.1-0.3)
--- NOTE | 2016-10-23 09:58 | General Progress Note ---
Assessment/Plan Status: stable - from renal stand Assessment/Plan Status: (1) ESRD (end stage renal disease) on dialysis (2) Chest pain (3) Cocaine abuse (4) Anemia in chronic kidney disease (5) ? DVT right UE (6) Cardiomyopathy: Global left ventricular hypokinesis. Worse septal apper akinetic s. Left ventricular ejection fraction estimated to be 30-35 %. MR: Positive for acute or subacute T7 vertebral body compression fracture. Plan: had dialysis access placed / HD 10/23 On Brandon inhibitors- per consultants ? DC planning after HD Subjective ROS Limited/Unobtainable: No Constitutional: Reports: malaise Allergies: Coded Allergies: No Known Allergies (Unverified , 09/28/16) Objective Last 24 Hour Vital Signs Date Time Temp Pulse Resp B/P Pulse Ox O2 Delivery O2 Flow Rate FiO2 10/23/16 08:00 96.3 103 20 104/58 100 Room Air 10/23/16 04:00 96.1 99 16 116/65 100 Room Air 10/23/16 00:00 96.8 83 16 104/71 100 Room Air 10/22/16 20:11 122/72 10/22/16 20:00 96.6 96 20 121/74 81 Room Air 10/22/16 18:45 Room Air 2.0 21 10/22/16 15:30 96.4 101 20 108/69 98 Room Air 10/22/16 12:00 96.1 114 20 110/53 96 Nasal Cannula 2.0 Intake and Output 10/22/16 10/23/16 19:00 07:00 Intake Total 630 ml 480 ml Output Total 100 ml Balance 630 ml 380 ml Intake Oral 630 ml 480 ml Output Urine Total 100 ml # Voids 1 3 Laboratory Tests 10/23/16 04:50: White Blood Count 6.2, Red Blood Count 2.64L, Hemoglobin 8.6L, Hematocrit 29.4L , Mean Corpuscular Volume 111H, Mean Corpuscular Hemoglobin 32.4H, Mean Corpuscular Hemoglobin Concent 29.2L, Red Cell Distribution Width 21.6H, Platelet Count 275, Mean Platelet Volume 6.1L, Neutrophils (%) (Auto) , Lymphocytes (%) (Auto) , Monocytes (%) (Auto) , Eosinophils (%) (Auto) , Basophils (%) (Auto) , Neutrophils % (Manual) [Pending], Lymphocytes % (Manual) [Pending], Platelet Estimate [Pending], Platelet Morphology [Pending], Sodium Level 133L, Potassium Level 4.8, Chloride Level 90L, Carbon Dioxide Level 24, Anion Gap 19H, Blood Urea Nitrogen 41H, Creatinine 6.3H, Estimat Glomerular Filtration Rate 11.0, Glucose Level 73L, Calcium Level 9.2, Total Bilirubin 1.5H , Direct Bilirubin 0.9H, Aspartate Amino Transf (AST/SGOT) 14, Alanine Aminotransferase (ALT/SGPT) 5, Alkaline Phosphatase 114, Total Protein 6.3L, Albumin 3.2L, Globulin 3.1, Albumin/Globulin Ratio 1.0 Height (Feet): 5 Height (Inches): 2.00 Weight (Pounds): 160 General Appearance: no apparent distress Objective no change in PE KALEY RIOS Oct 23, 2016 09:58
[2016-10-23] MEDS: Nephrovite tab ORAL SCH (10:00)
[2016-10-23] MEDS: Analgesic Balm 15gm TOPIC SCH ×4 (10:01→21:00)
[2016-10-23] MEDS ORDERED: Cathflo Alteplase 2mg Inj INJ ONE (13:00)
--- NOTE | 2016-10-23 13:20 | Cardiac Electrophysiology PN ---
Assessment/Plan Status Narrative Moderate left ventricular enlargement. Global left ventricular hypokinesis. Worse septal apper akinetic s. Left ventricular ejection fraction estimated to be 30-35 %. No evidence of left ventricular hypertrophy. No evidence of pericardial fat or effusion. Severe right atrial enlargement by 2D. Mild right atrial enlargement by 2D. Focal aortic valve sclerosis with adequate cusp excursion Mildly thickened mitral valve leaflets with normal excursion. Mitral annulus and aortic root calcification. Pulmonic valve is well visualized. Normal tricuspid valve structure. IVC dilated at 2.7cm no physiologic collapse with respiration.RA pressure of 20mmHg. Assessment/Plan 1. Chest pain due to cocaine vasospasm. Ruled out for myocardial infarction. Nuclear stress test showed no significant ischemia. Avoid beta-david for cocaine use. 2. Severe Cardiomyopathy with EF 30-35%. Off Beta david for cocaine use. On Lisinopril 2.5 bid and dialysis. 3. History of hypertension. On Lisinopril 2.5 bid. 4. End-stage renal disease, on hemodialysis. Dialysis access not functioning today. 5. Substance abuse with cocaine.Off betablockers 6. Anemia due to GI bleed. Stool OB positive. S/P EGD and colonoscopy that showed significant diverticulosis, Two polyps removed and Internal hemorrhoid per Dr Bal 7. Diabetes. 8. Acute versus subacute T7 vertebral body compression fracture with reduction of the vertebral height by approximately 40%, S/P Kyphoplasty 10/21/16. ZOHREH RN Subjective Subjective No chest pain or SOB.Couldn't get dialysis today as left IJ line not working. Objective Last 24 Hour Vital Signs Date Time Temp Pulse Resp B/P Pulse Ox O2 Delivery O2 Flow Rate FiO2 10/23/16 11:38 96.4 87 18 126/71 99 Room Air 10/23/16 08:00 96.3 103 20 104/58 100 Room Air 10/23/16 04:00 96.1 99 16 116/65 100 Room Air 10/23/16 00:00 96.8 83 16 104/71 100 Room Air 10/22/16 20:11 122/72 10/22/16 20:00 96.6 96 20 121/74 81 Room Air 10/22/16 18:45 Room Air 2.0 21 10/22/16 15:30 96.4 101 20 108/69 98 Room Air Intake and Output 10/22/16 10/23/16 19:00 07:00 Intake Total 630 ml 480 ml Output Total 100 ml Balance 630 ml 380 ml Intake Oral 630 ml 480 ml Output Urine Total 100 ml # Voids 1 3 Laboratory Tests Test 10/23/16 04:50 White Blood Count 6.2 K/UL (4.8-10.8) Red Blood Count 2.64 M/UL (4.70-6.10) L Hemoglobin 8.6 G/DL (14.2-18.0) L Hematocrit 29.4 % (42.0-52.0) L Mean Corpuscular Volume 111 FL (80-99) H Mean Corpuscular Hemoglobin 32.4 PG (27.0-31.0) H Mean Corpuscular Hemoglobin Concent 29.2 G/DL (32.0-36.0) L Red Cell Distribution Width 21.6 % (11.6-14.8) H Platelet Count 275 K/UL (150-450) Mean Platelet Volume 6.1 FL (6.5-10.1) L Neutrophils (%) (Auto) % (45.0-75.0) Lymphocytes (%) (Auto) % (20.0-45.0) Monocytes (%) (Auto) % (1.0-10.0) Eosinophils (%) (Auto) % (0.0-3.0) Basophils (%) (Auto) % (0.0-2.0) Neutrophils % (Manual) Pending Lymphocytes % (Manual) Pending Platelet Estimate Pending Platelet Morphology Pending Sodium Level 133 mEQ/L (135-145) L Potassium Level 4.8 mEQ/L (3.4-4.9) Chloride Level 90 mEQ/L (98-107) L Carbon Dioxide Level 24 mEQ/L (20-30) Anion Gap 19 (5-15) H Blood Urea Nitrogen 41 mg/dL (7-23) H Creatinine 6.3 mg/dL (0.7-1.2) H Estimat Glomerular Filtration Rate 11.0 mL/min (>60) Glucose Level 73 mg/dL (74-106) L Calcium Level 9.2 mg/dL (8.6-10.2) Total Bilirubin 1.5 mg/dL (0.0-1.2) H Direct Bilirubin 0.9 mg/dL (0.1-0.3) H Aspartate Amino Transf (AST/SGOT) 14 U/L (5-40) Alanine Aminotransferase (ALT/SGPT) 5 U/L (3-41) Alkaline Phosphatase 114 U/L (40-129) Total Protein 6.3 g/dL (6.6-8.7) L Albumin 3.2 g/dL (3.5-5.2) L Globulin 3.1 g/dL Albumin/Globulin Ratio 1.0 (1.0-2.7) Objective HEAD AND NECK: No jugular venous distention or carotid bruits.Left IJ PermCath not working! LUNGS: Clear. CARDIOVASCULAR: Regular S1 and S2 with no gallop or murmur. ABDOMEN: Soft and nontender. EXTREMITIES: No pitting edema. DILIA GUERRERO Oct 23, 2016 13:19
[2016-10-23 13:37] LABS: ANISOCYTOSIS 3+; BAND NEUTROPHILS % (MANUAL) 0 % (0-8); BASOPHILS % (MANUAL) 1 % (0-2); EOSINOPHILS % (MANUAL) 1 % (0-3); HYPOCHROMASIA 2+; LYMPHOCYTES % (MANUAL) 4 % (20-45); MACROCYTES 2+; NEUTROPHILS % (MANUAL) 88 % (45-75); PLATELET ESTIMATE ADEQUATE; PLATELET MORPHOLOGY NORMAL; TOTAL CELLS COUNTED 100
--- NOTE | 2016-10-23 13:41 | General Progress Note ---
Assessment/Plan Problem List: (1) Cocaine abuse ICD Codes: F14.10 - Cocaine abuse, uncomplicated SNOMED: 33152852, [id number] (2) Chest pain ICD Codes: R07.9 - Chest pain, unspecified SNOMED: 18661302, [id number] Qualifiers: Qualified Codes: R07.9 - Chest pain, unspecified Status: progressing Assessment/Plan compression fracture s/p kyphoplasty dc of ca by dr stubbs [facility] w Subjective ROS Limited/Unobtainable: Yes Constitutional: Reports: no symptoms Allergies: Coded Allergies: No Known Allergies (Unverified , 09/28/16) Subjective back pain Objective Last 24 Hour Vital Signs Date Time Temp Pulse Resp B/P Pulse Ox O2 Delivery O2 Flow Rate FiO2 10/23/16 11:38 96.4 87 18 126/71 99 Room Air 10/23/16 08:00 96.3 103 20 104/58 100 Room Air 10/23/16 04:00 96.1 99 16 116/65 100 Room Air 10/23/16 00:00 96.8 83 16 104/71 100 Room Air 10/22/16 20:11 122/72 10/22/16 20:00 96.6 96 20 121/74 81 Room Air 10/22/16 18:45 Room Air 2.0 21 10/22/16 15:30 96.4 101 20 108/69 98 Room Air Intake and Output 10/22/16 10/23/16 19:00 07:00 Intake Total 630 ml 480 ml Output Total 100 ml Balance 630 ml 380 ml Intake Oral 630 ml 480 ml Output Urine Total 100 ml # Voids 1 3 Laboratory Tests 10/23/16 04:50: White Blood Count 6.2, Red Blood Count 2.64L, Hemoglobin 8.6L, Hematocrit 29.4L , Mean Corpuscular Volume 111H, Mean Corpuscular Hemoglobin 32.4H, Mean Corpuscular Hemoglobin Concent 29.2L, Red Cell Distribution Width 21.6H, Platelet Count 275, Mean Platelet Volume 6.1L, Neutrophils (%) (Auto) , Lymphocytes (%) (Auto) , Monocytes (%) (Auto) , Eosinophils (%) (Auto) , Basophils (%) (Auto) , Differential Total Cells Counted 100, Neutrophils % ( Manual) 88H, Lymphocytes % (Manual) 4L, Monocytes % (Manual) 6, Eosinophils % ( Manual) 1, Basophils % (Manual) 1, Band Neutrophils 0, Platelet Estimate Adequate, Platelet Morphology Normal, Hypochromasia 2+, Anisocytosis 3+, Macrocytosis 2+, Sodium Level 133L, Potassium Level 4.8, Chloride Level 90L, Carbon Dioxide Level 24, Anion Gap 19H, Blood Urea Nitrogen 41H, Creatinine 6.3H , Estimat Glomerular Filtration Rate 11.0, Glucose Level 73L, Calcium Level 9.2 , Total Bilirubin 1.5H, Direct Bilirubin 0.9H, Aspartate Amino Transf (AST/SGOT ) 14, Alanine Aminotransferase (ALT/SGPT) 5, Alkaline Phosphatase 114, Total Protein 6.3L, Albumin 3.2L, Globulin 3.1, Albumin/Globulin Ratio 1.0 Height (Feet): 5 Height (Inches): 2.00 Weight (Pounds): 160 EENT: PERRL/EOMI Neck: supple Cardiovascular: normal rate Respiratory/Chest: lungs clear Liu Elizondo MD Oct 23, 2016 13:41
--- NOTE | 2016-10-23 14:14 | Neurology Progress Note ---
Interim History Interim History Interim History Mr. Hines feels better. The mind is clear. The back pain is better compared to before he had his kyphoplasty. The legs feel strong. He denies any numbness in the legs. He denies any new neurologic symptoms. He specifically denies any new weakness, numbness, speech or language problems. Review of Systems Neuro Review of Systems Benign. Objective Physical Exam Last Vital Signs Date Time Temp Pulse Resp B/P Pulse Ox O2 Delivery O2 Flow Rate FiO2 10/23/16 11:38 96.4 87 18 126/71 99 Room Air 10/22/16 18:45 2.0 21 Laboratory Tests Test 10/23/16 04:50 White Blood Count 6.2 K/UL (4.8-10.8) Red Blood Count 2.64 M/UL (4.70-6.10) L Hemoglobin 8.6 G/DL (14.2-18.0) L Hematocrit 29.4 % (42.0-52.0) L Mean Corpuscular Volume 111 FL (80-99) H Mean Corpuscular Hemoglobin 32.4 PG (27.0-31.0) H Mean Corpuscular Hemoglobin Concent 29.2 G/DL (32.0-36.0) L Red Cell Distribution Width 21.6 % (11.6-14.8) H Platelet Count 275 K/UL (150-450) Mean Platelet Volume 6.1 FL (6.5-10.1) L Neutrophils (%) (Auto) % (45.0-75.0) Lymphocytes (%) (Auto) % (20.0-45.0) Monocytes (%) (Auto) % (1.0-10.0) Eosinophils (%) (Auto) % (0.0-3.0) Basophils (%) (Auto) % (0.0-2.0) Differential Total Cells Counted 100 Neutrophils % (Manual) 88 % (45-75) H Lymphocytes % (Manual) 4 % (20-45) L Monocytes % (Manual) 6 % (1-10) Eosinophils % (Manual) 1 % (0-3) Basophils % (Manual) 1 % (0-2) Band Neutrophils 0 % (0-8) Platelet Estimate Adequate Platelet Morphology Normal Hypochromasia 2+ Anisocytosis 3+ Macrocytosis 2+ Sodium Level 133 mEQ/L (135-145) L Potassium Level 4.8 mEQ/L (3.4-4.9) Chloride Level 90 mEQ/L (98-107) L Carbon Dioxide Level 24 mEQ/L (20-30) Anion Gap 19 (5-15) H Blood Urea Nitrogen 41 mg/dL (7-23) H Creatinine 6.3 mg/dL (0.7-1.2) H Estimat Glomerular Filtration Rate 11.0 mL/min (>60) Glucose Level 73 mg/dL (74-106) L Calcium Level 9.2 mg/dL (8.6-10.2) Total Bilirubin 1.5 mg/dL (0.0-1.2) H Direct Bilirubin 0.9 mg/dL (0.1-0.3) H Aspartate Amino Transf (AST/SGOT) 14 U/L (5-40) Alanine Aminotransferase (ALT/SGPT) 5 U/L (3-41) Alkaline Phosphatase 114 U/L (40-129) Total Protein 6.3 g/dL (6.6-8.7) L Albumin 3.2 g/dL (3.5-5.2) L Globulin 3.1 g/dL Albumin/Globulin Ratio 1.0 (1.0-2.7) Neurologic Exam Objective PHYSICAL EXAMINATION: GENERAL: He is a well-developed, well-nourished, pleasant black gentleman, lying in bed, in no acute distress, being prepared for HD. HEAD: Normocephalic and atraumatic. EENT: Examination benign NECK: No neck rigidity was observed. NEUROLOGICAL EXAMINATION: MENTAL STATUS EXAMINATION: He was alert and awake. He was oriented to [facility], [facility], and October 23, 2016. He was able to recall 3/3 words immediately, but could only remember 2/3 words in 1 minute and 3 minutes. He knew that Obama was President, but could not remember presidents prior to that. His mathematical skills were impaired. His visuospatial function was also impaired. SPEECH: He had no dysarthria. LANGUAGE: He had anomia for low frequency words. CRANIAL NERVE EXAMINATION: II: The visual glaser were intact in the right eye. In the left eye vision was poor . III, IV & : External ocular movements are full in the right eye and restricted in the left eye. V: He had normal facial sensations and the temporales, masseters, and pterygoids function normally. VII: He had normal facial expressions and no facial asymmetry. VIII: He was able to hear well bilaterally and had no nystagmus. IX: The palate moved symmetrically on phonation. X: He had no hoarseness of voice. XI: The sternocleidomastoids and trapezii functioned normally. XII: The tongue was in the midline without any fasciculations or atrophy. MOTOR SYSTEM: The tone was normal in all four extremities. Examination of muscle mass revealed no definite focal wasting however it should be noticed that his right upper extremity was significantly swollen. Examination of power revealed grade 5/5 power in all muscle groups tested. SENSORY EXAMINATION: He had intact sensations to pinprick, light touch, and graphesthesia. COORDINATION: He performed well on [id number] and gtfo-ly-uyam testing. REFLEXES: 0 at the biceps, triceps, brachioradialis, knees, and ankles. The plantar responses were flexor bilaterally. STANCE & GAIT: Were not tested as he was being prepared for HD. Impression/Recommendations Diagnostic Impression 1. Mr. Demetrius Hines is a 60-year-old, right-handed, black gentleman, with past history of hypertension, diabetes mellitus, end-stage renal disease, and polysubstance abuse with tetrahydrocannabinol and cocaine who was hospitalized at another hospital prior to his hospitalization at [facility] on 09/29/2016. When he came in he did have some mid back pain which was quite severe for the first few days, but has been much better in the last few days. He was evaluated for this pain and was found to have a T7 compression fracture. 2. He had a kyphoplasty on 10/21/16. The procedure was uneventful. 3. The back pain continues to improve. 4. On neurological examination, at this time, he does have problems with recent and remote memory, higher cognitive function, and language. He also has point tenderness over his mid thoracic spine predominantly in the T6 and T7 region. In addition, the deep tendon reflexes are globally absent. 5. An MRI scan of thoracic spine revealed an acute versus subacute T7 vertebral body compression fracture with reduction of the vertebral height by approximately 40%, a T10 vertebral body abnormal high T2 signal area is also seen which most probably represents either a hemangioma or a neoplasm. 6. The patient's history and neurological examination are most compatible with a subacute T7 compression fracture which is most probably traumatic in nature. He does not demonstrate any signs of spinal cord dysfunction. He is now S/P a kyphoplasty. Recommendations 1. Continue present management. 2. Mobilize. 3. Gentle back strengthening exercises. Patricia Barron M.D., M.S.P.H. PATRICIA BARRON Oct 23, 2016 14:14
--- NOTE | 2016-10-23 15:21 | General Progress Note ---
Assessment/Plan Assessment/Plan ASSESSMENT: 1. Anemia secondary to end-stage renal disease. Ferritin is 711. Is on epogen and HD prn basis 2. Acute drop in hgb, consider GI bleed, has been cleared by cards, pending colo 3. Thrombocytopenia potentially secondary to underlying infection. hep and hiv - , now improved 4. Coagulopathy INR is 1.2, improved 5. Diabetes mellitus. 6. End-stage renal disease on hemodialysis. 7. Cocaine use history. RECOMMENDATIONS: 1. Monitor counts. 2. Transfuse if hemoglobin <7 3. Continue epogen 4. Followup GI recs - is now s/p colo 5. Ultrasound of the abdomen has been reviewed 6. Anemia workup has been reviewed 7. Followup on Nephrology, Pulmonary, GI, Cards recs 8. Transfuse if plts <20k 9. DVT prophylaxis with scds 10. GI prophylaxis ppi 11. Pain control. 12. staff. Thank you, Jean-Claude Lopez MD Subjective Constitutional: Reports: no symptoms HEENT: Reports: no symptoms Cardiovascular: Reports: no symptoms Respiratory: Reports: no symptoms Gastrointestinal/Abdominal: Reports: no symptoms Genitourinary: Reports: no symptoms 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: Reports: no symptoms Endocrine: Reports: no symptoms Hematologic/Lymphatic: Reports: anemia Allergies: Coded Allergies: No Known Allergies (Unverified , 09/28/16) Subjective stable, no fevers, has had no bleeding Objective Last 24 Hour Vital Signs Date Time Temp Pulse Resp B/P Pulse Ox O2 Delivery O2 Flow Rate FiO2 10/23/16 11:38 96.4 87 18 126/71 99 Room Air 10/23/16 08:00 96.3 103 20 104/58 100 Room Air 10/23/16 04:00 96.1 99 16 116/65 100 Room Air 10/23/16 00:00 96.8 83 16 104/71 100 Room Air 10/22/16 20:11 122/72 10/22/16 20:00 96.6 96 20 121/74 81 Room Air 10/22/16 18:45 Room Air 2.0 21 10/22/16 15:30 96.4 101 20 108/69 98 Room Air Intake and Output 10/22/16 10/23/16 19:00 07:00 Intake Total 630 ml 480 ml Output Total 100 ml Balance 630 ml 380 ml Intake Oral 630 ml 480 ml Output Urine Total 100 ml # Voids 1 3 Laboratory Tests 10/23/16 04:50: White Blood Count 6.2, Red Blood Count 2.64L, Hemoglobin 8.6L, Hematocrit 29.4L , Mean Corpuscular Volume 111H, Mean Corpuscular Hemoglobin 32.4H, Mean Corpuscular Hemoglobin Concent 29.2L, Red Cell Distribution Width 21.6H, Platelet Count 275, Mean Platelet Volume 6.1L, Neutrophils (%) (Auto) , Lymphocytes (%) (Auto) , Monocytes (%) (Auto) , Eosinophils (%) (Auto) , Basophils (%) (Auto) , Differential Total Cells Counted 100, Neutrophils % ( Manual) 88H, Lymphocytes % (Manual) 4L, Monocytes % (Manual) 6, Eosinophils % ( Manual) 1, Basophils % (Manual) 1, Band Neutrophils 0, Platelet Estimate Adequate, Platelet Morphology Normal, Hypochromasia 2+, Anisocytosis 3+, Macrocytosis 2+, Sodium Level 133L, Potassium Level 4.8, Chloride Level 90L, Carbon Dioxide Level 24, Anion Gap 19H, Blood Urea Nitrogen 41H, Creatinine 6.3H , Estimat Glomerular Filtration Rate 11.0, Glucose Level 73L, Calcium Level 9.2 , Total Bilirubin 1.5H, Direct Bilirubin 0.9H, Aspartate Amino Transf (AST/SGOT ) 14, Alanine Aminotransferase (ALT/SGPT) 5, Alkaline Phosphatase 114, Total Protein 6.3L, Albumin 3.2L, Globulin 3.1, Albumin/Globulin Ratio 1.0 Height (Feet): 5 Height (Inches): 2.00 Weight (Pounds): 160 General Appearance: no apparent distress EENT: normal ENT inspection Neck: normal alignment Cardiovascular: normal rate Respiratory/Chest: lungs clear Abdomen: soft Extremities: non-tender Edema: no edema noted Leg (L), no edema noted Leg (R) Edema: mild edema Neurologic: alert Skin: normal pigmentation JEAN-CLAUDE LOPEZ Oct 23, 2016 15:21
--- NOTE | 2016-10-23 15:23 | Infectious Diseases Prog Note ---
Assessment/Plan Problems: (1) Colonization with VRE (vancomycin-resistant enterococcus) Assessment & Plan: keep in contact isolation (2) ESRD (end stage renal disease) on dialysis Assessment & Plan: continue HD as per renal. (3) Cocaine abuse Assessment & Plan: recommend counseling and rehab (4) Chest pain Assessment & Plan: had stress test which was negative for CAD, cardiology is following (5) Anemia in chronic kidney disease Assessment & Plan: stable, monitor H/H transfuse as needed (6) GIB (gastrointestinal bleeding) Assessment & Plan: due to diverticulosis and polyps, S/P EGD/colonoscopy , monitor H/H and transfuse blood as needed (7) Back pain Assessment & Plan: due to compression fracture , may benefit from kyphoplasty Subjective Constitutional: Reports: no symptoms HEENT: Reports: no symptoms Respiratory: Reports: no symptoms Breasts: Reports: no symptoms Cardiovascular: Reports: no symptoms Gastrointestinal/Abdominal: Reports: no symptoms Genitourinary: Reports: no symptoms Neurologic: Reports: no symptoms Psychiatric: Reports: no symptoms Skin: Reports: no symptoms Endocrine: Reports: no symptoms Allergies: Coded Allergies: No Known Allergies (Unverified , 09/28/16) Subjective he was up in bed, doing well , denied any fever or chills, no diarrhea Objective Vital Signs Last 24 Hour Vital Signs Date Time Temp Pulse Resp B/P Pulse Ox O2 Delivery O2 Flow Rate FiO2 10/23/16 14:30 97.4 88 20 119/59 Room Air 10/23/16 11:38 96.4 87 18 126/71 99 Room Air 10/23/16 08:00 96.3 103 20 104/58 100 Room Air 10/23/16 04:00 96.1 99 16 116/65 100 Room Air 10/23/16 00:00 96.8 83 16 104/71 100 Room Air 10/22/16 20:11 122/72 10/22/16 20:00 96.6 96 20 121/74 81 Room Air 10/22/16 18:45 Room Air 2.0 21 10/22/16 15:30 96.4 101 20 108/69 98 Room Air Height (Feet): 5 Height (Inches): 2.00 Weight (Pounds): 160 General Appearance: WD/WN, no acute distress HEENT: normocephalic, atraumatic, anicteric, mucous membranes moist Respiratory/Chest: chest wall non-tender, lungs clear, normal breath sounds, no respiratory distress, no accessory muscle use Cardiovascular: normal peripheral pulses, normal rate, regular rhythm, no gallop/murmur Abdomen: normal bowel sounds, soft, non tender, no organomegaly, non distended , no mass Extremities: no cyanosis, no clubbing Skin: no rash, no lesions, no ulcers Laboratory Tests Test 10/23/16 04:50 White Blood Count 6.2 K/UL (4.8-10.8) Red Blood Count 2.64 M/UL (4.70-6.10) L Hemoglobin 8.6 G/DL (14.2-18.0) L Hematocrit 29.4 % (42.0-52.0) L Mean Corpuscular Volume 111 FL (80-99) H Mean Corpuscular Hemoglobin 32.4 PG (27.0-31.0) H Mean Corpuscular Hemoglobin Concent 29.2 G/DL (32.0-36.0) L Red Cell Distribution Width 21.6 % (11.6-14.8) H Platelet Count 275 K/UL (150-450) Mean Platelet Volume 6.1 FL (6.5-10.1) L Neutrophils (%) (Auto) % (45.0-75.0) Lymphocytes (%) (Auto) % (20.0-45.0) Monocytes (%) (Auto) % (1.0-10.0) Eosinophils (%) (Auto) % (0.0-3.0) Basophils (%) (Auto) % (0.0-2.0) Differential Total Cells Counted 100 Neutrophils % (Manual) 88 % (45-75) H Lymphocytes % (Manual) 4 % (20-45) L Monocytes % (Manual) 6 % (1-10) Eosinophils % (Manual) 1 % (0-3) Basophils % (Manual) 1 % (0-2) Band Neutrophils 0 % (0-8) Platelet Estimate Adequate Platelet Morphology Normal Hypochromasia 2+ Anisocytosis 3+ Macrocytosis 2+ Sodium Level 133 mEQ/L (135-145) L Potassium Level 4.8 mEQ/L (3.4-4.9) Chloride Level 90 mEQ/L (98-107) L Carbon Dioxide Level 24 mEQ/L (20-30) Anion Gap 19 (5-15) H Blood Urea Nitrogen 41 mg/dL (7-23) H Creatinine 6.3 mg/dL (0.7-1.2) H Estimat Glomerular Filtration Rate 11.0 mL/min (>60) Glucose Level 73 mg/dL (74-106) L Calcium Level 9.2 mg/dL (8.6-10.2) Total Bilirubin 1.5 mg/dL (0.0-1.2) H Direct Bilirubin 0.9 mg/dL (0.1-0.3) H Aspartate Amino Transf (AST/SGOT) 14 U/L (5-40) Alanine Aminotransferase (ALT/SGPT) 5 U/L (3-41) Alkaline Phosphatase 114 U/L (40-129) Total Protein 6.3 g/dL (6.6-8.7) L Albumin 3.2 g/dL (3.5-5.2) L Globulin 3.1 g/dL Albumin/Globulin Ratio 1.0 (1.0-2.7) Current Medications Medications (Trade) Dose Ordered Sig/Lillian Route PRN Reason Start Time Stop Time Status Last Admin Dose Admin Acetaminophen (Tylenol) 650 mg Q4H PRN ORAL Fever 10/06/16 15:30 11/05/16 15:29 10/10/16 06:37 Dextrose (Dextrose 50%) STAT PRN IV Hypoglycemia 10/06/16 19:30 11/05/16 19:29 Epoetin Joseph (Procrit (for ESRD on dialysis)) 5,000 units MON-WED-TUE SUBQ 10/06/16 21:00 11/05/16 20:59 10/22/16 21:00 Insulin Aspart (NovoLOG) BEFORE MEALS AND HS SUBQ 10/06/16 16:30 11/05/16 16:29 Lidocaine (Lidoderm 5% PATCH) 1 patch DAILY TDERMAL 10/07/16 09:00 11/06/16 08:59 10/23/16 10:00 Lisinopril (Zestril) 2.5 mg DAILY ORAL 10/24/16 09:00 11/23/16 08:59 Menthol/Methyl Salicylate (Bengay) 1 applic FOUR TIMES A DAY TOPIC 10/10/16 13:00 11/09/16 12:59 10/23/16 10:01 Ondansetron HCl (Zofran) 4 mg Q6H PRN IVP Nausea & Vomiting 10/06/16 13:30 11/05/16 13:29 Pantoprazole (Protonix) 40 mg ACBREAKFAST ORAL 10/09/16 06:30 11/06/16 08:59 10/23/16 06:10 Polyethylene Glycol (Miralax) 17 gm DAILYPRN PRN ORAL Constipation 10/06/16 19:30 11/05/16 19:29 10/12/16 21:13 Tramadol HCl (Ultram) 50 mg Q4H PRN ORAL moderate pain 10/21/16 21:15 10/28/16 21:14 10/22/16 21:05 Vitamin B Complex/ Vit C/Folic Acid (Nephrovite) 1 tab DAILY ORAL 10/07/16 09:00 11/06/16 08:59 10/23/16 10:00 Ivania Bhardwaj M.D. Oct 23, 2016 15:23
--- NOTE | 2016-10-23 16:20 | Pulmonology Progress Note ---
Assessment/Plan Problems: (1) Chest pain Assessment & Plan: stress study was negative (2) Acute respiratory failure Assessment & Plan: improved (3) Anemia in chronic kidney disease (4) ESRD (end stage renal disease) on dialysis (5) Fluid overload (6) Cocaine abuse (7) Back pain Assessment/Plan Hd access fell off, Needs a new access cardiac evaluation appreciated HD as needed med/surg if ok with Cardio Subjective ROS Limited/Unobtainable: No Cardiovascular: Reports: chest pain, palpitations Allergies: Coded Allergies: No Known Allergies (Unverified , 09/28/16) Objective Last 24 Hour Vital Signs Date Time Temp Pulse Resp B/P Pulse Ox O2 Delivery O2 Flow Rate FiO2 10/23/16 14:30 97.4 88 20 119/59 Room Air 10/23/16 14:30 Room Air 10/23/16 11:38 96.4 87 18 126/71 99 Room Air 10/23/16 08:00 96.3 103 20 104/58 100 Room Air 10/23/16 04:00 96.1 99 16 116/65 100 Room Air 10/23/16 00:00 96.8 83 16 104/71 100 Room Air 10/22/16 20:11 122/72 10/22/16 20:00 96.6 96 20 121/74 81 Room Air 10/22/16 18:45 Room Air 2.0 21 Intake and Output 10/22/16 10/23/16 19:00 07:00 Intake Total 630 ml 480 ml Output Total 100 ml Balance 630 ml 380 ml Intake Oral 630 ml 480 ml Output Urine Total 100 ml # Voids 1 3 General Appearance: no acute distress HEENT: normocephalic, atraumatic, PERRL Respiratory/Chest: chest wall non-tender, decreased breath sounds, accessory muscle use Cardiovascular: normal peripheral pulses, normal rate, regular rhythm, no JVD Abdomen: normal bowel sounds, soft, non tender, no organomegaly Genitourinary: normal external genitalia Extremities: no cyanosis Skin: no rash, no lesions 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: 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, no motor/sensory deficits Laboratory Tests 10/23/16 04:50: White Blood Count 6.2, Red Blood Count 2.64L, Hemoglobin 8.6L, Hematocrit 29.4L , Mean Corpuscular Volume 111H, Mean Corpuscular Hemoglobin 32.4H, Mean Corpuscular Hemoglobin Concent 29.2L, Red Cell Distribution Width 21.6H, Platelet Count 275, Mean Platelet Volume 6.1L, Neutrophils (%) (Auto) , Lymphocytes (%) (Auto) , Monocytes (%) (Auto) , Eosinophils (%) (Auto) , Basophils (%) (Auto) , Differential Total Cells Counted 100, Neutrophils % ( Manual) 88H, Lymphocytes % (Manual) 4L, Monocytes % (Manual) 6, Eosinophils % ( Manual) 1, Basophils % (Manual) 1, Band Neutrophils 0, Platelet Estimate Adequate, Platelet Morphology Normal, Hypochromasia 2+, Anisocytosis 3+, Macrocytosis 2+, Sodium Level 133L, Potassium Level 4.8, Chloride Level 90L, Carbon Dioxide Level 24, Anion Gap 19H, Blood Urea Nitrogen 41H, Creatinine 6.3H , Estimat Glomerular Filtration Rate 11.0, Glucose Level 73L, Calcium Level 9.2 , Total Bilirubin 1.5H, Direct Bilirubin 0.9H, Aspartate Amino Transf (AST/SGOT ) 14, Alanine Aminotransferase (ALT/SGPT) 5, Alkaline Phosphatase 114, Total Protein 6.3L, Albumin 3.2L, Globulin 3.1, Albumin/Globulin Ratio 1.0 Current Medications Medications (Trade) Dose Ordered Sig/Lillian Route PRN Reason Start Time Stop Time Status Last Admin Dose Admin Acetaminophen (Tylenol) 650 mg Q4H PRN ORAL Fever 10/06/16 15:30 11/05/16 15:29 10/10/16 06:37 Dextrose (Dextrose 50%) STAT PRN IV Hypoglycemia 10/06/16 19:30 11/05/16 19:29 Epoetin Joesph (Procrit (for ESRD on dialysis)) 5,000 units TUE-WED-TUE SUBQ 10/06/16 21:00 11/05/16 20:59 10/22/16 21:00 Insulin Aspart (NovoLOG) BEFORE MEALS AND HS SUBQ 10/06/16 16:30 11/05/16 16:29 Lidocaine (Lidoderm 5% PATCH) 1 patch DAILY TDERMAL 10/07/16 09:00 11/06/16 08:59 10/23/16 10:00 Lisinopril (Zestril) 2.5 mg DAILY ORAL 10/24/16 09:00 11/23/16 08:59 Menthol/Methyl Salicylate (Bengay) 1 applic FOUR TIMES A DAY TOPIC 10/10/16 13:00 11/09/16 12:59 10/23/16 10:01 Ondansetron HCl (Zofran) 4 mg Q6H PRN IVP Nausea & Vomiting 10/06/16 13:30 11/05/16 13:29 Pantoprazole (Protonix) 40 mg ACBREAKFAST ORAL 10/09/16 06:30 11/06/16 08:59 10/23/16 06:10 Polyethylene Glycol (Miralax) 17 gm DAILYPRN PRN ORAL Constipation 10/06/16 19:30 11/05/16 19:29 10/12/16 21:13 Tramadol HCl (Ultram) 50 mg Q4H PRN ORAL moderate pain 10/21/16 21:15 10/28/16 21:14 10/22/16 21:05 Vitamin B Complex/ Vit C/Folic Acid (Nephrovite) 1 tab DAILY ORAL 10/07/16 09:00 11/06/16 08:59 10/23/16 10:00 CARLOS ALBERTO HERMAN Oct 23, 2016 16:19
--- NOTE | 2016-10-23 17:09 | General Progress Note ---
Assessment/Plan Assessment/Plan Problems: (1) GIB (gastrointestinal bleeding) ICD Codes: K92.2 - Gastrointestinal hemorrhage, unspecified SNOMED: 64263021 (2) Cocaine abuse ICD Codes: F14.10 - Cocaine abuse, uncomplicated SNOMED: 62815052, 095907898 (3) Anemia in chronic kidney disease ICD Codes: N18.9 - Chronic kidney disease, unspecified; D63.1 - Anemia in chronic kidney disease SNOMED: 752997857, 615107309 (4) Chest pain ICD Codes: R07.9 - Chest pain, unspecified SNOMED: 88592545, [id number] Qualifiers: Qualified Codes: R07.9 - Chest pain, unspecified Status: unchanged Assessment/Plan SUMMARY OF FINDINGS: 1. Significant diverticulosis. 2. Two polyps removed, see above for details. 3. Internal hemorrhoids. RECOMMENDATIONS: ok for DC per GI standpoint cardiac diet monitor H&H, transfuse prn PPI fu biopsy for HP >> negative repeat colon x 3 years fu labs fu with PCP Subjective Allergies: Coded Allergies: No Known Allergies (Unverified , 09/28/16) Subjective Feels OK no abd pain tolerating PO (+) BM Objective Last 24 Hour Vital Signs Date Time Temp Pulse Resp B/P Pulse Ox O2 Delivery O2 Flow Rate FiO2 10/23/16 16:00 97.2 84 21 116/58 100 Room Air 10/23/16 14:30 97.4 88 20 119/59 Room Air 10/23/16 14:30 Room Air 10/23/16 11:38 96.4 87 18 126/71 99 Room Air 10/23/16 08:00 96.3 103 20 104/58 100 Room Air 10/23/16 04:00 96.1 99 16 116/65 100 Room Air 10/23/16 00:00 96.8 83 16 104/71 100 Room Air 10/22/16 20:11 122/72 10/22/16 20:00 96.6 96 20 121/74 81 Room Air 10/22/16 18:45 Room Air 2.0 21 Intake and Output 10/22/16 10/23/16 19:00 07:00 Intake Total 630 ml 480 ml Output Total 100 ml Balance 630 ml 380 ml Intake Oral 630 ml 480 ml Output Urine Total 100 ml # Voids 1 3 Laboratory Tests 10/23/16 04:50: White Blood Count 6.2, Red Blood Count 2.64L, Hemoglobin 8.6L, Hematocrit 29.4L , Mean Corpuscular Volume 111H, Mean Corpuscular Hemoglobin 32.4H, Mean Corpuscular Hemoglobin Concent 29.2L, Red Cell Distribution Width 21.6H, Platelet Count 275, Mean Platelet Volume 6.1L, Neutrophils (%) (Auto) , Lymphocytes (%) (Auto) , Monocytes (%) (Auto) , Eosinophils (%) (Auto) , Basophils (%) (Auto) , Differential Total Cells Counted 100, Neutrophils % ( Manual) 88H, Lymphocytes % (Manual) 4L, Monocytes % (Manual) 6, Eosinophils % ( Manual) 1, Basophils % (Manual) 1, Band Neutrophils 0, Platelet Estimate Adequate, Platelet Morphology Normal, Hypochromasia 2+, Anisocytosis 3+, Macrocytosis 2+, Sodium Level 133L, Potassium Level 4.8, Chloride Level 90L, Carbon Dioxide Level 24, Anion Gap 19H, Blood Urea Nitrogen 41H, Creatinine 6.3H , Estimat Glomerular Filtration Rate 11.0, Glucose Level 73L, Calcium Level 9.2 , Total Bilirubin 1.5H, Direct Bilirubin 0.9H, Aspartate Amino Transf (AST/SGOT ) 14, Alanine Aminotransferase (ALT/SGPT) 5, Alkaline Phosphatase 114, Total Protein 6.3L, Albumin 3.2L, Globulin 3.1, Albumin/Globulin Ratio 1.0 Height (Feet): 5 Height (Inches): 2.00 Weight (Pounds): 160 Objective WDWN NCAT Supple CTA RR soft ND NT no edema non focal ONESIMO PERALES Oct 23, 2016 17:09
[2016-10-24 04:08] VITALS: BP 114/61
[2016-10-24] MEDS: NovoLOG Insulin Flexpen SUBQ SCH ×2 (06:06→11:30)
[2016-10-24 08:00] VITALS: BP 109/67
--- NOTE | 2016-10-24 08:10 | General Progress Note ---
Assessment/Plan Assessment/Plan ASSESSMENT: 1. Anemia secondary to end-stage renal disease. Ferritin is 711. Is on epogen and HD prn basis 2. Acute drop in hgb, consider GI bleed, has been cleared by cards, pending colo 3. Thrombocytopenia potentially secondary to underlying infection. hep and hiv - , now improved 4. Coagulopathy INR is 1.2, improved 5. Diabetes mellitus. 6. End-stage renal disease on hemodialysis. 7. Cocaine use history. RECOMMENDATIONS: 1. Monitor counts. 2. Transfuse if hemoglobin <7 3. Continue epogen 4. Followup GI recs - now s/p colo 5. Ultrasound of the abdomen has been reviewed 6. Anemia workup reviewed 7. Followup on Nephrology, Pulmonary, GI, Cards recs 8. Transfuse if plts <20k 9. DVT prophylaxis with scds 10. GI prophylaxis ppi 11. Pain control. 12. staff. Thank you, Jean-Claude Lopez MD Subjective Constitutional: Reports: no symptoms HEENT: Reports: no symptoms Cardiovascular: Reports: no symptoms Respiratory: Reports: no symptoms Gastrointestinal/Abdominal: Reports: no symptoms Genitourinary: Reports: no symptoms 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: Reports: no symptoms Endocrine: Reports: no symptoms Hematologic/Lymphatic: Reports: anemia Allergies: Coded Allergies: No Known Allergies (Unverified , 09/28/16) Subjective has had no bleeding, asleep Objective Last 24 Hour Vital Signs Date Time Temp Pulse Resp B/P Pulse Ox O2 Delivery O2 Flow Rate FiO2 10/24/16 04:08 97.0 94 19 114/61 99 Room Air 10/23/16 23:56 96.6 99 19 113/66 99 Room Air 10/23/16 19:40 97.9 89 20 118/67 99 Room Air 10/23/16 17:25 Room Air 10/23/16 17:24 97.0 81 18 124/69 96 Room Air 10/23/16 16:00 97.2 84 21 116/58 100 Room Air 10/23/16 14:30 97.4 88 20 119/59 Room Air 10/23/16 14:30 Room Air 10/23/16 11:38 96.4 87 18 126/71 99 Room Air Intake and Output 10/23/16 10/24/16 19:00 07:00 Intake Total 480 ml 340 ml Output Total 1700 ml 620 ml Balance -1220 ml -280 ml Intake Oral 480 ml 340 ml Output Urine Total 620 ml Hemodialysis UF 1700 ml # Voids 2 1 Height (Feet): 5 Height (Inches): 2.00 Weight (Pounds): 145 General Appearance: alert EENT: TMs normal Neck: supple Cardiovascular: regular rhythm Respiratory/Chest: no respiratory distress Abdomen: no organomegaly Extremities: non-tender Edema: no edema noted Leg (L), no edema noted Leg (R) Edema: mild edema Neurologic: alert Skin: warm/dry JEAN-CLAUDE LOPEZ Oct 24, 2016 08:10
[2016-10-24] MEDS: Analgesic Balm 15gm TOPIC SCH ×3 (08:16→13:00)
[2016-10-24] MEDS: Nephrovite tab ORAL SCH (08:16)
[2016-10-24] MEDS ORDERED: Lisinopril 2.5mg tab ORAL SCH (09:00)
--- NOTE | 2016-10-24 09:58 | General Progress Note ---
Assessment/Plan Assessment/Plan (1) Cocaine abuse (2) Chest pain (3) CHF (4) ESRD on Hemodialysis (5) Lumbar sprain s/p fall (6) T spine compression fracture S/P Kyphoplasty. Pt will be continued on tramadol. Pt was d/w Dr. Rodriguez and he concurred. Subjective Date patient seen: Oct 24, 2016 Time patient seen: 07:00 - am Allergies: Coded Allergies: No Known Allergies (Unverified , 09/28/16) Subjective REVIEW OF SYSTEMS: Denies rash, fever, chills, sweating, dizziness, drowsiness, blurred vision, sore throat, or change in weight. No nausea, vomiting, diarrhea, or blood urine. No bowel or bladder incontinence. No dysuria. c/o back pain SUBJECTIVE: Pt reports that his pain has been tolerated on the current medications regimen. Objective Last 24 Hour Vital Signs Date Time Temp Pulse Resp B/P Pulse Ox O2 Delivery O2 Flow Rate FiO2 10/24/16 08:17 109/67 10/24/16 08:00 97.0 102 20 109/67 99 Room Air 10/24/16 04:08 97.0 94 19 114/61 99 Room Air 10/23/16 23:56 96.6 99 19 113/66 99 Room Air 10/23/16 19:40 97.9 89 20 118/67 99 Room Air 10/23/16 17:25 Room Air 10/23/16 17:24 97.0 81 18 124/69 96 Room Air 10/23/16 16:00 97.2 84 21 116/58 100 Room Air 10/23/16 14:30 97.4 88 20 119/59 Room Air 10/23/16 14:30 Room Air 10/23/16 11:38 96.4 87 18 126/71 99 Room Air Intake and Output 10/23/16 10/24/16 19:00 07:00 Intake Total 480 ml 340 ml Output Total 1700 ml 620 ml Balance -1220 ml -280 ml Intake Oral 480 ml 340 ml Output Urine Total 620 ml Hemodialysis UF 1700 ml # Voids 2 1 Height (Feet): 5 Height (Inches): 2.00 Weight (Pounds): 145 Objective PHYSICAL EXAMINATION: GENERAL: Alert, awake, and oriented. HEENT: PERRLA. NECK: Range of motion is full in all directions. No tenderness to paracervical muscles. No adenopathy. LUNGS: Decreased breath sounds bilaterally. HEART: S1 and S2, regular. ABDOMEN: Obese. BACK: Range of motion is decreased in flexion and extension with tenderness to paraspinous and trapezius muscles. EXTREMITIES: No cyanosis, no clubbing, edema noted on RUE. NEURO: No changes. Procedure: NM Bone Scan Whole body Impression: T7 uptake corresponding to relatively recent fracture. Negative exam otherwise. No evidence of metastatic neoplasm ARRON EDWARD Oct 24, 2016 09:58
--- NOTE | 2016-10-24 10:49 | General Progress Note ---
Assessment/Plan Assessment/Plan Problems: (1) GIB (gastrointestinal bleeding) ICD Codes: K92.2 - Gastrointestinal hemorrhage, unspecified SNOMED: 61278829 (2) Cocaine abuse ICD Codes: F14.10 - Cocaine abuse, uncomplicated SNOMED: 75689925, 724463281 (3) Anemia in chronic kidney disease ICD Codes: N18.9 - Chronic kidney disease, unspecified; D63.1 - Anemia in chronic kidney disease SNOMED: 744859609, 294213129 (4) Chest pain ICD Codes: R07.9 - Chest pain, unspecified SNOMED: 29232265, 149187086 Qualifiers: Qualified Codes: R07.9 - Chest pain, unspecified Status: unchanged Assessment/Plan SUMMARY OF FINDINGS: 1. Significant diverticulosis. 2. Two polyps removed, see above for details. 3. Internal hemorrhoids. RECOMMENDATIONS: ok for DC per GI standpoint cardiac diet monitor H&H, transfuse prn PPI fu biopsy for HP >> negative repeat colon x 3 years fu labs fu with PCP Subjective Allergies: Coded Allergies: No Known Allergies (Unverified , 09/28/16) Subjective Feels OK no abd pain tolerating PO (+) BM Objective Last 24 Hour Vital Signs Date Time Temp Pulse Resp B/P Pulse Ox O2 Delivery O2 Flow Rate FiO2 10/24/16 08:17 109/67 10/24/16 08:00 97.0 102 20 109/67 99 Room Air 10/24/16 04:08 97.0 94 19 114/61 99 Room Air 10/23/16 23:56 96.6 99 19 113/66 99 Room Air 10/23/16 19:40 97.9 89 20 118/67 99 Room Air 10/23/16 17:25 Room Air 10/23/16 17:24 97.0 81 18 124/69 96 Room Air 10/23/16 16:00 97.2 84 21 116/58 100 Room Air 10/23/16 14:30 97.4 88 20 119/59 Room Air 10/23/16 14:30 Room Air 10/23/16 11:38 96.4 87 18 126/71 99 Room Air Intake and Output 10/23/16 10/24/16 19:00 07:00 Intake Total 480 ml 340 ml Output Total 1700 ml 620 ml Balance -1220 ml -280 ml Intake Oral 480 ml 340 ml Output Urine Total 620 ml Hemodialysis UF 1700 ml # Voids 2 1 Laboratory Tests 10/24/16 10:05: Sodium Level [Pending], Potassium Level [Pending], Chloride Level [Pending], Carbon Dioxide Level [Pending], Blood Urea Nitrogen [Pending], Creatinine [ Pending], Estimat Glomerular Filtration Rate [Pending], Glucose Level [Pending] , Calcium Level [Pending], Phosphorus Level [Pending], Total Bilirubin [Pending] , Aspartate Amino Transf (AST/SGOT) [Pending], Alanine Aminotransferase (ALT/ SGPT) [Pending], Alkaline Phosphatase [Pending], Total Protein [Pending], Albumin [Pending], Globulin [Pending] Height (Feet): 5 Height (Inches): 2.00 Weight (Pounds): 145 Objective WDWN NCAT Supple CTA RR soft ND NT no edema non focal ONESIMO PERALES Oct 24, 2016 10:49
[2016-10-24 10:53] LABS: CREATININE 5.8 mg/dL (0.7-1.2); GLOMERULAR FILTRATION RATE 12.1 mL/min (>60); PHOSPHORUS 5.2 mg/dL (2.5-4.8); POTASSIUM 4.8 mEQ/L (3.4-4.9); TOTAL PROTEIN 6.2 g/dL (6.6-8.7)
[2016-10-24] MEDS ORDERED: TRAMADOL HCL50 MG ORAL (10:53)
[2016-10-24 11:10] LABS: BILIRUBIN,DIRECT 0.9 mg/dL (0.1-0.3)
--- NOTE | 2016-10-24 11:26 | General Progress Note ---
Assessment/Plan Status: unchanged Assessment/Plan Status: (1) ESRD (end stage renal disease) on dialysis (2) Chest pain (3) Cocaine abuse (4) Anemia in chronic kidney disease (5) ? DVT right UE (6) Cardiomyopathy: Global left ventricular hypokinesis. Worse septal apper akinetic s. Left ventricular ejection fraction estimated to be 30-35 %. MR: Positive for acute or subacute T7 vertebral body compression fracture. Plan: had dialysis access placed 10/12 HD 10/23- was inefficient due to catheter mal-function- WIll change catheter in am 10/25/16 On Brandon inhibitors- per consultants ? DC planning after HD Subjective ROS Limited/Unobtainable: No Constitutional: Reports: malaise, weakness Allergies: Coded Allergies: No Known Allergies (Unverified , 09/28/16) Objective Last 24 Hour Vital Signs Date Time Temp Pulse Resp B/P Pulse Ox O2 Delivery O2 Flow Rate FiO2 10/24/16 08:17 109/67 10/24/16 08:00 97.0 102 20 109/67 99 Room Air 10/24/16 04:08 97.0 94 19 114/61 99 Room Air 10/23/16 23:56 96.6 99 19 113/66 99 Room Air 10/23/16 19:40 97.9 89 20 118/67 99 Room Air 10/23/16 17:25 Room Air 10/23/16 17:24 97.0 81 18 124/69 96 Room Air 10/23/16 16:00 97.2 84 21 116/58 100 Room Air 10/23/16 14:30 97.4 88 20 119/59 Room Air 10/23/16 14:30 Room Air 10/23/16 11:38 96.4 87 18 126/71 99 Room Air Intake and Output 10/23/16 10/24/16 19:00 07:00 Intake Total 480 ml 340 ml Output Total 1700 ml 620 ml Balance -1220 ml -280 ml Intake Oral 480 ml 340 ml Output Urine Total 620 ml Hemodialysis UF 1700 ml # Voids 2 1 Laboratory Tests 10/24/16 10:05: Sodium Level 129L, Potassium Level 4.8, Chloride Level 89L, Carbon Dioxide Level 23, Anion Gap 17H, Blood Urea Nitrogen 34H, Creatinine 5.8H, Estimat Glomerular Filtration Rate 12.1, Glucose Level 86, Calcium Level 9.0, Phosphorus Level 5.2H, Total Bilirubin 1.5H, Direct Bilirubin 0.9H, Aspartate Amino Transf (AST/SGOT) 14, Alanine Aminotransferase (ALT/SGPT) 5, Alkaline Phosphatase 112, Total Protein 6.2L, Albumin 3.1L, Globulin 3.1, Albumin/ Globulin Ratio 1.0 Height (Feet): 5 Height (Inches): 2.00 Weight (Pounds): 145 General Appearance: no apparent distress Objective no change in PE KALEY RIOS Oct 24, 2016 11:26
[2016-10-24 11:30] VITALS: BP 110/60
--- NOTE | 2016-10-24 13:31 | General Progress Note ---
Assessment/Plan Problem List: (1) Cocaine abuse ICD Codes: F14.10 - Cocaine abuse, uncomplicated SNOMED: 04482634, 632833048 (2) Chest pain ICD Codes: R07.9 - Chest pain, unspecified SNOMED: 50898812, 647889434 Qualifiers: Qualified Codes: R07.9 - Chest pain, unspecified Status: progressing Assessment/Plan compression fracture s/p kyphoplasty dc if ok by dr stubbs dc home w hh trying to find hh per case managment my order is to dc to [facility] w [facility] per case managent his insurance is not authorizing snf Subjective ROS Limited/Unobtainable: Yes Constitutional: Reports: no symptoms Allergies: Coded Allergies: No Known Allergies (Unverified , 09/28/16) Subjective back pain Objective Last 24 Hour Vital Signs Date Time Temp Pulse Resp B/P Pulse Ox O2 Delivery O2 Flow Rate FiO2 10/24/16 11:30 98.0 106 20 110/60 99 Room Air 10/24/16 08:17 109/67 10/24/16 08:00 97.0 102 20 109/67 99 Room Air 10/24/16 04:08 97.0 94 19 114/61 99 Room Air 10/23/16 23:56 96.6 99 19 113/66 99 Room Air 10/23/16 19:40 97.9 89 20 118/67 99 Room Air 10/23/16 17:25 Room Air 10/23/16 17:24 97.0 81 18 124/69 96 Room Air 10/23/16 16:00 97.2 84 21 116/58 100 Room Air 10/23/16 14:30 97.4 88 20 119/59 Room Air 10/23/16 14:30 Room Air Intake and Output 10/23/16 10/24/16 18:59 06:59 Intake Total 480 ml 340 ml Output Total 1700 ml 620 ml Balance -1220 ml -280 ml Intake Oral 480 ml 340 ml Output Urine Total 620 ml Hemodialysis UF 1700 ml # Voids 2 1 Laboratory Tests 10/24/16 10:05: Sodium Level 129L, Potassium Level 4.8, Chloride Level 89L, Carbon Dioxide Level 23, Anion Gap 17H, Blood Urea Nitrogen 34H, Creatinine 5.8H, Estimat Glomerular Filtration Rate 12.1, Glucose Level 86, Calcium Level 9.0, Phosphorus Level 5.2H, Total Bilirubin 1.5H, Direct Bilirubin 0.9H, Aspartate Amino Transf (AST/SGOT) 14, Alanine Aminotransferase (ALT/SGPT) 5, Alkaline Phosphatase 112, Total Protein 6.2L, Albumin 3.1L, Globulin 3.1, Albumin/ Globulin Ratio 1.0 Height (Feet): 5 Height (Inches): 2.00 Weight (Pounds): 145 EENT: PERRL/EOMI Neck: supple Cardiovascular: normal peripheral pulses Respiratory/Chest: lungs clear Abdomen: soft Liu Elizondo MD Oct 24, 2016 13:31
--- NOTE | 2016-10-25 13:34 | Discharge Summary ---
Discharge Summary Hospital Course Date of Admission Sep 28, 2016 at 17:55 Date of Discharge Oct 24, 2016 at 11:45 Admitting Diagnosis chest pain HPI Demetrius Hines is a 60 year old male who was admitted on Sep 28, 2016 at 17: 55 for Chest Pain Hospital Course dc summary dictated #[id number] Discharge Medications Continued Medications: Tramadol Hcl* (Ultram*) 50 Mg Tablet 50 MG ORAL Q4HR PRN for For Pain, #20 TAB 0 Refills Discharge Discharge Disposition Patient was discharged to Home with Home Health(06) Discharge Diagnoses: [facility]Kate PONCE Oct 25, 2016 13:34
--- NOTE | 2016-10-26 03:28 | Discharge Summary 2 SIG ---
DATE OF ADMISSION: 09/28/2016 DATE OF DISCHARGE: 10/24/2016 REASON FOR ADMISSION: 60-year-old male, presented with chest pain. He endorsed using cocaine prior to onset of the chest pain and also complained of associated shortness of breath. He denied fever or chills. No cough. No abdominal pain. The patient with end-stage renal disease and had hemodialysis done day prior to admission. In emergency department, EKG revealed normal sinus rhythm. No ectopy, no ST changed, but multiply premature ventricular contractions. Chest x-ray revealed cardiomegaly, no pneumothorax, and right more than left pulmonary congestion. Vital signs were stable. The patient was given aspirin for cocaine induced chest pain, the patient started on BiPAP with improvement in reparatory status. No nitro was given due to low blood pressure. The patient was admitted to [facility] under Dr. Elizondo. ADMITTING DIAGNOSES: 1. Chest pain. 2. Cocaine abuse. 3. Acute respiratory failure requiring BiPAP. 4. End-stage renal disease, on hemodialysis. FINAL DIAGNOSES: 1. Atypical chest pain, secondary to cocaine vasospasm. 2. Acute respiratory failure, resolved. 3. Severe cardiomyopathy. 4. Moderate pulmonary hypertension. 5. Cocaine abuse. 6. End-stage renal disease, on hemodialysis. 7. Anemia of chronic renal disease secondary to gastrointestinal bleeding, status post blood transfusion. 8. Subacute compression fracture at T7. 9. Status post kyphoplasty. 10. Back pain. 11. Gastrointestinal bleeding, status post esophagogastroduodenoscopy and colonoscopy. HOSPITAL COURSE: The patient was admitted to [facility]. Initially, on the BiPAP. Serial troponin negative. EKG showed sinus rhythm. No ST changes with frequent premature ventricular contractions. Cardiology followed. Drop Wire Operator ruled out for acute myocardial infarction. Per Cardiology, chest pain atypical, secondary to cocaine vasospasm. Echocardiogram revealed ejection fraction of 30% to 35% and right ventricular systolic pressure of 50. Cardiology recommended medical management of severe cardiomyopathy. No beta-david due to the history of cocaine abuse. The patient was started on low dose of THERESA inhibitor. Nuclear stress test revealed no evidence of ischemia. Subsequently the patient was able to be weaned from the BiPAP to room air and oxygen saturation was stable. Pulmonary toilet provided as needed. Lathe Winder follow. Hemodialysis done as per community coordinator. Renal parameters and electrolytes were closely monitored. Renal catheter needed to be replaced. The patient showed evidence of anemia, status post blood transfusion. Anemia likely combination of chronic kidney disease as well as secondary to the GI bleeding. Stool OB x3 was positive. Gastrointestinal specialist followed. The patient undergone esophagogastroduodenoscopy and colonoscopy. EGD revealed gastritis. Biopsy negative for H. pylori or dysplasia. Colonoscopy revealed significant diverticulosis , status post two polyps removal and internal hemorrhoids. Pathology for polyps negative for dysplasia. Hemoglobin and hematocrit upon discharge were stable, at the baseline. The patient complained of severe back pain ; pain management provided. Pain specialist followed . MRI revealed acute versus subacute compression fracture at the T7 vertebral body. Bone scan confirmed compression fracture, no evidence of malignancy or metastasis. Neurosurgeon was called on a consult. Neurosurgeon suggested kyphoplasty by interventional radiology and explained to the patient all the risks and benefits associated with the procedure. The patient was eager to proceed. The patient status post kyphoplasty. Neurosurgeon cleared for discharge. 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 I have been assigned to dictate discharge summary on this account and I was not involved in the patient's management. Kate Menasaint [facility]verChristian N.PTanvir DR: RANDY JOB#: [id number] CC: JOEY
[2016-10-28 10:12] VITALS: BP 116/65
--- NOTE | 2016-10-28 10:12 | 48 Hour Post Anesthesia Eval ---
Post Anesthesia Evaluation Procedure: Kyphoplasty Date of Evaluation: Oct 23, 2016 Time of Evaluation: 06:00 Blood Pressure Systolic: 116 0: 65 Pulse Rate: 99 Respiratory Rate: 16 Temperature (Fahrenheit): 96.1 O2 Sat by Pulse Oximetry: 100 Airway: patent Nausea: No Vomiting: No Pain Intensity: 2 Hydration Status: adequate Cardiopulmonary Status: at baseline Mental Status/LOC: patient returned to baseline Post-Anesthesia Complications: 0 Follow-up care needed: N/A - further care as per primary team ZAFAR ALMEIDA M.D. Oct 28, 2016 10:12
--- NOTE | 2016-10-29 15:03 | Diagnostic Imaging Report ---
Indications: Acute compression fracture T7 vertebral body with severe pain interfering with her ability to walk/conduct normal daily activities and requiring hospitalization for IV pain control. Technique: Procedure, indications, risks, alternatives were explained to the patient, who understands and gives written consent to proceed. The patient was placed on the procedure table in prone position. Strict aseptic technique was utilized, including hand washing, use of hat and mask, use of sterile gown and gloves, prepping of upper back skin with 2% chlorhexidine solution, and application of full body sterile barrier over this area. Biplane fluoroscopy utilized. Each pedicle of the T7 vertebral body was localized fluoroscopically. The skin over each was marked, then skin and subcutaneous soft tissues to the posterior margin of each pedicle infiltrated extensively with 1% lidocaine with sodium bicarbonate and epinephrine. A small dermatotomy was made over each pedicle, through which a Kyphon One-Step introducer cannula was advanced under direct fluoroscopic guidance with the aid of a mallet, through each pedicle into the posterior aspect of the respective side of the vertebral body. A tract was drilled into the vertebral body through each cannula. Bone marrow fragments removed from drill bit, placed in formalin solution, sent to Pathology for analysis. A 15 mm Kyphon kyphoplasty balloon was advanced through each cannula into the respective side of the vertebral body, then balloons simultaneously inflated under direct fluoroscopic observation until the desired end point was achieved. The balloons were left inflated for several minutes. During this time, polymethylmethacrylate bone cement was mixed with barium powder on the back table and allowed to cure to the desired consistency. The balloons were deflated and removed. The bone cement was administered through the introducer cannulae in small alternating aliquots under fluoroscopic observation into the C7 vertebral body until the desired end point was achieved. A total of 2.5cc bone cement administered. The cement was allowed to harden, then both introducer cannulae removed. Dermatotomy sites manually compressed to achieve hemostasis, then cleansed and bandaged. Final images were obtained. The patient tolerated the procedures well without immediate complications and was returned to same day surgery in stable condition. Ancef 1 g one time dose was administered intravenously for antibiotic prophylaxis. Deep sedation provided by anesthesiology, tolerated well. Total fluoroscopy time: 892.4 minutes. Dose-area product: 1.57 mGy-m2 Findings: Final images demonstrate good partial fill of the T7 vertebral body with bone cement. There is normal anterior extraosseous extravasation of cement. Final images demonstrate no significant height or angulation change compared to initial images. IMPRESSION: Percutaneous kyphoplasty of T7 vertebral body compression fracture with good radiographic result. Subjective pain relief will be is assessed once the patient has recovered from sedation.
== END 2016-10-24 11:45 | disposition home health service (06) | DRG 950 ==
LOC: EDBD 16:22 → EMR 16:29 → EDBEDREQSVC 17:47 → EDBEDREQ 17:47 → 2W 17:55 → EDBEDREQ 20:29 → 4E 09-30 19:51 → 2E 10-06 12:43 → 4W 10-12 22:09
PROC: 5A09357 Assistance with Respiratory Ventilation, Less than 24 Consecutive Hours, Continuous Positive Airway Pressure (ICD-10-PCS; 2016-09-28)
PROC: 5A1D60Z (ICD-10-PCS; 2016-09-29)
PROC: 30233N1 Transfusion of Nonautologous Red Blood Cells into Peripheral Vein, Percutaneous Approach (ICD-10-PCS; 2016-10-02)
PROC: 02HV33Z Insertion of Infusion Device into Superior Vena Cava, Percutaneous Approach (ICD-10-PCS; 2016-10-12)
PROC: B548ZZA Ultrasonography of Superior Vena Cava, Guidance (ICD-10-PCS; 2016-10-12)
PROC: 0DBL8ZX Excision of Transverse Colon, Via Natural or Artificial Opening Endoscopic, Diagnostic (ICD-10-PCS; 2016-10-13)
PROC: 0DBK8ZX Excision of Ascending Colon, Via Natural or Artificial Opening Endoscopic, Diagnostic (ICD-10-PCS; principal; 2016-10-13 08:54)
PROC: 0PS43ZZ Reposition Thoracic Vertebra, Percutaneous Approach (ICD-10-PCS; 2016-10-21)
PROC: 0PU43JZ Supplement Thoracic Vertebra with Synthetic Substitute, Percutaneous Approach (ICD-10-PCS; 2016-10-21)
DX: F14.10 Cocaine abuse, uncomplicated (principal); J96.00 Acute respiratory failure, unspecified whether with hypoxia or hypercapnia; I13.2 Hypertensive heart and chronic kidney disease with heart failure and with stage 5 chronic kidney disease, or end stage renal disease; D68.9 Coagulation defect, unspecified; N18.6 End stage renal disease; E11.22 Type 2 diabetes mellitus with diabetic chronic kidney disease; I42.9 Cardiomyopathy, unspecified; I82.621 Acute embolism and thrombosis of deep veins of right upper extremity; D69.6 Thrombocytopenia, unspecified; I45.2 Bifascicular block; Z99.2 Dependence on renal dialysis; D63.1 Anemia in chronic kidney disease; I50.9 Heart failure, unspecified; F17.210 Nicotine dependence, cigarettes, uncomplicated; B95.2 Enterococcus as the cause of diseases classified elsewhere; I27.2 Other secondary pulmonary hypertension; I08.1 Rheumatic disorders of both mitral and tricuspid valves; K92.2 Gastrointestinal hemorrhage, unspecified; K29.70 Gastritis, unspecified, without bleeding; Z16.21 Resistance to vancomycin; D12.3 Benign neoplasm of transverse colon; D12.2 Benign neoplasm of ascending colon; K57.90 Diverticulosis of intestine, part unspecified, without perforation or abscess without bleeding; K64.8 Other hemorrhoids; R07.89 Other chest pain; M48.54XA Collapsed vertebra, not elsewhere classified, thoracic region, initial encounter for fracture; D50.0 Iron deficiency anemia secondary to blood loss (chronic)
CPT/HCPCS: 22513; 36415; 36569; 71010; 72070; 72110; 72146; 76700; 78306; 78451; 80048; 80053; 80061; 80069; 80300; 82140; 82248; 82270; 82550; 82553; 82728; 82962; 82977; 83036; 83540; 83550; 83735; 83880; 84100; 84439; 84443; 84484; 84550; 85007; 85025; 85060; 85610; 85651; 85730; 86140; 86703; 86705; 86709; 86803; 86850; 86900; 86901; 86920; 87070; 87081; 87181; 87205; 87340; 93005; 93017; 93306; 93971; 94003; 94150; 94664; J0153; J1815; J2250; J7620